=== PATIENT | male | born 1940 | race Caucasian/White ===

== ENCOUNTER 2023-06-10 12:15 | Inpatient (IN) | payer OTHER ==
--- OUTSIDE RECORDS SUMMARY | 2023-06-10 12:20 | XMS REPORT | Continuity of Care Document ---
Author Name Unknown Address [address] [facility] [address] [place] [address] [facility] [address] [facility] [address] [place] [address] Care Team Providers Care Airborne And Air Delivery Specialist Name Role Phone MARVIN SNELL Primary Care Physician Unavailab Marvin Arguello Attending Clinician Unavailable RED DAUGHERTY Attending Clinician Unavailable TUNDE LOPEZ Attending Clinician Unavailable GLENYS QUARLES Attending Clinician UnavailGlenys [place] Attending Clinician [phone] Doctor Unassigned, [place] Attending Clinician U Red Suárez MD Attending Clinician [phone], [facility] Lab Attending Clinician Unavailable , [facility] Surg Spec Procedure Attending Clinician Unavailable Nurse, [facility] Surgery Gu Attending Clinician TERRI Hernandez Attending Clinician Unavailable Gramm Terri GIVENS Attending Clinician [phone] Only, [facility] Test Attending Clinician Unavailable Hosea Alcaraz MD Attending Clinician [phone] [place]_A_AH Attending Clinician Unavailable Marcin Escobedo MD Attending Clinician [phone] Room, [facility] Uro Procedure Attending Clinician UnaMARCIN Mc Attending Clinician Unavailable Jaya MCCARTY, Lisa Attending Clinician Unavailable Tunde Lopez MD Attending Clinician [phone] RED DAUGHERTY Admitting Clinician Unavailable TUNDE LOPEZ Admitting Clinician Unavailable Red Daugherty MD Admitting Clinician [phone] [place]_A_AH Admitting Clinician Unavailable Grayson MARSHALL, Tunde Admitting Clinician Payers Payer Name Policy Type Policy Number Effective Date Expirati on Date Source ROSALIND TROTTER [id number] 2019 00:00:00 [employer] (MEDICARE REPLACEMENT/ADVANT AGE - HMO) [id number] 2019 00:00:00 Problems Condition Name Condition Details Condition Category Status Onset Date Resolution Date Last Treatment Date Treating Clinician Comments Source 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 [facility] Allergies, Adverse Reactions, Alerts Allergy Name Allergy Type Status Severity Reaction(s) Onset Date Inactive Date Treating Clinician Comments Source PENICILL IN DRUG INGREDI Active Unknown-Cmnt 2019-02 0-05 00:00: 00 [facility] Penicill in Propensi ty to adverse reaction s Active Unknown - See comments 2019-02 0-05 00:00: 00 [facility] pcn Adverse Reaction Active Info Not Available [facility] Social History Social Habit Start Date Stop Date Quantity Comments Source Gender identity [facility] History SDOH Alcohol Std Drinks [facility] History SDOH Alcohol Binge [facility] History SDOH Alcohol Comment [facility] History of Social function 2023-03-20 00:00:00 2023-03-20 00:00:00 [facility] Alcohol intake 2023-03-20 00:00:00 2023-03-20 00:00:00 Lifetime non-drinker (finding) [facility] Exposure to SARS-CoV-2 (event) 2022-03-28 00:00:00 2022-04-07 13:24:00 Not sure [facility] Tobacco use and exposure 2021-09-18 00:00:00 2021-09-18 00:00:00 Smokeless tobacco non-user [facility] History SDOH Alcohol Frequency 2019-11-21 00:00:00 2019-11-21 00:00:00 1 [facility] Sex Assigned At 1940 00:00:00 1940 00:00:00 [facility] Smoking Status Start Date Stop Date Source Never smoked tobacco [facility] Medications Ordered Medication Name Filled Medication Name Start Date Stop Date Current Medication? Ordering Clinician Indication Dosage Frequency Signature (SIG) Comments Components Source tamsulosin 0.4 mg 24 hr capsule 03-20 13:56: 33 Yes .4mg 1 capsule. [facility] gentamicin injection 80 mg 2021-02 20:30: 00 11-25 19:43 :00 No [id number] 80mg [facility] Nitrofurant oin&Nit. Macrocryst (MACROBID) 100 mg capsule 2021-02 0 00:00: 00 11-26 04:59 :00 No [id number] 100mg Take 1 capsule by mouth in the morning and 1 capsule in the evening. Do all this for 7 days. [facility] sulfamethox azole-trime thoprim (BACTRIM DS) 800-160 mg per tablet 9-06 00:00: 00 10-28 04:59 :00 No [id number] 1{tbl} Take 1 tablet by mouth in the morning and 1 tablet in the evening. Do all this for 5 days. [facility] gabapentin 300 mg capsule 2019-02 00:00: 00 Yes [id number] 300mg Take 1 capsule by mouth every 8 (eight) hours as needed for Pain (scale 4-6). [facility] ibuprofen 200 mg tablet 2019-02 216 00:00: 00 Yes [id number] 400mg Take 2 tablets by mouth every 6 (six) hours as needed for Pain (scale 1-3). [facility] carvediloL 12.5 mg tablet 2019-02 016 00:00: 00 Yes [id number] 12.5mg Take 1 tablet by mouth 2 (two) times daily with meals. [facility] Tamsulosin HCl Tamsulosin HCl 10-13 00:00: 00 04-10 00:00 :00 No Rohini Davidson 1 capsule [facility] XELPROS 0.005 % dpem 09-29 00:00: 00 Yes INSTILL 1 DROP DAILY IN EACH EYE AT BEDTIME [facility] levothyroxi ne 88 mcg tablet 09-27 00:00: 00 Yes [facility] Vital Signs Vital Name Observation Time Observation Value Comments S ource Systolic blood pressure 2023-03-20 19:57:00 146 mm[Hg] [facility] Diastolic blood pressure 2023-03-20 19:57:00 64 mm[Hg] [facility] Heart rate 2023-03-20 19:52:00 84 /min [facility] Body temperature 2023-03-20 19:52:00 36.22 Dottie [facility] Respiratory rate 2023-03-20 19:52:00 18 /min [facility] Body height 2023-03-20 19:52:00 170.2 cm [facility] Body weight 2023-03-20 19:52:00 53.706 kg [facility] BMI 2023-03-20 19:52:00 18.54 kg/m2 [facility] Oxygen saturation in Arterial blood by Pulse oximetry 2023-03-20 19:52:00 97 /min [facility] Systolic blood pressure 2022-09-03 19:31:00 153 mm[Hg] [facility] Diastolic blood pressure 2022-09-03 19:31:00 84 mm[Hg] [facility] Heart rate 2022-09-03 19:29:00 88 /min [facility] Body temperature 2022-09-03 19:29:00 36.94 Dottie [facility] Respiratory rate 2022-09-03 19:29:00 18 /min [facility] Body weight 2022-09-03 19:29:00 53.071 kg [facility] BMI 2022-09-03 19:29:00 18.32 kg/m2 [facility] Oxygen saturation in Arterial blood by Pulse oximetry 2022-09-03 19:29:00 95 /min [facility] Systolic blood pressure 2022-08-06 19:33:00 141 mm[Hg] [facility] Diastolic blood pressure 2022-08-06 19:33:00 62 mm[Hg] [facility] Heart rate 2022-08-06 19:33:00 74 /min [facility] Respiratory rate 2022-08-06 19:33:00 18 /min [facility] Body height 2022-08-06 19:33:00 170.2 cm [facility] Body weight 2022-08-06 19:33:00 53.524 kg [facility] BMI 2022-08-06 19:33:00 18.48 kg/m2 [facility] Oxygen saturation in Arterial blood by Pulse oximetry 2022-08-06 19:33:00 97 /min [facility] Systolic blood pressure 2022-04-07 19:59:00 139 mm[Hg] [facility] Diastolic blood pressure 2022-04-07 19:59:00 59 mm[Hg] [facility] Heart rate 2022-04-07 19:58:00 90 /min [facility] Body temperature 2022-04-07 19:58:00 36.44 Dottie [facility] Respiratory rate 2022-04-07 19:58:00 18 /min [facility] Body height 2022-04-07 19:58:00 170.2 cm [facility] Body weight 2022-04-07 19:58:00 57.516 kg [facility] BMI 2022-04-07 19:58:00 19.86 kg/m2 [facility] Oxygen saturation in Arterial blood by Pulse oximetry 2022-04-07 19:58:00 99 /min [facility] Systolic blood pressure 2022-01-06 20:43:00 165 mm[Hg] [facility] Diastolic blood pressure 2022-01-06 20:43:00 76 mm[Hg] [facility] Heart rate 2022-01-06 20:43:00 83 /min [facility] Body temperature 2022-01-06 20:42:00 36.5 Dottie [facility] Respiratory rate 2022-01-06 20:42:00 16 /min [facility] Body height 2022-01-06 20:42:00 170.2 cm [facility] Body weight 2022-01-06 20:42:00 57.607 kg [facility] BMI 2022-01-06 20:42:00 19.89 kg/m2 [facility] Oxygen saturation in Arterial blood by Pulse oximetry 2022-01-06 20:42:00 100 /min [facility] Systolic blood pressure 2021-11-25 19:27:00 181 mm[Hg] [facility] Diastolic blood pressure 2021-11-25 19:27:00 76 mm[Hg] [facility] Heart rate 2021-11-25 19:26:00 82 /min [facility] Body temperature 2021-11-25 19:26:00 36.44 Dottie [facility] Respiratory rate 2021-11-25 19:26:00 18 /min [facility] Body height 2021-11-25 19:26:00 170.2 cm [facility] Body weight 2021-11-25 19:26:00 55.792 kg [facility] BMI 2021-11-25 19:26:00 19.26 kg/m2 [facility] Oxygen saturation in Arterial blood by Pulse oximetry 2021-11-25 19:26:00 99 /min [facility] Body height 2021-10-30 18:27:00 170.2 cm [facility] Body weight 2021-10-30 18:27:00 53.252 kg [facility] BMI 2021-10-30 18:27:00 18.39 kg/m2 [facility] Body weight 2021-10-18 19:32:00 54.704 kg [facility] BMI 2021-10-18 19:32:00 18.89 kg/m2 [facility] Body temperature 2021-09-18 19:04:00 36.56 Dottie [facility] Respiratory rate 2021-09-18 19:04:00 18 /min [facility] Body height 2021-09-18 19:04:00 170.2 cm [facility] Body weight 2021-09-18 19:04:00 57.425 kg [facility] BMI 2021-09-18 19:04:00 19.83 kg/m2 [facility] Oxygen saturation in Arterial blood by Pulse oximetry 2021-09-18 19:04:00 97 /min [facility] Systolic blood pressure 2021-09-18 19:04:00 129 mm[Hg] [facility] Diastolic blood pressure 2021-09-18 19:04:00 76 mm[Hg] [facility] Heart rate 2021-09-18 19:04:00 90 /min [facility] Procedures Procedure Date / Time Performed Performing Clinician Source REFERRAL- REQUEST/RESPONSE 2023-03-20 06:01:00 D octor Unassigned, [place] [facility] EXTERNAL PROVIDER RECORDS 2023-02-06 06:01:00 Do ctor Unassigned, [place] [facility] AUTHORIZATION FOR RELEASE OF PHI 2023-01-20 06:01:00 Doctor Unassigned, [place] [facility] DME/SUPPLY JUSTIFICATION 2022-12-26 06:01:00 Doc tor Unassigned, [place] [facility] DME/SUPPLY JUSTIFICATION 2022-11-04 05:01:00 Doc tor Unassigned, [place] [facility] EXTERNAL PROVIDER RECORDS 2022-09-09 05:01:00 Do ctor Unassigned, [place] [facility] US RETROPERITONEAL COMPLETE 2022-08-08 17:39:41 Red Daugherty [facility] PATIENT FINANCIAL POLICY 2022-08-08 16:19:58 Doctor Unassigned, [place] [facility] CONSENT/REFUSAL FOR DIAGNOSIS AND TREATMENT 2022-08-08 16:19:28 Doctor Unassigned, [place] [facility] ASSIGNMENT OF BENEFITS 2022-08-08 16:19:08 Docto r Unassigned, [place] [facility] AUTHORIZATION FOR RELEASE OF PHI 2022-08-05 05:01:00 Doctor Unassigned, [place] [facility] SCANNED LAB RESULTS 2022-08-01 05:01:00 Doctor Finn nassigned, [place] [facility] POCT URINALYSIS AUTO 2022-01-06 20:48:00 Court Quarles [facility] POCT URINALYSIS AUTO 2021-11-25 19:24:00 Stalin Daugherty [facility] DISCLOSURE AND CONSENT, MEDICAL AND SURGICAL PROCEDURES 2021-11-25 05:01:00 Doctor Unassigned, [place] [facility] POCT URINALYSIS AUTO 2021-09-18 19:18:00 Court Quarles [facility] Encounters Start Date/Time End Date/Time Encounter Type Admission Type Attending [facility] Care Facility Care Department Encounter ID Source 2021-03-13 11:29:[address] [facility] [id number] [facility] 2020-12-15 07:25:47 Outpatient RED DAUGHERTY [facility] [id number] [facility] 2020-12-14 22:47:04 Inpatient TUNDE JEFFERSON [facility] [id number] [facility] 2020-12-14 22:46:02 Emergency [facility] [id number] [facility] 2023-09-25 14:15:00 2023-09-25 14:15:00 Outpatient R GLENYS QUARLES [facility] [id number] [facility] 2023-03-20 13:45:00 2023-03-20 14:16:26 Outpatient R GLENYS QUARLES [facility] [id number] [facility] 2023-03-20 13:45:00 2023-03-20 14:16:26 Office Visit Robina [facility] BUILDING 1.2.840.114 350.1.13.10 4.2.7.2.686 [id number] [facility] 2023-03-20 00:00:00 2023-03-20 00:00:00 Orders Only Doctor Unassigned, [place] [facility] 1.2.840.114 350.1.13.10 4.2.7.2.686 [id number] [id number] [facility] 2023-03-11 09:15:00 2023-03-11 09:15:00 [facility] [id number] 2023-03-09 13:45:00 2023-03-09 13:45:00 [facility] [id number] [facility] 2023-02-06 00:00:00 2023-02-06 00:00:00 Orders Only Doctor Unassigned, [place] [facility] 1.2.840.114 350.1.13.10 4.2.7.2.686 [id number] [facility] 2023-01-22 00:00:00 2023-01-22 00:00:00 [facility] 1.2.840.114 350.1.13.10 4.2.7.2.686 [id number] [facility] 2023-01-21 00:00:00 2023-01-21 00:00:00 Telephone Robina [facility] 1.2.840.114 350.1.13.10 4.2.7.2.686 [id number] [facility] 2023-01-20 00:00:00 2023-01-20 00:00:00 Orders Only Doctor Unassigned, [place] [facility] 1.2.840.114 350.1.13.10 4.2.7.2.686 [id number] [facility] 2023-01-15 00:00:00 2023-01-15 00:00:00 Telephone [facility] 1.2.840.114 350.1.13.10 4.2.7.2.686 [id number] [facility] 2022-12-29 00:00:00 2022-12-29 00:00:00 Telephone [facility] 1.2.840.114 350.1.13.10 4.2.7.2.686 [id number] [facility] 2022-12-26 00:00:00 2022-12-26 00:00:00 Orders Only Doctor Unassigned, [place] [facility] 1.2.840.114 350.1.13.10 4.2.7.2.686 [id number] [facility] 2022-11-05 00:00:00 2022-11-05 00:00:00 Telephone [facility] 1.2.840.114 350.1.13.10 4.2.7.2.686 [id number] [facility] 2022-11-04 00:00:00 2022-11-04 00:00:00 Orders Only Doctor Unassigned, [place] [facility] 1.2840.114 350.1.13.10 4.2.7.2.686 [id number] [facility] 2022-09-09 00:00:00 2022-09-09 00:00:00 Orders Only Doctor Unassigned, [place] [facility] 1.2840.114 350.1.13.10 4.2.7.2.686 [id number] [facility] 2022-09-03 14:15:00 2022-09-03 15:29:47 Outpatient R ROBINA [facility] [id number] [facility] 2022-09-03 14:15:00 2022-09-03 15:29:47 Office Visit Quarles, [facility] 1..840.114 350.1.13.10 4.2.7.2.686 [id number] [facility] 2022-08-08 11:20:33 2022-08-08 23:59:00 [facility] [id number] 2022-08-08 11:20:33 2022-08-08 23:59:00 Hospital Encounter Dat [facility] 1.2840.114 350.1.13.10 4.2.7.2.686 [id number] [facility] 2022-08-07 00:00:00 2022-08-07 00:00:00 Telephone Quarles, [facility] 1.2.840.114 350.1.13.10 4.2.7.2.686 [id number] [facility] 2022-08-06 14:45:00 2022-08-06 15:43:13 [facility] [id number] [facility] 2022-08-06 14:45:00 2022-08-06 15:43:13 Office Visit Glenys Quarles [facility] 1.2.840.114 350.1.13.10 4.2.7.2.686 [id number] [facility] 2022-08-06 14:00:00 2022-08-06 14:15:00 [facility] 2, Adc Lab Dat [facility] 1.2.840.114 350.1.13.10 4.2.7.2.686 [id number] [facility] 2022-08-05 00:00:00 2022-08-05 00:00:00 Orders Only Doctor Unassigned, [place] [facility] 1.2.840.114 350.1.13.10 4.2.7.2.686 [id number] [facility] 2022-08-01 00:00:00 2022-08-01 00:00:00 Orders Only Doctor Unassigned, [place] [facility] 1.2.840.114 350.1.13.10 4.2.7.2.686 [id number] [facility] 2022-08-01 00:00:00 2022-08-01 00:00:00 Telephone Dat [facility] 1.2.840.114 350.1.13.10 4.2.7.2.686 [id number] [facility] 2022-04-07 13:45:00 2022-04-07 14:57:34 [facility] [id number] [facility] 2022-04-07 13:45:00 2022-04-07 14:57:34 [facility] 1.2.840.114 350.1.13.10 4.2.7.2.686 [id number] [facility] 2022-01-06 14:15:00 2022-01-06 15:49:34 [facility] [id number] [facility] 2022-01-06 14:15:00 2022-01-06 15:49:34 Office Visit Glenys Quarles [facility] 1.2840.114 350.1.13.10 4.2.7.2.686 [id number] [facility] 2021-11-25 14:00:00 2021-11-25 15:08:36 [facility] [id number] 2021-11-25 14:00:00 2021-11-25 15:08:36 Office Visit Red Daugherty Rm, Adc Surg Spec Procedure [facility] 1..840.114 350.1.13.10 4.2.7.2.686 [id number] [facility] 2021-11-25 00:00:00 2021-11-25 00:00:00 Orders Only Doctor Unassigned, [place] [facility] 1.840.114 350.1.13.10 4.2.7.2.686 [id number] [id number] [facility] 2021-11-21 14:00:00 2021-11-21 15:35:44 Outpatient R RED DAUGHERTY [facility] [id number] [facility] 2021-11-21 14:00:00 2021-11-21 15:35:44 Nurse Visit Nurse, Adc Surgery Gu Red Daugherty [facility] 1..840.114 350.1.13.10 4.2.7.2.686 [id number] [facility] 2021-11-20 00:00:00 2021-11-20 00:00:00 Telephone Dat [facility] BUILDING 1.2.840.114 350.1.13.10 4.2.7.2.686 [id number] [facility] 2021-11-18 00:00:00 2021-11-18 00:00:00 Telephone [facility] 1.2.840.114 350.1.13.10 4.2.7.2.686 [id number] [facility] 2021-11-18 00:00:00 2021-11-18 00:00:00 Case Management Glenys Quarles [facility] 1.2.840.114 350.1.13.10 4.2.7.2.686 [id number] [facility] 2021-11-13 13:00:00 2021-11-13 13:30:00 Nurse Visit Nurse, Adc Surgery Dat [facility] 1.2.840.114 350.1.13.10 4.2.7.2.686 [id number] [facility] 2021-11-13 13:00:00 2021-11-13 13:00:00 Outpatient [facility] [id number] [facility] 2021-11-08 00:00:00 2021-11-08 00:00:00 [facility] 1.2.840.114 350.1.13.10 4.2.7.2.686 [id number] [facility] 2021-10-30 13:15:00 2021-10-30 13:50:02 Nurse Visit Nurse, Adc Surgery Dat [facility] BUILDING 1.2.840.114 350.1.13.10 4.2.7.2.686 [id number] [facility] 2021-10-30 13:15:00 2021-10-30 13:15:00 Outpatient R DAT [facility] [id number] [facility] 2021-10-22 00:00:00 2021-10-22 00:00:00 [facility] 1.2.840.114 350.1.13.10 4.2.7.2.686 [id number] [facility] 2021-10-18 14:15:00 2021-10-18 14:24:57 Outpatient R DAT [facility] [id number] [facility] 2021-10-18 14:15:00 2021-10-18 14:24:57 Nurse Visit Nurse, [facility] Surgery Dat [facility] 1.2.840.114 350.1.13.10 4.2.7.2.686 [id number] [facility] 2021-09-18 13:30:00 2021-09-18 14:32:42 Outpatient R GLENYS QUARLES [facility] [id number] [facility] 2021-09-18 13:30:00 2021-09-18 14:32:42 [facility] 1.2.840.114 350.1.13.10 4.2.7.2.686 [id number] [facility] 2021-09-11 14:00:00 2021-09-11 14:00:00 Outpatient R ROBINAARIAGLENYS [facility] [id number] [facility] 2021-05-27 15:30:00 2021-05-27 16:16:00 Outpatient R DAT RED [facility] [id number] [facility] 2021-05-27 15:30:00 2021-05-27 16:16:00 Office Visit Red Daugherty Rm, Adc Surg Spec Procedure [facility] 1.2.840.114 350.1.13.10 4.2.7.2.686 [id number] [facility] 2021-05-17 14:00:00 2021-05-17 14:23:19 Outpatient R RED DAUGHERTY [facility] [id number] [facility] 2021-05-17 14:00:00 2021-05-17 14:23:19 Nurse Visit Nurse, [facility] Surgery Gu Red Daugherty [facility] 1.2.840.114 350.1.13.10 4.2.7.2.686 [id number] [facility] 2021-04-15 09:00:00 2021-04-15 10:22:20 Outpatient R RED DAUGHERTY [facility] [id number] [facility] 2021-04-15 09:00:00 2021-04-15 10:22:20 Office Visit Red Daugherty [facility] 1.2.840.114 350.1.13.10 4.2.7.2.686 [id number] [facility] 2021-04-15 09:00:00 2021-04-15 10:22:20 Outpatient R RED DAUGHERTY [facility] [id number] [facility] 2021-04-15 09:00:00 2021-04-15 10:22:20 [facility] [id number] [facility] 2021-04-15 09:00:00 2021-04-15 09:30:00 Office Visit Red Daugherty Rm, Adc Surg Spec Procedure [facility] 1.840.114 350.1.13.10 4.2.7.2.686 [id number] [facility] 2021-04-15 09:00:00 2021-04-15 09:00:00 Outpatient R [facility] [id number] [facility] 2021-04-15 09:00:00 2021-04-15 09:00:00 [id number] 2021-04-15 09:00:00 2021-04-15 09:00:00 [facility] [id number] [facility] 2021-04-15 09:00:00 2021-04-15 09:00:00 [facility] [id number] [facility] 2021-04-15 09:00:00 2021-04-15 09:00:00 Outpatient R [facility] [id number] [facility] 2021-04-15 00:00:00 2021-04-15 00:00:00 Orders Only Doctor Unassigned, [place] [facility] 1.84.114 350.1.13.10 4.2.7.2.686 [id number] [facility] 2021-04-03 09:30:00 2021-04-03 10:05:48 Outpatient R TERRI SHETH [facility] [id number] [facility] 2021-04-03 09:30:00 2021-04-03 09:45:00 Nurse Visit Nurse, Adc Surgery Terri Alfredo [facility] 1.840.114 350.1.13.10 4.2.7.2.686 [id number] [facility] 2021-04-03 09:30:00 2021-04-03 09:30:00 Outpatient R TERRI SHETH [facility] [id number] [facility] 2021-03-28 10:00:00 2021-03-28 10:00:00 Outpatient R RED DAUGHERTY [facility] [id number] [facility] 2021-03-28 10:00:00 2021-03-28 10:00:00 Outpatient R RED DAUGHERTY [facility] [id number] [facility] 2021-03-27 00:00:00 2021-03-27 00:00:00 Telephone Red Daugherty [facility] 1.2.840.114 350.1.13.10 4.2.7.2.686 [id number] [facility] 2021-03-20 14:15:00 2021-03-20 14:16:10 Outpatient R JACKIE SHETHELA [facility] [id number] [facility] 2021-03-20 14:15:00 2021-03-20 14:16:10 Nurse Visit Nurse, [facility] Surgery Terri Alfredo [facility] 1..840.114 350.1.13.10 4.2.7.2.686 [id number] [facility] 2021-03-20 14:15:00 2021-03-20 14:16:10 Outpatient R DOMENIC TERRI [facility] [id number] [facility] 2021-02-21 15:45:00 2021-02-21 17:15:54 Outpatient R RED DAUGHERTY [facility] [id number] [facility] 2021-02-21 15:45:00 2021-02-21 17:15:54 Office Visit Red Daugherty Rm, Adc Surg Spec [facility] 1.2.840.114 350.1.13.10 4.2.7.2.686 [id number] [facility] 2021-02-21 15:45:00 2021-02-21 17:15:54 [facility] [id number] [facility] 2021-02-21 15:45:00 2021-02-21 17:15:54 Outpatient R DAT [facility] [id number] [facility] 2021-02-21 15:45:00 2021-02-21 17:15:54 Outpatient R DAT [facility] [id number] [facility] 2021-02-11 13:30:00 2021-02-11 14:35:32 Outpatient R DAT [facility] [id number] [facility] 2021-02-11 13:30:00 2021-02-11 14:35:32 Outpatient R DAT [facility] [id number] [facility] 2021-02-11 13:30:00 2021-02-11 14:35:32 Outpatient R DAT [facility] [id number] [facility] 2021-02-11 13:30:00 2021-02-11 13:45:00 Nurse Visit Nurse, [facility] 1.840.114 350.1.13.10 4.2.7.2.686 [id number] [facility] 2021-02-11 13:30:00 2021-02-11 13:30:00 Outpatient R DAT [facility] [id number] [facility] 2021-02-11 00:00:00 2021-02-11 00:00:00 Orders Only Doctor Unassigned, [place] [facility] 1..840.114 350.1.13.10 4.2.7.2.686 [id number] [facility] 2021-01-31 00:00:00 2021-01-31 00:00:00 Telephone Red Daugherty [facility] 1.2.840.114 350.1.13.10 4.2.7.2.686 [id number] [facility] 2021-01-28 14:06:17 2021-01-28 15:43:02 Office Visit Terri Sheth [facility] 1.2.840.114 350.1.13.10 4.2.7.2.686 [id number] [facility] 2021-01-28 14:00:00 2021-01-28 15:43:02 Outpatient R TERRI SHETH [facility] [id number] [facility] 2021-01-28 14:00:00 2021-01-28 15:43:02 Outpatient R TERRI SHETH [facility] [id number] [facility] 2021-01-28 14:00:00 2021-01-28 15:43:02 Outpatient R TERRI SHETH [facility] [id number] [facility] 2021-01-28 14:00:00 2021-01-28 15:43:02 Outpatient R TERRI SHETH [facility] [id number] [facility] 2020-08-30 00:00:00 2020-08-30 00:00:00 Orders Only Doctor Unassigned, [place] [facility] 1.2.840.114 350.1.13.10 4.2.7.2.686 [id number] [facility] 2020-07-30 15:30:00 2020-07-30 16:12:10 Outpatient R TERRI SHETH [facility] [id number] [facility] 2020-07-30 15:30:00 2020-07-30 16:12:10 Outpatient R TERRI SHETH [facility] [id number] [facility] 2020-07-30 15:29:48 2020-07-30 16:12:10 Office [facility] 1.2.840.114 350.1.13.10 4.2.7.2.686 [id number] [facility] 2020-07-30 15:30:00 2020-07-30 15:30:00 Outpatient R TERRI SHETH [facility] [id number] [facility] 2020-06-20 13:30:00 2020-06-20 14:53:03 Outpatient R TERRI SHETH [facility] [id number] [facility] 2020-06-20 13:30:00 2020-06-20 14:53:03 Outpatient R DOMENICTERRI [facility] [id number] [facility] 2020-06-20 13:27:48 2020-06-20 14:53:03 Office Visit Terri Sheth [facility] 1.2.840.114 350.1.13.10 4.2.7.2.686 [id number] [facility] 2020-06-20 13:30:00 2020-06-20 13:30:00 Outpatient R TERRI SHETH [facility] [id number] [facility] 2020-06-20 00:00:00 2020-06-20 00:00:00 Orders Only Doctor Unassigned, [place] [facility] 1.2.840.114 350.1.13.10 4.2.7.2.686 [id number] [facility] 2020-05-07 14:15:00 2020-05-07 15:21:54 [facility] [id number] 2020-05-07 14:15:00 2020-05-07 15:21:54 [facility] [id number] [facility] 2020-05-07 14:11:00 2020-05-07 15:21:54 [facility] 1.2.840.114 350.1.13.10 4.2.7.2.686 [id number] [facility] 2020-05-07 14:15:00 2020-05-07 14:15:00 [facility] [id number] 2020-04-24 14:00:00 2020-04-24 14:07:17 Outpatient R DAT [facility] [id number] [facility] 2020-04-24 14:00:00 2020-04-24 14:07:17 Outpatient R DAT [facility] [id number] [facility] 2020-04-24 14:00:00 2020-04-24 14:07:17 [facility] [id number] [facility] 2020-04-24 14:00:00 2020-04-24 14:00:00 Outpatient R [facility] [id number] [facility] 2020-04-23 00:00:00 2020-04-23 00:00:00 Telephone Dat [facility] 1.2.840.114 350.1.13.10 4.2.7.2.686 [id number] [facility] 2020-04-06 14:00:00 2020-04-06 14:00:00 Outpatient R [facility] [id number] [facility] 2020-04-06 14:00:00 2020-04-06 10:04:45 [facility] [id number] [facility] 2020-04-06 14:00:00 2020-04-06 10:04:45 Outpatient R DAT [facility] [id number] [facility] 2020-04-06 09:54:12 2020-04-06 10:04:45 Nurse Visit Nurse, [facility] 1.2.840.114 350.1.13.10 4.2.7.2.686 [id number] [facility] 2020-03-15 11:00:00 2020-03-15 12:14:34 Outpatient R DAT [facility] [id number] [facility] 2020-03-15 11:00:00 2020-03-15 12:14:34 Outpatient R DAT [facility] [id number] [facility] 2020-03-15 10:54:44 2020-03-15 12:14:34 Nurse Visit Nurse, [facility] 1.2.840.114 350.1.13.10 4.2.7.2.686 [id number] [facility] 2020-03-15 11:00:00 2020-03-15 11:00:00 Outpatient R [facility] [id number] [facility] 2020-03-15 00:00:00 2020-03-15 00:00:00 Orders Only Doctor Unassigned, [place] [facility] 1.2.840.114 350.1.13.10 4.2.7.2.686 [id number] [facility] 2020-03-12 14:00:00 2020-03-12 14:34:26 Outpatient R DAT [facility] [id number] [facility] 2020-03-12 14:00:00 2020-03-12 14:34:26 Outpatient R DAT [facility] [id number] [facility] 2020-03-12 13:35:40 2020-03-12 14:34:26 Nurse Visit Nurse, [facility] Surgery Dat [facility] Professio [facility] 1.2.840.114 350.1.13.10 4.2.7.2.686 [id number] [facility] 2020-03-12 14:00:00 2020-03-12 14:00:00 Outpatient R DAT [facility] [id number] [facility] 2020-03-09 13:03:03 2020-03-09 13:28:10 Nurse Visit Nurse, [facility] 1.2.840.114 350.1.13.10 4.2.7.2.686 [id number] [facility] 2020-03-09 13:00:00 2020-03-09 13:28:10 [facility] [id number] 2020-03-09 13:00:00 2020-03-09 13:28:10 Outpatient R DAT [facility] [id number] [facility] 2020-03-09 13:00:00 2020-03-09 13:00:00 Outpatient R [facility] [id number] [facility] 2020-02-14 00:00:00 2020-02-14 00:00:00 Telephone Dat [facility] Building 1.2.840.114 350.1.13.10 4.2.7.2.686 [id number] [facility] 2020-02-07 00:00:00 2020-02-07 00:00:00 [facility] 1.2.840.114 350.1.13.10 4.2.7.2.686 [id number] [facility] 2020-02-06 09:09:56 2020-02-06 11:03:21 Office Visit Dat [facility] Building 1.284.114 350.1.13.10 4.2.7.2.686 [id number] [facility] 2020-02-06 09:15:00 2020-02-06 09:15:00 [facility] [id number] 2020-01-31 10:48:00 2020-02-01 13:51:00 Hospital Encounter [facility] 1.2.114 350.1.13.10 4.2.7.2.686 [id number] [facility] 2020-01-30 14:56:15 2020-01-30 15:11:15 Laboratory Only Only, [facility] 1.284.114 350.1.13.10 4.2.7.2.686 [id number] [facility] 2020-01-30 14:45:00 2020-01-30 14:45:00 Outpatient R [facility] [id number] [facility] 2020-01-30 00:00:00 2020-01-30 00:00:00 Orders Only Doctor Unassigned, [place] [facility] 1.2.114 350.1.13.10 4.2.7.2.686 [id number] [facility] 2020-01-18 00:00:00 2020-01-18 00:00:00 [facility] 1.284.114 350.1.13.10 4.2.7.2.686 [id number] [facility] 2020-01-09 11:19:20 2020-01-09 13:02:24 Telemedici ne Visit [facility] 1.2840.114 350.1.13.10 4.2.7.2.686 [id number] [facility] 2020-01-09 11:30:00 2020-01-09 11:30:00 Outpatient R RED DAUGHERTY [facility] [id number] [facility] 2019-12-31 02:52:00 2019-12-31 02:52:00 Outpatient [place]-Mbayo _A_AH VFP VFP [id number] [facility] 2019-12-27 00:00:00 2019-12-27 00:00:00 Orders Only Doctor Unassigned, [place] [facility] 1.20.114 350.1.13.10 4.2.7.2.686 [id number] [facility] 2019-12-19 13:24:02 2019-12-19 16:03:35 Office Visit Red Daugherty , [facility] 1.2840.114 350.1.13.10 4.2.7.2.686 [id number] [facility] 2019-12-19 13:30:00 2019-12-19 13:30:00 Outpatient R RED DAUGHERTY [facility] [id number] [facility] 2019-12-15 13:19:31 2019-12-15 15:37:37 Office Visit Marcin Escobedo, Ronald Uro Procedure [facility] 1.2.114 350.1.13.10 4.2.7.2.686 [id number] [facility] 2019-12-15 14:00:00 2019-12-15 14:00:00 Outpatient R MARCIN ESCOBEDO [facility] [id number] [facility] 2019-12-12 00:00:00 2019-12-12 00:00:00 Telephone Marcin Escobedo [facility] 1.2.840.114 350.1.13.10 4.2.7.2.686 [id number] [facility] 2019-12-08 14:51:56 2019-12-09 09:27:14 Office Visit Marcin Escobedo, Ronald Uro Procedure [facility] 1.2.840.114 350.1.13.10 4.2.7.2.686 [id number] [facility] 2019-12-08 14:00:00 2019-12-08 14:00:00 Outpatient R MARCIN ESCOBEDO [facility] [id number] [facility] 2019-12-05 00:00:00 2019-12-05 00:00:00 Transition of Care [place] 1.2.840.114 350.1.13.10 4.2.7.2.686 [id number] [facility] 2019-11-29 17:47:00 2019-12-02 16:54:00 Hospital Encounter Tunde Lopez [facility] 1.2.840.114 350.1.13.10 4.2.7.2.686 [id number] [facility] 2019-11-29 00:00:00 2019-11-29 00:00:00 Telephone [facility]th [facility] 1.2.840.114 350.1.13.10 4.2.7.2.686 [id number] [facility] 2019-11-28 13:57:45 2019-11-28 23:59:00 Hospital Encounter Terri Sheth [facility] 1.2.840.114 350.1.13.10 4.2.7.2.686 [id number] [facility] 2019-11-28 00:00:00 2019-11-28 00:00:00 Outpatient R TERRI SHETH [facility] [id number] [facility] 2019-11-21 10:10:30 2019-11-21 12:03:21 Office Visit Dat [facility] Building 1.2.840.114 350.1.13.10 4.2.7.2.686 [id number] [facility] 2019-11-21 11:25:58 2019-11-21 11:40:58 [facility] 2, Adc Lab Lex[facility] Building 1.2.840.114 350.1.13.10 4.2.7.2.686 [id number] [facility] 2019-11-21 10:00:00 2019-11-21 10:00:00 Outpatient R DAT [facility] [id number] [facility] 2019-11-21 00:00:00 2019-11-21 00:00:00 Orders Only Doctor Unassigned, [place] [facility] 1.2.840.114 350.1.13.10 4.2.7.2.686 [id number] [facility] 2019-10-14 11:41:00 2019-10-14 11:41:00 [facility] [id number] [facility] 2019-09-13 11:00:00 2019-09-13 11:00:00 [facility] [id number] [facility] 2019-09-02 09:43:00 2019-09-02 09:43:00 [facility] [id number] [facility] 2019-09-02 09:00:00 2019-09-02 09:00:00 [facility] [id number] [facility] 2019-08-31 08:30:00 2019-08-31 08:30:00 [facility] [id number] [facility] 2019-08-25 14:00:00 2019-08-25 14:00:00 [facility] [id number] [facility] 2019-08-18 15:00:00 2019-08-18 15:00:00 [facility] [id number] [facility] 2019-04-06 07:26:00 2019-04-06 07:26:00 Outpatient [place]-Mbayo _A_AH VFP VFP [id number] [facility] Results Test Description Test Time Test Comments Results Result Co mments Source [facility] URINALYSIS, [id number] 20:49:00 * Test Item Value Reference Range Interpretation Comme nts POCT U SP GRAV (test code = 3255) 1.020 mg/dl 1.005-1.025 POCT PH U (test code = 3254) 6.5 mg/dl 5-8 POCT U LEUK EST (test code = 3263) small Negative - Negative POCT U NIT (test code = 3262) negative Negative - Negati ve POCT U PROT (test code = 3259) Negative - Negative POCT U GLU (test code = 3256) negative Negative - Negati ve POCT U KETONE (test code = 3258) negative Negative - Negative POCT U UROBILI (test code = 3260) 0.2 mg/dl 0.2-1 POCT U BILI (test code = 3261) negative Negative - Negative POCT U BLD (test code = 3257) trace Negative - Negati ve POCT U COLOR (test code = 3266) yellow POCT U APPEAR (test code = 3267) clear Lab Interpretation (test cod e = [id number]) Normal [facility] URINALYSIS, [id number] 19:25:00 * Test Item Value Reference Range Interpretation Comme nts POCT U SP GRAV (test code = 3255) 1.010 mg/dl 1.005-1.025 POCT PH U (test code = 3254) 6.5 mg/dl 5-8 POCT U LEUK EST (test code = 3263) Small Negative - Negative POCT U NIT (test code = 3262) Negative Negative - Negati ve POCT U PROT (test code = 3259) Negative Negative - Negative POCT U GLU (test code = 3256) Negative Negative - Negati ve POCT U KETONE (test code = 3258) Negative Negative - Negative POCT U UROBILI (test code = 3260) 0.2 mg/dl 0.2-1 POCT U BILI (test code = 3261) Negative Negative - Negative POCT U BLD (test code = 3257) Negative Negative - Negati ve POCT U COLOR (test code = 3266) Yellow POCT U APPEAR (test code = 3267) Clear [facility] URINALYSIS, [id number] 19:25:00 * Test Item Value Reference Range Interpretation Comme nts POCT U SP GRAV (test code = 3255) 1.010 mg/dl 1.005-1.025 POCT PH U (test code = 3254) 6.5 mg/dl 5-8 POCT U LEUK EST (test code = 3263) Small Negative - Negative POCT U NIT (test code = 3262) Negative Negative - Negati ve POCT U PROT (test code = 3259) Negative Negative - Negative POCT U GLU (test code = 3256) Negative Negative - Negati ve POCT U KETONE (test code = 3258) Negative Negative - Negative POCT U UROBILI (test code = 3260) 0.2 mg/dl 0.2-1 POCT U BILI (test code = 3261) Negative Negative - Negative POCT U BLD (test code = 3257) Negative Negative - Negati ve POCT U COLOR (test code = 3266) Yellow POCT U APPEAR (test code = 3267) Clear [facility] URINALYSIS, [id number] 19:19:00 * Test Item Value Reference Range Interpretation Comme nts POCT U SP GRAV (test code = 3255) 1.025 mg/dl 1.005-1.025 POCT PH U (test code = 3254) 6.0 mg/dl 5-8 POCT U LEUK EST (test code = 3263) Large Negative - Negative POCT U NIT (test code = 3262) Negative Negative - Negati ve POCT U PROT (test code = 3259) Negative - Negative POCT U GLU (test code = 3256) Negative Negative - Negati ve POCT U KETONE (test code = 3258) Negative Negative - Negative POCT U UROBILI (test code = 3260) 0.2 mg/dl 0.2-1 POCT U BILI (test code = 3261) Negative Negative - Negative POCT U BLD (test code = 3257) Large Negative - Negati ve POCT U COLOR (test code = 3266) Yellow POCT U APPEAR (test code = 3267) Clear [facility]
[2023-06-10 12:55] LABS: Absolute Lymphocytes (CBC) 0.3 K/uL (0.7-4.9); Absolute Monocytes 0.6 K/uL (0.1-1.3); Absolute Neutrophil 8.7 K/uL (1.8-8.0); Basophils % 0.2 % (0-1.3); Hematocrit 34.7 % (39.6-49.0); Hemoglobin 11.4 g/dL (13.6-17.9); MCH 32.3 pg (27.0-35.0); MCHC 32.9 g/dL (32.0-36.0); MCV 98.1 fL (80-100); MPV 9.9 fL (7.6-11.3); Monocytes % 6.1 % (3.3-12.3); Neutrophils % 90.7 % (41.7-73.7); Platelets 216 thou/uL (152-406); RBC Red Blood Cell Count 3.54 M/uL (4.33-5.43); Red Cell Distribution Width 14.1 % (12.1-15.2)
[2023-06-10 13:02] LABS: PT Prothrombin Time 12.1 SECONDS (9.5-12.5); PTT, Activated Partial Thromb 24.3 SECONDS (24.3-36.9); Protime INR 1.1
[2023-06-10 13:19] LABS: Albumin 2.9 g/dL (3.4-5.0); Albumin/Globulin Ratio 0.7 (1.1-1.8); Anion Gap 22.1 mEq/L (5.0-15.0); Bilirubin Total 0.6 mg/dL (0.2-1.0); Globulin 3.9 g/dL (2.3-3.5); Potassium 5.1 mEq/L (3.5-5.1); Protein, Total 6.8 g/dL (6.4-8.2)
[2023-06-10 13:22] LABS: Troponin High Sensitivity 75.9 pg/mL (<58.9)
--- NOTE | 2023-06-10 13:30 | RAD REPORT ---
EXAM DESCRIPTION: CT - [id number] - 06/10/2023 12:48 pm CLINICAL HISTORY: TRAUMA COMPARISON: No comparisons TECHNIQUE: Axial thin cut noncontrast CT images of the head were obtained. Axial thin cut noncontrast CT images of the cervical spine were obtained. Multiplanar reformatted images were generated and reviewed. All CT scans are performed using dose optimization technique as appropriate and may include automated exposure control or mA/KV adjustment according to patient size. FINDINGS: CT HEAD WITHOUT CONTRAST: No acute hemorrhage, hydrocephalus or extra-axial collection is identified. Areas of asymmetric volum e loss along the temporal poles more so on the right with expected dilation of the right temporal hor n. This could relate to prior ischemia or traumatic brain injury, and or a neurodegenerative disorder . No areas of brain edema or midline shift. The paranasal sinuses and mastoids are clear.The calvarium is intact. CT CERVICAL SPINE WITHOUT CONTRAST: No fracture or subluxation. Nkab-rr-nacnvqgg degenerative changes contributing to up to moderate degr ees of neural foraminal narrowing on the right at C4-5 and bilaterally at C5-6. No prevertebral soft tissues swelling is identified. IMPRESSION: No acute traumatic intracranial or cervical spine findings. Chronic findings as above.
--- NOTE | 2023-06-10 13:34 | RAD REPORT ---
EXAM DESCRIPTION: RADChest Single View06/10/2023 1:01 pm CLINICAL HISTORY: weakness COMPARISON: Head C Spine Mpr Wo Con dated 06/10/2023 TECHNIQUE: Portable AP view of the chest. FINDINGS: The lungs are clear with mild diffuse hyperinflation. No pneumothorax or effusion. The ca rdiomediastinal contours are unremarkable. IMPRESSION: No acute cardiopulmonary process.
--- NOTE | 2023-06-10 13:35 | RAD REPORT ---
EXAM DESCRIPTION: RAD - Pelvis - 06/10/2023 1:01 pm CLINICAL HISTORY: fall COMPARISON: No comparisons TECHNIQUE: Single AP view of the pelvis. FINDINGS: The visualized pelvic ring is intact. No suspicious osseous lesions. Mild bilateral hip reilly int degenerative changes of the hip joints. Other pelvic joints are unremarkable. Visualized aspects of the abdomen and soft tissues are unremarkable. IMPRESSION: No acute osseous abnormality of the bony pelvis. Mild bilateral hip joint degenerative c hanges.
[2023-06-10 13:58] LABS: Blood Morphology Comment NOT SEEN (NOT SEEN); Platelet Estimate ADEQ; White Blood Cell Scan OK (OK)
[2023-06-10] MEDS ORDERED: NA CHLORIDE 0.9% 1,000 ML ONE (14:16)
--- NOTE | 2023-06-10 14:33 | EDPHYS ---
Physician Documentation [facility] Name: Enzo Person Age: 82 yrs Sex: Male : 1940 Arrival Date: 06/10/2023 Time: 12:15 Bed 6 Private MD: ED Physician Ryan Montesinos HPI: 06/09 15:46 This 82 yrs old Male presents to ER via EMS with complaints of Fall. rt 15:46 Patient presents to the ED with reported fall. Patient reportedly has not been heard rt from for several days. Police made entry for a well check, states that they found the patient on the ground. History is limited due to patient with confusion/dementia. Unclear how long he has been on the ground for. No further history could be obtained, symptoms are moderate severity, no other aggravating alleviating factors.. Historical: - Allergies: 12: No Known Allergies; rs5 - PMHx: 12:25 Unable to Obtain; rs5 - Immunization history:: Adult Immunizations unknown. - Infectious Disease History:: Denies. - Social history:: Smoking status: Patient denies any tobacco usage or history of. - Family history:: not pertinent. ROS: 15:46 Unable to obtain ROS due to altered mental status, rt Exam: 15:46 Chest/axilla: Normal chest wall appearance and motion. Nontender with no deformity. rt No lesions are appreciated. Cardiovascular: Regular rate and rhythm with a normal S1 and S2. No gallops, murmurs, or rubs. Normal PMI, no JVD. No pulse deficits. Respiratory: Lungs have equal breath sounds bilaterally, clear to auscultation and percussion. No rales, rhonchi or wheezes noted. No increased work of breathing, no retractions or nasal flaring. Abdomen/GI: Soft, non-tender, with normal bowel sounds. No distension or tympany. No guarding or rebound. No evidence of tenderness throughout. Skin: Warm, dry with normal turgor. Normal color with no rashes, no lesions, and no evidence of cellulitis. MS/ Extremity: Pulses equal, no cyanosis. Neurovascular intact. Full, normal range of motion. 15:46 Constitutional: The patient appears Confused, no acute distress 15:46 ENT: Dry mucous membranes. 15:46 ECG was reviewed by the Attending Physician. Vital Signs: 12:20 BP 137 / 70; Pulse 61; Resp 18; Temp 97.7(O); Pulse Ox 98% on R/A; rs5 13:30 BP 135 / 48; Pulse 61; Resp 19 S; Pulse Ox 99% on R/A; as6 14:33 BP 129 / 53; Pulse 107; Resp 16 S; Pulse Ox 97% on R/A; as6 15:32 BP 122 / 54; Pulse 73; Resp 18 S; Pulse Ox 100% on R/A; as6 16:10 BP 125 / 60; Pulse 76; Resp 18; Pulse Ox 99% on R/A; rs5 MDM: 12:27 Patient medically screened. rt 15:46 Differential Diagnosis Rhabdo, electrolyte disturbance, acute kidney failure. Data rt reviewed: vital signs, nurses notes, lab test result(s), EKG, radiologic studies. Consideration of Admission/Observation Patient was admitted/placed on observation. Management of patient was discussed with the following: Hospitalist: Agrees to admit. I considered the following discharge prescriptions or medication management in the emergency department Medications were administered in the Emergency Department. See MAR. Independent interpretation of the following test(s) in the Emergency Department CT Scan: My interpretation is No intracranial hemorrhage seen on my interpretation of CT scan images. Care significantly affected by the following chronic conditions: Hypertension. Counseling: I had a detailed discussion with the patient and/or guardian regarding the historical points, exam findings, and any diagnostic results supporting the discharge/admit diagnosis, lab results, the need for further work-up and treatment in the hospital. Response to treatment: There is no appreciated change of the patient's symptoms at this time. 06/09 12:33 Order name: Blood Culture Adult (2) rt 06/09 12:33 Order name: CBC with Diff; Complete Time: 14:05 rt 06/09 12:33 Order name: CMP; Complete Time: 13:43 rt 06/09 12:33 Order name: Lactate w/ 2H reflex if indic.; Complete Time: 13:43 rt 06/09 12:33 Order name: Protime (+inr); Complete Time: 13:43 rt 06/09 12:33 Order name: Ptt, Activated; Complete Time: 13:43 rt 06/09 12:33 Order name: Urinalysis w/ reflexes rt 06/09 12:33 Order name: Troponin High Sensitivity; Complete Time: 13:43 rt 06/09 12:33 Order name: CPK; Complete Time: 13:43 rt 06/09 13:00 Order name: CBC Smear Scan; Complete Time: 14:05 EDMS 06/09 15:16 Order name: Thyroid Stimulating Hormone; Complete Time: 17:08 EDMS 06/09 15:16 Order name: Urinalysis w/ reflexes EDMS 06/09 15:16 Order name: CBC with Automated Diff EDMS 06/09 15:16 Order name: CBC with Automated Diff EDMS 06/09 15:16 Order name: CBC with Automated Diff EDMS 06/09 15:16 Order name: CBC with Automated Diff EDMS 06/09 15:16 Order name: CBC with Automated Diff EDMS 06/09 15:16 Order name: Comprehensive Metabolic Panel EDMS 06/09 15:16 Order name: Comprehensive Metabolic Panel EDMS 06/09 15:16 Order name: Comprehensive Metabolic Panel EDMS 06/09 15:16 Order name: Comprehensive Metabolic Panel EDMS 06/09 15:16 Order name: Comprehensive Metabolic Panel EDMS 06/09 15:16 Order name: Creatine Phosphokinase EDMS 06/09 15:16 Order name: Creatine Phosphokinase EDMS 06/09 15:16 Order name: Creatine Phosphokinase EDMS 06/09 15:16 Order name: Creatine Phosphokinase EDMS 06/09 15:16 Order name: Lipid Profile EDMS 06/09 15:16 Order name: Lipid Profile EDMS 06/09 15:16 Order name: Magnesium EDMS 06/09 15:16 Order name: Magnesium EDMS 06/09 15:16 Order name: Magnesium EDMS 06/09 15:16 Order name: Magnesium EDMS 06/09 15:16 Order name: Magnesium EDMS 06/09 15:16 Order name: Phosphorus EDMS 06/09 15:16 Order name: Phosphorus EDMS 06/09 15:16 Order name: Phosphorus EDMS 06/09 15:16 Order name: Phosphorus EDMS 06/09 15:16 Order name: Phosphorus EDMS 06/09 15:22 Order name: PSA Screen; Complete Time: 17:08 EDMS 06/09 12:33 Order name: Chest Single View XRAY; Complete Time: 13:43 rt 06/09 12:33 Order name: Pelvis XRAY; Complete Time: 13:43 rt 06/09 12:33 Order name: CT Head C Spine; Complete Time: 13:43 rt 06/09 15:24 Order name: Renal Ultrasound-Complete EDMS 06/09 12:33 Order name: EKG; Complete Time: 12:34 rt 06/09 12:33 Order name: Accucheck; Complete Time: 14:08 rt 06/09 12:33 Order name: Cardiac monitoring; Complete Time: 14:33 rt 06/09 12:33 Order name: EKG - Nurse/Tech; Complete Time: 14:12 rt 06/09 12:33 Order name: IV Saline Lock - Large Bore; Complete Time: 13:35 rt 06/09 12:33 Order name: Labs collected and sent; Complete Time: 13:35 rt 06/09 12:33 Order name: O2 Per Protocol; Complete Time: 13:35 rt 06/09 12:33 Order name: O2 Sat Monitoring; Complete Time: 13:35 rt 06/09 12:33 Order name: Vital Signs; Complete Time: 13:35 rt EC:46 Rate is 75 beats/min. Rhythm is regular, Normal Sinus Rhythm with No ectopy, Peak T rt waves are present. QRS Bigelow is Normal. WA interval is normal. QRS interval is normal. QT interval is normal. No Q waves. T waves are Normal. No ST changes noted. Interpreted by me. Administered Medications: 14:19 Drug: NS 0.9% IV 1000 ml IV at 1 bolus Per protocol; 1000 mL bolus Route: IV; Rate: 1 rs5 bolus; Site: right forearm; 16:18 Follow up: Response: No adverse reaction; IV Status: Completed infusion; IV Intake: as6 1000ml Disposition Summary: 06/10/23 14:32 Hospitalization Ordered Notes: Hospitalization Status: Inpatient Admission rt Provider: Yenni Kim rt [facility] rt Condition: Serious rt Problem: new rt Symptoms: are unchanged rt Bed/Room Type: Standard rt Room Assignment: 421(06/10/23 15:32) bd Diagnosis - Acute kidney injury rt Forms: - Medication Reconciliation Form rt - SBAR form rt - Leadership Thank You Letter rt Critical care time excluding procedures: 15:46 Critical care time: Bedside Care: 30 minutes, Consultation: 5 minutes. Total time: 35 rt minutes Signatures: Dispatcher [employer] NORMAN Allan Adelaide bd Sparkle Celestin, BARMAID-C BARMAID-Csnw Ryan Montesinos MD MD rt Karan Merlos, RN RN rs5 Sushant Munoz RN as6 Corrections: (The following items were deleted from the chart) 12:34 12:34 BLOOD CULTURE*+BA.LAB.BRZ ordered. EDMS EDMS 12:34 12:34 CBC+H.LAB.BRZ ordered. EDMS EDMS 12:34 12:34 COMPREHENSIVE METABOLIC PANEL+C.LAB.BRZ ordered. EDMS EDMS 12:34 12:34 LACTATE+C.LAB.BRZ ordered. EDMS EDMS 12:34 12:34 PROTIME (+INR)+COAG.LAB.BRZ ordered. EDMS EDMS 12:34 12:34 PTT, ACTIVATED+COAG.LAB.BRZ ordered. EDMS EDMS 12:34 12:34 Urinalysis+U.LAB.BRZ ordered. EDMS EDMS 12:34 12:34 Troponin High Sensitivity+C.LAB.BRZ ordered. EDMS EDMS 12:34 12:34 CREATINE PHOSPHOKINASE+C.LAB.BRZ ordered. EDMS EDMS 15:32 14:32 rt bd 18:00 12:25 PMHx: None; rs5 rs5
--- NOTE | 2023-06-10 14:33 | ER ---
Nurse's Notes [facility] Name: Enzo Person Age: 82 yrs Sex: Male : 1940 Arrival Date: 06/10/2023 Time: 12:15 Bed 6 Private MD: Diagnosis: Acute kidney injury Presentation: 06/09 12:20 Chief complaint: EMS states: "PD called for wellness check in by neighbors who haven't rs5 seen him since Thursday. Is normally active, lives alone, and performs ADL independently. Pt found on the ground saturated in urine oriented to person only. Pt is now oriented x4". Coronavirus screen: At this time, the client does not indicate any symptoms associated with coronavirus-19. Ebola Screen: No symptoms or risks identified at this time. Initial Sepsis Screen: Does the patient meet any 2 criteria? No. Patient's initial sepsis screen is negative. Does the patient have a suspected source of infection? No. Patient's initial sepsis screen is negative. Risk Assessment: Do you want to hurt yourself or someone else? Patient reports no desire to harm self or others. Onset of symptoms was June 10, 2023. Care prior to arrival: IV initiated. 20 GA, in the right antecubital area. 12:20 Method Of Arrival: EMS: [facility] rs5 12:20 Acuity: HUMERA 3 rs5 Triage Assessment: 12:24 General: Appears in no apparent distress. uncomfortable, Behavior is calm, cooperative. rs5 Pain: Denies pain. Historical: - Allergies: 12:24 No Known Allergies; rs5 - PMHx: 12:25 Unable to Obtain; rs5 - Immunization history:: Adult Immunizations unknown. - Infectious Disease History:: Denies. - Social history:: Smoking status: Patient denies any tobacco usage or history of. - Family history:: not pertinent. Screenin:20 [facility] ED Fall Risk Assessment (Adult) History of falling in the last 3 months, rs5 including since admission Yes- single mechanical fall (1 pt) Confusion or Disorientation No (0 pts) Intoxicated or Sedated No (0 pts) Impaired Gait Yes (1 pt) Mobility Assist Device Used No (0 pt) Altered Elimination No (0 pt) Score/Fall Risk Level 0 - 2 = Low Risk Oriented to surroundings, Maintained a safe environment, Hourly rounding (assess needs \\T\\ fall precautionary measures) done. Abuse screen: Denies threats or abuse. Nutritional screening: No deficits noted. Tuberculosis screening: No symptoms or risk factors identified. Assessment: 12:20 General: Appears in no apparent distress. uncomfortable, Behavior is calm, cooperative. rs5 Pain: Denies pain. Neuro: Level of Consciousness is awake, alert, obeys commands, Oriented to person, place, time, situation. Cardiovascular: Patient's skin is warm and dry. Rhythm is regular. Respiratory: Airway is patent Respiratory effort is even, unlabored, Respiratory pattern is regular, symmetrical. GI: Abdomen is flat, non-distended, Abd is soft and non tender. : No signs and/or symptoms were reported regarding the genitourinary system. EENT: No signs and/or symptoms were reported regarding the EENT system. Derm: Skin is pink, warm \\T\\ dry. Wound noted left hip Wound is quarter sized wound noted to left hip, redness noted, no drainage or active bleeding present. 12:20 Musculoskeletal: Range of motion: intact in all extremities. rs5 16:19 General: attempted to call to notify that pt is on the way to room, no answer . as6 Vital Signs: 12:20 BP 137 / 70; Pulse 61; Resp 18; Temp 97.7(O); Pulse Ox 98% on R/A; rs5 13:30 BP 135 / 48; Pulse 61; Resp 19 S; Pulse Ox 99% on R/A; as6 14:33 BP 129 / 53; Pulse 107; Resp 16 S; Pulse Ox 97% on R/A; as6 15:32 BP 122 / 54; Pulse 73; Resp 18 S; Pulse Ox 100% on R/A; as6 16:10 BP 125 / 60; Pulse 76; Resp 18; Pulse Ox 99% on R/A; rs5 ED Course: 12:18 Patient arrived in ED. as6 12:20 Karan Merlos, LUL is Primary Nurse. rs5 12:20 Patient has correct armband on for positive identification. Placed in gown. Bed in low rs5 position. Call light in reach. Side rails up X2. 12:22 Ryan Montesinos MD is Attending Physician. rt 12:24 Triage completed. rs5 12:46 Initial lab(s) drawn, by me, sent to lab. Maintain EMS IV. Dressing intact. Good blood bc6 return noted. Site clean \\T\\ dry. IV Flushed right forearm with 5 ml normal saline. 12:47 CT Head C Spine In Process Unspecified. EDMS 12:48 CPK Sent. bc6 12:48 Troponin High Sensitivity Sent. bc6 13:03 Chest Single View XRAY In Process Unspecified. EDMS 13:03 Pelvis XRAY In Process Unspecified. EDMS 13:35 First set of blood cultures drawn by me. bc6 13:37 Inserted saline lock: 22 gauge in left antecubital area, using aseptic technique. Blood bc6 collected. 14:31 Yenni Kim MD is Hospitalizing Provider. rt 16:17 No provider procedures requiring assistance completed. Patient admitted, IV remains in as6 place. 16:17 Arm band placed on. as6 16:18 Provided Education on: need for admit. as6 Administered Medications: 14:19 Drug: NS 0.9% IV 1000 ml IV at 1 bolus Per protocol; 1000 mL bolus Route: IV; Rate: 1 rs5 bolus; Site: right forearm; 16:18 Follow up: Response: No adverse reaction; IV Status: Completed infusion; IV Intake: as6 1000ml Medication: 12:48 VIS not applicable for this client. rs5 Intake: 16:18 IV: 1000ml; Total: 1000ml. as6 Outcome: 14:32 Decision to Hospitalize by Provider. rt 16:17 Admitted to Tele accompanied by tech, family with patient, via stretcher, room 421, as6 with chart, 16:17 Condition: stable 16:17 Instructed on the need for admit, 16:18 Patient left the ED. as6 Signatures: Dispatcher [employer] Sushant Levi RN RN as6 Ryan Montesinos MD MD rt Karan Merlos RN RN rs5 Anahy Nam bc6 Corrections: (The following items were deleted from the chart) 18:00 12:25 PMHx: None; rs5 rs5
--- NOTE | 2023-06-10 15:52 | P.HP ---
Certification for Inpatient Patient admitted to: Inpatient With expected LOS: >2 Midnights Patient will require the following post-hospital care: Home Health Services Practitioner: I am a practitioner with admitting privileges, knowledge of patient current condition, hospital course, and medical plan of care. Services: Services provided to patient in accordance with Admission requirements found in Title 42 Section 412.3 of the Code of Federal Regulations <Sparkle Celestin - Last Filed: 06/10/23 17:28> Patient History Date of Service: 06/10/23 Reason for admission: ARF/ATN, Rhabdo History of Present Illness: Mr. Izaguirre is an 82-year-old male with a past medical history of hypothyroidism and an enlarged prostate status post TURP. He lives alone and is said to be stubborn per his family. He tells me he did not fall but chose to lie on the floor on Thursday evening and did not feel like getting up. However, he is noted to have a discoloration to his left forehead, a stage II pressure sore to his left iliac crest, and an abrasion to his left lateral knee. Apparently his neighbor noted he was not outdoors and did a welfare check. He was brought to the ED very dehydrated, debilitated, but not confused. On assessment in the emergency department, not surprisingly, he was found to be in acute renal failure with rhabdo. CBC with a WBC of 9.61 with neutrophils of 90.7%, H/H of 11.4/34.7, platelets 216. Chemistry significant for a sodium of 146, potassium 5.1, chloride 113, bicarb 16, glucose 116, BUN 177, and creatinine 6.86 with a GFR of 7. Imaging with chest x-ray shows no acute cardiopulmonary process, CT head and C-spine show no acute traumatic intracranial or cervical spine findings, and x-ray of the pelvis shows no acute osseous abnormality of the bony pelvis with mild bilateral hip joint degenerative changes. On review of his records, a renal ultrasound was found from 08/13/2020 with the impression reading "right greater than left renal pelvic dilatation far less prominent than the hydronephrosis seen July 2019. Enlarged lobulated prostate gland projecting into the bladder base. This does not appear substantially different from July 2019. This could be benign prostatic hypertrophy or malignancy of the prostate gland. This does appear to be prostate in origin rather than a bladder base mass. Correlation can be made with PSA values or any prior cystoscopy or consult". Mr. Izaguirre says that he had a TURP to relieve the symptoms. A PSA was sent on admission = 1.38. Renal ultrasound was ordered, and a Shell will be placed. I also sent a TSH and note that Mr. Izaguirre is supratherapeutic at 0.112, will hold Levothyroxine. 1 L NS bolus was completed in the emergency department. We will admit Mr. Izaguirre for further investigation and treatment. Home medications list reviewed: Yes (levothyroxine 88mcg and ASA 325po BID (because it makes him feel better)) - Past Medical/Surgical History Has patient received pneumonia vaccine in the past: No Diabetic: No -: hypothyroidism -: BPH with TURP -: TURP Psychosocial/ Personal History: Lives alone. He states he likes to lie on the floor. Daughter and ex- at bedside. - Family History Family History: Reviewed- Non-Contributory - Social History Smoking Status: Never smoker Alcohol use: No CD- Drugs: No Caffeine use: Yes Place of Residence: Home <Sparkle Celestin - Last Filed: 06/10/23 17:28> Date of Service: 06/10/23 <Yenni Kim - Last Filed: 06/10/23 17:44> Review of Systems 10-point ROS is otherwise unremarkable General: As per HPI Musculoskeletal: As per HPI Integumentary: As per HPI Neurological: As per HPI <Sparkle Celestin - Last Filed: 06/10/23 17:28> Physical Examination - Physical Exam General: Alert, In no apparent distress, Oriented x3, Cachectic, Other (pallor) HEENT: Other (mucous membranes thoroughly dry) Neck: JVD not distended Respiratory: Normal air movement Cardiovascular: Normal pulses, Regular rate/rhythm Capillary refill: <2 Seconds Gastrointestinal: Soft and benign Musculoskeletal: No clubbing, No swelling Integumentary: Pressure ulcer (left forehead with discoloration, left iliac crest with stage two blistered and broken skin, left lateral knee with a small abrasion, right lateral elbow with oval bruise) Neurological: Normal speech, Normal tone Lymphatics: No axilla or inguinal lymphadenopathy External genitalia: Deferred Rectal: Deferred - Studies Laboratory Data (last 24 hrs) 06/10/23 06/10/23 06/10/23 12:45 12:45 12:45 WBC 9.60 Hgb 11.4 L Hct 34.7 L Plt Count 216 PT 12.1 INR 1.10 APTT 24.3 Sodium 146 H Potassium 5.1 BUN 177 H Creatinine 6.86 H Glucose 116 H Total Bilirubin 0.6 AST 28 ALT 28 Alkaline Phosphatase 49 <Sparkle Celetsin - Last Filed: 06/10/23 17:28> - Studies Laboratory Data (last 24 hrs) 06/10/23 06/10/23 06/10/23 12:45 12:45 12:45 WBC 9.60 Hgb 11.4 L Hct 34.7 L Plt Count 216 PT 12.1 INR 1.10 APTT 24.3 Sodium 146 H Potassium 5.1 BUN 177 H Creatinine 6.86 H Glucose 116 H Total Bilirubin 0.6 AST 28 ALT 28 Alkaline Phosphatase 49 <JudyAbdoulroshan Laughlin - Last Filed: 06/10/23 17:44> Assessment and Plan - Plan ARF/ATN Hydration, given 1L NS in ED, will give D51/2NS at 100ml/hr strict I&O Shell daily weight Monitor renal function consult nephrology Electrolyte derangement Monitor and replete Supratherapeutic thyroid medication Hold Levothyroxine Pressure sores Wound care Mupirocin air mattress skin protection measures offloading Consult licensed social worker/PT for evaluation DVT/GI prophylaxis Heparin/protonix - Advance Directives Does patient have a Living Will: No Does patient have a Durable POA for Healthcare: No <Sparkle Celestin - Last Filed: 06/10/23 17:28> - Plan Pt seen and examined. I agree with the note by the RESCUE WORKER. Pt is an 82 yo female with past medical history of ESRD and Htn who presents with s/p fall at home. Pt denies fall but he found himself on the floor but could not get up. His neihbors noticed that his light was on and they called the Police to check onhim. The police found him on the floor. No one knows how long he was on the floor. On admission, lab studies show Wbc 9.6, Hgb 11.4, K 5.1, Cr 6.86, glucose 116, lactate 1.4, CK 928, troponin 75.9 At bedside, pt is in NAD. A/P: Fall: Likely mechanical. Will continue fall precaution. Check vitamin D level. Hyperkalemia: k is 5.1. Due to renal failure. Will monitor. Hypernatremia: Na is 146. Will continue 11/2NS. likely due to volume depletion. Rhabdomyolysis: CK is 928. Will continue IVF and trend CK (928) DWIGHT: Cr is 6.86. Will continue IVF, avoid nephrotoxins and monitor renal function. Htn: Continue home meds. Code: full <Yenni Kim - Last Filed: 06/10/23 17:44>
[2023-06-10] MEDS: CALCIUM CARBONATE CHEW 500MG TAB PO ONE (15:54)
[2023-06-10] MEDS: D5 0.45 NS 1,000 ML IV SCH (18:05)
[2023-06-10] MEDS: HEPARIN 5000 UNIT/ML 1 ML VIAL SQ SCH (18:05)
[2023-06-10] MEDS: WATER FOR INJ,STERILE 10 ML IM PRN (18:59)
[2023-06-10] MEDS: ZIPRASIDONE MESYLA 20 MG/VIAL IM STA (19:00)
[2023-06-11 04:22] LABS: Absolute Lymphocytes (CBC) 0.4 K/uL (0.7-4.9); Absolute Monocytes 0.7 K/uL (0.1-1.3); Absolute Neutrophil 8.5 K/uL (1.8-8.0); Basophils % 0.4 % (0-1.3); Eosinophils % 0.1 % (0-4.4); Hematocrit 31.7 % (39.6-49.0); Hemoglobin 10.4 g/dL (13.6-17.9); Lymphocytes % 3.7 % (15.3-44.8); MCH 31.7 pg (27.0-35.0); MCHC 32.8 g/dL (32.0-36.0); MCV 96.7 fL (80-100); MPV 9.9 fL (7.6-11.3); Monocytes % 7.7 % (3.3-12.3); Nucleated Red Blood Cells % 0.1 % (0-0); Platelets 206 thou/uL (152-406); RBC Red Blood Cell Count 3.28 M/uL (4.33-5.43)
[2023-06-11 04:44] LABS: Neutrophils % 88.1 % (41.7-73.7)
[2023-06-11 05:09] LABS: Albumin 2.6 g/dL (3.4-5.0); Albumin/Globulin Ratio 0.7 (1.1-1.8); Anion Gap 15.2 mEq/L (5.0-15.0); Bilirubin Total 0.5 mg/dL (0.2-1.0); Globulin 3.6 g/dL (2.3-3.5); Magnesium 3.4 mg/dL (1.6-2.4); Phosphorus 4.9 mg/dL (2.5-4.9); Potassium 4.2 mEq/L (3.5-5.1); Protein, Total 6.2 g/dL (6.4-8.2)
[2023-06-11] MEDS: PIPER TAZO 3.375 GM in NA CHLORIDE 0.9% 100 ML IV SCH (06:25)
[2023-06-11] MEDS: NACHLORIDE 0.45% 1,000 ML IV SCH (08:00)
--- NOTE | 2023-06-11 08:09 | RAD REPORT ---
EXAM DESCRIPTION: US - Renal Ultrasound-Complete - 06/11/2023 5:27 am CLINICAL HISTORY: ARF/ATN COMPARISON: Renal Ultrasound-Complete dated 08/13/2020 FINDINGS: Kidney parenchyma bilaterally appears mildly echogenic. The right kidney measures 11.4 x 6.5 x 7.2 cm. Severe right-sided hydronephrosis The left kidney measures 12.0 x 6.6 x 5.8 cm. Moderate to severe left-sided hydronephrosis. Moderate degree is seen within the urinary bladder. Prostate gland appears enlarged. IMPRESSION: Moderately severe bilateral hydronephrosis, greater on the right. Bladder distention containing debris. Prostate enlargement also noted. Chronic bladder outlet obstruc tion is a possibility.
[2023-06-11] MEDS ORDERED: PIPER TAZO 3.375 GM in NA CHLORIDE 0.9% 100 ML IV SCH (09:00)
[2023-06-11] MEDS: CEFTRIAXONE 2,000 MG in NA CHLORIDE 0.9% 100 ML IV SCH (10:36)
--- NOTE | 2023-06-11 12:25 | P.PN ---
Subjective Date of Service: 06/11/23 Chief Complaint: ARF/ATN, Rhabdo Pt is resting comfortably in bed. He is getting iv abx and wound care. Will trend CK and renal function. No other complaints. Review of Systems General: Unremarkable Eyes: Unremarkable ENT: Unremarkable Respiratory: Unremarkable Cardiovascular: Unremarkable Gastrointestinal: Unremarkable Genitourinary: Unremarkable Musculoskeletal: Unremarkable Integumentary: Unremarkable Neurological: Unremarkable Lymphatics: Unremarkable Physical Examination - Vital Signs Temperature: 98.7 F Blood Pressure: 158/74 Pulse: 89 Respirations: 17 Pulse Ox (%): 96 - Physical Exam General: Alert, In no apparent distress, Oriented x3 HEENT: Atraumatic, Normocephalic, PERRLA Neck: Supple, 2+ carotid pulse no bruit Respiratory: Clear to auscultation bilaterally, Normal air movement Cardiovascular: No edema, Normal pulses, Regular rate/rhythm, Normal S1 S2 Capillary refill: <2 Seconds Gastrointestinal: Normal bowel sounds, Soft and benign, Non-distended Musculoskeletal: No clubbing, No swelling Integumentary: No rashes, No breakdown Neurological: Normal speech, Normal strength at 5/5 x4 extr, Normal tone Lymphatics: No axilla or inguinal lymphadenopathy - Studies Laboratory Data (last 24 hrs) 06/10/23 06/10/23 06/10/23 12:45 12:45 12:45 WBC 9.60 Hgb 11.4 L Hct 34.7 L Plt Count 216 PT 12.1 INR 1.10 APTT 24.3 Sodium 146 H Potassium 5.1 BUN 177 H Creatinine 6.86 H Glucose 116 H Total Bilirubin 0.6 AST 28 ALT 28 Alkaline Phosphatase 49 Assessment And Plan - Plan Fall: Likely mechanical. Will continue fall precaution. Check vitamin D level. Hyperkalemia: k is 5.1. Due to renal failure. Will monitor. Hypernatremia: Na is 147<- 146. Will continue 1/2NS. likely due to volume depletion. Rhabdomyolysis: CK is 886<- 928. Will continue IVF and trend CK (886 <- 928) DWIGHT: Cr is 6.28<- 6.86. Will continue IVF, avoid nephrotoxins and monitor renal function. Bacteremia: Blood cx is growing gram negative rods. Will continue rocephin 2gm iv daily. F/u blood cx. Sacral wound: Will continue abx and wound care. Htn: Continue home meds. Code: full
--- NOTE | 2023-06-11 17:07 | RAD REPORT ---
EXAM DESCRIPTION: CT - Abdomen Pelvis Wo Contrast - 06/11/2023 4:30 pm CLINICAL HISTORY: Hydronephrosis COMPARISON: No comparisons TECHNIQUE: Thin cut axial CT imaging of the abdomen and pelvis was performed without IV contrast. Mu ltiplanar reformats were generated and reviewed. All CT scans are performed using dose optimization technique as appropriate and may include automated exposure control or mA/KV adjustment according to patient size. FINDINGS: Small bilateral layering pleural effusions and underlying subsegmental atelectasis. The liver shows a centrally located 1.9 cm fluid density lesion suggestive of a cyst. Adrenal glands, spleen, and pancreas show no suspicious findings. Gallbladder and biliary tree are also without susp icious finding. Bilateral severe hydroureteronephrosis with renal cortical thinning. Ovoid left superior pole exophyt ic cortical 2.1 cm cyst with wall calcifications. No radiopaque calculi. . No dilated bowel loops or bowel wall thickening. No free air, free fluid or inflammatory stranding. N o hernia, mass or bulky lymphadenopathy. Marked prostatomegaly. Urinary bladder is suboptimally diste nded with Shell catheter in place. No suspicious bony findings. IMPRESSION: Severe bilateral hydroureteronephrosis with no evidence of obstructing calculi. Findings may relate to strictures at the level of the vesicoureteral junction or longstanding retrograde refl ux. Marked prostatomegaly. Incidental findings as above.
[2023-06-11 18:04] LABS: Specific Gravity 1.005 (1.005-1.030); Sqamous Epithelial None Seen /HPF (None Seen); Urine Bacteria 20-50 /HPF (<20); Urine Bilirubin NEGATIVE (Negative); Urine Blood 3+ (OVER) (Negative); Urine Clarity Extremely Turbid (Clear); Urine Color Dark-Brown (Yellow); Urine Crystals Unidentified Moderate /HPF (None Seen); Urine Culture Reflex Order REFLEXED; Urine Glucose NEGATIVE (Negative); Urine Ketones NEGATIVE (Negative); Urine Microscopic Reflex YN ORDER UMIC; Urine Nitrite NEGATIVE (Negative); Urine Protein 2+ (Negative); Urine RBC 21-50 /HPF (None Seen); Urine Urobilinogen Normal (Normal); Urine WBC >50 /HPF (<5); Urine WBC Clump Many /HPF (None Seen)
[2023-06-11] MEDS: D5W 1,000 ML with NA BICARB 8.4% 100 MEQ IV SCH (18:12)
[2023-06-11 18:13] LABS: UR PROTEIN 591.9 mg/dL (<11.9); Urine Protein/Creatinine Ratio 11.84 ratio (<0.15)
--- NOTE | 2023-06-11 19:49 | CON ---
Date of Consultation: 06/11/2023 Reason For Consultation: Elevated BUN and creatinine, acidosis. History Of Present Illness: This is a pleasant 82-year-old female with significant past medical history of hypertension, hypothyroidism, the patient lives alone. The patient had a fall and found to the floor for the last 3 days, confused, found to have elevation in BUN and creatinine with acidosis. For that reason, we have been consulted. Creatinine was 6.8 with GFR of 7. The patient is still making urine. The patient also found to have a marginal elevation on CK. Past Medical History: Includes: 1. Hypothyroidism. 2. Benign prostate hypertrophy. Past Surgical History: Include TURP. Family History: Positive for hypertension. Social History: Denied smoking. Denied drinking. Denied drugs abuse. Review of Systems: Head and Neck: Has no headache. GI: No nausea. No vomiting. : No polyuria. No dysuria. No hematuria. Sharepoint Web Developer: Not applicable. Respiratory: No shortness of breath. Cardiovascular: No chest pain. Endocrine: No polydipsia. Skin: No rash. Neuro: Has fall. Musculoskeletal: Generalized fatigue, body ache. Physical Examination: Vital Signs: When I saw the patient, blood pressure 158/74, pulse of 89, afebrile. Chest: Clear to auscultation. Heart: S1, S2 regular. Abdomen: Soft, nontender. Extremity: No edema. Neurologic: Alert, oriented. No tremor. No nausea. Lab Data: Back in 2019, creatinine 1.1 upon admission sodium 146, potassium 5.1, bicarb 16, BUN 177, creatinine 6.8, calcium of 8. Today lab data; sodium 147, potassium 4.2, bicarb 17, BUN 171, creatinine 6.2, calcium of 7.8. CK of 886. TSH is 0.1. Renal ultrasound .05/28 hydronephrosis, greater on the right with possible obstruction. Assessment And Plan: Acute kidney injury multifactorial secondary to rhabdo, complicated with acidosis and hyperkalemia, nonoliguric and no uremic symptoms. 1. I am going to go ahead and insert Shell. 2. We will start the patient on bicarb drip and hydration and we will follow up if kidney function did not improve. The patient may need to have renal replacement therapy, but I doubt. 3. Acidosis, non-anion gap metabolic acidosis secondary to obstructive uropathy and renal failure. I am going to start the patient on bicarb drip. 4. Hypernatremia secondary to dehydration. We will start hydration. 5. Hyperkalemia, resolved. 6. Obstructive uropathy. We will start Shell. We will start hydration. Patient will get CT abdomen and pelvis noncontrast. The patient may need urology evaluation. We will start the patient on Flomax. Thank you Dr. Kim for allowing us to participate in the care of your patient. Time spent examining the patient [id number], reviewing data, lab and radiology, placing order, discussing the case with the patient, discussing the case with the valve steamer including hospitalist and nursing staff with the dialysis nurse more than 75 minutes EMORY Voice ID: [id number] Report ID: [id number] MTDD
[2023-06-11] MEDS: TAMSULOSIN 0.4 MG SR CAP PO SCH (20:35)
[2023-06-11] MEDS: JUVEN PACKET PO SCH (20:37)
[2023-06-11] MEDS: ENSURE ENLIVE 237 ML CAN PO SCH (20:37)
[2023-06-12 07:13] LABS: Absolute Lymphocytes (CBC) 0.6 K/uL (0.7-4.9); Absolute Monocytes 0.8 K/uL (0.1-1.3); Absolute Neutrophil 6.6 K/uL (1.8-8.0); Basophils % 0.2 % (0-1.3); Eosinophils % 0.2 % (0-4.4); Hematocrit 28.7 % (39.6-49.0); Hemoglobin 9.6 g/dL (13.6-17.9); Lymphocytes % 7.2 % (15.3-44.8); MCHC 33.3 g/dL (32.0-36.0); MCV 96.1 fL (80-100); Monocytes % 9.5 % (3.3-12.3); Neutrophils % 82.9 % (41.7-73.7); Percent Reticulocyte Count 0.37 % (0.4-2.05); Platelets 194 thou/uL (152-406); RBC Red Blood Cell Count 2.98 M/uL (4.33-5.43); Red Cell Distribution Width 13.6 % (12.1-15.2)
[2023-06-12 08:00] LABS: Albumin 2.3 g/dL (3.4-5.0); Albumin/Globulin Ratio 0.7 (1.1-1.8); Anion Gap 11.3 mEq/L (5.0-15.0); Bilirubin Total 0.4 mg/dL (0.2-1.0); Ferritin 270.9 ng/mL (26-388); Globulin 3.3 g/dL (2.3-3.5); Magnesium 2.8 mg/dL (1.6-2.4); Potassium 3.3 mEq/L (3.5-5.1); Protein, Total 5.6 g/dL (6.4-8.2); Thyroid Stimulating Hormone 0.357 uIU/mL (0.358-3.740)
[2023-06-12 11:59] LABS: Rheumatoid Factor NEG (NEG)
[2023-06-12] MEDS: MEDIHONEY 44 ML TOPICAL TUBE TOP SCH (12:14)
--- NOTE | 2023-06-12 12:31 | P.PN ---
Subjective Date of Service: 06/12/23 Chief Complaint: ARF/ATN, Rhabdo Pt is resting comfortably in bed. He is getting iv abx, ivf, and wound care. CK is trending down 292 <- 886 <- 982. No other complaints. Review of Systems General: Unremarkable Eyes: Unremarkable ENT: Unremarkable Respiratory: Unremarkable Cardiovascular: Unremarkable Gastrointestinal: Unremarkable Genitourinary: Unremarkable Musculoskeletal: Unremarkable Integumentary: Lesions Neurological: Unremarkable Lymphatics: Unremarkable Physical Examination - Vital Signs Temperature: 98.9 F Blood Pressure: 136/63 Pulse: 74 Respirations: 17 Pulse Ox (%): 98 - Physical Exam General: Alert, In no apparent distress, Oriented x3 HEENT: Atraumatic, Normocephalic, PERRLA Neck: Supple, 2+ carotid pulse no bruit Respiratory: Clear to auscultation bilaterally, Normal air movement Cardiovascular: No edema, Normal pulses, Regular rate/rhythm, Normal S1 S2 Capillary refill: <2 Seconds Gastrointestinal: Normal bowel sounds, Soft and benign, Non-distended Musculoskeletal: No clubbing, No swelling Integumentary: No rashes, No breakdown Neurological: Normal gait, Normal speech Lymphatics: No axilla or inguinal lymphadenopathy Assessment And Plan - Plan Fall: Likely mechanical. Will continue fall precaution. Check vitamin D level. Hyperkalemia: resolved. k is 3.3<- 5.1. Due to renal failure. Will monitor. Hypokalemia: K is 3.3. Will replete and monitor. Hypernatremia: Na is 144<- 147<- 146. Will continue 1/2NS. likely due to volume depletion. Rhabdomyolysis: CK is 292<- 886<- 928. Will continue IVF and trend CK (292<- 886 <- 928) DWIGHT: Cr is 5.36-6.28<- 6.86. Will continue IVF, avoid nephrotoxins and monitor renal function. Bacteremia: Blood cx is growing gram negative rods. Will continue rocephin 2gm iv daily. F/u blood cx. Sacral wound: Will continue abx and wound care. Htn: Continue home meds. Code: full Dispo: APS is involved. Pt will dc to SNF.
[2023-06-12] MEDS: D5W 1,000 ML with NA BICARB 8.4% 50 MEQ IV SCH (15:50)
[2023-06-12] MEDS: POTASSIUM CL SA 10 MEQ TAB PO ONE (16:11)
[2023-06-12] MEDS: ACETAMINOPHEN 325 MG TABLET PO PRN (17:39)
--- NOTE | 2023-06-13 03:09 | PN ---
Date of Progress Note: 06/12/2023 Subjective: No overnight events. BUN and creatinine are slowly improving, though his BUN is still e levated. Sodium is trending up. I will reduce his IV fluid rate and bicarbonate . Objective: Vital Signs: Temperature 98.9, pulse rate 74, blood pressure 156/63. General: Awake and alert, not in distress. Neck: Supple. No elevated JVD. Heart: Regular rate and rhythm. Normal S1, S2. Chest: Clear to auscultation bilaterally. No rales or wheezes. Abdomen: Soft, nontender. : Has a Shell catheter. Extremities: No edema. Laboratory Data: White count 7.9, hemoglobin 9.6. Sodium 144, potassium 3.3, bicarb 24, BUN 148, cr eatinine 5.3. Assessment And Plan: 1.Acute kidney injury due to prolonged obstructive uropathy. BUN and creatinine are slowly improvin g. No acute indication for renal replacement therapy at this time. We will reduce the rate of the I V fluid, renal dose medication. 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 The patient recently had a TURP surgery. Continue Shell , we will add Flomax. 3.Hypokalemia. Replace as needed. 4.Metabolic acidosis due to acute kidney injury. We will reduce the rate of the . 5.Hypernatremia due to poor oral intake and saline. We will adjust the fluid as above. Diet, incre ase fluid intake as tolerated. 6.Bacteremia. Continue antibiotic. 7.Sacral decubitus wound. Continue antibiotics and wound care. Thank you for allowing me to participate in patient care. Total time spent 55 minutes including documentation, reviewing labs, and discussing with the patient and medical staff. LISA/KD Voice ID: [id number] Report ID: [id number]
[2023-06-13] MEDS: LEVOTHYROXINE SOD 0.088 MG TAB PO SCH (05:37)
[2023-06-13 06:16] LABS: Absolute Eosinophils 0.2 K/uL (0-0.5); Absolute Lymphocytes (CBC) 0.8 K/uL (0.7-4.9); Absolute Monocytes 0.8 K/uL (0.1-1.3); Absolute Neutrophil 6.1 K/uL (1.8-8.0); Basophils % 0.2 % (0-1.3); Eosinophils % 2.6 % (0-4.4); Hematocrit 27.7 % (39.6-49.0); Hemoglobin 9.2 g/dL (13.6-17.9); Lymphocytes % 10.1 % (15.3-44.8); MCH 31.9 pg (27.0-35.0); MCHC 33.1 g/dL (32.0-36.0); MCV 96.2 fL (80-100); MPV 10.3 fL (7.6-11.3); Monocytes % 10.7 % (3.3-12.3); Neutrophils % 76.4 % (41.7-73.7); Platelets 196 thou/uL (152-406); RBC Red Blood Cell Count 2.88 M/uL (4.33-5.43); Red Cell Distribution Width 13.9 % (12.1-15.2)
[2023-06-13 06:38] LABS: Albumin 2.1 g/dL (3.4-5.0); Albumin/Globulin Ratio 0.6 (1.1-1.8); Anion Gap 7.6 mEq/L (5.0-15.0); Bilirubin Total 0.4 mg/dL (0.2-1.0); Globulin 3.3 g/dL (2.3-3.5); Magnesium 2.4 mg/dL (1.6-2.4); Potassium 3.6 mEq/L (3.5-5.1); Protein, Total 5.4 g/dL (6.4-8.2)
[2023-06-13] MEDS: POTASSIUM CL SA 10 MEQ TAB PO ONE (07:48)
[2023-06-13] MEDS: POTASS/SODIUM PHOSPHATE 1 PKT POWD.PACK PO SCH (07:49)
--- NOTE | 2023-06-13 09:32 | P.PN ---
Subjective Date of Service: 06/13/23 Chief Complaint: ARF/ATN, Rhabdo Subjective: No C/O voiced (not eating well. Will take Louie and is asking for additional Ensure. K/Phos replacement protocol this am) <Sparkle Celestin - Last Filed: 06/13/23 09:24> Date of Service: 06/13/23 <JudySheylaangelic C - Last Filed: 06/13/23 13:20> Review of Systems 10-point ROS is otherwise unremarkable General: Weakness, As per HPI Genitourinary: As per HPI Integumentary: As per HPI Neurological: As per HPI <Sparkle Celestin - Last Filed: 06/13/23 09:24> Physical Examination - Vital Signs Temperature: 98.5 F Blood Pressure: 116/56 Pulse: 81 Respirations: 18 Pulse Ox (%): 96 - Physical Exam General: Alert, In no apparent distress, Oriented x3 HEENT: Normocephalic Neck: Supple Respiratory: Normal air movement Cardiovascular: Regular rate/rhythm Capillary refill: <2 Seconds Gastrointestinal: Soft and benign Musculoskeletal: No clubbing, No swelling Integumentary: Other (generalized pallor. left iliac crest wound with wound care, left lateral knee with healing abrasion) Neurological: Normal speech, Normal affect, Abnormal tone Lymphatics: No axilla or inguinal lymphadenopathy Urinary: Shell catheter (clear yellow, 900 ml output overnight) External genitalia: Deferred Rectal: Deferred - Studies Microbiology Data (last 24 hrs): 06/10/23 13:50 Blood - Blood Aerobic Blood Culture - Final Klebsiella Ozaenae 06/10/23 13:50 Blood - Blood Blood Culture Gram Stain - Final 06/10/23 13:50 Blood - Blood Anaerobic Blood Culture - Final Klebsiella Ozaenae 06/10/23 13:50 Blood - Blood Gram Stain - Final 06/10/23 13:35 Blood - Blood Aerobic Blood Culture - Final Klebsiella Ozaenae 06/10/23 13:35 Blood - Blood Blood Culture Gram Stain - Final 06/10/23 13:35 Blood - Blood Anaerobic Blood Culture - Final Klebsiella Ozaenae 06/10/23 13:35 Blood - Blood Gram Stain - Final <Sparkle Celestin - Last Filed: 06/13/23 09:24> - Studies Microbiology Data (last 24 hrs): 06/10/23 13:50 Blood - Blood Aerobic Blood Culture - Final Klebsiella Ozaenae 06/10/23 13:50 Blood - Blood Blood Culture Gram Stain - Final 06/10/23 13:50 Blood - Blood Anaerobic Blood Culture - Final Klebsiella Ozaenae 06/10/23 13:50 Blood - Blood Gram Stain - Final 06/10/23 13:35 Blood - Blood Aerobic Blood Culture - Final Klebsiella Ozaenae 06/10/23 13:35 Blood - Blood Blood Culture Gram Stain - Final 06/10/23 13:35 Blood - Blood Anaerobic Blood Culture - Final Klebsiella Ozaenae 06/10/23 13:35 Blood - Blood Gram Stain - Final <Yenni Kim - Last Filed: 06/13/23 13:20> Assessment And Plan - Plan ARF/ATN with post obstructive BPH, rhabdo, and UTI Hydration, given 1L NS in ED, will give D51/2NS at 100ml/hr, hypernatremia persisted. D5W with 150 NaHCO3 begun per Nephrology hospital day 2 strict I&O Shell daily weight Monitor renal function nephrology following Shell with clear yellow urine x 900ml overnight Sepsis: 06/10 Rocephin 2gm IVPB daily s/p +blood cultures 06/11 urine with 4+ gram negative rods 06/12 Blood cultures + Klebsiella Ozaenae, susceptible to Rocephin. Urine still preliminary Electrolyte derangement Monitor and replete calorie deficit - Louie and Ensure 06/12 asking for additional Ensure and taking Louie but not wanting regular diet yet Supratherapeutic thyroid medication Hold Levothyroxine 06/12 - repeat TSH in am tomorrow Pressure sores Wound care Mupirocin air mattress skin protection measures offloading Consult licensed social worker/PT for evaluation 06/12 - awaiting placement DVT/GI prophylaxis Heparin/protonix <Sparkle Celestin - Last Filed: 06/13/23 09:24> - Plan Pt seen and examined. I agree withe the note by the DIRECTOR EXECUTIVE COMMUNICATIONS. Blood and Urine cultures are growing Klebsiella Ozaenae. Will continue rocephin 2gm iv daily. Pt is waiting for placement. <Yenni Kim - Last Filed: 06/13/23 13:20>
[2023-06-13] MEDS: KCL 20 MEQ/100 mL IVPB 20 MEQ/100 ML BAG IV SCH (12:40)
[2023-06-13] MEDS: EPOETIN ALFA-EPBX 4,000 UNIT/ML VIAL SQ SCH (13:00)
--- NOTE | 2023-06-13 14:12 | PN ---
Date of Progress Note: 06/13/2023 Subjective: The patient was admitted to the hospital with acute kidney injury secondary to obstructive uropathy, dehydration, and rhabdomyolysis. The patient was started on aggressive hydration. Shell was inserted. Kidney function is slowly improving. The patient did not require any renal replacement therapy as patient did not show any uremic symptoms and as I mentioned, kidney function started improving. Physical Examination: Vital Signs: Blood pressure 116/56, pulse of 81, afebrile. The patient had good urine output of 3400, positive of 1600. Chest: Clear to auscultation. Heart: S1, S2. Regular. Abdomen: Soft, nontender. Extremities: No edema. Neurologic: Alert. No focality, no tremor. Laboratory Data: WBC 7.9, hemoglobin 9.2. Sodium 140; potassium 3.6; bicarb 29; BUN 127, trending down from 177; creatinine 4.6, trending down from 6.8. GFR 12, trending up from 7. Calcium 7.4. Phosphorus 2 and magnesium of 2.4. Iron saturation of 34. Albumin 2.1. Corrected calcium is 9. Serum protein electrophoresis is still pending. PTH 193. TSH 0.3. PC ratio is 11. Serology is still pending. Assessment And Plan: 1. Acute kidney injury secondary to obstructive uropathy, rhabdomyolysis, and dehydration. Nonoliguric. No hyperkalemia or acidosis. Again, I do not see the need to initiate any renal replacement therapy. I am going to continue hydration given the presence of nephrotic range of proteinuria. I am going to go ahead and follow up full serology including serum protein electrophoresis. 2. Nephrotic range of proteinuria. Serology is pending. Serum protein electrophoresis is pending. We will follow up. 3. Obstructive uropathy, status post transurethral resection of the prostate. Continue Flomax. Continue Shell. Consider evaluation. 4. Hypokalemia, hypophosphatemia with current kidney function. I am going to be reluctant to replace his phosphorus. I am going to replace the potassium cautiously. 5. Anemia of chronic kidney disease with the presence of acute kidney injury and the nephrotic range of proteinuria. We will follow up serum protein electrophoresis. I am going to give the patient a single dose of Retacrit and we will follow up the patient. 6. Hyperkalemia, resolved. 7. Hypernatremia secondary to depletional, resolved. Time spent examining the patient [id number], reviewing data, lab and radiology, placing order, discussing the case with the patient, discussing the case with the cylinder steamer including hospitalist and nursing staff with the dialysis nurse more than 35 minutes EMORY Voice ID: [id number] Report ID: [id number]
[2023-06-13] MEDS: Mupirocin NASAL 2 APPL/1 GM TUBE NAS SCH (21:00)
--- NOTE | 2023-06-13 21:25 | RAD REPORT ---
EXAM DESCRIPTION: RAD - Chest Single View - 06/13/2023 9:17 pm CLINICAL HISTORY: picc placement Chest pain. COMPARISON: <Comparisons> FINDINGS: Portable technique limits examination quality. The lungs are grossly clear. The heart is normal in size. Right-sided PICC line has tip in the SVC.
[2023-06-14 06:50] LABS: Albumin 2.1 g/dL (3.4-5.0); Albumin/Globulin Ratio 0.6 (1.1-1.8); Bilirubin Total 0.3 mg/dL (0.2-1.0); Globulin 3.5 g/dL (2.3-3.5); Protein, Total 5.6 g/dL (6.4-8.2)
[2023-06-14 06:56] LABS: Absolute Eosinophils 0.1 K/uL (0-0.5); Absolute Lymphocytes (CBC) 0.9 K/uL (0.7-4.9); Absolute Monocytes 0.9 K/uL (0.1-1.3); Absolute Neutrophil 6.1 K/uL (1.8-8.0); Basophils % 0.2 % (0-1.3); Eosinophils % 1.1 % (0-4.4); Hematocrit 27.9 % (39.6-49.0); Hemoglobin 9.4 g/dL (13.6-17.9); Lymphocytes % 11.1 % (15.3-44.8); MCH 32.5 pg (27.0-35.0); MCHC 33.9 g/dL (32.0-36.0); MPV 10.1 fL (7.6-11.3); Monocytes % 11.4 % (3.3-12.3); Neutrophils % 76.2 % (41.7-73.7); Nucleated Red Blood Cells % 0.1 % (0-0); Platelets 247 thou/uL (152-406); Red Cell Distribution Width 13.8 % (12.1-15.2)
--- NOTE | 2023-06-14 10:43 | P.PN ---
Subjective Date of Service: 06/14/23 Chief Complaint: ARF/ATN, Rhabdo Subjective: No new changes, Improving <Sparkle Celestin - Last Filed: 06/14/23 12:18> Date of Service: 06/25/23 <Yenni Kim Qian - Last Filed: 06/25/23 16:23> Review of Systems 10-point ROS is otherwise unremarkable General: As per HPI Genitourinary: As per HPI Neurological: As per HPI <Sparkle Celestin - Last Filed: 06/14/23 12:18> Physical Examination - Vital Signs Temperature: 98.5 F Blood Pressure: 120/52 Pulse: 90 Respirations: 16 Pulse Ox (%): 95 - Physical Exam General: In no apparent distress, Oriented x3 HEENT: Atraumatic, Normocephalic Neck: JVD not distended Respiratory: Normal air movement Cardiovascular: No edema, Other (CXR for PICC placement shows no overload, PICC in proper location) Capillary refill: <2 Seconds Integumentary: Other (iliac crest and left lateral knee with scabbing/healing ) Neurological: Normal speech, Normal tone, Abnormal strength Lymphatics: No axilla or inguinal lymphadenopathy External genitalia: Deferred Rectal: Deferred - Studies Microbiology Data (last 24 hrs): 06/10/23 13:50 Blood - Blood Aerobic Blood Culture - Final Klebsiella Ozaenae 06/10/23 13:50 Blood - Blood Blood Culture Gram Stain - Final 06/10/23 13:50 Blood - Blood Anaerobic Blood Culture - Final Klebsiella Ozaenae 06/10/23 13:50 Blood - Blood Gram Stain - Final 06/10/23 13:35 Blood - Blood Aerobic Blood Culture - Final Klebsiella Ozaenae 06/10/23 13:35 Blood - Blood Blood Culture Gram Stain - Final 06/10/23 13:35 Blood - Blood Anaerobic Blood Culture - Final Klebsiella Ozaenae 06/10/23 13:35 Blood - Blood Gram Stain - Final <Sparkle Celestin - Last Filed: 06/14/23 12:18> Assessment And Plan - Plan ARF/ATN with post obstructive BPH, rhabdo, and UTI Hydration, D5W with 150 NaHCO3 begun per Nephrology hospital day 2 (06/10), continues 06/13 strict I&O Shell daily weight Monitor renal function nephrology following 06/12 Shell with clear yellow urine x 900ml overnight 06/13 clear yellow x 300 in bag Sepsis: 06/09 Zosyn in ED 06/10 Rocephin 2gm IVPB daily s/p +blood cultures (start date 06/10) 06/11 urine with 4+ gram negative rods 06/12 Blood cultures + Klebsiella Ozaenae, susceptible to Rocephin 06/13 Urine culture + Klebsiella Ozanenae, susceptible to Rocephin (dose #4) PICC placed overnight for at least 10 more days of Rocephin 2 gms daily) Electrolyte derangement Monitor and replete calorie deficit - Louie and Ensure 06/12 asking for additional Ensure and taking Louie but not wanting regular diet yet 06/13 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 I agree with the note by the FABRIC SOURCER. Continue abx for the bacteremia. Hold the synthroid. Check TSH. <Yenni Kim - Last Filed: 06/25/23 16:23>
[2023-06-14 11:27] LABS: Thyroid Stimulating Hormone 1.02 uIU/mL (0.358-3.740)
[2023-06-14] MEDS ORDERED: SODIUM CHLORIDE 0.9% 10ML INJ IV PRN (12:03)
--- NOTE | 2023-06-14 12:28 | P.PN ---
Subjective Date of Service: 06/14/23 Chief Complaint: ARF/ATN, Rhabdo Called to Pt's room urgently. Pt was up for BM, he told his Nurse he would like to walk a little. After a short distance of ambulation, he became diaphoretic, pale, with a blank stare, and gagging. His Nurse got him immediately and safely back in bed. The room smelled of melena. Mr. Izaguirre is anemic, iron deficient, and has not been up out of bed since admission. He remained pale, conscious, and minimally diaphoretic for a few minutes. His blood sugar was normal, he answered questions appropriately, GCS 15. I feel he had a significant vagal episode. We discussed the danger of getting out of bed alone. He voices understanding. IV iron x 1 bag ordered for iron of 55. Hemoglobin stable at 9.4. VS now 120/52, 90, 16, 98.5, SpO2 95% <Sparkle Celestin - Last Filed: 06/14/23 12:19> Date of Service: 06/14/23 <Yenni Kim - Last Filed: 06/14/23 12:41> Review of Systems General: Weakness Gastrointestinal: Nausea Neurological: Other (near syncope), As per HPI <Sparkle Celestin - Last Filed: 06/14/23 12:19> Physical Examination - Vital Signs Temperature: 98.5 F Blood Pressure: 120/52 Pulse: 90 Respirations: 16 Pulse Ox (%): 95 - Physical Exam General: Alert, Other (mildly diaphoretic) HEENT: Atraumatic, Normocephalic Neck: Supple Respiratory: Normal air movement Cardiovascular: Normal pulses, Regular rate/rhythm Capillary refill: <2 Seconds Gastrointestinal: Soft and benign Musculoskeletal: No clubbing Integumentary: Other (pallor) Neurological: Normal speech, Normal tone, Normal affect Lymphatics: No axilla or inguinal lymphadenopathy External genitalia: Deferred Rectal: Deferred - Studies Microbiology Data (last 24 hrs): 06/10/23 13:50 Blood - Blood Aerobic Blood Culture - Final Klebsiella Ozaenae 06/10/23 13:50 Blood - Blood Blood Culture Gram Stain - Final 06/10/23 13:50 Blood - Blood Anaerobic Blood Culture - Final Klebsiella Ozaenae 06/10/23 13:50 Blood - Blood Gram Stain - Final 06/10/23 13:35 Blood - Blood Aerobic Blood Culture - Final Klebsiella Ozaenae 06/10/23 13:35 Blood - Blood Blood Culture Gram Stain - Final 06/10/23 13:35 Blood - Blood Anaerobic Blood Culture - Final Klebsiella Ozaenae 06/10/23 13:35 Blood - Blood Gram Stain - Final <Sparkle Celestin - Last Filed: 06/14/23 12:19> - Studies Microbiology Data (last 24 hrs): 06/10/23 13:50 Blood - Blood Aerobic Blood Culture - Final Klebsiella Ozaenae 06/10/23 13:50 Blood - Blood Blood Culture Gram Stain - Final 06/10/23 13:50 Blood - Blood Anaerobic Blood Culture - Final Klebsiella Ozaenae 06/10/23 13:50 Blood - Blood Gram Stain - Final 06/10/23 13:35 Blood - Blood Aerobic Blood Culture - Final Klebsiella Ozaenae 06/10/23 13:35 Blood - Blood Blood Culture Gram Stain - Final 06/10/23 13:35 Blood - Blood Anaerobic Blood Culture - Final Klebsiella Ozaenae 06/10/23 13:35 Blood - Blood Gram Stain - Final <Yenni Kim C - Last Filed: 06/14/23 12:41> Assessment And Plan - Plan ARF/ATN with post obstructive BPH, rhabdo, and UTI Hydration, D5W with 150 NaHCO3 begun per Nephrology hospital day 2 (06/10), continues 06/13 strict I&O Shell daily weight Monitor renal function nephrology following 06/12 Shell with clear yellow urine x 900ml overnight 06/13 clear yellow x 300 in bag Sepsis: 06/09 Zosyn in ED 06/10 Rocephin 2gm IVPB daily s/p +blood cultures (start date 06/10) 06/11 urine with 4+ gram negative rods 06/12 Blood cultures + Klebsiella Ozaenae, susceptible to Rocephin 06/13 Urine culture + Klebsiella Ozanenae, susceptible to Rocephin (dose #4) PICC placed overnight for at least 10 more days of Rocephin 2 gms daily) Electrolyte derangement Monitor and replete calorie deficit - Louie and Ensure 06/12 asking for additional Ensure and taking Louie but not wanting regular diet yet 06/13 PICC placed overnight for residential abx/possibly for nutrition Supratherapeutic thyroid medication Hold Levothyroxine 06/12 - repeat TSH in am tomorrow 06/13 - TSH 1.02 Pressure sores Wound care Mupirocin air mattress skin protection measures offloading Consult social service worker/PT for evaluation 06/12 - awaiting placement DVT/GI prophylaxis Heparin/protonix Pt with vasovagal response post BM. Back to bed, his hemoglobin is stable at 9.4. The stool was said to be soft brown but smelled melanotic. Pt's renal function is recovering but unable to verify blood in stool. Will start on Protonix 40mg IV today and will give 1 bag IV iron. As current level is 55L. <Sparkle Celestin - Last Filed: 06/14/23 12:19> - Plan Pt seen and examined. I agree with the note by the TRAFFIC PERSONNEL SUPERVISOR. Pt became diaphoretic after walking a short distance. Likely due to vasovagal response. Will monitor closely. Continue iron infusion due to iron deficiency. Continue rocephin for the bacteremia and UTI <Yenni Kim - Last Filed: 06/14/23 12:41>
[2023-06-14] MEDS: SOD FERRIC GLUC COMPLX/SUCROSE 250 MG in NA CHLORIDE 0.9% 250 ML IV SCH ×2 (12:48→13:00)
--- NOTE | 2023-06-14 13:33 | PN ---
Date of Progress Note: 06/14/2023 Subjective: The patient was admitted to the hospital with acute kidney injury secondary to obstructive uropathy. Patient's Shell was inserted and started on hydration. Kidney function started improving. The patient did not require any renal replacement therapy. Physical Examination: Vital Signs: Blood pressure 120/52, pulse of 90, afebrile. The patient had good urine output of 1900. Chest: Clear to auscultation. Heart: S1, S2. Regular. Abdomen: Soft, nontender. Extremities: Plus edema. Neuro: Alert. No focality. Laboratory Data: Hemoglobin 9.4. Sodium 139, potassium 4, bicarb 30, BUN down to 113; creatinine 4.1, continues to trend down; calcium 7.4. Phosphorus 3, magnesium of 2. Albumin 2.1. Current Medications: The patient is on include: Ceftriaxone, Flomax. Received Epogen. Ensure, mupirocin, levothyroxine, and IV fluid. Assessment And Plan: 1. Acute kidney injury multifactorial secondary to obstructive uropathy/prerenal, recovered. Continue hydration. 2. Anemia of chronic kidney disease, started on EDDIE. 3. Obstructive uropathy. Continue Flomax and continue Shell. We will need a Urology evaluation. 4. Hypernatremia secondary to depletion, recovered. 5. Hyperkalemia, resolved. Time spent examining the patient [id number], reviewing data, lab and radiology, placing order, discussing the case with the patient, discussing the case with the inspector outside steam distribution including hospitalist and nursing staff with the dialysis nurse more than 35 minutes EMORY Voice ID: [id number] Report ID: [id number]
[2023-06-14] MEDS: MEGESTROL 40 MG TAB PO ONE (17:15)
[2023-06-14 17:22] VITALS: BMI 15.2
[2023-06-14] MEDS: PANTOPRAZOLE 40 MG INJ IVP SCH (20:15)
[2023-06-14] MEDS ORDERED: SOD FERRIC GLUC COMPLX/SUCROSE 250 MG in NA CHLORIDE 0.9% 250 ML IV SCH (21:00)
[2023-06-15 06:30] LABS: Absolute Eosinophils 0.3 K/uL (0-0.5); Absolute Lymphocytes (CBC) 1.1 K/uL (0.7-4.9); Absolute Monocytes 1.1 K/uL (0.1-1.3); Absolute Neutrophil 6.5 K/uL (1.8-8.0); Basophils % 0.4 % (0-1.3); Eosinophils % 3.7 % (0-4.4); Hematocrit 26.7 % (39.6-49.0); Hemoglobin 8.8 g/dL (13.6-17.9); Lymphocytes % 11.7 % (15.3-44.8); MCH 31.8 pg (27.0-35.0); MCHC 32.9 g/dL (32.0-36.0); MCV 96.7 fL (80-100); MPV 9.9 fL (7.6-11.3); Monocytes % 11.9 % (3.3-12.3); Neutrophils % 72.3 % (41.7-73.7); Platelets 254 thou/uL (152-406); RBC Red Blood Cell Count 2.76 M/uL (4.33-5.43); Red Cell Distribution Width 13.5 % (12.1-15.2)
[2023-06-15 06:52] LABS: Albumin/Globulin Ratio 0.6 (1.1-1.8); Anion Gap 5.5 mEq/L (5.0-15.0); Bilirubin Total 0.3 mg/dL (0.2-1.0); Globulin 3.3 g/dL (2.3-3.5); Phosphorus 2.8 mg/dL (2.5-4.9); Potassium 3.5 mEq/L (3.5-5.1); Protein, Total 5.3 g/dL (6.4-8.2)
[2023-06-15] MEDS: POTASSIUM CL SA 10 MEQ TAB PO ONE (08:37)
--- NOTE | 2023-06-15 08:42 | P.PN ---
Subjective Date of Service: 06/15/23 Chief Complaint: ARF/ATN, Rhabdo Admitted for sepsis, acute renal failure, rhabdo, treated with IV fluid was noted to have blood positive blood cultures, PICC line placed, plan for IV antibiotics bacteremia PICC placed overnight for at least 10 more days of Rocephin 2 gms daily) 06/14 needs urology eval per nephrology for obstructive uropathy, Shell in place - Physical Exam General: Alert, Other (mildly diaphoretic) HEENT: Atraumatic, Normocephalic Neck: Supple Respiratory: Normal air movement Cardiovascular: Normal pulses, Regular rate/rhythm Capillary refill: <2 Seconds Gastrointestinal: Soft and benign Musculoskeletal: No clubbing Integumentary: Other (pallor) Neurological: Normal speech, Normal tone, Normal affect Review of Systems Per HPI Physical Examination - Vital Signs Temperature: 98.0 F Blood Pressure: 109/44 Pulse: 84 Respirations: 16 Pulse Ox (%): 96 Assessment And Plan - Plan Assessment plan Sepsis secondary to bacteremia without shock 06/09 Zosyn in ED Acute cystitis 06/10 Rocephin 2gm IVPB daily s/p +blood cultures (start date 06/10) 06/11 urine with 4+ gram negative rods 06/12 Blood cultures + Klebsiella Ozaenae, susceptible to Rocephin 06/13 Urine culture + Klebsiella Ozanenae, susceptible to Rocephin (dose #4) PICC placed overnight for at least 10 more days of Rocephin 2 gms daily) Acute renal failure, likely secondary to prerenal sepsis ARF/ATN with post obstructive BPH Hydration, D5W with 150 NaHCO3 begun per Nephrology hospital day 2 (06/10), continues 06/13 strict I&O Shell daily weight Monitor renal function nephrology following 06/12 Shell with clear yellow urine x 900ml overnight 06/13 clear yellow x 300 in bag 06/14 urology eval per neph Dr Mcgraw notified Electrolyte derangement Protein calorie malnutrition Monitor and replete calorie deficit - Louie and Ensure 06/12 asking for additional Ensure and taking Louie but not wanting regular diet yet 06/13 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
[2023-06-15 10:21] LABS: Blood Morphology Comment NOT SEEN (NOT SEEN); Platelet Estimate ADEQ; White Blood Cell Scan OK (OK)
--- NOTE | 2023-06-15 13:14 | EKG ---
Test Date: 2023-06-10 Test Time: 13:08:44 Shredder Tender Peat: JOHN MEASUREMENT RESULTS: Intervals: Rate: 75 MO: 92 QRSD: 74 QT: 398 QTc: 444 [place]: P: 66 MO: 92 QRS: 75 T: 73 INTERPRETIVE STATEMENTS: Sinus rhythm with short MO with occasional premature ventricular complexes Nonspecific ST abnormality Abnormal ECG No previous ECG available for comparison Electronically Signed On 06-15-23 13:00:53 CDT by Joe Ruiz
--- NOTE | 2023-06-15 13:14 | EKG ---
Test Date: 2023-06-10 Test Time: 13:15:54 Electric Motor Assembler And Tester: JOHN MEASUREMENT RESULTS: Intervals: Rate: 75 MA: 106 QRSD: 82 QT: 386 QTc: 431 [place]: P: 88 MA: 106 QRS: 79 T: 75 INTERPRETIVE STATEMENTS: Sinus rhythm with short MA Junctional ST depression, probably normal Borderline ECG Compared to ECG 06/10/2023 13:08:44 Ventricular premature complex(es) no longer present ST (T wave) deviation still present Electronically Signed On 06-15-23 13:00:49 CDT by Joe Ruiz
[2023-06-15] MEDS: NACHLORIDE 0.45% 1,000 ML IV SCH (13:18)
[2023-06-15 13:46] VITALS: O2SAT 96
--- NOTE | 2023-06-15 21:56 | P.CNS ---
Date of Consult: 06/15/23 Chief Complaint: ARF/ATN, Rhabdo History of Present Illness: 82-year-old gentleman with hypothyroidism and history of TURP apparently over 10 years ago, patient does not recall by whom or when, presents having been found down after 3 days, patient does not recall falling or how long he was down, with acute kidney injury associated with rhabdomyolysis with a CK of 928. He does not recall having difficulty urinating, though he does recall having required a catheter in the past. Patient otherwise generally a poor historian. 06/10/2023 creatinine 6.80, BUN 177, bicarb 16, sodium 146, CK9 128 06/13/2023 CK 190 06/15/2023 creatinine 3.69 (eGFR 16), BUN 94, bicarb 31 06/11/2023 urine culture revealed Klebsiella pneumoniae resistant to ampicillin only Blood cultures x 2 also Klebsiella species resistant to ampicillin only 06/11/2023 CT abdomen and pelvis without contrast impression: Severe bilateral hydroureteronephrosis with no evidence of obstructing calculi. Findings may relate to strictures at the level of the VU J or longstanding retrograde reflux. Marked prostatomegaly. Incidental findings as above. Findings: Bilateral layering pleural effusions with subsegmental atelectasis. Liver shows a centrally located 1.9 cm fluid density lesion suggestive of a cyst. Adrenal glands, spleen and pancreas without suspicious findings. Ovoid left superior pole exophytic cortical 2.1 cm cyst with wall calcifications. No radiopaque calculi. -I reviewed the CT scan in detail and noted the massive bilateral hydroureteronephrosis with thickened and hyperdense bladder associated with massive prostatomegaly with Shell catheter appropriately positioned within the bladder. Left upper pole posterior medial renal cyst with layering calcification along the parenchymal wall with density 5 to 10 HU, consistent with at least a Bosniak class II or higher cystic renal lesion. Examination: Patient alert and awake in no acute distress No dyspnea or sign of respiratory distress No cervical/supraclavicular adenopathy or thyromegaly Abdomen soft, nontender, nondistended, no masses, no suprapubic tenderness Genitalia: Uncircumcised without lesion. Orthotopic meatus patent with urethral Shell catheter in place draining clear yellow urine. Assessment and recommendation: 82-year-old gentleman poor historian with hypothyroidism and remote history of TURP found down with rhabdomyolysis and DWIGHT associated with massive prostatomegaly and bilateral massive hydroureteronephrosis. -Catheter has been in place now for at least 4 to 5 days. Recommend renal ultrasound to assess resolution of the hydronephrosis. I counseled the patient that if persistent hydronephrosis seen, surgical intervention may be required. -Otherwise, recommend leave the Shell catheter in place for at least 14 days, and we may consider a voiding trial as an outpatient -Flomax if he can tolerate it -PSA once the acute illness as described above is resolved -Outpatient cystoscopy and potential for surgical intervention relative to his prostatomegaly and voiding dysfunction likely -N.p.o. after 8 AM tomorrow in the event surgical intervention to be considered. If no hydronephrosis seen on ultrasound, patient may eat. Allergies Penicillins Allergy (Verified 06/10/23 18:02) Itching Home medications list reviewed: Yes Home Medications: Levothyroxine [Synthroid*] 0.88 mg PO DAILY 06/14/23 - Past Medical/Surgical History Diabetic: No -: hypothyroidism -: BPH with TURP -: TURP Psychosocial/ Personal History: Lives alone. He states he likes to lie on the floor. Daughter and ex- at bedside. - Social History Alcohol use: No CD- Drugs: No Caffeine use: Yes Place of Residence: Home Physical Examination Temp Pulse Resp BP Pulse Ox 98.0 F 84 16 109/44 L 96 06/15/23 18:49 06/15/23 18:49 06/15/23 18:49 06/15/23 18:49 06/15/23 18:49 - Problems (1) DWIGHT (acute kidney injury) Current Visit: Yes Status: Acute (2) Rhabdomyolysis Current Visit: Yes Status: Acute (3) BPH with urinary obstruction Current Visit: Yes Status: Acute (4) Urinary retention Current Visit: Yes Status: Acute (5) Bilateral hydronephrosis Current Visit: Yes Status: Acute (6) Complicated UTI (urinary tract infection) Current Visit: Yes Status: Acute (7) Sepsis due to urinary tract infection Current Visit: Yes Status: Acute Critical Care: No Time Spent Managing Pts care (In Minutes): 45
--- NOTE | 2023-06-16 04:12 | PN ---
Date of Progress Note: 06/15/2023 Subjective: Patient was admitted to the hospital for acute kidney injury secondary to obstructive uropathy. Shell catheter was started. The patient was found to have hypernatremia secondary to dehydration. Renal function is gradually improving. Patient did not require renal replacement therapy. Review of Systems: No pain. No dyspnea, no chest pain , no cough Physical Examination: Lungs: Diminished breath sounds at the bases. Heart: S1, S2. Abdomen: Soft. Extremities: No edema. Abdomen: Soft, benign, nontender. Laboratory Data: BUN 113, creatinine 4.1 phosphorus 3, magnesium 2, albumin 2.1, sodium 139. Impression And Plan: 1. Acute kidney injury, multifactorial secondary to obstructive uropathy, prerenal azotemia. Renal function has improved somewhat. Continue IV fluids. 2. Anemia of chronic kidney disease. The patient was started on EDDIE. 3. Obstructive uropathy. Continue Flomax and continue Shell catheter. Evaluate potassium level. 4. Hypernatremia secondary to volume depletion. Adjust IV fluids for adequate correction of hypernatremia. 5. Hyperkalemia, resolved. Monitor renal panel. EB/MODL Voice ID: [id number] Report ID: [id number] [facility]
[2023-06-16 07:24] LABS: Absolute Eosinophils 0.4 K/uL (0-0.5); Absolute Lymphocytes (CBC) 1.4 K/uL (0.7-4.9); Absolute Monocytes 1.2 K/uL (0.1-1.3); Absolute Neutrophil 8.6 K/uL (1.8-8.0); Basophils % 0.4 % (0-1.3); Eosinophils % 3.1 % (0-4.4); Hemoglobin 9.1 g/dL (13.6-17.9); Lymphocytes % 12.1 % (15.3-44.8); MCH 31.5 pg (27.0-35.0); MCHC 32.6 g/dL (32.0-36.0); MCV 96.8 fL (80-100); MPV 10.3 fL (7.6-11.3); Monocytes % 10.1 % (3.3-12.3); Neutrophils % 74.3 % (41.7-73.7); Platelets 277 thou/uL (152-406); RBC Red Blood Cell Count 2.89 M/uL (4.33-5.43); Red Cell Distribution Width 13.6 % (12.1-15.2)
[2023-06-16 07:25] LABS: Albumin 2.1 g/dL (3.4-5.0); Albumin/Globulin Ratio 0.6 (1.1-1.8); Bilirubin Total 0.3 mg/dL (0.2-1.0); Globulin 3.6 g/dL (2.3-3.5); Magnesium 1.8 mg/dL (1.6-2.4); Phosphorus 3.1 mg/dL (2.5-4.9); Protein, Total 5.7 g/dL (6.4-8.2)
[2023-06-16] MEDS: NA CHLORIDE 0.9% 500 ML IV ONE (09:31)
--- NOTE | 2023-06-16 10:18 | P.DS ---
Admission Date: 06/10/23 Discharge Date: 06/16/23 Disposition: TRANSFER TO SNF - REHAB Discharge Condition: GOOD Reason for Admission: ARF/ATN, Rhabdo Brief History of Present Illness: Mr. Izaguirre is an 82-year-old male with a past medical history of hypothyroidism and an enlarged prostate status post TURP. He lives alone and is said to be stubborn per his family. He tells me he did not fall but chose to lie on the floor on Thursday evening and did not feel like getting up. However, he is noted to have a discoloration to his left forehead, a stage II pressure sore to his left iliac crest, and an abrasion to his left lateral knee. Apparently his neighbor noted he was not outdoors and did a welfare check. He was brought to the ED very dehydrated, debilitated, but not confused. On assessment in the emergency department, not surprisingly, he was found to be in acute renal failure with rhabdo. CBC with a WBC of 9.61 with neutrophils of 90.7%, H/H of 11.4/34.7, platelets 216. Chemistry significant for a sodium of 146, potassium 5.1, chloride 113, bicarb 16, glucose 116, BUN 177, and creatinine 6.86 with a GFR of 7. Imaging with chest x-ray shows no acute cardiopulmonary process, CT head and C-spine show no acute traumatic intracranial or cervical spine findings, and x-ray of the pelvis shows no acute osseous abnormality of the bony pelvis with mild bilateral hip joint degenerative changes. On review of his records, a renal ultrasound was found from 08/13/2020 with the impression reading "right greater than left renal pelvic dilatation far less prominent than the hydronephrosis seen July 2019. Enlarged lobulated prostate gland projecting into the bladder base. This does not appear substantially different from July 2019. This could be benign prostatic hypertrophy or malignancy of the prostate gland. This does appear to be prostate in origin rather than a bladder base mass. Correlation can be made with PSA values or any prior cystoscopy or consult". Mr. Izaguirre says that he had a TURP to relieve the symptoms. A PSA was sent on admission = 1.38. Renal ultrasound was ordered, and a Shell will be placed. I also sent a TSH and note that Mr. Izaguirre is supratherapeutic at 0.112, will hold Levothyroxine. 1 L NS bolus was completed in the emergency department. We will admit Mr. Izaguirre for further investigation and treatment. - Physical Exam General: Alert, In no apparent distress, Oriented x3, Cachectic, Other (pallor) HEENT: Other (mucous membranes thoroughly dry) Neck: JVD not distended Respiratory: Normal air movement Cardiovascular: Normal pulses, Regular rate/rhythm Capillary refill: <2 Seconds Gastrointestinal: Soft and benign Musculoskeletal: No clubbing, No swelling Integumentary: Pressure ulcer (left forehead with discoloration, left iliac crest with stage two blistered and broken skin, left lateral knee with a small abrasion, right lateral elbow with oval bruise) Neurological: Normal speech, Normal tone Lymphatics: No axilla or inguinal lymphadenopathy Hospital Course: 82-year-old male with a past medical history of hypothyroidism and an enlarged prostate status post TURP. Was presented to the ER after a fall on ground. Was found by neighbor. Was noted to have elevated CK, rhabdomyolysis, treated with acute renal failure, with IV fluids, electrolyte derangement. Replete as needed. Supratherapeutic thyroid. Was noted to have a pressure ulcer, was evaluated by wound care. Placed on air mattress. For offloading. Laboratory evaluation was noted to have bacteremia, sepsis without shock. Acute cystitis. Was treated with IV antibiotics. Plan for PICC line placement, transferred to alf facility for IV antibiotics, continued physical therapy. With fall precautions. Transition to alf facility, follow-up with Dr. Mcgraw Assessment plan Rhabdo, treated with IV fluid improved Acute renal failure treated with IV fluids, improved Bacteremia and treated with IV antibiotics susceptible to Rocephin treated while inpatient DC with cefdinir p.o. Acute cystitis treated with Rocephin treated and patient treated with cefdinir p.o. Electrolyte derangement treated with electrolyte replacement Protein calorie malnutrition treated with supplementation Supratherapeutic thyroid held Synthroid while inpatient Sacral ulcer pressure offloading, wound care eval Fall, fall precautions, alf facility for continued PT BPH with urinary obstruction treated with recent TURP follow-up with Dr. Mcgraw outpatient Blood cultures, urine cultures 06/11 urine with 4+ gram negative rods 06/12 Blood cultures + Klebsiella Ozaenae, susceptible to Rocephin 06/13 Urine culture + Klebsiella Ozanenae, susceptible to Rocephin DC on cefdinir Continue home medicines as previously prescribed GOAL: Clear understanding of disease process INSTRUCTIONS: Physician Discharge Instructions: -DC IV and DC home -Follow-up with PCP in 1 to 2 weeks -Please call Dr. Giles at [phone] if any questions regarding hospital stay -Please call nursing station at [phone] if any nursing or medication questions -Return to the emergency room if symptoms worsen Diet: ADA, low sodium Activity: Fall precautions Vital Signs/Physical Exam: Temp Pulse Resp BP Pulse Ox 97.2 F 81 16 128/54 L 96 06/16/23 08:00 06/16/23 08:00 06/16/23 08:00 06/16/23 08:00 06/16/23 08:00 Laboratory Data at Discharge: WBC 11.50 thou/uL (4.3-10.9) H 06/16/23 06:48 Hgb 9.1 g/dL (13.6-17.9) L 06/16/23 06:48 Hct 28.0 % (39.6-49.0) L 06/16/23 06:48 Plt Count 277 thou/uL (152-406) 06/16/23 06:48 PT 12.1 SECONDS (9.5-12.5) 06/10/23 12:45 INR 1.10 06/10/23 12:45 APTT 24.3 SECONDS (24.3-36.9) 06/10/23 12:45 Sodium 136 mEq/L (136-145) 06/16/23 06:48 Potassium 4.0 mEq/L (3.5-5.1) D 06/16/23 06:48 BUN 78 mg/dL (7-18) H 06/16/23 06:48 Creatinine 3.36 mg/dL (0.70-1.30) H 06/16/23 06:48 Glucose 90 mg/dL (74-106) 06/16/23 06:48 Phosphorus 3.1 mg/dL (2.5-4.9) 06/16/23 06:48 Magnesium 1.8 mg/dL (1.6-2.4) 06/16/23 06:48 Total Bilirubin 0.3 mg/dL (0.2-1.0) 06/16/23 06:48 AST 27 U/L (15-37) 06/16/23 06:48 ALT 30 U/L (16-61) 06/16/23 06:48 Alkaline Phosphatase 44 U/L (45-117) L 06/16/23 06:48 Triglycerides 166 mg/dL (<150) H 06/11/23 04:03 Cholesterol 169 mg/dL (<200) 06/11/23 04:03 HDL Cholesterol 30 mg/dL (40-60) L 06/11/23 04:03 Cholesterol/HDL Ratio 5.63 06/11/23 04:03 Home Medications: Levothyroxine [Synthroid*] 0.88 mg PO DAILY 06/14/23 Cefdinir [Cefdinir*] 300 mg PO BID #14 cap 06/16/23 Ensure Enlive 237 ml PO BID #60 can 06/16/23 Louie [Louie*] 1 pkt PO BID #60 packet 06/16/23 Medihoney [Medihoney Woundcare Gel*] 1 appl TOP DAILY #1 tube 06/16/23 Mupirocin Calcium [Bactroban Nasal*] 1 appl SANDY BID #1 tube 06/16/23 Tamsulosin [Flomax*] 0.4 mg PO BEDTIME #30 cap 06/16/23 New Medications: Mupirocin Calcium [Bactroban Nasal*] 1 appl SANDY BID #1 tube Cefdinir [Cefdinir*] 300 mg PO BID #14 cap Ensure Enlive 237 ml PO BID #60 can Tamsulosin [Flomax*] 0.4 mg PO BEDTIME #30 cap Louie [Louie*] 1 pkt PO BID #60 packet Medihoney [Medihoney Woundcare Gel*] 1 appl TOP DAILY #1 tube Physician Discharge Instructions: -DC IV and DC to SNF -Follow-up with PCP in 2-4 weeks -Follow-up with Cardiology in 1 to 2 weeks -Please call Dr. Giles at [phone] if any questions regarding hospital stay -Please call nursing station at [phone] if any nursing or medication questions -Return to the emergency room if symptoms worsen snf facility: [address] [address] P:[phone]/F:[phone] Finish antibiotics over the course of 1 more week Diet: Renal Activity: Fall precautions Followup: Tone Snell MD [Primary Care Provider] - Melvin Mcgraw [ACTIVE - CAN ADMIT] - Time spent managing pt's care (in minutes): 55
[2023-06-16 11:25] LABS: C-ANCA Anti-Proteinase 3 <1.0 AI (<1.0); P-ANCA Anti-Myeloperoxidase Ab <1.0 AI (<1.0)
[2023-06-16 12:34] VITALS: BP 115/47; TEMP 99.7
[2023-06-16 13:10] LABS: Abnormal Protein Band 1 REPORT; Albumin, (SPE) 2.6 g/dL (3.8-4.8); Alpha-1-Globulins 0.4 g/dL (0.2-0.3); Alpha-2-Globulins 0.8 g/dL (0.5-0.9); Beta 1 Globulin 0.3 g/dL (0.4-0.6); Gamma Globulins 0.9 g/dL (0.8-1.7); INTERPRETATION REPORT; Total Protein 5.2 g/dL (6.1-8.1)
--- NOTE | 2023-06-16 18:09 | PN ---
Date of Progress Note: 06/16/2023 Subjective: The patient was admitted to the hospital with the acute kidney injury secondary to obstructive uropathy and prerenal. Patient was started on Shell, started on hydration. Kidney function improving in a daily basis. The patient is Shell dependent. Did not require any renal replacement therapy. Objective: Vital Signs: Blood pressure 115/47, pulse of 89, afebrile. Chest: Clear to auscultation. Heart: S1, S2. Regular. Abdomen: Soft nontender. Extremity: No edema. Neurologic: Alert. No focality. No tremor. Laboratory Data: Hemoglobin 9.1, sodium 136, potassium 4, bicarb 24, BUN 78, trending down from 177, creatinine 3.3, calcium 7.7, phosphorus 3.1, magnesium 1.8. Current Medications: The patient on, it includes: 1. Ceftriaxone. 2. Flomax. 3. Mupirocin. 4. Pantoprazole. 5. Levothyroxine. 6. Normal saline. Assessment And Plan: 1. Acute kidney injury, multifactorial, secondary to obstructive uropathy, prerenal, on the recovery phase, good p.o. intake. I am going to go ahead and discontinue IV fluid and we will continue to monitor. Continue Flomax and Shell. The patient is going to need urology evaluation. 2. Hypertension, controlled, optimal. Continue current treatment. 3. Hyperkalemia, resolved. 4. Acidosis, resolved. 5. Hyponatremia secondary to depletional, resolved. Time spent examining the patient [id number], reviewing data, lab and radiology, placing order, discussing the case with the patient, discussing the case with the call center team leader including hospitalist and nursing staff with the dialysis nurse more than 35 minutes EMORY Voice ID: [id number] Report ID: [id number] MAX
[2023-06-18 13:37] LABS: Anti-Nuclear Antibody Screen Positive (Negative)
[2023-06-18 14:04] LABS: Anti-Nuclear Antibody Pattern REPORT; Anti-Nuclear Antibody Titer 1:40 (Negative)
== END 2023-06-16 15:15 | DRG 871 ==
LOC: ER 12:15 → ERHOLD 15:02 → 4TH 15:34
PROVIDERS: ADMIT Hospitalist; ATTEND Hospitalist
PROC: 0T9B70Z Drainage of Bladder with Drainage Device, Via Natural or Artificial Opening (ICD-10-PCS; principal; 2023-06-10)
PROC: 02HV33Z Insertion of Infusion Device into Superior Vena Cava, Percutaneous Approach (ICD-10-PCS; 2023-06-13)
DX: A41.9 Sepsis, unspecified organism (principal); E43 Unspecified severe protein-calorie malnutrition; N17.0 Acute kidney failure with tubular necrosis; Z68.1 Body mass index [BMI] 19.9 or less, adult; M62.82 Rhabdomyolysis; R64 Cachexia; E87.0 Hyperosmolality and hypernatremia; E87.20 Acidosis, unspecified; N13.8 Other obstructive and reflux uropathy; Z16.11 Resistance to penicillins; N13.6 Pyonephrosis; E87.1 Hypo-osmolality and hyponatremia; N40.1 Benign prostatic hyperplasia with lower urinary tract symptoms; N13.9 Obstructive and reflux uropathy, unspecified; R33.8 Other retention of urine; I10 Essential (primary) hypertension; E86.0 Dehydration; E87.6 Hypokalemia; E87.5 Hyperkalemia; D50.9 Iron deficiency anemia, unspecified; E03.9 Hypothyroidism, unspecified; L89.159 Pressure ulcer of sacral region, unspecified stage; S80.212A Abrasion, left knee, initial encounter; F03.90 Unspecified dementia, unspecified severity, without behavioral disturbance, psychotic disturbance, mood disturbance, and anxiety; B96.1 Klebsiella pneumoniae [K. pneumoniae] as the cause of diseases classified elsewhere; Z88.0 Allergy status to penicillin; Z60.2 Problems related to living alone; Z79.890 Hormone replacement therapy; Z79.899 Other long term (current) drug therapy
CPT/HCPCS: 36415; 70450; 71045; 72125; 72170; 74176; 76770; 80053; 80061; 80069; 80179; 81001; 82550; 82570; 82607; 82728; 82947; 83520; 83540; 83605; 83735; 83970; 84100; 84132; 84156; 84165; 84443; 84466; 84484; 85025; 85044; 85610; 85730; 86021; 86038; 86430; 86803; 87040; 87077; 87086; 87088; 87186; 87205; 93005; 96360; 96361; 97110; 97116; 97161; 97530; 99285; C9113; G0103; J0696; J1644; J2543; J2916; J3480; J3486; J7030; J7040; J7050; J7799; Q5106

== ENCOUNTER 2023-07-01 07:25 | Inpatient (IN) | payer OTHER ==
--- OUTSIDE RECORDS SUMMARY | 2023-07-01 07:29 | XMS REPORT | Continuity of Care Document ---
Author Name Unknown Address [address] [facility]. 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 Attending Clinician U bhavikailRed Kaufman MD Attending Clinician [phone], [facility] Lab Attending Clinician Unavailable , [facility] Surg Spec Procedure Attending Clinician Unavailable Nurse, [facility] Surgery Gu Attending Clinician UnaTERRI Andrdae Attending Clinician Unavailable Terri Jolly Attending Clinician [phone] Only, [facility] Test Attending Clinician Unavailable Hosea Alcaraz MD Attending Clinician [phone] [place]-Constance_Tom_SARAHY Attending Clinician Unavailable Marcin Escobedo MD Attending Clinician [phone] Room, [facility] Uro Procedure Attending Clinician UnaMARCIN Mc Attending Clinician Unavailable Jaya MCCARTY, Lisa Attending Clinician Unavailable Tunde Lopez MD Attending Clinician [phone] RED DAUGHERTY Admitting Clinician Unavailable TUNDE LOPEZ Admitting Clinician Unavailable Red Daugherty MD Admitting Clinician [phone] [place]-Mbayo_A_AH Admitting Clinician Unavailable Tunde Lopez MD Admitting Clinician [phone] Payers Payer Name Policy Type Policy Number Effective Date Expirati on Date Source ROSALIND TROTTER [id number] 2019 00:00:00 [employer] (MEDICARE REPLACEMENT/ADVANT AGE - HMO) [id number] 2019 00:00:00 Problems Condition Name Condition Details Condition Category Status Onset Date Resolution Date Last Treatment Date Treating Clinician Comments Source 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 Problem [facility] Allergies, Adverse Reactions, Alerts Allergy Name Allergy Type Status Severity Reaction(s) Onset Date Inactive Date Treating Clinician Comments Source PENICILL IN DRUG INGREDI Active Unknown-Cmnt 2019-02 0-05 00:00: 00 [facility] Penicill in Propensi ty to adverse reaction s Active Unknown - See comments 2019-02 005 00:00: 00 [facility] Social History Social Habit Start Date Stop Date Quantity Comments Source History of Tobacco Use [facility] Sex Assigned At [facility] Gender identity [facility] Sexual orientation [facility] History SDOH Alcohol Std Drinks [facility] History SDOH Alcohol Binge [facility] History SDOH Alcohol Comment [facility] History of Social function 2023-03-20 00:00:00 2023-03-20 00:00:00 [facility] Alcohol intake 2023-03-20 00:00:00 2023-03-20 00:00:00 Lifetime non-drinker (finding) [facility] Exposure to SARS-CoV-2 (event) 2022-03-28 00:00:00 2022-04-07 13:24:00 Not sure [facility] Tobacco use and exposure 2021-09-18 00:00:00 2021-09-18 00:00:00 Smokeless tobacco non-user [facility] History SDOH Alcohol Frequency 2019-11-21 00:00:00 2019-11-21 00:00:00 1 [facility] Smoking Status Start Date Stop Date Source Never Smoker [facility] Medications Ordered Medication Name Filled Medication Name Start Date Stop Date Current Medication? Ordering Clinician Indication Dosage Frequency Signature (SIG) Comments Components Source tamsulosin 0.4 mg 24 hr capsule 03-20 13:56: 33 Yes .4mg 1 capsule. [facility] gentamicin injection 80 mg 2021-02 20:30: 00 11-25 19:43 :00 No [id number] 80mg [facility] Nitrofurant oin&Nit. Macrocryst (MACROBID) 100 mg capsule 2021-02 00:00: 00 11-26 04:59 :00 No [id number] 100mg Take 1 capsule by mouth in the morning and 1 capsule in the evening. Do all this for 7 days. [facility] sulfamethox azole-trime thoprim (BACTRIM DS) 800-160 mg per tablet 10-22 00:00: 00 10-28 04:59 :00 No [id number] 1{tbl} Take 1 tablet by mouth in the morning and 1 tablet in the evening. Do all this for 5 days. [facility] gabapentin 300 mg capsule 2019-02 00:00: 00 Yes [id number] 300mg Take 1 capsule by mouth every 8 (eight) hours as needed for Pain (scale 4-6). [facility] ibuprofen 200 mg tablet 2019-02 2-16 00:00: 00 Yes [id number] 400mg Take 2 tablets by mouth every 6 (six) hours as needed for Pain (scale 1-3). [facility] carvediloL 12.5 mg tablet 2019-02 016 00:00: 00 Yes [id number] 12.5mg Take 1 tablet by mouth 2 (two) times daily with meals. [facility] Tamsulosin HCl Tamsulosin HCl 10-13 00:00: 00 04-10 00:00 :00 No Rohini Davidson 1 capsule [facility] XELPROS 0.005 % dpem 09-29 00:00: 00 Yes INSTILL 1 DROP DAILY IN EACH EYE AT BEDTIME [facility] Tamsulosin HCl 0.4 MG Tamsulosin HCl 0.4 MG No 1{capsu le} QD Tamsulosin HCl 0.4 MG Levothyroxi ne Sodium 88 MCG Levothyroxi ne Sodium 88 MCG No QD Levothyrox ine Sodium 88 MCG Vital Signs Vital Name Observation Time Observation Value Comments S ource Systolic blood pressure 2023-03-20 19:57:00 146 mm[Hg] [facility] Diastolic blood pressure 2023-03-20 19:57:00 64 mm[Hg] [facility] Heart rate 2023-03-20 19:52:00 84 /min [facility] Body temperature 2023-03-20 19:52:00 36.22 [facility] Respiratory rate 2023-03-20 19:52:00 18 /min [facility] Body height 2023-03-20 19:52:00 170.2 cm [facility] Body weight 2023-03-20 19:52:00 53.706 kg [facility] BMI 2023-03-20 19:52:00 18.54 kg/m2 [facility] Oxygen saturation in Arterial blood by Pulse oximetry 2023-03-20 19:52:00 97 /min [facility] Systolic blood pressure 2022-09-03 19:31:00 153 mm[Hg] [facility] Diastolic blood pressure 2022-09-03 19:31:00 84 mm[Hg] [facility] Heart rate 2022-09-03 19:29:00 88 /min [facility] Body temperature 2022-09-03 19:29:00 36.94 [facility] Respiratory rate 2022-09-03 19:29:00 18 /min [facility] Body weight 2022-09-03 19:29:00 53.071 kg [facility] BMI 2022-09-03 19:29:00 18.32 kg/m2 [facility] Oxygen saturation in Arterial blood by Pulse oximetry 2022-09-03 19:29:00 95 /min [facility] Systolic blood pressure 2022-08-06 19:33:00 141 mm[Hg] [facility] Diastolic blood pressure 2022-08-06 19:33:00 62 mm[Hg] [facility] Heart rate 2022-08-06 19:33:00 74 /min Unive [facility] Respiratory rate 2022-08-06 19:33:00 18 /min [facility] Body height 2022-08-06 19:33:00 170.2 cm [facility] Body weight 2022-08-06 19:33:00 53.524 kg [facility] BMI 2022-08-06 19:33:00 18.48 kg/m2 [facility] Oxygen saturation in Arterial blood by Pulse oximetry 2022-08-06 19:33:00 97 /min [facility] Systolic blood pressure 2022-04-07 19:59:00 139 mm[Hg] [facility] Diastolic blood pressure 2022-04-07 19:59:00 59 mm[Hg] [facility] Heart rate 2022-04-07 19:58:00 90 /min Unive [facility] Body temperature 2022-04-07 19:58:00 36.44 [facility] Respiratory rate 2022-04-07 19:58:00 18 /min [facility] Body height 2022-04-07 19:58:00 170.2 cm [facility] Body weight 2022-04-07 19:58:00 57.516 kg [facility] BMI 2022-04-07 19:58:00 19.86 kg/m2 [facility] Oxygen saturation in Arterial blood by Pulse oximetry 2022-04-07 19:58:00 99 /min [facility] Systolic blood pressure 2022-01-06 20:43:00 165 mm[Hg] [facility] Diastolic blood pressure 2022-01-06 20:43:00 76 mm[Hg] [facility] Heart rate 2022-01-06 20:43:00 83 /min Unive [facility] Body temperature 2022-01-06 20:42:00 36.5 [facility] Respiratory rate 2022-01-06 20:42:00 16 /min [facility] Body height 2022-01-06 20:42:00 170.2 cm [facility] Body weight 2022-01-06 20:42:00 57.607 kg [facility] BMI 2022-01-06 20:42:00 19.89 kg/m2 [facility] Oxygen saturation in Arterial blood by Pulse oximetry 2022-01-06 20:42:00 100 /min [facility] Systolic blood pressure 2021-11-25 19:27:00 181 mm[Hg] [facility] Diastolic blood pressure 2021-11-25 19:27:00 76 mm[Hg] [facility] Heart rate 2021-11-25 19:26:00 82 /min Unive [facility] Body temperature 2021-11-25 19:26:00 36.44 [facility] Respiratory rate 2021-11-25 19:26:00 18 /min [facility] Body height 2021-11-25 19:26:00 170.2 cm [facility] Body weight 2021-11-25 19:26:00 55.792 kg [facility] BMI 2021-11-25 19:26:00 19.26 kg/m2 [facility] Oxygen saturation in Arterial blood by Pulse oximetry 2021-11-25 19:26:00 99 /min [facility] Body height 2021-10-30 18:27:00 170.2 cm [facility] Body weight 2021-10-30 18:27:00 53.252 kg [facility] BMI 2021-10-30 18:27:00 18.39 kg/m2 [facility] Body weight 2021-10-18 19:32:00 54.704 kg [facility] BMI 2021-10-18 19:32:00 18.89 kg/m2 [facility] Body temperature 2021-09-18 19:04:00 36.56 [facility] Respiratory rate 2021-09-18 19:04:00 18 /min [facility] Body height 2021-09-18 19:04:00 170.2 cm [facility] Body weight 2021-09-18 19:04:00 57.425 kg [facility] BMI 2021-09-18 19:04:00 19.83 kg/m2 [facility] Oxygen saturation in Arterial blood by Pulse oximetry 2021-09-18 19:04:00 97 /min [facility] Systolic blood pressure 2021-09-18 19:04:00 129 mm[Hg] [facility] Diastolic blood pressure 2021-09-18 19:04:00 76 mm[Hg] [facility] Heart rate 2021-09-18 19:04:00 90 /min [facility] Procedures Procedure Date / Time Performed Performing Clinician Source REFERRAL- REQUEST/RESPONSE 2023-03-20 06:01:00 D octor Unassigned, [place] [facility] EXTERNAL PROVIDER RECORDS 2023-02-06 06:01:00 Do ctor Unassigned, [place] [facility] AUTHORIZATION FOR RELEASE OF PHI 2023-01-20 06:01:00 Doctor Unassigned, [place] [facility] DME/SUPPLY JUSTIFICATION 2022-12-26 06:01:00 Doc tor Unassigned, [place] [facility] DME/SUPPLY JUSTIFICATION 2022-11-04 05:01:00 Doc tor Unassigned, [place] [facility] EXTERNAL PROVIDER RECORDS 2022-09-09 05:01:00 Do ctor Unassigned, [place] [facility] US RETROPERITONEAL COMPLETE 2022-08-08 17:39:41 Red Daugherty [facility] PATIENT FINANCIAL POLICY 2022-08-08 16:19:58 Doctor Unassigned, [place] [facility] CONSENT/REFUSAL FOR DIAGNOSIS AND TREATMENT 2022-08-08 16:19:28 Doctor Unassigned, [place] [facility] ASSIGNMENT OF BENEFITS 2022-08-08 16:19:08 Parminder r Unassigned, [place] [facility] AUTHORIZATION FOR RELEASE OF PHI 2022-08-05 05:01:00 Doctor Unassigned, [place] [facility] SCANNED LAB RESULTS 2022-08-01 05:01:00 Doctor Finn randolph, [place] [facility] POCT URINALYSIS AUTO 2022-01-06 20:48:00 Court Qu[facility] [facility] POCT URINALYSIS AUTO 2021-11-25 19:24:00 Stalin Daugherty [facility] DISCLOSURE AND CONSENT, MEDICAL AND SURGICAL PROCEDURES 2021-11-25 05:01:00 Doctor Unassigned, [place] [facility] POCT URINALYSIS AUTO 2021-09-18 19:18:00 Court [facility] Encounters Start Date/Time End Date/Time Encounter Type Admission Type Attending [facility] Care Department Encounter ID Source 2023-06-18 09:44:00 [id number] 2021-03-13 11:29:37 [facility] [id number] [facility] 2020-12-15 07:25:47 Outpatient RED DAUGHERTY [facility] [id number] [facility] 2020-12-14 22:47:04 Inpatient TUNDE JEFFERSON [facility] [id number] [facility] 2020-12-14 22:46:02 Emergency [facility] [id number] [facility] 2023-09-25 14:15:00 2023-09-25 14:15:00 Outpatient ARIA SOTOTNEY [facility] [id number] [facility] 2023-06-18 00:00:00 2023-06-18 00:00:00 (TEL) STLMLC STLMLC [id number] [facility] 2023-03-20 13:45:00 2023-03-20 14:16:26 Outpatient GLENYS SOTO [facility] [id number] [facility] 2023-03-20 13:45:00 2023-03-20 14:16:26 Office Visit Glenys Quarles [facility] 1..840.114 350.1.13.10 4.2.7.2.686 [id number] [facility] 2023-03-20 00:00:00 2023-03-20 00:00:00 Orders Only Doctor Unassigned, [place] [address].840.114 350.1.13.10 4.2.7.2.686 [id number] [id number] [facility] 2023-03-11 09:15:00 2023-03-11 09:15:00 [facility] [id number] 2023-03-09 13:45:00 2023-03-09 13:45:00 [facility] [id number] [facility] 2023-02-06 00:00:00 2023-02-06 00:00:00 Orders Only Doctor Unassigned, [place] [address]840.114 350.1.13.10 4.2.7.2.686 [id number] [facility] 2023-01-22 00:00:00 2023-01-22 00:00:00 Telephone Aria Quarlestney [facility] 1.2.840.114 350.1.13.10 4.2.7.2.686 [id number] [facility] 2023-01-21 00:00:00 2023-01-21 00:00:00 Telephone Robina [facility] 1.2.840.114 350.1.13.10 4.2.7.2.686 [id number] [facility] 2023-01-20 00:00:00 2023-01-20 00:00:00 Orders Only Doctor Unassigned, [place] [facility] 1.2.840.114 350.1.13.10 4.2.7.2.686 [id number] [facility] 2023-01-15 00:00:00 2023-01-15 00:00:00 Telephone Aria Quarlestney [facility] 1.2.840.114 350.1.13.10 4.2.7.2.686 [id number] [facility] 2022-12-29 00:00:00 2022-12-29 00:00:00 Telephone Marco Daughertyth [facility] 1.2.840.114 350.1.13.10 4.2.7.2.686 [id number] [facility] 2022-12-26 00:00:00 2022-12-26 00:00:00 Orders Only Doctor Unassigned, [place] [facility] 1.2.840.114 350.1.13.10 4.2.7.2.686 [id number] [facility] 2022-11-05 00:00:00 2022-11-05 00:00:00 Telephone Lucasnabil [facility] 1.2840.114 350.1.13.10 4.2.7.2.686 [id number] [facility] 2022-11-04 00:00:00 2022-11-04 00:00:00 Orders Only Doctor Unassigned, [place] [facility] 1.2840.114 350.1.13.10 4.2.7.2.686 [id number] [facility] 2022-09-09 00:00:00 2022-09-09 00:00:00 Orders Only Doctor Unassigned, [place] [facility] 1.20.114 350.1.13.10 4.2.7.2.686 [id number] [facility] 2022-09-03 14:15:00 2022-09-03 15:29:47 Outpatient R ROBINA [facility] [id number] [facility] 2022-09-03 14:15:00 2022-09-03 15:29:47 Office Visit [facility] 1.2840.114 350.1.13.10 4.2.7.2.686 [id number] [facility] 2022-08-08 11:20:33 2022-08-08 23:59:00 Outpatient R DAT [facility] [id number] [facility] 2022-08-08 11:20:33 2022-08-08 23:59:00 [facility] 1.2840.114 350.1.13.10 4.2.7.2.686 [id number] [facility] 2022-08-07 00:00:00 2022-08-07 00:00:00 [facility] 1.2.840.114 350.1.13.10 4.2.7.2.686 [id number] [facility] 2022-08-06 14:45:00 2022-08-06 15:43:13 Outpatient R ROBINA [facility] [id number] [facility] 2022-08-06 14:45:00 2022-08-06 15:43:13 [facility] 1.2.840.114 350.1.13.10 4.2.7.2.686 [id number] [facility] 2022-08-06 14:00:00 2022-08-06 14:15:00 Operations Officer Visit 2, Adc Lab Dat [facility] 1.2.840.114 350.1.13.10 4.2.7.2.686 [id number] [facility] 2022-08-05 00:00:00 2022-08-05 00:00:00 Orders Only Doctor Unassigned, [place] [facility] 1.2840.114 350.1.13.10 4.2.7.2.686 [id number] [facility] 2022-08-01 00:00:00 2022-08-01 00:00:00 Orders Only Doctor Unassigned, [place] [facility] 1.2840.114 350.1.13.10 4.2.7.2.686 [id number] [facility] 2022-08-01 00:00:00 2022-08-01 00:00:00 Telephone Lucasnabil [facility] 1.2.840.114 350.1.13.10 4.2.7.2.686 [id number] [facility] 2022-04-07 13:45:00 2022-04-07 14:57:34 [facility] [id number] 2022-04-07 13:45:00 2022-04-07 14:57:34 [facility] 1.0.114 350.1.13.10 4.2.7.2.686 [id number] [facility] 2022-01-06 14:15:00 2022-01-06 15:49:34 [facility] [id number] [facility] 2022-01-06 14:15:00 2022-01-06 15:49:34 [facility] 1..114 350.1.13.10 4.2.7.2.686 [id number] [facility] 2021-11-25 14:00:00 2021-11-25 15:08:36 Outpatient R RED DAUGHERTY [facility] [id number] [facility] 2021-11-25 14:00:00 2021-11-25 15:08:36 Office Visit Red Daugherty Rm, Adc Surg Spec Procedure [facility] 1.840.114 350.1.13.10 4.2.7.2.686 [id number] [facility] 2021-11-25 00:00:00 2021-11-25 00:00:00 Orders Only Doctor Unassigned, [place] [facility] 1.0.114 350.1.13.10 4.2.7.2.686 [id number] [facility] 2021-11-21 14:00:00 2021-11-21 15:35:44 Outpatient R DAT [facility] [id number] [facility] 2021-11-21 14:00:00 2021-11-21 15:35:44 Nurse Visit Nurse, [facility] Surgery [facility] 1.2.840.114 350.1.13.10 4.2.7.2.686 [id number] [facility] 2021-11-20 00:00:00 2021-11-20 00:00:00 Telephone Dat [facility] 1.2.840.114 350.1.13.10 4.2.7.2.686 [id number] [facility] 2021-11-18 00:00:00 2021-11-18 00:00:00 Telephone Dat [facility] 1.2.840.114 350.1.13.10 4.2.7.2.686 [id number] [facility] 2021-11-18 00:00:00 2021-11-18 00:00:00 Case Management Glenys Quarles [facility] 1.2.840.114 350.1.13.10 4.2.7.2.686 [id number] [facility] 2021-11-13 13:00:00 2021-11-13 13:30:00 Nurse Visit Nurse, [facility] Surgery [facility] 1.2.840.114 350.1.13.10 4.2.7.2.686 [id number] [facility] 2021-11-13 13:00:00 2021-11-13 13:00:00 [facility] [id number] [facility] 2021-11-08 00:00:00 2021-11-08 00:00:00 Telephone Dat [facility] 1.2.840.114 350.1.13.10 4.2.7.2.686 [id number] [facility] 2021-10-30 13:15:00 2021-10-30 13:50:02 Nurse Visit Nurse, [facility] 1.2.840.114 350.1.13.10 4.2.7.2.686 [id number] [facility] 2021-10-30 13:15:00 2021-10-30 13:15:00 Outpatient R DAT [facility] [id number] [facility] 2021-10-22 00:00:00 2021-10-22 00:00:00 [facility] 1.2.840.114 350.1.13.10 4.2.7.2.686 [id number] [facility] 2021-10-18 14:15:00 2021-10-18 14:24:57 Outpatient R DAT [facility] [id number] [facility] 2021-10-18 14:15:00 2021-10-18 14:24:57 Nurse Visit Nurse, [facility] 1.2.840.114 350.1.13.10 4.2.7.2.686 [id number] [facility] 2021-09-18 13:30:00 2021-09-18 14:32:42 [facility] [id number] [facility] 2021-09-18 13:30:00 2021-09-18 14:32:42 Office Visit Glenys Quarles [facility] 1..840.114 350.1.13.10 4.2.7.2.686 [id number] [facility] 2021-09-11 14:00:00 2021-09-11 14:00:00 [facility] [id number] [facility] 2021-05-27 15:30:00 2021-05-27 16:16:00 [facility] [id number] [facility] 2021-05-27 15:30:00 2021-05-27 16:16:00 Office Visit eRd Daugherty, Adc Surg Spec Procedure [facility] 1..840.114 350.1.13.10 4.2.7.2.686 [id number] [facility] 2021-05-17 14:00:00 2021-05-17 14:23:19 Outpatient [facility] [id number] [facility] 2021-05-17 14:00:00 2021-05-17 14:23:19 Nurse Visit Nurse, [facility] Surgery Gu Dat [facility] 1..840.114 350.1.13.10 4.2.7.2.686 [id number] [facility] 2021-04-15 09:00:00 2021-04-15 10:22:20 Outpatient R RED DAUGHERTY [facility] [id number] [facility] 2021-04-15 09:00:00 2021-04-15 10:22:20 Office Visit [facility] 1..840.114 350.1.13.10 4.2.7.2.686 [id number] [facility] 2021-04-15 09:00:00 2021-04-15 10:22:20 Outpatient R RED DAUGHERTY [facility] [id number] [facility] 2021-04-15 09:00:00 2021-04-15 10:22:20 Outpatient R RED DAUGHERTY [facility] [id number] [facility] 2021-04-15 09:00:00 2021-04-15 09:30:00 Office Visit Red Daugherty Rm, Adc Surg Spec Procedure [facility] N[facility] 1..840.114 350.1.13.10 4.2.7.2.686 [id number] [facility] 2021-04-15 09:00:00 2021-04-15 09:00:00 Outpatient R [facility] [id number] [facility] 2021-04-15 09:00:00 2021-04-15 09:00:00 [facility] [id number] [facility] 2021-04-15 09:00:00 2021-04-15 09:00:00 [facility] [id number] [facility] 2021-04-15 09:00:00 2021-04-15 09:00:00 [facility] [id number] [facility] 2021-04-15 09:00:00 2021-04-15 09:00:00 Outpatient R [facility] [id number] [facility] 2021-04-15 00:00:00 2021-04-15 00:00:00 Orders Only Doctor Unassigned, [place] [facility] 1..840.114 350.1.13.10 4.2.7.2.686 [id number] [facility] 2021-04-03 09:30:00 2021-04-03 10:05:48 Outpatient R TERRI SHETH [facility] [id number] [facility] 2021-04-03 09:30:00 2021-04-03 09:45:00 Nurse Visit Nurse, [facility] 1.2.840.114 350.1.13.10 4.2.7.2.686 [id number] [facility] 2021-04-03 09:30:00 2021-04-03 09:30:00 Outpatient R TERRI SHETH [facility] [id number] [facility] 2021-03-28 10:00:00 2021-03-28 10:00:00 [facility] [id number] [facility] 2021-03-28 10:00:00 2021-03-28 10:00:00 [facility] [id number] [facility] 2021-03-27 00:00:00 2021-03-27 00:00:00 Telephone Dat [facility] BUILDING 1.2.840.114 350.1.13.10 4.2.7.2.686 [id number] [facility] 2021-03-20 14:15:00 2021-03-20 14:16:10 Outpatient R TERRI SHETH [facility] [id number] [facility] 2021-03-20 14:15:00 2021-03-20 14:16:10 Nurse Visit Nurse, [facility] 1.2.840.114 350.1.13.10 4.2.7.2.686 [id number] [facility] 2021-03-20 14:15:00 2021-03-20 14:16:10 Outpatient R DOMENIC TERRI [facility] [id number] [facility] 2021-02-21 15:45:00 2021-02-21 17:15:54 Outpatient R RED DAUGHERTY [facility] [id number] [facility] 2021-02-21 15:45:00 2021-02-21 17:15:54 Office Visit Red Daugherty , Adc Surg Spec [facility] 1.2.840.114 350.1.13.10 4.2.7.2.686 [id number] [facility] 2021-02-21 15:45:00 2021-02-21 17:15:54 Outpatient [facility] [id number] [facility] 2021-02-21 15:45:00 2021-02-21 17:15:54 Outpatient [facility] [id number] [facility] 2021-02-21 15:45:00 2021-02-21 17:15:54 Outpatient [facility] [id number] [facility] 2021-02-11 13:30:00 2021-02-11 14:35:32 Outpatient R RED DAUGHERTY [facility] [id number] [facility] 2021-02-11 13:30:00 2021-02-11 14:35:32 Outpatient [facility] [id number] [facility] 2021-02-11 13:30:00 2021-02-11 14:35:32 Outpatient R DAT [facility] [id number] [facility] 2021-02-11 13:30:00 2021-02-11 13:45:00 Nurse Visit Nurse, [facility] Surgery Gu Dat [facility] PROFESSIO NAL BUILDING 1.2.840.114 350.1.13.10 4.2.7.2.686 [id number] [facility] 2021-02-11 13:30:00 2021-02-11 13:30:00 Outpatient R LUCASRED PAUL [facility] [id number] [facility] 2021-02-11 00:00:00 2021-02-11 00:00:00 Orders Only Doctor Unassigned, [place] [facility] 1.2.840.114 350.1.13.10 4.2.7.2.686 [id number] [facility] 2021-01-31 00:00:00 2021-01-31 00:00:00 Telephone LexisRed mcdaniel [facility] 1.2.840.114 350.1.13.10 4.2.7.2.686 [id number] [facility] 2021-01-28 14:06:17 2021-01-28 15:43:02 Office Visit Terri Sheth [facility] 1.2.840.114 350.1.13.10 4.2.7.2.686 [id number] [facility] 2021-01-28 14:00:00 2021-01-28 15:43:02 Outpatient R TERRI SHETH [facility] [id number] [facility] 2021-01-28 14:00:00 2021-01-28 15:43:02 Outpatient R TERRI SHETH [facility] [id number] [facility] 2021-01-28 14:00:00 2021-01-28 15:43:02 Outpatient R TERRI SHETH [facility] [id number] [facility] 2021-01-28 14:00:00 2021-01-28 15:43:02 Outpatient R TERRI SHETH [facility] [id number] [facility] 2020-08-30 00:00:00 2020-08-30 00:00:00 Orders Only Doctor Unassigned, [place] [facility] 1.2.840.114 350.1.13.10 4.2.7.2.686 [id number] [facility] 2020-07-30 15:30:00 2020-07-30 16:12:10 Outpatient R TERRI SHETH [facility] [id number] [facility] 2020-07-30 15:30:00 2020-07-30 16:12:10 Outpatient R TERRI SHETH [facility] [id number] [facility] 2020-07-30 15:29:48 2020-07-30 16:12:10 Office Visit Terri Sheth [facility] 1.2.840.114 350.1.13.10 4.2.7.2.686 [id number] [facility] 2020-07-30 15:30:00 2020-07-30 15:30:00 Outpatient R TERRI SHETH [facility] [id number] [facility] 2020-06-20 13:30:00 2020-06-20 14:53:03 Outpatient R TERRI SHETH [facility] [id number] [facility] 2020-06-20 13:30:00 2020-06-20 14:53:03 Outpatient R TERRI SHETH [facility] [id number] [facility] 2020-06-20 13:27:48 2020-06-20 14:53:03 Office Visit Terri Sheth [facility] Building 1.2.840.114 350.1.13.10 4.2.7.2.686 [id number] [facility] 2020-06-20 13:30:00 2020-06-20 13:30:00 Outpatient R DOMENIC TERRI [facility] [id number] [facility] 2020-06-20 00:00:00 2020-06-20 00:00:00 Orders Only Doctor Unassigned, [place] [facility] 1..840.114 350.1.13.10 4.2.7.2.686 [id number] [facility] 2020-05-07 14:15:00 2020-05-07 15:21:54 [facility] [id number] [facility] 2020-05-07 14:15:00 2020-05-07 15:21:54 Outpatient R DAT [facility] [id number] [facility] 2020-05-07 14:11:00 2020-05-07 15:21:54 Office Visit Dat [facility] Building 1..840.114 350.1.13.10 4.2.7.2.686 [id number] [facility] 2020-05-07 14:15:00 2020-05-07 14:15:00 Outpatient R DAT [facility] [id number] [facility] 2020-04-24 14:00:00 2020-04-24 14:07:17 Outpatient R DAT [facility] [id number] [facility] 2020-04-24 14:00:00 2020-04-24 14:07:17 Outpatient R DAT [facility] [id number] [facility] 2020-04-24 14:00:00 2020-04-24 14:07:17 Outpatient R DAT [facility] [id number] [facility] 2020-04-24 14:00:00 2020-04-24 14:00:00 Outpatient R [facility] [id number] [facility] 2020-04-23 00:00:00 2020-04-23 00:00:00 Telephone Dat [facility] Building 1..840.114 350.1.13.10 4.2.7.2.686 [id number] [facility] 2020-04-06 14:00:00 2020-04-06 14:00:00 Outpatient R [facility] [id number] [facility] 2020-04-06 14:00:00 2020-04-06 10:04:45 Outpatient [facility] [id number] [facility] 2020-04-06 14:00:00 2020-04-06 10:04:45 Outpatient R DAT [facility] [id number] [facility] 2020-04-06 09:54:12 2020-04-06 10:04:45 Nurse Visit Nurse, [facility] 1..840.114 350.1.13.10 4.2.7.2.686 [id number] [facility] 2020-03-15 11:00:00 2020-03-15 12:14:34 Outpatient R DAT [facility] [id number] [facility] 2020-03-15 11:00:00 2020-03-15 12:14:34 Outpatient R DAT [facility] [id number] [facility] 2020-03-15 10:54:44 2020-03-15 12:14:34 Nurse Visit Nurse, [facility] 1.2.840.114 350.1.13.10 4.2.7.2.686 [id number] [facility] 2020-03-15 11:00:00 2020-03-15 11:00:00 Outpatient R [facility] [id number] [facility] 2020-03-15 00:00:00 2020-03-15 00:00:00 Orders Only Doctor Unassigned, [place] [facility] 1..840.114 350.1.13.10 4.2.7.2.686 [id number] [facility] 2020-03-12 14:00:00 2020-03-12 14:34:26 [facility] [id number] [facility] 2020-03-12 14:00:00 2020-03-12 14:34:26 Outpatient R DAT [facility] [id number] [facility] 2020-03-12 13:35:40 2020-03-12 14:34:26 Nurse Visit Nurse, [facility] 1.2.840.114 350.1.13.10 4.2.7.2.686 [id number] [facility] 2020-03-12 14:00:00 2020-03-12 14:00:00 Outpatient [facility] [id number] [facility] 2020-03-09 13:03:03 2020-03-09 13:28:10 Nurse Visit Nurse, [facility] 1.2.840.114 350.1.13.10 4.2.7.2.686 [id number] [facility] 2020-03-09 13:00:00 2020-03-09 13:28:10 Outpatient [facility] [id number] [facility] 2020-03-09 13:00:00 2020-03-09 13:28:10 Outpatient R DAT [facility] [id number] [facility] 2020-03-09 13:00:00 2020-03-09 13:00:00 Outpatient R [facility] [id number] [facility] 2020-02-14 00:00:00 2020-02-14 00:00:00 [facility] 1.2.840.114 350.1.13.10 4.2.7.2.686 [id number] [facility] 2020-02-07 00:00:00 2020-02-07 00:00:00 Telephone Dat [facility] Building 1.2.840.114 350.1.13.10 4.2.7.2.686 [id number] [facility] 2020-02-06 09:09:56 2020-02-06 11:03:21 Office Visit Dat [facility] 1.2.840.114 350.1.13.10 4.2.7.2.686 [id number] [facility] 2020-02-06 09:15:00 2020-02-06 09:15:00 Outpatient R DAT [facility] [id number] [facility] 2020-01-31 10:48:00 2020-02-01 13:51:00 Hospital Encounter Dat [facility] 1.2.840.114 350.1.13.10 4.2.7.2.686 [id number] [facility] 2020-01-30 14:56:15 2020-01-30 15:11:15 Laboratory Only Only, Adc Test [facility] 1.2.840.114 350.1.13.10 4.2.7.2.686 [id number] [facility] 2020-01-30 14:45:00 2020-01-30 14:45:00 Outpatient R [facility] [id number] [facility] 2020-01-30 00:00:00 2020-01-30 00:00:00 Orders Only Doctor Unassigned, [place] [facility] 1.2.840.114 350.1.13.10 4.2.7.2.686 [id number] [facility] 2020-01-18 00:00:00 2020-01-18 00:00:00 Telephone Red Daugherty [facility] nal Building 1.2.840.114 350.1.13.10 4.2.7.2.686 [id number] [facility] 2020-01-09 11:19:20 2020-01-09 13:02:24 Telemedici ne Visit Dat [facility] 1.2.840.114 350.1.13.10 4.2.7.2.686 [id number] [facility] 2020-01-09 11:30:00 2020-01-09 11:30:00 Outpatient R RED DAUGHERTY [facility] [id number] [facility] 2019-12-31 02:52:00 2019-12-31 02:52:00 Outpatient [place]-Mbayo _A_AH VFP VFP [id number] [facility] 2019-12-27 00:00:00 2019-12-27 00:00:00 Orders Only Doctor Unassigned, [place] [facility] 1.2.840.114 350.1.13.10 4.2.7.2.686 [id number] [facility] 2019-12-19 13:24:02 2019-12-19 16:03:35 Office Visit Red Daugherty Rm, Adc Surg Spec Procedure [facility] Building 1.2.840.114 350.1.13.10 4.2.7.2.686 [id number] [facility] 2019-12-19 13:30:00 2019-12-19 13:30:00 Outpatient R RED DAUGHERTY [facility] [id number] [facility] 2019-12-15 13:19:31 2019-12-15 15:37:37 Office Visit Marcin Escobedo, Ronald Uro Procedure [facility] 1.2.840.114 350.1.13.10 4.2.7.2.686 [id number] [facility] 2019-12-15 14:00:00 2019-12-15 14:00:00 Outpatient Patricia ESCOBEDO [facility] [id number] [facility] 2019-12-12 00:00:00 2019-12-12 00:00:00 Telephone [facility] 1.2.840.114 350.1.13.10 4.2.7.2.686 [id number] [facility] 2019-12-08 14:51:56 2019-12-09 09:27:14 Office Visit Marcin Escobedo, Ronald Uro Procedure [facility] 1.2.840.114 350.1.13.10 4.2.7.2.686 [id number] [facility] 2019-12-08 14:00:00 2019-12-08 14:00:00 Outpatient MARCIN YU [facility] [id number] [facility] 2019-12-05 00:00:00 2019-12-05 00:00:00 Transition of Care [place] 1.2.840.114 350.1.13.10 4.2.7.2.686 [id number] [facility] 2019-11-29 17:47:00 2019-12-02 16:54:00 Hospital Encounter Tunde Lopez [facility] 1.2.840.114 350.1.13.10 4.2.7.2.686 [id number] [facility] 2019-11-29 00:00:00 2019-11-29 00:00:00 Telephone Terri Sheth [facility] Building 1.2.840.114 350.1.13.10 4.2.7.2.686 [id number] [facility] 2019-11-28 13:57:45 2019-11-28 23:59:00 Hospital Encounter Terri Sheth [facility] 1.2.840.114 350.1.13.10 4.2.7.2.686 [id number] [facility] 2019-11-28 00:00:00 2019-11-28 00:00:00 Outpatient R TERRI SHETH [facility] [id number] [facility] 2019-11-21 10:10:30 2019-11-21 12:03:21 Office Visit Dat [facility] 1.2.840.114 350.1.13.10 4.2.7.2.686 [id number] [facility] 2019-11-21 11:25:58 2019-11-21 11:40:58 Operations Officer Visit 2, Adc Lab Dat [facility] 1.2.840.114 350.1.13.10 4.2.7.2.686 [id number] [facility] 2019-11-21 10:00:00 2019-11-21 10:00:00 [facility] [id number] [facility] 2019-11-21 00:00:00 2019-11-21 00:00:00 Orders Only Doctor Unassigned, [place] [facility] 1.2.840.114 350.1.13.10 4.2.7.2.686 [id number] [facility] 2019-10-14 11:41:00 2019-10-14 11:41:00 [facility] [id number] [facility] 2019-09-13 11:00:00 2019-09-13 11:00:00 [facility] [id number] [facility] 2019-09-02 09:43:00 2019-09-02 09:43:00 [facility] [id number] [facility] 2019-09-02 09:00:00 2019-09-02 09:00:00 [facility] [id number] [facility] 2019-08-31 08:30:00 2019-08-31 08:30:00 [facility] [id number] [facility] 2019-08-25 14:00:00 2019-08-25 14:00:00 [facility] [id number] [facility] 2019-08-18 15:00:00 2019-08-18 15:00:00 [facility] [id number] [facility] 2019-04-06 07:26:00 2019-04-06 07:26:00 Outpatient [place]-Mbayo _A_AH VFP VFP [id number] [facility] Practic e Results Test Description Test Time Test Comments Results Result Co [facility]ments [facility], [id number] 20:49:00 * Test Item Value Reference Range [...] clear Lab Interpretation (test cod e = 26570-2) Normal [facility] URINALYSIS, [id number] 19:25:00 * Test Item Value Reference Range [...] U APPEAR (test code = 3267) [facility] [id number] 19:25:00 * Test Item Value Reference Range [...] U APPEAR (test code = 3267) [facility], [id number] 19:19:00 * Test Item Value Reference Range [...] U APPEAR (test code = 3267) [facility]
[2023-07-01 08:35] LABS: Absolute Eosinophils 0.1 K/uL (0-0.5); Absolute Lymphocytes (CBC) 0.6 K/uL (0.7-4.9); Absolute Monocytes 0.6 K/uL (0.1-1.3); Basophils % 0.6 % (0-1.3); Eosinophils % 1.5 % (0-4.4); Hematocrit 26.5 % (39.6-49.0); Hemoglobin 8.6 g/dL (13.6-17.9); Lymphocytes % 9.6 % (15.3-44.8); MCH 31.7 pg (27.0-35.0); MCHC 32.4 g/dL (32.0-36.0); MPV 9.7 fL (7.6-11.3); Monocytes % 9.6 % (3.3-12.3); Neutrophils % 78.7 % (41.7-73.7); Nucleated Red Blood Cells % 0.1 % (0-0); Platelets 281 thou/uL (152-406); RBC Red Blood Cell Count 2.71 M/uL (4.33-5.43); Red Cell Distribution Width 14.1 % (12.1-15.2)
[2023-07-01 08:50] LABS: PT Prothrombin Time 12.3 SECONDS (9.5-12.5); Protime INR 1.12
[2023-07-01 08:54] LABS: Specific Gravity 1.009 (1.005-1.030); Sqamous Epithelial <5 /HPF (None Seen); Urine Bacteria None Seen /HPF (<20); Urine Bilirubin NEGATIVE (Negative); Urine Blood Negative (Negative); Urine Clarity Turbid (Clear); Urine Color Colorless (Yellow); Urine Culture Reflex Order NOT NEEDED; Urine Glucose NEGATIVE (Negative); Urine Ketones NEGATIVE (Negative); Urine Micro Reflex YN NO BILL MICROSCOPIC; Urine Mucus Slight /HPF (None Seen); Urine Nitrite NEGATIVE (Negative); Urine Protein 1+ (Negative); Urine RBC <5 /HPF (None Seen); Urine Urobilinogen Normal (Normal); Urine WBC <5 /HPF (<5); Urine pH 5.5 (5.0-7.0)
--- NOTE | 2023-07-01 09:06 | RAD REPORT ---
EXAM DESCRIPTION: RAD - Chest Single View - 07/01/2023 8:56 am CLINICAL HISTORY: MALAISE Chest pain. COMPARISON: Chest Single View dated 06/13/2023; Chest Single View dated 06/10/2023 FINDINGS: Portable technique limits examination quality. The lungs are grossly clear. The heart is normal in size. No displaced fractures.Aortic atheroscleros is. IMPRESSION: No acute intrathoracic process suspected.
[2023-07-01 09:10] LABS: Albumin 2.4 g/dL (3.4-5.0); Albumin/Globulin Ratio 0.5 (1.1-1.8); Anion Gap 11.7 mEq/L (5.0-15.0); Bilirubin Direct 0.2 mg/dL (0-0.2); Bilirubin Indirect, Calculated 0.2 mg/dL (0.2-0.8); Bilirubin Total 0.4 mg/dL (0.2-1.0); Globulin 4.5 g/dL (2.3-3.5); Magnesium 2.4 mg/dL (1.6-2.4); Potassium 3.7 mEq/L (3.5-5.1); Protein, Total 6.9 g/dL (6.4-8.2); Troponin High Sensitivity 16.7 pg/mL (<58.9)
--- NOTE | 2023-07-01 09:16 | EDPHYS ---
Physician Documentation [facility] Name: Enzo Person Age: 83 yrs Sex: Male : 1940 Arrival Date: 07/01/2023 Time: 07:25 Bed 5 Private MD: ED Physician Carlos Galvez HPI: 06/30 08:27 This 83 yrs old Male presents to ER via EMS with complaints of Abnormal Lab Results. [facility] 08:27 83-year-old male with chronic back pain and anemia as well as dementia presents to the [facility] ED with chief complaint "abnormal lab results". Patient has an elevated creatinine of 7. His last admission was for acute on chronic renal insufficiency. Patient has no symptoms whatsoever. He denies headache, neck pain, shortness of breath, chest pain, abdominal pain, vomiting, diarrhea, syncope, near syncope, change in urine patterns, or any other signs or symptoms on ROS at this time.. Historical: - Allergies: 07:27 PENICILLINS; ap3 - PMHx: 07:27 Chronic back pain; Anemia; ap3 - Immunization history:: Client reports receiving the 2nd dose of the Covid vaccine. - Infectious Disease History:: Denies. - Social history:: Smoking status: Patient denies any tobacco usage or history of. ROS: 08:27 Constitutional: Negative for fever, chills, and weight loss, Eyes: Negative for injury, sp3 pain, redness, and discharge, ENT: Negative for injury, pain, and discharge, Neck: Negative for injury, pain, and swelling, Cardiovascular: Negative for chest pain, palpitations, and edema, Respiratory: Negative for shortness of breath, cough, wheezing, and pleuritic chest pain, Abdomen/GI: Negative for abdominal pain, nausea, vomiting, diarrhea, and constipation, Back: Negative for injury and pain, MS/Extremity: Negative for injury and deformity, Skin: Negative for injury, rash, and discoloration, Neuro: Negative for headache, weakness, numbness, tingling, and seizure, Psych: Negative for depression, anxiety, suicide ideation, homicidal ideation, and hallucinations, Allergy/Immunology: Negative for hives, rash, and allergies, Endocrine: Negative for neck swelling, polydipsia, polyuria, polyphagia, and marked weight changes, 08:27 All other systems are negative, Exam: 08:28 Constitutional: This is a well developed, well nourished patient who is awake, alert, sp3 and in no acute distress. Head/Face: Normocephalic, atraumatic. Eyes: Pupils equal round and reactive to light, extra-ocular motions intact. Lids and lashes normal. Conjunctiva and sclera are non-icteric and not injected. Cornea within normal limits. Periorbital areas with no swelling, redness, or edema. ENT: Nares patent. No nasal discharge, no septal abnormalities noted. External auditory canals are clear. Oropharynx with no redness, swelling, or masses, exudates, or evidence of obstruction, uvula midline. Mucous membranes moist. Neck: Trachea midline, no thyromegaly or masses palpated, and no cervical lymphadenopathy. Supple, full range of motion without nuchal rigidity, or vertebral point tenderness. No Meningismus. Chest/axilla: Normal chest wall appearance and motion. Nontender with no deformity. No lesions are appreciated. Cardiovascular: Regular rate and rhythm with a normal S1 and S2. No gallops, murmurs, or rubs. Normal PMI, no JVD. No pulse deficits. Respiratory: Lungs have equal breath sounds bilaterally, clear to auscultation and percussion. No rales, rhonchi or wheezes noted. No increased work of breathing, no retractions or nasal flaring. Abdomen/GI: Soft, non-tender, with normal bowel sounds. No distension or tympany. No guarding or rebound. No evidence of tenderness throughout. Back: No spinal tenderness. No costovertebral tenderness. Full range of motion. Skin: Warm, dry with normal turgor. Normal color with no rashes, no lesions, and no evidence of cellulitis. MS/ Extremity: Pulses equal, no cyanosis. Neurovascular intact. Full, normal range of motion. Psych: Awake, alert, with orientation to person, place and time. Behavior, mood, and affect are within normal limits. Vital Signs: 07:26 BP 143 / 77; Pulse 105; Resp 17; Temp 99.1(O); Pulse Ox 98% on R/A; Weight 56.7 kg; ap3 Height 5 ft. 7 in. ; 11:05 BP 137 / 75; Pulse 77; Resp 18; Pulse Ox 99% on R/A; rs5 12:45 BP 140 / 71; Pulse 81; Resp 18; Pulse Ox 99% ; rs5 07:26 Body Mass Index 19.58 (56.70 kg, 170.18 cm) ap3 MDM: 07:29 Patient medically screened. sp3 08:28 Data reviewed: vital signs, nurses notes, EMS record, old medical records, lab test sp3 result(s). ED course: 83-year-old male with abnormal creatinine. We will obtain old results and baseline creatinine values and disposition from there. Clinically I am not highly suspicious for outflow obstruction, UTI, pyelonephritis, kidney stone or other concerning pathology. Etiology is likely prerenal or renal. Clinically also not highly suspicious for heart failure, ACS, significant electrolyte abnormality or any other process.. 09:14 ED course: Creatinine confirmed at 7.7. Baseline creatinine on prior visit was 3. Will sp3 admit for acute on chronic renal insufficiency to hospitalist service.. 06/30 07:38 Order name: Basic Metabolic Panel; Complete Time: 09:11 3 06/30 07:38 Order name: CBC with Diff; Complete Time: 09:09 sp3 06/30 07:38 Order name: LFT's; Complete Time: 09:11 sp3 06/30 07:38 Order name: Magnesium; Complete Time: 09:11 3 06/30 07:38 Order name: NT PRO-BNP; Complete Time: 09:11 sp06/30 07:38 Order name: PT-INR; Complete Time: 09:09 sp06/30 07:38 Order name: Troponin HS; Complete Time: 09:11 3 06/30 07:38 Order name: Lactate w/ 2H reflex if indic.; Complete Time: 09:09 sp3 06/30 07:38 Order name: Lipase; Complete Time: 09:11 sp3 06/30 07:38 Order name: UAM; Complete Time: 09:09 sp3 06/30 07:38 Order name: CXR XRAY; Complete Time: 09:09 sp06/30 07:38 Order name: EKG; Complete Time: 07:39 sp3 06/30 07:38 Order name: Cardiac monitoring; Complete Time: 08:50 sp3 06/30 07:38 Order name: EKG - Nurse/Tech; Complete Time: 08:50 sp3 06/30 07:38 Order name: IV Saline Lock; Complete Time: 09:55 sp3 06/30 07:38 Order name: Labs collected and sent; Complete Time: 09:55 sp3 06/30 07:38 Order name: O2 Per Protocol; Complete Time: 08:50 sp3 06/30 07:38 Order name: O2 Sat Monitoring; Complete Time: 08:50 sp3 Administered Medications: No medications were administered Disposition Summary: 07/01/23 09:15 Hospitalization Ordered Notes: Hospitalization Status: Inpatient Admission sp3 Provider: Giacomo Blackburn sp3 Location: Telemetry/MedSurg (Inpatient) sp3 Condition: Stable sp3 Problem: an acute exacerbation sp3 Symptoms: have worsened sp3 Bed/Room Type: Standard sp3 Room Assignment: 201(07/01/23 11:30) bd Diagnosis - acute on chronic renal failure sp3 Forms: - Medication Reconciliation Form sp3 - SBAR form sp3 - Leadership Thank You Letter sp3 Signatures: Dispatcher [employer] EDAdelaide Schmidt Amanda, RN RN ap3 Carlos Galvez MD MD sp3 Corrections: (The following items were deleted from the chart) 07:39 07:39 BASIC METABOLIC PANEL+C.LAB.BRZ ordered. EDMS EDMS 07:39 07:39 CBC+H.LAB.BRZ ordered. EDMS EDMS 07:39 07:39 HEPATIC FUNCTION+C.LAB.BRZ ordered. EDMS EDMS 07:39 07:39 MAGNESIUM+C.LAB.BRZ ordered. EDMS EDMS 07:39 07:39 PROBNP+C.LAB.BRZ ordered. EDMS EDMS 07:39 07:39 PROTIME (+INR)+COAG.LAB.BRZ ordered. EDMS EDMS 07:39 07:39 Troponin High Sensitivity+C.LAB.BRZ ordered. EDMS EDMS 07:39 07:39 LACTATE+C.LAB.BRZ ordered. EDMS EDMS 07:39 07:39 LIPASE+C.LAB.BRZ ordered. EDMS EDMS 11:30 09:15 sp3 bd
--- NOTE | 2023-07-01 09:16 | ER ---
Nurse's Notes [facility] Name: Enzo Person Age: 83 yrs Sex: Male : 1940 Arrival Date: 07/01/2023 Time: 07:25 Bed 5 Private MD: Diagnosis: acute on chronic renal failure Presentation: 06/30 07:26 Chief complaint: EMS states: patient was sent by [facility] for elevated ap3 BUN and creatine levels. patient has no other complaints at this time. Coronavirus screen: At this time, the client does not indicate any symptoms associated with coronavirus-19. Ebola Screen: No symptoms or risks identified at this time. Initial Sepsis Screen: Does the patient meet any 2 criteria? No. Patient's initial sepsis screen is negative. Does the patient have a suspected source of infection? No. Patient's initial sepsis screen is negative. Risk Assessment: Do you want to hurt yourself or someone else? Patient reports no desire to harm self or others. Onset of symptoms is unknown. 07:26 Method Of Arrival: EMS: [facility] ap3 07:26 Acuity: HUMERA 3 ap3 Triage Assessment: 07:28 General: Appears in no apparent distress. comfortable, Behavior is calm, cooperative. ap3 Pain: Complains of pain in back Pain began years ago. Is chronic. Neuro: Level of Consciousness is awake, alert, obeys commands, Oriented to person, place, time, situation. Cardiovascular: Patient's skin is warm and dry. Respiratory: Airway is patent Respiratory effort is even, unlabored, Respiratory pattern is regular, symmetrical. Historical: - Allergies: 07:27 PENICILLINS; ap3 - PMHx: 07:27 Chronic back pain; Anemia; ap3 - Immunization history:: Client reports receiving the 2nd dose of the Covid vaccine. - Infectious Disease History:: Denies. - Social history:: Smoking status: Patient denies any tobacco usage or history of. Screenin:29 Abuse screen: Denies threats or abuse. Nutritional screening: No deficits noted. ap3 Tuberculosis screening: No symptoms or risk factors identified. 07:30 [facility] ED Fall Risk Assessment (Adult) History of falling in the last 3 months, rs5 including since admission No falls in past 3 months (0 pts) Confusion or Disorientation No (0 pts) Intoxicated or Sedated No (0 pts) Impaired Gait Yes (1 pt) Mobility Assist Device Used Yes (1 pt) Altered Elimination No (0 pt) Score/Fall Risk Level 0 - 2 = Low Risk Oriented to surroundings, Maintained a safe environment. Assessment: 07:30 General: Appears in no apparent distress. comfortable, Behavior is calm, cooperative. rs5 Pain: Denies pain. Neuro: Level of Consciousness is awake, alert, obeys commands, Oriented to person, place, time, situation. Cardiovascular: Patient's skin is warm and dry. Rhythm is regular. Respiratory: Airway is patent Respiratory effort is even, unlabored, Respiratory pattern is regular, symmetrical. GI: Abdomen is round non-distended, Abd is soft and non tender X 4 quads. : No signs and/or symptoms were reported regarding the genitourinary system. EENT: No signs and/or symptoms were reported regarding the EENT system. Derm: Skin is intact, Skin is pink, warm \T\ dry. Musculoskeletal: Range of motion: intact in all extremities. 08:35 Reassessment: No changes from previously documented assessment. rs5 09:56 Reassessment: Patient and/or family updated on plan of care and expected duration. Pain rs5 level reassessed. Patient is alert, oriented x 3, equal unlabored respirations, skin warm/dry/pink. 11:01 Reassessment: No changes from previously documented assessment. rs5 12:10 Reassessment: Patient and/or family updated on plan of care and expected duration. Pain rs5 level reassessed. Patient is alert, oriented x 3, equal unlabored respirations, skin warm/dry/pink. Patient states feeling better. 13:05 Reassessment: No changes from previously documented assessment. rs5 Vital Signs: 07:26 BP 143 / 77; Pulse 105; Resp 17; Temp 99.1(O); Pulse Ox 98% on R/A; Weight 56.7 kg; ap3 Height 5 ft. 7 in. ; 11:05 BP 137 / 75; Pulse 77; Resp 18; Pulse Ox 99% on R/A; rs5 12:45 BP 140 / 71; Pulse 81; Resp 18; Pulse Ox 99% ; rs5 07:26 Body Mass Index 19.58 (56.70 kg, 170.18 cm) ap3 ED Course: 07:26 Patient arrived in ED. ap3 07:27 Triage completed. ap3 07:29 Carlos Galvez MD is Attending Physician. sp3 07:29 Arm band placed on right wrist. ap3 07:29 Patient has correct armband on for positive identification. Bed in low position. Call ap3 light in reach. Side rails up X2. 07:33 Inserted saline lock: 22 gauge in right antecubital area, using aseptic technique. rs5 Blood collected. 08:25 Nurys Cherry, RN is Primary Nurse. ap3 08:49 EKG done, by ED staff, reviewed by Carlos Galvez MD. ap3 08:56 CXR XRAY In Process Unspecified. EDMS 09:01 No provider procedures requiring assistance completed. rs5 09:15 Giacomo Blackburn is Hospitalizing Provider. sp3 13:06 IV discontinued, intact, bleeding controlled, No redness/swelling at site. Pressure rs5 dressing applied. Administered Medications: No medications were administered Medication: 13:06 VIS not applicable for this client. rs5 Outcome: 09:15 Decision to Hospitalize by Provider. sp3 13:06 Admitted to Med/surg accompanied by sheila, with chart, rs5 13:06 Condition: stable 13:06 Discharge instructions given to patient, family, Instructed on discharge instructions, follow up and referral plans. Demonstrated understanding of instructions, 13:07 Patient left the ED. rs5 Signatures: Dispatcher [employer] EDOH Nurys Cherry, RN RN ap3 Carlos Galvez MD MD sp3 Karan Merlos RN RN rs5
--- NOTE | 2023-07-01 10:38 | P.HP ---
Certification for Inpatient Patient admitted to: Inpatient With expected LOS: >2 Midnights Patient will require the following post-hospital care: None Practitioner: I am a practitioner with admitting privileges, knowledge of patient current condition, hospital course, and medical plan of care. Services: Services provided to patient in accordance with Admission requirements found in Title 42 Section 412.3 of the Code of Federal Regulations Patient History Date of Service: 07/01/23 Reason for admission: Acute on chronic renal failure History of Present Illness: Enzo Izaguirre is an 83 year old male with Pmhx hypothyroidism, BPH, chronic pain, status post rhabdomyolysis who presents to the ED with chief complaint of abnormal lab values, BUN/creatinine 93/7.70, GFR 6. He was previously admitted for rhabdomyolysis, UTI, acute kidney failure (06/09-06/15) and discharged to [place] with an improved creatinine of 3.36. He reports, he [facility] with a walker and works with weights. He complains of his back hurting until he walks the halls which gets him out of the bed. On examination, he is very alert and oriented, a good historian, Neuro intact, clear lung sounds, and states he does not feel bad and would not have come to the ED but "they brought him". Intial vitals BP 143 / 77; Pulse 105; Resp 17; Temp 99.1(O); Pulse Ox 98% on R/A Laboratory Evaluation H&H stable, white blood cells 6.3, BUN/creatinine 93/7.70, GFR 36, sodium 141, potassium 3.7 Chest x-ray reports "The lungs are grossly clear. The heart is normal in size. No displaced fractures.Aortic atherosclerosis. IMPRESSION: No acute intrathoracic process suspected" Enzo will be admitted to hospitalist service for further evaluation and treatment acute on chronic renal failure, Dr. Robles consulted. Allergies Penicillins Allergy (Verified 06/10/23 18:02) Itching Home Medications: Levothyroxine [Synthroid*] 0.88 mg PO DAILY 06/14/23 Ensure Enlive 237 ml PO BID #60 can 06/16/23 Louie [Louie*] 1 pkt PO BID #60 packet 06/16/23 Medihoney [Medihoney Woundcare Gel*] 1 appl TOP DAILY #1 tube 06/16/23 Tamsulosin [Flomax*] 0.4 mg PO BEDTIME #30 cap 06/16/23 - Past Medical/Surgical History Diabetic: No -: hypothyroidism -: BPH with TURP -: TURP Psychosocial/ Personal History: Lives alone. He states he likes to lie on the floor. Daughter and ex- at bedside. - Family History Family History: Reviewed- Non-Contributory - Social History Smoking Status: Never smoker Alcohol use: No CD- Drugs: No Caffeine use: Yes Review of Systems Musculoskeletal: Back Pain Physical Examination - Physical Exam General: Alert, In no apparent distress, Oriented x3 HEENT: Atraumatic, Normocephalic, PERRLA Neck: Supple, 2+ carotid pulse no bruit, JVD not distended Respiratory: Clear to auscultation bilaterally, Normal air movement Cardiovascular: Normal pulses, Regular rate/rhythm, Normal S1 S2 Capillary refill: <2 Seconds Gastrointestinal: Normal bowel sounds, Soft and benign, Non-distended Musculoskeletal: No clubbing Integumentary: No breakdown Neurological: Normal speech, Normal strength at 5/5 x4 extr - Studies Laboratory Data (last 24 hrs) 07/01/23 07/01/23 07/01/23 08:10 08:10 08:10 WBC 6.30 Hgb 8.6 L Hct 26.5 L Plt Count 281 PT 12.3 INR 1.12 Sodium 141 Potassium 3.7 BUN 93 H Creatinine 7.70 H Glucose 99 Magnesium 2.4 Total Bilirubin 0.4 AST 17 ALT 28 Alkaline Phosphatase 56 Lipase 61 Assessment and Plan - Plan Assessment and Plan Acute on Chronic renal failure History of rhabdomyolysis -BUN/creatinine 93/7.70, GFR 6 -BNP 5556 -Nephrology consulted -Gentle IVF -accurate I and O -Encourage PO hydration History of Chronic back pain History of Hypothyroidism History of BPH -continue home medications History of anemia -H/H 8.6/26.5 stable -Monitor in AM labs DVT ppx heparin/SCD Full code LOS 2 days Discharge Plan: Custodial Plan to discharge in: 48 Hours - Advance Directives Does patient have a Living Will: No Does patient have a Durable POA for Healthcare: No
[2023-07-01] MEDS: NACHLORIDE 0.45% 1,000 ML IV SCH (15:48)
[2023-07-01 16:54] VITALS: BMI 19.5
[2023-07-01] MEDS: HEPARIN 5000 UNIT/ML 1 ML VIAL SQ SCH (17:23)
[2023-07-01] MEDS: JUVEN PACKET PO SCH (21:00)
[2023-07-01] MEDS: ACETAMINOPHEN 325 MG TABLET PO PRN (21:48)
[2023-07-01] MEDS: ENSURE ENLIVE 237 ML CAN PO SCH (21:48)
[2023-07-01] MEDS: TAMSULOSIN 0.4 MG SR CAP PO SCH (21:48)
[2023-07-02 07:18] LABS: Absolute Eosinophils 0.2 K/uL (0-0.5); Absolute Lymphocytes (CBC) 0.9 K/uL (0.7-4.9); Absolute Monocytes 0.7 K/uL (0.1-1.3); Absolute Neutrophil 4.2 K/uL (1.8-8.0); Basophils % 0.6 % (0-1.3); Eosinophils % 2.9 % (0-4.4); Hematocrit 22.8 % (39.6-49.0); Hemoglobin 7.6 g/dL (13.6-17.9); Lymphocytes % 14.8 % (15.3-44.8); MCH 32.6 pg (27.0-35.0); MCHC 33.4 g/dL (32.0-36.0); MCV 97.5 fL (80-100); MPV 9.5 fL (7.6-11.3); Monocytes % 11.2 % (3.3-12.3); Neutrophils % 70.5 % (41.7-73.7); Nucleated Red Blood Cells % 0.1 % (0-0); Platelets 257 thou/uL (152-406); RBC Red Blood Cell Count 2.34 M/uL (4.33-5.43); Red Cell Distribution Width 14.2 % (12.1-15.2)
[2023-07-02 07:44] LABS: Anion Gap 12.9 mEq/L (5.0-15.0); Magnesium 2.2 mg/dL (1.6-2.4); Phosphorus 5.1 mg/dL (2.5-4.9); Potassium 3.9 mEq/L (3.5-5.1)
--- NOTE | 2023-07-02 09:33 | P.PN ---
Date of Service: 07/02/23 Subjective Awake and c/o back pain uncomfortable ROS 10 point ROS as noted above, otherwise negative Physical Exam General: AAOx3, NAD, uncomfortable HEENT: Atraumatic, Normocephalic, PERRLA Neck: Supple, 2+ carotid pulse no bruit, JVD not distended Respiratory: Clear to auscultation bilaterally, Normal air movement Cardiovascular: Normal pulses, Regular rate/rhythm, Normal S1 S2, no murmur noted Capillary refill: <2 Seconds Gastrointestinal: Normal bowel sounds, Soft and benign, Non-distended : navas Musculoskeletal: No clubbing Integumentary: Right buttock and left lateral knee wound Neurological: Normal speech, Normal strength at 5/5 x4 extr Vitals Reviewed Problem list Acute on Chronic renal failure History of rhabdomyolysis Right buttock and left lateral knee wound History of Chronic back pain History of Hypothyroidism History of BPH Assessment and Plan Acute on Chronic renal failure Severe bilateral hydronephrosis and hydroureter 2/2 BPH History of rhabdomyolysis -BUN/creatinine 93/4.60, GFR 7- minimal improvement -BNP 5556 -Nephrology consulted -Gentle IVF -accurate I and O: 1100 UOP -Encourage PO hydration -Doctor Lucien consulted -Navas placed with 1100 UOP Right buttock and left lateral knee wound -wound care consult -Pressure offloading History of Chronic back pain Lucency at L4-L5 suspect infection/spondyodiscitis -CT abd/pelvis finding History of Hypothyroidism History of BPH -continue home medications History of anemia -H/H 7.6/22.8 -Monitor in AM labs DVT ppx heparin/SCD Full code LOS 2 days Discharge Plan: Residential Plan to discharge in: 48 Hours
[2023-07-02] MEDS: NA CHLORIDE 0.9% 1,000 ML IV ONE (11:03)
[2023-07-02] MEDS: LEVOTHYROXINE SOD 0.088 MG TAB PO SCH (11:04)
--- NOTE | 2023-07-02 11:06 | RAD REPORT ---
EXAM DESCRIPTION: US - Renal Ultrasound-Complete - 07/02/2023 10:49 am CLINICAL HISTORY: Acute renal insufficiency COMPARISON: May 2023 FINDINGS: The right kidney measures 13 centimeters with mild cortical thinning. Marked hydronephrosi s without significant change. The left kidney measures 13 centimeters with a normal echotexture. Marked hydronephrosis without sign ificant change. The bladder is distended. The prostate gland is enlarged IMPRESSION: Marked bilateral hydronephrosis without significant change. This could be the result of a chronic bladder outlet obstruction.
[2023-07-02] MEDS: MEDIHONEY 44 ML TOPICAL TUBE TOP SCH (11:25)
[2023-07-02] MEDS: EPOETIN ALFA-EPBX 10,000 UNIT/ML VIAL SQ SCH (11:49)
[2023-07-02] MEDS: NACHLORIDE 0.45% 1,000 ML IV SCH (12:40)
[2023-07-02] MEDS ORDERED: COLLAGENASE 30 GM OINTMENT TOP SCH (14:00)
--- NOTE | 2023-07-02 15:38 | RAD REPORT ---
EXAM DESCRIPTION: CT - Abdomen Pelvis Wo Contrast - 07/02/2023 3:27 pm CLINICAL HISTORY: Abdominal pain. Bilateral hydronephrosis, enlarged prostate. COMPARISON: Abdomen Pelvis Wo Contrast dated 06/11/2023; Renal Ultrasound-Complete dated 07/02/2023; Renal Ultrasound-Complete dated 06/10/2023 TECHNIQUE: CT imaging of the abdomen and pelvis was performed without contrast. Solid organ, bowel a nd vascular assessment is limited due to lack of IV and oral contrast. All CT scans are performed using dose optimization technique as appropriate and may include automated exposure control or mA/KV adjustment according to patient size. FINDINGS: Trace bilateral pleural effusion.Linear atelectasis in the right lung base. Small hiatal h ernia. The liver, spleen, pancreas, adrenal glands are within normal limits for a limited non-contrast exami nation.Severe bilateral hydronephrosis and hydroureter is present. Prostate gland is significantly en larged. Shell catheter is present near bladder. No bowel obstruction, free air, free fluid or abscess. Significant stool is retained in the colon. Th e appendix is normal. Cholelithiasis. Lucency has developed in the inferior endplate of L4 and the superior endplate of L5 since the prior study. IMPRESSION: Severe bilateral hydronephrosis and hydroureter is present presumably resulting from chr onic bladder outlet obstruction. Prostate gland is very enlarged. A Shell catheter decompresses urina ry bladder. Lucency has developed centered at the L4-5 level since 06/11/2023. This is concerning for infection/s pondylodiscitis. Recommend MRI lumbar spine with contrast for further evaluation. Cholelithiasis. A limited non-contrast examination was performed as detailed.
--- NOTE | 2023-07-02 16:32 | P.PN ---
Date of Service: 07/02/23 I was asked to see this patient in regards to a wound that may need surgical debridement. She is not on the floor right now. We will debrided at the bedside tomorrow if the patient is agreeable.
--- NOTE | 2023-07-02 17:17 | CON ---
Date of Consultation: 07/02/2023 Reason For Consultation: Elevated BUN and creatinine, fluid management. History Of Present Illness: This is a pleasant 83-year-old gentleman with significant past medical h istory of hypothyroidism, benign prostate hypertrophy, status post TURP. The patient was in his [facility] state of health, recently admitted to the hospital with acute kidney injury. At that time, found to have obstructive uropathy. Shell was inserted and kidney function has improved. Upon admission, it was 6.8. Upon discharge, he was down to 3.3. The patient was discharged to the care home. F oley was discontinued. The patient is complaining of difficulty ambulating. Lab as outpatient was d one, found elevation in BUN and creatinine. For that reason, the patient was sent back. The patient is complaining of weakness and low back pain. The patient was started on IV hydration. No signific ant improvement in the kidney function. Past Medical History: Includes: 1.Hypothyroidism. 2.Benign prostate hypertrophy. Past Surgical History: Includes TURP. Family History: Include hypertension. Social History: Denied smoking. Denied drinking. Denied drugs abuse. Review of Systems: Head and Neck: No red eye, no ear pain. GI: Decreased intake, losing weight. : No polyuria, no dysuria, no hematuria. The patient used to have Shell on previous admission. PARTS PULLER: Not applicable. Respiratory: No shortness of breath. Cardiovascular: No chest pain. Endocrine: No polydipsia. Skin: No rash. No itching. Neuro: Has weakness, difficulty ambulating. Musculoskeletal: Low back pain. Physical Examination: Vital Signs: When I saw the patient, blood pressure 124/56, pulse of 82, afebrile. The patient had void of 300. Chest: Clear to auscultation. Heart: S1, S2. Systolic murmur. Abdomen: Soft, nontender. Dullness in the suprapubic area. No guarding or rebound. Extremities: No edema. Neuro: Alert. No focality. Laboratory Data: Sodium 138, potassium 3.9, bicarb 20, BUN 93, creatinine 7.6, calcium 7.5. Phospho yefri 5.1, magnesium 2.2. Albumin 2.4. Current Medications: The patient is on include: 1.Flomax. 2.Tylenol. 3.Levothyroxine. 4.IV fluid at 75 per hour. Assessment And Plan: 1.Acute kidney injury, possible secondary to obstructive uropathy to rule out rhabdomyolysis or ____ . I am going to go ahead and send for renal ultrasound and we will monitor the patient's respo nse. Increase IV fluid. We will send for CK and uric acid and PC ratio. We will send for PTH to ev aluate more on the chronicity. 2.Hypertension, controlled, optimal. Please avoid any JARED inhibitor or ARB. 3.Anemia of chronic kidney disease. The patient had a workup before and his iron saturation was 34. I am going to resume EDDIE. 4.Serum protein electrophoresis at that time was done and it was negative for any M spike. I do not see the need to send for repeated serology for the time being as it is done last admission and all n egative. I agree with Flomax. 5.Hypertension, controlled, optimal. Continue current treatment. Please avoid any JARED inhibitor or ARB. 6.Hypernatremia secondary to dehydration. Start IV fluids. 7.Hypokalemia. I am going to avoid any supplement for the time being. 8.Secondary hyperparathyroidism. No need for calcitriol. EMORY Voice ID: [id number] Report ID: [id number]
[2023-07-03] MEDS: LEVOTHYROXINE SOD 0.088 MG TAB PO SCH (05:59)
[2023-07-03 07:37] LABS: Absolute Eosinophils 0.2 K/uL (0-0.5); Absolute Lymphocytes (CBC) 1.1 K/uL (0.7-4.9); Absolute Monocytes 0.7 K/uL (0.1-1.3); Absolute Neutrophil 3.8 K/uL (1.8-8.0); Basophils % 0.6 % (0-1.3); Eosinophils % 3.4 % (0-4.4); Hematocrit 22.4 % (39.6-49.0); Hemoglobin 7.4 g/dL (13.6-17.9); Lymphocytes % 19.4 % (15.3-44.8); MCH 32.1 pg (27.0-35.0); MCV 97.1 fL (80-100); MPV 9.7 fL (7.6-11.3); Monocytes % 11.9 % (3.3-12.3); Neutrophils % 64.7 % (41.7-73.7); Nucleated Red Blood Cells % 0.2 % (0-0); Platelets 256 thou/uL (152-406); Red Cell Distribution Width 13.7 % (12.1-15.2)
[2023-07-03 08:00] LABS: Anion Gap 10.9 mEq/L (5.0-15.0); Phosphorus 3.8 mg/dL (2.5-4.9); Potassium 3.9 mEq/L (3.5-5.1); Thyroid Stimulating Hormone 1.91 uIU/mL (0.358-3.740); Uric Acid 6.2 mg/dL (3.5-7.2)
--- NOTE | 2023-07-03 12:08 | P.PN ---
Date of Service: 07/03/23 Subjective Awake, oriented Denies complaints No acute events overnight ROS 10 point ROS as noted above, otherwise negative Physical Exam General: AAOx3, NAD, uncomfortable HEENT: Atraumatic, Normocephalic, PERRLA Neck: Supple, 2+ carotid pulse no bruit, JVD not distended Respiratory: Clear to auscultation bilaterally, Normal air movement Cardiovascular: Normal pulses, Regular rate/rhythm, Normal S1 S2, no murmur noted Capillary refill: <2 Seconds Gastrointestinal: Normal bowel sounds, Soft and benign, Non-distended : navas in place Musculoskeletal: No clubbing Integumentary: Right buttock and left lateral knee wound Neurological: Normal speech, Normal strength at 5/5 x4 extr Vitals Reviewed Problem list 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 Severe bilateral hydronephrosis and hydroureter 2/2 BPH History of rhabdomyolysis Right buttock and left lateral knee wound History of Chronic back pain History of Hypothyroidism Assessment and Plan 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 Severe bilateral hydronephrosis and hydroureter 2/2 BPH History of rhabdomyolysis Navas in place Nephrology consulted/following Continue IVF, monitor chemistry daily CR slowly improving Right buttock and left lateral knee wound Wound care consult Pressure offloading History of Chronic back pain Lucency at L4-L5 suspect infection/spondyodiscitis Continue PRN pain meds History of Hypothyroidism History of BPH Continue home medications History of anemia Monitor H/H daily DVT ppx heparin/SCD Full code LOS 2-3 days Discharge Plan: [facility] <Dion Kwok - Last Filed: 07/03/23 12:02> Patient seen and examined. Plan of care discussed with Dion Kwok. I agree with above assessment and plan. Renal function slightly improved compared to yesterday. CT abdomen and pelvis reported severe bilateral hydronephrosis and hydroureter and significantly enlarged prostate. Bladder decompressed with Navas catheter in place. Case discussed with urology Dr. Mcgraw who recommended monitoring with IV hydration and maintaining the Navas catheter, and anticipating response to renal function after couple of days. General surgery Dr. Coulter input regarding right hip wound is appreciated. Dr. Coulter recommend chemical debridement recommended and possible surgical debridement. <jun garcía - Last Filed: 07/03/23 16:33>
--- NOTE | 2023-07-03 14:44 | EKG ---
Test Date: 2023-07-01 Test Time: 08:47:51 Educational Institution Curator: [facility] MEASUREMENT RESULTS: Intervals: Rate: 97 [place]: 166 QRSD: 80 QT: 356 QTc: 452 [place]: P: 91 [place]: 166 QRS: 56 T: 96 INTERPRETIVE STATEMENTS: Sinus rhythm with premature ventricular complexes or fusion complexes Nonspecific ST and T wave abnormality Abnormal ECG Compared to ECG 06/10/2023 13:15:54 Fusion complex(es) now present Ventricular premature complex(es) now present Short [place] interval no longer present ST (T wave) deviation still present Electronically Signed On 07-03-23 14:38:55 CDT by Joe Ruiz
--- NOTE | 2023-07-03 15:25 | P.CNS ---
Date of Consult: 07/03/23 PC: I was asked to see this 83-year-old male in regards to a lesion on his left hip. HPC: Patient is here in the hospital. Has an area on the left hip consistent with a pressure ulcer on that area. PMHx: Renal failure, rhabdomyolysis Social Hx: Allergic to penicillin Sys R: States he is in relatively good health, is able to get up and ambulate, O/E: Awake alert vitals are stable, seems oriented compared to yesterday when he was out HEENT: Negative Chest: Chest movement equal bilaterally Abd: Soft [place]: On the right side of his buttock, has an area measuring approximately 4 inches x 1-1/2 inch this looks like a pressure sore. There is some necrotic area in the central portion however it is closed, not draining, at this time. Impression: Wound on left Plan: Patient is currently getting Medihoney to the area. Will continue with this. Will allow the wound to demarcate. Will most likely be debrided in another couple days time. He may however be discharged home if his medical condition is improved, and be followed at the wound care center.
[2023-07-03] MEDS ORDERED: POTASSIUM 25 MEQ EFFERV TAB PO ONE (19:30)
[2023-07-03] MEDS: POTASSIUM 25 MEQ EFFERV TAB PO ONE (20:47)
--- NOTE | 2023-07-03 23:56 | CON ---
Date of Consultation: 07/03/2023 Reason For Consultation: Nephrology consultation was requested because of abnormal kidney function tests, BUN and creatinine were elevated. History Of Present Illness: The patient has significant past medical history of hypothyroidism, benign prostatic hypertrophy status post TURP. The patient was in his usual state of health until recently. He was admitted to the hospital with acute kidney injury. At that time, he was found to have obstructive uropathy. Shell was inserted and kidney function improved. Upon admission serum creatinine was 6.8 and went down to 3.3. The patient was discharged to the half-way. Shell was discontinued. The patient was complaining of difficulty with ambulation and voiding. Lab work was done. The patient was found to have elevated BUN and creatinine in level. The patient is complaining of back pain. He is started on IV fluids for hydration to treat acute kidney injury. Past Medical History: Hypothyroidism, benign prostatic hypertrophy. Past Surgical History: Status post TURP. Review of Systems: Denies chest pain, palpitation. Physical Examination: Lungs: Clear to auscultation bilaterally. Heart: S1, S2. Abdomen: Soft, benign, nontender. No rebound. No guarding. Extremities: No edema. Laboratory Data: BUN 93, creatinine 7.6, sodium 138, potassium 3.9, phosphorus 5.1, albumin 2.4. Impression And Plan: 1. Acute kidney injury due to obstructive uropathy. Plan is to rule out rhabdomyolysis. The patient was scheduled to have a renal ultrasound to check for any evidence of obstructive uropathy. The patient likely has acute tubular necrosis and he will continue IV fluids to prevent renal hypoperfusion. Lab work was scheduled to do a CK level to rule out rhabdomyolysis. 2. Hypertension, controlled. Avoid JARED inhibitor and avoid angiotensin receptor chuck. 3. Anemia of chronic disease. The patient to resume EDDIE. Monitor iron saturation. 4. Serum protein electrophoresis was done and it was negative for M spike and continue to monitor. 5. Bladder outlet obstruction. The patient will continue Flomax. Monitor bladder scan for an evidence of urinary retention. 6. Hypernatremia secondary to dehydration. IV fluids were started. Encourage p.o. intake. 7. Secondary hyperparathyroidism. Monitor. At this point, the patient does not need calcitriol. EB/MODL Voice ID: [id number] Report ID: [id number] MTDD
[2023-07-04 03:00] LABS: UR PROTEIN 93.9 mg/dL (<11.9); Urine Protein/Creatinine Ratio 3.91 ratio (<0.15)
[2023-07-04 06:12] LABS: Absolute Eosinophils 0.3 K/uL (0-0.5); Absolute Lymphocytes (CBC) 1.3 K/uL (0.7-4.9); Absolute Monocytes 0.8 K/uL (0.1-1.3); Absolute Neutrophil 4.8 K/uL (1.8-8.0); Basophils % 0.5 % (0-1.3); Eosinophils % 3.7 % (0-4.4); Hematocrit 22.5 % (39.6-49.0); Hemoglobin 7.3 g/dL (13.6-17.9); Lymphocytes % 18.3 % (15.3-44.8); MCH 31.6 pg (27.0-35.0); MCHC 32.4 g/dL (32.0-36.0); MCV 97.4 fL (80-100); Monocytes % 11.2 % (3.3-12.3); Neutrophils % 66.3 % (41.7-73.7); Platelets 275 thou/uL (152-406); RBC Red Blood Cell Count 2.31 M/uL (4.33-5.43); Red Cell Distribution Width 13.8 % (12.1-15.2)
[2023-07-04 06:24] LABS: Albumin 1.9 g/dL (3.4-5.0); Anion Gap 9.8 mEq/L (5.0-15.0); Magnesium 1.9 mg/dL (1.6-2.4); Phosphorus 3.2 mg/dL (2.5-4.9); Potassium 3.8 mEq/L (3.5-5.1)
--- NOTE | 2023-07-04 06:46 | RAD REPORT ---
EXAM DESCRIPTION: US - Renal Ultrasound-Complete - 07/04/2023 5:25 am CLINICAL HISTORY: hydronephrosis COMPARISON: Abdomen Pelvis Wo Contrast dated 07/02/2023; Renal Ultrasound-Complete dated 07/02/2023 FINDINGS: The right kidney measures 12.2 cm. Severe right-sided hydronephrosis persists. Renal corti krish thinning. The left kidney measures 12.1 cm. Severe left-sided hydronephrosis persists. Renal cortical thinning. The bladder is decompressed via Shell catheter. IMPRESSION: Severe bilateral hydronephrosis which is similar to 07/02/2023. The bladder is decompressed via Shell catheter.
[2023-07-04 07:33] LABS: Ferritin 340.3 ng/mL (26-388)
[2023-07-04] MEDS: POTASSIUM CL SA 10 MEQ TAB PO ONE (09:13)
--- NOTE | 2023-07-04 09:49 | P.PN ---
Date of Service: 07/04/23 Subjective Awake, oriented Denies complaints No acute events overnight ROS 10 point ROS as noted above, otherwise negative Physical Exam General: AAOx3, NAD, uncomfortable HEENT: Atraumatic, Normocephalic, PERRLA Neck: Supple, 2+ carotid pulse no bruit, JVD not distended Respiratory: Clear to auscultation bilaterally, Normal air movement Cardiovascular: Normal pulses, Regular rate/rhythm, Normal S1 S2, no murmur noted Capillary refill: <2 Seconds Gastrointestinal: Normal bowel sounds, Soft and benign, Non-distended : navas in place Musculoskeletal: No clubbing Integumentary: Right buttock and left lateral knee wound Neurological: Normal speech, Normal strength at 5/5 x4 extr Vitals Reviewed Problem list 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 Severe bilateral hydronephrosis and hydroureter 2/2 BPH History of rhabdomyolysis Anemia of chronic disease Right buttock and left lateral knee wound History of Chronic back pain History of Hypothyroidism Assessment and Plan 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 Severe bilateral hydronephrosis and hydroureter 2/2 BPH History of rhabdomyolysis Navas in place Nephrology consulted/following Continue IVF, monitor chemistry daily CR continues to improve slowly Anemia of chronic disease Hemoglobin trending down Denies melena, hematochezia or history of anemia Monitor H&H daily Iron studies ordered Right buttock and left lateral knee wound Wound care consult Pressure offloading General surgery following History of Chronic back pain Lucency at L4-L5 suspect infection/spondyodiscitis Continue PRN pain meds History of Hypothyroidism History of BPH Continue home medications DVT ppx heparin/SCD Full code LOS 2-3 days Discharge Plan: [facility] <Dion Kwok - Last Filed: 07/04/23 09:44> Patient seen and examined. Plan of care discussed with Dion Kwok. Severe bilateral hydronephrosis. Lower urinary tract obstruction with obstructive uropathy. Acute on chronic renal failure Plan: Navas catheter is in place Serum creatinine is improving slowly with IV fluid Continue to monitor renal function Urologist to evaluate if no significant improvement in renal function over the next 24 to 48 hours. Nephrology is following. General surgery input regarding right buttock wound is appreciated. Continue local wound care. <jun garcía - Last Filed: 07/04/23 18:02>
[2023-07-04] MEDS: HYDROCODONE/APAP 5/325 MG TAB PO PRN (17:51)
[2023-07-05 07:11] LABS: Absolute Eosinophils 0.3 K/uL (0-0.5); Absolute Lymphocytes (CBC) 1.1 K/uL (0.7-4.9); Absolute Monocytes 0.7 K/uL (0.1-1.3); Absolute Neutrophil 4.9 K/uL (1.8-8.0); Basophils % 0.6 % (0-1.3); Eosinophils % 3.8 % (0-4.4); Hematocrit 22.8 % (39.6-49.0); Hemoglobin 7.6 g/dL (13.6-17.9); Lymphocytes % 16.3 % (15.3-44.8); MCH 32.5 pg (27.0-35.0); MCHC 33.5 g/dL (32.0-36.0); MPV 9.2 fL (7.6-11.3); Monocytes % 9.5 % (3.3-12.3); Neutrophils % 69.8 % (41.7-73.7); Nucleated Red Blood Cells % 0.4 % (0-0); Platelets 280 thou/uL (152-406); RBC Red Blood Cell Count 2.35 M/uL (4.33-5.43); Red Cell Distribution Width 13.8 % (12.1-15.2)
[2023-07-05 07:26] LABS: Anion Gap 11.3 mEq/L (5.0-15.0); Magnesium 1.9 mg/dL (1.6-2.4); Phosphorus 3.4 mg/dL (2.5-4.9); Potassium 4.3 mEq/L (3.5-5.1)
--- NOTE | 2023-07-05 09:56 | P.PN ---
Date of Service: 07/05/23 Subjective Doing well, no complaints ROS 10 point ROS as noted above, otherwise negative Physical Exam General: AAOx3, NAD, uncomfortable HEENT: Atraumatic, Normocephalic, PERRLA Neck: Supple, 2+ carotid pulse no bruit, JVD not distended Respiratory: Clear to auscultation bilaterally, Normal air movement Cardiovascular: Normal pulses, Regular rate/rhythm, Normal S1 S2, no murmur noted Capillary refill: <2 Seconds Gastrointestinal: Normal bowel sounds, Soft and benign, Non-distended : navas in place Musculoskeletal: No clubbing Integumentary: Right buttock and left lateral knee wound Neurological: Normal speech, Normal strength at 5/5 x4 extr Vitals Reviewed Problem list 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 Severe bilateral hydronephrosis and hydroureter 2/2 BPH History of rhabdomyolysis Anemia of chronic disease Right buttock and left lateral knee wound History of Chronic back pain History of Hypothyroidism Assessment and Plan 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 Severe bilateral hydronephrosis and hydroureter 2/2 BPH History of rhabdomyolysis Navas in place Nephrology consulted/following Continue IVF, monitor chemistry daily CR continues to improve slowly down to 5.5 today Renal US still with JULIETH hydro Anemia of chronic disease Hemoglobin trending down Denies melena, hematochezia or history of anemia Monitor H&H daily, stable thus far Mild iron deficiency as well Right buttock and left lateral knee wound Wound care consult Pressure offloading General surgery following History of Chronic back pain Lucency at L4-L5 suspect infection/spondyodiscitis Continue PRN pain meds History of Hypothyroidism History of BPH Continue home medications DVT ppx heparin/SCD Full code LOS 2-3 days Discharge Plan: [facility] <Dion Kwok - Last Filed: 07/05/23 09:54> Patient seen and examined. Plan of care discussed with Dion Kwok. Patient has no new complain. Renal function continue to improve with IV hydration and relief of lower urinary tract obstruction with Navas catheter. Nephrology input appreciated Continue to monitor renal function. Case discussed with urology Dr. Mcgraw who plans to reevaluate patient if no significant improvement in his renal function occur. <jun garcía - Last Filed: 07/05/23 16:43>
[2023-07-05 20:55] LABS: Specific Gravity 1.008 (1.005-1.030); Sqamous Epithelial None Seen /HPF (None Seen); Urine Bacteria <20 /HPF (<20); Urine Bilirubin NEGATIVE (Negative); Urine Blood Trace (Negative); Urine Clarity Clear (Clear); Urine Color Colorless (Yellow); Urine Culture Reflex Order REFLEXED; Urine Glucose TRACE (Negative); Urine Ketones NEGATIVE (Negative); Urine Micro Reflex YN NO BILL MICROSCOPIC; Urine Microscopic Reflex YN ORDER UMIC; Urine Nitrite NEGATIVE (Negative); Urine Protein TRACE (Negative); Urine RBC <5 /HPF (None Seen); Urine Urobilinogen Normal (Normal)
[2023-07-05] MEDS: AZTREONAM 1 GM in NA CHLORIDE 0.9% 100 ML IV SCH (22:37)
[2023-07-06 07:03] LABS: Eosinophils % 2.6 % (0-4.4); Lymphocytes % 14.4 % (15.3-44.8); MCH 32.4 pg (27.0-35.0); MCHC 33.3 g/dL (32.0-36.0); MCV 97.2 fL (80-100); MPV 8.8 fL (7.6-11.3); Monocytes % 12.1 % (3.3-12.3); Neutrophils % 70.4 % (41.7-73.7); Platelets 319 thou/uL (152-406); RBC Red Blood Cell Count 2.47 M/uL (4.33-5.43); Red Cell Distribution Width 13.6 % (12.1-15.2)
[2023-07-06 07:04] LABS: Absolute Eosinophils 0.2 K/uL (0-0.5); Absolute Lymphocytes (CBC) 1.2 K/uL (0.7-4.9); Basophils % 0.5 % (0-1.3); Nucleated Red Blood Cells % 0.1 % (0-0)
[2023-07-06 07:16] LABS: Anion Gap 9.9 mEq/L (5.0-15.0); Magnesium 1.7 mg/dL (1.6-2.4); Phosphorus 3.5 mg/dL (2.5-4.9); Potassium 3.9 mEq/L (3.5-5.1)
--- NOTE | 2023-07-06 07:28 | RAD REPORT ---
EXAM DESCRIPTION: RAD - Chest Single View - 07/06/2023 7:23 am CLINICAL HISTORY: fever Chest pain. COMPARISON: Chest Single View dated 07/01/2023; Chest Single View dated 06/13/2023; Chest Single View dated 06/10/2023 FINDINGS: Portable technique limits examination quality. The lungs are grossly clear. The heart is mildly prominent. No displaced fractures. IMPRESSION: No acute intrathoracic process suspected.
[2023-07-06] MEDS: MAGNESIUM SULFATE 1 gm IVPB 1 GM/100 ML BAG IV ONE (08:41)
[2023-07-06] MEDS: POTASSIUM CL SA 10 MEQ TAB PO ONE (08:41)
--- NOTE | 2023-07-06 10:15 | P.PN ---
Date of Service: 07/06/23 Subjective Slowly improving had fevers recently ROS 10 point ROS as noted above, otherwise negative Physical Exam General: AAOx3, NAD, uncomfortable HEENT: Atraumatic, Normocephalic, PERRLA Neck: Supple, 2+ carotid pulse no bruit, JVD not distended Respiratory: Clear to auscultation bilaterally, Normal air movement Cardiovascular: Normal pulses, Regular rate/rhythm, Normal S1 S2, no murmur noted Capillary refill: <2 Seconds Gastrointestinal: Normal bowel sounds, Soft and benign, Non-distended : navas in place Musculoskeletal: No clubbing Integumentary: Right buttock and left lateral knee wound Neurological: Normal speech, Normal strength at 5/5 x4 extr Vitals Reviewed Problem list 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 Severe bilateral hydronephrosis and hydroureter 2/2 BPH History of rhabdomyolysis Fever Anemia of chronic disease Right buttock and left lateral knee wound History of Chronic back pain History of Hypothyroidism Assessment and Plan 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 Severe bilateral hydronephrosis and hydroureter 2/2 BPH History of rhabdomyolysis Navas in place Nephrology consulted/following Continue IVF, monitor chemistry daily CR continues to improve slowly down to 5.5 today Renal US still with JULIETH hydro Fever Fever TMAX 101.4 on 07/04 and 101 on 07/03 2 sets of blood cultures ordered 07/04 will follow UA obtained 07/04 with leuk esterase and WBC CXR negative Await cultures started on empiric Azactam lactate was 1 07/04 Anemia of chronic disease Hemoglobin stable Denies melena, hematochezia or history of anemia Monitor H&H daily Mild iron deficiency as well Right buttock and left lateral knee wound Wound care consult Pressure offloading General surgery following History of Chronic back pain Lucency at L4-L5 suspect infection/spondyodiscitis Continue PRN pain meds History of Hypothyroidism History of BPH Continue home medications DVT ppx heparin/SCD Full code LOS 2-3 days Discharge Plan: Long-Term <Dion Kwok - Last Filed: 07/06/23 10:12> Patient seen and examined. Plan of care discussed with Dion Kwok. Overall patient's serum creatinine has improved from 7.7 to 5.4 over several days of IV fluid with Navas catheter in place. He has good urine output and appears to be polyuric. Urine has been clear. Continue IV hydration, nephrology is following. Urology consulted regarding the bilateral hydronephrosis. Patient experienced intermittent fever. Prior UA did not suggest UTI. Blood cultures are pending. Patient started on Azactam. Dr. Coulter input regarding right hip/buttock wound appreciated. Continue local wound care for right hip wound. <jun garcía - Last Filed: 07/06/23 14:41>
--- NOTE | 2023-07-06 13:44 | PN ---
Date of Progress Note: 07/04/2023 Chief Complaint: Acute kidney injury, obstructive uropathy, hydronephrosis, volume depletion. Funeral Planner consultation was requested for acute on chronic kidney injury. The patient has multiple medical problems, previous history of acute kidney injury secondary to obstructive uropathy. The patient has benign prostatic hypertrophy, underwent TURP; history of bladder outlet obstruction , urinary retention, has a Shell catheter for bladder outlet obstruction. He was started on IV fluids for hypovolemia and acute kidney injury secondary to prerenal azotemia and nonoilguric acute tubular necrosis. Renal function has improved somewhat, although patient has severe hyperazotemia. He does not have uremic symptomatology. Patient is admitted to the hospital because of generalized weakness. He was found to have acute kidney injury on chronic advanced kidney disease and he had urinary retention and Shell catheter was inserted during this admission, patient has nonoliguric urine output . The patient was found to have bilateral hydronephrosis and I consulted urologist. The patient will be seen by Urologist. The patient was in his usual state of health until previous admission several weeks ago for acute kidney injury. Subsequently, Shell catheter was inserted and during previous admission serum creatinine level improved from 6.8 to 3.3. Subsequently, patient was discharged to the senior living and catheter was removed when he was transferred to senior living. Patient was complaining of difficulty with ambulating and voiding. He was found to have elevated BUN and creatinine. Shell catheter was inserted during current admission and he is on IV fluids for hydration to treat volume depletion and to control acute kidney injury. ROS : no chest pain , no cough, no flank pain , no hematuria, no fever, no chills Physical Examination: Lungs clear to auscultation bilaterally. Abdomen: Soft. Extremities: No edema. Impression And Plan: 1. Acute kidney injury due to obstructive uropathy, Shell catheter was inserted during this admission to control urinary retention and acute on chronic obstructive uropathy, CK level was done to rule out rhabdomyolysis. There is no evidence of rhabdomyolysis. The patient is on IV fluids for volume depletion and acute kidney injury. Plan is to continue IV fluids and to monitor renal panel. Avoid NSAID. 2. Hypertension, avoid ACEI , ARB due to acute kidney injury and risk of accelerated kidney failure and hyperkalemia in this particular patient . 3. Hypovolemia. IV fluids started. The patient is tolerating IV fluids. Continue IV fluids to treat volume depletion, patient was encouraged to increase p.o. fluid intake. Secondary hyperparathyroid. Monitor phosphorus, calcium level. Continue renal diet. 4. Bladder outlet obstruction. Patient was previously seen by Urologist, Urology consultation was requested, plan is to continue a Shell catheter and IV fluids . Monitor lab work. Avoid nephrotoxic medication , avoid IV contrast. 35 Anemia of chronic disease. The patient may benefit from EDDIE. Monitor iron saturation. Serum protein electrophoresis was done and was negative for M spike. Continue to monitor CBC and iron study. EB/MODL Voice ID: [id number] Report ID: [id number] MAX
--- NOTE | 2023-07-06 13:47 | CON ---
Nephrology Date of service : 07/05/2023 Family Welfare Social Work Professor consultation was requested for acute on chronic kidney injury. The patient has multiple medical problems, previous history of acute kidney injury secondary to obstructive uropathy. The patient has benign prostatic hypertrophy, underwent TURP; history of bladder outlet obstruction , urinary retention, has a Shell catheter for bladder outlet obstruction. He was started on IV fluids for hypovolemia and acute kidney injury secondary to prerenal azotemia and nonoilguric acute tubular necrosis. Renal function has improved somewhat, although patient has severe hyperazotemia. He does not have uremic symptomatology. Physical Examination: Lungs clear to auscultation bilaterally. Abdomen: Soft. Extremities: No edema. Impression And Plan: 1. Acute kidney injury due to obstructive uropathy, Shell catheter was inserted during this admission to control urinary retention and acute on chronic obstructive uropathy, CK level was done to rule out rhabdomyolysis. There is no evidence of rhabdomyolysis. The patient is on IV fluids for volume depletion and acute kidney injury. Plan is to continue IV fluids and to monitor renal panel. Avoid NSAID. 2. Hypertension, avoid ACEI , ARB due to acute kidney injury and risk of accelerated kidney failure and hyperkalemia in this particular patient . 3. Hypovolemia. IV fluids started. The patient is tolerating IV fluids. Continue IV fluids to treat volume depletion, patient was encouraged to increase p.o. fluid intake. Secondary hyperparathyroid. Monitor phosphorus, calcium level. Continue renal diet. 4. Bladder outlet obstruction. Patient was previously seen by Urologist, Urology consultation was requested, plan is to continue a Shell catheter and IV fluids . Monitor lab work. Avoid nephrotoxic medication , avoid IV contrast. EB/MODL Voice ID: [id number] Report ID: [id number] MAX
--- NOTE | 2023-07-06 13:59 | PN ---
Date of Progress Note: 07/06/2023 Chief Complaint: Acute kidney injury on advanced chronic kidney disease, obstructive uropathy, bladd er outlet obstruction. Subjective: The patient had significant medical history related to acute kidney injury due to obstru ctive uropathy. The patient has advanced chronic kidney disease. The patient previously was admitte d for acute kidney injury and serum creatinine level improved from 6.8 to 3.3. Subsequently, he was discharged to home and Shell catheter was discontinued at the long term. The patient had difficul ty with ambulation and voiding, was referred to the hospital. He was found to have elevated BUN and creatinine. Creatinine level was 7.6, BUN 93. He was started on IV fluids for hypovolemia and acute kidney injury. Review of Systems: Denies chest pain, palpitation. Physical Examination: Lungs: Clear to auscultation bilaterally. Heart: S1, S2. Abdomen: Soft benign. Extremities: No edema. Impression And Plan: 1.Acute kidney injury due to obstructive uropathy. The patient had workup done to rule out rhabdomy olysis. Ultrasound showed bilateral hydronephrosis. Urology consultation is pending. Continue Fole y catheter. 2.Hypertension. Avoid JARED inhibitor. Avoid angiotensin receptor chuck. 3.Anemia of chronic kidney disease. Continue EDDIE according to hemoglobin level. 4.Serum protein electrophoresis was done and it was negative for M spike. Continue to monitor proteinuria, electrolytes, and renal panel. Continue IV fluids. TOM/KD Voice ID: [id number] Report ID: [id number]
[2023-07-06] MEDS ORDERED: COLLAGENASE 30 GM OINTMENT TOP SCH (16:34)
[2023-07-07 04:33] LABS: Hematocrit 22.9 % (39.6-49.0); Hemoglobin 7.7 g/dL (13.6-17.9); MCH 32.7 pg (27.0-35.0); MCHC 33.6 g/dL (32.0-36.0); MCV 97.4 fL (80-100); Platelets 315 thou/uL (152-406); RBC Red Blood Cell Count 2.36 M/uL (4.33-5.43); Red Cell Distribution Width 13.7 % (12.1-15.2)
[2023-07-07 04:42] LABS: Albumin 1.9 g/dL (3.4-5.0); Anion Gap 9.3 mEq/L (5.0-15.0); Phosphorus 2.9 mg/dL (2.5-4.9); Potassium 4.3 mEq/L (3.5-5.1)
--- NOTE | 2023-07-07 09:03 | RAD REPORT ---
EXAM DESCRIPTION: US - Renal Ultrasound-Complete - 07/07/2023 8:45 am CLINICAL HISTORY: Abdominal pain/hydronephrosis COMPARISON: July 04, 2023 FINDINGS: The right kidney measures 10 cm with a normal echotexture. The degree of hydronephrosis campos s diminished. It is now moderate. 1.3 centimeter cyst. The left kidney measures 8 cm with a normal echotexture. Moderate left hydronephrosis has diminished. 1.9 centimeter cyst Marked prostatic enlargement. A Shell catheter has been placed into the bladder which is collapsed IMPRESSION: Moderate bilateral hydronephrosis which has significantly diminished in caliber since prior exam
[2023-07-07] MEDS: Ringers Lactate 0 ML IV ONE (11:53)
[2023-07-07] MEDS: Ringers Lactate 1,000 ML IV ONE (11:57)
--- NOTE | 2023-07-07 13:24 | P.PN ---
Date of Service: 07/07/23 Subjective Slowly improving had fevers recently Going for stent placement with urology today ROS 10 point ROS as noted above, otherwise negative Physical Exam General: AAOx3, NAD, uncomfortable HEENT: Atraumatic, Normocephalic, PERRLA Neck: Supple, 2+ carotid pulse no bruit, JVD not distended Respiratory: Clear to auscultation bilaterally, Normal air movement Cardiovascular: Normal pulses, Regular rate/rhythm, Normal S1 S2, no murmur noted Capillary refill: <2 Seconds Gastrointestinal: Normal bowel sounds, Soft and benign, Non-distended : navas in place Musculoskeletal: No clubbing Integumentary: Right buttock and left lateral knee wound Neurological: Normal speech, Normal strength at 5/5 x4 extr Vitals Reviewed Problem list 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 Severe bilateral hydronephrosis and hydroureter 2/2 BPH History of rhabdomyolysis Fever Anemia of chronic disease Right buttock and left lateral knee wound History of Chronic back pain History of Hypothyroidism Assessment and Plan 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 Severe bilateral hydronephrosis and hydroureter 2/2 BPH History of rhabdomyolysis Navas in place Nephrology consulted/following Urology plans for stenting for persistent DWIGHT/hydronephrosis Continue IVF, monitor chemistry daily CR continues to improve slowly down to 5.0 today Fever Fever TMAX 101.4 on 07/04 and 101 on 07/03 2 sets of blood cultures ordered 07/04 with NGTD UA obtained 07/04 with leuk esterase and WBC-urine culture with no growth CXR negative started on empiric Azactam lactate was 1 07/04 ID following Anemia of chronic disease Hemoglobin stable Denies melena, hematochezia or history of anemia Monitor H&H daily Mild iron deficiency as well Right buttock and left lateral knee wound Wound care consult Pressure offloading General surgery following History of Chronic back pain Lucency at L4-L5 suspect infection/spondyodiscitis Continue PRN pain meds History of Hypothyroidism History of BPH Continue home medications DVT ppx heparin/SCD Full code LOS 2-3 days Discharge Plan: Custodial
[2023-07-07] MEDS ORDERED: propofoL 200 MG/20 ML VIAL IV ONE (13:29)
[2023-07-07] MEDS ORDERED: FENTANYL CITR 100 MCG/2 ML ONE (13:29)
[2023-07-07] MEDS ORDERED: LIDOCAINE 1% MPF 5 ML VIAL ONE (13:29)
[2023-07-07] MEDS ORDERED: Phenylephrine HCl 10 MG/ML 1 ML VIAL ONE (14:21)
--- NOTE | 2023-07-07 15:20 | P.CNS ---
Date of Consult: 07/07/23 Reason for Consult: Persistent bilateral hydronephrosis Chief Complaint: Acute on chronic renal failure History of Present Illness: 83-year-old gentleman known to me from prior admission 06/10/2023, poor historian with hypothyroidism and remote history of TURP, who was found down with rhabdomyolysis and DWIGHT associated with massive prostatomegaly and bilateral massive hydroureteronephrosis. After a period of catheterization, the hydronephrosis did resolve, and patient was discharged home with a catheter. I spoke to his daughter today, who explained he was under the care of the urologist at [facility]. However despite this, he is in a nursing facility, and the physician at the nursing facility decided to remove the urethral Shell catheter and give him a voiding trial. It is not clear if the patient was successfully able to void, but he presented to the emergency department within a day or 2 of that event with massively distended bladder and bilateral hydroureteronephrosis observed on CT scan. A urethral Shell catheter was placed, and has been in place since his most recent admission 07/01/2023; however despite this, he has persistence of the bilateral hydroureteronephrosis. Since that time, serial ultrasounds have been obtained which revealed persistence of the hydronephrosis. I ordered an additional ultrasound today, since the most recent ultrasound was several days ago and relatively soon after the catheter had been placed, and while there was some improvement, there was persistence of the bilateral hydronephrosis. 06/11/2023 urine culture Klebsiella pneumoniae resistant to ampicillin. Patient with a penicillin allergy On review of the ultrasound imaging, I could clearly see dilatation of the ureters near the kidneys and also at the level of the bladder on ultrasound of the bladder. Additionally, during this time, the patient's kidney function was slow to improve. Patient on aztreonam, but no significant improvement in the hydronephrosis as occurred. As a result, I made the following recommendations: Assessment and recommendation: 83-year-old gentleman with history of prior TURP and potentially also prostate cancer, per his daughter, with persistent outlet obstruction/voiding dysfunction resulting in massive urinary retention and bilateral hydroureteronephrosis with acute on chronic kidney disease failing to improve despite urethral Shell catheterization. -I counseled the patient and subsequently his daughter, that I recommended an attempt at bilateral ureteral stenting. I explained that on review of the imaging, the obstruction was at the level of the bladder/detrusor, and that the thickening associated with the chronic distention and inflammation of the bladder was likely contributing to the ongoing obstruction. I further explained to the daughter and the patient separately that given the failure to improve his kidney function and the length of time of obstruction, intervention was recommended to try to reverse the kidney injury and prevent progression to chronic kidney disease and failure needing dialysis. -I counseled both the patient and the daughter that a ureteral stent would be placed bilaterally if possible, and if a stent could not be placed, a percutaneous nephrostomy tube would be recommended. -While the patient had clear capacity and the ability to understand and state back why the procedure was being done, the daughter expressed concerns about not being present to sign the consent suggesting he did not have capacity. She suggested that she was seeking power of real estate associate attorney at this time in court, but that is yet to be granted. As a result, I explained to the patient's daughter that this procedure was in the best interest of the patient, and since he had capacity to make his own decisions and sign his own consent, we would proceed. I asked if she understood the impetus and indication for the procedure, and ultimately she expressed she did. -I counseled the patient who provided consent on the risks of urethral stricture associated with cystoscopy, infection, and inability to be able to place a stent requiring percutaneous nephrostomy tube placement. Allergies Penicillins Allergy (Verified 06/10/23 18:02) Itching Home Medications: Levothyroxine [Synthroid*] 0.88 mg PO DAILY 06/14/23 Ensure Enlive 237 ml PO BID #60 can 06/16/23 Louie [Louie*] 1 pkt PO BID #60 packet 06/16/23 Medihoney [Medihoney Woundcare Gel*] 1 appl TOP DAILY #1 tube 06/16/23 Tamsulosin [Flomax*] 0.4 mg PO BEDTIME #30 cap 06/16/23 - Past Medical/Surgical History Diabetic: No -: hypothyroidism -: BPH with TURP -: TURP Psychosocial/ Personal History: Lives alone. He states he likes to lie on the floor. Daughter and ex- at bedside. - Social History Alcohol use: No CD- Drugs: No Caffeine use: Yes Place of Residence: [facility] Physical Examination Temp Pulse Resp BP Pulse Ox 97.9 F 98 H 14 138/50 L 97 07/07/23 15:03 07/07/23 15:03 07/07/23 15:10 07/07/23 15:03 07/07/23 12:00 - Problems (1) Acquired ureterovesical junction (UVJ) obstruction Current Visit: Yes Status: Acute (2) DWIGHT (acute kidney injury) Current Visit: No Status: Acute (3) Bilateral hydronephrosis Current Visit: No Status: Acute (4) Urinary retention Current Visit: No Status: Acute Critical Care: No Time Spent Managing Pts care (In Minutes): 45
--- NOTE | 2023-07-07 15:42 | P.OP ---
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 Chronic cystitis Gross hematuria Principal procedures: Cystoscopy Right retrograde pyelography Complicated right 7 Serbian by 24 cm ureteral stent placement Left retrograde pyelography Complicated left attempted 7 Serbian by 26 ureteral stent placement Successful complicated left 6 Serbian by 26 cm ureteral stent placement Fulguration of prostatic bleeding Urethral Shell catheter placement Indication for procedure: 83-year-old gentleman with history of prior TURP and potentially also prostate cancer, per his daughter, with persistent outlet obstruction/voiding dysfunction resulting in massive urinary retention and bilateral hydroureteronephrosis with acute on chronic kidney disease failing to improve despite urethral Shell catheterization secondary to ongoing UVJ obstruction. Procedure note: The patient was consented in the preoperative holding area before being transferred to the operative suite where general anesthesia was induced. He was being treated with aztreonam on the floor, and pneumoboots were provided for DVT prophylaxis. He was placed in the lithotomy position, padded and secured to the table appropriately. His genitalia was prepped with Hibiclens and he was draped in standard fashion after the urethral Shell catheter was removed. The case was begun using a 22 Serbian rigid cystoscope to traverse the urethra and into his bladder. The bladder was decompressed of fluid and urine and surveyed. There was massive trabeculation of the detrusor throughout with numerous cellules, and evidence of cystitis throughout with hemorrhagic papules numerous throughout his bladder. Small residual or regrowth of adenomatous tissue at the level of the median bar/median lobe was present and intravesically intruding. Ureteral orifices were not visible. As a result, I employed a 5 Serbian ureteral access catheter and the tip of the sensor wire in order to search in the probable region of the ureteral orifices kind of gently palpating any hole or pit seen within the mucosa looking for an opening that might represent entry into the ureteral orifice. After extensive search initially on the right and then subsequently on the left, I was able to gain access into the right ureteral orifice and perform a retrograde pyelography study. Right retrograde pyelogram: Using a 70: 30 mixture of Omnipaque and saline, contrast was injected via the lumen of the 5 Serbian ureteral access catheter and did propagate into the distal ureter where it made a point of obstruction and tortuosity before I was able to advance the 5 Serbian ureteral access catheter further into the ureter and ultimately get the contrast to navigate up a markedly tortuous ureter before entering a markedly dilated renal pelvis with caliectasis. I then attempted to pass the sensor wire up the ureter, but it met points of obstruction along the way causing it to coil and turned back down toward the orifice. With constant manipulation and advancing the 5 Serbian ureteral access catheter further into the mid and proximal ureter and subsequently advancing the sensor wire over it, after several attempts I was successful with getting the wire to coil within the renal pelvis and calyces on the right. As a result, I remove the 5 Serbian ureteral access catheter leaving the wire in place and then passed over the wire a 7 Serbian by 24 cm double-J ureteral stent. A coil was formed fluoroscopically in the patient's kidney and renal pelvis on the right, and 1 cystoscopically was formed in the bladder. I then turned my attention to the patient's left side where I again began searching using the tip of the sensor wire and the 5 Serbian ureteral access catheter to find a pit that was ultimately reflective of the presence of the ureteral orifice. Eventually, we did find a spot where the wire did propagate up and I was able to advance the 5 Serbian ureteral access catheter into the opening. Left retrograde pyelography: Using a 70: 30 mixture of Omnipaque and saline, again I injected contrast via the lumen of the 5 Serbian ureteral access catheter and observe the contrast refluxed back into the bladder after going a few centimeters into the distal ureter. I was able to advance the 5 Serbian ureteral access catheter further into the distal ureter and again injected contrast, this time getting the contrast to go beyond the point of tortuosity related obstruction and into the mid and proximal ureter. Contrast on this occasion did not enter the renal pelvis, but as I got another bolus of contrast and again checked spot fluoroscopic imagery, contrast had indeed entered the renal pelvis and calyces indicating a massively hydronephrotic system. There was extensive tortuosity of the ureter along the way causing a great degree of obstruction. As a result, I again went through a series of manipulations advancing the 5 Serbian ureteral access catheter and manipulating the sensor wire ultimately until I was able to get the wire past the point of tortuosity associated obstruction and into the upper pole calyx of the kidney. Once the wire was successfully placed as evidenced fluoroscopically, I again remove the 5 Serbian ureteral access catheter and attempted to pass over the wire a 7 Serbian by 26 cm double-J ureteral stent. In this case, significant obstruction at the ureterovesical junction/ureteral orifice on the left prevented injury of the 7 Serbian catheter over the wire. After several attempts, I eventually switched to a 6 Serbian by 26 cm double-J ureteral stent, which I was able to pass successfully over the wire and ultimately into the collecting system coiling the stent fluoroscopically in the upper pole and renal pelvis on the left. An additional coil was formed cystoscopically in the patient's bladder. With both stents now in good position, I then surveyed the bladder before completing the case. Significant gross hematuria was now occurring from the median lobar tissue that was intravesically intruding and obscuring visualization of the ureteral orif ices. This was likely caused by trauma across that tissue with the cystoscope. As a result, because of the significant hematuria and clots that were forming, given the risk of subsequent anemia or clot retention, we switched to sterile water and a Bugbee electrode, and I fulgurated the extent of the median lobar tissue that was bleeding until it was completely hemostatic. Once this was done, I then replaced a 18 urethral Shell catheter into his bladder with ease and with 10 to 15 cc of sterile water in the balloon. The catheter was connected to a floor bag, and the patient was taken out of the lithotomy position. It was then awakened from general anesthesia before being transferred to a stretcher and then transferred to the recovery room in good condition. Complications: None Discharge disposition: Given the persistence of the chronic inflammation of the bladder despite treatment with aztreonam, I question the success of that particular antimicrobial and managing a chronic cystitis. Since the patient had prior Klebsiella pneumonia a that was resistant only to ampicillin and the current cultures are unrevealing, patient would likely do better, if the edge finisher agree, with a fluoroquinolone for potentially third-generation cephalosporin instead of the aztreonam. The urethral Shell catheter will need to be left in place while at least 14 to 21 days of antimicrobial therapy is allowed to resolve the cystitis and the UVJ obstruction. After this point, consideration may be given to outpatient ureteral stent removal. Further evaluation of his voiding dysfunction and u rinary retention may be performed as an outpatient.
--- NOTE | 2023-07-07 16:33 | PN ---
Date of Progress Note: 07/07/2023 Subjective: No change in clinical status. Creatinine is slowly trending down. The plan for cystosc opy. Objective: Vital Signs: Temperature 98.4, pulse rate 84, blood pressure 126/56. General: Awake and alert. Looks chronically ill. Neck: Supple. No elevated JVD. Heart: Regular rate and rhythm. Normal S1, S2. Chest: Clear to auscultation bilaterally. No rales or wheezes. Abdomen: Soft, nontender. Has a Shell catheter. Extremities: No edema. Laboratory Data: White count 8.1, hemoglobin 7.7, and platelets 315. Sodium 137, potassium 4.3, BUN 65, creatinine 5. Assessment And Plan: 1.Acute kidney injury, likely due to obstructive uropathy. Creatinine 7.7 on admission, improved to 5.5. A repeat renal ultrasound and Shell catheter also show hydronephrosis, but that is improved. A Urology consult is appreciated. Continue IV fluids at this time. 2.Obstructive uropathy, unclear etiology. Urology is following. Plan for cystoscopy. 3.Anemia of chronic disease. Monitor hemoglobin and hematocrit. Transfuse if hemoglobin less than 7. Iron saturation of 30 and . Continue p.o. iron. 4.Severe protein-calorie malnutrition. Diet as tolerated. 5.Hypothyroidism. Continue Synthroid. LISA/KD Voice ID: [id number] Report ID: [id number]
--- NOTE | 2023-07-07 16:46 | RAD REPORT ---
EXAM DESCRIPTION: RAD - Urethrocystogrphy Retrograde - 07/07/2023 3:05 pm CLINICAL HISTORY: BILAT COMPARISON: None available. FINDINGS: Twenty-six Images were sent to PACS, documenting fluoroscopy use during bilateral cystoure throgram and ureteral stent placement procedure. No radiologist was available for the procedure, nor will any image interpretation he provided. Please refer to the procedural report for additional detai ls. Fluoroscopy time: 1:12 Minutes. IMPRESSION: Documentation of fluoroscopy utilization as above.
[2023-07-07] MEDS: CEFTRIAXONE 1,000 MG in NA CHLORIDE 0.9% 50 ML IVPB SCH (16:59)
[2023-07-07] MEDS: FERROUS SULFATE 325 MG TAB PO SCH (17:00)
[2023-07-08 06:48] LABS: Hematocrit 24.4 % (39.6-49.0); Hemoglobin 7.9 g/dL (13.6-17.9); MCH 31.6 pg (27.0-35.0); MCHC 32.4 g/dL (32.0-36.0); MCV 97.5 fL (80-100); Platelets 347 thou/uL (152-406); Red Cell Distribution Width 14.1 % (12.1-15.2)
[2023-07-08 07:01] LABS: Phosphorus 2.8 mg/dL (2.5-4.9)
--- NOTE | 2023-07-08 09:52 | P.CNS ---
Date of Consult: 07/08/23 Reason for Consult: hip wound Chief Complaint: Acute on chronic renal failure History of Present Illness: 83 year old male with Pmhx hypothyroidism, BPH, chronic pain, status post rhabdomyolysis who presents to the ED with chief complaint of abnormal lab valu es, BUN/creatinine 93/7.70, GFR 6. He was previously admitted for rhabdomyolysis, UTI, acute kidney failure (06/09-06/15) and discharged to [facility] with an improved creatinine of 3.36. He reports, he walks in the hallway with a walker and works with weights. He complains of his back hurting until he walks the halls which gets him out of the bed. Admitted for CKD management. Allergies Penicillins Allergy (Verified 06/10/23 18:02) Itching Home medications list reviewed: Yes Home Medications: Levothyroxine [Synthroid*] 0.88 mg PO DAILY 06/14/23 Ensure Enlive 237 ml PO BID #60 can 06/16/23 Louie [Louie*] 1 pkt PO BID #60 packet 06/16/23 Medihoney [Medihoney Woundcare Gel*] 1 appl TOP DAILY #1 tube 06/16/23 Tamsulosin [Flomax*] 0.4 mg PO BEDTIME #30 cap 06/16/23 - Past Medical/Surgical History Diabetic: No -: hypothyroidism -: BPH with TURP -: TURP Psychosocial/ Personal History: Lives alone. He states he likes to lie on the floor. Daughter and ex- at bedside. - Social History Alcohol use: No CD- Drugs: No Caffeine use: Yes Place of Residence: [facility] Review of Systems 10-point ROS is otherwise unremarkable Physical Examination Temp Pulse Resp BP Pulse Ox 98.9 F 89 14 115/53 L 94 07/08/23 07:55 07/08/23 07:55 07/08/23 07:55 07/08/23 07:55 07/08/23 07:55 General: In no apparent distress Respiratory: Clear to auscultation bilaterally, Normal air movement Cardiovascular: No edema, Regular rate/rhythm Gastrointestinal: Normal bowel sounds, No tenderness Integumentary: Pressure ulcer (left hip ) Neurological: Other (tremors) laboratory, microbiology and imaging data reviewed Conclusions/Impression: problem list Left hip wound 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 Mcgraw - Ucx: NGTD Recommendations - Chronic cystitis: continue abx therapy x 14 days. Consider switch to cefpodoxime BID to complete a total of 14 days - Follow up with urology as outpatient in 1-2 weeks. - monitor CBC, BMP and fever trends - navas catheter care - continue local wound care - renally dose medications. case discussed with Joel Tee
--- NOTE | 2023-07-08 12:49 | P.PN ---
Date of Service: 07/08/23 Subjective Slowly improving had fevers recently Going for stent placement with urology today ROS 10 point ROS as noted above, otherwise negative Physical Exam General: AAOx3, NAD, uncomfortable HEENT: Atraumatic, Normocephalic, PERRLA Neck: Supple, 2+ carotid pulse no bruit, JVD not distended Respiratory: Clear to auscultation bilaterally, Normal air movement Cardiovascular: Normal pulses, Regular rate/rhythm, Normal S1 S2, no murmur noted Capillary refill: <2 Seconds Gastrointestinal: Normal bowel sounds, Soft and benign, Non-distended : navas in place Musculoskeletal: No clubbing Integumentary: Right buttock and left lateral knee wound Neurological: Normal speech, Normal strength at 5/5 x4 extr Vitals Reviewed Problem list 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 Severe bilateral hydronephrosis and hydroureter 2/2 BPH History of rhabdomyolysis Fever Anemia of chronic disease Right buttock and left lateral knee wound History of Chronic back pain History of Hypothyroidism Assessment and Plan 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 Severe bilateral hydronephrosis and hydroureter S/P JULIETH ureteral stent placement 07/06 History of rhabdomyolysis Navas in place, ureteral stents in place Nephrology consulted/following Continue IVF, monitor chemistry daily CR continues to improve slowly down Continue with navas catheter for 14 to 21 days while treating chronic cystitis and obstruction Outpatient follow up with urology after that to consider stent removal Fever, chronic cystitis Fever TMAX 101.4 on 07/04 and 101 on 07/03 2 sets of blood cultures ordered 07/04 with NGTD UA obtained 07/04 with leuk esterase and WBC-urine culture with no growth CXR negative Switched to rocephin 07/06 Will need 14-21 days of abx per urology for chronic cystitis lactate was 1 07/04 ID following Anemia of chronic disease Hemoglobin stable Denies melena, hematochezia or history of anemia Monitor H&H daily Mild iron deficiency as well Right buttock and left lateral knee wound Wound care consult Pressure offloading General surgery following History of Chronic back pain Lucency at L4-L5 suspect infection/spondyodiscitis Continue PRN pain meds History of Hypothyroidism History of BPH Continue home medications DVT ppx heparin/SCD Full code LOS 2-3 days Discharge Plan: Assisted
--- NOTE | 2023-07-08 13:21 | PN ---
Date of Progress Note: 07/08/2023 Subjective: The patient was admitted to the hospital with acute kidney injury secondary to obstructi ve uropathy. The patient had Shell. Patient had stent placement yesterday. Tolerated very well. Objective: Vital Signs: When I saw the patient, blood pressure 113/52, pulse of 85, afebrile. The patient had good urine output of 4500, negative of 500. Chest: Clear to auscultation. Heart: S1, S2. Regular. Abdomen: Soft, nontender. Extremity: No edema. Neuro: Alert. No focality. Laboratory Data: Hemoglobin 7.9, sodium 136, potassium 4, bicarb 20, BUN 68, creatinine down to 4.7, calcium 7.9, phosphorus 2.8, albumin 2, corrected calcium is 9.5. Current Medications: The patient on, include: 1.Ceftriaxone. 2.Flomax. 3.Tylenol. 4.Levothyroxine. 5.IV fluid. Assessment And Plan: 1.Acute kidney injury secondary to obstructive uropathy, superimposed with urinary tract infection, toxic ATN. Patient continue on the recovery. We will follow up with Urology. Continue current duran tment. The patient currently polyuric after relieving of the obstruction. I am going to continue IV fluid for the time being and we will follow up. 2.Hyponatremia, depletional. Continue hydration. 3.Hypokalemia, status post supplement, resolved. 4.Obstructive uropathy, status post stenting. Follow up with Urology. 5.Urinary tract infection. Continue current antibiotic. Follow up with ID and Primary. EMORY Voice ID: [id number] Report ID: [id number]
[2023-07-08 16:21] VITALS: O2SAT 98
[2023-07-09 05:01] LABS: Hematocrit 24.8 % (39.6-49.0); Hemoglobin 8.3 g/dL (13.6-17.9); MCH 32.7 pg (27.0-35.0); MCHC 33.5 g/dL (32.0-36.0); MCV 97.6 fL (80-100); MPV 8.7 fL (7.6-11.3); Platelets 350 thou/uL (152-406); RBC Red Blood Cell Count 2.54 M/uL (4.33-5.43); Red Cell Distribution Width 14.2 % (12.1-15.2)
[2023-07-09 05:19] LABS: Albumin 2.1 g/dL (3.4-5.0); Anion Gap 9.9 mEq/L (5.0-15.0); Phosphorus 3.6 mg/dL (2.5-4.9); Potassium 3.9 mEq/L (3.5-5.1)
[2023-07-09] MEDS: POTASSIUM CL SA 10 MEQ TAB PO ONE (09:30)
--- NOTE | 2023-07-09 10:38 | PN ---
Date of Progress Note: 07/09/2023 Subjective: The patient was admitted to the hospital with acute kidney injury secondary to obstructi ve uropathy. The patient is status post stent placement yesterday. Physical Examination: Vital Signs: When I saw the patient, blood pressure 109/54, pulse of 85, afebrile. Chest: Clear to auscultation. Heart: S1, S2 regular. Abdomen: Soft, nontender. Extremities: No edema. Neuro: Alert. No focality. Laboratory Data: Hemoglobin 8.3. Sodium 139; potassium 3.9; bicarb 20; BUN 58; creatinine 4.4, tren ding down; calcium 8. Phosphorus 3.6. Albumin 2.1. Current Medications: The patient is on include: 1.Ceftriaxone. 2.Flomax. 3.Ferrous sulfate. 4.Levothyroxine. 5.IV fluid. Assessment And Plan: 1.Acute kidney injury secondary to obstructive uropathy, status post stent placement. We will bridget nue to monitor recovery for the patient. 2.Hypertension, controlled, optimal. 3.Hypokalemia, stable. 4.Anemia of chronic kidney disease with component of iron deficiency anemia, status post IV iron. I am going to dose the patient with Epogen and we will follow up. 5.Obstructive uropathy, status post stenting. We will follow up with Urology. EMORY Voice ID: [id number] Report ID: [id number]
[2023-07-09] MEDS: EPOETIN ALFA-EPBX 10,000 UNIT/ML VIAL SQ SCH (10:42)
[2023-07-09] MEDS: POLYETHYL GLY 3350 17 GM/DOSE PO ONE (12:33)
--- NOTE | 2023-07-09 13:35 | P.PN ---
Date of Service: 07/09/23 INFECTIOUS DISEASE PROGRESS NOTE Subjective: In no apparent distress. He denies any new or worsening complaints at this time. No acute events overnight. Plan of care discussed with patient at bedside. Physical Examination Temp Pulse Resp BP Pulse Ox 97.3 F 88 15 132/59 L 99 07/09/23 11:00 07/09/23 11:00 07/09/23 11:00 07/09/23 11:00 07/09/23 11:00 General: In no apparent distress. Alert, oriented x3. Respiratory: Clear to auscultation bilaterally, Normal air movement. Unlabored respirations on room air. Cardiovascular: No edema, Regular rate/rhythm. Gastrointestinal: Normal bowel sounds, No tenderness. Non-distended. Integumentary: Left hip wound dressing c/d/i. 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 Mcgraw - Ucx: NGTD - currently on rocephin. Urology recommending 2-3 weeks of oral antibiotic therapy. Recommendations - Chronic cystitis: continue abx therapy x 14 days. Consider switch to cefp odoxime PO to complete a total of 14 days. - renally dose medications. - Follow up with urology and PCP as outpatient in 1-2 weeks. - monitor CBC, BMP and fever trends - navas catheter care - continue local wound care - fall precautions case discussed with De Tee.
--- NOTE | 2023-07-09 14:32 | P.PN ---
Date of Service: 07/09/23 Subjective Slowly improving no complaints no acute events overnight family at bedside ROS 10 point ROS as noted above, otherwise negative Physical Exam General: AAOx3, NAD, uncomfortable HEENT: Atraumatic, Normocephalic, PERRLA Neck: Supple, 2+ carotid pulse no bruit, JVD not distended Respiratory: Clear to auscultation bilaterally, Normal air movement Cardiovascular: Normal pulses, Regular rate/rhythm, Normal S1 S2, no murmur noted Capillary refill: <2 Seconds Gastrointestinal: Normal bowel sounds, Soft and benign, Non-distended : navas in place Musculoskeletal: No clubbing Integumentary:Left buttock and right lateral knee wound Neurological: Normal speech, Normal strength at 5/5 x4 extr Vitals Reviewed Problem list 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 Severe bilateral hydronephrosis and hydroureter 2/2 BPH History of rhabdomyolysis Fever Anemia of chronic disease Right buttock and left lateral knee wound History of Chronic back pain History of Hypothyroidism Assessment and Plan 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 Severe bilateral hydronephrosis and hydroureter S/P JULIETH ureteral stent placement 07/06 History of rhabdomyolysis Navas in place, ureteral stents in place Nephrology consulted/following Discussed with nephrology, will DC fluids today and monitor renal function in AM Possible DC in AM to [place] if renal function stable in AM Weekly chemistry at [place] to monitor renal function CR continues to improve slowly down Continue with navas catheter until otherwise instructed by urology Outpatient follow up with urology after that to consider stent removal non- urgent ID recommends 14 days of antibiotics ending 07/20 (14 days) can switch to cefpodoxime 200mg daily at [facility] Fever, chronic cystitis Fever TMAX 101.4 on 07/04 and 101 on 07/03 2 sets of blood cultures ordered 07/04 with NGTD UA obtained 07/04 with leuk esterase and WBC-urine culture with no growth CXR negative Switched to rocephin 07/06 Will need 14-21 days of abx per urology for chronic cystitis lactate was 1 07/04 ID following ID recommends 14 days of antibiotics ending 07/20 (14 days) can switch to cefpodoxime 200mg daily at [place] Anemia of chronic disease Hemoglobin stable Denies melena, hematochezia or history of anemia Monitor H&H daily Mild iron deficiency as well-S/P IV iron Left hip wound - continue with medihoney and foam dressing MWF - pressure offloading measures History of Chronic back pain Lucency at L4-L5 suspect infection/spondyodiscitis Continue PRN pain meds History of Hypothyroidism History of BPH Continue home medications DVT ppx heparin/SCD Full code LOS 1-2 days Discharge Plan: Shelter
[2023-07-09] MEDS: DOCUSATE NA 100 MG CAP PO SCH (21:09)
[2023-07-09] MEDS: HEPARIN 5000 UNIT/ML 1 ML VIAL SQ SCH (21:10)
[2023-07-10 03:39] LABS: Hematocrit 24.6 % (39.6-49.0); Hemoglobin 7.9 g/dL (13.6-17.9); MCH 31.7 pg (27.0-35.0); MCHC 32.3 g/dL (32.0-36.0); MCV 98.3 fL (80-100); MPV 8.8 fL (7.6-11.3); Platelets 340 thou/uL (152-406); Red Cell Distribution Width 14.2 % (12.1-15.2)
[2023-07-10 04:06] LABS: Anion Gap 8.9 mEq/L (5.0-15.0); Phosphorus 2.7 mg/dL (2.5-4.9); Potassium 3.9 mEq/L (3.5-5.1)
--- NOTE | 2023-07-10 09:10 | P.PN ---
Date of Service: 07/10/23 INFECTIOUS DISEASE PROGRESS NOTE Subjective: Denies any new/worsening complaints at this time. Fever 100.6 F recorded overnight. Physical Examination Temp Pulse Resp BP Pulse Ox 97.7 F 87 16 130/58 L 98 07/10/23 08:00 07/10/23 08:00 07/10/23 08:00 07/10/23 08:00 07/10/23 08:00 General: In no apparent distress. Alert, oriented x3. Respiratory: Clear to auscultation bilaterally, Normal air movement. Unlabored respirations on room air. Cardiovascular: No edema, Regular rate/rhythm. Gastrointestinal: Normal bowel sounds, No tenderness. Non-distended. Integumentary: Left hip wound dressing c/d/i. 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 Mcgraw - Ucx: NGTD - currently on rocephin. Urology recommending 2-3 weeks of oral antibiotic therapy. Recommendations - Chronic cystitis: continue abx therapy x 14 days. Consider switch to cefpodoxime PO to complete a total of 14 days. - renally dose medications. - Follow up with urology and PCP as outpatient in 1-2 weeks. - monitor CBC, BMP and fever trends - navas catheter care - continue local wound care - fall precautions - physical therapy case discussed with Joel Tee
--- NOTE | 2023-07-10 09:47 | RAD REPORT ---
EXAM DESCRIPTION: US - Extrem Venous W Compress Lalo - 07/10/2023 5:35 am CLINICAL HISTORY: Pain. Rule out DVT COMPARISON: None. TECHNIQUE: Real-time sonographic evaluation of the bilateral lower extremity deep venous systems was performed. FINDINGS: Normal compressibility, flow augmentation, phasic flow and spontaneous flow is identified in both the left and right lower extremity deep venous systems. No intraluminal filling defects seen. IMPRESSION: No DVT in either lower extremity.
--- NOTE | 2023-07-10 14:36 | P.PN ---
Subjective Date of Service: 07/10/23 Chief Complaint: Acute on chronic renal failure Subjective: Improving Subjective: No change in clinical status. S/p Stent placement Creatinine is slowly trending down. pending placement physical exam General: Awake and alert. Looks chronically ill. Neck: Supple. No elevated JVD. Heart: Regular rate and rhythm. Normal S1, S2. Chest: Clear to auscultation bilaterally. No rales or wheezes. Abdomen: Soft, nontender. Has a Navas catheter. Extremities: No edema. Assessment And Plan: Pt with Maryam due to obstructive uropathy cr 7.7 on admission, improved after navas placement, pt is S/p stent placement # Acute kidney injury due to obstructive uropathy. Creatinine 7.7 on admission, improved to After navas catheter insertion also s renal dose med avoid NSAID and contrast #obstructive uropathy S/p Stent placement cont Navas Cont 2-3 wek of Abx #. Anemia of chronic disease. Monitor hemoglobin and hematocrit. Transfuse if hemoglobin less than 7. Continue p.o. iron. #. Severe protein-calorie malnutrition. Diet as tolerated. #. Hypothyroidism. Continue Synthroid. Physical Examination - Vital Signs Temperature: 97.9 F Blood Pressure: 116/55 Pulse: 84 Respirations: 16 Pulse Ox (%): 98
--- NOTE | 2023-07-10 16:11 | P.PN ---
Date of Service: 07/10/23 Subjective Awake and conversing well no new complaints ROS 10 point ROS as noted above, otherwise negative Physical Exam General: AAOx3, NAD HEENT: Atraumatic, Normocephalic, PERRLA Neck: Supple, 2+ carotid pulse no bruit, JVD not distended Respiratory: Clear to auscultation bilaterally, Normal air movement, on RA Cardiovascular: RRR, Normal S1 S2, no murmur noted Capillary refill: <2 Seconds Gastrointestinal: Normal active bowel sounds, Soft and benign on palpation, Non- distended : navas in place Musculoskeletal: No clubbing Integumentary: Left buttock and right lateral knee wound Neurological: Normal speech, Normal strength at 5/5 x4 extr Vitals Reviewed Problem list 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 Severe bilateral hydronephrosis and hydroureter 2/2 BPH History of rhabdomyolysis Fever Chronic cystitis Anemia of chronic disease Right buttock and left lateral knee wound History of Chronic back pain History of Hypothyroidism Assessment and Plan 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 Severe bilateral hydronephrosis and hydroureter S/P JULIETH ureteral stent placement 07/06 History of rhabdomyolysis -Navas in place, ureteral stents in place -Nephrology consulted/following -Likely DC in AM to [place] if renal function stable and afebrile overnight -Weekly chemistry at [place] to monitor renal function -CR continues to improve slowly down -Continue with navas catheter until otherwise instructed by urology -Outpatient follow up with urology after that to consider stent removal non-urgent -ID recommends 14 days of antibiotics ending 07/20 (14 days) can switch to cefpodoxime 200mg daily at [place] Fever, chronic cystitis -Fever TMAX 101.4 on 07/04 and 101 on 07/03 -2 sets of blood cultures ordered 07/04 with NGTD -UA obtained 07/04 with leuk esterase and WBC-urine culture with no growth -CXR negative -Switched to rocephin 07/06 -Will need 14-21 days of abx per urology for chronic cystitis -lactate was 1 07/04 -ID recommends 14 days of antibiotics ending 07/20 (14 days) can switch to cefpodoxime 200mg daily at [place] Anemia of chronic disease -Hemoglobin stable -Denies melena, hematochezia or history of anemia -Monitor H&H daily -Mild iron deficiency as well-S/P IV iron Left hip wound - continue with medihoney and foam dressing MWF - pressure offloading measures History of Chronic back pain Lucency at L4-L5 suspect infection/spondyodiscitis -Continue PRN pain meds History of Hypothyroidism History of BPH -Continue home medications DVT ppx heparin/SCD Full code LOS Likely discharge in the AM Discharge Plan: Long-Term, likely discharge in the AM
[2023-07-11 03:50] LABS: Hematocrit 25.4 % (39.6-49.0); Hemoglobin 8.2 g/dL (13.6-17.9); MCH 31.8 pg (27.0-35.0); MCHC 32.5 g/dL (32.0-36.0); MCV 97.8 fL (80-100); MPV 8.7 fL (7.6-11.3); Platelets 364 thou/uL (152-406); Red Cell Distribution Width 14.5 % (12.1-15.2)
[2023-07-11 04:37] LABS: Albumin 2.1 g/dL (3.4-5.0); Anion Gap 12.1 mEq/L (5.0-15.0); Phosphorus 2.6 mg/dL (2.5-4.9); Potassium 4.1 mEq/L (3.5-5.1)
--- NOTE | 2023-07-11 09:43 | P.DS ---
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 He was previously admitted for rhabdomyolysis, UTI, acute kidney failure (06/09-06/15) and discharged to [facility] with an improved creatinine of 3.36. He reports, he walks in the hallway with a walker and works with weights. He complains of his back hurting until he walks the halls which gets him out of the bed. On examination, he is very alert and oriented, a good historian, Neuro intact, clear lung sounds, and states he does not feel bad and would not have come to the ED but "they brought him". Intial vitals BP 143 / 77; Pulse 105; Resp 17; Temp 99.1(O); Pulse Ox 98% on R/A Laboratory Evaluation H&H stable, white blood cells 6.3, BUN/creatinine 93/7.70, GFR 36, sodium 141, potassium 3.7 Chest x-ray reports "The lungs are grossly clear. The heart is normal in size. No displaced fractures.Aortic atherosclerosis. IMPRESSION: No acute intrathoracic process suspected" Enzo will be admitted to hospitalist service for further evaluation and treatment acute on chronic renal failure, Dr. Robles consulted. Hospital Course: Enzo Izaguirre is a pleasant 83-year-old male with a past medical history significant for hypothyroidism, BPH, chronic pain, status post rhabdomyolysis who was admitted to the [facility] on 07/01/2023 for abnormal lab values, elevated creatinine. Enzo Izaguirre was admitted to the hospital for acute kidney injury, he was found to have bilateral severe hydronephrosis. Initially a Navas catheter was inserted and he was treated with IV fluids with slow improvement in his renal function. Subsequent renal ultrasounds continue to demonstrate hydronephrosis and for that reason urology was consulted. On 07/06 patient underwent bilateral ureteral stent placements. His renal function continued to improve, urology recommends Navas catheter, ureteral stents remain in place at this time until follow-up with urology outpatient. Of note patient did have fever up to 101.4 on 07/04, blood and urine cultures were obtained at that time and have shown no growth. Urology/infectious disease recommend 14 days of antibiotics for chronic cystitis with cefpodoxime 200 mg by mouth daily. Additionally we recommend obtaining repeat chemistry weekly to monitor renal function. Enzo will need to follow-up outpatient with both urology and nephrology, Navas catheter should remain in place until otherwise instructed by urology. On 07/11/23, Enzo was seen on morning rounds and deemed medically stable for discharge. Enzo was discharged with instructions to schedule follow-up appointments with PCP, Dr. Mcgraw, and Dr. Robles. Enzo was provided prescriptions for Vantin. The patient and family members were given the opportunity to ask questions and reported no further questions. Furthermore, all questions were answered to the best of my ability. A copy of this discharge summary will be sent to the above providers to facilitate continuity of care. Physical Exam General: Alert and oriented x3, NAD, comfortable HEENT: Atraumatic, Normocephalic, PERRLA Neck: Supple, 2+ carotid pulse no bruit, JVD not distended Respiratory: Clear to auscultation bilaterally, Normal air movement, on RA Cardiovascular: Regular rate and rhythm, Normal S1 S2, no murmur noted Capillary refill: <2 Seconds Gastrointestinal: Normal active bowel sounds, Soft and benign on palpation, Non- distended : navas in place Musculoskeletal: No clubbing, 2+ peripheral pulses Integumentary: Left buttock and right lateral knee wound Neurological: Normal speech, Normal strength at 5/5 x4 extr Vital Signs/Physical Exam: Temp Pulse Resp BP Pulse Ox 97.8 F 91 H 16 115/56 L 99 07/11/23 04:00 07/11/23 04:00 07/11/23 04:00 07/11/23 04:00 07/11/23 04:00 Laboratory Data at Discharge: WBC 9.30 thou/uL (4.3-10.9) 07/11/23 03:25 Hgb 8.2 g/dL (13.6-17.9) L 07/11/23 03:25 Hct 25.4 % (39.6-49.0) L 07/11/23 03:25 Plt Count 364 thou/uL (152-406) 07/11/23 03:25 PT 12.3 SECONDS (9.5-12.5) 07/01/23 08:10 INR 1.12 07/01/23 08:10 Sodium 139 mEq/L (136-145) 07/11/23 03:25 Potassium 4.1 mEq/L (3.5-5.1) 07/11/23 03:25 BUN 60 mg/dL (7-18) H 07/11/23 03:25 Creatinine 4.01 mg/dL (0.70-1.30) H 07/11/23 03:25 Glucose 95 mg/dL (74-106) 07/11/23 03:25 Uric Acid 6.2 mg/dL (3.5-7.2) 07/03/23 07:05 Phosphorus 2.6 mg/dL (2.5-4.9) 07/11/23 03:25 Magnesium 2.0 mg/dL (1.6-2.4) 07/07/23 03:33 Total Bilirubin 0.4 mg/dL (0.2-1.0) 07/01/23 08:10 AST 17 U/L (15-37) 07/01/23 08:10 ALT 28 U/L (16-61) 07/01/23 08:10 Alkaline Phosphatase 56 U/L (45-117) 07/01/23 08:10 Lipase 61 U/L (13-75) 07/01/23 08:10 Home Medications: Levothyroxine [Synthroid*] 0.88 mg PO DAILY 06/14/23 Ensure Enlive 237 ml PO BID #60 can 06/16/23 Louie [Louie*] 1 pkt PO BID #60 packet 06/16/23 Medihoney [Medihoney Woundcare Gel*] 1 appl TOP DAILY #1 tube 06/16/23 Tamsulosin [Flomax*] 0.4 mg PO BEDTIME #30 cap 06/16/23 Cefpodoxime Proxetil [Vantin] 200 mg PO DAILY 14 Days #14 tab 07/09/23 New Medications: Cefpodoxime Proxetil [Vantin] 200 mg PO DAILY 14 Days #14 tab Physician Discharge Instructions: Enzo Izaguirre was admitted to the hospital for acute kidney injury, he was found to have bilateral severe hydronephrosis. Initially a Navas catheter was inserted and he was treated with IV fluids with slow improvement in his renal function. Subsequent renal ultrasounds continue to demonstrate hydronephrosis and for that reason urology was consulted. On 07/06 patient underwent bilateral ureteral stent placements. His renal function continued to improve, urology recommends Navas catheter, ureteral stents remain in place at this time until follow-up with urology outpatient. Of note patient did have fever up to 101.4 on 07/04, blood and urine cultures were obtained at that time and have shown no growth. Urology/infectious disease recommend 14 days of antibiotics for chronic cystitis with cefpodoxime 200 mg by mouth daily. Additionally we recommend obtaining repeat chemistry weekly to monitor renal function. Enzo will need to follow-up outpatient with both urology and nephrology, Navas catheter should remain in place until otherwise instructed by urology. 1. Please call and schedule a follow-up appointment with your PCP in 3-5 days - Please follow-up with your PCP for medication refills/adjustments 2. Please call and schedule a follow-up appointment with Dr. Robles in 3-5 days 3. Please call and schedule a follow-up appointment with Dr. Mcgraw in 3-5 days 4. Weekly chemistry to monitor renal function 5. Continue Renal diet 6. activity restrictions : fall precautions 7. Return to the ED if symptoms worsen Left hip wound: medihoney and foam dressing MWF, pressure offloading measures New medication Vantin 200 mg PO daily x 14 days Diet: Renal Activity: Fall precautions Followup: Bridgett Robles MD [ACTIVE - CAN ADMIT] - Tone Snell MD [Primary Care Provider] - 1-2 Weeks Melvin Mcgraw [ACTIVE - CAN ADMIT] -
[2023-07-11 10:00] VITALS: BP 110/50; TEMP 98
--- NOTE | 2023-07-11 10:48 | PN ---
Date of Progress Note: 07/11/2023 Subjective: The patient was admitted to the hospital with acute kidney injury secondary to obstructi ve uropathy. The patient had Shell placed. Patient underwent stent placement by the Urology. Nav ated the procedure very well. Kidney function continue to improve. Physical Examination: Vital Signs: When I saw the patient, blood pressure 110/50, pulse of 92, afebrile. Chest: Clear to auscultation. Heart: S1, S2. Regular. Abdomen: Soft, nontender. Extremities: No edema. Neurologic: Alert. No focality. Laboratory Data: Hemoglobin 8.2. Sodium 139, potassium 4.1, bicarb 20, BUN 60, creatinine 4, calciu m 8.1, phosphorus 2.6, albumin 2.1, corrected calcium is 9.7. Current Medications: The patient on include: 1.Ceftriaxone. 2.Flomax. 3.Tylenol. 4.Levothyroxine. Assessment And Plan: 1.Acute kidney injury secondary to obstructive uropathy, status post stent. Tolerated the procedure , doing well. Off IV fluid for the last 48 hours. The patient status post urethral stent placement with urethral Shell catheter placement. Recommended to keep the urethral Shell for 21 days. I am go ing to continue current antibiotic. Continue off IV fluid. The patient not polyuric anymore. Maint ain with oral. We will continue to monitor. 2.Hypertension, controlled optimal. Continue current treatment. 3.Urinary tract infection. Complicated urinary tract infection with urosepsis and hydronephrosis wi th acute kidney injury. Repeated UA was negative. Continue current antibiotic. Continue current tr eatment. Follow up with Urology. 4.Obstructive uropathy as above. 5.Hyponatremia, , status post supplement, resolved. MA/MODL Voice ID: [id number] Report ID: [id number]
== END 2023-07-11 12:46 | DRG 659 ==
LOC: ER 07:25 → ERHOLD 10:40 → 2ND 12:07
PROVIDERS: ADMIT Internal Medicine; ATTEND Hospitalist
PROC: 0T9B70Z Drainage of Bladder with Drainage Device, Via Natural or Artificial Opening (ICD-10-PCS; 2023-07-02)
PROC: 0V508ZZ Destruction of Prostate, Via Natural or Artificial Opening Endoscopic (ICD-10-PCS; 2023-07-07)
PROC: BT1D1ZZ Fluoroscopy of Right Kidney, Ureter and Bladder using Low Osmolar Contrast (ICD-10-PCS; 2023-07-07)
PROC: 0T788DZ Dilation of Bilateral Ureters with Intraluminal Device, Via Natural or Artificial Opening Endoscopic (ICD-10-PCS; principal; 2023-07-07 13:30)
DX: N17.0 Acute kidney failure with tubular necrosis (principal); E43 Unspecified severe protein-calorie malnutrition; E87.0 Hyperosmolality and hypernatremia; E87.1 Hypo-osmolality and hyponatremia; Z68.1 Body mass index [BMI] 19.9 or less, adult; E87.6 Hypokalemia; N13.6 Pyonephrosis; N18.32 Chronic kidney disease, stage 3b; D63.1 Anemia in chronic kidney disease; D50.9 Iron deficiency anemia, unspecified; N25.81 Secondary hyperparathyroidism of renal origin; E86.1 Hypovolemia; E03.9 Hypothyroidism, unspecified; G89.29 Other chronic pain; M54.9 Dorsalgia, unspecified; N32.0 Bladder-neck obstruction; N30.20 Other chronic cystitis without hematuria; L89.229 Pressure ulcer of left hip, unspecified stage; N40.1 Benign prostatic hyperplasia with lower urinary tract symptoms; F03.90 Unspecified dementia, unspecified severity, without behavioral disturbance, psychotic disturbance, mood disturbance, and anxiety; R33.8 Other retention of urine; R31.0 Gross hematuria; Z60.2 Problems related to living alone; Z88.0 Allergy status to penicillin; Z79.890 Hormone replacement therapy; Z79.899 Other long term (current) drug therapy
CPT/HCPCS: 36415; 51610; 71045; 74176; 74450; 76770; 80048; 80069; 80076; 81001; 81015; 82550; 82570; 82728; 82947; 83540; 83605; 83690; 83735; 83880; 84100; 84156; 84443; 84466; 84484; 84550; 85025; 85027; 85610; 87040; 87086; 87088; 93005; 93970; 97116; 97161; 97530; 99285; J0696; J1644; J2001; J2371; J2704; J3010; J3475; J3590; J7030; J7120; Q5106

== ENCOUNTER 2023-08-07 10:24 | Emergency (ER) | payer OTHER ==
--- OUTSIDE RECORDS SUMMARY | 2023-08-07 10:27 | XMS REPORT | Continuity of Care Document ---
Author Name Unknown Address [address] [facility] [place] [address] [facility] Address [address] [facility] [address] [place] [address] Care Team Providers Care Hand Salter Name Role Phone MARVIN SNELL Primary Care Physician Unavailab Marvin Arguello Attending Clinician Unavailable RED DAUGHERTY Attending Clinician Unavailable TUNDE LOPEZ Attending Clinician Unavailable GLENYS QUARLES Attending Clinician UnavailGlenys Mansfield Attending Clinician [phone] Doctor Unassigned, [facility] Attending Clinician U bhavikailRed Kaufman MD Attending Clinician [phone], [facility] Lab Attending Clinician Unavailable , [facility] Surg Spec Procedure Attending Clinician Unavailable Nurse, [facility] Surgery Gu Attending Clinician UnaTERRI Andrade Attending Clinician Unavailable Terri Jolly Attending Clinician [phone] Only, [facility] Test Attending Clinician Unavailable Hosea Alcaraz MD Attending Clinician [phone] [place]-Constance_Tom_FRANCISCO Attending Clinician Unavailable Marcin Escobedo MD Attending Clinician [phone] Room, [facility] Uro Procedure Attending Clinician UnaMARCIN Mc Attending Clinician Unavailable Jaya MCCARTY, Lisa Attending Clinician Unavailable Tunde Lopez MD Attending Clinician [phone] RED DAUGHERTY Admitting Clinician Unavailable TUNDE LOPEZ Admitting Clinician Unavailable Red Daugherty MD Admitting Clinician [phone] [place]-Mbayo_A_AH Admitting Clinician Unavailable Tunde Lopez MD Admitting Clinician [phone] Payers Payer Name Policy Type Policy Number Effective Date Expirati on Date Source ROSALIND TROTTER [id number] 2019 00:00:00 [employer] (MEDICARE REPLACEMENT/ADVANT AGE - HMO) [id number] 2019 00:00:00 Problems Condition Name Condition Details Condition Category Status Onset Date Resolution Date Last Treatment Date Treating Clinician Comments Source Urinary retention Urinary retention Disease Active 2019-02 00:00: 00 Overview: Formattin g of this note might be different from the original. 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 Problem [facility] Allergies, Adverse Reactions, Alerts Allergy Name Allergy Type Status Severity Reaction(s) Onset Date Inactive Date Treating Clinician Comments Source PENICILL IN DRUG INGREDI Active Unknown-Cmnt 2019-02 0 00:00: 00 [facility] Penicill in Propensi ty to adverse reaction s Active Unknown - See comments 2019-02 0 00:00: 00 [facility] Social History Social Habit Start Date Stop Date Quantity Comments Source History of Tobacco Use [facility] Sex Assigned At [facility] Gender identity [facility] Sexual orientation [facility] History SDOH Alcohol Std Drinks [facility] History SDOH Alcohol Binge [facility] History SDOH Alcohol Comment [facility] History of Social function 2023-03-20 00:00:00 2023-03-20 00:00:00 [facility] Alcohol intake 2023-03-20 00:00:00 2023-03-20 00:00:00 Lifetime non-drinker (finding) [facility] Exposure to SARS-CoV-2 (event) 2022-03-28 00:00:00 2022-04-07 13:24:00 Not sure [facility] Tobacco use and exposure 2021-09-18 00:00:00 2021-09-18 00:00:00 Smokeless tobacco non-user [facility] History SDOH Alcohol Frequency 2019-11-21 00:00:00 2019-11-21 00:00:00 1 [facility] Smoking Status Start Date Stop Date Source Never Smoker [facility] Medications Ordered Medication Name Filled Medication Name Start Date Stop Date Current Medication? Ordering Clinician Indication Dosage Frequency Signature (SIG) Comments Components Source tamsulosin 0.4 mg 24 hr capsule 03-20 13:56: 33 Yes .4mg 1 capsule. [facility] gentamicin injection 80 mg 2021-02 20:30: 00 11-25 19:43 :00 No [id number] 80mg [facility] Nitrofurant oin&Nit. Macrocryst (MACROBID) 100 mg capsule 2021-02 0 00:00: 00 11-26 04:59 :00 No [id number] 100mg Take 1 capsule by mouth in the morning and 1 capsule in the evening. Do all this for 7 days. [facility] sulfamethox azole-trime thoprim (BACTRIM DS) 800-160 mg per tablet 9-06 00:00: 00 10-28 04:59 :00 No [id number] 1{tbl} Take 1 tablet by mouth in the morning and 1 tablet in the evening. Do all this for 5 days. [facility] gabapentin 300 mg capsule 2019-02 00:00: 00 Yes [id number] 300mg Take 1 capsule by mouth every 8 (eight) hours as needed for Pain (scale 4-6). [facility] ibuprofen 200 mg tablet 2019-02 00:00: 00 Yes [id number] 400mg Take 2 tablets by mouth every 6 (six) hours as needed for Pain (scale 1-3). [facility] carvediloL 12.5 mg tablet 2019-02 0 00:00: 00 Yes [id number] 12.5mg Take 1 tablet by mouth 2 (two) times daily with meals. [facility] XELPROS 0.005 % dpem 09-29 00:00: 00 Yes INSTILL 1 DROP DAILY IN EACH EYE AT BEDTIME [facility] Tamsulosin HCl 0.4 MG Tamsulosin HCl 0.4 MG No 1{capsu le} QD Tamsulosin HCl 0.4 MG Levothyroxi ne Sodium 88 MCG Levothyroxi ne Sodium 88 MCG No QD Levothyrox ine Sodium 88 MCG Vital Signs Vital Name Observation Time Observation Value Comments S ource Systolic blood pressure 2023-03-20 19:57:00 146 mm[Hg] [facility] Diastolic blood pressure 2023-03-20 19:57:00 64 mm[Hg] [facility] Heart rate 2023-03-20 19:52:00 84 /min [facility] Body temperature 2023-03-20 19:52:00 36.22 Dottie [facility] Respiratory rate 2023-03-20 19:52:00 18 /min [facility] Body height 2023-03-20 19:52:00 170.2 cm [facility] Body weight 2023-03-20 19:52:00 53.706 kg [facility] BMI 2023-03-20 19:52:00 18.54 kg/m2 [facility] Oxygen saturation in Arterial blood by Pulse oximetry 2023-03-20 19:52:00 97 /min [facility] Systolic blood pressure 2022-09-03 19:31:00 153 mm[Hg] [facility] Diastolic blood pressure 2022-09-03 19:31:00 84 mm[Hg] [facility] Heart rate 2022-09-03 19:29:00 88 /min [facility] 2022-09-03 19:29:00 36.94 Dottie [facility] Respiratory rate 2022-09-03 19:29:00 18 /min [facility] Body weight 2022-09-03 19:29:00 53.071 kg [facility] BMI 2022-09-03 19:29:00 18.32 kg/m2 [facility] Oxygen saturation in Arterial blood by Pulse oximetry 2022-09-03 19:29:00 95 /min [facility] Systolic blood pressure 2022-08-06 19:33:00 141 mm[Hg] [facility] Diastolic blood pressure 2022-08-06 19:33:00 62 mm[Hg] [facility] Heart rate 2022-08-06 19:33:00 74 /min [facility] Respiratory rate 2022-08-06 19:33:00 18 /min [facility] Body height 2022-08-06 19:33:00 170.2 cm [facility] Body weight 2022-08-06 19:33:00 53.524 kg [facility] BMI 2022-08-06 19:33:00 18.48 kg/m2 [facility] Oxygen saturation in Arterial blood by Pulse oximetry 2022-08-06 19:33:00 97 /min [facility] Systolic blood pressure 2022-04-07 19:59:00 139 mm[Hg] [facility] Diastolic blood pressure 2022-04-07 19:59:00 59 mm[Hg] [facility] Heart rate 2022-04-07 19:58:00 90 /min Unive [facility] Body temperature 2022-04-07 19:58:00 36.44 Dottie [facility] Respiratory rate 2022-04-07 19:58:00 18 /min [facility] Body height 2022-04-07 19:58:00 170.2 cm [facility] Body weight 2022-04-07 19:58:00 57.516 kg [facility] BMI 2022-04-07 19:58:00 19.86 kg/m2 [facility] Oxygen saturation in Arterial blood by Pulse oximetry 2022-04-07 19:58:00 99 /min [facility] Systolic blood pressure 2022-01-06 20:43:00 165 mm[Hg] [facility] Diastolic blood pressure 2022-01-06 20:43:00 76 mm[Hg] [facility] Heart rate 2022-01-06 20:43:00 83 /min Unive [facility] Body temperature 2022-01-06 20:42:00 36.5 Dottie [facility] Respiratory rate 2022-01-06 20:42:00 16 /min [facility] Body height 2022-01-06 20:42:00 170.2 cm [facility] Body weight 2022-01-06 20:42:00 57.607 kg [facility] BMI 2022-01-06 20:42:00 19.89 kg/m2 [facility] Oxygen saturation in Arterial blood by Pulse oximetry 2022-01-06 20:42:00 100 /min [facility] Systolic blood pressure 2021-11-25 19:27:00 181 mm[Hg] [facility] Diastolic blood pressure 2021-11-25 19:27:00 76 mm[Hg] [facility] Heart rate 2021-11-25 19:26:00 82 /min Unive [facility] Body temperature 2021-11-25 19:26:00 36.44 Dottie [facility] Respiratory rate 2021-11-25 19:26:00 18 /min [facility] Body height 2021-11-25 19:26:00 170.2 cm [facility] Body weight 2021-11-25 19:26:00 55.792 kg [facility] BMI 2021-11-25 19:26:00 19.26 kg/m2 [facility] Oxygen saturation in Arterial blood by Pulse oximetry 2021-11-25 19:26:00 99 /min [facility] Body height 2021-10-30 18:27:00 170.2 cm [facility] Body weight 2021-10-30 18:27:00 53.252 kg [facility] BMI 2021-10-30 18:27:00 18.39 kg/m2 [facility] Body weight 2021-10-18 19:32:00 54.704 kg [facility] BMI 2021-10-18 19:32:00 18.89 kg/m2 [facility] Body temperature 2021-09-18 19:04:00 36.56 Dottie [facility] Respiratory rate 2021-09-18 19:04:00 18 /min [facility] Body height 2021-09-18 19:04:00 170.2 cm [facility] Body weight 2021-09-18 19:04:00 57.425 kg [facility] BMI 2021-09-18 19:04:00 19.83 kg/m2 [facility] Oxygen saturation in Arterial blood by Pulse oximetry 2021-09-18 19:04:00 97 /min [facility] Systolic blood pressure 2021-09-18 19:04:00 129 mm[Hg] [facility] Diastolic blood pressure 2021-09-18 19:04:00 76 mm[Hg] [facility] Heart rate 2021-09-18 19:04:00 90 /min [facility] Procedures Procedure Date / Time Performed Performing Clinician Source REFERRAL- REQUEST/RESPONSE 2023-03-20 06:01:00 D octor Unassigned, [facility] EXTERNAL PROVIDER RECORDS 2023-02-06 06:01:00 Do ctor Unassigned, [facility] AUTHORIZATION FOR RELEASE OF PHI 2023-01-20 06:01:00 Doctor Unassigned, [facility] DME/SUPPLY JUSTIFICATION 2022-12-26 06:01:00 Doc tor Unassigned, [facility] DME/SUPPLY JUSTIFICATION 2022-11-04 05:01:00 Doc tor Unassigned, [facility] EXTERNAL PROVIDER RECORDS 2022-09-09 05:01:00 Do ctor Unassigned, [facility] US RETROPERITONEAL COMPLETE 2022-08-08 17:39:41 Red Daugherty [facility] PATIENT FINANCIAL POLICY 2022-08-08 16:19:58 Doctor Unassigned, [facility] CONSENT/REFUSAL FOR DIAGNOSIS AND TREATMENT 2022-08-08 16:19:28 Doctor Unassigned, [facility] ASSIGNMENT OF BENEFITS 2022-08-08 16:19:08 Docto r Unassigned, [facility] AUTHORIZATION FOR RELEASE OF PHI 2022-08-05 05:01:00 Doctor Unassigned, [facility] SCANNED LAB RESULTS 2022-08-01 05:01:00 Doctor Finn randolph, [facility] POCT URINALYSIS AUTO 2022-01-06 20:48:00 Court Quarles [facility] POCT URINALYSIS AUTO 2021-11-25 19:24:00 Stalin Daugherty [facility] DISCLOSURE AND CONSENT, MEDICAL AND SURGICAL PROCEDURES 2021-11-25 05:01:00 Doctor Unassigned, [facility] POCT URINALYSIS AUTO 2021-09-18 19:18:00 Court Quarles [facility] Encounters Start Date/Time End Date/Time Encounter Type Admission Type Attending [facility] Care Facility Care Department Encounter ID Source 2023-07-01 14:30[facility] [id number] 2023-06-18 09:44:00 Outpatient Marvin Snell [facility] [id number] [facility] 2021-03-13 11:29:37 [facility] [id number] [facility] 2020-12-15 07:25:47 Outpatient RED DAUGHERTY [facility] [id number] [facility] 2020-12-14 22:47:04 Inpatient TUNDE JEFFERSON [facility] [id number] [facility] 2020-12-14 22:46:02 Emergency [facility] [id number] [facility] 2023-09-25 14:15:00 2023-09-25 14:15:00 Outpatient GLENYS SOTO [facility] [id number] [facility] 2023-07-14 00:00:00 2023-07-14 00:00:00 (TEL) [facility] [id number] [facility] 2023-06-18 00:00:00 2023-06-18 00:00:00 [id number] 2023-03-20 13:45:00 2023-03-20 14:16:26 Outpatient ARIA SOTOTNEY [facility] [id number] [facility] 2023-03-20 13:45:00 2023-03-20 14:16:26 Office Visit Glenys Quarles [facility] 1..840.114 350.1.13.10 4.2.7.2.686 [id number] [facility] 2023-03-20 00:00:00 2023-03-20 00:00:00 Orders Only Doctor Unassigned, [facility] ..840.114 350.1.13.10 4.2.7.2.686 [id number] [facility] 2023-03-11 09:15:00 2023-03-11 09:15:00 Outpatient GLENYS SOTO [facility] [id number] [facility] 2023-03-09 13:45:00 2023-03-09 13:45:00 [facility] [id number] [facility] 2023-02-06 00:00:00 2023-02-06 00:00:00 Orders Only Doctor Unassigned, [facility] 1.2.840.114 350.1.13.10 4.2.7.2.686 [id number] [facility] 2023-01-22 00:00:00 2023-01-22 00:00:00 Telephone Aria [facility] 1.2.840.114 350.1.13.10 4.2.7.2.686 [id number] [facility] 2023-01-21 00:00:00 2023-01-21 00:00:00 [facility] 1.2.840.114 350.1.13.10 4.2.7.2.686 [id number] [facility] 2023-01-20 00:00:00 2023-01-20 00:00:00 Orders Only Doctor Unassigned, [facility] 1.2.840.114 350.1.13.10 4.2.7.2.686 [id number] [facility] 2023-01-15 00:00:00 2023-01-15 00:00:00 Telephone Glenys Quarles [facility] 1.2.840.114 350.1.13.10 4.2.7.2.686 [id number] [facility] 2022-12-29 00:00:00 2022-12-29 00:00:00 Telephone Red Daugherty [facility] 1.2.840.114 350.1.13.10 4.2.7.2.686 [id number] [facility] 2022-12-26 00:00:00 2022-12-26 00:00:00 Orders Only Doctor Unassigned, [facility] 1.2.840.114 350.1.13.10 4.2.7.2.686 [id number] [facility] 2022-11-05 00:00:00 2022-11-05 00:00:00 Telephone Dat [facility] 1.2.840.114 350.1.13.10 4.2.7.2.686 [id number] [facility] 2022-11-04 00:00:00 2022-11-04 00:00:00 Orders Only Doctor Unassigned, [facility] 1.2.840.114 350.1.13.10 4.2.7.2.686 [id number] [facility] 2022-09-09 00:00:00 2022-09-09 00:00:00 Orders Only Doctor Unassigned, [facility] 1.2.840.114 350.1.13.10 4.2.7.2.686 [id number] [facility] 2022-09-03 14:15:00 2022-09-03 15:29:47 Outpatient R ROBINA [facility] [id number] [facility] 2022-09-03 14:15:00 2022-09-03 15:29:47 Office Visit Robina [facility] 1.2.840.114 350.1.13.10 4.2.7.2.686 [id number] [facility] 2022-08-08 11:20:33 2022-08-08 23:59:00 Outpatient R DAT [facility] [id number] [facility] 2022-08-08 11:20:33 2022-08-08 23:59:00 [facility] 1.2.840.114 350.1.13.10 4.2.7.2.686 [id number] [facility] 2022-08-07 00:00:00 2022-08-07 00:00:00 [facility] 1.2.840.114 350.1.13.10 4.2.7.2.686 [id number] [facility] 2022-08-06 14:45:00 2022-08-06 15:43:13 Outpatient R ROBINA [facility] [id number] [facility] 2022-08-06 14:45:00 2022-08-06 15:43:13 [facility] 1.2.840.114 350.1.13.10 4.2.7.2.686 [id number] [facility] 2022-08-06 14:00:00 2022-08-06 14:15:00 Manager Technology Visit 2, Adc Lab Red Daugherty [facility] 1.2.840.114 350.1.13.10 4.2.7.2.686 [id number] [facility] 2022-08-05 00:00:00 2022-08-05 00:00:00 Orders Only Doctor Unassigned, [facility] 1.2840.114 350.1.13.10 4.2.7.2.686 [id number] [facility] 2022-08-01 00:00:00 2022-08-01 00:00:00 Orders Only Doctor Unassigned, [facility] 1.2840.114 350.1.13.10 4.2.7.2.686 [id number] [facility] 2022-08-01 00:00:00 2022-08-01 00:00:00 Telephone Red Daugherty [facility] 1..840.114 350.1.13.10 4.2.7.2.686 [id number] [facility] 2022-04-07 13:45:00 2022-04-07 14:57:34 Out[facility] [id number] [facility] 2022-04-07 13:45:00 2022-04-07 14:57:34 [facility] 1..840.114 350.1.13.10 4.2.7.2.686 [id number] [facility] 2022-01-06 14:15:00 2022-01-06 15:49:34 Outpatient R ARIA QUARLESTNEY [facility] [id number] [facility] 2022-01-06 14:15:00 2022-01-06 15:49:34 [facility] 1..840.114 350.1.13.10 4.2.7.2.686 [id number] [facility] 2021-11-25 14:00:00 2021-11-25 15:08:36 Outpatient R RED DAUGHERTY [facility] [id number] [facility] 2021-11-25 14:00:00 2021-11-25 15:08:36 Office Visit Red Daugherty , Adc Surg Spec Procedure [facility] 1..840.114 350.1.13.10 4.2.7.2.686 [id number] [facility] 2021-11-25 00:00:00 2021-11-25 00:00:00 Orders Only Doctor Unassigned, [facility] 1.2.840.114 350.1.13.10 4.2.7.2.686 [id number] [facility] 2021-11-21 14:00:00 2021-11-21 15:35:44 Outpatient R DAT [facility] [id number] [facility] 2021-11-21 14:00:00 2021-11-21 15:35:44 Nurse Visit Nurse, [facility] Surgery [facility] 1.2.840.114 350.1.13.10 4.2.7.2.686 [id number] [facility] 2021-11-20 00:00:00 2021-11-20 00:00:00 Telephone Dat [facility] 1.2.840.114 350.1.13.10 4.2.7.2.686 [id number] [facility] 2021-11-18 00:00:00 2021-11-18 00:00:00 Telephone Dat [facility] 1.2.840.114 350.1.13.10 4.2.7.2.686 [id number] [facility] 2021-11-18 00:00:00 2021-11-18 00:00:00 Case Management Glenys Quarles [facility] 1.2.840.114 350.1.13.10 4.2.7.2.686 [id number] [facility] 2021-11-13 13:00:00 2021-11-13 13:30:00 Nurse Visit Nurse, [facility] Surgery [facility] 1.2.840.114 350.1.13.10 4.2.7.2.686 [id number] [facility] 2021-11-13 13:00:00 2021-11-13 13:00:00 Outpatient R DAT [facility] [id number] [facility] 2021-11-08 00:00:00 2021-11-08 00:00:00 Telephone Dat [facility] 1.2.840.114 350.1.13.10 4.2.7.2.686 [id number] [facility] 2021-10-30 13:15:00 2021-10-30 13:50:02 Nurse Visit Nurse, [facility] 1.2.840.114 350.1.13.10 4.2.7.2.686 [id number] [facility] 2021-10-30 13:15:00 2021-10-30 13:15:00 Outpatient R DAT [facility] [id number] [facility] 2021-10-22 00:00:00 2021-10-22 00:00:00 Telephone QuarlesGlenys [facility] 1.2.840.114 350.1.13.10 4.2.7.2.686 [id number] [facility] 2021-10-18 14:15:00 2021-10-18 14:24:57 [facility] [id number] 2021-10-18 14:15:00 2021-10-18 14:24:57 Nurse Visit Nurse, [facility] 1.2.840.114 350.1.13.10 4.2.7.2.686 [id number] [facility] 2021-09-18 13:30:00 2021-09-18 14:32:42 Outpatient [facility] [id number] [facility] 2021-09-18 13:30:00 2021-09-18 14:32:42 [facility] 1.2.840.114 350.1.13.10 4.2.7.2.686 [id number] [facility] 2021-09-11 14:00:00 2021-09-11 14:00:00 [facility] [id number] [facility] 2021-05-27 15:30:00 2021-05-27 16:16:00 Outpatient R DAT [facility] [id number] [facility] 2021-05-27 15:30:00 2021-05-27 16:16:00 Office Visit Red Daugherty, Adc Surg Spec Procedure [facility] 1.2.840.114 350.1.13.10 4.2.7.2.686 [id number] [facility] 2021-05-17 14:00:00 2021-05-17 14:23:19 [facility] [id number] [facility] 2021-05-17 14:00:00 2021-05-17 14:23:19 Nurse Visit Nurse, [facility] Surgery Dat [facility] 1.2.840.114 350.1.13.10 4.2.7.2.686 [id number] [facility] 2021-04-15 09:00:00 2021-04-15 10:22:20 Outpatient R RED DAUGHERTY [facility] [id number] [facility] 2021-04-15 09:00:00 2021-04-15 10:22:20 [facility] 1..840.114 350.1.13.10 4.2.7.2.686 [id number] [facility] 2021-04-15 09:00:00 2021-04-15 10:22:20 Outpatient R RED DAUGHERTY [facility] [id number] [facility] 2021-04-15 09:00:00 2021-04-15 10:22:20 [facility] [id number] [facility] 2021-04-15 09:00:00 2021-04-15 09:30:00 Office Visit Red Daugherty, Adc Surg Spec Procedure [facility] 1..840.114 350.1.13.10 4.2.7.2.686 [id number] [facility] 2021-04-15 09:00:00 2021-04-15 09:00:00 Outpatient R [facility] [id number] [facility] 2021-04-15 09:00:00 2021-04-15 09:00:00 [facility] [id number] [facility] 2021-04-15 09:00:00 2021-04-15 09:00:00 [facility] [id number] [facility] 2021-04-15 09:00:00 2021-04-15 09:00:00 [facility] [id number] [facility] 2021-04-15 09:00:00 2021-04-15 09:00:00 Outpatient R [facility] [id number] [facility] 2021-04-15 00:00:00 2021-04-15 00:00:00 Orders Only Doctor Unassigned, [facility] 1..840.114 350.1.13.10 4.2.7.2.686 [id number] [facility] 2021-04-03 09:30:00 2021-04-03 10:05:48 Outpatient R TERRI SHETH [facility] [id number] [facility] 2021-04-03 09:30:00 2021-04-03 09:45:00 Nurse Visit Nurse, [facility] Surgery Terri Alfredo [facility] 1..840.114 350.1.13.10 4.2.7.2.686 [id number] [facility] 2021-04-03 09:30:00 2021-04-03 09:30:00 Outpatient R TERRI SHETH [facility] [id number] [facility] 2021-03-28 10:00:00 2021-03-28 10:00:00 [facility] [id number] [facility] 2021-03-28 10:00:00 2021-03-28 10:00:00 Outpatient R DAT [facility] [id number] [facility] 2021-03-27 00:00:00 2021-03-27 00:00:00 Telephone Dat [facility] 1.2.840.114 350.1.13.10 4.2.7.2.686 [id number] 204 [id number] [facility] 2021-03-20 14:15:00 2021-03-20 14:16:10 Outpatient R TERRI SHETH [facility] [id number] [facility] 2021-03-20 14:15:00 2021-03-20 14:16:10 Nurse Visit Nurse, [facility] Surgery Adore Alfredoela Tom [facility] 1.2.840.114 350.1.13.10 4.2.7.2.686 [id number] 204 [id number] [facility] 2021-03-20 14:15:00 2021-03-20 14:16:10 Outpatient R TERRI SHETH [facility] [id number] [facility] 2021-02-21 15:45:00 2021-02-21 17:15:54 Outpatient R RED DAUGHERTY [facility] [id number] [facility] 2021-02-21 15:45:00 2021-02-21 17:15:54 Office Visit Red Daugherty, Adc Surg Spec [facility] 1.2.840.114 350.1.13.10 4.2.7.2.686 [id number] [facility] 2021-02-21 15:45:00 2021-02-21 17:15:54 Outpatient R RED DAUGHERTY [facility] [id number] [facility] 2021-02-21 15:45:00 2021-02-21 17:15:54 Outpatient R RED DAUGHERTY [facility] [id number] [facility] 2021-02-21 15:45:00 2021-02-21 17:15:54 Outpatient R RED DAUGHERTY [facility] [id number] [facility] 2021-02-11 13:30:00 2021-02-11 14:35:32 [facility] [id number] [facility] 2021-02-11 13:30:00 2021-02-11 14:35:32 Outpatient R RED DAUGHERTY [facility] [id number] [facility] 2021-02-11 13:30:00 2021-02-11 14:35:32 [facility] [id number] [facility] 2021-02-11 13:30:00 2021-02-11 13:45:00 Nurse Visit Nurse, Adc Surgery [facility] 1.2.840.114 350.1.13.10 4.2.7.2.686 [id number] [facility] 2021-02-11 13:30:00 2021-02-11 13:30:00 Outpatient R LEXISRED Keller [facility] [id number] [facility] 2021-02-11 00:00:00 2021-02-11 00:00:00 Orders Only Doctor Unassigned, [facility] 1.2.840.114 350.1.13.10 4.2.7.2.686 [id number] [facility] 2021-01-31 00:00:00 2021-01-31 00:00:00 Telephone DatRde [facility] BUILD[facility] 1.2.840.114 350.1.13.10 4.2.7.2.686 [id number] [facility] 2021-01-28 14:06:17 2021-01-28 15:43:02 Office Visit Terri Sheth [facility] 1.2.840.114 350.1.13.10 4.2.7.2.686 [id number] [facility] 2021-01-28 14:00:00 2021-01-28 15:43:02 Outpatient R TERRI SHETH [facility] [id number] [facility] 2021-01-28 14:00:00 2021-01-28 15:43:02 Outpatient R TERRI SHETH [facility] [id number] [facility] 2021-01-28 14:00:00 2021-01-28 15:43:02 Outpatient R TERRI SHETH [facility] [id number] [facility] 2021-01-28 14:00:00 2021-01-28 15:43:02 Outpatient R TERRI SHETH [facility] [id number] [facility] 2020-08-30 00:00:00 2020-08-30 00:00:00 Orders Only Doctor Unassigned, [facility] 1.2.840.114 350.1.13.10 4.2.7.2.686 [id number] [facility] 2020-07-30 15:30:00 2020-07-30 16:12:10 Outpatient R TERRI SHETH [facility] [id number] [facility] 2020-07-30 15:30:00 2020-07-30 16:12:10 Outpatient R DOMENICTERRI [facility] [id number] [facility] 2020-07-30 15:29:48 2020-07-30 16:12:10 Office Visit Domenic Terri Santos [facility] 1.2.840.114 350.1.13.10 4.2.7.2.686 [id number] [facility] 2020-07-30 15:30:00 2020-07-30 15:30:00 Outpatient R DOMENICTERRI [facility] [id number] [facility] 2020-06-20 13:30:00 2020-06-20 14:53:03 Outpatient R DOMENIC TERRI [facility] [id number] [facility] 2020-06-20 13:30:00 2020-06-20 14:53:03 Outpatient R DOMENIC TERRI [facility] [id number] [facility] 2020-06-20 13:27:48 2020-06-20 14:53:03 Office Visit Domenic Terri Santos [facility] 1.2.840.114 350.1.13.10 4.2.7.2.686 [id number] [facility] 2020-06-20 13:30:00 2020-06-20 13:30:00 Outpatient R DOMENIC TERRI [facility] [id number] [facility] 2020-06-20 00:00:00 2020-06-20 00:00:00 Orders Only Doctor Unassigned, [facility] 1.2.840.114 350.1.13.10 4.2.7.2.686 [id number] [facility] 2020-05-07 14:15:00 2020-05-07 15:21:54 [facility] [id number] [facility] 2020-05-07 14:15:00 2020-05-07 15:21:54 Outpatient R DAT [facility] [id number] [facility] 2020-05-07 14:11:00 2020-05-07 15:21:54 Office Visit Dat [facility] Building 1.2.840.114 350.1.13.10 4.2.7.2.686 [id number] [facility] 2020-05-07 14:15:00 2020-05-07 14:15:00 [facility] [id number] [facility] 2020-04-24 14:00:00 2020-04-24 14:07:17 Outpatient R DAT [facility] [id number] [facility] 2020-04-24 14:00:00 2020-04-24 14:07:17 Outpatient R DAT [facility] [id number] [facility] 2020-04-24 14:00:00 2020-04-24 14:07:17 Outpatient R DAT [facility] [id number] [facility] 2020-04-24 14:00:00 2020-04-24 14:00:00 Outpatient R [facility] [id number] [facility] 2020-04-23 00:00:00 2020-04-23 00:00:00 Telephone Dat [facility] Building 1.2.840.114 350.1.13.10 4.2.7.2.686 [id number] [facility] 2020-04-06 14:00:00 2020-04-06 14:00:00 Outpatient R [facility] [id number] [facility] 2020-04-06 14:00:00 2020-04-06 10:04:45 Outpatient R DAT [facility] [id number] [facility] 2020-04-06 14:00:00 2020-04-06 10:04:45 Outpatient R DAT [facility] [id number] [facility] 2020-04-06 09:54:12 2020-04-06 10:04:45 Nurse Visit Nurse, [facility] 1.2.840.114 350.1.13.10 4.2.7.2.686 [id number] [facility] 2020-03-15 11:00:00 2020-03-15 12:14:34 Outpatient R DTA [facility] [id number] [facility] 2020-03-15 11:00:00 2020-03-15 12:14:34 Outpatient R DAT [facility] [id number] [facility] 2020-03-15 10:54:44 2020-03-15 12:14:34 Nurse Visit Nurse, [facility] 1.2.840.114 350.1.13.10 4.2.7.2.686 [id number] [facility] 2020-03-15 11:00:00 2020-03-15 11:00:00 Outpatient R [facility] [id number] [facility] 2020-03-15 00:00:00 2020-03-15 00:00:00 Orders Only Doctor Unassigned, [facility] 1.2.840.114 350.1.13.10 4.2.7.2.686 [id number] [facility] 2020-03-12 14:00:00 2020-03-12 14:34:26 [facility] [id number] [facility] 2020-03-12 14:00:00 2020-03-12 14:34:26 Outpatient R DAT [facility] [id number] [facility] 2020-03-12 13:35:40 2020-03-12 14:34:26 Nurse Visit Nurse, [facility] 1.2.840.114 350.1.13.10 4.2.7.2.686 [id number] [facility] 2020-03-12 14:00:00 2020-03-12 14:00:00 [facility] [id number] [facility] 2020-03-09 13:03:03 2020-03-09 13:28:10 Nurse Visit Nurse, [facility] 1.2.840.114 350.1.13.10 4.2.7.2.686 [id number] [facility] 2020-03-09 13:00:00 2020-03-09 13:28:10 [facility] [id number] [facility] 2020-03-09 13:00:00 2020-03-09 13:28:10 [facility] [id number] [facility] 2020-03-09 13:00:00 2020-03-09 13:00:00 Outpatient R [facility] [id number] [facility] 2020-02-14 00:00:00 2020-02-14 00:00:00 Telephone Dat [facility] Building 1.2.840.114 350.1.13.10 4.2.7.2.686 [id number] [facility] 2020-02-07 00:00:00 2020-02-07 00:00:00 Telephone Dat [facility] Building 1.2.840.114 350.1.13.10 4.2.7.2.686 [id number] [facility] 2020-02-06 09:09:56 2020-02-06 11:03:21 Office Visit Dat [facility] 1.2.840.114 350.1.13.10 4.2.7.2.686 [id number] [facility] 2020-02-06 09:15:00 2020-02-06 09:15:00 Outpatient R DAT [facility] [id number] [facility] 2020-01-31 10:48:00 2020-02-01 13:51:00 Hospital Encounter Dat [facility] 1.2.840.114 350.1.13.10 4.2.7.2.686 [id number] [facility] 2020-01-30 14:56:15 2020-01-30 15:11:15 Laboratory Only Only, [facility] 1.2.840.114 350.1.13.10 4.2.7.2.686 [id number] [facility] 2020-01-30 14:45:00 2020-01-30 14:45:00 Outpatient R [facility] [id number] [facility] 2020-01-30 00:00:00 2020-01-30 00:00:00 Orders Only Doctor Unassigned, [facility] 1.2840.114 350.1.13.10 4.2.7.2.686 [id number] [facility] 2020-01-18 00:00:00 2020-01-18 00:00:00 [facility]phone [facility] 1.20.114 350.1.13.10 4.2.7.2.686 [id number] [facility] 2020-01-09 11:19:20 2020-01-09 13:02:24 Telemedici ne Visit Dat [facility] Building 1.2.114 350.1.13.10 4.2.7.2.686 [id number] [facility] 2020-01-09 11:30:00 2020-01-09 11:30:00 Outpatient R RED DAUGHERTY [facility] [id number] [facility] 2019-12-31 02:52:00 2019-12-31 02:52:00 Outpatient Georgia-Constance _A_AH VF VFP [id number] [facility] 2019-12-27 00:00:00 2019-12-27 00:00:00 Orders Only Doctor Unassigned, [facility] 1.2.114 350.1.13.10 4.2.7.2.686 [id number] [facility] 2019-12-19 13:24:02 2019-12-19 16:03:35 Office Visit Red Daugherty Rm, Adc Surg Spec Procedure [facility] Building 1.2.114 350.1.13.10 4.2.7.2.686 [id number] [facility] 2019-12-19 13:30:00 2019-12-19 13:30:00 Outpatient R RED DAUGHERTY [facility] [id number] [facility] 2019-12-15 13:19:31 2019-12-15 15:37:37 Office Visit Marcin Escobedo, Ronald Uro Procedure [facility] 1.2.840.114 350.1.13.10 4.2.7.2.686 [id number] [facility] 2019-12-15 14:00:00 2019-12-15 14:00:00 Outpatient [facility] [id number] [facility] 2019-12-12 00:00:00 2019-12-12 00:00:00 Telephone Gregg [facility] 1.2.840.114 350.1.13.10 4.2.7.2.686 [id number] [facility] 2019-12-08 14:51:56 2019-12-09 09:27:14 Office Visit Marcin Escobedo, Ronald Uro Procedure [facility] 1.2.840.114 350.1.13.10 4.2.7.2.686 [id number] [facility] 2019-12-08 14:00:00 2019-12-08 14:00:00 Outpatient MARCIN YU [facility] [id number] [facility] 2019-12-05 00:00:00 2019-12-05 00:00:00 Transition of Care [place] 1.2.840.114 350.1.13.10 4.2.7.2.686 [id number] [facility] 2019-11-29 17:47:00 2019-12-02 16:54:00 Hospital Encounter ManuelfranciscoTunde [facility] 1.2.840.114 350.1.13.10 4.2.7.2.686 [id number] [facility] 2019-11-29 00:00:00 2019-11-29 00:00:00 Telephone Terri Sheth [facility] 1.2.840.114 350.1.13.10 4.2.7.2.686 [id number] [facility] 2019-11-28 13:57:45 2019-11-28 23:59:00 Hospital Encounter Terri Sheth [facility] 1.2.840.114 350.1.13.10 4.2.7.2.686 [id number] [facility] 2019-11-28 00:00:00 2019-11-28 00:00:00 Outpatient R TERRI SHETH [facility] [id number] [facility] 2019-11-21 10:10:30 2019-11-21 12:03:21 [facility] 1.2.840.114 350.1.13.10 4.2.7.2.686 [id number] [facility] 2019-11-21 11:25:58 2019-11-21 11:40:58 Manager Technology Visit 2, Adc Lab Dat [facility] 1.2.840.114 350.1.13.10 4.2.7.2.686 [id number] [facility] 2019-11-21 10:00:00 2019-11-21 10:00:00 Outpatient R DAT [facility] [id number] [facility] 2019-11-21 00:00:00 2019-11-21 00:00:00 Orders Only Doctor Unassigned, [facility] 1.2.840.114 350.1.13.10 4.2.7.2.686 [id number] [facility] 2019-10-14 11:41:00 2019-10-14 11:41:00 [facility] [id number] [facility] 2019-09-13 11:00:00 2019-09-13 11:00:00 [facility] [id number] [facility] 2019-09-02 09:43:00 2019-09-02 09:43:00 [facility] [id number] [facility] 2019-09-02 09:00:00 2019-09-02 09:00:00 [facility] [id number] [facility] 2019-08-31 08:30:00 2019-08-31 08:30:00 [facility] [id number] [facility] 2019-08-25 14:00:00 2019-08-25 14:00:00 [facility] [id number] [facility] 2019-08-18 15:00:00 2019-08-18 15:00:00 [facility] [id number] [facility] 2019-04-06 07:26:00 2019-04-06 07:26:00 Outpatient [place]-Mbayo _A_AH VFP VFP [id number] [facility] Practic e Results Test Description Test Time Test Comments Results Result Co mments Source [facility] [id number] 20:49:00 * Test Item Value Reference Range [...] clear Lab Interpretation (test cod e = [id number]) Normal General acute hospital URINALYSIS, [id number] 19:25:00 * Test Item Value Reference Range [...] U APPEAR (test code = 3267) [facility] [id number] 19:25:00 * Test Item Value Reference Range [...] U APPEAR (test code = 3267) Clear [facility], [id number] 19:19:00 * Test Item Value Reference Range [...] U APPEAR (test code = 3267) Clear [facility]
--- NOTE | 2023-08-07 12:04 | RAD REPORT ---
EXAM DESCRIPTION: CT - CTHCSPWOC - 08/07/2023 10:49 am CLINICAL HISTORY: TRAUMA COMPARISON: Head C Spine Mpr Wo Con dated 06/10/2023 TECHNIQUE: Axial thin cut noncontrast CT images of the head were obtained. Axial thin cut noncontrast CT images of the cervical spine were obtained. Multiplanar reformatted images were generated and reviewed. All CT scans are performed using dose optimization technique as appropriate and may include automated exposure control or mA/KV adjustment according to patient size. FINDINGS: CT HEAD WITHOUT CONTRAST: Stable prominent extra-axial fluid along the mesial temporal sulci more so on the right, may represen t sequelae of atrophy or small arachnoid cysts. No acute hemorrhage, hydrocephalus or other extra-axi al collection is identified.No areas of brain edema or midline shift. The paranasal sinuses and mastoids are clear.The calvarium is intact. Right occipital scalp swelling and small hematoma. CT CERVICAL SPINE WITHOUT CONTRAST: No fracture or subluxation.No prevertebral soft tissues swelling is identified. Carious changes and periapical lucencies with adjacent sclerosis again seen along the posterior-most left maxillary molar . IMPRESSION: Right occipital scalp swelling and small hematoma. No other acute traumatic intracranial or cervical spine findings.
--- NOTE | 2023-08-07 12:11 | ER ---
Nurse's Notes [facility] Name: Enzo Person Age: 83 yrs Sex: Male : 1940 Arrival Date: 08/07/2023 Time: 10:24 Bed 3 Private MD: Diagnosis: Contusion of scalp, initial encounter;Abrasion of scalp Presentation: 08/06 10:56 Chief complaint: EMS states: patient fell at [place], it was a witnessed fall from a ap3 sitting position to a scale. patient hit his head with reported not LOC from nursing staff at living facility. Care prior to arrival: IV initiated. 20 GA, in the left forearm. Mechanism of Injury: Fall from standing position. Trauma event details: Injury occurred in the [facility], Injury occurred: in a recreational area. Injury occurred: August 07, 2023. 10:56 Acuity: HUMERA 3 ap3 10:56 Method Of Arrival: EMS: [facility] ap3 11:01 Coronavirus screen: At this time, the client does not indicate any symptoms associated ap3 with coronavirus-19. Ebola Screen: No symptoms or risks identified at this time. Initial Sepsis Screen: Does the patient meet any 2 criteria? No. Patient's initial sepsis screen is negative. Does the patient have a suspected source of infection? No. Patient's initial sepsis screen is negative. Risk Assessment: Do you want to hurt yourself or someone else? Patient reports no desire to harm self or others. Onset of symptoms was August 07, 2023. Historical: - Allergies: 10:53 PENICILLINS; ap3 - PMHx: 10:53 Anemia; chronic back pain; Dementia; Hypothyroidism; dysphasia; ap3 - Immunization history: Last tetanus immunization: unknown. - Infectious Disease History:: uknown. - Social history:: Smoking status: unknown. Screenin:01 [facility] ED Fall Risk Assessment (Adult) History of falling in the last 3 months, ap3 including since admission Yes- single mechanical fall (1 pt) Confusion or Disorientation No (0 pts) Intoxicated or Sedated No (0 pts) Impaired Gait Yes (1 pt) Mobility Assist Device Used Yes (1 pt) Altered Elimination No (0 pt) Score/Fall Risk Level 3 or more points = High Risk Oriented to surroundings, Maintained a safe environment, Educated pt \T\ family on fall prevention, incl call for assistance when getting out of bed, Assessed \T\ reinforced patient's understanding of fall precautions, Provided non-skid footwear, Hourly rounding (assess needs \T\ fall precautionary measures) done, Used ambulatory aids as needed (educated on \T\ assisted with), Used gait belt as appropriate Implemented a Fall Risk Plan of Care, Apply high fall risk patient identification: yellow non skid footwear/ fall signage, Placed fall mat w/ non beveled edge next to bed, Activated bed/chair alarm, Remained w/in arm's length of patient and in sight while toileting, Offered frequent toileting (1:1 observation), Remained with patient while ambulating, Utilized family, sitter, or virtual medical esthetician as indicated. Abuse screen: Denies threats or abuse. Nutritional screening: No deficits noted. Tuberculosis screening:. Primary Survey: 11:00 NO uncontrolled hemorrhage observed. A: The client is awake and alert. The airway is ap3 patent. Breathing/Chest: Spontaneous respiratory effort, equal unlabored respirations, breath sounds clear bilaterally, regular pattern, symmetrical chest rise and fall. Circulation: No external hemorrhage present. Regular and strong central pulse, skin warm/dry/normal color. Disability Client is alert. Exposure/Environment: A warming method has been applied: A warm blanket has been provided to the patient. Assessment: 10:58 General: Appears in no apparent distress. Behavior is calm, cooperative, appropriate ap3 for age. Pain: Complains of pain in scalp. Neuro: Level of Consciousness is awake, alert, obeys commands, Oriented to person, place, time, Speech is normal. Cardiovascular: Patient's skin is warm and dry. Respiratory: Airway is patent Respiratory effort is even, unlabored, Respiratory pattern is regular, symmetrical. Injury Description: wound on back of head from fall. 12:00 Reassessment: Patient is alert, oriented x 3, equal unlabored respirations, skin aa5 warm/dry/pink. 12:26 Reassessment: Report given to Katarzyna at [facility], Katarzyna states their aa5 transportation staff will come and pick pt up. . 12:35 Reassessment: Wound to back of head cleaned with saline, wound is abrasion and dark aa5 purple bruising, no active bleeding noted .. 12:35 Reassessment: Patient is alert, oriented x 3, equal unlabored respirations, skin aa5 warm/dry/pink. 13:30 Reassessment: Pt's daughter at bedside . aa5 14:00 Reassessment: Patient is alert, oriented x 3, equal unlabored respirations, skin aa5 warm/dry/pink. Vital Signs: 11:08 BP 105 / 64; Pulse 98; Resp 17; Pulse Ox 100% on R/A; Weight 49.9 kg; ap3 11:47 BP 108 / 61; Pulse 94; Pulse Ox 100% on R/A; ap3 12:00 BP 120 / 53; Pulse 95; Resp 16 S; Pulse Ox 98% on R/A; aa5 13:00 BP 108 / 63; Pulse 97; Resp 18 S; Temp 97.5(TE); Pulse Ox 98% on R/A; aa5 Wilson Coma Score: 11:00 Eye Response: spontaneous(4). Motor Response: obeys commands(6). Verbal Response: ap3 oriented(5). Total: 15. 11:47 Eye Response: spontaneous(4). Motor Response: obeys commands(6). Verbal Response: ap3 oriented(5). Total: 15. 12:00 Eye Response: spontaneous(4). Motor Response: obeys commands(6). Verbal Response: aa5 oriented(5). Total: 15. 13:00 Eye Response: spontaneous(4). Motor Response: obeys commands(6). Verbal Response: aa5 oriented(5). Total: 15. Trauma Score (Adult): 11:00 Eye Response: spontaneous(1); Verbal Response: oriented(1); Motor Response: obeys ap3 commands(2); Systolic BP: > 89 mm Hg(4); Respiratory Rate: 10 to 29 per min(4); Wilson Score: 15; Trauma Score: 12 11:47 Eye Response: spontaneous(1); Verbal Response: oriented(1); Motor Response: obeys ap3 commands(2); Systolic BP: > 89 mm Hg(4); Respiratory Rate: 10 to 29 per min(4); Wilson Score: 15; Trauma Score: 12 ED Course: 10:35 Patient arrived in ED. ec2 10:36 Marlon Schneider MD is Attending Physician. ec2 10:48 CT Head C Spine In Process Unspecified. EDMS 10:57 Triage completed. ap3 11:01 O2 via room air. ap3 11:02 Patient has correct armband on for positive identification. Bed in low position. Call ap3 light in reach. Side rails up X2. Adult w/ patient. Provided Education on: fall risk education. 11:03 Thermoregulation: warm blanket given to patient. ap3 11:03 Arm band placed on right wrist. ap3 11:08 Nurys Cherry, RN is Primary Nurse. ap3 14:00 No provider procedures requiring assistance completed. IV discontinued, intact, aa5 bleeding controlled, No redness/swelling at site. Pressure dressing applied. Administered Medications: No medications were administered Medication: 14:00 VIS not applicable for this client. aa5 Outcome: 12:10 Discharge ordered by . ec2 14:00 Discharged to senior care. Report called to Katarzyna pastor 14:00 Condition: stable 14:00 Patient's length of stay was not longer than 2 hours. 14:00 Discharge instructions given to senior care, Instructed on discharge instructions, aa5 follow up and referral plans. Demonstrated understanding of instructions, follow-up care, 14:07 Patient left the ED. aa5 Signatures: Dispatcher [employer] Lori Rothman RN RN aa5 Nurys Cherry, LUL RN ap3 Marlon Schneider MD MD ec2
--- NOTE | 2023-08-07 12:11 | EDPHYS ---
Physician Documentation [facility] Name: Enzo Person Age: 83 yrs Sex: Male : 1940 Arrival Date: 08/07/2023 Time: 10:24 Bed 3 Private MD: ED Physician Marlon Schneider HPI: 08/06 10:39 This 83 yrs old Male presents to ER via Unassigned with complaints of fall. ec2 10:39 Patient arrives today for evaluation after a ground-level fall. Report From EMS, ec2 history of dementia, patient reportedly was being transferred with assistance and subsequently fell. No loss of consciousness, no blood thinner use.. Historical: - Allergies: 10:53 PENICILLINS; ap3 - PMHx: 10:53 Anemia; chronic back pain; Dementia; Hypothyroidism; dysphasia; ap3 - Immunization history: Last tetanus immunization: unknown. - Infectious Disease History:: uknown. - Social history:: Smoking status: unknown. ROS: 10:39 Constitutional: as per hpi ec2 Exam: 10:39 Constitutional: GEN: No acute distress HEENT: -Head: no deformities -Eyes: EOMI CV: ec2 regular rate LUNGS: no respiratory distress ABD: non-tender SKIN: Contusion noted to the right occiput MSK: No C/T/L spine deformities RUE w/o bony deformity LUE w/o bony deformity RLE w/o bony deformity LLE w/o bony deformity NEURO: moves all extremities equally, GCS 15 (E4, V5, M6) Vital Signs: 11:08 BP 105 / 64; Pulse 98; Resp 17; Pulse Ox 100% on R/A; Weight 49.9 kg; ap3 11:47 BP 108 / 61; Pulse 94; Pulse Ox 100% on R/A; ap3 12:00 BP 120 / 53; Pulse 95; Resp 16 S; Pulse Ox 98% on R/A; aa5 13:00 BP 108 / 63; Pulse 97; Resp 18 S; Temp 97.5(TE); Pulse Ox 98% on R/A; aa5 [place] Coma Score: 11:00 Eye Response: spontaneous(4). Motor Response: obeys commands(6). Verbal Response: ap3 oriented(5). Total: 15. 11:47 Eye Response: spontaneous(4). Motor Response: obeys commands(6). Verbal Response: ap3 oriented(5). Total: 15. 12:00 Eye Response: spontaneous(4). Motor Response: obeys commands(6). Verbal Response: aa5 oriented(5). Total: 15. 13:00 Eye Response: spontaneous(4). Motor Response: obeys commands(6). Verbal Response: aa5 oriented(5). Total: 15. Trauma Score (Adult): 11:00 Eye Response: spontaneous(1); Verbal Response: oriented(1); Motor Response: obeys ap3 commands(2); Systolic BP: > 89 mm Hg(4); Respiratory Rate: 10 to 29 per min(4); Carlos Score: 15; Trauma Score: 12 11:47 Eye Response: spontaneous(1); Verbal Response: oriented(1); Motor Response: obeys ap3 commands(2); Systolic BP: > 89 mm Hg(4); Respiratory Rate: 10 to 29 per min(4); Carlos Score: 15; Trauma Score: 12 MDM: 10:36 Patient medically screened. ec2 10:39 Data reviewed: vital signs. ED course: Patient arrives today for evaluation of a fall. ec2 Examination remarkable for well-appearing nontoxic but he was otherwise in no acute distress with a reassuring examination with a contusion with small abrasion noted over the right occiput. Will obtain CT scan of the head and C-spine given the patient's age and dementia. Differential diagnosis includes contusion, intracranial brain bleed, C-spine fracture.. 12:10 ED course: On my interpretation of the CT scan of the head, no acute intracranial ec2 abnormality identified. Will discharge home. Return precautions given.. 12:10 ED course: MDM: Differential diagnosis as documented above in ED course; Independent ec2 interpretation of tests: imaging as above; History gathered from independent historian: Yes; EMS; . 08/06 10:39 Order name: CT Head C Spine; Complete Time: 12:10 ec2 Administered Medications: No medications were administered Disposition Summary: 08/07/23 12:10 Discharge Ordered Notes: Location: Home ec2 Condition: Stable ec2 Diagnosis - Contusion of scalp, initial encounter ec2 - Abrasion of scalp ec2 Followup: ec2 - With: Private Physician - When: - Reason: Re-evaluation by your physician Discharge Instructions: - Discharge Summary Sheet ec2 - Hematoma, Obax-[id number] ec2 Forms: - Medication Reconciliation Form ec2 - Antibiotic Education ec2 - Prescription Opioid Use ec2 - Patient Portal Instructions ec2 - Leadership Thank You Letter ec2 Signatures: Dispatcher [employer] Nurys Appiah RN RN ap3 Marlon Schneider MD MD ec2 Corrections: (The following items were deleted from the chart) 10:39 10:39 Head C Spine MPR Wo Con+CT.RAD.BRZ ordered. EDMS EDMS
[2023-08-07 15:07] VITALS: BP 108/61; O2SAT 100
== END 2023-08-07 14:07 | disposition home or self-care (01) ==
LOC: ER 10:24
DX: S00.01XA Abrasion of scalp, initial encounter (principal); F03.90 Unspecified dementia, unspecified severity, without behavioral disturbance, psychotic disturbance, mood disturbance, and anxiety
CPT/HCPCS: 70450; 72125; 99285

== ENCOUNTER 2023-08-08 22:39 | Emergency (ER) | payer OTHER ==
--- OUTSIDE RECORDS SUMMARY | 2023-08-08 22:42 | XMS REPORT | Continuity of Care Document ---
Author Name Unknown Address [address] [facility] [place] [address] [facility] Address [address] [facility] [address] [place] [address] Care Team Providers Care Center Hole Reamer Name Role Phone MARVIN SNELL Primary Care Physician Unavailab Marvin Arguello Attending Clinician Unavailable RED DAUGHERTY Attending Clinician Unavailable TUNDE LOPEZ Attending Clinician Unavailable GLENYS QUARLES Attending Clinician UnavailGlenys Mansfield Attending Clinician [phone] Doctor Unassigned, [place] Attending Clinician U bhavikailRed Kaufman MD Attending Clinician [phone], [facility] Lab Attending Clinician Unavailable , [facility] Surg Spec Procedure Attending Clinician Unavailable Nurse, [facility] Surgery Gu Attending Clinician UnaTERRI Andrade Attending Clinician Unavailable Terri Jolly Attending Clinician [phone] Only, [facility] Test Attending Clinician Unavailable Hosea Alcaraz MD Attending Clinician [phone] [place]-Constance_Tom_FRANCISCO Attending Clinician Unavailable Marcin Escobedo MD Attending Clinician [phone] Room, [facility] Uro Procedure Attending Clinician UnaMARCIN Mc Attending Clinician Unavailable Jaya MCCARTY, Lisa Attending Clinician Unavailable Tunde Lopez MD Attending Clinician [phone] RED DAUGHERTY Admitting Clinician Unavailable TUNDE LOPEZ Admitting Clinician Unavailable Red Daugherty MD Admitting Clinician [place]-Mbayo_A_AH Admitting Clinician Unavailable Tunde Lopez MD Admitting Clinician [phone] Payers Payer Name Policy Type Policy Number Effective Date Expirati on Date Source ROSALIND TROTTER [id number] 2019 00:00:00 [employer] (MEDICARE REPLACEMENT/ADVANT AGE - HMO) [id number] 2019 00:00:00 Problems Condition Name Condition Details Condition Category Status Onset Date Resolution Date Last Treatment Date Treating Clinician Comments Source Urinary retention Urinary retention Disease Active 2019-02 00:00: 00 Overview: Formattin g of this note might be different from the original. 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 Problem [facility] Allergies, Adverse Reactions, Alerts Allergy Name Allergy Type Status Severity Reaction(s) Onset Date Inactive Date Treating Clinician Comments Source PENICILL IN DRUG INGREDI Active Unknown-Cmnt 2019-02 0 00:00: 00 [facility] Penicill in Propensi ty to adverse reaction s Active Unknown - See comments 2019-02 0 00:00: 00 [facility] Social History Social Habit Start Date Stop Date Quantity Comments Source History of Tobacco Use [facility] Sex Assigned At [facility] Gender identity [facility] Sexual orientation [facility] History SDOH Alcohol Std Drinks [facility] History SDOH Alcohol Binge [facility] History SDOH Alcohol Comment [facility] History of Social function 2023-03-20 00:00:00 2023-03-20 00:00:00 [facility] Alcohol intake 2023-03-20 00:00:00 2023-03-20 00:00:00 Lifetime non-drinker (finding) [facility] Exposure to SARS-CoV-2 (event) 2022-03-28 00:00:00 2022-04-07 13:24:00 Not sure [facility] Tobacco use and exposure 2021-09-18 00:00:00 2021-09-18 00:00:00 Smokeless tobacco non-user [facility] History SDOH Alcohol Frequency 2019-11-21 00:00:00 2019-11-21 00:00:00 1 [facility] Smoking Status Start Date Stop Date Source Never Smoker [facility] Medications Ordered Medication Name Filled Medication Name Start Date Stop Date Current Medication? Ordering Clinician Indication Dosage Frequency Signature (SIG) Comments Components Source tamsulosin 0.4 mg 24 hr capsule 03-20 13:56: 33 Yes .4mg 1 capsule. [facility] gentamicin injection 80 mg 2021-02 20:30: 00 11-25 19:43 :00 No [id number] 80mg [facility] Nitrofurant oin&Nit. Macrocryst (MACROBID) 100 mg capsule 2021-02 0 00:00: 00 11-26 04:59 :00 No [id number] 100mg Take 1 capsule by mouth in the morning and 1 capsule in the evening. Do all this for 7 days. [facility] sulfamethox azole-trime thoprim (BACTRIM DS) 800-160 mg per tablet 9-06 00:00: 00 10-28 04:59 :00 No [id number] 1{tbl} Take 1 tablet by mouth in the morning and 1 tablet in the evening. Do all this for 5 days. [facility] gabapentin 300 mg capsule 2019-02 00:00: 00 Yes [id number] 300mg Take 1 capsule by mouth every 8 (eight) hours as needed for Pain (scale 4-6). [facility] ibuprofen 200 mg tablet 2019-02 00:00: 00 Yes [id number] 400mg Take 2 tablets by mouth every 6 (six) hours as needed for Pain (scale 1-3). [facility] carvediloL 12.5 mg tablet 2019-02 0 00:00: 00 Yes [id number] 12.5mg Take 1 tablet by mouth 2 (two) times daily with meals. [facility] XELPROS 0.005 % dpem 09-29 00:00: 00 Yes INSTILL 1 DROP DAILY IN EACH EYE AT BEDTIME [facility] Tamsulosin HCl 0.4 MG Tamsulosin HCl 0.4 MG No 1{capsu le} QD Tamsulosin HCl 0.4 MG Levothyroxi ne Sodium 88 MCG Levothyroxi ne Sodium 88 MCG No QD Levothyrox ine Sodium 88 MCG Vital Signs Vital Name Observation Time Observation Value Comments S ource Systolic blood pressure 2023-03-20 19:57:00 146 mm[Hg] [facility] Diastolic blood pressure 2023-03-20 19:57:00 64 mm[Hg] [facility] Heart rate 2023-03-20 19:52:00 84 /min [facility] Body temperature 2023-03-20 19:52:00 36.22 Dottie [facility] Respiratory rate 2023-03-20 19:52:00 18 /min [facility] Body height 2023-03-20 19:52:00 170.2 cm [facility] Body weight 2023-03-20 19:52:00 53.706 kg [facility] BMI 2023-03-20 19:52:00 18.54 kg/m2 [facility] Oxygen saturation in Arterial blood by Pulse oximetry 2023-03-20 19:52:00 97 /min [facility] Systolic blood pressure 2022-09-03 19:31:00 153 mm[Hg] [facility] Diastolic blood pressure 2022-09-03 19:31:00 84 mm[Hg] [facility] Heart rate 2022-09-03 19:29:00 88 /min [facility] 2022-09-03 19:29:00 36.94 Dottie [facility] Respiratory rate 2022-09-03 19:29:00 18 /min [facility] Body weight 2022-09-03 19:29:00 53.071 kg [facility] BMI 2022-09-03 19:29:00 18.32 kg/m2 [facility] Oxygen saturation in Arterial blood by Pulse oximetry 2022-09-03 19:29:00 95 /min [facility] Systolic blood pressure 2022-08-06 19:33:00 141 mm[Hg] [facility] Diastolic blood pressure 2022-08-06 19:33:00 62 mm[Hg] [facility] Heart rate 2022-08-06 19:33:00 74 /min [facility] Respiratory rate 2022-08-06 19:33:00 18 /min [facility] Body height 2022-08-06 19:33:00 170.2 cm [facility] Body weight 2022-08-06 19:33:00 53.524 kg [facility] BMI 2022-08-06 19:33:00 18.48 kg/m2 [facility] Oxygen saturation in Arterial blood by Pulse oximetry 2022-08-06 19:33:00 97 /min [facility] Systolic blood pressure 2022-04-07 19:59:00 139 mm[Hg] [facility] Diastolic blood pressure 2022-04-07 19:59:00 59 mm[Hg] [facility] Heart rate 2022-04-07 19:58:00 90 /min [facility] Body temperature 2022-04-07 19:58:00 36.44 Dottie [facility] Respiratory rate 2022-04-07 19:58:00 18 /min [facility] Body height 2022-04-07 19:58:00 170.2 cm [facility] weight 2022-04-07 19:58:00 57.516 kg [facility] BMI 2022-04-07 19:58:00 19.86 kg/m2 [facility] Oxygen saturation in Arterial blood by Pulse oximetry 2022-04-07 19:58:00 99 /min [facility] Systolic blood pressure 2022-01-06 20:43:00 165 mm[Hg] [facility] Diastolic blood pressure 2022-01-06 20:43:00 76 mm[Hg] [facility] Heart rate 2022-01-06 20:43:00 83 /min [facility] Body temperature 2022-01-06 20:42:00 36.5 Dottie [facility] Respiratory rate 2022-01-06 20:42:00 16 /min [facility] Body height 2022-01-06 20:42:00 170.2 cm [facility] Body weight 2022-01-06 20:42:00 57.607 kg [facility] BMI 2022-01-06 20:42:00 19.89 kg/m2 [facility] Oxygen saturation in Arterial blood by Pulse oximetry 2022-01-06 20:42:00 100 /min [facility] Systolic blood pressure 2021-11-25 19:27:00 181 mm[Hg] [facility] Diastolic blood pressure 2021-11-25 19:27:00 76 mm[Hg] [facility] Heart rate 2021-11-25 19:26:00 82 /min [facility] Body temperature 2021-11-25 19:26:00 36.44 Odttie [facility] Respiratory rate 2021-11-25 19:26:00 18 /min [facility] Body height 2021-11-25 19:26:00 170.2 cm [facility] Body weight 2021-11-25 19:26:00 55.792 kg [facility] BMI 2021-11-25 19:26:00 19.26 kg/m2 [facility] Oxygen saturation in Arterial blood by Pulse oximetry 2021-11-25 19:26:00 99 /min [facility] Body height 2021-10-30 18:27:00 170.2 cm [facility] Body weight 2021-10-30 18:27:00 53.252 kg [facility] BMI 2021-10-30 18:27:00 18.39 kg/m2 [facility] Body weight 2021-10-18 19:32:00 54.704 kg [facility] BMI 2021-10-18 19:32:00 18.89 kg/m2 [facility] Body temperature 2021-09-18 19:04:00 36.56 Dottie [facility] Respiratory rate 2021-09-18 19:04:00 18 /min [facility] Body height 2021-09-18 19:04:00 170.2 cm [facility] Body weight 2021-09-18 19:04:00 57.425 kg [facility] BMI 2021-09-18 19:04:00 19.83 kg/m2 [facility] Oxygen saturation in Arterial blood by Pulse oximetry 2021-09-18 19:04:00 97 /min [facility] Systolic blood pressure 2021-09-18 19:04:00 129 mm[Hg] [facility] Diastolic blood pressure 2021-09-18 19:04:00 76 mm[Hg] [facility] Heart rate 2021-09-18 19:04:00 90 /min [facility] Procedures Procedure Date / Time Performed Performing Clinician Source REFERRAL- REQUEST/RESPONSE 2023-03-20 06:01:00 D octor Unassigned, [place] [facility] EXTERNAL PROVIDER RECORDS 2023-02-06 06:01:00 Do ctor Unassigned, [place] [facility] AUTHORIZATION FOR RELEASE OF PHI 2023-01-20 06:01:00 Doctor Unassigned, [place] [facility] DME/SUPPLY JUSTIFICATION 2022-12-26 06:01:00 Doc tor Unassigned, [place] [facility] DME/SUPPLY JUSTIFICATION 2022-11-04 05:01:00 Doc tor Unassigned, [place] [facility] EXTERNAL PROVIDER RECORDS 2022-09-09 05:01:00 Do ctor Unassigned, [place] [facility] US RETROPERITONEAL COMPLETE 2022-08-08 17:39:41 Red Daugherty [facility] PATIENT FINANCIAL POLICY 2022-08-08 16:19:58 Doctor Unassigned, [place] [facility] CONSENT/REFUSAL FOR DIAGNOSIS AND TREATMENT 2022-08-08 16:19:28 Doctor Unassigned, [place] [facility] ASSIGNMENT OF BENEFITS 2022-08-08 16:19:08 Docto r Unassigned, [place] [facility] AUTHORIZATION FOR RELEASE OF PHI 2022-08-05 05:01:00 Doctor Unassigned, [place] [facility] SCANNED LAB RESULTS 2022-08-01 05:01:00 Doctor Finn randolph, [place] [facility] POCT URINALYSIS AUTO 2022-01-06 20:48:00 Court Quarles [facility] POCT URINALYSIS AUTO 2021-11-25 19:24:00 Stalin Daugherty [facility] DISCLOSURE AND CONSENT, MEDICAL AND SURGICAL PROCEDURES 2021-11-25 05:01:00 Doctor Unassigned, [place] [facility] POCT URINALYSIS AUTO 2021-09-18 19:18:00 Court Quarles [facility] Encounters Start Date/Time End Date/Time Encounter Type Admission Type Attending [facility] Care Department Encounter ID Source 2023-07-01 14:30:01 [facility] [id number] [facility] 2023-06-18 09:44:00 Outpatient Marvin Snell [facility] [id number] [facility] 2021-03-13 11:29:37 [facility] [id number] [facility] 2020-12-15 07:25:47 Outpatient RED DAUGHERTY [facility] [id number] [facility] 2020-12-14 22:47:04 Inpatient TUNDE JEFFERSON [facility] [id number] [facility] 2020-12-14 22:46:02 Emergency [facility] [id number] [facility] 2023-09-25 14:15:00 2023-09-25 14:15:00 Outpatient GLENYS SOTO [facility] [id number] [facility] 2023-07-14 00:00:00 2023-07-14 00:00:00 (TEL) [facility] [id number] [facility] 2023-06-18 00:00:00 2023-06-18 00:00:00 [facility] [id number] [facility] 2023-03-20 13:45:00 2023-03-20 14:16:26 Outpatient ARIA SOTOTNEY [facility] [id number] [facility] 2023-03-20 13:45:00 2023-03-20 14:16:26 Office Visit Glenys Quarles [facility] 1..840.114 350.1.13.10 4.2.7.2.686 [id number] [facility] 2023-03-20 00:00:00 2023-03-20 00:00:00 Orders Only Doctor Unassigned, [place] [facility] ..840.114 350.1.13.10 4.2.7.2.686 [id number] [facility] 2023-03-11 09:15:00 2023-03-11 09:15:00 Outpatient GLENYS SOTO [facility] [id number] [facility] 2023-03-09 13:45:00 2023-03-09 13:45:00 [facility] [id number] 2023-02-06 00:00:00 2023-02-06 00:00:00 Orders Only Doctor Unassigned, [place] [facility] 1.2.840.114 350.1.13.10 4.2.7.2.686 [id number] [facility] 2023-01-22 00:00:00 2023-01-22 00:00:00 Telephone Aria Quarlestney [facility]ILD[facility] 1.2.840.114 350.1.13.10 4.2.7.2.686 [id number] [facility] 2023-01-21 00:00:00 2023-01-21 00:00:00 [facility] 1.2.840.114 350.1.13.10 4.2.7.2.686 [id number] [facility] 2023-01-20 00:00:00 2023-01-20 00:00:00 Orders Only Doctor Unassigned, [place] [facility] 1.2.840.114 350.1.13.10 4.2.7.2.686 [id number] [facility] 2023-01-15 00:00:00 2023-01-15 00:00:00 Telephone Glenys Quarles [facility] 1.2.840.114 350.1.13.10 4.2.7.2.686 [id number] [facility] 2022-12-29 00:00:00 2022-12-29 00:00:00 Telephone Red Daugherty [facility] 1.2.840.114 350.1.13.10 4.2.7.2.686 [id number] [facility] 2022-12-26 00:00:00 2022-12-26 00:00:00 Orders Only Doctor Unassigned, [place] [facility] 1.2.840.114 350.1.13.10 4.2.7.2.686 [id number] [facility] 2022-11-05 00:00:00 2022-11-05 00:00:00 Telephone Dat [facility] 1.2.840.114 350.1.13.10 4.2.7.2.686 [id number] [facility] 2022-11-04 00:00:00 2022-11-04 00:00:00 Orders Only Doctor Unassigned, [place] [facility] 1.2.840.114 350.1.13.10 4.2.7.2.686 [id number] [facility] 2022-09-09 00:00:00 2022-09-09 00:00:00 Orders Only Doctor Unassigned, [place] [facility] 1.2.840.114 350.1.13.10 4.2.7.2.686 [id number] [facility] 2022-09-03 14:15:00 2022-09-03 15:29:47 Outpatient R ROBINA [facility] [id number] [facility] 2022-09-03 14:15:00 2022-09-03 15:29:47 Office Visit Robina [facility] 1.2.840.114 350.1.13.10 4.2.7.2.686 [id number] [facility] 2022-08-08 11:20:33 2022-08-08 23:59:00 Outpatient R DAT [facility] [id number] [facility] 2022-08-08 11:20:33 2022-08-08 23:59:00 [facility] 1.2.840.114 350.1.13.10 4.2.7.2.686 [id number] [facility] 2022-08-07 00:00:00 2022-08-07 00:00:00 [facility] 1.2.840.114 350.1.13.10 4.2.7.2.686 [id number] [facility] 2022-08-06 14:45:00 2022-08-06 15:43:13 Outpatient R ROBINA [facility] [id number] [facility] 2022-08-06 14:45:00 2022-08-06 15:43:13 [facility] 1.2.840.114 350.1.13.10 4.2.7.2.686 [id number] [facility] 2022-08-06 14:00:00 2022-08-06 14:15:00 Sm[employer] And Flame Specialist Visit 2, Adc Lab Red Daugherty [facility] 1.2.840.114 350.1.13.10 4.2.7.2.686 [id number] [facility] 2022-08-05 00:00:00 2022-08-05 00:00:00 Orders Only Doctor Unassigned, [place] [facility] 1.2840.114 350.1.13.10 4.2.7.2.686 [id number] [facility] 2022-08-01 00:00:00 2022-08-01 00:00:00 Orders Only Doctor Unassigned, [place] [facility] 1.2840.114 350.1.13.10 4.2.7.2.686 [id number] [facility] 2022-08-01 00:00:00 2022-08-01 00:00:00 Telephone Red Daugherty [facility] 1..840.114 350.1.13.10 4.2.7.2.686 [id number] [facility] 2022-04-07 13:45:00 2022-04-07 14:57:34 [facility] [id number] [facility] 2022-04-07 13:45:00 2022-04-07 14:57:34 [facility] 1..840.114 350.1.13.10 4.2.7.2.686 [id number] [facility] 2022-01-06 14:15:00 2022-01-06 15:49:34 Outpatient R ARIA QUARLESTNEY [facility] [id number] [facility] 2022-01-06 14:15:00 2022-01-06 15:49:34 [facility] 1..840.114 350.1.13.10 4.2.7.2.686 [id number] [facility] 2021-11-25 14:00:00 2021-11-25 15:08:36 Outpatient R RED DAUGHERTY [facility] [id number] [facility] 2021-11-25 14:00:00 2021-11-25 15:08:36 Office Visit Red Daugherty , Adc Surg Spec Procedure [facility] 1..840.114 350.1.13.10 4.2.7.2.686 [id number] [facility] 2021-11-25 00:00:00 2021-11-25 00:00:00 Orders Only Doctor Unassigned, [place] [facility] 1.2.840.114 350.1.13.10 4.2.7.2.686 [id number] [facility] 2021-11-21 14:00:00 2021-11-21 15:35:44 Outpatient R DAT [facility] [id number] [facility] 2021-11-21 14:00:00 2021-11-21 15:35:44 Nurse Visit Nurse, [facility]ILDING 1.2.840.114 350.1.13.10 4.2.7.2.686 [id number] [facility] 2021-11-20 00:00:00 2021-11-20 00:00:00 Telephone Dat [facility] 1.2.840.114 350.1.13.10 4.2.7.2.686 [id number] [facility] 2021-11-18 00:00:00 2021-11-18 00:00:00 Telephone Dat [facility] 1.2.840.114 350.1.13.10 4.2.7.2.686 [id number] [facility] 2021-11-18 00:00:00 2021-11-18 00:00:00 Case Management Glenys Quarles [facility] 1.2.840.114 350.1.13.10 4.2.7.2.686 [id number] [facility] 2021-11-13 13:00:00 2021-11-13 13:30:00 Nurse Visit Nurse, [facility] 1.2.840.114 350.1.13.10 4.2.7.2.686 [id number] [facility] 2021-11-13 13:00:00 2021-11-13 13:00:00 Outpatient R DAT [facility] [id number] [facility] 2021-11-08 00:00:00 2021-11-08 00:00:00 Telephone Dat [facility] 1.2.840.114 350.1.13.10 4.2.7.2.686 [id number] [facility] 2021-10-30 13:15:00 2021-10-30 13:50:02 Nurse Visit [facility], [facility] 1.2.840.114 350.1.13.10 4.2.7.2.686 [id number] [facility] 2021-10-30 13:15:00 2021-10-30 13:15:00 Outpatient R DAT [facility] [id number] [facility] 2021-10-22 00:00:00 2021-10-22 00:00:00 Telephone QuarlesGlenys [facility]ILD[facility] 1.2.840.114 350.1.13.10 4.2.7.2.686 [id number] [facility] 2021-10-18 14:15:00 2021-10-18 14:24:57 [id number] [facility] 2021-10-18 14:15:00 2021-10-18 14:24:57 Nurse Visit [facility], [facility] 1.2.840.114 350.1.13.10 4.2.7.2.686 [id number] [facility] 2021-09-18 13:30:00 2021-09-18 14:32:42 [facility] [id number] [facility] 2021-09-18 13:30:00 2021-09-18 14:32:42 [facility] 1.2.840.114 350.1.13.10 4.2.7.2.686 [id number] [facility] 2021-09-11 14:00:00 2021-09-11 14:00:00 Out[facility] [id number] [facility] 2021-05-27 15:30:00 2021-05-27 16:16:00 Outpatient R DAT [facility] [id number] [facility] 2021-05-27 15:30:00 2021-05-27 16:16:00 Office Visit Red Daugherty, Adc Surg Spec Procedure [facility] 1.2.840.114 350.1.13.10 4.2.7.2.686 [id number] [facility] 2021-05-17 14:00:00 2021-05-17 14:23:19 [facility] [id number] [facility] 2021-05-17 14:00:00 2021-05-17 14:23:19 Nurse Visit Nurse, [facility] Surgery Dat [facility] 1.2.840.114 350.1.13.10 4.2.7.2.686 [id number] [facility] 2021-04-15 09:00:00 2021-04-15 10:22:20 Outpatient R RED DAUGHERTY [facility] [id number] [facility] 2021-04-15 09:00:00 2021-04-15 10:22:20 [facility] 1..840.114 350.1.13.10 4.2.7.2.686 [id number] [facility] 2021-04-15 09:00:00 2021-04-15 10:22:20 Outpatient R RED DAUGHERTY [facility] [id number] [facility] 2021-04-15 09:00:00 2021-04-15 10:22:20 [facility] [id number] [facility] 2021-04-15 09:00:00 2021-04-15 09:30:00 Office Visit Red Daugherty, Adc [facility]urg Spec [facility] 1..840.114 350.1.13.10 4.2.7.2.686 [id number] [facility] 2021-04-15 09:00:00 2021-04-15 09:00:00 Outpatient R [facility] [id number] [facility] 2021-04-15 09:00:00 2021-04-15 09:00:00 [id number] 2021-04-15 09:00:00 2021-04-15 09:00:00 [facility] [id number] [facility] 2021-04-15 09:00:00 2021-04-15 09:00:00 [facility] [id number] [facility] 2021-04-15 09:00:00 2021-04-15 09:00:00 Outpatient R [facility] [id number] [facility] 2021-04-15 00:00:00 2021-04-15 00:00:00 Orders Only Doctor Unassigned, Whitmore [facility] 1..840.114 350.1.13.10 4.2.7.2.686 [id number] [facility] 2021-04-03 09:30:00 2021-04-03 10:05:48 Outpatient R TERRI SHETH [facility] [id number] [facility] 2021-04-03 09:30:00 2021-04-03 09:45:00 Nurse Visit Nurse, [facility] Terri Alfredo [facility] 1..840.114 350.1.13.10 4.2.7.2.686 [id number] [facility] 2021-04-03 09:30:00 2021-04-03 09:30:00 Outpatient R TERRI SHETH [facility] [id number] [facility] 2021-03-28 10:00:00 2021-03-28 10:00:00 [facility] [id number] [facility] 2021-03-28 10:00:00 2021-03-28 10:00:00 Outpatient R DTA [facility] [id number] [facility] 2021-03-27 00:00:00 2021-03-27 00:00:00 Telephone Dat [facility] 1.2.840.114 350.1.13.10 4.2.7.2.686 [id number] [facility] 2021-03-20 14:15:00 2021-03-20 14:16:10 Outpatient R TERRI SHETH [facility] [id number] [facility] 2021-03-20 14:15:00 2021-03-20 14:16:10 Nurse Visit Nurse, [facility] Adore Alfredoela Tom [facility] 1.2.840.114 350.1.13.10 4.2.7.2.686 [id number] [facility] 2021-03-20 14:15:00 2021-03-20 14:16:10 Outpatient R TERRI SEHTH [facility] [id number] [facility] 2021-02-21 15:45:00 2021-02-21 17:15:54 Outpatient R RED DAUGHERTY [facility] [id number] [facility] 2021-02-21 15:45:00 2021-02-21 17:15:54 Office Visit Red Daugherty, Adc Surg Spec [facility] 1.2.840.114 350.1.13.10 4.2.7.2.686 [id number] [facility] 2021-02-21 15:45:00 2021-02-21 17:15:54 Outpatient R RED DAUGHERTY [facility] [id number] [facility] 2021-02-21 15:45:00 2021-02-21 17:15:54 Outpatient R RED DAUGHERTY [facility] [id number] [facility] 2021-02-21 15:45:00 2021-02-21 17:15:54 Outpatient R RED DAUGHERTY [facility] [id number] [facility] 2021-02-11 13:30:00 2021-02-11 14:35:32 [facility] [id number] [facility] 2021-02-11 13:30:00 2021-02-11 14:35:32 Outpatient R RED DAUGHERTY [facility] [id number] [facility] 2021-02-11 13:30:00 2021-02-11 14:35:32 [facility] [id number] [facility] 2021-02-11 13:30:00 2021-02-11 13:45:00 Nurse Visit Nurse, [facility] 1.2.840.114 350.1.13.10 4.2.7.2.686 [id number] [facility] 2021-02-11 13:30:00 2021-02-11 13:30:00 Outpatient R LEXISRED Keller [facility] [id number] [facility] 2021-02-11 00:00:00 2021-02-11 00:00:00 Orders Only Doctor Unassigned, Whitmore [facility] 1.2.840.114 350.1.13.10 4.2.7.2.686 [id number] [facility] 2021-01-31 00:00:00 2021-01-31 00:00:[address] [facility] 1.2.840.114 350.1.13.10 4.2.7.2.686 [id number] [facility] 2021-01-28 14:06:17 2021-01-28 15:43:02 Office Visit Terri Sheth [facility] 1.2.840.114 350.1.13.10 4.2.7.2.686 [id number] [facility] 2021-01-28 14:00:00 2021-01-28 15:43:02 Outpatient R TERRI SHETH [facility] [id number] [facility] 2021-01-28 14:00:00 2021-01-28 15:43:02 Outpatient R TERRI SHETH [facility] [id number] [facility] 2021-01-28 14:00:00 2021-01-28 15:43:02 Outpatient R TERRI SHETH [facility] [id number] [facility] 2021-01-28 14:00:00 2021-01-28 15:43:02 Outpatient R TERRI SHETH [facility] [id number] [facility] 2020-08-30 00:00:00 2020-08-30 00:00:00 Orders Only Doctor Unassigned, Whitmore [facility] 1.2.840.114 350.1.13.10 4.2.7.2.686 [id number] [facility] 2020-07-30 15:30:00 2020-07-30 16:12:10 Outpatient R TERRI SHETH [facility] [id number] [facility] 2020-07-30 15:30:00 2020-07-30 16:12:10 Outpatient R DOMENICTERRI [facility] [id number] [facility] 2020-07-30 15:29:48 2020-07-30 16:12:10 Office Visit Domenic Terri Santos [facility] 1.2.840.114 350.1.13.10 4.2.7.2.686 [id number] [facility] 2020-07-30 15:30:00 2020-07-30 15:30:00 Outpatient R DOMENICTERRI [facility] [id number] [facility] 2020-06-20 13:30:00 2020-06-20 14:53:03 Outpatient R DOMENIC TERRI [facility] [id number] [facility] 2020-06-20 13:30:00 2020-06-20 14:53:03 Outpatient R DOMENIC TERRI [facility] [id number] [facility] 2020-06-20 13:27:48 2020-06-20 14:53:03 Office Visit Domenic Terri Santos [facility] 1.2.840.114 350.1.13.10 4.2.7.2.686 [id number] [facility] 2020-06-20 13:30:00 2020-06-20 13:30:00 Outpatient R DOMENIC TERRI [facility] [id number] [facility] 2020-06-20 00:00:00 2020-06-20 00:00:00 Orders Only Doctor Unassigned, Whitmore [facility] 1.2.840.114 350.1.13.10 4.2.7.2.686 [id number] [facility] 2020-05-07 14:15:00 2020-05-07 15:21:54 [facility] [id number] [facility] 2020-05-07 14:15:00 2020-05-07 15:21:54 Outpatient R DAT [facility] [id number] [facility] 2020-05-07 14:11:00 2020-05-07 15:21:54 Office Visit Dat [facility] 1.2.840.114 350.1.13.10 4.2.7.2.686 [id number] [facility] 2020-05-07 14:15:00 2020-05-07 14:15:00 [facility] [id number] [facility] 2020-04-24 14:00:00 2020-04-24 14:07:17 Outpatient R DAT [facility] [id number] [facility] 2020-04-24 14:00:00 2020-04-24 14:07:17 Outpatient R DAT [facility] [id number] [facility] 2020-04-24 14:00:00 2020-04-24 14:07:17 Outpatient R DAT [facility] [id number] [facility] 2020-04-24 14:00:00 2020-04-24 14:00:00 Outpatient R [facility] [id number] [facility] 2020-04-23 00:00:00 2020-04-23 00:00:00 Telephone Dat [facility] 1.2.840.114 350.1.13.10 4.2.7.2.686 [id number] [facility] 2020-04-06 14:00:00 2020-04-06 14:00:00 Outpatient R [facility] [id number] [facility] 2020-04-06 14:00:00 2020-04-06 10:04:45 Outpatient R DAT [facility] [id number] [facility] 2020-04-06 14:00:00 2020-04-06 10:04:45 Outpatient R DAT [facility] [id number] [facility] 2020-04-06 09:54:12 2020-04-06 10:04:45 Nurse Visit [facility], [facility] 1.2.840.114 350.1.13.10 4.2.7.2.686 [id number] [facility] 2020-03-15 11:00:00 2020-03-15 12:14:34 Outpatient R DAT [facility] [id number] [facility] 2020-03-15 11:00:00 2020-03-15 12:14:34 Outpatient R DAT [facility] [id number] [facility] 2020-03-15 10:54:44 2020-03-15 12:14:34 Nurse Visit Nurse, [facility] 1.2.840.114 350.1.13.10 4.2.7.2.686 [id number] [facility] 2020-03-15 11:00:00 2020-03-15 11:00:00 Outpatient R [facility] [id number] [facility] 2020-03-15 00:00:00 2020-03-15 00:00:00 Orders Only Doctor Unassigned, Whitmore [facility] 1.2.840.114 350.1.13.10 4.2.7.2.686 [id number] [facility] 2020-03-12 14:00:00 2020-03-12 14:34:26 [facility] [id number] [facility] 2020-03-12 14:00:00 2020-03-12 14:34:26 Outpatient R DAT [facility] [id number] [facility] 2020-03-12 13:35:40 2020-03-12 14:34:26 Nurse Visit Nurse, [facility] 1.2.840.114 350.1.13.10 4.2.7.2.686 [id number] [facility] 2020-03-12 14:00:00 2020-03-12 14:00:00 [facility] [id number] [facility] 2020-03-09 13:03:03 2020-03-09 13:28:10 [facility] 1.2.840.114 350.1.13.10 4.2.7.2.686 [id number] [facility] 2020-03-09 13:00:00 2020-03-09 13:28:10 [facility] [id number] [facility] 2020-03-09 13:00:00 2020-03-09 13:28:10 [facility] [id number] [facility] 2020-03-09 13:00:00 2020-03-09 13:00:00 Outpatient R [facility] [id number] [facility] 2020-02-14 00:00:00 2020-02-14 00:00:00 Telephone Dat [facility] 1.2.840.114 350.1.13.10 4.2.7.2.686 [id number] [facility] 2020-02-07 00:00:00 2020-02-07 00:00:00 Telephone Dat [facility] 1.2.840.114 350.1.13.10 4.2.7.2.686 [id number] [facility] 2020-02-06 09:09:56 2020-02-06 11:03:21 Office Visit Dat [facility] 1.2.840.114 350.1.13.10 4.2.7.2.686 [id number] [facility] 2020-02-06 09:15:00 2020-02-06 09:15:00 Outpatient R DAT [facility] [id number] [facility] 2020-01-31 10:48:00 2020-02-01 13:51:00 Hospital Encounter Dat [facility] 1.2.840.114 350.1.13.10 4.2.7.2.686 [id number] [facility] 2020-01-30 14:56:15 2020-01-30 15:11:15 Laboratory Only Only, [facility] 1.2.840.114 350.1.13.10 4.2.7.2.686 [id number] [facility] 2020-01-30 14:45:00 2020-01-30 14:45:00 Outpatient R [facility] [id number] [facility] 2020-01-30 00:00:00 2020-01-30 00:00:00 Orders Only Doctor Unassigned, Whitmore [facility] 1.2840.114 350.1.13.10 4.2.7.2.686 [id number] [facility] 2020-01-18 00:00:00 2020-01-18 00:00:00 [facility] 1.20.114 350.1.13.10 4.2.7.2.686 [id number] [facility] 2020-01-09 11:19:20 2020-01-09 13:02:24 Telemedici ne Visit Dat [facility] 1.2.114 350.1.13.10 4.2.7.2.686 [id number] [facility] 2020-01-09 11:30:00 2020-01-09 11:30:00 Outpatient R RED DAUGHERTY [facility] [id number] [facility] 2019-12-31 02:52:00 2019-12-31 02:52:00 Outpatient [place] _A_AH VF VFP [id number] [place] 2019-12-27 00:00:00 2019-12-27 00:00:00 Orders Only Doctor Unassigned, Whitmore [facility] 1.2.114 350.1.13.10 4.2.7.2.686 [id number] [facility] 2019-12-19 13:24:02 2019-12-19 16:03:35 Office Visit Red Daugherty Rm, Adc Surg Spec Procedure [facility] 1.2.114 350.1.13.10 4.2.7.2.686 [id number] [facility] 2019-12-19 13:30:00 2019-12-19 13:30:00 Outpatient R RED DAUGHERTY [facility] [id number] [facility] 2019-12-15 13:19:31 2019-12-15 15:37:37 Office Visit Marcin Escobedo, Ronald Uro Procedure [facility] 1.2.840.114 350.1.13.10 4.2.7.2.686 [id number] [facility] 2019-12-15 14:00:00 2019-12-15 14:00:00 [facility] [id number] [facility] 2019-12-12 00:00:00 2019-12-12 00:00:00 Telephone Gregg [facility] 1.2.840.114 350.1.13.10 4.2.7.2.686 [id number] [facility] 2019-12-08 14:51:56 2019-12-09 09:27:14 Office Visit Marcin Escobedo, Ronald Uro Procedure [facility] 1.2.840.114 350.1.13.10 4.2.7.2.686 [id number] [facility] 2019-12-08 14:00:00 2019-12-08 14:00:00 Outpatient MARCIN YU [facility] [id number] [facility] 2019-12-05 00:00:00 2019-12-05 00:00:00 Transition of Care [place] 1.2.840.114 350.1.13.10 4.2.7.2.686 [id number] [facility] 2019-11-29 17:47:00 2019-12-02 16:54:00 Hospital Encounter ManuelfranciscoTunde [facility] 1.2.840.114 350.1.13.10 4.2.7.2.686 [id number] [facility] 2019-11-29 00:00:00 2019-11-29 00:00:00 Telephone Terri Sheth [facility] 1.2.840.114 350.1.13.10 4.2.7.2.686 [id number] [facility] 2019-11-28 13:57:45 2019-11-28 23:59:00 Hospital Encounter Terri Sheth [facility] 1.2.840.114 350.1.13.10 4.2.7.2.686 [id number] [facility] 2019-11-28 00:00:00 2019-11-28 00:00:00 Outpatient R TERRI SHETH [facility] [id number] [facility] 2019-11-21 10:10:30 2019-11-21 12:03:21 [facility] 1.2.840.114 350.1.13.10 4.2.7.2.686 [id number] [facility] 2019-11-21 11:25:58 2019-11-21 11:40:58 [employer] Fl[employer] Specialist Visit 2, Adc Lab Dat [facility] 1.2.840.114 350.1.13.10 4.2.7.2.686 [id number] [facility] 2019-11-21 10:00:00 2019-11-21 10:00:00 Outpatient R DAT [facility] [id number] [facility] 2019-11-21 00:00:00 2019-11-21 00:00:00 Orders Only Doctor Unassigned, Whitmore [facility] 1.2.840.114 350.1.13.10 4.2.7.2.686 [id number] [facility] 2019-10-14 11:41:00 2019-10-14 11:41:00 [facility] [id number] [facility] 2019-09-13 11:00:00 2019-09-13 11:00:00 [facility] [id number] [facility] 2019-09-02 09:43:00 2019-09-02 09:43:00 [facility] [id number] [facility] 2019-09-02 09:00:00 2019-09-02 09:00:00 [facility] [id number] [facility] 2019-08-31 08:30:00 2019-08-31 08:30:00 [facility] [id number] [facility] 2019-08-25 14:00:00 2019-08-25 14:00:00 [facility] [id number] [facility] 2019-08-18 15:00:00 2019-08-18 15:00:00 [facility] [id number] [facility] 2019-04-06 07:26:00 2019-04-06 07:26:00 Outpatient [place]-Mbayo _A_AH VFP VFP [id number] [facility] Practic e Results Test Description Test Time Test Comments Results Result Co mments Source [facility], [id number] 20:49:00 * Test Item Value Reference Range [...] clear Lab Interpretation (test cod e = [id number]) Normal [facility] URINALYSIS, [id number] 19:25:00 * Test Item Value Reference Range [...] U APPEAR (test code = 3267) [facility] [id number] 19:25:00 * Test Item Value Reference Range [...] U APPEAR (test code = 3267) Clear [facility] UR[facility], [id number] 19:19:00 * Test Item Value Reference Range [...] U APPEAR (test code = 3267) Clear [facility]
[2023-08-08] MEDS ORDERED: TDAP (DIPHTH,PERTUSS(ACELL),TET VAC) 0.5 ML VIAL IMVAC ONE (23:23)
[2023-08-08 23:34] LABS: Absolute Eosinophils 0.6 K/uL (0-0.5); Absolute Lymphocytes (CBC) 0.7 K/uL (0.7-4.9); Absolute Monocytes 0.5 K/uL (0.1-1.3); Absolute Neutrophil 5.4 K/uL (1.8-8.0); Basophils % 0.5 % (0-1.3); Eosinophils % 8.2 % (0-4.4); Hematocrit 31.2 % (39.6-49.0); Hemoglobin 10.5 g/dL (13.6-17.9); MCH 32.3 pg (27.0-35.0); MCHC 33.6 g/dL (32.0-36.0); MCV 96.2 fL (80-100); Monocytes % 7.1 % (3.3-12.3); Neutrophils % 74.2 % (41.7-73.7); Platelets 254 thou/uL (152-406); RBC Red Blood Cell Count 3.24 M/uL (4.33-5.43); Red Cell Distribution Width 14.8 % (12.1-15.2)
[2023-08-08 23:38] LABS: Anion Gap 14.2 mEq/L (5.0-15.0); Potassium 3.2 mEq/L (3.5-5.1); Troponin High Sensitivity 8.4 pg/mL (<58.9)
--- NOTE | 2023-08-09 01:02 | EDPHYS ---
Physician Documentation [facility] Name: Enzo Person Age: 83 yrs Sex: Male : 1940 Arrival Date: 08/08/2023 Time: 22:39 Bed 4 Private MD: ED Physician Marlon Schneider HPI: 08/07 22:50 This 83 yrs old Male presents to ER via Unassigned with complaints of fall, ec2 head injury. 22:50 Patient arrives today for evaluation after a ground-level fall. Reportedly was found on ec2 the ground. Patient reports that he has head pain, no loss of consciousness, no blood thinners. Patient with history of reported dementia. History gathered from EMS.. Historical: - Allergies: 22:55 PENICILLINS; al5 - PMHx: 22:55 Anemia; chronic back pain; Dementia; dysphasia; Hypothyroidism; al5 - Immunization history:: Adult Immunizations up to date, . - Infectious Disease History:: Denies. - Social history:: Smoking status: unknown. ROS: 22:50 Constitutional: as per hpi ec2 Exam: 22:50 Constitutional: GEN: No acute distress HEENT: -Head: no deformities -Eyes: EOMI CV: ec2 regular rate LUNGS: no respiratory distress ABD: non-tender SKIN: Occipital laceration noted. MSK: No C/T/L spine deformities RUE w/o bony deformity LUE w/o bony deformity RLE w/o bony deformity LLE w/o bony deformity NEURO: moves all extremities equally Vital Signs: 22:52 BP 114 / 92; Pulse 96; Resp 16; Temp 98; Pulse Ox 98% on R/A; Weight 54.43 kg; Height 5 al5 ft. 7 in. ; Pain 2/10; 22:58 BP 114 / 92; Pulse 96; Resp 18; Temp 98; Pulse Ox 98% on R/A; Pain 2/10; al5 08/08 00:00 BP 121 / 60; Pulse 98; Resp 16 S; Pulse Ox 100% on R/A; ha1 01:00 BP 121 / 57; Pulse 93; Resp 17 S; Pulse Ox 100% on R/A; ha1 02:07 BP 110 / 58; Pulse 90; Resp 17 S; Pulse Ox 100% on R/A; ha1 08/07 22:52 Body Mass Index 18.79 (54.43 kg, 170.18 cm) al5 08/07 22:52 Pain Scale: Adult al5 22:58 Pain Scale: Adult al5 Laceration: 08/07 23:31 Wound Repair of 3cm ( 1.2in ) subcutaneous laceration to scalp. Distal ec2 neuro/vascular/tendon intact. Skin closed with 4 1-0 Tabor using staple gun. Patient tolerated well. MDM: 22:49 Patient medically screened. ec2 22:50 Data reviewed: vital signs. ED course: Patient arrives today for evaluation after ec2 ground-level fall. Examination remarkable for well-appearing nontoxic individual was cooperative and in no acute distress. Will obtain lab work to evaluate for electrolyte disturbances, obtain EKG to evaluate for arrhythmia, will obtain CT scan of the head to evaluate for any intracranial process such as a brain bleed. Will also update tetanus status and clean the wound to evaluate for repair. . 08/08 00:25 ED course: Metabolic profile shows slight hypokalemia with potassium of 3.2, renal ec2 dysfunction with a creatinine of 4.75 and a GFR of 12, CBC shows slight anemia. Troponin is within normal ranges. When compared to external records, renal function, this is actually better . 00:25 ED course: Chest x-ray dependently reviewed and interpreted by me, shows no acute ec2 intrathoracic process.. 01:01 ED course: CT of the head and C-spine showed no acute traumatic pathology. Will ec2 discharge home. Patient with chronic kidney disease, laceration. 08/07 22:50 Order name: Basic Metabolic Panel; Complete Time: 00:24 ec2 08/07 22:50 Order name: CBC with Diff; Complete Time: 00:24 ec2 08/07 22:50 Order name: Troponin HS; Complete Time: 00:24 ec2 08/07 22:50 Order name: XRAY Chest (1 view) ec2 08/07 22:50 Order name: CT Head C Spine ec2 08/07 22:50 Order name: EKG; Complete Time: 22:50 ec2 08/07 22:50 Order name: Cardiac monitoring; Complete Time: 23:20 ec2 08/07 22:50 Order name: EKG - Nurse/Tech; Complete Time: 23:20 ec2 08/07 22:50 Order name: IV Saline Lock; Complete Time: 23:20 ec2 08/07 22:50 Order name: Labs collected and sent; Complete Time: 23:20 ec2 08/07 22:50 Order name: O2 Per Protocol; Complete Time: 23:20 ec2 08/07 22:50 Order name: O2 Sat Monitoring; Complete Time: 23:20 ec2 08/07 22:50 Order name: Wound Care; Complete Time: 23:21 ec2 Administered Medications: 08/07 23:31 Drug: Boostrix Tdap IM 0.5 ml IM once; as a single dose Route: IM; Site: left deltoid; al5 08/08 00:00 Follow up: Response: (VIS) Vaccine information sheet provided today. Questions and/or ha1 concerns addressed. VIS edition date: Sep 21, 2020.; No adverse reaction Disposition Summary: 08/09/23 01:01 Discharge Ordered Notes: You should have the fransisca removed in 7 to 10 days. Location: Home ec2 Condition: Stable ec2 Diagnosis - Scalp Laceration/ Open wound of scalp ec2 Followup: ec2 - With: Private Physician - When: - Reason: Re-evaluation by your physician Discharge Instructions: - Discharge Summary Sheet ec2 - Sutures, Tabor, or Adhesive Wound Closure, [id number] ec2 Forms: - Medication Reconciliation Form ec2 - Antibiotic Education ec2 - Prescription Opioid Use ec2 - Patient Portal Instructions ec2 - Leadership Thank You Letter ec2 Signatures: Dispatcher [employer] Marlon Crisostomo MD MD ec2 Nurys West RN RN al5 Becki Sandoval RN ha1
--- NOTE | 2023-08-09 01:02 | ER ---
Nurse's Notes [facility] Name: Enzo Person Age: 83 yrs Sex: Male : 1940 Arrival Date: 08/08/2023 Time: 22:39 Bed 4 Private MD: Diagnosis: Scalp Laceration/ Open wound of scalp Presentation: 08/07 22:52 Chief complaint: EMS states: pt had an unwitnessed fall at [facility], [facility] unknown LOC. denies blood thinners. Pt states he was looking for his house shoes in his closet and does not remember falling. Nurses at the [facility] state he was found supine with lac to the back of the head. Coronavirus screen: Client denies travel out of the [place] in the last 14 days. At this time, the client does not indicate any symptoms associated with coronavirus-19. Ebola Screen: No symptoms or risks identified at this time. Initial Sepsis Screen: Does the patient meet any 2 criteria? HR > 90 bpm. No. Patient's initial sepsis screen is negative. Does the patient have a suspected source of infection? No. Patient's initial sepsis screen is negative. Risk Assessment: Do you want to hurt yourself or someone else? Patient reports no desire to harm self or others. Onset of symptoms was August 08, 2023. Care prior to arrival: None. Transition of care: patient was received from another setting of care (long-term care facility), [facility]. 22:52 Method Of Arrival: EMS: [facility] al5 22:52 Acuity: HUMERA 3 al5 Triage Assessment: 22:55 General: Appears in no apparent distress. Behavior is calm, cooperative. Pain: al5 Complains of pain in scalp Pain currently is 2 out of 10 on a pain scale. Neuro: Level of Consciousness is awake, alert, obeys commands, Oriented to person, place, time, situation, Speech is normal, Facial symmetry appears normal. Cardiovascular: No deficits noted. Patient's skin is warm and dry. Rhythm is sinus rhythm. Respiratory: No deficits noted. Airway is patent Trachea midline Respiratory effort is even, unlabored, Respiratory pattern is regular. Derm: Skin patient has lac to back of head without perfuse bleeding. pt denies any visual changes or head ache, just head pain around the lac area from where he fell. Skin is pink, warm \\T\\ dry. normal. Historical: - Allergies: 22:55 PENICILLINS; al5 - PMHx: 22:55 Anemia; chronic back pain; Dementia; dysphasia; Hypothyroidism; al5 - Immunization history:: Adult Immunizations up to date, . - Infectious Disease History:: Denies. - Social history:: Smoking status: unknown. Screenin:58 [facility] ED Fall Risk Assessment (Adult) History of falling in the last 3 months, al5 including since admission Yes- single mechanical fall (1 pt) Confusion or Disorientation No (0 pts) Intoxicated or Sedated No (0 pts) Impaired Gait Yes (1 pt) Mobility Assist Device Used Yes (1 pt) Altered Elimination No (0 pt) Score/Fall Risk Level 3 or more points = High Risk Oriented to surroundings, Maintained a safe environment, Educated pt \\T\\ family on fall prevention, incl call for assistance when getting out of bed, Hourly rounding (assess needs \\T\\ fall precautionary measures) done, Apply high fall risk patient identification: yellow non skid footwear/ fall signage. Abuse screen: Denies threats or abuse. Denies injuries from another. Nutritional screening: No deficits noted. Tuberculosis screening: No symptoms or risk factors identified. Assessment: 22:58 General: see triage note. al5 08/08 00:15 Reassessment: Patient and/or family updated on plan of care and expected duration. Pain ha1 level reassessed. Patient is alert, oriented x 3, equal unlabored respirations, skin warm/dry/pink. 01:40 Reassessment: discharge pending on transportation attempted to give report to nursing [facility] home. 01:52 Reassessment: nurse to nurse report given to LVN. Deepika [facility] 01:54 Reassessment: family member at bedside stated " I can take him back to the nursing [facility].". 02:07 Reassessment: Patient and/or family updated on plan of care and expected duration. Pain ha1 level reassessed. Patient is alert, oriented x 3, equal unlabored respirations, skin warm/dry/pink. Vital Signs: 08/07 22:52 BP 114 / 92; Pulse 96; Resp 16; Temp 98; Pulse Ox 98% on R/A; Weight 54.43 kg; Height 5 al5 ft. 7 in. ; Pain 2/10; 22:58 BP 114 / 92; Pulse 96; Resp 18; Temp 98; Pulse Ox 98% on R/A; Pain 2/10; al5 08/08 00:00 BP 121 / 60; Pulse 98; Resp 16 S; Pulse Ox 100% on R/A; ha1 01:00 BP 121 / 57; Pulse 93; Resp 17 S; Pulse Ox 100% on R/A; ha1 02:07 BP 110 / 58; Pulse 90; Resp 17 S; Pulse Ox 100% on R/A; ha1 08/07 22:52 Body Mass Index 18.79 (54.43 kg, 170.18 cm) al5 08/07 22:52 Pain Scale: Adult al5 22:58 Pain Scale: Adult al5 ED Course: 08/07 22:46 Patient arrived in ED. ec2 22:49 Marlon Schneider MD is Attending Physician. ec2 22:52 Nurys West RN is Primary Nurse. al5 22:55 Triage completed. al5 23:00 Arm band placed on right wrist. ha1 23:05 XRAY Chest (1 view) In Process Unspecified. EDMS 23:20 Basic Metabolic Panel Sent. al5 23:20 CBC with Diff Sent. al5 23:20 Troponin HS Sent. al5 23:31 Patient has correct armband on for positive identification. Fall risk band placed. Bed al5 in low position. Call light in reach. Side rails up X2. 23:33 Inserted saline lock: 22 gauge in left antecubital area, using aseptic technique. al5 Irrigation of laceration on scalp irrigated with normal saline Patient tolerated well. Wound care: to laceration located on scalp was cleaned with irrigated with dressed with Patient tolerated well. 23:34 Assist provider with laceration repair on back of head that was 2.5 cm. or less using al5 fransisca. Set up tray. Performed by Marlon Schneider MD Patient tolerated well. 08/08 00:01 CT Head C Spine In Process Unspecified. EDMS 02:09 IV discontinued, intact, bleeding controlled, No redness/swelling at site. Pressure ha1 dressing applied. 02:09 Provided Education on: wound care and suture removal . ha1 Administered Medications: 08/07 23:31 Drug: Boostrix Tdap IM 0.5 ml IM once; as a single dose Route: IM; Site: left deltoid; al5 08/08 00:00 Follow up: Response: (VIS) Vaccine information sheet provided today. Questions and/or ha1 concerns addressed. VIS edition date: Sep 21, 2020.; No adverse reaction Medication: 08/07 23:31 Vaccine Information Statement (VIS) provided today. Questions and/or concerns al5 addressed. VIS edition date: September 21, 2020. Outcome: 08/08 01:01 Discharge ordered by . ec2 02:09 Discharged to home via wheelchair, with family, ha1 02:09 Condition: stable 02:09 Discharge instructions given to patient, family, Instructed on discharge instructions, follow up and referral plans. Demonstrated understanding of instructions, follow-up care, 02:10 Patient left the ED. ha1 Signatures: Dispatcher [employer] Becki Victoria RN RN ha1 Marlon Schneider MD MD ec2 Nurys West RN RN al5
[2023-08-09 02:30] VITALS: TEMP 98
[2023-08-09 02:54] VITALS: BP 110/58; O2SAT 100
--- NOTE | 2023-08-10 13:07 | EKG ---
Test Date: 2023-08-08 Test Time: 23:08:35 Fishing Guide: ANTONIA MEASUREMENT RESULTS: Intervals: Rate: 99 MN: 142 QRSD: 90 QT: 358 QTc: 459 [place]: P: 87 MN: 142 QRS: 72 T: 81 INTERPRETIVE STATEMENTS: Normal sinus rhythm Normal ECG Compared to ECG 07/01/2023 08:47:51 Fusion complex(es) no longer present Ventricular premature complex(es) no longer present ST (T wave) deviation no longer present Electronically Signed On 08-10-23 13:03:38 CDT by Joe Ruiz
--- NOTE | 2023-08-10 21:14 | RAD REPORT ---
EXAM DESCRIPTION: RAD - Chest Single View - 08/08/2023 11:03 pm CLINICAL HISTORY: 83 years Male, TRAUMA TECHNIQUE: 1 view (Single frontal view of the chest) COMPARISON: None. FINDINGS: LINES AND TUBES: None. CARDIOVASCULAR STRUCTURES: Normal heart size. No pulmonary venous congestion. LUNGS: Hyperinflated lungs. No confluent areas of acute consolidation. PLEURA: No layering pleural effusions. No pneumothorax. BONES: No acute osseous abnormality of the thorax. IMPRESSION: 1. No acute cardiopulmonary disease. 2. Hyperinflated lungs. Electronically signed by: Hosea Strong MD 08/08/2023 11:56 PM CDT RP N Due to temporary technical issues with the PACS/Fluency reporting system, reports are being signed by the in house radiologists without review as a courtesy to insure prompt reporting. The interpreting radiologist is fully responsible for the content of the report.
--- NOTE | 2023-08-10 22:27 | RAD REPORT ---
EXAM DESCRIPTION: CT - Head C Spine Mpr Wo Con - 08/09/2023 7:16 am CLINICAL HISTORY: 83 years, Male, TRAUMA COMPARISON: 08/07/2023 TECHNIQUE: CT imaging of the head and cervical spine were performed without IV contrast. Subsequent 2-D multiplanar reformats were generated in the sagittal and coronal plane and reviewed. This exam was performed according to our departmental dose-optimization program which includes use of Automated Exposure Control, adjustment of the mA and/or kV according to patient size and/or use of i terative reconstruction technique. Contrast: No intravenous contrast. FINDINGS: Head: Brain: There is mild diffuse parenchymal volume loss. Scattered foci of subcortical and periventricul ar hypodense signal are noted consistent with chronic small vessel ischemic change. Parenchymal atten uation and morphology are otherwise normal. No acute hemorrhage. Dunn-white matter differentiation is maintained. No mass effect or midline shift. Ventricles/CSF spaces: Normal size and morphology. Orbits: Normal. Paranasal sinuses: Imaged paranasal sinuses are clear. Mastoids/middle ears: Clear. Bones: Calvarium, skull base, and imaged facial bones are normal. Scalp/facial soft tissues: There has been interval placement of superficial skin fransisca within the o ccipital area at the site of previous described injury Cervical spine: Alignment is anatomic. No acute fracture or subluxation. Vertebral body heights are preserved. There is degenerative disc disease with anterior and posterior osteophyte complex at C5/C6. No significant spinal canal narrowing Intraspinal contents appear grossl y normal. No epidural hematoma. Cervical soft tissues are unremarkable. Imaged lung apices demonstrate bilateral apical pleural thickening and calcifications suggesting old granulomatous disease. IMPRESSION: No acute intracranial findings. Mild diffuse parenchymal volume loss with chronic small vessel ischemic change. No acute fracture or subluxation of the cervical spine. 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 Electronically signed by: Gurvinder Stafford MD 08/09/2023 12:57 AM CDT RP Due to temporary technical issues with the PACS/Fluency reporting system, reports are being signed by the in house radiologists without review as a courtesy to insure prompt reporting. The interpreting radiologist is fully responsible for the content of the report.
== END 2023-08-09 02:10 | disposition home or self-care (01) ==
LOC: ER 22:39
PROC: 0HQ0XZZ Repair Scalp Skin, External Approach (ICD-10-PCS; principal; 2023-08-09)
DX: S01.01XA Laceration without foreign body of scalp, initial encounter (principal); W18.30XA Fall on same level, unspecified, initial encounter
CPT/HCPCS: 12001; 36415; 70450; 71045; 72125; 80048; 84484; 85025; 93005; 96372; 99285

== ENCOUNTER 2023-08-09 14:42 | Emergency (ER) | payer OTHER ==
--- OUTSIDE RECORDS SUMMARY | 2023-08-09 14:45 | XMS REPORT | Continuity of Care Document ---
Author Name Unknown Address [address] [facility]. [address] [place] [address] [facility] Address [address] [facility] [address] [place] [address] Care Team Providers Care Industrial Waste Treatment Technician Name Role Phone MARVIN SNELL Primary Care Physician Unavailab Marvin Agruello Attending Clinician Unavailable RED DAUGHERTY Attending Clinician Unavailable TUNDE LOPEZ Attending Clinician Unavailable GLENYS QUARLES Attending Clinician UnavailGlenys Mansfield Attending Clinician [phone] Doctor Unassigned, [place] Attending Clinician U bhavikailRed Kaufman MD Attending Clinician [phone], [facility] Lab Attending Clinician Unavailable , [facility] Surg Spec Procedure Attending Clinician Unavailable Nurse, [facility] Surgery Gu Attending Clinician UnaTERRI Andrade Attending Clinician Unavailable Terri Jolly Attending Clinician [phone] Only, [facility] Test Attending Clinician Unavailable Hosea Alcaraz MD Attending Clinician [phone] [place]-Constance_Tom_FRANCISCO Attending Clinician Unavailable Marcin Escobedo MD Attending Clinician [phone] Room, [facility] Uro Procedure Attending Clinician UnaMARCIN Mc Attending Clinician Unavailable Jaya MCCARTY, Lisa Attending Clinician Unavailable Tunde Lopez MD Attending Clinician [phone] RED DAUGHERTY Admitting Clinician Unavailable TUNDE LOPEZ Admitting Clinician Unavailable Red Daugherty MD Admitting Clinician [phone] [place]-Mbayo_A_AH Admitting Clinician Unavailable Tunde Lopez MD Admitting Clinician [phone] Payers Payer Name Policy Type Policy Number Effective Date Expirati on Date Source ROSALIND TROTTER [id number] 2019 00:00:00 [employer] (MEDICARE REPLACEMENT/ADVANT AGE - HMO) [id number] 2019 00:00:00 Problems Condition Name Condition Details Condition Category Status Onset Date Resolution Date Last Treatment Date Treating Clinician Comments Source Urinary retention Urinary retention Disease Active 2019-02 00:00: 00 Overview: Formattin g of this note might be different from the original. 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 Problem [facility] Allergies, Adverse Reactions, Alerts Allergy Name Allergy Type Status Severity Reaction(s) Onset Date Inactive Date Treating Clinician Comments Source PENICILL IN DRUG INGREDI Active Unknown-Cmnt 2019-02 0 00:00: 00 [facility] Penicill in Propensi ty to adverse reaction s Active Unknown - See comments 2019-02 0 00:00: 00 [facility] Social History Social Habit Start Date Stop Date Quantity Comments Source History of Tobacco Use [facility] Sex Assigned At [facility] Gender identity [facility] History SDOH Alcohol Std Drinks [facility] History SDOH Alcohol Binge [facility] History SDOH Alcohol Comment [facility] History of Social function 2023-03-20 00:00:00 2023-03-20 00:00:00 [facility] Alcohol intake 2023-03-20 00:00:00 2023-03-20 00:00:00 Lifetime non-drinker (finding) [facility] Exposure to SARS-CoV-2 (event) 2022-03-28 00:00:00 2022-04-07 13:24:00 Not sure [facility] Tobacco use and exposure 2021-09-18 00:00:00 2021-09-18 00:00:00 Smokeless tobacco non-user [facility] History SDOH Alcohol Frequency 2019-11-21 00:00:00 2019-11-21 00:00:00 1 [facility] Smoking Status Start Date Stop Date Source Never Smoker [facility] Medications Ordered Medication Name Filled Medication Name Start Date Stop Date Current Medication? Ordering Clinician Indication Dosage Frequency Signature (SIG) Comments Components Source tamsulosin 0.4 mg 24 hr capsule 03-20 13:56: 33 Yes .4mg 1 capsule. [facility] gentamicin injection 80 mg 2021-02 20:30: 00 11-25 19:43 :00 No [id number] 80mg [facility] Nitrofurant oin&Nit. Macrocryst (MACROBID) 100 mg capsule 2021-02 0 00:00: 00 11-26 04:59 :00 No [id number] 100mg Take 1 capsule by mouth in the morning and 1 capsule in the evening. Do all this for 7 days. [facility] sulfamethox azole-trime thoprim (BACTRIM DS) 800-160 mg per tablet 9-06 00:00: 00 10-28 04:59 :00 No [id number] 1{tbl} Take 1 tablet by mouth in the morning and 1 tablet in the evening. Do all this for 5 days. [facility] gabapentin 300 mg capsule 2019-02 00:00: 00 Yes [id number] 300mg Take 1 capsule by mouth every 8 (eight) hours as needed for Pain (scale 4-6). [facility] ibuprofen 200 mg tablet 2019-02 00:00: 00 Yes [id number] 400mg Take 2 tablets by mouth every 6 (six) hours as needed for Pain (scale 1-3). [facility] carvediloL 12.5 mg tablet 2019-02 0 00:00: 00 Yes [id number] 12.5mg Take 1 tablet by mouth 2 (two) times daily with meals. [facility] XELPROS 0.005 % dpem 09-29 00:00: 00 Yes INSTILL 1 DROP DAILY IN EACH EYE AT BEDTIME [facility] Tamsulosin HCl 0.4 MG Tamsulosin HCl 0.4 MG No 1{capsu le} QD Tamsulosin HCl 0.4 MG Levothyroxi ne Sodium 88 MCG Levothyroxi ne Sodium 88 MCG No QD Levothyrox ine Sodium 88 MCG Vital Signs Vital Name Observation Time Observation Value Comments S ource Systolic blood pressure 2023-03-20 19:57:00 146 mm[Hg] [facility] Diastolic blood pressure 2023-03-20 19:57:00 64 mm[Hg] [facility] Heart rate 2023-03-20 19:52:00 84 /min [facility] Body temperature 2023-03-20 19:52:00 36.22 Dottie [facility] Respiratory rate 2023-03-20 19:52:00 18 /min [facility] Body height 2023-03-20 19:52:00 170.2 cm [facility] Body weight 2023-03-20 19:52:00 53.706 kg [facility] BMI 2023-03-20 19:52:00 18.54 kg/m2 [facility] Oxygen saturation in Arterial blood by Pulse oximetry 2023-03-20 19:52:00 97 /min [facility] Systolic blood pressure 2022-09-03 19:31:00 153 mm[Hg] [facility] Diastolic blood pressure 2022-09-03 19:31:00 84 mm[Hg] [facility] Heart rate 2022-09-03 19:29:00 88 /min [facility] 2022-09-03 19:29:00 36.94 Dottie [facility] Respiratory rate 2022-09-03 19:29:00 18 /min [facility] Body weight 2022-09-03 19:29:00 53.071 kg [facility] BMI 2022-09-03 19:29:00 18.32 kg/m2 [facility] Oxygen saturation in Arterial blood by Pulse oximetry 2022-09-03 19:29:00 95 /min [facility] Systolic blood pressure 2022-08-06 19:33:00 141 mm[Hg] [facility] Diastolic blood pressure 2022-08-06 19:33:00 62 mm[Hg] [facility] Heart rate 2022-08-06 19:33:00 74 /min [facility] 2022-08-06 19:33:00 18 /min [facility] Body height 2022-08-06 19:33:00 170.2 cm [facility] Body weight 2022-08-06 19:33:00 53.524 kg [facility] BMI 2022-08-06 19:33:00 18.48 kg/m2 [facility] Oxygen saturation in Arterial blood by Pulse oximetry 2022-08-06 19:33:00 97 /min [facility] Systolic blood pressure 2022-04-07 19:59:00 139 mm[Hg] [facility] Diastolic blood pressure 2022-04-07 19:59:00 59 mm[Hg] [facility] Heart rate 2022-04-07 19:58:00 90 /min Unive [facility] Body temperature 2022-04-07 19:58:00 36.44 Dottie [facility] Respiratory rate 2022-04-07 19:58:00 18 /min [facility] Body height 2022-04-07 19:58:00 170.2 cm [facility] weight 2022-04-07 19:58:00 57.516 kg [facility] BMI 2022-04-07 19:58:00 19.86 kg/m2 [facility] Oxygen saturation in Arterial blood by Pulse oximetry 2022-04-07 19:58:00 99 /min [facility] Systolic blood pressure 2022-01-06 20:43:00 165 mm[Hg] [facility] Diastolic blood pressure 2022-01-06 20:43:00 76 mm[Hg] [facility] Heart rate 2022-01-06 20:43:00 83 /min Unive [facility] Body temperature 2022-01-06 20:42:00 36.5 Dottie [facility] Respiratory rate 2022-01-06 20:42:00 16 /min [facility] Body height 2022-01-06 20:42:00 170.2 cm [facility] Body weight 2022-01-06 20:42:00 57.607 kg [facility] BMI 2022-01-06 20:42:00 19.89 kg/m2 [facility] Oxygen saturation in Arterial blood by Pulse oximetry 2022-01-06 20:42:00 100 /min [facility] Systolic blood pressure 2021-11-25 19:27:00 181 mm[Hg] [facility] Diastolic blood pressure 2021-11-25 19:27:00 76 mm[Hg] [facility] Heart rate 2021-11-25 19:26:00 82 /min Unive [facility] Body temperature 2021-11-25 19:26:00 36.44 Dottie [facility] Respiratory rate 2021-11-25 19:26:00 18 /min [facility] Body height 2021-11-25 19:26:00 170.2 cm [facility] Body weight 2021-11-25 19:26:00 55.792 kg [facility] BMI 2021-11-25 19:26:00 19.26 kg/m2 [facility] Oxygen saturation in Arterial blood by Pulse oximetry 2021-11-25 19:26:00 99 /min [facility] Body height 2021-10-30 18:27:00 170.2 cm [facility] Body weight 2021-10-30 18:27:00 53.252 kg [facility] BMI 2021-10-30 18:27:00 18.39 kg/m2 [facility] Body weight 2021-10-18 19:32:00 54.704 kg [facility] BMI 2021-10-18 19:32:00 18.89 kg/m2 [facility] Body temperature 2021-09-18 19:04:00 36.56 Dottie [facility] Respiratory rate 2021-09-18 19:04:00 18 /min [facility] Body height 2021-09-18 19:04:00 170.2 cm [facility] Body weight 2021-09-18 19:04:00 57.425 kg [facility] BMI 2021-09-18 19:04:00 19.83 kg/m2 [facility] Oxygen saturation in Arterial blood by Pulse oximetry 2021-09-18 19:04:00 97 /min [facility] Systolic blood pressure 2021-09-18 19:04:00 129 mm[Hg] [facility] Diastolic blood pressure 2021-09-18 19:04:00 76 mm[Hg] [facility] Heart rate 2021-09-18 19:04:00 90 /min [facility] Procedures Procedure Date / Time Performed Performing Clinician Source REFERRAL- REQUEST/RESPONSE 2023-03-20 06:01:00 D octor Unassigned, [place] [facility] EXTERNAL PROVIDER RECORDS 2023-02-06 06:01:00 Do ctor Unassigned, [place] [facility] AUTHORIZATION FOR RELEASE OF PHI 2023-01-20 06:01:00 Doctor Unassigned, [place] [facility] DME/SUPPLY JUSTIFICATION 2022-12-26 06:01:00 Doc tor Unassigned, [place] [facility] DME/SUPPLY JUSTIFICATION 2022-11-04 05:01:00 Doc tor Unassigned, [place] [facility] EXTERNAL PROVIDER RECORDS 2022-09-09 05:01:00 Do ctor Unassigned, [place] [facility] US RETROPERITONEAL COMPLETE 2022-08-08 17:39:41 Red Daugherty [facility] PATIENT FINANCIAL POLICY 2022-08-08 16:19:58 Doctor Unassigned, [place] [facility] CONSENT/REFUSAL FOR DIAGNOSIS AND TREATMENT 2022-08-08 16:19:28 Doctor Unassigned, [place] [facility] ASSIGNMENT OF BENEFITS 2022-08-08 16:19:08 Docto r Unassigned, [place] [facility] AUTHORIZATION FOR RELEASE OF PHI 2022-08-05 05:01:00 Doctor Unassigned, [place] [facility] SCANNED LAB RESULTS 2022-08-01 05:01:00 Doctor Finn randolph, [place] [facility] POCT URINALYSIS AUTO 2022-01-06 20:48:00 Court Quarles [facility] POCT URINALYSIS AUTO 2021-11-25 19:24:00 Stalin Daugherty [facility] DISCLOSURE AND CONSENT, MEDICAL AND SURGICAL PROCEDURES 2021-11-25 05:01:00 Doctor Unassigned, [place] [facility] POCT URINALYSIS AUTO 2021-09-18 19:18:00 Court Qu[facility] Encounters Start Date/Time End Date/Time Encounter Type Admission Type Attending [facility] Care Facility Care Department Encounter ID Source 2023-07-01 14:30[facility]01 [id number] 2023-06-18 09:44:[address] [facility] [id number] [facility] 2021-03-13 11:29:37 [facility] [id number] [facility] 2020-12-15 07:25:47 Outpatient RED DAUGHERTY [facility] [id number] [facility] 2020-12-14 22:47:04 Inpatient TUNDE JEFFERSON [facility] [id number] [facility] 2020-12-14 22:46:02 Emergency [facility] [id number] [facility] 2023-09-25 14:15:00 2023-09-25 14:15:00 Outpatient GLENYS SOTO [facility] [id number] [facility] 2023-07-14 00:00:00 2023-07-14 00:00:00 (TEL) [facility] [id number] [facility] 2023-06-18 00:00:00 2023-06-18 [facility]00[id number] 2023-03-20 13:45:00 2023-03-20 14:16:26 Outpatient ARIA SOTOTNEY [facility] [id number] [facility] 2023-03-20 13:45:00 2023-03-20 14:16:26 Office Visit Glenys Quarles [facility] 1..840.114 350.1.13.10 4.2.7.2.686 [id number] [facility] 2023-03-20 00:00:00 2023-03-20 00:00:00 Orders Only Doctor Unassigned, [place] [facility] ..840.114 350.1.13.10 4.2.7.2.686 [id number] [facility] 2023-03-11 09:15:00 2023-03-11 09:15:00 Outpatient GLENYS SOTO [facility] [id number] [facility] 2023-03-09 13:45:00 2023-03-09 13:45:00 [facility] [id number] [facility] 2023-02-06 00:00:00 2023-02-06 00:00:00 Orders Only Doctor Unassigned, [place] [facility] 1.2.840.114 350.1.13.10 4.2.7.2.686 [id number] [facility] 2023-01-22 00:00:00 2023-01-22 00:00:00 Telephone Aria Quarlestney [facility] 1.2.840.114 350.1.13.10 4.2.7.2.686 [id number] [facility] 2023-01-21 00:00:00 2023-01-21 00:00:00 [facility] 1.2.840.114 350.1.13.10 4.2.7.2.686 [id number] [facility] 2023-01-20 00:00:00 2023-01-20 00:00:00 Orders Only Doctor Unassigned, [place] [facility] 1.2.840.114 350.1.13.10 4.2.7.2.686 [id number] [facility] 2023-01-15 00:00:00 2023-01-15 00:00:00 Telephone Glenys Quarles [facility] 1.2.840.114 350.1.13.10 4.2.7.2.686 [id number] [facility] 2022-12-29 00:00:00 2022-12-29 00:00:00 Telephone Red Daugherty [facility] 1.2.840.114 350.1.13.10 4.2.7.2.686 [id number] [facility] 2022-12-26 00:00:00 2022-12-26 00:00:00 Orders Only Doctor Unassigned, [place] [facility] 1.2.840.114 350.1.13.10 4.2.7.2.686 [id number] [facility] 2022-11-05 00:00:00 2022-11-05 00:00:00 Telephone Dat [facility] 1.2.840.114 350.1.13.10 4.2.7.2.686 [id number] [facility] 2022-11-04 00:00:00 2022-11-04 00:00:00 Orders Only Doctor Unassigned, [place] [facility] 1.2.840.114 350.1.13.10 4.2.7.2.686 [id number] [facility] 2022-09-09 00:00:00 2022-09-09 00:00:00 Orders Only Doctor Unassigned, [place] [facility] 1.2.840.114 350.1.13.10 4.2.7.2.686 [id number] [facility] 2022-09-03 14:15:00 2022-09-03 15:29:47 Outpatient R [facility] [id number] [facility] 2022-09-03 14:15:00 2022-09-03 15:29:47 Office Visit [facility] 1.2.840.114 350.1.13.10 4.2.7.2.686 [id number] [facility] 2022-08-08 11:20:33 2022-08-08 23:59:00 Outpatient R DAT [facility] [id number] [facility] 2022-08-08 11:20:33 2022-08-08 23:59:00 [facility] 1.2.840.114 350.1.13.10 4.2.7.2.686 [id number] [facility] 2022-08-07 00:00:00 2022-08-07 00:00:00 [facility] 1.2.840.114 350.1.13.10 4.2.7.2.686 [id number] [facility] 2022-08-06 14:45:00 2022-08-06 15:43:13 Outpatient R ROBINA [facility] [id number] [facility] 2022-08-06 14:45:00 2022-08-06 15:43:13 [facility] 1.2.840.114 350.1.13.10 4.2.7.2.686 [id number] [facility] 2022-08-06 14:00:00 2022-08-06 14:15:00 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, 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 Red Daugherty [facility] 1.2.840.114 350.1.13.10 4.2.7.2.686 [id number] [facility] 2022-08-05 00:00:00 2022-08-05 00:00:00 Orders Only Doctor Unassigned, [place] [facility] 1.2840.114 350.1.13.10 4.2.7.2.686 [id number] [facility] 2022-08-01 00:00:00 2022-08-01 00:00:00 Orders Only Doctor Unassigned, [place] [facility] 1.2840.114 350.1.13.10 4.2.7.2.686 [id number] [facility] 2022-08-01 00:00:00 2022-08-01 00:00:00 Telephone Red Daugherty [facility] 1..840.114 350.1.13.10 4.2.7.2.686 [id number] [facility] 2022-04-07 13:45:00 2022-04-07 14:57:34 [facility] [id number] [facility] 2022-04-07 13:45:00 2022-04-07 14:57:34 [facility] 1..840.114 350.1.13.10 4.2.7.2.686 [id number] [facility] 2022-01-06 14:15:00 2022-01-06 15:49:34 Outpatient R ARIA QUARLESTNEY [facility] [id number] [facility] 2022-01-06 14:15:00 2022-01-06 15:49:34 [facility] 1..840.114 350.1.13.10 4.2.7.2.686 [id number] [facility] 2021-11-25 14:00:00 2021-11-25 15:08:36 Outpatient R RED DAUGHERTY [facility] [id number] [facility] 2021-11-25 14:00:00 2021-11-25 15:08:36 Office Visit Red Daugherty , Adc Surg Spec Procedure [facility] 1..840.114 350.1.13.10 4.2.7.2.686 [id number] [facility] 2021-11-25 00:00:00 2021-11-25 00:00:00 Orders Only Doctor Unassigned, [place] [facility] 1.2.840.114 350.1.13.10 4.2.7.2.686 [id number] [facility] 2021-11-21 14:00:00 2021-11-21 15:35:44 Outpatient R DAT [facility] [id number] [facility] 2021-11-21 14:00:00 2021-11-21 15:35:44 Nurse Visit Nurse, [facility] Surgery [facility] 1.2.840.114 350.1.13.10 4.2.7.2.686 [id number] [facility] 2021-11-20 00:00:00 2021-11-20 00:00:00 Telephone Dat [facility] 1.2.840.114 350.1.13.10 4.2.7.2.686 [id number] [facility] 2021-11-18 00:00:00 2021-11-18 00:00:00 Telephone [facility] 1.2.840.114 350.1.13.10 4.2.7.2.686 [id number] [facility] 2021-11-18 00:00:00 2021-11-18 00:00:00 Case Management Glenys Quarles [facility] 1.2.840.114 350.1.13.10 4.2.7.2.686 [id number] [facility] 2021-11-13 13:00:00 2021-11-13 13:30:00 Nurse Visit Nurse, [facility] Surgery [facility] 1.2.840.114 350.1.13.10 4.2.7.2.686 [id number] [facility] 2021-11-13 13:00:00 2021-11-13 13:00:00 Outpatient R DAT [facility] [id number] [facility] 2021-11-08 00:00:00 2021-11-08 00:00:00 Telephone Dat [facility] 1.2.840.114 350.1.13.10 4.2.7.2.686 [id number] [facility] 2021-10-30 13:15:00 2021-10-30 13:50:02 Nurse Visit [facility], [facility] 1.2.840.114 350.1.13.10 4.2.7.2.686 [id number] [facility] 2021-10-30 13:15:00 2021-10-30 13:15:00 Outpatient R DAT [facility] [id number] [facility] 2021-10-22 00:00:00 2021-10-22 00:00:00 Telephone QuarlesGlenys [facility] 1.2.840.114 350.1.13.10 4.2.7.2.686 [id number] [facility] 2021-10-18 14:15:00 2021-10-18 14:24:57 [id number] 2021-10-18 14:15:00 2021-10-18 14:24:57 Nurse Visit Nurse, [facility] 1.2.840.114 350.1.13.10 4.2.7.2.686 [id number] [facility] 2021-09-18 13:30:00 2021-09-18 14:32:42 Outpatient R ARIA [facility] [facility] [id number] [facility] 2021-09-18 13:30:00 2021-09-18 14:32:42 [facility] 1.2.840.114 350.1.13.10 4.2.7.2.686 [id number] [facility] 2021-09-11 14:00:00 2021-09-11 14:00:00 Outpatient R [facility] [id number] [facility] 2021-05-27 15:30:00 2021-05-27 16:16:00 Outpatient R DAT [facility] [id number] [facility] 2021-05-27 15:30:00 2021-05-27 16:16:00 Office Visit Red Daugherty, Adc Surg Spec Procedure [facility] 1.2.840.114 350.1.13.10 4.2.7.2.686 [id number] [facility] 2021-05-17 14:00:00 2021-05-17 14:23:19 [id number] 2021-05-17 14:00:00 2021-05-17 14:23:19 Nurse Visit Nurse, [facility] Surgery Dat [facility] 1.2.840.114 350.1.13.10 4.2.7.2.686 [id number] [facility] 2021-04-15 09:00:00 2021-04-15 10:22:20 Outpatient R RED DAUGHERTY [facility] [id number] [facility] 2021-04-15 09:00:00 2021-04-15 10:22:20 [facility] 1..840.114 350.1.13.10 4.2.7.2.686 [id number] [facility] 2021-04-15 09:00:00 2021-04-15 10:22:20 Outpatient R RED DAUGHERTY [facility] [id number] [facility] 2021-04-15 09:00:00 2021-04-15 10:22:20 [facility] [id number] [facility] 2021-04-15 09:00:00 2021-04-15 09:30:00 Office Visit Red Daugherty, Adc Surg Spec [facility] 1..840.114 350.1.13.10 4.2.7.2.686 [id number] [facility] 2021-04-15 09:00:00 2021-04-15 09:00:00 Outpatient R [facility] [id number] [facility] 2021-04-15 09:00:00 2021-04-15 09:00:00 [facility] [id number] [facility] 2021-04-15 09:00:00 2021-04-15 09:00:00 [facility] [id number] [facility] 2021-04-15 09:00:00 2021-04-15 09:00:00 [facility] [id number] [facility] 2021-04-15 09:00:00 2021-04-15 09:00:00 Outpatient R [facility] [id number] [facility] 2021-04-15 00:00:00 2021-04-15 00:00:00 Orders Only Doctor Unassigned, [place] [facility] 1..840.114 350.1.13.10 4.2.7.2.686 [id number] [facility] 2021-04-03 09:30:00 2021-04-03 10:05:48 Outpatient R TERRI SHETH [facility] [id number] [facility] 2021-04-03 09:30:00 2021-04-03 09:45:00 Nurse Visit Nurse, [facility] Surgery Terri Alfredo [facility] 1..840.114 350.1.13.10 4.2.7.2.686 [id number] [facility] 2021-04-03 09:30:00 2021-04-03 09:30:00 Outpatient R TERRI SHETH [facility] [id number] [facility] 2021-03-28 10:00:00 2021-03-28 10:00:00 [facility] [id number] [facility] 2021-03-28 10:00:00 2021-03-28 10:00:00 Outpatient R DAT [facility] [id number] [facility] 2021-03-27 00:00:00 2021-03-27 00:00:00 Telephone Dat [facility] 1.2.840.114 350.1.13.10 4.2.7.2.686 [id number] [facility] 2021-03-20 14:15:00 2021-03-20 14:16:10 Outpatient R TERRI SHETH [facility] [id number] [facility] 2021-03-20 14:15:00 2021-03-20 14:16:10 Nurse Visit Nurse, [facility] Surgery Adore Alfredoela Tom [facility] 1.2.840.114 350.1.13.10 4.2.7.2.686 [id number] [facility] 2021-03-20 14:15:00 2021-03-20 14:16:10 Outpatient R TERRI SHETH [facility] [id number] [facility] 2021-02-21 15:45:00 2021-02-21 17:15:54 Outpatient R RED DAUGHERTY [facility] [id number] [facility] 2021-02-21 15:45:00 2021-02-21 17:15:54 Office Visit Red Daugherty, Adc Surg Spec [facility] 1.2.840.114 350.1.13.10 4.2.7.2.686 [id number] [facility] 2021-02-21 15:45:00 2021-02-21 17:15:54 Outpatient R RED DAUGHERTY [facility] [id number] [facility] 2021-02-21 15:45:00 2021-02-21 17:15:54 Outpatient R RED DAUGHERTY [facility] [id number] [facility] 2021-02-21 15:45:00 2021-02-21 17:15:54 Outpatient R RED DAUGHERTY [facility] [id number] [facility] 2021-02-11 13:30:00 2021-02-11 14:35:32 [facility] [id number] [facility] 2021-02-11 13:30:00 2021-02-11 14:35:32 Outpatient R RED DAUGHERTY [facility] [id number] [facility] 2021-02-11 13:30:00 2021-02-11 14:35:32 [facility] [id number] [facility] 2021-02-11 13:30:00 2021-02-11 13:45:00 Nurse Visit Nurse, Adc Surgery Gu [facility] 1.2.840.114 350.1.13.10 4.2.7.2.686 [id number] [facility] 2021-02-11 13:30:00 2021-02-11 13:30:00 Outpatient R LEXISRED Keller [facility] [id number] [facility] 2021-02-11 00:00:00 2021-02-11 00:00:00 Orders Only Doctor Unassigned, [place] [facility] 1.2.840.114 350.1.13.10 4.2.7.2.686 [id number] [facility] 2021-01-31 00:00:00 2021-01-31 00:00:00 Telephone DatRed [facility] NAL BUILDING 1.2.840.114 350.1.13.10 4.2.7.2.686 [id number] [facility] 2021-01-28 14:06:17 2021-01-28 15:43:02 Office Visit Terri Sheth [facility] NAL BUILD[facility] 1.2.840.114 350.1.13.10 4.2.7.2.686 [id number] [facility] 2021-01-28 14:00:00 2021-01-28 15:43:02 Outpatient R TERRI SHETH [facility] [id number] [facility] 2021-01-28 14:00:00 2021-01-28 15:43:02 Outpatient R TERRI SHETH [facility] [id number] [facility] 2021-01-28 14:00:00 2021-01-28 15:43:02 Outpatient R TERRI SHETH [facility] [id number] [facility] 2021-01-28 14:00:00 2021-01-28 15:43:02 Outpatient R TERRI SHETH [facility] [id number] [facility] 2020-08-30 00:00:00 2020-08-30 00:00:00 Orders Only Doctor Unassigned, [place] [facility] 1.2.840.114 350.1.13.10 4.2.7.2.686 [id number] [facility] 2020-07-30 15:30:00 2020-07-30 16:12:10 Outpatient R TERRI SHETH [facility] [id number] [facility] 2020-07-30 15:30:00 2020-07-30 16:12:10 Outpatient R DOMENICTERRI [facility] [id number] [facility] 2020-07-30 15:29:48 2020-07-30 16:12:10 Office Visit Domenic Terri Santos [facility] 1.2.840.114 350.1.13.10 4.2.7.2.686 [id number] [facility] 2020-07-30 15:30:00 2020-07-30 15:30:00 Outpatient R DOMENICTERRI [facility] [id number] [facility] 2020-06-20 13:30:00 2020-06-20 14:53:03 Outpatient R DOMENIC TERRI [facility] [id number] [facility] 2020-06-20 13:30:00 2020-06-20 14:53:03 Outpatient R DOMENIC TERRI [facility] [id number] [facility] 2020-06-20 13:27:48 2020-06-20 14:53:03 Office Visit Domenic Terri Santos [facility] 1.2.840.114 350.1.13.10 4.2.7.2.686 [id number] [facility] 2020-06-20 13:30:00 2020-06-20 13:30:00 Outpatient R DOMENIC TERRI [facility] [id number] [facility] 2020-06-20 00:00:00 2020-06-20 00:00:00 Orders Only Doctor Unassigned, [place] [facility] 1.2.840.114 350.1.13.10 4.2.7.2.686 [id number] [facility] 2020-05-07 14:15:00 2020-05-07 15:21:54 [facility] [id number] [facility] 2020-05-07 14:15:00 2020-05-07 15:21:54 Outpatient R DAT [facility] [id number] [facility] 2020-05-07 14:11:00 2020-05-07 15:21:54 Office Visit Dat [facility] Building 1.2.840.114 350.1.13.10 4.2.7.2.686 [id number] [facility] 2020-05-07 14:15:00 2020-05-07 14:15:00 [facility] [id number] [facility] 2020-04-24 14:00:00 2020-04-24 14:07:17 Outpatient R DAT [facility] [id number] [facility] 2020-04-24 14:00:00 2020-04-24 14:07:17 Outpatient R DAT [facility] [id number] [facility] 2020-04-24 14:00:00 2020-04-24 14:07:17 Outpatient R DAT [facility] [id number] [facility] 2020-04-24 14:00:00 2020-04-24 14:00:00 Outpatient R [facility] [id number] [facility] 2020-04-23 00:00:00 2020-04-23 00:00:00 Telephone Dat [facility] Building 1.2.840.114 350.1.13.10 4.2.7.2.686 [id number] [facility] 2020-04-06 14:00:00 2020-04-06 14:00:00 Outpatient R [facility] [id number] [facility] 2020-04-06 14:00:00 2020-04-06 10:04:45 Outpatient R DAT [facility] [id number] [facility] 2020-04-06 14:00:00 2020-04-06 10:04:45 Outpatient R DAT [facility] [id number] [facility] 2020-04-06 09:54:12 2020-04-06 10:04:45 Nurse Visit Nurse, [facility] 1.2.840.114 350.1.13.10 4.2.7.2.686 [id number] [facility] 2020-03-15 11:00:00 2020-03-15 12:14:34 Outpatient R DAT [facility] [id number] [facility] 2020-03-15 11:00:00 2020-03-15 12:14:34 Outpatient R DAT [facility] [id number] [facility] 2020-03-15 10:54:44 2020-03-15 12:14:34 Nurse Visit Nurse, [facility] 1.2.840.114 350.1.13.10 4.2.7.2.686 [id number] [facility] 2020-03-15 11:00:00 2020-03-15 11:00:00 Outpatient R [facility] [id number] [facility] 2020-03-15 00:00:00 2020-03-15 00:00:00 Orders Only Doctor Unassigned, [place] [facility] 1.2.840.114 350.1.13.10 4.2.7.2.686 [id number] [facility] 2020-03-12 14:00:00 2020-03-12 14:34:26 [facility] [id number] [facility] 2020-03-12 14:00:00 2020-03-12 14:34:26 Outpatient R DAT [facility] [id number] [facility] 2020-03-12 13:35:40 2020-03-12 14:34:26 Nurse Visit Nurse, [facility] 1.2.840.114 350.1.13.10 4.2.7.2.686 [id number] [facility] 2020-03-12 14:00:00 2020-03-12 14:00:00 [facility] [id number] [facility] 2020-03-09 13:03:03 2020-03-09 13:28:10 Nurse Visit [facility], [facility] 1.2.840.114 350.1.13.10 4.2.7.2.686 [id number] [facility] 2020-03-09 13:00:00 2020-03-09 13:28:10 [facility] [id number] [facility] 2020-03-09 13:00:00 2020-03-09 13:28:10 [facility] [id number] [facility] 2020-03-09 13:00:00 2020-03-09 13:00:00 Outpatient R [facility] [id number] [facility] 2020-02-14 00:00:00 2020-02-14 00:00:00 Telephone Dat [facility] Building 1.2.840.114 350.1.13.10 4.2.7.2.686 [id number] [facility] 2020-02-07 00:00:00 2020-02-07 00:00:00 Telephone Dat [facility] Building 1.2.840.114 350.1.13.10 4.2.7.2.686 [id number] [facility] 2020-02-06 09:09:56 2020-02-06 11:03:21 Office Visit Dat [facility] 1.2.840.114 350.1.13.10 4.2.7.2.686 [id number] [facility] 2020-02-06 09:15:00 2020-02-06 09:15:00 Outpatient R DAT [facility] [id number] [facility] 2020-01-31 10:48:00 2020-02-01 13:51:00 Hospital Encounter Dat [facility] 1.2.840.114 350.1.13.10 4.2.7.2.686 [id number] [facility] 2020-01-30 14:56:15 2020-01-30 15:11:15 Laboratory Only Only, [facility] 1.2.840.114 350.1.13.10 4.2.7.2.686 [id number] [facility] 2020-01-30 14:45:00 2020-01-30 14:45:00 Outpatient R [facility] [id number] [facility] 2020-01-30 00:00:00 2020-01-30 00:00:00 Orders Only Doctor Unassigned, [place] [facility] 1.2840.114 350.1.13.10 4.2.7.2.686 [id number] [facility] 2020-01-18 00:00:00 2020-01-18 00:00:00 [facility] 1.20.114 350.1.13.10 4.2.7.2.686 [id number] [facility] 2020-01-09 11:19:20 2020-01-09 13:02:24 Telemedici ne Visit Dat [facility] Building 1.2.114 350.1.13.10 4.2.7.2.686 [id number] [facility] 2020-01-09 11:30:00 2020-01-09 11:30:00 Outpatient R RED DAUGHERTY [facility] [id number] [facility] 2019-12-31 02:52:00 2019-12-31 02:52:00 Outpatient Georgia-Constance _A_AH VF VFP [id number] [facility] 2019-12-27 00:00:00 2019-12-27 00:00:00 Orders Only Doctor Unassigned, [place] [facility] 1.2.114 350.1.13.10 4.2.7.2.686 [id number] [facility] 2019-12-19 13:24:02 2019-12-19 16:03:35 Office Visit Red Daugherty Rm, Adc Surg Spec Procedure [facility] Building 1.2.114 350.1.13.10 4.2.7.2.686 [id number] [facility] 2019-12-19 13:30:00 2019-12-19 13:30:00 Outpatient R RED DAUGHERTY [facility] [id number] [facility] 2019-12-15 13:19:31 2019-12-15 15:37:37 Office Visit Marcin Escobedo, Ronald Uro Procedure [facility] 1.2.840.114 350.1.13.10 4.2.7.2.686 [id number] [facility] 2019-12-15 14:00:00 2019-12-15 14:00:00 Out[facility] [id number] [facility] 2019-12-12 00:00:00 2019-12-12 00:00:00 Telephone Gregg [facility] 1.2.840.114 350.1.13.10 4.2.7.2.686 [id number] [facility] 2019-12-08 14:51:56 2019-12-09 09:27:14 Office Visit Marcin Escobedo, Ronald Uro Procedure [facility] 1.2.840.114 350.1.13.10 4.2.7.2.686 [id number] [facility] 2019-12-08 14:00:00 2019-12-08 14:00:00 Outpatient MARCIN YU [facility] [id number] [facility] 2019-12-05 00:00:00 2019-12-05 00:00:00 Transition of Care [place] 1.2.840.114 350.1.13.10 4.2.7.2.686 [id number] [facility] 2019-11-29 17:47:00 2019-12-02 16:54:00 Hospital Encounter ManuelfranciscoTunde [facility] 1.2.840.114 350.1.13.10 4.2.7.2.686 [id number] [facility] 2019-11-29 00:00:00 2019-11-29 00:00:00 Telephone Terri Sheth [facility] 1.2.840.114 350.1.13.10 4.2.7.2.686 [id number] [facility] 2019-11-28 13:57:45 2019-11-28 23:59:00 Hospital Encounter Terri Sheth [facility] 1.2.840.114 350.1.13.10 4.2.7.2.686 [id number] [facility] 2019-11-28 00:00:00 2019-11-28 00:00:00 Outpatient R TERRI SHETH [facility] [id number] [facility] 2019-11-21 10:10:30 2019-11-21 12:03:21 [facility] 1.2.840.114 350.1.13.10 4.2.7.2.686 [id number] [facility] 2019-11-21 11:25:58 2019-11-21 11:40:58 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, Adc Lab Dat [facility] 1.2.840.114 350.1.13.10 4.2.7.2.686 [id number] [facility] 2019-11-21 10:00:00 2019-11-21 10:00:00 Outpatient R DAT [facility] [id number] [facility] 2019-11-21 00:00:00 2019-11-21 00:00:00 Orders Only Doctor Unassigned, [place] [facility] 1.2.840.114 350.1.13.10 4.2.7.2.686 [id number] [facility] 2019-10-14 11:41:00 2019-10-14 11:41:00 [facility] [id number] [facility] 2019-09-13 11:00:00 2019-09-13 11:00:00 [facility] [id number] [facility] 2019-09-02 09:43:00 2019-09-02 09:43:00 [facility] [id number] [facility] 2019-09-02 09:00:00 2019-09-02 09:00:00 [facility] [id number] [facility] 2019-08-31 08:30:00 2019-08-31 08:30:00 [facility] [id number] [facility] 2019-08-25 14:00:00 2019-08-25 14:00:00 [facility] [id number] [facility] 2019-08-18 15:00:00 2019-08-18 15:00:00 [facility] [id number] [facility] 2019-04-06 07:26:00 2019-04-06 07:26:00 Outpatient [place]-Mbayo _A_AH VFP VFP [id number] [facility] Practic e Results Test Description Test Time Test Comments Results Result Co mments [facility] [id number] 20:49:00 * Test Item Value Reference Range [...] clear Lab Interpretation (test cod e = [id number]) Normal [facility] URINALYSIS, [id number] 19:25:00 * Test Item Value Reference Range [...] U APPEAR (test code = 3267) [facility] [id number] 19:25:00 * Test Item Value Reference Range [...] U APPEAR (test code = 3267) [facility] [id number] 19:19:00 * Test Item Value Reference Range [...] U APPEAR (test code = 3267) [facility]
[2023-08-09 15:46] LABS: Specific Gravity 1.006 (1.005-1.030); Sqamous Epithelial None Seen /HPF (None Seen); Urine Bacteria None Seen /HPF (<20); Urine Bilirubin NEGATIVE (Negative); Urine Blood 3+ (OVER) (Negative); Urine Clarity Extremely Turbid (Clear); Urine Color Light-Brown (Yellow); Urine Crystals Unidentified Few /HPF (None Seen); Urine Culture Reflex Order NOT NEEDED; Urine Glucose NEGATIVE (Negative); Urine Ketones NEGATIVE (Negative); Urine Micro Reflex YN NO BILL MICROSCOPIC; Urine Nitrite NEGATIVE (Negative); Urine Protein 1+ (Negative); Urine RBC >50 /HPF (None Seen); Urine Urobilinogen Normal (Normal); Urine WBC None Seen /HPF (<5)
[2023-08-09 16:16] LABS: ALT/SGPT 15 U/L (16-61); Albumin/Globulin Ratio 0.7 (1.1-1.8); Alkaline Phosphatase 83 U/L (45-117); Anion Gap 14.2 mEq/L (5.0-15.0); BUN Blood Urea Nitrogen 154 mg/dL (7-18); Bicarbonate 23 mEq/L (21-32); Bilirubin Total 0.3 mg/dL (0.2-1.0); Globulin 4.6 g/dL (2.3-3.5); Glomerular Filtration Rate 11 ml/min (=/>90); Glucose Level 180 mg/dL (74-106); Potassium 3.2 mEq/L (3.5-5.1); Protein, Total 7.6 g/dL (6.4-8.2); Sodium Level 134 mEq/L (136-145)
[2023-08-09 16:18] LABS: AST/SGOT < 10 U/L (15-37)
--- NOTE | 2023-08-09 16:25 | ER ---
Nurse's Notes [facility] Name: Enzo Person Age: 83 yrs Sex: Male : 1940 Arrival Date: 08/09/2023 Time: 14:42 Bed 17 Private MD: Diagnosis: Gross hematuria Presentation: 08/08 14:43 Chief complaint: EMS states: "toned out for blood in catheter. Pt was seen here this mb9 morning for fall injury and blood in catheter. No improvements since being discharged.". Coronavirus screen: Vaccine status: Patient reports receiving the 2nd dose of the covid vaccine. Ebola Screen: No symptoms or risks identified at this time. Initial Sepsis Screen: Does the patient meet any 2 criteria? No. Patient's initial sepsis screen is negative. Does the patient have a suspected source of infection? No. Patient's initial sepsis screen is negative. Risk Assessment: Do you want to hurt yourself or someone else? Patient reports no desire to harm self or others. Onset of symptoms was August 09, 2023. 14:43 Method Of Arrival: EMS: [facility] 9 14:43 Acuity: HUMERA 3 mb9 Triage Assessment: 14:49 General: Appears in no apparent distress. Behavior is calm, cooperative. Pain: Denies mb9 pain. EENT: No signs and/or symptoms were reported regarding the EENT system. Neuro: Level of Consciousness is awake, obeys commands, Oriented to person. Cardiovascular: Patient's skin is warm and dry. Respiratory: Airway is patent Respiratory effort is even, unlabored, Respiratory pattern is regular, symmetrical. GI: No signs and/or symptoms were reported involving the gastrointestinal system. : Navas in place Urine is blood tinged. Derm: Skin is pink, warm \\T\\ dry. Musculoskeletal: Range of motion: intact in all extremities. Historical: - Allergies: 14:44 PENICILLINS; mb9 - Home Meds: 14:44 levothyroxine 88 mcg oral capsule [Active]; tamsulosin 0.4 mg oral capsule [Active]; mb9 - PMHx: 14:44 Anemia; chronic back pain; Dementia; dysphasia; Hypothyroidism; BPH; chronic kidney mb9 disease; cognitive communication deficit; Anemia; - PSHx: 14:44 None; mb9 - Immunization history:: Adult Immunizations up to date. - Infectious Disease History:: Denies. - Social history:: Smoking status: Patient denies any tobacco usage or history of. - Family history:: not pertinent. Screenin:50 [facility] ED Fall Risk Assessment (Adult) History of falling in the last 3 months, mb9 including since admission Yes- single mechanical fall (1 pt) Confusion or Disorientation Yes (5 pts) Intoxicated or Sedated No (0 pts) Impaired Gait Yes (1 pt) Mobility Assist Device Used Yes (1 pt) Altered Elimination Yes (1 pt) Score/Fall Risk Level 3 or more points = High Risk Oriented to surroundings, Maintained a safe environment, Educated pt \\T\\ family on fall prevention, incl call for assistance when getting out of bed, Assessed \\T\\ reinforced patient's understanding of fall precautions, Provided non-skid footwear, Hourly rounding (assess needs \\T\\ fall precautionary measures) done. Abuse screen: Denies threats or abuse. Nutritional screening: No deficits noted. Tuberculosis screening: No symptoms or risk factors identified. Assessment: 14:50 Reassessment: see triage assessment. mb9 16:27 Reassessment: discharge pending ride home. mb9 16:48 Reassessment: navas not draining due to increased clots. ERP notified. VO to place [address] navas and irrigate. 17:00 Reassessment: Unable to place [address] navas. ERP notified. mb9 17:15 Reassessment: Charge nurse at bedside. mb9 19:00 Reassessment: Patient appears in no apparent distress at this time. No changes from mb9 previously documented assessment. Patient and/or family updated on plan of care and expected duration. Pain level reassessed. 19:00 Reassessment: pts daughter, Stephenie, at bedside speaking to Dr. Montesinos. mb9 21:07 Reassessment: report given to transferring nurse Nurys RN. mb9 21:07 Reassessment: Patient appears in no apparent distress at this time. No changes from mb9 previously documented assessment. Patient and/or family updated on plan of care and expected duration. Pain level reassessed. Vital Signs: 14:43 BP 97 / 61; Pulse 84; Resp 16; Temp 98.2; Pulse Ox 100% on R/A; Weight 47.63 kg; Height mb9 5 ft. 8 in. ; Pain 0/10; 18:38 BP 112 / 62; Pulse 74; Resp 18; Pulse Ox 100% ; mb9 20:12 BP 110 / 76; Pulse 85; Resp 15; Pulse Ox 100% on R/A; mb9 14:43 Body Mass Index 15.97 (47.63 kg, 172.72 cm) mb9 14:43 Pain Scale: Adult mb9 ED Course: 13:25 Coud inserted, using sterile technique, 16 Fr. Returned bloody urine. To gravity mb9 drainage. Urine specimen collected. Patient tolerated well. 13:45 Repositioned patient. Cleaned of incontinence. mb9 14:43 Patient arrived in ED. mb9 14:44 Ryan Montesinos MD is Attending Physician. rt 14:44 Triage completed. mb9 14:48 Arm band placed on. mb9 14:49 Gaviota Turner, LUL is Primary Nurse. mb9 14:50 Placed in gown. Bed in low position. Call light in reach. Side rails up X 1. Provided mb9 Education on: press call light if needing anything. Client placed on continuous cardiac and pulse oximetry monitoring. NIBP monitoring applied. Door closed. Noise minimized. Warm blanket given. Pillow given. 15:12 CMP Sent. mb9 15:12 Initial lab(s) drawn, by ar, sent to lab. Inserted saline lock: 22 gauge in right mb9 antecubital area, using aseptic technique. Blood collected. 15:12 Navas cath removed intact, balloon deflated. mb9 15:45 No provider procedures requiring assistance completed. mb9 16:24 Melvin Mcgraw MD is Referral Physician. rt 17:00 Repositioned patient. Cleaned of incontinence. mb9 19:06 Inserted saline lock: 22 gauge in right antecubital area, using aseptic technique. em1 Blood collected. 19:07 CBC with Diff Sent. em1 19:32 initiated contact with Marci \\Chaka\\ [facility]. kmf 20:10 Repositioned patient. Cleaned of incontinence. mb9 20:11 Coud inserted, using sterile technique, 22 Fr. Returned bloody urine. To gravity cm10 drainage. Patient tolerated well. 20:18 Thermoregulation: warm blanket given to patient. mb9 20:19 Patient transferred, IV remains in place. mb9 20:27 Attending Physician role handed off by Ryan Montesinos MD ec2 20:27 Marlon Schneider MD is Attending Physician. ec2 08/09 05:59 1932: initiated with kennedi coreas \\T\\ [facility] : pt was accepted \\T\\ 2025 by Chu Stephens. km f Pt will go to ER number for nurse to nurse report [phone]. [facility] to transfer pt. Administered Medications: No medications were administered Medication: 08/08 14:50 VIS not applicable for this client. mb9 Outcome: 16:24 Discharge ordered by . rt 20:17 ER care complete, transfer ordered by MD. rt 21:06 Transferred by ground EMS to [facility], [facility] [place], Transfer form completed. mb9 X-rays sent w/ patient. 21:06 Condition: stable 21:06 Instructed on the need for transfer, 22:02 Patient left the ED. vc1 Signatures: Esa Gutierrez em1 Jeanna Saenz RN RN vc1 Gaviota Turner, RN RN mb9 Ryan Montesinos MD MD rt Karol Gutierrez RN RN cm10 Marlon Schneider MD MD ec2 Maritza Raymond [facility]
--- NOTE | 2023-08-09 16:25 | EDPHYS ---
Physician Documentation [facility] Name: Enzo Person Age: 83 yrs Sex: Male : 1940 Arrival Date: 08/09/2023 Time: 14:42 Bed 17 Private MD: ED Physician Marlon Schneider HPI: 08/08 20:15 This 83 yrs old Male presents to ER via EMS with complaints of blood in catheter. rt 20:15 Patient presents to the ED with gross hematuria. Patient seen in the ED yesterday for a rt fall, to mild hematuria, patient had significant clot burden from the catheter today. Patient denies any complaints at this time, symptoms are moderate severity, no other aggravating or alleviating factors.. Historical: - Allergies: 14:44 PENICILLINS; mb9 - Home Meds: 14:44 levothyroxine 88 mcg oral capsule [Active]; tamsulosin 0.4 mg oral capsule [Active]; mb9 - PMHx: 14:44 Anemia; chronic back pain; Dementia; dysphasia; Hypothyroidism; BPH; chronic kidney mb9 disease; cognitive communication deficit; Anemia; - PSHx: 14:44 None; mb9 - Immunization history:: Adult Immunizations up to date. - Infectious Disease History:: Denies. - Social history:: Smoking status: Patient denies any tobacco usage or history of. - Family history:: not pertinent. ROS: 20:15 : Positive for hematuria, rt 20:15 Unable to obtain ROS due to baseline dementia, 20:28 Constitutional: as per hpi ec2 Exam: 20:15 Constitutional: This is a well developed, well nourished patient who is awake, alert, rt and in no acute distress. Head/Face: Normocephalic, atraumatic. Chest/axilla: Normal chest wall appearance and motion. Nontender with no deformity. No lesions are appreciated. Cardiovascular: Regular rate and rhythm with a normal S1 and S2. No gallops, murmurs, or rubs. Normal PMI, no JVD. No pulse deficits. Respiratory: Lungs have equal breath sounds bilaterally, clear to auscultation and percussion. No rales, rhonchi or wheezes noted. No increased work of breathing, no retractions or nasal flaring. Abdomen/GI: Soft, non-tender, with normal bowel sounds. No distension or tympany. No guarding or rebound. No evidence of tenderness throughout. Skin: Warm, dry with normal turgor. Normal color with no rashes, no lesions, and no evidence of cellulitis. 20:15 : Shell catheter in place with gross hematuria, Vital Signs: 14:43 BP 97 / 61; Pulse 84; Resp 16; Temp 98.2; Pulse Ox 100% on R/A; Weight 47.63 kg; Height mb9 5 ft. 8 in. ; Pain 0/10; 18:38 BP 112 / 62; Pulse 74; Resp 18; Pulse Ox 100% ; mb9 20:12 BP 110 / 76; Pulse 85; Resp 15; Pulse Ox 100% on R/A; mb9 14:43 Body Mass Index 15.97 (47.63 kg, 172.72 cm) mb9 14:43 Pain Scale: Adult mb9 MDM: 14:46 Patient medically screened. rt 20:15 Differential Diagnosis Prostatic trauma, gross materia. Data reviewed: vital signs, rt nurses notes, lab test result(s). Consideration of Admission/Observation Escalation of care including admission/observation considered. Patient requires transfer for urology evaluation. Management of patient was discussed with the following: Heating And Cooling Systems Engineer: Discussed with urologist at [facility], will evaluate patient in the ER.. I considered the following discharge prescriptions or medication management in the emergency department Medications were administered in the Emergency Department. See MAR. Care significantly affected by the following chronic conditions: bph. Counseling: I had a detailed discussion with the patient and/or guardian regarding the historical points, exam findings, and any diagnostic results supporting the discharge/admit diagnosis, lab results, the need to transfer to another facility. Response to treatment: There is no appreciated change of the patient's symptoms at this time. 20:27 ED course: Patient signed out to me by previous physician, in brief patient arrives ec2 today for evaluation of blood in the catheter. Plan is to go discussed with ER physician for ER to ER transfer. I discussed the case with the ER physician, Dr. Robison who agrees to assess the patient for transfer. Will continue to place coud catheter here in the emergency department. Family updated regarding plan of care.. 08/08 14:50 Order name: CMP; Complete Time: 16:19 rt 08/08 14:50 Order name: UAM; Complete Time: 16:07 rt 08/08 18:39 Order name: CBC with Diff; Complete Time: 19:21 hb 08/08 14:50 Order name: Shell-Coude; Complete Time: 15:33 rt 08/08 14:51 Order name: Bladder Irrigation; Complete Time: 15:33 rt 08/08 15:18 Order name: Labs - recollect needed: green top needed; Complete Time: 15:37 sp 08/08 20:15 Order name: Shell-Coude; Complete Time: 20:18 rt Administered Medications: No medications were administered Disposition Summary: 08/09/23 20:17 Transfer Ordered Notes: Transfer Location: [facility] rt Reason: Higher level of care rt Condition: Stable(08/09/23 20:17) rt Problem: new(08/09/23 20:17) rt Symptoms: are unchanged(08/09/23 20:17) rt Accepting Physician: (08/09/23 22:02) vc1 Diagnosis - Gross hematuria(08/09/23 20:17) rt Forms: - Medication Reconciliation Form rt - SBAR form rt Signatures: Dispatcher [employer] EDMS Margarita Payan Vanessa RN RN vc1 Gaviota Turner RN RN mb9 Ryan Montesinos MD MD rt Marlon Schneider MD MD ec2 Corrections: (The following items were deleted from the chart) 14:51 14:51 COMPREHENSIVE METABOLIC PANEL+C.LAB.BRZ ordered. EDMS EDMS 14:51 14:51 Urinalysis W/Microscopic+U.LAB.BRZ ordered. EDMS EDMS 17:09 16:24 Home rt rt 17:09 16:24 new rt rt 17:09 16:24 have improved rt rt 17:09 16:24 Stable rt rt 17:09 16:24 Gross hematuria rt rt 22:02 20:17 rt vc1
[2023-08-09] MEDS ORDERED: LIDOCAINE HCL JELLY 2% 6 ML SYRINGE TOP ONE (17:24)
[2023-08-09 19:13] LABS: Absolute Eosinophils 0.1 K/uL (0-0.5); Absolute Lymphocytes (CBC) 0.7 K/uL (0.7-4.9); Absolute Monocytes 0.6 K/uL (0.1-1.3); Absolute Neutrophil 6.5 K/uL (1.8-8.0); Basophils % 0.4 % (0-1.3); Hematocrit 31.6 % (39.6-49.0); Hemoglobin 10.6 g/dL (13.6-17.9); Lymphocytes % 9.2 % (15.3-44.8); MCH 32.5 pg (27.0-35.0); MCHC 33.6 g/dL (32.0-36.0); MCV 96.6 fL (80-100); MPV 10.1 fL (7.6-11.3); Neutrophils % 81.4 % (41.7-73.7); Nucleated Red Blood Cells % 0.1 % (0-0); Platelets 255 thou/uL (152-406); RBC Red Blood Cell Count 3.28 M/uL (4.33-5.43); Red Cell Distribution Width 15.3 % (12.1-15.2)
[2023-08-10 10:03] VITALS: BP 110/76; TEMP 98.2; O2SAT 100
== END 2023-08-09 22:02 | disposition short-term general hospital (02) ==
LOC: ER 14:42
PROC: 0T2BX0Z Change Drainage Device in Bladder, External Approach (ICD-10-PCS; principal; 2023-08-09)
DX: R31.0 Gross hematuria (principal)
CPT/HCPCS: 36415; 80053; 81001; 85025; 99285

== ENCOUNTER 2023-10-21 22:59 | Emergency (ER) | payer OTHER ==
[2023-10-21 23:42] LABS: Absolute Eosinophils 0.1 K/uL (0-0.5); Absolute Lymphocytes (CBC) 1.2 K/uL (0.7-4.9); Absolute Monocytes 0.9 K/uL (0.1-1.3); Absolute Neutrophil 5.5 K/uL (1.8-8.0); Basophils % 0.5 % (0-1.3); Eosinophils % 0.8 % (0-4.4); Hematocrit 31.9 % (39.6-49.0); Hemoglobin 10.5 g/dL (13.6-17.9); Lymphocytes % 15.2 % (15.3-44.8); MCH 32.2 pg (27.0-35.0); MCV 97.6 fL (80-100); MPV 10.3 fL (7.6-11.3); Monocytes % 11.2 % (3.3-12.3); Neutrophils % 72.3 % (41.7-73.7); Platelets 290 thou/uL (152-406); RBC Red Blood Cell Count 3.27 M/uL (4.33-5.43); Red Cell Distribution Width 17.3 % (12.1-15.2)
[2023-10-21 23:43] LABS: PT Prothrombin Time 10.3 SECONDS (9.4-12.5); Protime INR 0.92
[2023-10-21] MEDS ORDERED: METOPROLOL XL 50 MG TAB PO ONE (23:46)
[2023-10-21] MEDS ORDERED: NA CHLORIDE 0.9% 1,000 ML ONE ×2 (23:47→23:48)
[2023-10-21] MEDS ORDERED: MAGNESIUM SULFATE 1 gm IVPB 1 GM/100 ML BAG IV ONE (23:47)
[2023-10-21] MEDS ORDERED: METOPROLOL TARTRATE 5 MG/5 ML INJ IV ONE (23:47)
[2023-10-22 00:03] LABS: ALT/SGPT 33 U/L (16-61); AST/SGOT 23 U/L (15-37); Albumin 2.6 g/dL (3.4-5.0); Albumin/Globulin Ratio 0.6 (1.1-1.8); Alkaline Phosphatase 88 U/L (45-117); Anion Gap 10.3 mEq/L (5.0-15.0); BUN Blood Urea Nitrogen 80 mg/dL (7-18); Bicarbonate 25 mEq/L (21-32); Bilirubin Total 0.2 mg/dL (0.2-1.0); Globulin 4.3 g/dL (2.3-3.5); Glomerular Filtration Rate 16 ml/min (=/>90); Glucose Level 129 mg/dL (74-106); Magnesium 2.5 mg/dL (1.6-2.4); NT PRO-BNP 5142 pg/mL (<450); Potassium 4.3 mEq/L (3.5-5.1); Protein, Total 6.9 g/dL (6.4-8.2); Sodium Level 138 mEq/L (136-145); Troponin High Sensitivity 16.7 pg/mL (<58.9)
[2023-10-22 00:07] LABS: Bilirubin Direct < 0.2 mg/dL (0-0.2)
[2023-10-22 00:43] LABS: Specific Gravity 1.013 (1.005-1.030); Sqamous Epithelial None Seen /HPF (None Seen); Urine Bacteria <20 /HPF (<20); Urine Bilirubin NEGATIVE (Negative); Urine Blood 3+ (OVER) (Negative); Urine Clarity Extremely Turbid (Clear); Urine Color Light-Orange (Yellow); Urine Culture Reflex Order REFLEXED; Urine Glucose NEGATIVE (Negative); Urine Ketones NEGATIVE (Negative); Urine Microscopic Reflex YN ORDER UMIC; Urine Nitrite NEGATIVE (Negative); Urine Protein 2+ (Negative); Urine RBC >50 /HPF (None Seen); Urine Urobilinogen Normal (Normal); Urine WBC >50 /HPF (<5); Urine WBC Clump Many /HPF (None Seen); Urine pH 6.5 (5.0-7.0)
--- NOTE | 2023-10-22 00:46 | EDPHYS ---
Physician Documentation [facility] Name: Enzo Person Age: 83 yrs Sex: Male : 1940 Arrival Date: 10/21/2023 Time: 22:59 Bed 19 Private MD: ED Physician Matthew Alvarez HPI: 10/20 23:35 This 83 yrs old Male presents to ER via EMS with complaints of navas problem norberto and fast hr. 23:35 The patient presents with a history of heart racing. Context: The symptoms occur with norberto light activity. Onset: The symptoms/episode began/occurred just prior to arrival. Duration: The patient or guardian reports a single episode, that is still ongoing. Modifying factors: The symptoms are aggravated by nothing. The symptoms are alleviated by nothing. The patient presents with a Navas catheter problem, is not draining, removed and cant replace. Modifying factors: The symptoms are alleviated by nothing, the symptoms are aggravated by nothing. Associated signs and symptoms: Pertinent positives: dysuria. Associated signs and symptoms: The patient has no apparent associated signs or symptoms. Severity of symptoms: At their worst the symptoms were mild in the emergency department the symptoms are unchanged. Historical: - Immunization history:: Adult Immunizations Adult Immunizations up to date. - Infectious Disease History:: Denies. Denies. - Social history:: Smoking status: Patient denies any tobacco usage or history of. - Family history:: not pertinent. - Coronavirus screen:: The patient has NOT traveled to [place] in the past 14 days. - Ebola Screening: : No symptoms or risks identified at this time. ROS: 23:35 Constitutional: Negative for fever, chills, and weight loss, Eyes: Negative for injury, norberto pain, redness, and discharge, ENT: Negative for injury, pain, and discharge, Neck: Negative for injury, pain, and swelling, Respiratory: Negative for shortness of breath, cough, wheezing, and pleuritic chest pain, Abdomen/GI: Negative for abdominal pain, nausea, vomiting, diarrhea, and constipation, Back: Negative for injury and pain, MS/Extremity: Negative for injury and deformity, Skin: Negative for injury, rash, and discoloration, Neuro: Negative for headache, weakness, numbness, tingling, and seizure, Psych: Negative for depression, anxiety, suicide ideation, homicidal ideation, and hallucinations, Allergy/Immunology: Negative for hives, rash, and allergies, Endocrine: Negative for neck swelling, polydipsia, polyuria, polyphagia, and marked weight changes, Hematologic/Lymphatic: Negative for swollen nodes, abnormal bleeding, and unusual bruising, 23:35 Cardiovascular: Positive for palpitations, 23:35 : Positive for hematuria, cant get new navas in, Exam: 23:40 Constitutional: This is a well developed, well nourished patient who is awake, alert, norberto and in no acute distress. Head/Face: Normocephalic, atraumatic. Eyes: Pupils equal round and reactive to light, extra-ocular motions intact. Lids and lashes normal. Conjunctiva and sclera are non-icteric and not injected. Cornea within normal limits. Periorbital areas with no swelling, redness, or edema. ENT: Nares patent. No nasal discharge, no septal abnormalities noted. Tympanic membranes are normal and external auditory canals are clear. Oropharynx with no redness, swelling, or masses, exudates, or evidence of obstruction, uvula midline. Mucous membranes moist. Neck: Trachea midline, no thyromegaly or masses palpated, and no cervical lymphadenopathy. Supple, full range of motion without nuchal rigidity, or vertebral point tenderness. No Meningismus. Chest/axilla: Normal chest wall appearance and motion. Nontender with no deformity. No lesions are appreciated. Respiratory: Lungs have equal breath sounds bilaterally, clear to auscultation and percussion. No rales, rhonchi or wheezes noted. No increased work of breathing, no retractions or nasal flaring. Abdomen/GI: Soft, non-tender, with normal bowel sounds. No distension or tympany. No guarding or rebound. No evidence of tenderness throughout. Back: No spinal tenderness. No costovertebral tenderness. Full range of motion. Skin: Warm, dry with normal turgor. Normal color with no rashes, no lesions, and no evidence of cellulitis. MS/ Extremity: Pulses equal, no cyanosis. Neurovascular intact. Full, normal range of motion. Neuro: Awake and alert, GCS 15, oriented to person, place, time, and situation. Cranial nerves II-XII grossly intact. Motor strength 5/5 in all extremities. Sensory grossly intact. Cerebellar exam normal. Normal gait. Psych: Awake, alert, with orientation to person, place and time. Behavior, mood, and affect are within normal limits. 23:40 Cardiovascular: Rate: actual rate is 141 bpm, Rhythm: regular, Pulses: Pulses are 4+ in bilateral radial, brachial, femoral, popliteal, posterior tibial and and dorsalis pedis arteries.. Heart sounds: normal, Edema: is not appreciated, JVD: is not appreciated, 23:40 ECG was reviewed by the Attending Physician. 10/21 00:43 ECG was reviewed by the Attending Physician. norberto Vital Signs: 10/20 11:15 BP 118 / 77; Pulse 136; Resp 19; Temp 98.8(O); Pulse Ox 98% on R/A; Pain 0/10; mt4 23:37 BP 118 / 77; Pulse 136; Temp 98.8; Pulse Ox 98% on R/A; mt4 23:59 BP 125 / 67; Pulse 142; Resp 16; Pulse Ox 100% on R/A; mt4 10/21 00:17 BP 117 / 66; Pulse 82; mt4 01:00 BP 103 / 58; Pulse 82; Resp 19; Temp 98.4(O); Pulse Ox 95% on R/A; Pain 0/10; mt4 10/20 11:15 Pain Scale: Adult mt4 01:00 Pain Scale: Adult mt4 Carlos Coma Score: 01:47 Eye Response: spontaneous(4). Motor Response: obeys commands(6). Verbal Response: mt4 oriented(5). Total: 15. MDM: 10/20 23:13 Patient medically screened. nobrerto 23:38 Differential diagnosis: arrythmia, nonspecific abdominal pain, UTI, urinary retention, norbetro Navas catheter problem, prostatitis, urethritis. Data reviewed: vital signs, nurses notes, EMS record, lab test result(s), EKG, radiologic studies, plain films. Consideration of Admission/Observation Escalation of care including admission/observation considered. I considered the following discharge prescriptions or medication management in the emergency department Medications were administered in the Emergency Department. See MAR. Independent interpretation of the following test(s) in the Emergency Department EKG: See my EKG interpretation above. Test considered but Not performed: Ultrasound no 2 d echo. Historians other than the Patient: EMS: ems well informed. Care significantly affected by the following chronic conditions: Hypertension. Counseling: I had a detailed discussion with the patient and/or guardian regarding the historical points, exam findings, and any diagnostic results supporting the discharge/admit diagnosis, lab results, radiology results. 10/20 23:28 Order name: Basic Metabolic Panel; Complete Time: 00:23 [facility] 10/20 23:28 Order name: CBC with Diff; Complete Time: 00:23 [facility] 10/20 23:28 Order name: LFT's; Complete Time: 00:23 [facility] 10/20 23:28 Order name: Magnesium; Complete Time: 00:23 [facility] 10/20 23:28 Order name: NT PRO-BNP; Complete Time: 00:23 [facility] 10/20 23:28 Order name: PT-INR; Complete Time: 00:23 [facility] 10/20 23:28 Order name: Troponin HS; Complete Time: 00:23 [facility] 10/20 23:28 Order name: Urinalysis w/ reflexes [facility] 10/20 23:28 Order name: TSH; Complete Time: 00:23 [facility] 10/21 00:47 Order name: Urine Culture [facility] 10/20 23:28 Order name: XRAY Chest (1 view) [facility] 10/20 23:28 Order name: EKG; Complete Time: 23:29 [facility] 10/21 00:13 Order name: EKG; Complete Time: 00:14 [facility] 10/20 23:28 Order name: Cardiac monitoring; Complete Time: 23:41 [facility] 10/20 23:28 Order name: EKG - Nurse/Tech; Complete Time: 23:41 [facility] 10/20 23:28 Order name: IV Saline Lock; Complete Time: 23:41 [facility] 10/20 23:28 Order name: Labs collected and sent; Complete Time: 01:52 [facility] 10/20 23:28 Order name: O2 Per Protocol; Complete Time: 01:52 [facility] 10/20 23:28 Order name: O2 Sat Monitoring; Complete Time: 01:52 [facility] 10/20 23:28 Order name: Navas: exchange; Complete Time: 00:17 [facility] 10/21 00:13 Order name: EKG - Nurse/Tech; Complete Time: 00:40 [facility] EC:40 Rate is 141 beats/min. Rhythm is regular. QRS [place] is Normal. AR interval is normal. norberto QRS interval is normal. QT interval is normal. No Q waves. T waves are Normal. No ST changes noted. Clinical impression: Atrial Flutter and Sinus tachycardia. Interpreted by me. Reviewed by me. 10/21 00:43 Rate is 82 beats/min. Rhythm is regular. QRS [place] is Normal. AR interval is normal. QRS norberto interval is normal. QT interval is normal. No Q waves. T waves are Normal. No ST changes noted. Clinical impression: Normal ECG and No evidence of ischemia. Interpreted by me. Reviewed by me. Administered Medications: 10/20 23:59 Drug: NS 0.9% IV 500 ml IV at bolus once Route: IV; Rate: bolus; Site: right il4 antecubital; 23:59 Drug: Magnesium Sulfate IVPB 1 grams IVPB once over 1 hrs Route: IVPB; Infused Over: 1 mt4 hrs; Site: right antecubital; 10/21 01:29 Follow up: Response: No adverse reaction; IV Status: Completed infusion [facility] 10/20 23:59 Drug: Metoprolol IVP 5 mg IVP once; Hold for SBP <100 or HR <60. Route: IVP; Site: [facility] right antecubital; 10/21 01:29 Follow up: Response: No adverse reaction mt4 00:17 Drug: Metoprolol PO 50 mg PO once Route: PO; mt4 01:29 Follow up: Response: No adverse reaction mt4 00:40 Drug: NS 0.9% IV 1000 ml IV at 125 ml/hr continuous Route: IV; Rate: 125 ml/hr; Site: [facility] right forearm; 01:30 Follow up: Response: No adverse reaction mt4 01:30 Follow up: Response: No adverse reaction; IV Status: Completed infusion; IV Intake: mt4 1000ml 01:49 Follow up: IV Status: IV converted to saline lock mt4 01:50 Follow up: Response: No adverse reaction mt4 01:28 Drug: Aspirin PO Chewable Tablet 81 mg PO once Route: PO; mt4 01:49 Follow up: Response: No adverse reaction il4 Disposition Summary: 10/22/23 00:45 Discharge Ordered Notes: Location: Home norberto Problem: new norberto Symptoms: have improved norberto Condition: Stable norberto Diagnosis - Other mechanical complication of urinary (indwelling) catheter - replaced norberto - Typical atrial flutter - 2:1, resolved norberto - Unspecified kidney failure - chronic norberto Followup: norberto - With: Private Physician - When: 2 - 3 days - Reason: Recheck today's complaints, Continuance of care, Re-evaluation by your physician Followup: norberto - With: Joe Ruiz MD - When: 2 - 3 days - Reason: Recheck today's complaints, Re-evaluation by your physician Discharge Instructions: - Discharge Summary Sheet norberto - Indwelling Urinary Catheter Care, Adult norberto - Atrial Flutter norberto - Aspirin and Your Heart norberto - Chronic Kidney Disease, Adult, [id number] norberto - Indwelling Urinary Catheter Care, Adult, [id number] norberto Forms: - Medication Reconciliation Form norberto - Antibiotic Education norberto - Prescription Opioid Use norberto - Patient Portal Instructions [facility] - Leadership Thank You Letter [facility] Prescriptions: - Flomax 0.4 mg Oral capsule - take 1 capsule ORAL route once; 20 capsule; Refills: 0, Product Selection [facility] Permitted - Cipro 250 mg Oral tablet - take 1 tablet ORAL route every 12 hours; 14 tablet; Refills: 0, Product norberto Selection Permitted - Toprol XL 25 mg Oral Tablet - take 1 tablet ORAL route once daily; 20 tablet; Refills: 0, Product Selection norberto Permitted Signatures: Dispatcher [employer] EDMatthew Aragon MD MD cha Tath, Molinec, RN RN mt4 Corrections: (The following items were deleted from the chart) 10/20 23:29 23:29 BASIC METABOLIC PANEL+C.LAB.BRZ ordered. EDMS EDMS 23:29 23:29 CBC+H.LAB.BRZ ordered. EDMS EDMS 23:29 23:29 HEPATIC FUNCTION+C.LAB.BRZ ordered. EDMS EDMS 23:29 23:29 MAGNESIUM+C.LAB.BRZ ordered. EDMS EDMS 23:29 23:29 PROBNP+C.LAB.BRZ ordered. EDMS EDMS 23:29 23:29 PROTIME (+INR)+COAG.LAB.BRZ ordered. EDMS EDMS 23:29 23:29 Troponin High Sensitivity+C.LAB.BRZ ordered. EDMS EDMS 23:29 23:29 Urinalysis+U.LAB.BRZ ordered. EDMS EDMS 23:29 23:29 THYROID STIMULAT HORMONE+C.LAB.BRZ ordered. EDMS EDMS 23:34 23:33 PMHx: chronic back pain; mt4 mt4 23:34 23:33 PMHx: Anemia; mt4 mt4 23:34 23:33 PMHx: Dementia; mt4 mt4 23:34 23:33 PMHx: Hypothyroidism; mt4 mt4 23:34 23:33 PMHx: dysphasia; mt4 mt4 23:34 23:33 PMHx: BPH; mt4 mt4 23:34 23:33 PMHx: chronic kidney disease; mt4 mt4 23:34 23:33 PMHx: cognitive communication deficit; mt4 mt4 23:34 23:33 PMHx: Anemia; mt4 mt4
--- NOTE | 2023-10-22 00:46 | ER ---
Nurse's Notes [facility] Name: Enzo Person Age: 83 yrs Sex: Male : 1940 Arrival Date: 10/21/2023 Time: 22:59 Bed 19 Private MD: Diagnosis: Other mechanical complication of urinary (indwelling) catheter-replaced;Typical atrial flutter-2:1, resolved;Unspecified kidney failure-chronic Presentation: 10/20 11:15 Chief complaint: Patient states: patient arrived via EMS on a stretcher from [address] EMS states they were unable to put a catheter back in. Patient states "they told me they were gonna change the bag, I didn't realize they were going to replace the catheter. Patient denies any N/V/D, alert and orientated x4, but poor historian. Coronavirus screen: At this time, the client does not indicate any symptoms associated with coronavirus-19. Ebola Screen: No symptoms or risks identified at this time. Initial Sepsis Screen: Does the patient meet any 2 criteria? HR > 90 bpm. Does the patient have a suspected source of infection? No. Patient's initial sepsis screen is negative. Risk Assessment: Do you want to hurt yourself or someone else? Patient reports no desire to harm self or others. Onset of symptoms is unknown. 11:15 Method Of Arrival: EMS [facility] 11:15 Acuity: HUMERA 3 ma4 Triage Assessment: 23:33 General: Appears in no apparent distress. comfortable, slender, Behavior is calm, mt4 cooperative, appropriate for age. Pain: Denies pain. Neuro: Level of Consciousness is awake, alert, obeys commands, Oriented to person, place, time, situation, Appropriate for age Sales Project Administrator are equal bilaterally Weakness Speech is normal, Facial symmetry appears normal. Cardiovascular: Capillary refill < 3 seconds Rhythm is sinus tachycardia. Respiratory: Airway is patent. GI: Abdomen is flat, non-distended, Abd is non tender. : Penile discharge is blood smear on diaper. Musculoskeletal: Capillary refill < 3 seconds, Range of motion: limited in all extremities. Historical: - Immunization history:: Adult Immunizations Adult Immunizations up to date. - Infectious Disease History:: Denies. Denies. - Social history:: Smoking status: Patient denies any tobacco usage or history of. - Family history:: not pertinent. - Coronavirus screen:: The patient has NOT traveled to [place] in the past 14 days. - Ebola Screening: : No symptoms or risks identified at this time. Screenin:39 [facility] ED Fall Risk Assessment (Adult) History of falling in the last 3 months, mt4 including since admission Yes- single mechanical fall (1 pt) Confusion or Disorientation No (0 pts) Intoxicated or Sedated No (0 pts) Impaired Gait Yes (1 pt) Mobility Assist Device Used Yes (1 pt) Altered Elimination Yes (1 pt) Score/Fall Risk Level 3 or more points = High Risk. Abuse screen: Denies injuries from another. Nutritional screening: No deficits noted. Tuberculosis screening: No symptoms or risk factors identified. Exposure risk/Travel Screening: None identified. Assessment: 23:38 General: Appears in no apparent distress. comfortable, Behavior is calm, cooperative, mt4 appropriate for age. Pain: Denies pain. Neuro: Level of Consciousness is awake, alert, obeys commands, Oriented to person, place, time, situation, Appropriate for age. 10/21 01:32 General: Appears in no apparent distress. comfortable, slender, Behavior is calm, mt4 cooperative, appropriate for age. Pain: Denies pain. Neuro: Level of Consciousness is awake, alert, obeys commands, Oriented to person, place, time, situation, Appropriate for age Speech is normal. Cardiovascular: Capillary refill < 3 seconds Rhythm is regular. Respiratory: Airway is patent. GI: Abdomen is flat, non-distended. 01:47 General: Appears in no apparent distress. comfortable, Behavior is calm, cooperative, mt4 appropriate for age. 01:51 Reassessment: PATIENT DISCHARGE WITH TO CARE HOME. mt4 Vital Signs: 10/20 11:15 BP 118 / 77; Pulse 136; Resp 19; Temp 98.8(O); Pulse Ox 98% on R/A; Pain 0/10; mt4 23:37 BP 118 / 77; Pulse 136; Temp 98.8; Pulse Ox 98% on R/A; mt4 23:59 BP 125 / 67; Pulse 142; Resp 16; Pulse Ox 100% on R/A; mt4 10/21 00:17 BP 117 / 66; Pulse 82; mt4 01:00 BP 103 / 58; Pulse 82; Resp 19; Temp 98.4(O); Pulse Ox 95% on R/A; Pain 0/10; mt4 10/20 11:15 Pain Scale: Adult mt4 01:00 Pain Scale: Adult mt4 Gilmer Coma Score: 01:47 Eye Response: spontaneous(4). Motor Response: obeys commands(6). Verbal Response: mt4 oriented(5). Total: 15. ED Course: 10/20 23:10 Patient arrived in ED. jb4 23:13 Matthew Alvarez MD is Attending Physician. [facility] 23:23 Gloria Griffin, LUL is Primary Nurse. mt4 23:23 Initial lab(s) drawn, by wy, sent to lab. Inserted saline lock: 20 gauge in right jb4 antecubital area, using aseptic technique. Blood collected. 23:33 Triage completed. mt4 23:33 Arm band placed on right wrist. EKG completed in triage. Results shown to MD. EKG mt4 completed in triage. Results shown to MD. 23:38 No provider procedures requiring assistance completed. mt4 23:38 Patient has correct armband on for positive identification. Fall risk band placed. Bed mt4 in low position. Call light in reach. Side rails up X 1. Provided Education on: safety, medications, labs, IV . Noise minimized. Lights dimmed. Warm blanket given. Pillow given. Verbal reassurance given. Head of bed elevated. 23:39 Patient maintains SpO2 saturation greater than 95% on room air. mt4 10/21 00:00 XRAY Chest (1 view) In Process Unspecified. EDMS 00:20 Shell cath inserted, using sterile technique, 16 Fr., by wy, balloon inflated, to mt4 gravity drainage, clamped. urine specimen collected. 00:45 Joe Ruiz MD is Referral Physician. [facility] 01:32 Fall risk band placed. Call light in reach. Side rails up X 1. Noise minimized. Lights mt4 dimmed. Warm blanket given. Pillow given. Verbal reassurance given. Head of bed elevated. 01:47 IV discontinued, intact, bleeding controlled, No redness/swelling at site. Patient mt4 maintains SpO2 saturation greater than 95% on room air. Administered Medications: 10/20 23:59 Drug: NS 0.9% IV 500 ml IV at bolus once Route: IV; Rate: bolus; Site: right ma4 antecubital; 23:59 Drug: Magnesium Sulfate IVPB 1 grams IVPB once over 1 hrs Route: IVPB; Infused Over: 1 mt4 hrs; Site: right antecubital; 10/21 01:29 Follow up: Response: No adverse reaction; IV Status: Completed infusion mt4 10/20 23:59 Drug: Metoprolol IVP 5 mg IVP once; Hold for SBP <100 or HR <60. Route: IVP; Site: [facility] right antecubital; 10/21 01:29 Follow up: Response: No adverse reaction mt4 00:17 Drug: Metoprolol PO 50 mg PO once Route: PO; mt4 01:29 Follow up: Response: No adverse reaction mt4 00:40 Drug: NS 0.9% IV 1000 ml IV at 125 ml/hr continuous Route: IV; Rate: 125 ml/hr; Site: [facility] right forearm; 01:30 Follow up: Response: No adverse reaction mt4 01:30 Follow up: Response: No adverse reaction; IV Status: Completed infusion; IV Intake: mt4 1000ml 01:49 Follow up: IV Status: IV converted to saline lock mt4 01:50 Follow up: Response: No adverse reaction mt4 01:28 Drug: Aspirin PO Chewable Tablet 81 mg PO once Route: PO; mt4 01:49 Follow up: Response: No adverse reaction mt4 Medication: 10/20 23:40 VIS not applicable for this client. mt4 Intake: 10/21 01:30 IV: 1000ml; Total: 1000ml. mt4 Outcome: 00:45 Discharge ordered by MD. thornton 01:47 Discharged to halfway. Report called to CHARGE NURSE CALLED REPORT mt4 01:47 Condition: stable 01:47 Discharge instructions given to patient, Instructed on discharge instructions, follow up and referral plans. safety practices, Demonstrated understanding of instructions, follow-up care, medications, Prescriptions given X 3, 01:51 Patient left the ED. mt4 Signatures: Dispatcher [employer] EDMS Matthew Alvarez MD MD cha Bryson, James, RN RN jb4 Gloria Griffin RN RN mt4 Corrections: (The following items were deleted from the chart) 10/20 23:34 23:33 PMHx: chronic back pain; mt4 mt4 23:34 23:33 PMHx: Anemia; mt4 mt4 23:34 23:33 PMHx: Dementia; mt4 mt4 23:34 23:33 PMHx: Hypothyroidism; mt4 mt4 23:34 23:33 PMHx: dysphasia; mt4 mt4 23:34 23:33 PMHx: BPH; mt4 mt4 23:34 23:33 PMHx: chronic kidney disease; mt4 mt4 23:34 23:33 PMHx: cognitive communication deficit; mt4 mt4 23:34 23:33 PMHx: Anemia; mt4 mt4
[2023-10-22] MEDS ORDERED: ASPIRIN 81 MG CHEWABLE TABLET ONE (01:27)
[2023-10-22 02:23] VITALS: BP 103/58; TEMP 98.4; O2SAT 95
--- NOTE | 2023-10-22 11:25 | RAD REPORT ---
EXAM DESCRIPTION: RAD - Chest Single View - 10/21/2023 11:58 pm CLINICAL HISTORY: The patient is 83 years old and is Male; COUGH TECHNIQUE: Frontal view of the chest. COMPARISON: No relevant prior studies available. FINDINGS: LUNGS: Unremarkable. No consolidation. PLEURAL SPACE: Unremarkable. No pneumothorax. HEART: Unremarkable. No cardiomegaly. MEDIASTINUM: Unremarkable. Normal mediastinal contour. BONES/JOINTS: Unremarkable. No acute fracture. VASCULATURE: Atherosclerosis of the aorta is present. UPPER ABDOMEN: Unremarkable as visualized. IMPRESSION: No acute cardiopulmonary process. Electronically signed by: Tamar Hernandez MD 10/22/2023 12:42 AM CDT RP Due to temporary technical issues with the PACS/Fluency reporting system, reports are being signed by the in house radiologist without review as a courtesy to ensure prompt reporting. The interpreting r adiologist is fully responsible for the content of the report.
--- NOTE | 2023-10-23 14:09 | EKG ---
Test Date: 2023-10-21 Test Time: 23:18:24 General Teller: MOHAN MEASUREMENT RESULTS: Intervals: Rate: 141 [place]: QRSD: 92 QT: 302 QTc: 462 [place]: P: VT: QRS: 81 T: 80 INTERPRETIVE STATEMENTS: Supra-ventricular tachycardia Otherwise normal ECG Electronically Signed On 10-23-23 14:07:35 CDT by Joe Ruiz
--- NOTE | 2023-10-23 14:09 | EKG ---
Test Date: 2023-10-22 Test Time: 00:36:40 Public Relations Associate: MOHAN MEASUREMENT RESULTS: Intervals: Rate: 82 [place]: 142 QRSD: 84 QT: 376 QTc: 439 [place]: P: 83 [place]: 142 QRS: 81 T: 81 INTERPRETIVE STATEMENTS: Normal sinus rhythm Normal ECG Compared to ECG 10/21/2023 23:18:24 No significant changes Electronically Signed On 10-23-23 14:07:06 CDT by Joe Ruiz
== END 2023-10-22 01:51 | disposition home or self-care (01) ==
LOC: ER 22:59
DX: T83.098A Other mechanical complication of other urinary catheter, initial encounter (principal); I48.3 Typical atrial flutter; K72.10 Chronic hepatic failure without coma
CPT/HCPCS: 96365; 93005 ×2; 87088; 85025; 81001; 87086; 80048; 36415; 83735; 85610; 80076; 84443; 87077 ×3; 87186 ×3; 84484; 83880; 71045; 51702; 96375; 99285; J3475; J7030 ×2

== ENCOUNTER 2023-12-06 16:54 | Inpatient (IN) | payer OTHER ==
[2023-12-06] MEDS ORDERED: Meropenem 1000 MG/VIAL IV ONE (17:23)
[2023-12-06] MEDS ORDERED: ACETAMINOPHEN 500 MG TAB ONE (17:23)
[2023-12-06] MEDS ORDERED: NA CHLORIDE 0.9% 100 ML ONE (17:24)
[2023-12-06] MEDS ORDERED: NA CHLORIDE 0.9% 2,000 ML ONE (17:24)
[2023-12-06] MEDS ORDERED: NA CHLORIDE 0.9% 500 ML ONE (17:24)
[2023-12-06 17:39] LABS: Absolute Basophils 0.1 K/uL (0-0.5); Absolute Lymphocytes (CBC) 0.8 K/uL (0.7-4.9); Absolute Monocytes 1.4 K/uL (0.1-1.3); Absolute Neutrophil 8.3 K/uL (1.8-8.0); Basophils % 0.5 % (0-1.3); Eosinophils % 0.4 % (0-4.4); Hematocrit 32.8 % (39.6-49.0); Hemoglobin 11.1 g/dL (13.6-17.9); Lymphocytes % 7.2 % (15.3-44.8); MCHC 33.9 g/dL (32.0-36.0); MCV 100.4 fL (80-100); MPV 10.5 fL (7.6-11.3); Monocytes % 13.1 % (3.3-12.3); Neutrophils % 78.8 % (41.7-73.7); Platelets 189 thou/uL (152-406); RBC Red Blood Cell Count 3.27 M/uL (4.33-5.43); Red Cell Distribution Width 13.6 % (12.1-15.2)
[2023-12-06 17:41] LABS: PT Prothrombin Time 11.8 SECONDS (9.4-12.5); Protime INR 1.06
--- NOTE | 2023-12-06 17:52 | RAD REPORT ---
EXAMINATION: CT HEAD WITHOUT CONTRAST CT CERVICAL SPINE WITHOUT CONTRAST CLINICAL INDICATION: Male, 83 years old. Fever;Pain TECHNIQUE: Axial CT images from the skull base to the vertex without intravenous contrast. Axial CT i mages through the cervical spine were obtained without intravenous contrast. Sagittal and coronal reformatted images were created from the data set. Coronal and sagittal reformatted images were creat ed from the data set. One or more of the following dose reduction techniques were used: Automated exposure control, adjustment of the mA and/or kV according to patient size, and/or iterative reconstr uction. Unless otherwise specified, incidental findings do not require dedicated imaging follow-up. [id number]. COMPARISON: 08/09/2023 FINDINGS: Head: INTRACRANIAL: No acute intracranial hemorrhage. No hydrocephalus. No mass effect or midline shift. No significant white matter disease. VASCULATURE: No visualized abnormalities in the arteries or dural venous sinuses. SCALP/SKULL: No significant soft tissue or osseous abnormalities. SINUSES: The visualized paranasal sinuses and mastoid air cells are predominantly clear. Cervical spine: ALIGNMENT: The cervical spine has normal alignment without scoliosis or spondylolisthesis. BONE: Vertebral body heights are maintained. No aggressive osseous lesions. DEGENERATIVE CHANGES: Mild multilevel cervical spondylosis with varying degrees of neural foraminal n arrowing. SOFT TISSUE: No significant abnormalities in the soft tissue of the neck. The visualized lung apices are clear. IMPRESSION: No acute intracranial abnormality. No acute fracture or traumatic malalignment of the cervical spine.
[2023-12-06 17:57] LABS: ALT/SGPT 58 U/L (16-61); AST/SGOT 33 U/L (15-37); Albumin/Globulin Ratio 0.7 (1.1-1.8); Alkaline Phosphatase 89 U/L (45-117); Anion Gap 9.7 mEq/L (5.0-15.0); BUN Blood Urea Nitrogen 74 mg/dL (7-18); Bicarbonate 25 mEq/L (21-32); Bilirubin Total 0.4 mg/dL (0.2-1.0); Globulin 4.3 g/dL (2.3-3.5); Glomerular Filtration Rate 15 ml/min (=/>90); Glucose Level 129 mg/dL (74-106); Lipase 55 U/L (13-75); Magnesium 2.4 mg/dL (1.6-2.4); NT PRO-BNP 921 pg/mL (<450); Potassium 4.7 mEq/L (3.5-5.1); Protein, Total 7.3 g/dL (6.4-8.2); Sodium Level 139 mEq/L (136-145); Troponin High Sensitivity 16.7 pg/mL (<58.9)
[2023-12-06 18:00] LABS: Bilirubin Direct < 0.2 mg/dL (0-0.2); Bilirubin Indirect, Calculated 0.2 mg/dL (0.2-0.8); SARS-CoV-2 Antigen CONTROL BLUE LINE VIS/BG OK; SARS-CoV-2 Antigen Rapid Res Negative (Negative)
[2023-12-06 18:06] LABS: Specific Gravity 1.012 (1.005-1.030); Sqamous Epithelial None Seen /HPF (None Seen); Urine Bacteria <20 /HPF (<20); Urine Bilirubin NEGATIVE (Negative); Urine Blood 3+ (Negative); Urine Clarity Extremely Turbid (Clear); Urine Color Light-Orange (Yellow); Urine Crystals Unidentified Few /HPF (None Seen); Urine Culture Reflex Order REFLEXED; Urine Glucose NEGATIVE (Negative); Urine Ketones NEGATIVE (Negative); Urine Microscopic Reflex YN ORDER UMIC; Urine Nitrite 1+ (Negative); Urine Protein 2+ (Negative); Urine RBC >50 /HPF (None Seen); Urine Urobilinogen Normal (Normal); Urine WBC >50 /HPF (<5); Urine WBC Clump Many /HPF (None Seen); Urine Yeast (Budding) Many /HPF (None Seen)
--- NOTE | 2023-12-06 18:12 | RAD REPORT ---
EXAM: CT CHEST, ABDOMEN AND PELVIS WITHOUT CONTRAST CLINICAL INDICATION: Male, 83 years old Cough;Dyspnea;Fever;Pain TECHNIQUE: CT chest, abdomen and pelvis was performed, without IV contrast, as per department protoco l. Axial, sagittal and coronal reconstructions were obtained. One or more of the following dose reduction techniques were used: Automated exposure control, adjustment of the mA and/or kV according to the patient size, and/or iterative reconstruction. Unless otherwise specified, incidental findings do not require dedicated imaging follow-up. [id number]. COMPARISON: 07/02/2023, 08/07/2023, 06/11/2023 FINDINGS: The lack of intravenous contrast limits the sensitivity of this exam for evaluation of solid visceral organs, vascular structures, and retroperitoneum. Chest: LOWER NECK/CHEST WALL: Visualized thyroid gland and soft tissues are normal. LUNGS AND AIRWAYS: Scattered areas of nodularity micronodularity bilaterally. This is best seen in th e right upper lobe. This could reflect a chronic or indolent infectious process. Scarring in the right lower lobe. PLEURA: No pleural effusion. No pneumothorax. Hemidiaphragms are normally positioned. MEDIASTINUM AND LYMPH NODES: No mediastinal mass or fluid collection. Normal size mediastinal, hilar, and axillary lymph nodes. THORACIC AORTA: Normal caliber and configuration. PULMONARY ARTERIES: Normal caliber. HEART: Mild coronary calcifications. Abdomen/Pelvis LIVER: Low-density lesion right hepatic lobe has benign imaging features. GALLBLADDER/BILE DUCTS: Cholelithiasis. No evidence of acute cholecystitis. PANCREAS: No mass, ductal dilation, or michi-pancreatic fluid. SPLEEN: Normal size. No focal lesion. ADRENALS: Normal; no mass. KIDNEYS AND URETERS: Renal scarring. Bilateral ureteral stents. Left upper pole renal cyst. Trace gas in the right collecting system may be from prior instrumentation. GASTROINTESTINAL TRACT: Stomach is non-dilated. Small bowel has normal course and caliber. No colonic wall thickening or pericolonic inflammatory changes. Moderate stool present. PERITONEUM: No free fluid. LYMPH NODES: No lymphadenopathy. ABDOMINAL AORTA AND OTHER VESSELS: Normal caliber aorta and IVC. URINARY BLADDER: Bladder is decompressed by Shell catheter. Ureteral stents terminate in the bladder. REPRODUCTIVE ORGANS: Severe prostatomegaly. The prostate measures 6.5 cm in transverse dimension. MUSCULOSKELETAL: No acute or suspicious osseous abnormality. Moderate degenerative changes are presen t at L4-5. There are some endplate irregularity which has been present but has progressed since both 06/11/2023 and 07/02/2023. ADDITIONAL FINDINGS: None IMPRESSION: 1. No definite acute process involving the lungs. Micronodularity in the right upper lobe could refle ct mild infection or inflammation but may be a more chronic/indolent infectious process. 2. Bilateral ureteral stents in place. No hydronephrosis. Small volume of right collecting system gas could be as a result of instrumentation. Correlate with urinalysis. 3. Moderate endplate irregularity and sclerosis at L4-5 which was originally seen on the 07/02/2023 CT and could reflect sequela of treated or chronic discitis/osteomyelitis. No paraspinal collection identified.
[2023-12-06] MEDS ORDERED: METOPROLOL TAR 25 MG TAB ONE (18:25)
--- NOTE | 2023-12-06 18:25 | EDPHYS ---
Physician Documentation [facility] Name: Enzo Person Age: 83 yrs Sex: Male : 1940 Arrival Date: 12/06/2023 Time: 16:54 Bed 3 Private MD: ED Physician Matthew Alvarez HPI: 12/05 18:15 This 83 yrs old Male presents to ER via EMS with complaints of Fall Injury. norberto 18:15 Details of fall: The patient fell from an upright position, while walking. Onset: The norberto symptoms/episode began/occurred just prior to arrival. Associated injuries: The patient sustained no obvious injury. Severity of symptoms: At their worst the symptoms were mild, in the emergency department the symptoms are unchanged. Historical: - Allergies: 17:37 PENICILLINS; db - Immunization history:: Adult Immunizations unknown. - Infectious Disease History:: Denies. - Social history:: Smoking status: Patient denies any tobacco usage or history of. ROS: 18:15 Constitutional: Negative for fever, chills, and weight loss, Eyes: Negative for injury, norberto pain, redness, and discharge, ENT: Negative for injury, pain, and discharge, Neck: Negative for injury, pain, and swelling, Respiratory: Negative for shortness of breath, cough, wheezing, and pleuritic chest pain, Abdomen/GI: Negative for abdominal pain, nausea, vomiting, diarrhea, and constipation, Back: Negative for injury and pain, : Negative for injury, bleeding, discharge, and swelling, MS/Extremity: Negative for injury and deformity, Skin: Negative for injury, rash, and discoloration, Psych: Negative for depression, anxiety, suicide ideation, homicidal ideation, and hallucinations, Allergy/Immunology: Negative for hives, rash, and allergies, Endocrine: Negative for neck swelling, polydipsia, polyuria, polyphagia, and marked weight changes, Hematologic/Lymphatic: Negative for swollen nodes, abnormal bleeding, and unusual bruising, 18:15 Cardiovascular: Positive for palpitations, 18:15 Neuro: Positive for dizziness, weakness, Exam: 18:15 Head/Face: Normocephalic, atraumatic. Eyes: Pupils equal round and reactive to light, norberto extra-ocular motions intact. Lids and lashes normal. Conjunctiva and sclera are non-icteric and not injected. Cornea within normal limits. Periorbital areas with no swelling, redness, or edema. ENT: Nares patent. No nasal discharge, no septal abnormalities noted. Tympanic membranes are normal and external auditory canals are clear. Oropharynx with no redness, swelling, or masses, exudates, or evidence of obstruction, uvula midline. Mucous membranes moist. Neck: Trachea midline, no thyromegaly or masses palpated, and no cervical lymphadenopathy. Supple, full range of motion without nuchal rigidity, or vertebral point tenderness. No Meningismus. Chest/axilla: Normal chest wall appearance and motion. Nontender with no deformity. No lesions are appreciated. Respiratory: Lungs have equal breath sounds bilaterally, clear to auscultation and percussion. No rales, rhonchi or wheezes noted. No increased work of breathing, no retractions or nasal flaring. Abdomen/GI: Soft, non-tender, with normal bowel sounds. No distension or tympany. No guarding or rebound. No evidence of tenderness throughout. Back: No spinal tenderness. No costovertebral tenderness. Full range of motion. Male : Normal genitalia with no discharge or lesions. Skin: Warm, dry with normal turgor. Normal color with no rashes, no lesions, and no evidence of cellulitis. MS/ Extremity: Pulses equal, no cyanosis. Neurovascular intact. Full, normal range of motion. Neuro: Awake and alert, GCS 15, oriented to person, place, time, and situation. Cranial nerves II-XII grossly intact. Motor strength 5/5 in all extremities. Sensory grossly intact. Cerebellar exam normal. Normal gait. Psych: Awake, alert, with orientation to person, place and time. Behavior, mood, and affect are within normal limits. 18:15 Constitutional: The patient appears febrile, 18:15 Cardiovascular: Rate: tachycardic, actual rate is 147 bpm, Rhythm: regular, Pulses: Pulses are 4+ in bilateral radial, brachial, femoral, popliteal, posterior tibial and and dorsalis pedis arteries.. Heart sounds: normal, Edema: is not appreciated, JVD: is not appreciated, 18:15 ECG was reviewed by the Attending Physician. 18:15 Musculoskeletal/extremity: ROM: intact in all extremities, full active range of motion, full passive range of motion, Circulation is intact in all extremities. Pulses: Sensation intact. Compartment Syndrome exam of affected extremity: is normal. Weight bearing: able to fully bear weight, without difficulty, DVT Exam: No signs of deep vein thrombosis. no pain, no swelling, no tenderness, negative Homans' sign noted on exam, no appreciated bluish discoloration, no erythema, no increased warmth, 18:15 Neuro: Orientation: is normal, appropriate for stated age, no acute changes, Mentation: is normal, appropriate for stated age, no acute changes, Memory: no acute changes, per EMS, Cranial nerves: grossly normal, is grossly normal based on the patient's age, no acute changes, Cerebellar function: is grossly normal, Motor: is grossly normal based on the patient's age, no acute changes, moves all fours, strength is normal, strength is 5/5 in all extremities, Sensation: no obvious gross deficits, appropriate no acute changes, Gait: not tested. seizure activity, is not displayed by the patient, 18:48 ECG was reviewed by the Attending Physician. norberto Vital Signs: 16:58 BP 116 / 58; Pulse 153; Resp 18; Temp 101(O); Pulse Ox 97% on R/A; rs5 17:00 BP 117 / 76; Pulse 158; Resp 18; Pulse Ox 98% on R/A; db 17:48 BP 125 / 73; Pulse 147; Resp 15; Pulse Ox 98% on R/A; db 18:00 BP 130 / 69; Pulse 141; Resp 20; Pulse Ox 98% on R/A; db 18:35 BP 125 / 57; Pulse 88; Resp 14; Pulse Ox 99% ; db 18:39 BP 119 / 62; Pulse 90; Resp 14; Pulse Ox 97% on R/A; db 19:44 BP 107 / 89; Pulse 77; Resp 15; Temp 98.6; Pulse Ox 99% on R/A; al5 Carlos Coma Score: 18:15 Eye Response: spontaneous(4). Motor Response: obeys commands(6). Verbal Response: norberto oriented(5). Total: 15. MDM: 17:07 Medical Screening Exam initiated norberto 18:27 Differential diagnosis: arrythmia, dehydration, stress disorder, viral Infection, norberto bacterial infection, URI, bronchitis, pneumonia UTI, gastroenteritis. Differential Diagnosis altered mental status, sepsis, flu. Differential diagnosis: abrasion, closed head injury, contusion, fracture, laceration, multiple trauma, sprain, strain. Data reviewed: vital signs, nurses notes, EMS record, lab test result(s), EKG, radiologic studies, CT scan, plain films. Consideration of Admission/Observation Escalation of care including admission/observation considered. I considered the following discharge prescriptions or medication management in the emergency department Medications were administered in the Emergency Department. See MAR. Independent interpretation of the following test(s) in the Emergency Department EKG: See my EKG interpretation above. Test considered but Not performed: Ultrasound NO 2 D ECHO. Historians other than the Patient: EMS: EMS WELL INFORMED. Care significantly affected by the following chronic conditions: Hypertension. 12/05 17:08 Order name: Basic Metabolic Panel; Complete Time: 18:06 norberto 12/05 17:08 Order name: CBC with Diff; Complete Time: 18:06 norberto 12/05 17:08 Order name: LFT's; Complete Time: 18:06 norberto 12/05 17:08 Order name: Magnesium; Complete Time: 18:06 12/05 17:08 Order name: NT PRO-BNP; Complete Time: 18:06 norberto 12/05 17:08 Order name: PT-INR; Complete Time: 18:06 norberto 12/05 17:08 Order name: Troponin HS; Complete Time: 18:06 norberto 12/05 17:08 Order name: Lipase; Complete Time: 18:06 norberto 12/05 17:09 Order name: Urinalysis w/ reflexes; Complete Time: 18:13 norberto 12/05 17:09 Order name: Strep norberto 12/05 17:09 Order name: Flu; Complete Time: 18:06 norberto 12/05 17:09 Order name: SARS RAPID; Complete Time: 18:07 norberto 12/05 17:15 Order name: Blood Culture Adult (2) norberto 12/05 17:15 Order name: Lactate w/ 2H reflex if indic.; Complete Time: 18:07 norberto 12/05 18:04 Order name: Throat Culture EDAL 12/05 18:09 Order name: Urine Culture EDAL 12/05 18:52 Order name: Lactate w/ 2H reflex if indic. EDMS 12/05 18:52 Order name: Urinalysis w/ reflexes EDMS 12/05 18:52 Order name: CBC with Automated Diff EDMS 12/05 18:52 Order name: CBC with Automated Diff EDMS 12/05 18:52 Order name: Comprehensive Metabolic Panel [facility] 12/05 18:52 Order name: Comprehensive Metabolic Panel [facility] 12/05 17:08 Order name: XRAY Chest (1 view) [facility] 12/05 17:08 Order name: CT Head C Spine; Complete Time: 18:[address] [facility] 12/05 17:08 Order name: CT Chest Abdomen Pelvis W/O Contrast; Complete Time: 18:[address] [facility] 12/05 17:08 Order name: EKG; Complete Time: 17:[address] [facility] 12/05 17:08 Order name: Cardiac monitoring; Complete Time: 17:[address] [facility] 12/05 17:08 Order name: EKG - Nurse/Tech; Complete Time: 17:[address] [facility] 12/05 17:08 Order name: IV Saline Lock; Complete Time: 17:[address] [facility] 12/05 17:08 Order name: Labs collected and sent; Complete Time: 17:[address] [facility] 12/05 17:08 Order name: O2 Per Protocol; Complete Time: 17:[address] [facility] 12/05 17:08 Order name: O2 Sat Monitoring; Complete Time: 17:[address] [facility] 12/05 18:40 Order name: EKG - Nurse/Tech; Complete Time: 18:[address] [facility] EC:15 Rate is 158 beats/min. Rhythm is regular. QRS [place] is Normal. OR interval is normal. norberto QRS interval is normal. QT interval is normal. No Q waves. T waves are Normal. No ST changes noted. Clinical impression: Atrial Fibrillation and No evidence of ischemia. Interpreted by me. Reviewed by me. 18:48 Rate is 92 beats/min. Rhythm is regular. QRS [place] is Normal. OR interval is normal. QRS norberto interval is normal. QT interval is normal. No Q waves. T waves are Normal. No ST changes noted. Clinical impression: Normal ECG and No evidence of ischemia. Interpreted by me. Reviewed by me. Administered Medications: 17:20 Drug: Acetaminophen PO 1000 mg PO once Route: PO; db 19:33 Follow up: Response: No adverse reaction; Temperature is decreased al5 17:25 Drug: NS 0.9% IV 500 ml IV at bolus continuous Route: IV; Rate: bolus; Site: left db forearm; 19:32 Follow up: Response: No adverse reaction; IV Status: Completed infusion; IV Intake: al5 500ml 17:30 Drug: NS 0.9% IV 1000 ml IV at 1000 ml once; to be given as a bolus over 60 minutes db Route: IV; Rate: 1000 ml; Site: left forearm; 19:33 Follow up: Response: No adverse reaction; IV Status: Completed infusion; IV Intake: al5 1000ml 17:37 Drug: Meropenem IV 1 grams IV at per protocol once; (mix in NS 100 mL) Route: IV; Rate: db per protocol; Site: left forearm; 19:32 Follow up: Response: No adverse reaction; IV Status: Completed infusion; IV Intake: al5 100ml 18:28 Drug: Metoprolol IVP 2.5 mg IVP once; Hold for SBP <100 or HR <60. Route: IVP; Site: left wrist; 18:56 Follow up: Response: No adverse reaction; Cardiac rhythm changed db 18:28 Drug: Metoprolol PO 25 mg PO once Route: PO; db 18:55 Follow up: Response: No adverse reaction; Cardiac rhythm changed db 18:29 Drug: Magnesium Sulfate IVPB 1 grams IVPB once over 1 hrs Route: IVPB; Infused Over: 1 db hrs; Site: left wrist; 19:41 Follow up: Response: No adverse reaction; IV Status: Completed infusion; IV Intake: al5 100ml 18:55 CANCELLED (Physician Discretion): metoprolol2.5 mg IVP once; Hold for SBP <100 or HR db <60. 18:55 CANCELLED (Physician Discretion): metoprolol2.5 mg IVP once; Hold for SBP <100 or HR db <60. 19:40 Drug: Famotidine IVP 20 mg IVP once; dilute with 10 mL 0.9% NaCl; give over 2 minutes al5 Route: IVP; Site: left forearm; 20:19 Follow up: Response: No adverse reaction al5 19:41 Drug: NS 0.9% IV 1000 ml IV at 125 ml/hr continuous Route: IV; Rate: 125 ml/hr; Site: al5 left forearm; 19:41 Follow up: Response: No adverse reaction; IV Status: Infusion continued upon admission al5 19:41 Drug: LevOfloxacin PO 500 mg PO once Route: PO; al5 20:20 Follow up: Response: No adverse reaction al5 Disposition Summary: 12/06/23 18:24 Hospitalization Ordered Notes: Hospitalization Status: Inpatient Admission norberto Provider: Charlie West cha Location: Telemetry/MedSurg (Inpatient) norberto Condition: Fair norberto Problem: new norberto Symptoms: have improved norberto Bed/Room Type: Standard [facility] Room Assignment: 232(12/06/23 18:57) sp Diagnosis - Fever, unspecified norberto - Severe sepsis without septic shock norberto - Other mechanical complication of urinary (indwelling) catheter norberto - Persistent atrial fibrillation - with RVR norberto - Fall on same level, unspecified norberto - UTI/ Urinary tract infection, site not specified - BILATERAL DOUBLE J STENTS , IN norberto PLACE , SMALL AIR RIGHT COLLECTING SYSTEM(12/06/23 18:25) - Anemia in chronic kidney disease norberto - Chronic kidney disease, stage 5 norberto Forms: - Medication Reconciliation Form norberto - SBAR form norberto - Leadership Thank You Letter norberto Signatures: Dispatcher [employer] EDMS Matthew Alvarez MD MD cha Pinkerton, Shawna sp Benton, Danielle, RN RN db Nurys West RN RN al5 Corrections: (The following items were deleted from the chart) 17:09 17:09 Chest Single View+[id number].[email or web address].[email or web address] ordered. EDAL EDAL 18:25 18:24 UTI/ Urinary tract infection, site not specified norberto norberto 18:55 18:13 Metoprolol IVP 2.5 mg IVP once; Hold for SBP <100 or HR <60. ordered. [facility] db 18:55 18:30 Metoprolol IVP 2.5 mg IVP once; Hold for SBP <100 or HR <60. ordered. [facility] db 18:57 18:24 norberto sp
--- NOTE | 2023-12-06 18:25 | ER ---
Nurse's Notes [facility] Name: Enzo Person Age: 83 yrs Sex: Male : 1940 Arrival Date: 12/06/2023 Time: 16:54 Bed 3 Private MD: Diagnosis: Fever, unspecified;Severe sepsis without septic shock;UTI/ Urinary tract infection, site not specified-BILATERAL DOUBLE J STENTS , IN PLACE , SMALL AIR RIGHT COLLECTING SYSTEM;Other mechanical complication of urinary (indwelling) catheter;Persistent atrial fibrillation-with RVR;Fall on same level, unspecified;Anemia in chronic kidney disease;Chronic kidney disease, stage 5 Presentation: 12/05 16:58 Chief complaint: EMS states: [facility] toned EMS for high heart rate in rs5 150's, and temp of 101, pt fell this morning from bed to ground, fall was unwitnessed, pt denies LOC, denies pain or SOB. Coronavirus screen: At this time, the client does not indicate any symptoms associated with coronavirus-19. Ebola Screen: No symptoms or risks identified at this time. Initial Sepsis Screen: Does the patient meet any 2 criteria? Temp <36.0*C (96.8*F)) or > 38.3*C (100.9*F). HR > 90 bpm. Yes Does the patient have a suspected source of infection? No. Patient's initial sepsis screen is negative. Risk Assessment: Do you want to hurt yourself or someone else? Patient reports no desire to harm self or others. Onset of symptoms was December 06, 2023. 16:58 Method Of Arrival: EMS: [facility] 16:58 Acuity: HUMERA 3 rs5 Historical: - Allergies: 17:37 PENICILLINS; db - Immunization history:: Adult Immunizations unknown. - Infectious Disease History:: Denies. - Social history:: Smoking status: Patient denies any tobacco usage or history of. Screenin:05 [facility] ED Fall Risk Assessment (Adult) History of falling in the last 3 months, db including since admission Yes- physiologic fall (2 pts) Confusion or Disorientation Yes (5 pts) Intoxicated or Sedated No (0 pts) Impaired Gait No (0 pts) Mobility Assist Device Used No (0 pt) Altered Elimination Yes (1 pt) Score/Fall Risk Level 3 or more points = High Risk Oriented to surroundings, Maintained a safe environment, Hourly rounding (assess needs \T\ fall precautionary measures) done. Abuse screen: Denies threats or abuse. Denies injuries from another. Nutritional screening: No deficits noted. Tuberculosis screening: No symptoms or risk factors identified. Assessment: 17:37 Reassessment: Patient appears in no apparent distress at this time. Patient and/or db family updated on plan of care and expected duration. Pain level reassessed. General: Appears in no apparent distress. comfortable, Behavior is calm, cooperative. Pain: Denies pain. Neuro: Level of Consciousness is awake, alert, obeys commands, Oriented to person, place, time, situation. 18:34 Reassessment: Patient appears in no apparent distress at this time. Patient and/or db family updated on plan of care and expected duration. Pain level reassessed. 19:42 General: Appears in no apparent distress. comfortable, Behavior is calm, cooperative. al5 Pain: Denies pain. Neuro: Level of Consciousness is awake, alert, obeys commands, Oriented to Appropriate for age. Cardiovascular: Capillary refill < 3 seconds Patient's skin is warm and dry. Respiratory: Airway is patent Respiratory effort is even, unlabored, Respiratory pattern is regular, symmetrical. GI: No signs and/or symptoms were reported involving the gastrointestinal system. Abdomen is flat, non-distended. : Shell in place to gravity drainage clamped. EENT: No signs and/or symptoms were reported regarding the EENT system. Derm: Skin is intact, Skin is pink, warm \T\ dry. normal. Derm: wound to L outer thigh, in process of healing, has scabbed over. Musculoskeletal: No signs and/or symptoms reported regarding the musculoskeletal system. Vital Signs: 16:58 BP 116 / 58; Pulse 153; Resp 18; Temp 101(O); Pulse Ox 97% on R/A; rs5 17:00 BP 117 / 76; Pulse 158; Resp 18; Pulse Ox 98% on R/A; db 17:48 BP 125 / 73; Pulse 147; Resp 15; Pulse Ox 98% on R/A; db 18:00 BP 130 / 69; Pulse 141; Resp 20; Pulse Ox 98% on R/A; db 18:35 BP 125 / 57; Pulse 88; Resp 14; Pulse Ox 99% ; db 18:39 BP 119 / 62; Pulse 90; Resp 14; Pulse Ox 97% on R/A; db 19:44 BP 107 / 89; Pulse 77; Resp 15; Temp 98.6; Pulse Ox 99% on R/A; al5 Hill Coma Score: 18:15 Eye Response: spontaneous(4). Motor Response: obeys commands(6). Verbal Response: norberto oriented(5). Total: 15. ED Course: 16:58 Patient arrived in ED. rs5 17:00 Triage completed. rs5 17:01 Karan Merlos, RN is Primary Nurse. rs5 17:06 Mathtew Alvarez MD is Attending Physician. norberto 17:20 Initial lab(s) drawn, by ED staff, sent to lab. Inserted saline lock: 20 gauge in left db forearm, using aseptic technique. Blood collected. Flushed with 10 mL NS. 17:[address] via stretcher. db 17:42 CT Head C Spine In Process Unspecified. EDMS 17:42 CT Chest Abdomen Pelvis W/O Contrast In Process Unspecified. EDMS 18:05 Patient has correct armband on for positive identification. Placed in gown. Bed in low db position. Call light in reach. Side rails up X2. Client placed on continuous cardiac and pulse oximetry monitoring. NIBP monitoring applied. debit agent on. Pulse ox on. NIBP on. Warm blanket given. Pillow given. 18:21 Charlie West MD is Hospitalizing Provider. norberto 18:24 XRAY Chest (1 view) In Process Unspecified. EDMS 18:43 EKG done, reviewed by Matthew Alvarez MD REPEAT EKG DONE. db 19:43 No provider procedures requiring assistance completed. Patient admitted, IV remains in al5 place. 19:43 Provided Education on: need for admission. Warm blanket given. patient placed in gown, al5 linens and brief cleaned. 19:44 Arm band placed on right wrist. Patient placed in the treatment room, on a stretcher. al5 20:07 Lactate w/ 2H reflex if indic. Sent. al5 20:20 Primary Nurse role handed off by Karan Merlos, LUL al5 20:20 Nurys West, LUL is Primary Nurse. al5 Administered Medications: 17:20 Drug: Acetaminophen PO 1000 mg PO once Route: PO; db 19:33 Follow up: Response: No adverse reaction; Temperature is decreased al5 17:25 Drug: NS 0.9% IV 500 ml IV at bolus continuous Route: IV; Rate: bolus; Site: left db forearm; 19:32 Follow up: Response: No adverse reaction; IV Status: Completed infusion; IV Intake: al5 500ml 17:30 Drug: NS 0.9% IV 1000 ml IV at 1000 ml once; to be given as a bolus over 60 minutes db Route: IV; Rate: 1000 ml; Site: left forearm; 19:33 Follow up: Response: No adverse reaction; IV Status: Completed infusion; IV Intake: al5 1000ml 17:37 Drug: Meropenem IV 1 grams IV at per protocol once; (mix in NS 100 mL) Route: IV; Rate: db per protocol; Site: left forearm; 19:32 Follow up: Response: No adverse reaction; IV Status: Completed infusion; IV Intake: al5 100ml 18:28 Drug: Metoprolol IVP 2.5 mg IVP once; Hold for SBP <100 or HR <60. Route: IVP; Site: left wrist; 18:56 Follow up: Response: No adverse reaction; Cardiac rhythm changed db 18:28 Drug: Metoprolol PO 25 mg PO once Route: PO; db 18:55 Follow up: Response: No adverse reaction; Cardiac rhythm changed db 18:29 Drug: Magnesium Sulfate IVPB 1 grams IVPB once over 1 hrs Route: IVPB; Infused Over: 1 db hrs; Site: left wrist; 19:41 Follow up: Response: No adverse reaction; IV Status: Completed infusion; IV Intake: al5 100ml 18:55 CANCELLED (Physician Discretion): metoprolol2.5 mg IVP once; Hold for SBP <100 or HR db <60. 18:55 CANCELLED (Physician Discretion): metoprolol2.5 mg IVP once; Hold for SBP <100 or HR db <60. 19:40 Drug: Famotidine IVP 20 mg IVP once; dilute with 10 mL 0.9% NaCl; give over 2 minutes al5 Route: IVP; Site: left forearm; 20:19 Follow up: Response: No adverse reaction al5 19:41 Drug: NS 0.9% IV 1000 ml IV at 125 ml/hr continuous Route: IV; Rate: 125 ml/hr; Site: al5 left forearm; 19:41 Follow up: Response: No adverse reaction; IV Status: Infusion continued upon admission al5 19:41 Drug: LevOfloxacin PO 500 mg PO once Route: PO; al5 20:20 Follow up: Response: No adverse reaction al5 Medication: 19:44 VIS not applicable for this client. al5 Intake: 19:32 IV: 100ml; Total: 100ml. al5 19:32 IV: 500ml; Total: 600ml. al5 19:33 IV: 1000ml; Total: 1600ml. al5 19:41 IV: 100ml; Total: 1700ml. al5 Outcome: 18:24 Decision to Hospitalize by Provider. norberto 20:20 Admitted to Med/surg accompanied by tech, via stretcher, room 232, with chart, al5 20:20 Condition: stable 20:20 Instructed on the need for admit, 20:20 Patient left the ED. al5 Signatures: Dispatcher [employer] EDMS Matthew Alvarez MD MD cha Benton, Danielle, RN RN db Karan Merlos RN RN rs5 Nurys West RN RN al5 Corrections: (The following items were deleted from the chart) 17:01 16:58 Chief complaint: EMS states: [facility] toned EMS for high heart rate rs5 in 150's, red tinged urine, and temp of 101 rs5 17:02 16:58 Chief complaint: EMS states: [facility] EMS for high heart rate rs5 in 150's, and temp of 101 rs5 17:34 16:58 Chief complaint: EMS states: [facility] ton[facility] EMS for high heart rate rs5 in 150's, and temp of 101, pt denies chest pain or SOB rs5 18:35 17:37 Reassessment: Patient appears in no apparent distress at this time. Patient db and/or family updated on plan of care and expected duration. Pain level reassessed. Patient is alert, oriented x 3, equal unlabored respirations, skin warm/dry/pink. db 18:41 18:30 BP 125 / 57; Pulse 88bpm; Resp 14bpm; Pulse Ox 99%; db db
[2023-12-06] MEDS ORDERED: MAGNESIUM SULFATE 1 gm IVPB 1 GM/100 ML BAG IV ONE (18:26)
[2023-12-06] MEDS ORDERED: METOPROLOL TARTRATE 5 MG/5 ML INJ IV ONE (18:26)
--- NOTE | 2023-12-06 18:33 | RAD REPORT ---
EXAMINATION: ONE VIEW CHEST XR CLINICAL INDICATION: Male, 83 years old.Cough;Fever TECHNIQUE: 1 View, AP supine, X-ray of the chest was performed. [id number]. COMPARISON: 10/21/2023 FINDINGS: Lungs and pleura: Clear lungs. No effusion. Heart and mediastinum: Normal heart size. Unremarkable mediastinal contours. Osseous structures: No acute abnormality. Tubes/lines: None Other: None. IMPRESSION: No acute intrathoracic abnormality.
--- NOTE | 2023-12-06 18:46 | P.HP ---
Certification for Inpatient Patient admitted to: Inpatient With expected LOS: >2 Midnights Practitioner: I am a practitioner with admitting privileges, knowledge of patient current condition, hospital course, and medical plan of care. Services: Services provided to patient in accordance with Admission requirements found in Title 42 Section 412.3 of the Code of Federal Regulations Patient History Date of Service: 12/07/23 Reason for admission: Fever, palpitation History of Present Illness: 83 yrs old Male Hypothyroidism, BPH status post TURP, moderate pr otein calorie malnutrition, presents with complaints of Fall Injury. The patient fell from an upright position, while walking., occurred just prior to arrival. The patient sustained no obvious injury. Patient denies any loss of consciousness. Denies any palpitation . No fever or chills No sick contacts . No chest pain or shortness of breath. Patient was found to have UTI and is admitted for further management Allergies Penicillins Allergy (Verified 06/10/23 18:02) Itching Home medications list reviewed: Yes Home Medications: Levothyroxine [Synthroid*] 0.88 mg PO DAILY 06/14/23 Ensure Enlive 237 ml PO BID #60 can 06/16/23 Louie [Louie*] 1 pkt PO BID #60 packet 06/16/23 Medihoney [Medihoney Woundcare Gel*] 1 appl TOP DAILY #1 tube 06/16/23 Tamsulosin [Flomax*] 0.4 mg PO BEDTIME #30 cap 06/16/23 Cefpodoxime Proxetil [Vantin] 200 mg PO DAILY 14 Days #14 tab 07/09/23 - Past Medical/Surgical History Diabetic: No Past Medical History: Reviewed- Non-Contributory -: hypothyroidism -: BPH with TURP Past Surgical History: Reviewed- Non-Contributory -: TURP Psychosocial/ Personal History: Lives alone. He states he likes to lie on the floor. Daughter and ex- at bedside. - Social History Smoking Status: Never smoker Alcohol use: No CD- Drugs: No Caffeine use: Yes Review of Systems 10-point ROS is otherwise unremarkable Physical Examination - Vital Signs Temperature: 100.2 F Blood Pressure: 116/58 Pulse: 123 Respirations: 18 Pulse Ox (%): 94 - Physical Exam General: Alert, In no apparent distress, Oriented x3 HEENT: Atraumatic, Normocephalic Neck: Supple, JVD not distended Respiratory: Clear to auscultation bilaterally, Normal air movement Cardiovascular: Regular rate/rhythm, Normal S1 S2 Capillary refill: <2 Seconds Gastrointestinal: Soft and benign, W/out hepatosplenomegaly Musculoskeletal: No clubbing, No swelling Integumentary: No rashes, No tenderness/swelling Neurological: Normal speech, Normal strength at 5/5 x4 extr, Sensation intact, Cranial nerves 3-12 intact, Normal reflexes 2+ Lymphatics: No axilla or inguinal lymphadenopathy - Studies Laboratory Data (last 24 hrs) 12/06/23 12/06/23 12/06/23 17:24 17:24 17:24 WBC 10.50 Hgb 11.1 L Hct 32.8 L Plt Count 189 PT 11.8 INR 1.06 Sodium 139 Potassium 4.7 BUN 74 H Creatinine 3.83 H Glucose 129 H Magnesium 2.4 Total Bilirubin 0.4 AST 33 ALT 58 Alkaline Phosphatase 89 Lipase 55 Microbiology Data (last 24 hrs): 12/06/23 17:24 Throat Group A Streptococcus Rapid Screen - Final 12/06/23 17:24 Nasopharnyx Influenza Type A Antigen Screen - Final 12/06/23 17:24 Nasopharnyx Influenza Type B Antigen Screen - Final Assessment and Plan - Plan Syncope Denies any loss of consciousness CT with chest findings noted No acute events UTI Sepsis due to UTI Started on antibiotics Cultures Change antibiotics as per sensitivity DWIGHT Probably prerenal IV hydration Monitor under telemetry History of obstructive uropathy status post stent placement Electrolytes monitor and replace accordingly Hypertension Antihypertensives titrated Continue home medications and titrate as needed Hypothyroidism Continue home medications and titrate as needed Anemia of chronic disease Monitor H&H closely No overt bleeding at this time GI/DVT prophylaxis Advanced directive full code Discharge Plan: Home Plan to discharge in: 48 Hours - Advance Directives Does patient have a Living Will: No Does patient have a Durable POA for Healthcare: No - Code Status/Comfort Care Code Status: Full Code Time Spent Managing Pts Care (In Minutes): 48
[2023-12-06] MEDS ORDERED: ACETAMINOPHEN 325 MG TABLET PO PRN (18:47)
[2023-12-06] MEDS ORDERED: ONDANSETRON 4 MG/2 ML VIAL IV PRN (18:47)
[2023-12-06] MEDS ORDERED: levoFLOXacin 250 MG TAB ONE (19:36)
[2023-12-06] MEDS ORDERED: FAMOTIDINE 20 MG/2 ML VIAL IV ONE (19:36)
[2023-12-06] MEDS: NA CHLORIDE 0.9% 1,000 ML IV SCH (21:08)
[2023-12-07 07:19] LABS: Absolute Eosinophils 0.1 K/uL (0-0.5); Absolute Lymphocytes (CBC) 0.8 K/uL (0.7-4.9); Absolute Monocytes 1.2 K/uL (0.1-1.3); Basophils % 0.5 % (0-1.3); Eosinophils % 1.6 % (0-4.4); Hematocrit 29.3 % (39.6-49.0); Hemoglobin 9.8 g/dL (13.6-17.9); Lymphocytes % 9.7 % (15.3-44.8); MCH 33.8 pg (27.0-35.0); MCHC 33.4 g/dL (32.0-36.0); MCV 101.2 fL (80-100); MPV 10.6 fL (7.6-11.3); Monocytes % 14.5 % (3.3-12.3); Neutrophils % 73.7 % (41.7-73.7); Platelets 164 thou/uL (152-406); RBC Red Blood Cell Count 2.89 M/uL (4.33-5.43); Red Cell Distribution Width 13.7 % (12.1-15.2)
[2023-12-07 07:24] LABS: Albumin 2.4 g/dL (3.4-5.0); Albumin/Globulin Ratio 0.7 (1.1-1.8); Anion Gap 9.5 mEq/L (5.0-15.0); Bilirubin Total 0.4 mg/dL (0.2-1.0); Globulin 3.6 g/dL (2.3-3.5); Potassium 4.5 mEq/L (3.5-5.1)
[2023-12-07] MEDS: ENOXAPARIN 30 MG/0.3 ML SQ SCH (09:39)
[2023-12-07] MEDS: CEFTRIAXONE 1,000 MG in NA CHLORIDE 0.9% 50 ML IVPB SCH (09:39)
--- NOTE | 2023-12-07 17:21 | P.PN ---
Subjective Date of Service: 12/07/23 Chief Complaint: Fever, palpitation Patient denies any complaint today. He has been afebrile. Patient is tolerating diet. Physical Examination - Vital Signs Temperature: 98.0 F Blood Pressure: 114/58 Pulse: 77 Respirations: 16 Pulse Ox (%): 98 - Studies Laboratory Data (last 24 hrs) 12/06/23 1012/06/23 17:24 17:24 17:24 WBC 10.50 Hgb 11.1 L Hct 32.8 L Plt Count 189 PT 11.8 INR 1.06 Sodium 139 Potassium 4.7 BUN 74 H Creatinine 3.83 H Glucose 129 H Magnesium 2.4 Total Bilirubin 0.4 AST 33 ALT 58 Alkaline Phosphatase 89 Lipase 55 Microbiology Data (last 24 hrs): 12/06/23 17:24 Throat Group A Streptococcus Rapid Screen - Final 12/06/23 17:24 Nasopharnyx Influenza Type A Antigen Screen - Final 12/06/23 17:24 Nasopharnyx Influenza Type B Antigen Screen - Final Assessment And Plan - Plan Physical examination General: Alert and oriented x3, NAD, HEENT: Conjunctiva not pale, anicteric sclera Neck: Supple, no elevated JVD Heart: Heart sounds 1 and 2 normal, regular rhythm, normal rate, no pedal edema Lungs: Clear to auscultation bilaterally, adequate breath sounds bilaterally, no rhonchi or crackles. Abdomen: Soft, nondistended, nontender, normal bowel sounds. Extremities: No tenderness, no deformity Skin: Normal skin turgor, no rash, no nodules or ulcers. Neuro: No focal motor deficit. Normal speech. Psychiatry: Normal mood, no agitation. Assessment and Plan: Syncope Denies any loss of consciousness CT with chest findings noted No acute events. Check orthostatic vitals. Complicated UTI Sepsis due to UTI Acute metabolic encephalopathy Continue IV Rocephin. Follow urine culture. Acute on chronic kidney disease stage III Continue IV hydration Monitor under telemetry History of obstructive uropathy status post stent placement Electrolytes monitor and replace accordingly Hypertension Patient is currently normotensive. Hold home antihypertensives for now Hypothyroidism Continue home dose Synthroid Anemia of chronic disease Drop in hemoglobin is likely dilutional. Monitor H&H closely DVT prophylaxis: Heparin SQ Advanced directive full code
[2023-12-07] MEDS: TAMSULOSIN 0.4 MG SR CAP PO SCH (20:21)
[2023-12-07 20:33] VITALS: BMI 19.3
[2023-12-08] MEDS: LEVOTHYROXINE SOD 0.088 MG TAB PO SCH (05:30)
[2023-12-08] MEDS: FINASTERIDE 5 MG TAB PO SCH (10:08)
--- NOTE | 2023-12-08 12:22 | P.PN ---
Date of Service: 12/08/23 Subjective: feeling better denies n/v/d voiding without issue still feels very weak afebrile ROS: 10 point ROS as noted above, otherwise negative Physical Exam: GEN: AOx3 HEENT: Normal conjunctiva, sclera anicteric, CV: Regular rate and rhythm, no edema Pulm: Nonlabored respirations on room air, clear bilaterally ABD: soft, nontender, nondistended Neuro: Normal speech, normal affect Problem List: Syncope Sepsis secondary to complicated UTI Acute metabolic encephalopathy Hx BPH s/p TURP DWIGHT on CKD3 Hypertension Hypothyroidism Anemia of chronic disease moderate protein calorie malnutrition Syncope Sepsis secondary to complicated UTI Acute metabolic encephalopathy Hx BPH s/p TURP presents to ED after sustaining unwitnessed fall from upright position while walking at halfway. Heart rate reportedly in 150s at the time. +fever of 101 at halfway. Denies any loss of consciousness CT head/spine (12/05): no acute intracranial abnormalities. CT chest (12/05): no definite acute process in lungs. Micronodularity in RUL could reflect mild infection/inflammation but maybe more chronic process. Bilateral ureteral stents in place. No hydro. Severe prostatomegaly. Moderate stool Check orthostatic vitals. 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 Daily labs moderate protein calorie malnutrition encourage supplemental nutrition VTE: Lovenox Code: Full Dispo: back to [place], ~2 days Pending cultures. afebrile > 24 hours Time Spent Managing Pts Care (In Minutes): 41
--- NOTE | 2023-12-08 12:55 | EKG ---
Test Date: 2023-12-06 Test Time: 18:46:32 Clinical Educator: DENI MEASUREMENT RESULTS: Intervals: Rate: 92 TN: 138 QRSD: 88 QT: 338 QTc: 417 [place]: P: 79 TN: 138 QRS: 59 T: 70 INTERPRETIVE STATEMENTS: Normal sinus rhythm Normal ECG Compared to ECG 12/06/2023 17:04:54 Atrial fibrillation no longer present Electronically Signed On 12-08-23 12:51:01 CDT by Cory Kruse
--- NOTE | 2023-12-08 12:56 | EKG ---
Test Date: 2023-12-06 Test Time: 17:04:54 [place] Sewer: JOHN MEASUREMENT RESULTS: Intervals: Rate: 158 ME: QRSD: 80 QT: 266 QTc: 431 [place]: P: ME: QRS: 68 T: 80 INTERPRETIVE STATEMENTS: Atrial fibrillation Abnormal ECG Compared to ECG 10/22/2023 00:36:40 Sinus rhythm no longer present Electronically Signed On 12-08-23 12:51:08 CDT by Cory Kruse
[2023-12-09 05:02] LABS: Absolute Eosinophils 0.3 K/uL (0-0.5); Absolute Lymphocytes (CBC) 0.7 K/uL (0.7-4.9); Absolute Monocytes 0.7 K/uL (0.1-1.3); Absolute Neutrophil 3.4 K/uL (1.8-8.0); Basophils % 0.8 % (0-1.3); Eosinophils % 6.7 % (0-4.4); Hemoglobin 9.1 g/dL (13.6-17.9); Lymphocytes % 14.3 % (15.3-44.8); MCHC 33.7 g/dL (32.0-36.0); MCV 100.8 fL (80-100); MPV 9.8 fL (7.6-11.3); Monocytes % 14.1 % (3.3-12.3); Neutrophils % 64.1 % (41.7-73.7); Nucleated Red Blood Cells % 0.1 % (0-0); Platelets 180 thou/uL (152-406); RBC Red Blood Cell Count 2.68 M/uL (4.33-5.43); Red Cell Distribution Width 13.3 % (12.1-15.2)
[2023-12-09 05:16] LABS: Anion Gap 8.7 mEq/L (5.0-15.0); Magnesium 2.2 mg/dL (1.6-2.4); Potassium 4.7 mEq/L (3.5-5.1)
--- NOTE | 2023-12-09 12:12 | P.PN ---
Date of Service: 12/09/23 Subjective: no acute events overnight denies any worsenign symptoms feeling better each day afebrile ROS: 10 point ROS as noted above, otherwise negative Physical Exam: GEN: AOx3 HEENT: Normal conjunctiva, sclera anicteric, CV: Regular rate and rhythm, no edema Pulm: Nonlabored respirations on room air, clear bilaterally ABD: soft, nontender, nondistended Neuro: Normal speech, normal affect navas placed 11/16 Problem List: Syncope Sepsis secondary to complicated UTI with bacteremia Acute metabolic encephalopathy Hx BPH s/p TURP DWIGHT on CKD3 Hypertension Hypothyroidism Anemia of chronic disease moderate protein calorie malnutrition Syncope Sepsis secondary to complicated UTI with bacteremia Acute metabolic encephalopathy Hx BPH s/p TURP presents to ED after sustaining unwitnessed fall from upright position while walking at [facility]. Heart rate reportedly in 150s at the time. +fever of 101 at [facility]. Denies any loss of consciousness Presented with navas in place; last replaced 11/16 CT head/spine (12/05): no acute intracranial abnormalities. CT chest (12/05): no definite acute process in lungs. Micronodularity in RUL could reflect mild infection/inflammation but maybe more chronic process. Bilateral ureteral stents in place. No hydro. Severe prostatomegaly. Moderate stool Check orthostatic vitals. continue empiric rocephin for now (12/06-) urine cx (12/05): Staph Aureus resistant to Cipro/Levaquin/Penicillin Blood cx (12/05): +GPC in 1/ bottles Follow urine culture and blood cultures ID consulted repeat blood culture today will need 2 weeks IV rocephin continue home flomax, finasteride pain control DWIGHT on CKD3 creatinine 3.83 on admission has hx of obstructive uropathy s/p stent placement IVF dc'd 12/08 continue to monitor renal function Monitor and replete electrolytes as needed improving Hypertension Hold home antihypertensives for now Hypothyroidism Continue home Synthroid Anemia of chronic disease suspect drop in hemoglobin is likely dilutional. Daily labs moderate protein calorie malnutrition encourage supplemental nutrition VTE: Lovenox Code: Full Dispo: back to [place], ~1-2 days Pending cultures/ID recs. afebrile > 24 hours midline ordered 12/08, and IV antibiotics order sent to [facility]ETTA daughter updated over phone Time Spent Managing Pts Care (In Minutes): 51
--- NOTE | 2023-12-09 21:54 | CON ---
History Of Present Illness: This is an 83-year-old male with significant past medical history of hyp othyroidism; benign prostatic hypertrophy, status post TURP; and moderate protein-calorie malnourishm ent, coming in with complaint of fall. The patient's urine culture grew Staph aureus more than 100,0 00 colonies. His blood cultures are also growing gram-positive cocci in clusters. He is currently b eing treated with Rocephin. See MAR for other medications. Past Medical History: As per HPI. Medications: Rocephin. See MAR for other medications. Allergies: PENICILLIN. Social History: Nonsmoker. Nondrinker. Family History: Noncontributory. Review of Systems: Ten-point review was performed. Physical Examination: General: This is an 83-year-old male, lying in bed, not in any acute cardiopulmonary distress. Vital Signs: Temperature 98.2, pulse 78, respirations 16, blood pressure 134/72. HEENT: Unremarkable. Neck: Supple. Lungs: Basal crackles. Heart: S1, S2. Regular. Abdomen: Soft, nontender. Bowel sounds present. Extremities: No edema. Laboratory Data: WBC 5.2, hemoglobin 9.1, platelets are 180. Chemistry shows BUN of 56, creatinine of 3. Urine culture is growing MSSA. Blood cultures are also growing gram-positive cocci in cluster . Assessment/plan: 1.Bacteremia and urinary tract infection secondary to gram-positive cocci in cluster and Staphylococ cus aureus. We will recommend to continue Rocephin as the patient already has renal insufficiency an d responding well to the antibiotic. 2.Anemia of chronic disease. Continue antibiotic. Monitor signs and symptoms with WBC and fever trend. We will follow the patien t as needed. Thank you, Dr. Garcia, for consult. NF/MODL Voice ID: [id number] Report ID: [id number]
[2023-12-10 05:03] LABS: Absolute Eosinophils 0.4 K/uL (0-0.5); Absolute Lymphocytes (CBC) 0.8 K/uL (0.7-4.9); Absolute Monocytes 0.6 K/uL (0.1-1.3); Absolute Neutrophil 2.9 K/uL (1.8-8.0); Eosinophils % 7.9 % (0-4.4); Hematocrit 27.9 % (39.6-49.0); Hemoglobin 9.2 g/dL (13.6-17.9); Lymphocytes % 17.9 % (15.3-44.8); MCH 33.3 pg (27.0-35.0); MCHC 33.1 g/dL (32.0-36.0); MCV 100.9 fL (80-100); Neutrophils % 61.2 % (41.7-73.7); Platelets 185 thou/uL (152-406); RBC Red Blood Cell Count 2.77 M/uL (4.33-5.43); Red Cell Distribution Width 13.1 % (12.1-15.2)
[2023-12-10 05:23] LABS: Anion Gap 7.9 mEq/L (5.0-15.0); Magnesium 2.1 mg/dL (1.6-2.4); Potassium 4.9 mEq/L (3.5-5.1)
--- NOTE | 2023-12-10 11:28 | P.PN ---
Date of Service: 12/10/23 Subjective: no acute events overnight doing well tolerating diet urine remains clear ROS: 10 point ROS as noted above, otherwise negative Physical Exam: GEN: AOx3 HEENT: Normal conjunctiva, sclera anicteric, CV: Regular rate and rhythm, no edema Pulm: Nonlabored respirations on room air, clear bilaterally ABD: soft, nontender, nondistended Neuro: Normal speech, normal affect navas placed 11/16 Problem List: Syncope Sepsis secondary to complicated UTI with bacteremia Acute metabolic encephalopathy Hx BPH s/p TURP DWIGHT on CKD3 Hypertension Hypothyroidism Anemia of chronic disease moderate protein calorie malnutrition Syncope Sepsis secondary to complicated UTI with bacteremia Acute metabolic encephalopathy Hx BPH s/p TURP presents to ED after sustaining unwitnessed fall from upright position while walking at detention. Heart rate reportedly in 150s at the time. +fever of 101 at detention. Denies any loss of consciousness Presented with navas in place; last replaced 11/16 CT head/spine (12/05): no acute intracranial abnormalities. CT chest (12/05): no definite acute process in lungs. Micronodularity in RUL could reflect mild infection/inflammation but maybe more chronic process. Bilateral ureteral stents in place. No hydro. Severe prostatomegaly. Moderate stool Check orthostatic vitals. continue empiric rocephin for now (12/06-) urine cx (12/05): Staph Aureus resistant to Cipro/Levaquin/Penicillin Blood cx (12/05): +GPC in 1/4 bottles repeat blood cx (12/08): pending ID consulted - recommending 2 weeks IV antibiotics midline placed 12/08 for prolonged IV antibiotics continue home flomax, finasteride pain control DWIGHT on CKD3 creatinine 3.83 on admission has hx of obstructive uropathy s/p stent placement IVF dc'd 12/08 continue to monitor renal function Monitor and replete electrolytes as needed improving Hypertension Hold home antihypertensives for now Hypothyroidism Continue home Synthroid Anemia of chronic disease suspect drop in hemoglobin is likely dilutional. Daily labs - hgb stable. moderate protein calorie malnutrition encourage supplemental nutrition VTE: Lovenox Code: Full Dispo: back to [place], ~1-2 days midline placed 12/08 Pending blood cultures, outpatient IV abx setup daughter updated over phone yesterday Time Spent Managing Pts Care (In Minutes): 41
[2023-12-10 21:03] VITALS: TEMP 97.6
[2023-12-11 03:32] VITALS: O2SAT 95
[2023-12-11 04:26] VITALS: BP 123/54
[2023-12-11 07:01] LABS: Anion Gap 8.9 mEq/L (5.0-15.0); Magnesium 2.1 mg/dL (1.6-2.4); Potassium 4.9 mEq/L (3.5-5.1)
--- NOTE | 2023-12-11 07:25 | P.DS ---
Admission Date: 12/06/23 Discharge Date: 12/11/23 Disposition: TRANSFER TO PRISON Discharge Condition: GOOD Reason for Admission: Fever, palpitation Consultations: Infectious Disease - Dr. De La Vega Brief History of Present Illness: 83 yo M, PMH: Hypothyroidism, BPH status post TURP, moderate protein calorie malnutrition, Patient presents with complaints of Fall Injury. The patient fell from an upri ght position, while walking., occurred just prior to arrival. The patient sustained no obvious injury. Patient denies any loss of consciousness. Denies any palpitation . No fever or chills. No sick contacts. No chest pain or shortness of breath. Patient was found to have UTI and is admitted for further management. Hospital Course: Problem List: Syncope Sepsis secondary to complicated UTI with Staph Aureus bacteremia Acute metabolic encephalopathy, improved Hx BPH s/p TURP DWIGHT on CKD3 Hypertension Hypothyroidism Anemia of chronic disease moderate protein calorie malnutrition Physician discharge instructions: Patient presented to ED after having unwitnessed fall at intermediate associated with 101 fever secondary to UTI complicated by Staph Aureus bacteremia resistant to Penicillin/levofloxacin/ciprofloxacin. CT head, CT chest were both negative for any acute findings. CT chest did note severe prostatomegaly, bilateral ureteral stents. Renal function was similar / better compared to previous ER/hospitalizations. Cr: 3.8, and on discharge: 3.0 Urine culture grew Staph Aureus (MSSA). Blood cultures also came back positive for Staph Aureus (MSSA) in 2/4 bottles. Repeat blood cultures have been without growth since 12/08. He received IV Rocephin while hospitalized and had improvement of his symptoms. Dr. De La Vega (Infectious disease) recommended patient complete 2 weeks total of IV rocephin and to continue to follow up on repeat blood culture on 12/08. If were to grow staph again, to extend antibiotics. Patient had midline placed for antibiotics on 12/08. Patient is to complete 9 more days of IV rocephin for total of 2 weeks antibiotic treatment (End date: 12/20/23) Patient was feeling better, afebrile > 72 hours without leukocytosis, and was deemed stable for discharge. Bilateral ureteral stents and navas since 06/2023 do increase risk of infection. Due to hospitalizations and scheduling, has not been able to follow up with Urology, however, daughter states they do have an appointment for next week. Medications: Rocephin 1gm daily for 9 more day (end Date: 12/20/23) resume previous medications Follow up: PCP 3-5 days Urology as scheduled in the next week Please call to schedule / confirm appointments Physical Exam: GEN: awake, NAD, AOx3 HEENT: Normal conjunctiva, sclera anicteric CV: Regular rate and rhythm, no edema Pulm: Nonlabored respirations on room air, clear bilaterally ABD: soft, nontender, nondistended Neuro: Normal speech, normal affect Vital Signs/Physical Exam: Temp Pulse Resp BP Pulse Ox 97.6 F 82 16 123/54 L 98 12/11/23 04:00 12/11/23 04:00 12/11/23 04:00 12/11/23 04:00 12/11/23 04:00 Laboratory Data at Discharge: WBC 4.70 thou/uL (4.3-10.9) 12/10/23 04:45 Hgb 9.2 g/dL (13.6-17.9) L 12/10/23 04:45 Hct 27.9 % (39.6-49.0) L 12/10/23 04:45 Plt Count 185 thou/uL (152-406) 12/10/23 04:45 PT 11.8 SECONDS (9.4-12.5) 12/06/23 17:24 INR 1.06 12/06/23 17:24 Sodium 142 mEq/L (136-145) 12/11/23 06:25 Potassium 4.9 mEq/L (3.5-5.1) 12/11/23 06:25 BUN 48 mg/dL (7-18) H 12/11/23 06:25 Creatinine 3.04 mg/dL (0.70-1.30) H 12/11/23 06:25 Glucose 77 mg/dL (74-106) 12/11/23 06:25 Magnesium 2.1 mg/dL (1.6-2.4) 12/11/23 06:25 Total Bilirubin 0.4 mg/dL (0.2-1.0) 12/07/23 06:46 AST 21 U/L (15-37) 12/07/23 06:46 ALT 40 U/L (16-61) 12/07/23 06:46 Alkaline Phosphatase 66 U/L (45-117) D 12/07/23 06:46 Lipase 55 U/L (13-75) 12/06/23 17:24 Home Medications: Levothyroxine [Synthroid*] 0.88 mg PO DAILY 06/14/23 Ensure Enlive 237 ml PO BID #60 can 06/16/23 Louie [Louie*] 1 pkt PO BID #60 packet 06/16/23 Medihoney [Medihoney Woundcare Gel*] 1 appl TOP DAILY #1 tube 06/16/23 Tamsulosin [Flomax*] 0.4 mg PO BEDTIME #30 cap 06/16/23 Cefpodoxime Proxetil [Vantin] 200 mg PO DAILY 14 Days #14 tab 07/09/23 Cranberry Fruit Concentrate [Urinary Health] DAILY 12/07/23 Ferrous Sulfate TID 12/07/23 Finasteride DAILY 12/07/23 Levothyroxine Sodium DAILY 12/07/23 Mirtazapine BEDTIME 12/07/23 Ceftriaxone [Rocephin] 1,000 mg IV DAILY 9 Days #9 vial 12/11/23 New Medications: Ceftriaxone [Rocephin] 1,000 mg IV DAILY 9 Days #9 vial Physician Discharge Instructions: Physician discharge instructions: Patient presented to ED after having unwitnessed fall at intermediate associated with 101 fever secondary to UTI complicated by Staph Aureus bacteremia resistant to Penicillin/levofloxacin/ciprofloxacin. CT head, CT chest were both negative for any acute findings. CT chest did note severe prostatomegaly, bilateral ureteral stents. Renal function was similar / better compared to previous ER/hospitalizations. Cr: 3.8, and on discharge: 3.0 Urine culture grew Staph Aureus (MSSA). Blood cultures also came back positive for Staph Aureus (MSSA) in 2/4 bottles. Repeat blood cultures have been without growth since 12/08. He received IV Rocephin while hospitalized and had improvement of his symptoms. Dr. De La Vega (Infectious disease) recommended patient complete 2 weeks total of IV rocephin and to continue to follow up on repeat blood culture on 12/08. If were to grow staph again, to extend antibiotics. Patient had midline placed for antibiotics on 12/08. Patient is to complete 9 more days of IV rocephin for total of 2 weeks antibiotic treatment (End date: 12/20/23) Patient was feeling better, afebrile > 72 hours without leukocytosis, and was deemed stable for discharge. Bilateral ureteral stents and navas since 06/2023 do increase risk of infection. Due to hospitalizations and scheduling, has not been able to follow up with [facility], however, daughter states they do have an appointment for next week. Medications: Rocephin 1gm daily for 9 more day (end Date: 12/20/23) resume previous medications Follow up: PCP 3-5 days Urology as scheduled in the next week Please call to schedule / confirm appointments Followup: Khari Caraballo MD [Primary Care Provider] - Time spent managing pt's care (in minutes): 45
== END 2023-12-11 10:05 | DRG 698 ==
LOC: ER 16:54 → ERHOLD 18:47 → 2ND 19:36
PROVIDERS: ADMIT Family Medicine; ATTEND Hospitalist
PROC: 02HV33Z Insertion of Infusion Device into Superior Vena Cava, Percutaneous Approach (ICD-10-PCS; principal; 2023-12-09)
DX: T83.018A Breakdown (mechanical) of other urinary catheter, initial encounter (principal); A41.01 Sepsis due to Methicillin susceptible Staphylococcus aureus; R65.20 Severe sepsis without septic shock; G93.41 Metabolic encephalopathy; I48.19 Other persistent atrial fibrillation; N39.0 Urinary tract infection, site not specified; Z68.1 Body mass index [BMI] 19.9 or less, adult; E44.0 Moderate protein-calorie malnutrition; N17.9 Acute kidney failure, unspecified; Z16.29 Resistance to other single specified antibiotic; I12.9 Hypertensive chronic kidney disease with stage 1 through stage 4 chronic kidney disease, or unspecified chronic kidney disease; N18.30 Chronic kidney disease, stage 3 unspecified; D63.1 Anemia in chronic kidney disease; E03.9 Hypothyroidism, unspecified; N40.0 Benign prostatic hyperplasia without lower urinary tract symptoms; Z88.0 Allergy status to penicillin; Z60.2 Problems related to living alone; Z11.52 Encounter for screening for COVID-19; Z79.01 Long term (current) use of anticoagulants; Z79.890 Hormone replacement therapy; Z79.899 Other long term (current) drug therapy; W18.30XA Fall on same level, unspecified, initial encounter; Y93.01 Activity, walking, marching and hiking; Y92.9 Unspecified place or not applicable; Y99.9 Unspecified external cause status; Y84.8 Other medical procedures as the cause of abnormal reaction of the patient, or of later complication, without mention of misadventure at the time of the procedure
CPT/HCPCS: 36415; 70450; 71045; 71250; 72125; 74176; 80048; 80053; 80076; 81001; 83605; 83690; 83735; 83880; 84484; 85025; 85610; 87040; 87070; 87077; 87081; 87086; 87088; 87186; 87205; 87804; 87811; 93005; 94760; 99285; J0696; J1650; J2185; J3475; J7030; J7040

== ENCOUNTER 2024-01-12 07:23 | Emergency (ER) | payer OTHER ==
--- NOTE | 2024-01-12 09:21 | ER ---
Nurse's Notes [facility] Name: Enzo Person Age: 83 yrs Sex: Male : 1940 Arrival Date: 01/12/2024 Time: 07:23 Bed 15 Private MD: Diagnosis: Displacement of urinary (indwelling) catheter Presentation: 01/11 07:26 Chief complaint: EMS states: From [facility], staff was unable to get ph Shell catheter in this morning. Coronavirus screen: Vaccine status: Patient reports receiving the 2nd dose of the covid vaccine. Ebola Screen: No symptoms or risks identified at this time. Initial Sepsis Screen: Does the patient meet any 2 criteria? No. Patient's initial sepsis screen is negative. Does the patient have a suspected source of infection? No. Patient's initial sepsis screen is negative. Risk Assessment: Do you want to hurt yourself or someone else? Patient reports no desire to harm self or others. Onset of symptoms was January 12, 2024. : Method Of Arrival: EMS: [facility] 07: Acuity: HUMER[facility] 4 ph Triage Assessment: General: Appears in no apparent distress. comfortable, Behavior is calm, cooperative. ph Pain: Denies pain. Neuro: Level of Consciousness is awake, alert, obeys commands, Oriented to person, place, time, situation. Cardiovascular: Capillary refill < 3 seconds in bilateral fingers Patient's skin is warm and dry. Respiratory: Airway is patent Respiratory effort is even, unlabored. Derm: Skin is pink, warm \T\ dry. Historical: - Allergies: 07:28 PENICILLINS; ph - PMHx: 07:28 CKD; UTI; Anemia; Hypothyroidism; ph - Immunization history:: Adult Immunizations unknown. - Infectious Disease History:: Denies. - Social history:: Smoking status: unknown. - Family history:: not pertinent. - Hospitalizations: : No recent hospitalization is reported. Screenin: [facility] ED Fall Risk Assessment (Adult) History of falling in the last 3 months, ph including since admission No falls in past 3 months (0 pts) Confusion or Disorientation No (0 pts) Intoxicated or Sedated No (0 pts) Impaired Gait No (0 pts) Mobility Assist Device Used Yes (1 pt) Altered Elimination Yes (1 pt) Score/Fall Risk Level 0 - 2 = Low Risk Oriented to surroundings, Maintained a safe environment, Hourly rounding (assess needs \T\ fall precautionary measures) done. Abuse screen: Denies threats or abuse. Denies injuries from another. Nutritional screening: No deficits noted. Tuberculosis screening: No symptoms or risk factors identified. Assessment: 08:00 General: SEE TRIAGE ASSESSMENT. ph 08:13 Reassessment: Patient appears in no apparent distress at this time. Patient and/or ph family updated on plan of care and expected duration. Pain level reassessed. Patient is alert, oriented x 3, equal unlabored respirations, skin warm/dry/pink. 08:30 Reassessment: Bright red bloody urine noted when Shell inserted, bladder irrigated w/ ph 250 mL saline, some small clots noted but became clear quickly. 09:23 Reassessment: Pt placed up for d/c, called report to LUL Draper, states that she will ph arrange for transport. 10:08 Reassessment: Patient appears in no apparent distress at this time. Patient and/or ph family updated on plan of care and expected duration. Pain level reassessed. Patient is alert, oriented x 3, equal unlabored respirations, skin warm/dry/pink. Vital Signs: 07:26 BP 138 / 61; Pulse 83; Resp 18; Temp 97.8; Pulse Ox 100% on R/A; Weight 52.16 kg; ph Height 5 ft. 7 in. ; Pain 0/10; 09:21 BP 128 / 68; Pulse 81; Resp 18; Temp 97.5; Pulse Ox 98% on R/A; ph 07:26 Body Mass Index 18.01 (52.16 kg, 170.18 cm) ph 07:26 Pain Scale: Adult ph ED Course: 07:25 Patient arrived in ED. ph 07:25 Henri Garcia MD is Attending Physician. rn 07:28 Triage completed. ph 07:31 Arm band placed on Patient placed in an exam room, in a wheelchair. ph 07:32 Patient has correct armband on for positive identification. Bed in low position. Call ph light in reach. Side rails up X2. Pulse ox on. NIBP on. Door closed. Noise minimized. Warm blanket given. 07:42 Venus Walton RN is Primary Nurse. ph 08:14 Shell cath inserted, using sterile technique, 16 Fr., by nm, balloon inflated, to ph gravity drainage, returned bloody urine. Patient tolerated well. 09:21 Bladder irrigated via Shell with 250 ml normal saline returned blood tinged w/ small ph clots Patient tolerated well. 09:22 No provider procedures requiring assistance completed. Patient did not have IV access ph during this emergency room visit. Administered Medications: No medications were administered Medication: 07:32 VIS not applicable for this client. ph Outcome: : Discharge ordered by . rn 10:08 Discharged to long-term. Report called to LUL Draper ph 10:08 Condition: good 10:08 Discharge instructions given to patient, long-term, Instructed on discharge instructions, follow up and referral plans. Demonstrated understanding of instructions, follow-up care, 10:08 Patient left the ED. ph Signatures: Henri Garcia MD MD rn WaltonVenus RN RN
--- NOTE | 2024-01-12 09:21 | EDPHYS ---
Physician Documentation [facility] Name: Enzo Person Age: 83 yrs Sex: Male : 1940 Arrival Date: 01/12/2024 Time: 07:23 Bed 15 Private MD: ED Physician Henri Garcia HPI: 01/11 09:18 This 83 yrs old Male presents to ER via EMS with complaints of Problem With Urinary rn Catheter. 09:18 The patient presents with. The patient has experienced similar episodes in the past. rn The patient has not recently seen a physician. Patient presents after home nurse pulled out his Navas catheter to replace and could not replace the catheter successfully. Patient has no other concerns or complaints at this time. No fever. No abdominal pain.. Historical: - Allergies: : PENICILLINS; ph - PMHx: :28 CKD; UTI; Anemia; Hypothyroidism; ph - Immunization history:: Adult Immunizations unknown. - Infectious Disease History:: Denies. - Social history:: Smoking status: unknown. - Family history:: not pertinent. - Hospitalizations: : No recent hospitalization is reported. ROS: 09:18 Constitutional: Negative for fever, chills, and weight loss, Abdomen/GI: Negative for rn abdominal pain, nausea, vomiting, diarrhea, and constipation, : Negative for injury, bleeding, discharge, and swelling, Exam: 09:18 Constitutional: This is a well developed, well nourished patient who is awake, alert, rn and in no acute distress. Abdomen/GI: Soft, non-tender Vital Signs: 07:26 BP 138 / 61; Pulse 83; Resp 18; Temp 97.8; Pulse Ox 100% on R/A; Weight 52.16 kg; ph Height 5 ft. 7 in. ; Pain 0/10; 09:21 BP 128 / 68; Pulse 81; Resp 18; Temp 97.5; Pulse Ox 98% on R/A; ph 07:26 Body Mass Index 18.01 (52.16 kg, 170.18 cm) ph 07:26 Pain Scale: Adult ph MDM: 07:25 Medical Screening Exam initiated rn 09:18 Differential diagnosis: need for navas replacement. Data reviewed: vital signs, nurses rn notes. Counseling: I had a detailed discussion with the patient and/or guardian regarding the historical points, exam findings, and any diagnostic results supporting the discharge/admit diagnosis, the need for outpatient follow up, to return to the emergency department if symptoms worsen or persist or if there are any questions or concerns that arise at home. Special discussion: I discussed with the patient/guardian in detail that at this point there is no indication for admission to the hospital. It is understood, however, that if the symptoms persist or worsen the patient needs to return immediately for re-evaluation. 09:21 ED course: Navas catheter replaced, initially bled a little bit but irrigated and now rn clear.. 01/11 07:26 Order name: Navas; Complete Time: 08:13 rn Administered Medications: No medications were administered Disposition Summary: 01/12/24 09:21 Discharge Ordered Notes: Location: Home rn Problem: new rn Symptoms: have improved rn Condition: Stable rn Diagnosis - Displacement of urinary (indwelling) catheter rn Followup: rn - With: Private Physician - When: As needed - Reason: Recheck today's complaints, Re-evaluation by your physician Discharge Instructions: - Discharge Summary Sheet rn - Indwelling Urinary Catheter Care, Adult rn Forms: - Medication Reconciliation Form rn - Antibiotic turner off - Prescription Opioid Use rn - Patient Portal Instructions rn - Leadership Thank You Letter rn Signatures: Henri Garcia MD MD rn Hall, Patricia, RN RN ph
[2024-01-12 13:39] VITALS: BP 128/68; TEMP 97.5; O2SAT 98
== END 2024-01-12 10:08 | disposition home or self-care (01) ==
LOC: ER 07:23
DX: T83.028A Displacement of other urinary catheter, initial encounter (principal)
CPT/HCPCS: 51700; 51702; 99284

== ENCOUNTER 2024-01-29 06:39 | Inpatient (IN) | payer OTHER ==
[2024-01-29] MEDS ORDERED: dilTIAZem HCL 25 MG/5 ML VIAL IV ONE (06:56)
[2024-01-29] MEDS ORDERED: NA CHLORIDE 0.9% 250 ML ONE (07:45)
[2024-01-29] MEDS ORDERED: VANCOMYCIN 1 GM/VIAL ONE (07:45)
[2024-01-29] MEDS ORDERED: ALBUMIN HUMAN 25% 100 ML IV ONE (07:45)
[2024-01-29] MEDS ORDERED: CEFTRIAXONE 1000 MG/VIAL ONE (07:45)
--- NOTE | 2024-01-29 07:48 | RAD REPORT ---
EXAMINATION: CT HEAD WITHOUT CONTRAST CT CERVICAL SPINE WITHOUT CONTRAST CLINICAL INDICATION: Head and neck injury status post fall. Head and neck pain TECHNIQUE: Axial CT images from the skull base to the vertex without intravenous contrast. Axial CT i mages through the cervical spine were obtained without intravenous contrast. Sagittal and coronal reformatted images were created from the data set. Coronal and sagittal reformatted images were creat ed from the data set. One or more of the following dose reduction techniques were used: Automated exposure control, adjustment of the mA and/or kV according to patient size, and/or iterative reconstr uction. Unless otherwise specified, incidental findings do not require dedicated imaging follow-up. [id number]. Comparison: December 2023 FINDINGS: An intracranial bleed is not seen. Ventricles are normal in caliber. No significant hypodensity within the brain. Cerebral atrophy. No extra-axial fluid collection. No fluid within the sinuses/mastoids No fracture or dislocation is seen involving the cervical spine. IMPRESSION: No acute intracranial abnormality noted A cervical fracture is not seen. 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
--- NOTE | 2024-01-29 07:56 | RAD REPORT ---
EXAM: CT CHEST, ABDOMEN AND PELVIS WITHOUT CONTRAST CLINICAL INDICATION: Chest and abdominal pain status post fall TECHNIQUE: CT chest, abdomen and pelvis was performed, without IV contrast, as per department protoco l. Axial, sagittal and coronal reconstructions were obtained. One or more of the following dose reduction techniques were used: Automated exposure control, adjustment of the mA and/or kV according to the patient size, and/or iterative reconstruction. Unless otherwise specified, incidental findings do not require dedicated imaging follow-up. The lack of IV and oral contrast limits evaluation of the mediastinum, mai, vessels, organs and john l. COMPARISON: December 2023 FINDINGS: A pulmonary contusion is not seen. Worsening in mild to moderate right middle and right lower lobe re ticular nodular opacities. No mediastinal hematoma. Minimal bilateral pleural effusions. No pericardial effusion. Liver, spleen, pancreas, adrenals kidneys and bladder do not demonstrate a traumatic injury. Severe bilateral hydronephrosis and hydroureter which has worsened since the prior exam. Bilateral ur eteral stents in place. A Shell catheter has the balloon within the prosthetic urethra. The bladder is distended. Marked pros tatic enlargement. There is no evidence of diverticulitis Degenerative changes L4 and L5. IMPRESSION: No acute traumatic injury visualized. Mild to moderate reticular nodular opacities right lung may represent an atypical infection. Severe bilateral hydronephrosis and hydroureter which has worsened. Bilateral ureteral stents in plac e A Shell catheter has the balloon within the prosthetic urethra. The bladder is distended. Marked pros tatic enlargement.
--- NOTE | 2024-01-29 08:00 | RAD REPORT ---
Procedure: Chest Single View HISTORY: Chest pain COMPARISON: November 2023 FINDINGS: Mild to moderate reticular nodular opacities right middle and right lower lobes Left lung appears clear of acute infiltrate. No significant pleural effusion noted. The heart is mildly enlarged. IMPRESSION: Mild to moderate reticular nodular opacities right lung probably atypical infection
[2024-01-29 08:03] LABS: Sqamous Epithelial None Seen /HPF (None Seen); Urine Bacteria 20-50 /HPF (<20); Urine Bilirubin NEGATIVE (Negative); Urine Blood 3+ (OVER) (Negative); Urine Clarity Extremely Turbid (Clear); Urine Color Dark-Brown (Yellow); Urine Culture Reflex Order REFLEXED; Urine Glucose NEGATIVE (Negative); Urine Ketones NEGATIVE (Negative); Urine Micro Reflex YN NO BILL MICROSCOPIC; Urine Nitrite NEGATIVE (Negative); Urine Protein 3+ (Negative); Urine RBC >50 /HPF (None Seen); Urine Urobilinogen Normal (Normal); Urine WBC >50 /HPF (<5); Urine WBC Clump Rare /HPF (None Seen); Urine pH 6.5 (5.0-7.0)
[2024-01-29 08:16] LABS: Absolute Lymphocytes (CBC) 0.2 K/uL (0.7-4.9); Absolute Monocytes 0.7 K/uL (0.1-1.3); Absolute Neutrophil 16.8 K/uL (1.8-8.0); Basophils % 0.2 % (0-1.3); Hematocrit 34.1 % (39.6-49.0); Hemoglobin 11.4 g/dL (13.6-17.9); Lymphocytes % 1.2 % (15.3-44.8); MCH 33.1 pg (27.0-35.0); MCHC 33.5 g/dL (32.0-36.0); MCV 98.8 fL (80-100); MPV 11.2 fL (7.6-11.3); Monocytes % 3.7 % (3.3-12.3); Neutrophils % 94.9 % (41.7-73.7); Platelets 227 thou/uL (152-406); RBC Red Blood Cell Count 3.45 M/uL (4.33-5.43); Red Cell Distribution Width 14.2 % (12.1-15.2)
[2024-01-29 08:17] LABS: PT Prothrombin Time 12.5 SECONDS (9.4-12.5); Protime INR 1.12
[2024-01-29 08:38] LABS: Albumin 2.7 g/dL (3.4-5.0); Albumin/Globulin Ratio 0.6 (1.1-1.8); Anion Gap 17.7 mEq/L (5.0-15.0); Bilirubin Direct 0.2 mg/dL (0-0.2); Bilirubin Indirect, Calculated 0.4 mg/dL (0.2-0.8); Bilirubin Total 0.6 mg/dL (0.2-1.0); Globulin 4.5 g/dL (2.3-3.5); Magnesium 2.7 mg/dL (1.6-2.4); Potassium 5.7 mEq/L (3.5-5.1); Protein, Total 7.2 g/dL (6.4-8.2)
[2024-01-29 08:42] LABS: Thyroid Stimulating Hormone 2.58 uIU/mL (0.358-3.740)
[2024-01-29 08:44] LABS: Troponin High Sensitivity 117.5 pg/mL (<58.9)
[2024-01-29] MEDS ORDERED: NA CHLORIDE 0.9% 1,000 ML ONE (08:50)
--- NOTE | 2024-01-29 08:50 | ER ---
Nurse's Notes [facility] Name: Enzo Person Age: 83 yrs Sex: Male : 1940 Arrival Date: 01/29/2024 Time: 06:39 Bed 14 Private MD: Diagnosis: Fall, pneumonia, sepsis Presentation: 01/28 07:05 Chief complaint: EMS states: PER EMS PT WAS AT PRISON AND STOOD UP TO GO TO br2 BATHROOM AND FELL BACKWARDS HITTING HEAD ON THE FLOOR, UNKNOWN LOC, PT DENIES PAIN ON ARRIVAL TO ER. Coronavirus screen: Client denies travel out of the [place] in the last 14 days. Ebola Screen: Patient denies travel to an Ebola-affected area in the 21 days before illness onset. Initial Sepsis Screen: Does the patient meet any 2 criteria? HR > 90 bpm. Does the patient have a suspected source of infection? No. Patient's initial sepsis screen is negative. Risk Assessment: Do you want to hurt yourself or someone else? Patient reports no desire to harm self or others. Onset of symptoms was January 29, 2024. 07:05 Method Of Arrival: EMS: [facility] br2 07:05 Acuity: HUMERA 3 br2 Historical: - Allergies: 07:08 PENICILLINS; br2 - PMHx: 07:24 Anemia; CKD; Hypothyroidism; UTI; benign prostatic hyperplasia (UTI); kc6 - Immunization history:: Adult Immunizations not up to date. - Infectious Disease History:: Denies. - Social history:: Smoking status: Patient denies any tobacco usage or history of. - Family history:: not pertinent. Screenin:00 [facility] ED Fall Risk Assessment (Adult) History of falling in the last 3 months, kc6 including since admission Yes- single mechanical fall (1 pt) Confusion or Disorientation No (0 pts) Intoxicated or Sedated No (0 pts) Impaired Gait Yes (1 pt) Mobility Assist Device Used Yes (1 pt) Altered Elimination Yes (1 pt) Score/Fall Risk Level 3 or more points = High Risk Oriented to surroundings, Maintained a safe environment, Educated pt \T\ family on fall prevention, incl call for assistance when getting out of bed. Abuse screen: Denies threats or abuse. Denies injuries from another. Nutritional screening: No deficits noted. Tuberculosis screening: No symptoms or risk factors identified. Assessment: 07:10 General: Appears in no apparent distress. comfortable, well groomed, well developed, kc6 Behavior is calm, cooperative, appropriate for age. Pain: Denies pain. Neuro: Level of Consciousness is awake, alert, obeys commands, Oriented to person, place, time, situation, Appropriate for age. Cardiovascular: Denies chest pain, shortness of breath, Capillary refill < 3 seconds Rhythm is sinus tachycardia. Respiratory: Airway is patent Trachea midline Respiratory effort is even, unlabored, Respiratory pattern is regular, symmetrical. GI: No signs and/or symptoms were reported involving the gastrointestinal system. : No signs and/or symptoms were reported regarding the genitourinary system. Navas in place to gravity drainage clamped Urine is cloudy. EENT: No signs and/or symptoms were reported regarding the EENT system. Derm: No signs and/or symptoms reported regarding the dermatologic system. Skin is intact, is fragile, is thin, with poor turgor Skin is pink, warm \T\ dry. Musculoskeletal: No signs and/or symptoms reported regarding the musculoskeletal system. Circulation, motion, and sensation intact. Capillary refill < 3 seconds, Range of motion: intact in all extremities. 08:49 Reassessment: Patient appears in no apparent distress at this time. No changes from kc6 previously documented assessment. Patient and/or family updated on plan of care and expected duration. Pain level reassessed. Patient is alert, oriented x 3, equal unlabored respirations, skin warm/dry/pink. 09:43 Reassessment: Patient appears in no apparent distress at this time. No changes from kc6 previously documented assessment. Patient and/or family updated on plan of care and expected duration. Pain level reassessed. Patient is alert, oriented x 3, equal unlabored respirations, skin warm/dry/pink. 10:08 Reassessment: Patient appears in no apparent distress at this time. tm6 11:51 Reassessment: report faxed to 2nd, called x2, no answer. tm6 13:11 Reassessment: report to ICU attempted. ICU stated they were not able to take report at tm6 this time due to a transfer and receiving another patient. 14:30 Reassessment: report given to Pau MCCARTY in ICU. tm6 Vital Signs: 07:05 BP 109 / 66; Pulse 155; Resp 14; Temp 97.2(TE); Pulse Ox 96% on R/A; Weight 53.98 kg; br2 Height 5 ft. 7 in. ; Pain 0/10; 07:24 BP 114 / 51; Pulse 105; Resp 17 S; Pulse Ox 100% on R/A; Pain 0/10; kc6 08:16 BP 96 / 49; Pulse 108; Resp 18 S; Pulse Ox 98% on R/A; kc6 08:49 BP 112 / 80; Pulse 94; Resp 17 S; Pulse Ox 100% on R/A; kc6 09:44 BP 108 / 51; Pulse 90; Resp 18 S; Pulse Ox 98% on R/A; kc6 10:08 BP 101 / 50; Pulse 84; Pulse Ox 97% on R/A; MAP 63 mmHg; tm6 07:05 Body Mass Index 18.64 (53.98 kg, 170.18 cm) br2 07:05 Pain Scale: Adult br2 07:24 Pain Scale: Adult kc6 Hudson Coma Score: 07:12 Eye Response: spontaneous(4). Motor Response: obeys commands(6). Verbal Response: sp4 oriented(5). Total: 15. ED Course: 06:40 Patient arrived in ED. jj6 06:48 Matt Nguyen MD is Attending Physician. sp4 06:59 Report received from LUL Johnson. kc6 07:00 Arm band placed on. kc6 07:00 Patient has correct armband on for positive identification. Bed in low position. Call kc6 light in reach. Side rails up X2. automotive services manager on. Pulse ox on. NIBP on. Door closed. Noise minimized. Lights dimmed. Warm blanket given. Pillow given. 07:00 Maintain EMS IV. Dressing intact. Good blood return noted. Site clean \T\ dry. Gauge \T\ jenny 6 site: 20G LAC. Flushed with 10 mL NS. Patient maintains SpO2 saturation greater than 95% on room air. 07:03 Ashtyn De La Torre RN is Primary Nurse. kc6 07:08 Triage completed. br2 07:16 Attending Physician role handed off by Matt Nguyen MD sp3 07:16 Carlos Galvez MD is Attending Physician. sp3 07:[address] via stretcher. kc6 07:29 CT Head C Spine In Process Unspecified. EDMS 07:29 CT Chest Abdomen Pelvis W/O Contrast In Process Unspecified. EDMS 07:43 XRAY Chest (1 view) In Process Unspecified. EDMS 08:04 T4 Free Sent. nh2 08:04 TSH Sent. nh2 08:04 CRP Sent. nh2 08:04 Lactate w/ 2H reflex if indic. Sent. nh2 08:04 Blood Culture Adult (2) Sent. nh2 08:04 Urinalysis W/Microscopic Sent. nh2 08:05 Basic Metabolic Panel Sent. nh2 08:05 CBC with Diff Sent. nh2 08:05 LFT's Sent. nh2 08:05 Magnesium Sent. nh2 08:05 NT PRO-BNP Sent. nh2 08:05 PT-INR Sent. nh2 08:05 Troponin HS Sent. nh2 08:31 Removal of navas catheter. kc6 08:32 Repositioned patient. Cleaned of incontinence. Linen changed. kc6 08:48 Coud inserted, using sterile technique, 14 Fr. Returned cloudy urine. To gravity kc6 drainage. Clamped. 08:50 Niru Giles MD is Hospitalizing Provider. sp3 10:05 Report given to Nicole Turk RN. kc6 14:55 Provided Education on: need for admit. 6 14:55 No provider procedures requiring assistance completed. Patient admitted, IV remains in tm6 place. Administered Medications: 06:55 Drug: Diltiazem IVP 10 mg IVP once; Over 2 minutes Route: IVP; Site: left antecubital; br2 07:00 Follow up: Response: No adverse reaction; Cardiac rhythm changed kc 08:15 Drug: NS 0.9% IV 1000 ml IV at 125 ml/hr once; to be given as a bolus over 60 minutes kc Route: IV; Rate: 125 ml/hr; Site: right forearm; 08:15 Drug: Rocephin - Rocephin (cefTRIAXone) IVPB 1 grams IVPB once over 30 mins; (mix in 50 kc6 mL NS) Route: IVPB; Infused Over: 30 mins; Site: right forearm; 08:52 Follow up: Response: No adverse reaction; IV Status: Completed infusion; IV Intake: [id number] 08:16 Drug: vancoMYCIN IVPB 1 grams IVPB once over 2 hrs Route: IVPB; Infused Over: 2 hrs; kc6 Site: right forearm; : Follow up: Response: No adverse reaction; IV Status: Completed infusion; IV Intake: kc6 250ml 09:02 Not Given (Physician Discretion): diltiazem 5 mg/hr IV at calculated rate See kc6 Administration Instructions; (standard dilution 125 mg diltiazem mixed in 125 mL NS; final concentration 1mg/mL). Recommended max rate 15 mg/hr; Titrate 5 mg/hr as often as every 15 minutes to achieve goal (see titration policy); Goal parameter HR less than 100 bpm 09:02 Drug: Albumin IVPB 25 grams 100 ml IVPB once; (Note: Albumin 25% concentration) Volume: kc6 100 ml; Route: IVPB; Site: left antecubital; : Follow up: Response: No adverse reaction; IV Status: Completed infusion; IV Intake: kc6 100ml 09:02 Drug: NS 0.9% IV 1000 ml IV at 1000 ml once; to be given as a bolus over 60 minutes kc6 Route: IV; Rate: 1000 ml; Site: left antecubital; 10:00 Follow up: Response: No adverse reaction; IV Status: Completed infusion; IV Intake: tm6 1000ml Medication: 14:56 VIS not applicable for this client. tm6 Intake: 08:52 IV: 10ml; Total: 10ml. kc6 09:23 IV: 250ml; Total: 260ml. kc6 09:23 IV: 100ml; Total: 360ml. kc6 10:00 IV: 1000ml; Total: 1360ml. tm6 Outcome: 08:50 Decision to Hospitalize by Provider. sp3 14:55 Admitted to ICU tm6 14:55 Condition: stable 14:55 Instructed on the need for admit, 14:56 Patient left the ED. tm6 Signatures: Dispatcher [employer] EDMS Carlos Galvez MD MD sp3 Sharon Matthewj6 Ashtyn De La Torre RN RN kc6 Matt Nguyen MD MD sp4 Nicole Turk RN RN tm6 Elizabeth Catalan RN RN br2 Monty Brannon, Axel nh2
--- NOTE | 2024-01-29 08:50 | EDPHYS ---
Physician Documentation [facility] Name: Enzo Person Age: 83 yrs Sex: Male : 1940 Arrival Date: 01/29/2024 Time: 06:39 Bed 14 Private MD: ED Physician Carlos Galvez HPI: 01/28 06:53 This 83 yrs old Male presents to ER via Unassigned with complaints of Fall sp4 Injury. 07:12 Patient is a very pleasant 83-year-old male who presents from longterm after acute sp4 fall. On presentation patient has a rapid irregular tachycardia consistent with atrial fibrillation with RVR. Patient has moderate dementia he is unsure what happened to him. Patient has indwelling Shell catheter. At this time patient has no active complaint. History limited secondary to dementia.. Historical: - Allergies: 07:08 PENICILLINS; br2 - PMHx: 07:24 Anemia; CKD; Hypothyroidism; UTI; benign prostatic hyperplasia (UTI); kc6 - Immunization history:: Adult Immunizations not up to date. - Infectious Disease History:: Denies. - Social history:: Smoking status: Patient denies any tobacco usage or history of. - Family history:: not pertinent. ROS: 07:12 Constitutional: Negative for fever, chills, and weight loss, positive fall in the sp4 longterm 07:12 All other systems are negative, Exam: 07:12 Constitutional: Frail elderly male, rapid tachycardia, indwelling Shell catheter, sp4 generalized physical debility Head/Face: Normocephalic, atraumatic. Eyes: Pupils equal round and reactive to light, extra-ocular motions intact. Lids and lashes normal. Conjunctiva and sclera are not injected. Cornea within normal limits. Periorbital areas with no swelling, redness, or edema. ENT: Nares patent. No nasal discharge, no septal abnormalities noted. Tympanic membranes are normal and external auditory canals are clear. Oropharynx with no redness, swelling, or masses, exudates, or evidence of obstruction, uvula midline. Mucous membranes moist. Neck: Trachea midline, no thyromegaly or masses palpated, and no cervical lymphadenopathy. Supple, full range of motion without nuchal rigidity, or vertebral point tenderness. Chest/axilla: Normal chest wall appearance and motion. Nontender with no deformity. No lesions are appreciated. Cardiovascular: Regular rate and rhythm with a normal S1 and S2. No gallops, murmurs, or rubs. Normal PMI, no JVD. No pulse deficits. Respiratory: Lungs have equal breath sounds bilaterally, clear to auscultation and percussion. No rales, rhonchi or wheezes noted. No increased work of breathing, no retractions or nasal flaring. Abdomen/GI: Soft, with normal bowel sounds. No distension or tympany. No guarding or rebound. No evidence of tenderness throughout. Back: No spinal tenderness. No costovertebral tenderness. Male : Normal genitalia with no discharge or lesions. Indwelling Shell catheter Skin: Warm, dry with normal turgor. Normal color with no rashes, no lesions, and no evidence of cellulitis. MS/ Extremity: Pulses equal, no cyanosis. Neurovascular intact. Full, normal range of motion. Neuro: Awake and alert, GCS 15, oriented to person, Cranial nerves II-XII grossly intact. Motor strength 5/5 in all extremities. Sensory grossly intact. Moderate dementia, physical deconditioning 07:12 ECG was reviewed by the Attending Physician. EKG at 0 645 EKG reveals A-fib with RVR at the rate of 156. Vital Signs: 07:05 BP 109 / 66; Pulse 155; Resp 14; Temp 97.2(TE); Pulse Ox 96% on R/A; Weight 53.98 kg; br2 Height 5 ft. 7 in. ; Pain 0/10; 07:24 BP 114 / 51; Pulse 105; Resp 17 S; Pulse Ox 100% on R/A; Pain 0/10; kc6 08:16 BP 96 / 49; Pulse 108; Resp 18 S; Pulse Ox 98% on R/A; kc6 08:49 BP 112 / 80; Pulse 94; Resp 17 S; Pulse Ox 100% on R/A; kc6 09:44 BP 108 / 51; Pulse 90; Resp 18 S; Pulse Ox 98% on R/A; kc6 10:08 BP 101 / 50; Pulse 84; Pulse Ox 97% on R/A; MAP 63 mmHg; tm6 07:05 Body Mass Index 18.64 (53.98 kg, 170.18 cm) br2 07:05 Pain Scale: Adult br2 07:24 Pain Scale: Adult kc6 Carlos Coma Score: 07:12 Eye Response: spontaneous(4). Motor Response: obeys commands(6). Verbal Response: sp4 oriented(5). Total: 15. MDM: 06:53 Medical Screening Exam initiated sp4 07:18 Differential diagnosis: closed head injury, contusion, fracture, laceration, multiple sp4 trauma, sprain, strain. Data reviewed: vital signs, nurses notes, EMS record, old medical records, lab test result(s), EKG, radiologic studies, CT scan, plain films. Consideration of Admission/Observation Escalation of care including admission/observation considered. Transition of care: After a detail discussion of the patient's case, care is transferred to Carlos Galvez MD. 07:21 ED course: Patient signed out to me by nighttime physician. 83-year-old male presents sp3 from longterm initially in A-fib RVR after mechanical fall where patient was found on the floor. Probable UTI per discussion at signout. Pending workup includes traumagram CT, labs, UA and Shell exchange. Disposition probable admission pending workup.. 08:33 ED course: Traumagram negative except for Shell catheter balloon being in the prostate. sp3 This has been swapped out and the original was placed at the longterm or at least brought from the longterm. Patient in no acute distress and states he is "fine and wants to go home". Remainder blood work pending.. 08:49 ED course: Labs demonstrate leukocytosis at 27,000, lactic acidosis, and mild bump in sp3 troponin. Given heart rate and blood pressure, we will continue IV fluids. Antibiotics were ordered earlier. Patient will be admitted for further care and consultation.. 08:50 ED course: Reevaluation after IV fluids ordered by night physician demonstrates sp3 continued tachycardia. We will continue IV fluids with another bolus. Patient will be admitted at this time.. 12 06:51 Order name: Basic Metabolic Panel; Complete Time: : sp4 01/28 06:51 Order name: CBC with Diff; Complete Time: : sp4 01/28 06:51 Order name: LFT's; Complete Time: 11: sp4 01/28 06:51 Order name: Magnesium; Complete Time: 11: sp4 01/28 06:51 Order name: NT PRO-BNP; Complete Time: 11: 4 01/28 06:51 Order name: PT-INR; Complete Time: 08:39 4 01/28 06:51 Order name: Troponin HS; Complete Time: 11:07 4 01/28 06:52 Order name: Urinalysis W/Microscopic; Complete Time: 08:39 4 01/28 06:52 Order name: Blood Culture Adult (2) 4 01/28 06:52 Order name: Lactate w/ 2H reflex if indic.; Complete Time: 08:39 4 01/28 06:53 Order name: CRP; Complete Time: 11:07 4 01/28 06:53 Order name: TSH; Complete Time: 11:07 [facility] 01/28 06:53 Order name: T4 Free; Complete Time: 11:07 [facility] 01/28 08:08 Order name: Urine Culture EDMA 01/28 08:19 Order name: Manual Differential; Complete Time: 11:07 [facility] 01/28 08:38 Order name: Ghost Lactate-NO COLLECT Timer; Complete Time: 11:07 EDMA 01/28 10:41 Order name: Troponin High Sensitivity EDMS 01/28 10:41 Order name: Troponin High Sensitivity EDMS 01/28 10:41 Order name: Troponin High Sensitivity EDMS 01/28 10:47 Order name: Urinalysis w/ reflexes EDMS 01/28 10:47 Order name: Basic Metabolic Panel EDMS 01/28 10:47 Order name: Basic Metabolic Panel EDMS 01/28 10:47 Order name: Basic Metabolic Panel EDMS 01/28 10:47 Order name: Basic Metabolic Panel EDMS 01/28 10:47 Order name: CBC with Automated Diff EDMS 01/28 10:47 Order name: CBC with Automated Diff EDMS 01/28 10:47 Order name: CBC with Automated Diff EDMS 01/28 10:47 Order name: CBC with Automated Diff EDMS 01/28 10:47 Order name: Magnesium EDMS 01/28 10:47 Order name: Magnesium EDMS 01/28 10:47 Order name: Magnesium EDMS 01/28 10:47 Order name: Magnesium EDMS 01/28 10:54 Order name: Basic Metabolic Panel; Complete Time: 12:04 EDMS 01/28 10:55 Order name: Creatine Phosphokinase EDMS 01/28 10:56 Order name: Lactate w/ 2H reflex if indic.; Complete Time: 12:04 EDMA 01/28 11:32 Order name: Lactate w/ 2H reflex if indic. cm12 01/28 12:08 Order name: ABG Arterial Blood Gas [facility] 01/28 06:51 Order name: XRAY Chest (1 view); Complete Time: 08:02 4 01/28 06:52 Order name: CT Head C Spine; Complete Time: 08:02 4 01/28 06:52 Order name: CT Chest Abdomen Pelvis W/O Contrast; Complete Time: 08:02 4 01/28 11:57 Order name: CT; Complete Time: 12:04 EDMA 01/28 10:47 Order name: CONS Physician Consult EDMA 01/28 06:51 Order name: Cardiac monitoring; Complete Time: 07:03 4 01/28 06:51 Order name: EKG - Nurse/Tech; Complete Time: 07:18 4 01/28 06:51 Order name: IV Saline Lock; Complete Time: 07:18 4 01/28 06:51 Order name: Labs collected and sent; Complete Time: 08:06 4 01/28 06:51 Order name: O2 Per Protocol; Complete Time: 07:03 4 01/28 06:51 Order name: O2 Sat Monitoring; Complete Time: 07:03 4 01/28 06:52 Order name: Shell; Complete Time: 08:42 sp4 EC:45 Rate is 156 beats/min. Rhythm is regular, A fib with Rapid ventricular response. QRS sp4 Kelliher is Normal. QRS interval is normal. QT interval is normal. No ST changes noted. Clinical impression: Atrial Fibrillation. Interpreted by me. Reviewed by me. Administered Medications: 06:55 Drug: Diltiazem IVP 10 mg IVP once; Over 2 minutes Route: IVP; Site: left antecubital; br2 07:00 Follow up: Response: No adverse reaction; Cardiac rhythm changed kc6 08:15 Drug: NS 0.9% IV 1000 ml IV at 125 ml/hr once; to be given as a bolus over 60 minutes kc6 Route: IV; Rate: 125 ml/hr; Site: right forearm; 08:15 Drug: Rocephin - Rocephin (cefTRIAXone) IVPB 1 grams IVPB once over 30 mins; (mix in 50 kc6 mL NS) Route: IVPB; Infused Over: 30 mins; Site: right forearm; 08:52 Follow up: Response: No adverse reaction; IV Status: Completed infusion; IV Intake: [id number] 08:16 Drug: vancoMYCIN IVPB 1 grams IVPB once over 2 hrs Route: IVPB; Infused Over: 2 hrs; kc6 Site: right forearm; 09:23 Follow up: Response: No adverse reaction; IV Status: Completed infusion; IV Intake: kc6 250ml 09:02 Not Given (Physician Discretion): diltiazem 5 mg/hr IV at calculated rate See kc6 Administration Instructions; (standard dilution 125 mg diltiazem mixed in 125 mL NS; final concentration 1mg/mL). Recommended max rate 15 mg/hr; Titrate 5 mg/hr as often as every 15 minutes to achieve goal (see titration policy); Goal parameter HR less than 100 bpm 09:02 Drug: Albumin IVPB 25 grams 100 ml IVPB once; (Note: Albumin 25% concentration) Volume: kc6 100 ml; Route: IVPB; Site: left antecubital; 09:23 Follow up: Response: No adverse reaction; IV Status: Completed infusion; IV Intake: kc6 100ml 09:02 Drug: NS 0.9% IV 1000 ml IV at 1000 ml once; to be given as a bolus over 60 minutes kc6 Route: IV; Rate: 1000 ml; Site: left antecubital; 10:00 Follow up: Response: No adverse reaction; IV Status: Completed infusion; IV Intake: tm6 1000ml Disposition Summary: 01/29/24 08:50 Hospitalization Ordered Notes: Hospitalization Status: Inpatient Admission sp3 Provider: Niru Giles sp3 Condition: Stable sp3 Problem: an acute exacerbation sp3 Symptoms: have worsened sp3 Bed/Room Type: Standard sp3 Location: Intensive Care Unit(01/29/24 12:16) eb Room Assignment: 1-(01/29/24 12:42) eb Diagnosis - Fall, pneumonia, sepsis sp3 Forms: - Medication Reconciliation Form sp3 - SBAR form sp3 - Leadership Thank You Letter sp3 Signatures: Dispatcher [employer] Paola Roth Setul, MD MD sp3 Ashtyn De La Torre RN RN kc6 Matt Nguyen MD MD sp4 Elizabeth Catalan RN RN br2 Nicole Turk RN tm6 Corrections: (The following items were deleted from the chart) 06:51 06:51 BASIC METABOLIC PANEL+C.LAB.BRZ ordered. EDMS EDMS 06:51 06:51 CBC+H.LAB.BRZ ordered. EDMS EDMS 06:51 06:51 HEPATIC FUNCTION+C.LAB.BRZ ordered. EDMS EDMS 06:51 06:51 MAGNESIUM+C.LAB.BRZ ordered. EDMS EDMS 06:51 06:51 PROBNP+C.LAB.BRZ ordered. EDMS EDMS 06:51 06:51 PROTIME (+INR)+COAG.LAB.BRZ ordered. EDMS EDMS 06:51 06:51 Troponin High Sensitivity+C.LAB.BRZ ordered. EDMS EDMS 06:52 06:51 Chest Single View+RAD.RAD.BRZ ordered. EDMS EDMS 06:53 06:53 C-REACTIVE PROTEIN+C.LAB.BRZ ordered. EDMS EDMS 06:53 06:53 THYROID STIMULAT HORMONE+C.LAB.BRZ ordered. EDMS EDMS 06:53 06:53 T4 FREE+C.LAB.BRZ ordered. EDMS EDMS 10:58 08:50 sp3 eb 12:16 08:50 Telemetry/MedSurg (Inpatient) sp3 eb 12:16 10:58 211 eb eb 12:42 12:16 eb eb
[2024-01-29 08:57] LABS: Differential Total Cells Count 100; Lymphocytes 1 % (15-42); Monocytes 3 % (0-10); Platelet Estimate ADEQ; Platelets Clumped NOTED; Platelets, Giant NOTED; Segmented Neutrophils 96 % (40-80)
[2024-01-29 08:58] LABS: Blood Morphology Comment NOT SEEN (NOT SEEN)
--- NOTE | 2024-01-29 10:37 | P.HP ---
Patient History Date of Service: 01/29/24 Allergies Penicillins Allergy (Verified 06/10/23 18:02) Itching Home Medications: Levothyroxine [Synthroid*] 0.88 mg PO DAILY 06/14/23 Ensure Enlive 237 ml PO BID #60 can 06/16/23 Louie [Louie*] 1 pkt PO BID #60 packet 06/16/23 Medihoney [Medihoney Woundcare Gel*] 1 appl TOP DAILY #1 tube 06/16/23 Tamsulosin [Flomax*] 0.4 mg PO BEDTIME #30 cap 06/16/23 Cefpodoxime Proxetil [Vantin] 200 mg PO DAILY 14 Days #14 tab 07/09/23 Cranberry Fruit Concentrate [Urinary Health] DAILY 12/07/23 Ferrous Sulfate TID 12/07/23 Finasteride DAILY 12/07/23 Levothyroxine Sodium DAILY 12/07/23 Mirtazapine BEDTIME 12/07/23 Ceftriaxone [Rocephin] 1,000 mg IV DAILY 9 Days #9 vial 12/11/23 - Past Medical/Surgical History Diabetic: No -: hypothyroidism -: BPH with TURP -: TURP Psychosocial/ Personal History: Lives alone. He states he likes to lie on the floor. Daughter and ex- at bedside. - Social History Alcohol use: No CD- Drugs: No Caffeine use: Yes Physical Examination - Studies Laboratory Data (last 24 hrs) 01/29/24 01/29/24 01/29/24 08:00 08:00 08:00 WBC 17.70 H Hgb 11.4 L Hct 34.1 L Plt Count 227 PT 12.5 INR 1.12 Sodium 132 L Potassium 5.7 H BUN 162 H Creatinine 9.67 H Glucose 140 H Magnesium 2.7 H Total Bilirubin 0.6 AST 15 ALT 20 Alkaline Phosphatase 69 Assessment and Plan - Advance Directives Does patient have a Living Will: No Does patient have a Durable POA for Healthcare: No
[2024-01-29] MEDS ORDERED: ONDANSETRON 4 MG/2 ML VIAL IV PRN (10:43)
[2024-01-29] MEDS ORDERED: ALBUTEROL 2.5 MG/3 ML NEB SOL NEB PRN (10:57)
[2024-01-29] MEDS: NA CHLORIDE 0.9% 1,000 ML IV SCH (11:00)
[2024-01-29] MEDS: SOD POLYSTYREN SUL 15 GM/60 ML UCUP PO ONE (11:00)
--- NOTE | 2024-01-29 11:57 | RAD REPORT ---
EXAM: CT brain without contrast HISTORY: Alteration of consciousness. Confusion COMPARISON: January 29, 2024 TECHNIQUE: Multiple contiguous axial images were obtained and a CT of the brain without contrast.. Sagittal and coronal reconstruction performed. Automated exposure control, adjustment of the mA and/or kV according to patient size, and/or iterative reconstruction. Unless otherwise specified, incidental f indings do not require dedicated imaging follow-up FINDINGS: An intracranial bleed is not seen Ventricles are normal caliber No extra-axial fluid collection noted No significant hypodensity within the brain. Cerebral atrophy is present No fluid within the visualized sinuses or mastoids noted. IMPRESSION: No acute intracranial abnormality noted. If the patient continues to have symptoms to suggest an acute intracranial abnormality then MRI of th e brain would be recommended.
[2024-01-29 11:59] LABS: Anion Gap 15.3 mEq/L (5.0-15.0); Potassium 5.3 mEq/L (3.5-5.1)
[2024-01-29 12:08] LABS: Arterial Blood Carboxyhemoglob 1.1 % (0-1.5); Blood Gas Oxyhemoglobin 92.7 % (94-97); Blood Gas THB 8.9 g/dl (12-18); Blood O2 Saturation 95.3 % (92-98.5)
--- NOTE | 2024-01-29 12:41 | P.HP ---
Certification for Inpatient Patient admitted to: Inpatient With expected LOS: >2 Midnights Patient will require the following post-hospital care: None Practitioner: I am a practitioner with admitting privileges, knowledge of patient current condition, hospital course, and medical plan of care. Services: Services provided to patient in accordance with Admission requirements found in Title 42 Section 412.3 of the Code of Federal Regulations Patient History Date of Service: 01/29/24 Reason for admission: DWIGHT; AMS History of Present Illness: Patient is an 83-year-old gentleman with a history of prostate issues. He has had benign prostatic hypertrophy and has been following up with a urologist. He developed a urinary tract infection and laying on the floor for about 2 to 3 days and not getting up. He became really septic from a urinary tract infection. Patient developed kidney failure from this prior infections. Since June, patient has been follow-up for chronic kidney disease. Patient moved to [place] and has been staying there since that time. Patient has been fighting renal failure problems since that time and patient is also been having recurrent urinary tract infections. Since patient has been sick he has been wearing the adult diaper and has had frequent urinary tract infections. Patient has had Shell catheters been placed in has removed them and developed hematuria, and he had to get transferred to [facility] in [place] because of the persistent hematuria. Patient saw urologist at the facility and after getting IM med ications patient started doing better. Last week, family also noticed some hematuria. Dr. Mcgraw, is his urologist in the local area. Dr. Brock is his restaurant lead. His GFR has been low, but not at a stage for needing HD. They have not talked about starting HD, and that is something the family is not sure about. Patient with uremic encephalopathy and most likely bacteremia with sepsis with toxic encephalopathy. CT traumagram was performed that was negative. Repeat CT of the head was unremarkable as well. Continue with hydration and nephrology consultation. Monitor I's and O's strictly. Shell catheter has been placed and urine output increasing. Will monitor patient in the emergency room very closely. Allergies Penicillins Allergy (Verified 06/10/23 18:02) Itching Home Medications: Acetaminophen [8 Hour Acetaminophen] 650 mg PO Q6H PRN 01/29/24 Cranberry Fruit [Cranberry] 450 mg PO DAILY 01/29/24 Ferrous Sulfate [Feosol] 325 mg PO TID 01/29/24 Finasteride [Proscar*] 5 mg PO DAILY 01/29/24 Levofloxacin [Levaquin] 250 mg PO DAILY 01/29/24 Levothyroxine [Synthroid*] 88 mcg PO DAILY 01/29/24 Mirtazapine [Remeron*] 15 mg PO DAILY 01/29/24 Tamsulosin HCl [Flomax] 0.4 mg PO BEDTIME 01/29/24 - Past Medical/Surgical History Diabetic: No -: hypothyroidism -: BPH with TURP -: Chronic kidney disease stage III -: TURP Psychosocial/ Personal History: Lives alone. He states he likes to lie on the floor. Daughter and ex- at bedside. - Family History Father Family History: Reviewed- Non-Contributory - Social History Smoking Status: Former smoker Alcohol use: No CD- Drugs: No Caffeine use: Yes Review of Systems is unable to be obtained Physical Examination - Vital Signs Temperature: 98 F Blood Pressure: 110/70 Pulse: 80 Respirations: 18 Pulse Ox (%): 95 - Physical Exam General: Confused, Other (Lethargic) HEENT: Atraumatic, Normocephalic, PERRLA Neck: Supple, 2+ carotid pulse no bruit, JVD not distended Respiratory: Diminished Cardiovascular: Normal S1 S2, Other (Tachyarrhythmia) Gastrointestinal: Normal bowel sounds, Soft and benign, Non-distended, No rebound, No guarding Musculoskeletal: No clubbing, No swelling Integumentary: No rashes Neurological: Sensation intact, Cranial nerves 3-12 intact, Abnormal gait, Abnormal strength Lymphatics: No axilla or inguinal lymphadenopathy Urinary: Shell catheter - Studies Laboratory Data (last 24 hrs) 01/29/24 01/29/24 01/29/24 08:00 08:00 08:00 WBC 17.70 H Hgb 11.4 L Hct 34.1 L Plt Count 227 PT 12.5 INR 1.12 Sodium 132 L Potassium 5.7 H BUN 162 H Creatinine 9.67 H Glucose 140 H Magnesium 2.7 H Total Bilirubin 0.6 AST 15 ALT 20 Alkaline Phosphatase 69 Assessment & Plan - Problems (Diagnosis) (1) DWIGHT (acute kidney injury) Current Visit: No Status: Acute (2) BPH with urinary obstruction Current Visit: No Status: Acute (3) Complicated UTI (urinary tract infection) Current Visit: No Status: Acute (4) Sepsis due to urinary tract infection Current Visit: No Status: Acute (5) Urinary retention Current Visit: No Status: Acute (6) Obstructive uropathy Current Visit: Yes Status: Acute (7) Hyperkalemia Current Visit: Yes Status: Acute (8) Leukocytosis Current Visit: Yes Status: Acute - Plan Assessment/Plan: 1. Altered mental status most likely related to uremic encephalopathy with toxic encephalopathy; continue with IV fluids and IV antibiotic therapy. Continue monitoring labs closely. Continue with aggressive IV hydration. 2. Acute kidney injury on chronic kidney disease stage III; continue monitoring renal function closely. Continue with checking BUN and creatinine at this time. Gentle IV hydration at this time. Check a renal ultrasound. Patient with CT scan showing bilateral hydronephrosis which is most likely related to obstructive uropathy secondary to BPH. 3. UTI; continue with IV antibiotic therapy 4. Elevated troponin; monitor troponins and cardiology consultation 5. GI and DVT prophylaxis Discharge Plan: Long Term Plan to discharge in: Greater than 2 days - Advance Directives Does patient have a Living Will: No Does patient have a Durable POA for Healthcare: No - Code Status/Comfort Care Code Status Assessed: Yes Code Status: Full Code Critical Care: Yes Time Spent Managing PTS Care (In Minutes): 45
[2024-01-29] MEDS: NACHLORIDE 0.45% 1,000 ML with NA BICARB 8.4% 50 MEQ IV SCH (13:00)
[2024-01-29] MEDS ORDERED: SODIUM BICARB 50 MEQ/50ML VIAL ONE (13:19)
[2024-01-29] MEDS ORDERED: SOD POLYSTYREN SUL 15 GM/60 ML UCUP ONE (13:19)
[2024-01-29] MEDS ORDERED: NACHLORIDE 0.45% 0 ML IV ONE (13:19)
--- NOTE | 2024-01-29 14:48 | EKG ---
Test Date: 2024-01-29 Test Time: 07:09:48 Aerospace Project Engineer: BUBBA MEASUREMENT RESULTS: Intervals: Rate: 115 WI: 116 QRSD: 82 QT: 306 QTc: 423 [place]: P: 72 WI: 116 QRS: 72 T: 46 INTERPRETIVE STATEMENTS: Sinus tachycardia with premature supraventricular complexes Otherwise normal ECG Compared to ECG 12/06/2023 18:46:32 Atrial premature complex(es) now present Sinus rhythm no longer present Electronically Signed On 01-29-24 14:48:19 ASSEMBLER EQUIPMENT by Cory Kruse
--- NOTE | 2024-01-29 14:48 | EKG ---
Test Date: 2024-01-29 Test Time: 06:45:49 Critical Power Technician: SIENA MEASUREMENT RESULTS: Intervals: Rate: 156 [place]: QRSD: 84 QT: 252 QTc: 406 [place]: P: [place]: QRS: 68 T: 83 INTERPRETIVE STATEMENTS: Supraventricular tachycardia Otherwise normal ECG Compared to ECG 12/06/2023 18:46:32 Sinus rhythm no longer present Electronically Signed On 01-29-24 14:48:22 FISH HATCHERY ASSISTANT by Cory Kruse
--- NOTE | 2024-01-29 15:38 | P.CNS ---
Date of Consult: 01/29/24 Chief Complaint: DWIGHT; AMS History of Present Illness: Patient with PMH of prostate problems, chronic kidney disease not on dialysis yet, presented with fall, mechanical ,denies chest pain, no palpitations, no syncope, no breathing problems. Allergies Penicillins Allergy (Verified 06/10/23 18:02) Itching Home medications list reviewed: Yes Home Medications: Acetaminophen [8 Hour Acetaminophen] 650 mg PO Q6H PRN 01/29/24 Cranberry Fruit [Cranberry] 450 mg PO DAILY 01/29/24 Ferrous Sulfate [Feosol] 325 mg PO TID 01/29/24 Finasteride [Proscar*] 5 mg PO DAILY 01/29/24 Levofloxacin [Levaquin] 250 mg PO DAILY 01/29/24 Levothyroxine [Synthroid*] 88 mcg PO DAILY 01/29/24 Mirtazapine [Remeron*] 15 mg PO DAILY 01/29/24 Tamsulosin HCl [Flomax] 0.4 mg PO BEDTIME 01/29/24 - Past Medical/Surgical History Diabetic: No -: hypothyroidism -: BPH with TURP -: TURP Psychosocial/ Personal History: Lives alone. He states he likes to lie on the floor. Daughter and ex- at bedside. - Social History Smoking Status: Unknown if ever smoked Alcohol use: No CD- Drugs: No Caffeine use: No Review of Systems 10-point ROS is otherwise unremarkable Physical Examination Temp Pulse Resp BP Pulse Ox 97.2 F 84 18 101/50 L 97 01/29/24 14:59 01/29/24 15:07 01/29/24 15:06 01/29/24 15:07 01/29/24 14:45 General: Alert, In no apparent distress HEENT: Atraumatic, PERRLA, Mucous membr. moist/pink, EOMI, Sclerae nonicteric Neck: Supple, 2+ carotid pulse no bruit, No LAD, Without JVD or thyroid abnormality Respiratory: Clear to auscultation bilaterally, Normal air movement Cardiovascular: Regular rate/rhythm, Normal S1 S2 Gastrointestinal: Normal bowel sounds, No tenderness Musculoskeletal: No tenderness Integumentary: No rashes Neurological: Normal gait, Normal speech, Normal tone, Normal affect Lymphatics: No axilla or inguinal lymphadenopathy Laboratory Data (last 24 hrs) 01/29/24 01/29/2424 08:00 08:00 08:00 WBC 17.70 H Hgb 11.4 L Hct 34.1 L Plt Count 227 PT 12.5 INR 1.12 Sodium 132 L Potassium 5.7 H BUN 162 H Creatinine 9.67 H Glucose 140 H Magnesium 2.7 H Total Bilirubin 0.6 AST 15 ALT 20 Alkaline Phosphatase 69 - Problems (1) Elevated troponin Current Visit: Yes Status: Acute Plan: mild elevated troponin, no EKG changes, no chest pain, most likely type 2 WI from CKD and possible rhabdo continue to trend troponin x3 sets then stop get echo No further cardiac work up at this time.
[2024-01-29 20:41] LABS: Absolute Eosinophils 0.1 K/uL (0-0.5); Absolute Lymphocytes (CBC) 0.6 K/uL (0.7-4.9); Absolute Monocytes 0.5 K/uL (0.1-1.3); Absolute Neutrophil 12.5 K/uL (1.8-8.0); Basophils % 0.2 % (0-1.3); Eosinophils % 0.4 % (0-4.4); Hematocrit 27.8 % (39.6-49.0); Hemoglobin 9.2 g/dL (13.6-17.9); Lymphocytes % 4.4 % (15.3-44.8); MCH 32.8 pg (27.0-35.0); MCHC 33.2 g/dL (32.0-36.0); MCV 98.9 fL (80-100); MPV 10.9 fL (7.6-11.3); Monocytes % 3.4 % (3.3-12.3); Neutrophils % 91.6 % (41.7-73.7); Platelets 159 thou/uL (152-406); RBC Red Blood Cell Count 2.81 M/uL (4.33-5.43); Red Cell Distribution Width 13.7 % (12.1-15.2)
[2024-01-29 21:02] LABS: Anion Gap 12.9 mEq/L (5.0-15.0); Potassium 4.9 mEq/L (3.5-5.1)
[2024-01-29] MEDS: HYDROCORTISONE SUC 100 MG INJ IV ONE (21:04)
[2024-01-29] MEDS: WATER FOR INJ,STERILE 10 ML ONE (21:04)
[2024-01-29 21:05] LABS: Troponin High Sensitivity 106.3 pg/mL (<58.9)
--- NOTE | 2024-01-30 02:22 | CON ---
Date of Consultation: 01/29/2024 Chief Complaint: Acute on chronic kidney injury, altered mental status, uremia. Subjective: The patient is an 83-year-old man with history of prostate enlargement. He has benign prostatic hypertrophy and he has been following up with urologist. He developed urinary tract infection and apparently he was lying on the floor for about 2 to 3 days and not getting up. He came to the hospital and was found to have urinary tract infection, and he was admitted to ICU for sepsis. The patient was found to have severe hyperazotemia, uremia and Nephrology consultation was requested. Urine output is not improving with IV fluids and family agreed to start hemodialysis and the patient is awaiting temporary catheter placement. The patient will have hemodialysis as soon as he has dialysis access. He has frequent urinary tract infection. He has history of acute kidney injury and previously he was admitted to the hospital for acute kidney injury. He has history of hydronephrosis. The patient was found to have severe hyperazotemia. BUN was up to 150 and 170. The patient was treated for hyperkalemia. Potassium was normal and is improving with treatment. The patient is to start dialysis for severe hyperazotemia. The patient has borderline oliguric urine output, which is not responding to IV fluids. Review of Systems: The patient cannot provide review of systems. He is lethargic. He is arousable although he is confused. Past Medical History: Hypothyroidism, chronic kidney disease stage 3, acute kidney injury, BPH with TURP, failure to thrive, history of falls. Family History: Hypertension. Social History: Former smoker. Denies alcohol. Denies drugs. Physical Examination: Vital Signs: Blood pressure 110/70, heart rate 80, temperature 98, respiratory rate 18, SpO2 95%. General: The patient is confused, arousable, lethargic. Eyes: Anicteric sclerae. EOMI. Ears, Nose, Mouth, and Throat: Oral mucosa moist. No pallor. Neck: Supple. No bruits. Lungs: Diminished breath sounds at bases. Heart: S1, S2. Abdomen: Soft, benign. Extremities: No edema. Laboratory Data: WBC 17.7, hemoglobin 11.4, platelet count 227,000. Sodium 142, potassium 5.7, BUN 162, creatinine 9.67, glucose 140. Magnesium 2.7. Total bilirubin 0.6. Impression And Plan: 1. Acute kidney injury. Plan is to start hemodialysis via temporary Gianluca catheter to continue dialysis to treat uremia. Provide management for severe hyperazotemia. 2. Hyperkalemia. Potassium was 5.7, normalized with treatment. The patient received medical treatment to control hyperkalemia. Hyperkalemia treated. Continue to monitor potassium level. Adjust dialysis treatment according to lab results. 3. Sepsis due to urinary tract infection. Continue antibiotics. 4. Urinary retention. The patient will be seen by urologist. 5. Obstructive uropathy. CT scan showed bilateral hydronephrosis, related to obstructive uropathy secondary to BPH. Further recommendation from urologist. TOM/KD Voice ID: [id number] Report ID: [id number] MTDD
[2024-01-30 03:55] LABS: Hepatitis B Core Ab, Total Nonreactive (Nonreactive)
[2024-01-30 03:58] LABS: Hepatitis B Surface Ab - Quant < 3.10 mIU/mL (<8.0)
[2024-01-30 05:44] LABS: Absolute Lymphocytes (CBC) 0.3 K/uL (0.7-4.9); Absolute Monocytes 0.2 K/uL (0.1-1.3); Absolute Neutrophil 10.7 K/uL (1.8-8.0); Eosinophils % 0.1 % (0-4.4); Hematocrit 27.5 % (39.6-49.0); Hemoglobin 8.9 g/dL (13.6-17.9); Lymphocytes % 2.7 % (15.3-44.8); MCH 32.4 pg (27.0-35.0); MCHC 32.3 g/dL (32.0-36.0); MCV 100.3 fL (80-100); MPV 11.2 fL (7.6-11.3); Monocytes % 1.5 % (3.3-12.3); Neutrophils % 95.7 % (41.7-73.7); Platelets 153 thou/uL (152-406); RBC Red Blood Cell Count 2.74 M/uL (4.33-5.43); Red Cell Distribution Width 13.8 % (12.1-15.2)
[2024-01-30 06:20] LABS: Anion Gap 17.6 mEq/L (5.0-15.0); Magnesium 2.4 mg/dL (1.6-2.4); Potassium 4.6 mEq/L (3.5-5.1)
[2024-01-30] MEDS: NA CHLORIDE 0.9% 0 ML ONE (07:04)
[2024-01-30] MEDS: NA CHLORIDE 0.9% 1,000 ML IV SCH (07:53)
[2024-01-30] MEDS: SODIUM BICARB 50 MEQ/50ML VIAL ONE (08:35)
--- NOTE | 2024-01-30 09:35 | P.CNS ---
Date of Consult: 01/30/24 Reason for Consult: Pneumonia Chief Complaint: DWIGHT; AMS History of Present Illness: Patient is 83 years of age lives in [place] alf has a history of dementia admitted with a fall denies any shortness of breath cough chest pain hemoptysis a very poor historian has chronic renal failure right lower lobe infiltrate elevated white count denies any history of cardiopulmonary problems Allergies Penicillins Allergy (Verified 06/10/23 18:02) Itching Home Medications: Acetaminophen [8 Hour Acetaminophen] 650 mg PO Q6H PRN 01/29/24 Cranberry Fruit [Cranberry] 450 mg PO DAILY 01/29/24 Ferrous Sulfate [Feosol] 325 mg PO TID 01/29/24 Finasteride [Proscar*] 5 mg PO DAILY 01/29/24 Levofloxacin [Levaquin] 250 mg PO DAILY 01/29/24 Levothyroxine [Synthroid*] 88 mcg PO DAILY 01/29/24 Mirtazapine [Remeron*] 15 mg PO DAILY 01/29/24 Tamsulosin HCl [Flomax] 0.4 mg PO BEDTIME 01/29/24 - Past Medical/Surgical History Diabetic: No -: hypothyroidism -: BPH with TURP -: Chronic kidney disease stage III -: TURP Psychosocial/ Personal History: Lives alone. He states he likes to lie on the floor. Daughter and ex- at bedside. - Family History Father Family History: Reviewed- Non-Contributory - Social History Smoking Status: Unknown if ever smoked Alcohol use: No CD- Drugs: No Caffeine use: Yes Review of Systems 10-point ROS is otherwise unremarkable Physical Examination Temp Pulse Resp BP Pulse Ox 97.3 F 70 73 H 121/52 L 98 01/30/24 08:00 01/30/24 08:00 01/30/24 08:00 01/30/24 08:00 01/30/24 08:00 General: Alert, Oriented x1 Respiratory: Clear to auscultation bilaterally Cardiovascular: No edema, Regular rate/rhythm, Normal S1 S2 Gastrointestinal: Normal bowel sounds, Soft and benign - Problems (1) Pneumonia Current Visit: Yes Status: Acute Plan: Patient is 83 years of age admitted with end-stage renal failure right lower lobe pneumonia apparently patient has a fall denies any pulmonary complaints no shortness of breath white count elevated x-ray CT scan shows predominantly right lower lobe infiltrate patient has a metabolic acidosis mild anemia of chronic disease recommend start on Rocephin awaiting dialysis signs oxygenation satisfactory Qualifiers: Aspiration pneumonia type: unspecified Laterality: right
[2024-01-30] MEDS: CEFTRIAXONE 1,000 MG in NA CHLORIDE 0.9% 50 ML IVPB SCH (09:47)
--- NOTE | 2024-01-30 13:00 | P.PN ---
Subjective Date of Service: 01/30/24 Chief Complaint: DWIGHT; AMS Subjective: Other (patient is bedridden.) Physical Examination - Vital Signs Temperature: 97.3 F Blood Pressure: 95/53 Pulse: 70 Respirations: 14 Pulse Ox (%): 97 - Physical Exam General: Other (chronically ill-appearing) HEENT: Atraumatic, Normocephalic Neck: Supple, JVD not distended Respiratory: Other (symmetric chest expansion) Cardiovascular: No rubs, No murmurs Gastrointestinal: Soft and benign, No guarding Musculoskeletal: No clubbing Integumentary: No warmth Neurological: Other (+AMS) Urinary: Other (no bladder distention) External genitalia: Deferred Rectal: Deferred Assessment And Plan - Plan # DWIGHT from obstructive uropathy + hypotension, on CKD Initiate HD today for uremia HD again tomorrow HD access: zarina catheter # Hypotension likely from severe sepsis +/- cardiogenic shock from uremic pericarditis BNP super high, trop elevatd but flat CT chest showed no e/o pulmo Htn Check TTE to assess LVEF & for uremic pericardial effussion/tamponade HD stat Check DHEAS & AM serum cortisol + ACTH Vasopressor/s prn to keep MAP > 65-70 # Hyperkalemia HD as above # Acidosis Dc IV bicarb HD as above # Sepsis 2/2 UTI Abx F/u cultures # Obstructive uropathy, BPH CT scan showed bilateral hydronephrosis, related to obstructive uropathy secondary to BPH Cont navas
[2024-01-30] MEDS: LIDOCAINE 1% 20 ML MDV ONE (14:05)
--- NOTE | 2024-01-30 15:30 | RAD REPORT ---
EXAMINATION: ONE VIEW CHEST XR CLINICAL INDICATION: Dialysis cath placement TECHNIQUE: Frontal chest projection is submitted. Examination is limited by patient positioning and t echnique. COMPARISON: 01/29/2024 FINDINGS: Left-sided venous catheters tip in SVC. No pneumothorax. Linear opacities in the right lung base, lik mack infectious.. The heart is upper limit of normal in size. No displaced fractures identified.
--- NOTE | 2024-01-30 15:40 | P.OP ---
Preoperative diagnosis: Renal insufficiency Postoperative diagnosis: The same Primary procedure: Insertion of left subclavian dialysis catheter Anesthesia: Local Estimated blood loss: Send 10 cc Operative Technique: After observing universal precautions and a surgical timeout, the area of the left chest was prepped with a DuraPrep solution, infiltrated with 1% lidocaine, and draped in the usual aseptic manner. The patient was now placed in reverse Trendelenburg. The finder needle was used to cannulate the left subclavian vein. We guided on the first pass. Good blood flow having been established, the guidewire was now passed down through the finder needle. Using a modified Seldinger technique, the dialysis catheter was inserted. It was flushed with normal saline after establishing that we had good blood flow. It was then anchored in place with nylon sutures. A sterile dressing was applied. A chest x-ray will be ordered on completion of the procedure. Transferred to: ICU Condition: Good
--- NOTE | 2024-01-30 15:43 | P.CNS ---
Date of Consult: 01/30/24 PC: I was asked to see this patient in regards to placement of a temporary dialysis catheter. HPC: Patient has a history of renal insufficiency, now requires dialysis on an emergent basis. PSHx: History of prostate issues, no evidence of any pacemakers, or fractures of his clavicle. Social Hx: There is to penicillin Sys R: Patient in good spirits today, lives in a local [place], used to work for [employer] O/E: Awake alert comfortable at the moment HEENT: Negative Chest: Chest movement equal bilaterally Abd: NAD [place]: Negative Impression: Requires temporary dialysis catheter placement Plan: I have discussed with the patient the risk of the procedure, we will place a left subclavian catheter.
[2024-01-30] MEDS: MANNITOL 25% 12.5 GM/50 ML VIAL IV PRN (16:00)
[2024-01-30] MEDS: Mupirocin NASAL 2 APPL/1 GM TUBE NAS SCH (20:49)
[2024-01-30 21:32] LABS: Albumin 2.4 g/dL (3.4-5.0); Albumin/Globulin Ratio 0.6 (1.1-1.8); Anion Gap 12.5 mEq/L (5.0-15.0); Bilirubin Total 0.4 mg/dL (0.2-1.0); Globulin 3.7 g/dL (2.3-3.5); Potassium 3.5 mEq/L (3.5-5.1); Protein, Total 6.1 g/dL (6.4-8.2)
[2024-01-31 05:57] LABS: Absolute Eosinophils 0.3 K/uL (0-0.5); Absolute Lymphocytes (CBC) 0.7 K/uL (0.7-4.9); Absolute Monocytes 0.7 K/uL (0.1-1.3); Absolute Neutrophil 6.6 K/uL (1.8-8.0); Basophils % 0.1 % (0-1.3); Eosinophils % 4.2 % (0-4.4); Hematocrit 29.7 % (39.6-49.0); Hemoglobin 10.2 g/dL (13.6-17.9); Lymphocytes % 8.2 % (15.3-44.8); MCH 33.5 pg (27.0-35.0); MCHC 34.2 g/dL (32.0-36.0); MPV 10.4 fL (7.6-11.3); Monocytes % 8.9 % (3.3-12.3); Neutrophils % 78.6 % (41.7-73.7); Platelets 213 thou/uL (152-406); RBC Red Blood Cell Count 3.03 M/uL (4.33-5.43); Red Cell Distribution Width 13.4 % (12.1-15.2)
[2024-01-31 06:04] LABS: Anion Gap 12.5 mEq/L (5.0-15.0); Magnesium 2.2 mg/dL (1.6-2.4); Phosphorus 3.7 mg/dL (2.5-4.9); Potassium 3.5 mEq/L (3.5-5.1)
[2024-01-31] MEDS: POTASSIUM 25 MEQ EFFERV TAB PO ONE (06:17)
[2024-01-31] MEDS ORDERED: SODIUM CHLORIDE 0.9% 10ML INJ IV PRN (15:04)
--- NOTE | 2024-01-31 16:39 | P.PN ---
Subjective Date of Service: 02/01/24 Chief Complaint: DWIGHT; AMS Subjective: Other (He received HD today.) Physical Examination - Vital Signs Temperature: 98.3 F Blood Pressure: 128/56 Pulse: 77 Respirations: 16 Pulse Ox (%): 100 - Physical Exam General: Other (chronically ill-appearing) HEENT: Atraumatic, Normocephalic Neck: Supple, JVD not distended Respiratory: Other (Symmetric chest expansion) Cardiovascular: No rubs, No murmurs Gastrointestinal: Soft and benign, No guarding Musculoskeletal: No clubbing Integumentary: No warmth Neurological: Normal tone Urinary: Other (no bladder distention) External genitalia: Deferred Rectal: Deferred - Studies Microbiology Data (last 24 hrs): 01/29/24 08:00 Blood - Blood Blood Culture Gram Stain - Final 01/29/24 08:00 Blood - Blood Gram Stain - Final 01/29/24 07:50 Blood - Blood Blood Culture Gram Stain - Final 01/29/24 07:50 Blood - Blood Gram Stain - Final Assessment And Plan - Plan # DWIGHT from obstructive uropathy + hypotension, on CKD Initiate HD on 01/30/2024 for uremia HD again received today Next HD tomorrow after TDC placement, then 3x/wk thereafter HD access: zarina catheter Case mngt consulted for outpt HD placement for DWIGHT # Non-tunneled hemodialysis catheter malfunction LIJV Zarina catheter malfxn Surgery consulted for TDC placement on 01/31 # Hypotension likely from severe sepsis +/- uremic pericarditis Improved BNP super high, trop elevatd but flat CT chest showed no e/o pulmo Htn F/u TTE to assess LVEF & for uremic pericardial effussion/tamponade HD stat Check DHEAS & AM serum cortisol + ACTH Vasopressor/s prn to keep MAP > 65-70 # Hyperkalemia HD as above # Acidosis Dc'ed IV bicarb HD as above # Sepsis 2/2 UTI Abx F/u cultures # Obstructive uropathy, BPH CT scan showed bilateral hydronephrosis, related to obstructive uropathy secondary to BPH Cont navas
[2024-01-31] MEDS: PANTOPRAZOLE 40 MG INJ IVP ONE (16:57)
--- NOTE | 2024-01-31 17:19 | P.PN ---
Date of Service: 01/30/24 Subjective Patient clinically doing well. Patient more awake and alert. Renal function stable and improving. However, nephrology wants to proceed with hemodialysis. Surgery consultation was placed. Continue with physical therapy and monitoring renal function closely. Patient will need to place Shell catheter and will need outpatient urology workup. Physical Examination - Vital Signs Reviewed - Physical Exam General: Confused, Other (Lethargic) Respiratory: Diminished Cardiovascular: Normal S1 S2, Other (Tachyarrhythmia) Gastrointestinal: Normal bowel sounds, Soft and benign, Non-distended, No rebound, No guarding Musculoskeletal: No clubbing, No swelling Integumentary: No rashes Neurological: Sensation intact, Cranial nerves 3-12 intact, Abnormal gait, Abnormal strength Urinary: Shell catheter Assessment & Plan - Problems (Diagnosis) (1) DWIGHT (acute kidney injury) Current Visit: No Status: Acute (2) BPH with urinary obstruction Current Visit: No Status: Acute (3) Complicated UTI (urinary tract infection) Current Visit: No Status: Acute (4) Sepsis due to urinary tract infection Current Visit: No Status: Acute (5) Urinary retention Current Visit: No Status: Acute (6) Obstructive uropathy Current Visit: Yes Status: Acute (7) Hyperkalemia Current Visit: Yes Status: Acute (8) Leukocytosis Current Visit: Yes Status: Acute - Plan Assessment/Plan: 1. Altered mental status most likely related to uremic encephalopathy with toxic encephalopathy; continue with IV fluids and IV antibiotic therapy. Continue monitoring labs closely. Continue with aggressive IV hydration. Patient clinically improving. However, nephrology wants to proceed with hemodialysis. Hemodialysis access has been placed. Possible dialysis later today. 2. Acute kidney injury on chronic kidney disease stage III; continue monitoring renal function closely. Continue with checking BUN and creatinine at this time. Gentle IV hydration at this time. Check a renal ultrasound. Patient with CT scan showing bilateral hydronephrosis which is most likely related to obstructive uropathy secondary to BPH. Patient need continued Shell catheter placement at discharge. Will start Flomax as well. Continue monitoring hemodynamics closely. Patient most likely will not need long-term dialysis as he is making plenty of urine. Will monitor his urine output and his labs closely. 3. UTI; continue with IV antibiotic therapy 4. Elevated troponin; monitor troponins and cardiology consultation 5. GI and DVT prophylaxis Discharge Plan: Senior Living Plan to discharge in: Greater than 2 days - Advance Directives Does patient have a Living Will: No Does patient have a Durable POA for Healthcare: No - Code Status/Comfort Care Code Status Assessed: Yes Code Status: Full Code Critical Care: Yes Time Spent Managing PTS Care (In Minutes): 45
--- NOTE | 2024-01-31 17:34 | P.PN ---
Date of Service: 01/31/24 Subjective Patient continues to do well. Patient denies any new complaints. Patient much more awake and alert. Urine output is adequate. Patient had 1000 cc removed. Patient with DWIGHT with severe dehydration on arrival. Patient had similar episodes on 2 different occasions and both time his renal function has recovered and he has been able to avoid hemodialysis. Because his urea level was so high we were able to get dialysis initiated. Uremia has improved significantly. Further management per nephrology. Physical Examination - Vital Signs Reviewed - Physical Exam General: AAO x 2; patient much more awake and alert Respiratory: Clear bilaterally Cardiovascular: Regular rate and rhythm with no murmurs Gastrointestinal: Normal bowel sounds, Soft and benign, Non-distended, No rebound, No guarding Musculoskeletal: No clubbing, No swelling Integumentary: No rashes Neurological: No focal deficits Urinary: Shell catheter Assessment & Plan - Problems (Diagnosis) (1) DWIGHT (acute kidney injury) secondary to dehydration and obstructive uropathy Current Visit: No Status: Acute (2) BPH with Obstructive uropathy Current Visit: No Status: Acute (3) Complicated UTI (urinary tract infection) Current Visit: No Status: Acute (4) Sepsis due to urinary tract infection Current Visit: No Status: Acute (5) Hyperkalemia Current Visit: Yes Status: Acute (6) Leukocytosis Current Visit: Yes Status: Acute - Plan Assessment/Plan: 1. Altered mental status most likely related to uremic encephalopathy with toxic encephalopathy; mentation is much improved. Patient much more awake and alert at this time. Patient tolerating diet. Uremia has pretty much improved where his mentation is much better. Patient with adequate urine output even though he had 1000 cc of fluid removed. Kidney seems to be recovering well. Patient supposed to get hemodialysis per nephrology recommendation once again. 2. Acute kidney injury on chronic kidney disease stage III; continue monitoring renal function closely. Continue with checking BUN and creatinine at this time. Since patient is still getting fluid taken out during hemodialysis even though clinically he was very dehydrated on arrival I think is beneficial for him to continue getting some IV hydration. At this time IV fluids have been discontinued per nephrology recommendations. Will monitor volume status closely. 3. UTI; continue with IV antibiotic therapy 4. Elevated troponin; monitor troponins and cardiology consultation 5. GI and DVT prophylaxis Discharge Plan: Alf Plan to discharge in: Greater than 2 days - Advance Directives Does patient have a Living Will: No Does patient have a Durable POA for Healthcare: No - Code Status/Comfort Care Code Status Assessed: Yes Code Status: Full Code Critical Care: Yes Time Spent Managing PTS Care (In Minutes): 45
[2024-01-31] MEDS: PANTOPRAZOLE 40 MG INJ IVP SCH (20:08)
[2024-01-31] MEDS: TAMSULOSIN 0.4 MG SR CAP PO SCH (20:09)
[2024-02-01 04:52] LABS: Hepatitis B surface AG Interp. Nonreactive (Nonreactive)
[2024-02-01 04:53] LABS: HBsAG Nonreactive Report Report
[2024-02-01 06:09] LABS: Absolute Eosinophils 0.3 K/uL (0-0.5); Absolute Lymphocytes (CBC) 0.7 K/uL (0.7-4.9); Absolute Monocytes 0.9 K/uL (0.1-1.3); Basophils % 0.2 % (0-1.3); Hematocrit 32.8 % (39.6-49.0); Hemoglobin 11.1 g/dL (13.6-17.9); Lymphocytes % 9.7 % (15.3-44.8); MCH 33.7 pg (27.0-35.0); MCV 98.9 fL (80-100); MPV 10.2 fL (7.6-11.3); Monocytes % 13.5 % (3.3-12.3); Neutrophils % 72.6 % (41.7-73.7); Platelets 222 thou/uL (152-406); RBC Red Blood Cell Count 3.31 M/uL (4.33-5.43); Red Cell Distribution Width 13.4 % (12.1-15.2)
[2024-02-01 06:26] LABS: Anion Gap 12.5 mEq/L (5.0-15.0); Magnesium 1.9 mg/dL (1.6-2.4); Potassium 3.5 mEq/L (3.5-5.1)
[2024-02-01] MEDS: KCL 20 MEQ/100 mL IVPB 20 MEQ/100 ML BAG IV SCH (06:43)
[2024-02-01] MEDS: POTASSIUM CL SA 10 MEQ TAB PO ONE (07:54)
[2024-02-01] MEDS: CEFAZOLIN 1 GM in NA CHLORIDE 0.9% 50 ML IVPB ONE (09:44)
[2024-02-01] MEDS: CEFAZOLIN 1 GM in NA CHLORIDE 0.9% 50 ML IVPB SCH (12:32)
--- NOTE | 2024-02-01 12:49 | P.PN ---
Subjective Date of Service: 02/01/24 Chief Complaint: DWIGHT; AMS Subjective: Improving He has no complaint, he states that he is doing fine but patient have advanced dementia, the nurse at bedside reported patient agitated at night, tolerating oral diet well without any nausea and vomiting, no skin infection or boil Review of Systems is unable to be obtained Physical Examination - Vital Signs Temperature: 98.5 F Blood Pressure: 123/64 Pulse: 93 Respirations: 16 Pulse Ox (%): 100 - Physical Exam Other Physical/Emotional Findings: - Physical Exam. General: Not acutely ill looking, in no apparent distress,. HEENT: Normocephalic, atraumatic, nonicteric sclera, nonanemic conjunctive. Neck: Supple, without JVD or goiter or thyroid mass. Respiratory: Normal breathing effort, clear to auscultation bilaterally, no crackles no wheezing or rhonchi. Cardiovascular: Regular rate and rhythm, S1, S2 normal, no murmur no gallop, Gianluca catheter in the left upper chest, no sign infection. Gastrointestinal: Normal bowel sounds, nondistended, nontender, No ascites, , No masses, no hepatosplenomegaly. Extremities l: No clubbing, No peripheral edema, full range of motion, no deformity, no muscle atrophy. Integumentary: No cellulitis or abscess, however multiple senile keratoses on the back. Lymphatics: No axilla or cervical lymphadenopathy. Neurology; alert awake oriented x1, no focal neurologic deficit, normal affection . mood and behavior. - Studies Microbiology Data (last 24 hrs): 01/29/24 08:00 Blood - Blood Aerobic Blood Culture - Final Staph Aureus 01/29/24 08:00 Blood - Blood Blood Culture Gram Stain - Final 01/29/24 08:00 Blood - Blood Anaerobic Blood Culture - Final Staph Aureus 01/29/24 08:00 Blood - Blood Gram Stain - Final 01/29/24 07:50 Blood - Blood Aerobic Blood Culture - Final Staph Aureus 01/29/24 07:50 Blood - Blood Blood Culture Gram Stain - Final 01/29/24 07:50 Blood - Blood Anaerobic Blood Culture - Final Staph Aureus 01/29/24 07:50 Blood - Blood Gram Stain - Final Assessment And Plan - Plan This is 83 years old half-way resident with past medical history notable for obstructive uropathy secondary to BPH, CKD who presented to emergency room for evaluation of altered mental status #1 MSSA bacteremia with sepsis Blood culture 4 out of 4 positive for methicillin sensitive Staphylococcus aureus, I will change antibiotics to cefazolin with renal adjustment, case discussed with Pharm.D. primary focus of infection unlikely complicated UTI, patient afebrile, leukocytosis trending down, I will order repeat blood culture today. Transthoracic echocardiogram done on Thursday per nurse, report is not available #2 complicated UTI with obstructive uropathy secondary to BPH Will keep the Shell catheter in, urine output 1.2 L over the 24-hour, urine culture coagulation positive Staphylococcus, identification and sensitivity still pending #3 DWIGHT on CKD on current hemodialysis His renal function gradually improving, BUN/creatinine initially 115/8 down to 44/3.7, urine output 1.2 L, unable to place tunneled dialysis catheter due to #1, no need for hemodialysis at the moment, nearing euvolemia, no serious electrolyte imbalance, patient may not need outpatient hemodialysis #4 metabolic encephalopathy secondary to #1 and #3 in advanced dementia Resolved, patient seems to be at his baseline DVT prophy enoxaparin subcu Disposition, possible downgrade to general medical floor tomorrow
[2024-02-01] MEDS ORDERED: CEFAZOLIN 1 GM in NA CHLORIDE 0.9% 50 ML IVPB SCH (18:00)
[2024-02-01] MEDS: NEPRO SHAKE 237 ML CAN PO SCH (20:49)
[2024-02-01] MEDS: CEFAZOLIN SODIUM 2 GM in NA CHLORIDE 0.9% 100 ML IVPB SCH (20:49)
--- NOTE | 2024-02-01 23:09 | PN ---
Date of Progress Note: 02/01/2024 Chief Complaint: Acute kidney injury, altered mental status. Subjective: The patient had dialysis done yesterday. He was initiated on dialysis when he came to e mergency room and was found to have uremia, hyperazotemia, altered mental status, and encephalopathy due to sepsis and uremia. Today, blood cultures show Staph aureus. The patient had temporary dialys is catheter placed on Thursday and dialysis was initiated today. Catheter is not working and cathete r will be removed, and catheter tip will be sent for culture. The patient is on antibiotics. He is doing better. He remains in ICU. He is hemodynamically stable, and his altered mental status has im proved with dialysis and antibiotic therapy. Review of Systems: Denies chest pain, palpitation. Physical Examination: Lungs: Clear to auscultation bilaterally. Heart: S1, S2. Abdomen: Soft. Extremities: No edema. Impression And Plan: 1.Acute kidney injury from multiple causes, including obstructive uropathy, hypotension. The patien t has underlying advanced chronic kidney disease, dialysis initiated on January [address] an is to monitor renal panel. Azotemia has improved with dialysis. The patient was found to have St aphylococcus aureus bacteremia, and temporary dialysis catheter will be removed today and culture hue l be sent from the catheter tip. The plan is to schedule for tunneled dialysis catheter when blood c ultures are negative. Case Management consulted for dialysis placement for acute kidney injury in ou tpatient setting. 2.Hypotension, likely from sepsis. The patient will have further workup for sepsis and bacteremia. Continue antibiotics. The patient is on vancomycin. Monitor vancomycin trough level. 3.Hyperkalemia due to acute kidney injury. The patient was treated with dialysis and received medic al treatment for hyperkalemia in the emergency room. Potassium level improved. 4.Acidosis, bicarbonate IV is stopped. Acidosis is controlled with dialysis. 5.Sepsis secondary to urinary tract infection versus other sources. The patient has Staphylococcus aureus bacteremia. The patient needs to be ruled out for endocarditis. Recommend Cardiology consult ation. 6.Obstructive uropathy. CT scan showed bilateral hydronephrosis related to obstructive uropathy sec ondary to BPH. Continue Shell. Recommend to consult Urology. TOM/LEIDYL Voice ID: [id number] Report ID: [id number]
[2024-02-02 04:55] LABS: Absolute Eosinophils 0.7 K/uL (0-0.5); Absolute Neutrophil 5.1 K/uL (1.8-8.0); Basophils % 0.5 % (0-1.3); Eosinophils % 9.3 % (0-4.4); Hemoglobin 9.7 g/dL (13.6-17.9); Lymphocytes % 12.5 % (15.3-44.8); MCH 32.4 pg (27.0-35.0); MCHC 32.4 g/dL (32.0-36.0); MCV 100.1 fL (80-100); Neutrophils % 64.7 % (41.7-73.7); Platelets 214 thou/uL (152-406); Red Cell Distribution Width 13.5 % (12.1-15.2)
[2024-02-02 05:20] LABS: Anion Gap 9.8 mEq/L (5.0-15.0); Potassium 3.8 mEq/L (3.5-5.1)
[2024-02-02] MEDS: NACHLORIDE 0.45% 1,000 ML IV SCH (11:19)
--- NOTE | 2024-02-02 12:36 | P.PN ---
Subjective Date of Service: 02/02/24 Chief Complaint: DWIGHT; AMS No event overnight, resting in bed without any complaint, the nurse at the bedside report no issue, remained afebrile, tolerating oral diet well, his temporal dialysis catheter removed yesterday and the tip of the catheter was sent for culture. Review of Systems is unable to be obtained Physical Examination - Vital Signs Temperature: 97.7 F Blood Pressure: 122/51 Pulse: 74 Respirations: 13 Pulse Ox (%): 98 - Physical Exam Other Physical/Emotional Findings: - Physical Exam. General: Not acutely ill looking, in no apparent distress,. HEENT: Normocephalic, atraumatic, nonicteric sclera, nonanemic conjunctive. Neck: Supple, without JVD or goiter or thyroid mass. Respiratory: Normal breathing effort, clear to auscultation bilaterally, no crackles no wheezing or rhonchi. Cardiovascular: Regular rate and rhythm, S1 , S2 normal, no murmur no gallop,. Gastrointestinal: Normal bowel sounds, nondistended, nontender, No ascites, , No masses, no hepatosplenomegaly. Extremities l: No clubbing, No peripheral edema, full range of motion, no deformity, no muscle atrophy. Integumentary: No cellulitis or abscess, however multiple senile keratoses on the back. Lymphatics: No axilla or cervical lymphadenopathy. Neurology; alert awake oriented x1, no focal neurologic deficit, normal affection . mood and behavior. - Studies Microbiology Data (last 24 hrs): 01/29/24 07:49 Clean Catch Urine [place] Count - Final >100,000 CFU/ML. 01/29/24 07:49 Clean Catch Urine - Final Staph Aureus 01/29/24 08:00 Blood - Blood Aerobic Blood Culture - Final Staph Aureus 01/29/24 08:00 Blood - Blood Blood Culture Gram Stain - Final 01/29/24 08:00 Blood - Blood Anaerobic Blood Culture - Final Staph Aureus 01/29/24 08:00 Blood - Blood Gram Stain - Final 01/29/24 07:50 Blood - Blood Aerobic Blood Culture - Final Staph Aureus 01/29/24 07:50 Blood - Blood Blood Culture Gram Stain - Final 01/29/24 07:50 Blood - Blood Anaerobic Blood Culture - Final Staph Aureus 01/29/24 07:50 Blood - Blood Gram Stain - Final Assessment And Plan - Plan This is 83 years old senior living resident with past medical history notable for obstructive uropathy secondary to BPH, CKD secondary to obstructive uropathy who presented to emergency room for evaluation of altered mental status #1 recurrent MSSA bacteremia with sepsis related to #3 Blood culture 4 out of 4 positive for methicillin sensitive Staphylococcus aureus, stable on cefazolin with renal adjustment, patient remained afebrile, leukocytosis resolved, primary infection focus is obstructive uropathy, Transthoracic echocardiogram done on Thursday per nurse, report is not available Old chart reviewed patient admitted in November 2023 with the same problem, treated with ceftriaxone for 2 weeks #2 catheter associated UTI with MSSA Urine culture identification and sensitivity reviewed, continue cefazolin Indwelling Shell catheter exchange after admission, keep Shell catheter in for #3 #3 severe bilateral hydronephrosis secondary to likely occluded double-J ureteral stents CT of abdomen and pelvis on admission personally reviewed progressive severe bilateral hydronephrosis with double-J ureteral stents patient need percutaneous nephrostolithotomy bilaterally to control primary focus of infection, I talked to IR doctors at this hospital this morning they are unable to perform the procedure. No urology net developer consultant is available at the facility as well. Old chart reviewed patient admitted in November 2023 with the same problem, treated with ceftriaxone for 2 weeks #4 DWIGHT on CKD on current hemodialysis His renal function gradually improving, BUN/creatinine initially 115/8 down to 51/4.2, urine output 1.2 L, serum potassium 3.8, bicarb 27 #5 metabolic encephalopathy secondary to #1 and #3 in advanced dementia Resolved, patient seems to be at his baseline #6 pneumonia in the right lower lobe associated #1 No sign of pneumonia symptoms, chest x-ray reviewed, focal infiltration in the right lower lobe, no cavitation, stable #7 anemia of chronic disease Hemoglobin 9.7, stable without any transfusion, no clinical bleeding DVT prophylaxis enoxaparin subcu Disposition, transferred to general medical floor ordered, awaiting room
--- NOTE | 2024-02-02 13:56 | ECHO ---
HEIGHT: 5 ft 7 in WEIGHT: 115 lb 5 oz DATE OF STUDY: 01/29/[address]: RJ 2-DIMENSIONAL: YES M.MODE: YES DOPPLER: YES COLOR FLOW: YES TDS: NO PORTABLE: YES DEFINITY: NO BUBBLE STUDY: NO DIAGNOSIS: NSTEMI, HYPOTENSION CARDIAC HISTORY: CATHERIZATION: SURGERY: PROSTHETIC VALVE: PACEMAKER: MEASUREMENTS (cm) DIASTOLIC (NORMALS) SYSTOLIC (NORMALS) IVSd 0.9 (0.6-1.2) LA Diam 2.3 (1.9-4.0) LVEF 60-65% LVIDd 4.2 (3.5-5.7) LVIDs 3.0 (2.0-3.5) %FS 28% LVPWd 1.0 (0.6-1.2) Ao Diam 2.9 (2.0-3.7) 2 DIMENSIONAL ASSESSMENT: RIGHT ATRIUM: NORMAL LEFT ATRIUM: NORMAL RIGHT VENTRICLE: NORMAL LEFT VENTRICLE: NORMAL TRICUSPID VALVE: TRACE TRICUSPID REGURGITATION MITRAL VALVE: TRACE MITRAL REGURGITATION PULMONIC VALVE: NORMAL AORTIC VALVE: MILD AORTIC REGURGITATION PERICARDIAL EFFUSION: NONE AORTIC ROOT: NORMAL LEFT VENTRICULAR WALL MOTION: NORMAL. DOPPLER/COLOR FLOW: NORMAL. COMMENTS: 1. NORMAL LEFT VENTRICULAR SYSTOLIC FUNCTION. LEFT VENTRICULAR EJECTION FRACTION 60-65%. NORMAL WALL MOTION. 2. NORMAL DIASTOLIC FUNCTION. 3. MILD AORTIC REGURGITATION. 4. MILDLY ELEVATED FILLING PRESSURE. RIGHT ATRIAL PRESSURE 5-10 mmHg. TECHNOLOGIST: GIOVANY TEIXEIRA
--- NOTE | 2024-02-02 14:18 | ECHO ---
HEIGHT: 5 ft 7 in WEIGHT: 115 lb 5 oz DATE OF STUDY: 01/29/[address]: 2-DIMENSIONAL: YES M.MODE: YES DOPPLER: YES COLOR FLOW: YES TDS: NO PORTABLE: YES DEFINITY: NO BUBBLE STUDY: NO DIAGNOSIS: NSTEMI, HYPOTENSION CARDIAC HISTORY: CATHERIZATION: SURGERY: PROSTHETIC VALVE: PACEMAKER: MEASUREMENTS (cm) DIASTOLIC (NORMALS) SYSTOLIC (NORMALS) IVSd 0.9 (0.6-1.2) LA Diam 2.3 (1.9-4.0) LVEF 60-65% LVIDd 4.2 (3.5-5.7) LVIDs 3.0 (2.0-3.5) %FS 28% LVPWd 1.0 (0.6-1.2) Ao Diam 2.9 (2.0-3.7) 2 DIMENSIONAL ASSESSMENT: RIGHT ATRIUM: NORMAL LEFT ATRIUM: NORMAL RIGHT VENTRICLE: NORMAL LEFT VENTRICLE: NORMAL TRICUSPID VALVE: TRACE TRICUSPID REGURGITATION MITRAL VALVE: TRACE MITRAL REGURGITATION PULMONIC VALVE: NORMAL AORTIC VALVE: MILD AORTIC REGURGITATION PERICARDIAL EFFUSION: NONE AORTIC ROOT: NORMAL LEFT VENTRICULAR WALL MOTION: NORMAL. DOPPLER/COLOR FLOW: NORMAL. COMMENTS: 1. NORMAL LEFT VENTRICULAR SYSTOLIC FUNCTION. LEFT VENTRICULAR EJECTION FRACTION 60-65%. NORMAL WALL MOTION. 2. NORMAL DIASTOLIC FUNCTION. 3. MILD AORTIC REGURGITATION. 4. MILDLY ELEVATED FILLING PRESSURE. RIGHT ATRIAL PRESSURE 5-10 mmHg. TECHNOLOGIST: GIOVANY TEIXEIRA
--- NOTE | 2024-02-02 17:34 | RAD REPORT ---
EXAMINATION: US RENAL CLINICAL INDICATION: Acute renal insufficiency. Chronic renal insufficiency. TECHNIQUE: Real-time ult rasonography of the kidneys performed. COMPARISON: June 2023. FINDINGS: Right kidney measures 10 cm with a normal echotexture. Moderate right hydronephrosis unchanged. 1.3 c m cyst. Left kidney measures 8 cm with a mildly increased echotexture. Moderate left hydronephrosis No hydron ephrosis. 1.3 cm cyst A Shell catheter is present within the bladder. The bladder is collapsed and poorly evaluated. There is marked prostatic enlargement. IMPRESSION: Moderate bilateral hydronephrosis without significant change
--- NOTE | 2024-02-02 19:54 | P.CNS ---
Date of Consult: 02/02/24 Reason for Consult: Urosepsis Chief Complaint: DWIGHT; AMS History of Present Illness: 83-year-old gentleman with history of prior TURP and potentially also prostate cancer, per his daughter, with persistent outlet obstruction/voiding dysfunction resulting in massive urinary retention and bilateral hydroureteronephrosis with acute on chronic kidney disease failing to improve despite urethral Shell catheterization secondary to ongoing UVJ obstruction. 07/07/23 s/p Cystoscopy, Right retrograde pyelography, Complicated right 7 Vincentian by 24 cm ureteral stent placement, Left retrograde pyelography, Complicated left attempted 7 Vincentian by 26 ureteral stent placement and successful complicated left 6 Vincentian by 26 cm ureteral stent placement, Fulguration of prostatic bleeding and Urethral Shell catheter placement Findings: Chronic urinary retention, BPH with obstruction status post TURP at outside facility, Bilateral hydroureteronephrosis secondary to UVJ obstruction, Chronic cystitis, and gross hematuria Today, I saw patient at bedside. He did not remember having met me on at least 2 prior occasions. He was seen as an outpatient in my office in November, after several months of delay apparently going to difficulties with insurance authorization. Urodynamics evaluation was recommended and apparently completed, and the patient has been scheduled to see me in follow-up. In the interim however, he recalls having suffered a fall while at home. He does not recall feeling badly or having any fever or chills. He acknowledges not having much of an appetite, but he does eat. He does not recall how or why he fell. Admission 01/29/2024 labs: Creatinine 9.23, WBC 17.7, hemoglobin 11.4, platelets 227, INR 1.12, pH 7.33, pCO2 33.9, pO2 84.0, HCO3 17.5, 95.3% on room air 02/02/2024 creatinine 4.22, WBC 7.8, hemoglobin 9.7, platelets 214 01/29/2024 urine and blood cultures positive for Staphylococcus aureus sensitive to Bactrim, tetracycline, cephalexin, oxacillin and vancomycin but resistant to the irina quinolones and penicillin -He is currently on cefazolin. Examination: Patient thin but well-appearing and in no acute distress Alert and awake No dyspnea or sign of respiratory distress Pulse 2+ radial and regular Abdomen soft, nontender, nondistended 14 Vincentian urethral Shell catheter in place draining very cloudy appearing urine. Orthotopic meatus. 01/29/2024 EKG: Sinus tachycardia with premature supraventricular complexes. Otherwise normal. 01/29/2024 echocardiography: LVEF 60 to 65% Normal left ventricular systolic function with normal wall motion. Normal diastolic function Mild aortic regurgitation Mildly elevated filling pressure. Right atrial pressure 5 to 10 mmHg 01/29/2024 CT chest abdomen and pelvis without contrast impression: No acute traumatic injury visualized. Mild to moderate reticular nodular opacities right lung may represent an atypical infection. Severe bilateral hydronephrosis and hydroureter which is worsening. Bilateral ureteral stents in place. Shell catheter with balloon in the prostatic urethra. Bladder is distended. Marked prostatic enlargement. 02/02/2024 follow-up renal ultrasound impression: Moderate bilateral hydronephrosis without significant change Findings: Shell catheter present within the bladder. Bladder is collapsed and poorly evaluated. Assessment and recommendation: Urosepsis with bilateral retained ureteral stents placed for UVJ obstruction 07/07/2023 secondary to chronic urinary retention -Sensitive Staphylococcus aureus on cefazolin -Recommend operative evaluation for bilateral ureteral stents extraction/exchange and urethral Shell catheter replacement in the a.m. Will have the laser available in case the stents are significantly encrusted and difficult to exchange. Risks of the procedure include worsening of current infection/sepsis, urethral stricture, ureteral injury/avulsion, unable to exchange the stents cystoscopically and need for percutaneous nephrostomy tube placement. -N.p.o. after midnight Chronic urinary retention in the setting of BPH with obstruction and history of TURP at outside facility -Urodynamics evaluation completed as an outpatient, and the intent was to complete definitive surgical management of any obstruction, if appropriate, at the time of reevaluation of his chronic UVJ obstruction. Given his current urosepsis, this management will need to be delayed. Also need opportunity to review the urodynamics. Acute on chronic kidney disease, likely exacerbated by stent obstruction with bilateral hydronephrosis persistent -Bilateral ureteral stent exchanges tomorrow a.m. as above Allergies Penicillins Allergy (Verified 06/10/23 18:02) Itching Home medications list reviewed: Yes Home Medications: Acetaminophen [8 Hour Acetaminophen] 650 mg PO Q6H PRN 01/29/24 Cranberry Fruit [Cranberry] 450 mg PO DAILY 01/29/24 Ferrous Sulfate [Feosol] 325 mg PO TID 01/29/24 Finasteride [Proscar*] 5 mg PO DAILY 01/29/24 Levofloxacin [Levaquin] 250 mg PO DAILY 01/29/24 Levothyroxine [Synthroid*] 88 mcg PO DAILY 01/29/24 Mirtazapine [Remeron*] 15 mg PO DAILY 01/29/24 Tamsulosin HCl [Flomax] 0.4 mg PO BEDTIME 01/29/24 - Past Medical/Surgical History Diabetic: No -: hypothyroidism -: BPH with TURP -: Chronic kidney disease stage III -: TURP Psychosocial/ Personal History: Lives alone. He states he likes to lie on the floor. Daughter and ex- at bedside. - Family History Father Family History: Reviewed- Non-Contributory - Social History Smoking Status: Unknown if ever smoked Alcohol use: No CD- Drugs: No Caffeine use: Yes Physical Examination Temp Pulse Resp BP Pulse Ox 98.1 F 81 16 115/56 L 96 02/02/24 16:34 02/02/24 16:34 02/02/24 16:34 02/02/24 16:34 02/02/24 16:34 - Problems (1) Retained ureteral stent Current Visit: Yes Status: Acute (2) Obstructive uropathy Current Visit: Yes Status: Chronic (3) DWIGHT (acute kidney injury) Current Visit: No Status: Acute (4) Acquired ureterovesical junction (UVJ) obstruction Current Visit: No Status: Chronic (5) BPH with urinary obstruction Current Visit: No Status: Chronic (6) Bilateral hydronephrosis Current Visit: No Status: Chronic (7) Sepsis due to urinary tract infection Current Visit: No Status: Acute (8) Urinary retention Current Visit: No Status: Chronic Conclusions/Impression: see A&P in HPI Critical Care: No Time Spent Managing Pts care (In Minutes): 60
--- NOTE | 2024-02-02 23:23 | PN ---
Date of Progress Note: 02/02/2024 Chief Complaint: Acute kidney injury, altered mental status. Subjective: The patient is admitted to ICU. The patient was admitted for uremia, hyperazotemia, alt ered mental status, encephalopathy secondary to uremia and sepsis. Blood culture shows Staph aureus, and temporary catheter which was instructed to start dialysis for uremia was discontinued and was re moved yesterday and catheter tip was sent for culture. DICTATION ENDS HERE. TOM/KD Voice ID: [id number] Report ID: [id number]
[2024-02-03 05:20] LABS: Absolute Basophils 0.1 K/uL (0-0.5); Absolute Eosinophils 0.6 K/uL (0-0.5); Absolute Lymphocytes (CBC) 0.9 K/uL (0.7-4.9); Absolute Monocytes 0.7 K/uL (0.1-1.3); Absolute Neutrophil 6.1 K/uL (1.8-8.0); Basophils % 0.6 % (0-1.3); Hematocrit 28.2 % (39.6-49.0); Hemoglobin 9.2 g/dL (13.6-17.9); Lymphocytes % 10.7 % (15.3-44.8); MCH 32.7 pg (27.0-35.0); MCHC 32.7 g/dL (32.0-36.0); MCV 99.9 fL (80-100); MPV 9.5 fL (7.6-11.3); Monocytes % 8.7 % (3.3-12.3); Platelets 247 thou/uL (152-406); RBC Red Blood Cell Count 2.82 M/uL (4.33-5.43); Red Cell Distribution Width 13.4 % (12.1-15.2)
[2024-02-03 05:33] LABS: Anion Gap 11.4 mEq/L (5.0-15.0); Potassium 3.4 mEq/L (3.5-5.1)
[2024-02-03] MEDS ORDERED: FENTANYL CITR 100 MCG/2 ML ONE (06:56)
[2024-02-03] MEDS ORDERED: LIDOCAINE 1% MPF 5 ML VIAL ONE (06:56)
[2024-02-03] MEDS ORDERED: propofoL 200 MG/20 ML VIAL IV ONE (06:56)
[2024-02-03] MEDS: propofoL 1,000 MG/100 ML VIAL IV ONE (07:18)
[2024-02-03] MEDS ORDERED: CEFTRIAXONE 1,000 MG in NA CHLORIDE 0.9% 50 ML IVPB ONE (07:34)
[2024-02-03] MEDS ORDERED: EPHEDRINE SULF 50 MG/ML VIAL ONE (07:37)
[2024-02-03] MEDS: CEFTRIAXONE 1000 MG/VIAL IVP ONE (07:41)
[2024-02-03] MEDS: LIDOCAINE JELLY 2% 5 ML SYRINGE TOP ONE (07:43)
[2024-02-03] MEDS: CEFTRIAXONE 1,000 MG in NA CHLORIDE 0.9% 50 ML IVPB ONE (08:00)
--- NOTE | 2024-02-03 08:40 | P.OP ---
Date of Service: 02/03/24 Preoperative diagnoses: Staphylococcal urosepsis Bilateral retained ureteral stents Bilateral persistent hydronephrosis Chronic urinary retention Chronic urethral Shell catheterization with period of catheter malpositioning and nondrainage BPH with obstruction History of TURP at outside facility Postoperative diagnoses: Staphylococcal urosepsis Bilateral retained ureteral stents without definitive stent obstruction identified Bilateral persistent hydronephrosis Chronic urinary retention Chronic urethral Shell catheterization with period of catheter malpositioning and nondrainage observed on admission BPH with obstruction History of TURP at outside facility Principal procedures: Cystoscopy Right retrograde pyelography Right 6 Brazilian by 24 cm double-J ureteral stent exchange Left 6 Brazilian by 24 cm double-J ureteral stent exchange Urethral Shell catheter exchange Indication for procedure: 83-year-old gentleman with history of prior TURP and potentially also prostate cancer, per his daughter, with persistent outlet obstruction/voiding dysfunction resulting in massive urinary retention and bilateral hydroureteronephrosis with acute on chronic kidney disease failing to improve despite urethral Shell catheterization secondary to ongoing UVJ obstruction 07/07/23 s/p Cystoscopy, Right retrograde pyelography, Complicated right 7 Brazilian by 24 cm ureteral stent placement, Left retrograde pyelography, Complicated left attempted 7 Brazilian by 26 ureteral stent placement and successful complicated left 6 Brazilian by 26 cm ureteral stent placement, Fulguration of prostatic bleeding and Urethral Shell catheter placement with findings of Chronic urinary retention, BPH with obstruction status post TURP at outside facility, Bilateral hydroureteronephrosis secondary to UVJ obstruction, Chronic cystitis, and gross hematuria. Readmitted with Urosepsis with bilateral retained ureteral stents with sensitive Staphylococcus aureus identified, now on cefazolin and Acute on chronic kidney disease with bilateral hydronephrosis persistent, secondary to catheter malpositioning within the prostatic urethra and large volume retained infected urine versus stent obstruction now requiring exchange. Procedure note: The patient's daughter consented on his behalf, and he was transferred to the operative suite where general anesthesia was induced. He was given ceftriaxone 1 g IV antimicrobial prophylaxis in addition to scheduled Ancef 2 g that he was receiving IV on the floor. Pneumoboots were provided for DVT prophylaxis. He was placed in the lithotomy position, padded and secured to the table appropriately. His genitalia was prepped with Hibiclens and he was draped in standard fashion after the indwelling urethral Shell catheter had been removed. The case was begun using a 22 Brazilian rigid cystoscope to begin traversing his urethra, but the patient was still somewhat light relative to the anesthesia. As a result, lidocaine Uro-Jet was then applied for local anesthesia. He then tolerated the cystoscope insertion better, and I navigated through the urethra and into his bladder with ease. The following were the cystoscopic findings: Meatus -patent without stenosis Urethra -no stricture disease or mucosal lesions Prostatic urethra -interdigitating lateral lobar hypertrophy with intravesical projection and a small median lobe abutting and obscuring the ureteral orifices bilaterally Bladder -moderate to severely trabeculated but no papillary mucosal lesions noted I thus distended his bladder in order to visualize the coils of the stent, which were buried beneath the intraluminal aspect of the prostate. Grabbing first these tip of the right ureteral stent coil, I was able to deliver it to the meatus using an alligator grasper. With the proximal coil still within the mid ureter, I passed a sensor wire up the ureteral stent but it did coil somewhat within the ureter owing to some tortuosity. As a result, I passed the 5 Brazilian ureteral access catheter over the wire into the mid ureter and navigated the sensor wire beyond the point of tortuosity, ultimately causing the ureter to straighten out. I was then able to navigate the sensor wire further into what might have been the renal pelvis and that there was a more open space in which the wire did appear to coil. As a result, I advanced a 5 Brazilian ureteral access catheter all the way into that space and remove the wire. I then injected contrast via the 5 Brazilian ureteral access catheter. Right retrograde pyelography: Using a 70: 30 mixture of Omnipaque and saline, contrast was injected via the lumen of the 5 Brazilian ureteral access catheter and did immediately fill the calyces of the kidney as well as the renal pelvis evidencing moderate pelvocaliectasis. As a result, advanced the sensor wire back via the 5 Brazilian ureteral access catheter coiling it within the hydronephrotic kidney, and then remove the 5 Brazilian ureteral access catheter. I then left the wire in place and remove the cystoscope and turned my attention to the patient's left side. Navigating the cystoscope back via the urethra alongside the wire and into the bladder again, this time I grasped the tip of the left ureteral stent and using the alligator grasper was able to deliver it to the meatus. There, I advanced a Bentson guidewire via the stent ultimately into the left renal pelvis. The wire did coil fluoroscopically. As a result, I remove the stent leaving the wire in place, and then after irrigating his bladder several times via the cystoscope, I then passed a 6 Brazilian by 24 cm double-J ureteral stent over the left Bentson guidewire into the kidney with a coil observed fluoroscopically in the renal pelvis, and 1 cystoscopically observed in his bladder. I then backloaded the cystoscope over the indwelling sensor wire on the right side, and similarly passed a another 6 Brazilian by 24 cm double-J ureteral stent over that wire into the renal pelvis where a coil was formed fluoroscopically in the renal pelvis and 1 cystoscopically formed in his bladder. I then replaced a new 18 Brazilian coud Shell catheter into his bladder with ease, and I placed 15 cc of sterile water in the balloon. The catheter was connected to a floor bag, and the patient was taken out of the lithotomy position. The catheter was connected to a StatLock, and he was awakened from general anesthesia. He was then transferred to a stretcher before being transferred to the recovery room in good condition. Complications: None Discharge disposition: 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 Thereafter, we will plan to remove the ureteral stents and assess for recurrence or persistence of the hydronephrosis. The entirety of this evaluation and management will need to be completed within the next 6 months maximum, prior to 07/03/2024.
--- NOTE | 2024-02-03 09:03 | RAD REPORT ---
Fluoroscopic time: 1 minute and 9 seconds
[2024-02-03] MEDS: POTASSIUM CL 40 MEQ in NA CHLORIDE 0.9% 500 ML IV ONE (09:37)
--- NOTE | 2024-02-03 10:38 | P.PN ---
Subjective Date of Service: 02/03/24 Chief Complaint: DWIGHT; AMS No event overnight, he is to be scheduled for urology intervention at this morning tentatively removal or exchange of double-J ureteral stents by his urologist, Dr. Tanner. Review of Systems is unable to be obtained Physical Examination - Vital Signs Temperature: 97.5 F Blood Pressure: 104/51 Pulse: 68 Respirations: 12 Pulse Ox (%): 97 - Physical Exam Other Physical/Emotional Findings: - Patient is not in the room, downstairs in operation room - Studies Microbiology Data (last 24 hrs): 01/29/24 07:49 Clean Catch Urine [place] Count - Final >100,000 CFU/ML. 01/29/24 07:49 Clean Catch Urine - Final Staph Aureus Assessment And Plan - Plan This is 83 [facility] with past medical history notable for obstructive uropathy secondary to BPH status post transurethral prostate, status post bilateral ureteral stents, CKD secondary to obstructive uropathy who presented to emergency room for evaluation of altered mental status #1 recurrent MSSA bacteremia with sepsis related to #3 Blood culture 4 out of 4 positive for methicillin sensitive Staphylococcus aureus, stable on cefazolin with renal adjustment, patient remained afebrile, leukocytosis resolved, repeat blood culture preliminary no growth in the past 24 hours. primary infection focus is obstructive uropathy, Transthoracic echocardiogram result reviewed, demonstrated no sign of bacterial endocarditis, no left ventricle ejection fraction, Old chart reviewed patient admitted in November 2023 with the same problem, treated with ceftriaxone for 2 weeks #2 catheter associated UTI with MSSA Urine culture identification and sensitivity reviewed, continue cefazolin Indwelling Shell catheter exchange after admission, keep Shell catheter in for #3 #3 severe bilateral hydronephrosis in spite of retained double-J ureteral stents CT of abdomen and pelvis on admission personally reviewed progressive severe bilateral hydronephrosis with double-J ureteral stents Patient underwent a urology convention, operative note reviewed, no definite occlusion of old double-J ureteral stent, but performed both ureteral stent exchange and indwelling Shell catheter instrument exchange in operation room. Urology recommend a follow-up in his clinic as outpatient for removal of new stent and reevaluation in a couple months. I talked to IR doctors at this hospital this morning they are unable to perform the procedure. #4 DWIGHT on CKD on current hemodialysis His renal function gradually improving, BUN/creatinine initially 115/8 but trending down stabilized around BUN/creatinine 47/4.1, good urine output 2 L over the past 24-hour off hemodialysis serum potassium 3.4, bicarb 23 today, currently hemodialysis on hold for #1, patient not indicating any urgent need for hemodialysis. Patient may not need further hemodialysis if today's urology intervention resolved obstructive neuropathy #5 metabolic encephalopathy secondary to #1 and #3 in advanced dementia Resolved, patient seems to be at his baseline #6 pneumonia in the right lower lobe associated #1 No sign of pneumonia symptoms, chest x-ray focal infiltration in the right lower lobe, no cavitation, stable #7 anemia of chronic disease Hemoglobin 9.7, stable without any transfusion, no clinical bleeding DVT prophylaxis enoxaparin subcu Disposition, [facility],
--- NOTE | 2024-02-03 11:41 | PN ---
Date of Progress Note: 02/03/2024 Subjective: The patient was admitted to the hospital with obstructive uropathy, uremia, and sepsis. The patient was initiated on dialysis. The patient had bacteremia. Temporary hemodialysis catheter was removed. Waiting for finalized repeated culture. The patient did undergo stent replacement tod ay with Shell replacement tolerated. Physical Examination: Vital Signs: Blood pressure 104/51, pulse of 68, afebrile. Chest: Clear to auscultation. Heart: S1 and S2. Regular. Abdomen: Soft, nontender. Genitourinary: Shell. Extremities: No edema. Neurologic: Alert. No focality. Laboratory Data: WBC 8.4, hemoglobin 9.2. Sodium 138, potassium 3.4, bicarb 23, BUN 47, creatinine 4.1, calcium 7.1. Current Medications: The patient is on include cefazolin, ceftriaxone, Flomax, mupirocin, Nepro. Assessment And Plan: 1.Acute kidney injury on advanced chronic kidney disease. No uremia. No hyperkalemia. With bacter emia. I am going to continue to monitor the patient. Waiting for negative of blood culture to final ize. Then we will replace the tunneled hemodialysis catheter and resume dialysis for the patient. W e will skip dialysis today again. 2.Hypokalemia: We will hold on any supplement. 3.Hyponatremia, dilutional. We will monitor. 4.Hypertension, controlled, optimal. 5.Bacteremia. Continue current antibiotic. We will follow up with Primary. 6.Obstructive uropathy, status post stent replacement and Shell. We will follow up with Urology. EMORY Voice ID: [id number] Report ID: [id number]
[2024-02-03] MEDS: D5 0.45 NS 1,000 ML IV SCH (11:54)
[2024-02-03 12:04] VITALS: BMI 18.6
[2024-02-04 05:45] LABS: Absolute Eosinophils 0.6 K/uL (0-0.5); Absolute Monocytes 0.8 K/uL (0.1-1.3); Absolute Neutrophil 5.9 K/uL (1.8-8.0); Basophils % 0.5 % (0-1.3); Eosinophils % 7.2 % (0-4.4); Hematocrit 26.1 % (39.6-49.0); Hemoglobin 8.9 g/dL (13.6-17.9); Lymphocytes % 11.7 % (15.3-44.8); MCH 33.7 pg (27.0-35.0); MCV 99.2 fL (80-100); MPV 9.1 fL (7.6-11.3); Monocytes % 9.4 % (3.3-12.3); Neutrophils % 71.2 % (41.7-73.7); Platelets 296 thou/uL (152-406); RBC Red Blood Cell Count 2.63 M/uL (4.33-5.43); Red Cell Distribution Width 13.4 % (12.1-15.2)
[2024-02-04 06:09] LABS: Anion Gap 10.5 mEq/L (5.0-15.0); Potassium 3.5 mEq/L (3.5-5.1)
[2024-02-04] MEDS: POTASSIUM 25 MEQ EFFERV TAB PO ONE (10:12)
--- NOTE | 2024-02-04 10:40 | P.PN ---
Subjective Date of Service: 02/04/24 Chief Complaint: DWIGHT; AMS Subjective: No new changes No event overnight, he underwent exchange of bilateral double-J ureteral stent and indwelling Shell catheter exchange yesterday, remained afebrile, no complaint, good urine output through Shell catheter 2.2 L over the 24-hour clear heidy-colored urine, Review of Systems Other: Consitutional; fever(-), chills (-), rigor(-), night sweat(-), unintentional weight loss(-), malaise (-) HEENT; diplopia (-), rhinorrhea (-), epistaxis (-), otorrhea (-), otalgia (-) Respiratory; shortness of breath (-), wheezing (-), cough (-), sputum (-), pleuritic chest pain (-) Cardiovascular; chest pain (-), peripheral edema (-), paroxysmal nocturnal dyspnea (-), orthopnea (-) Gastrointestinal; nausea (-), vomiting (-), abdominal pain (-), diarrhea (-), constipation (-), melena (-), hematochezia (-) Genitourinary; urinary frequency (-), dysuria (-), urgency (-), flank pain (-), gross hematuria (-), incontinence (-) Skin; rash (-), 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 General: Not acutely ill looking, in no apparent distress,. HEENT: Normocephalic, atraumatic, nonicteric sclera, nonanemic conjunctive. Neck: Supple, without JVD or goiter or thyroid mass. Respiratory: Normal breathing effort, clear to auscultation bilaterally, no crackles no wheezing or rhonchi. Cardiovascular: Regular rate and rhythm, S1, S2 normal, no murmur no gallop. Gastrointestinal: Normal bowel sounds, nondistended, nontender, No ascites, , No masses, no hepatosplenomegaly. Extremities : No clubbing, No peripheral edema, full range of motion, no deformity, no muscle atrophy, urine bag containing clear heidy-colored urine. Integumentary: No rashes, petechia, suspected lesions. Lymphatics: No axilla or cervical lymphadenopathy. Neurology; alert awake oriented x2, no focal neurologic deficit, normal affection . mood and behavior. 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 who presented to emergency room for evaluation of altered mental status #1 recurrent MSSA bacteremia with sepsis related to #3 Remained afebrile, leukocytosis resolved, blood culture 4 out of 4 positive for methicillin sensitive Staphylococcus aureus, stable on cefazolin with renal adjustment, repeat blood culture preliminary no growth in the past 24 hours. primary infection focus is obstructive uropathy, Transthoracic echocardiogram result no sign of bacterial endocarditis, normal left ventricle ejection fraction, Old chart reviewed patient admitted in November 2023 with the same problem, treated with ceftriaxone for 2 weeks #2 catheter associated UTI with MSSA #3 bladder outlet obstruction secondary to BPH with concern for prostate cancer Urine culture identification and sensitivity reviewed, continue cefazolin Indwelling Shell catheter exchange after admission and again February 02, keep Shell catheter in for #3 #4 severe bilateral hydronephrosis in spite of retained double-J ureteral stents status post exchange both ureteral catheter on February 02 CT of abdomen and pelvis on admission personally reviewed progressive severe bilateral hydronephrosis with double-J ureteral stents operative note reviewed, no definite occlusion of old double-J ureteral stent, but performed both ureteral stent exchange and indwelling Shell catheter instrument exchange in operation room. Urology recommend a follow-up in his clinic as outpatient for urodynamic study, removal of new stent and reevaluation in 6 months. IR doctors at this hospital are unable to perform percutaneous nephrostomy. #5 DWIGHT on CKD off hemodialysis His renal function gradually improving, BUN/creatinine initially 115/8 but trending down stabilized around BUN/creatinine 47/4, good urine output 2 L all day over off hemodialysis serum potassium 3.5, bicarb 24 today, currently hemodialysis on hold for #1, patient not indicating any urgent need for hemodialysis. Patient will not need further hemodialysis if his kidney function is stable and good urine output after his urologic intervention #6 metabolic encephalopathy secondary to #1 and #3 in advanced dementia Resolved, patient seems to be at his baseline #7 pneumonia in the right lower lobe associated #1 No sign or symptom of pneumonia , chest x-ray focal infiltration in the right lower lobe, no cavitation, stable #8 anemia of chronic disease Hemoglobin around 9, stable without any transfusion, no clinical bleeding DVT prophylaxis enoxaparin subcu Disposition, plan [facility] to [facility] with IV antib iotics. Duration of IV antibiotics will be determined at the time of discharge based on clinical response to antibiotics
[2024-02-04] MEDS: POTASSIUM CL SA 10 MEQ TAB PO ONE (20:18)
[2024-02-05 05:51] LABS: Anion Gap 11.2 mEq/L (5.0-15.0); Potassium 4.2 mEq/L (3.5-5.1)
--- NOTE | 2024-02-05 10:17 | P.PN ---
Subjective Date of Service: 02/05/24 Chief Complaint: DWIGHT; AMS Subjective: No new changes No event overnight, he has no complaint, his mental status back to his baseline, communicable and inactive, urine output 1.5 L and indwelling Shell catheter. Patient is n.p.o. for another dialysis catheter placement by medical art therapist for nurse at bedside Review of Systems Other: Consitutional; fever(-), chills (-), rigor(-), night sweat(-), unintentional weight loss(-), malaise (-) HEENT; diplopia (-), rhinorrhea (-), epistaxis (-), otorrhea (-), otalgia (-) Respiratory; shortness of breath (-), wheezing (-), cough (-), sputum (-), pleuritic chest pain (-) Cardiovascular; chest pain (-), peripheral edema (-), paroxysmal nocturnal dyspnea (-), orthopnea (-) Gastrointestinal; nausea (-), vomiting (-), abdominal pain (-), diarrhea (-), constipation (-), melena (-), hematochezia (-) Genitourinary; urinary frequency (-), dysuria (-), urgency (-), flank pain (-), gross hematuria (-), incontinence (-) Skin; rash (-), 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 General: Not acutely ill looking, in no apparent distress,. HEENT: Normocephalic, atraumatic, nonicteric sclera, nonanemic conjunctive. Neck: Supple, without JVD or goiter or thyroid mass. Respiratory: Normal breathing effort, clear to auscultation bilaterally, no crackles no wheezing or rhonchi. Cardiovascular: Regular rate and rhythm, S1, S2 normal, no murmur no gallop. Gastrointestinal: Normal bowel sounds, nondistended, nontender, No ascites, , No masses, no hepatosplenomegaly. Extremities : No clubbing, No peripheral edema, full range of motion, no deformity, no muscle atrophy, urine bag containing clear heidy-colored urine. Integumentary: No rashes, petechia, suspected lesions. Lymphatics: No axilla or cervical lymphadenopathy. Neurology; alert awake oriented x2, no focal neurologic deficit, normal affection . mood and behavior. Assessment And Plan - Plan This is 83 [facility] resident with past medical history notable for obstructive uropathy secondary to BPH status post transurethral prostate, status post bilateral ureteral stents, CKD secondary to obstructive uropathy who presented to emergency room for evaluation of altered mental status #1 recurrent MSSA bacteremia with sepsis related to #3 Remained afebrile, leukocytosis resolved, blood culture 4 out of 4 positive for methicillin sensitive Staphylococcus aureus, stable on cefazolin with renal adjustment, repeat blood culture preliminary no growth in the past 24 hours. primary infection focus is obstructive uropathy, seems to be complicated MSSA bacteremia, transthoracic echocardiogram result no sign of bacterial endocarditis, Old chart reviewed patient admitted in November 2023 with the same problem, treated with ceftriaxone for 2 weeks Culture of the tip of the temporary dialysis catheter growing MRSA, I will order repeat blood culture x 2 today #2 catheter associated UTI with MSSA #3 bladder outlet obstruction secondary to BPH with concern for prostate cancer Urine culture identification and sensitivity reviewed, continue cefazolin Indwelling Shell catheter exchange after admission and again February 02, keep Shell catheter in #4 severe bilateral hydronephrosis likely due to occluded retained ureteral stents status post exchange of both ureteral stents on February 02 CT of abdomen and pelvis on admission progressive severe bilateral hydronephrosis with double-J ureteral stents operative note reviewed, no definite occlusion of old double-J ureteral stent, but performed both ureteral stent exchange and indwelling Shell catheter instrument exchange in operation room. Urology recommend a follow-up in his clinic as outpatient for urodynamic study, removal of new stent and reevaluation in 6 months. IR doctors at this hospital are unable to perform percutaneous nephrostomy. #5 DWIGHT on CKD off hemodialysis His renal function gradually improving, BUN/creatinine initially 115/8 but trending down stabilized around BUN/creatinine 47/4, good urine output 1-2 L a day off hemodialysis, no serious electrolyte imbalance, , currently hemodialysis on hold for #1, he can continue to hold dialysis for now . Patient will likely not need further hemodialysis if his kidney function is stable and good urine output after his urologic intervention #6 metabolic encephalopathy secondary to #1 and #3 in advanced dementia Resolved, patient seems to be at his baseline #7 pneumonia in the right lower lobe associated #1 No sign or symptom of pneumonia , chest x-ray stable focal infiltration in the right lower lobe, no cavitation, I will get a follow-up chest x-ray today. #8 anemia of chronic disease Hemoglobin around 9, stable without any transfusion, no clinical bleeding DVT prophylaxis enoxaparin subcu Disposition, plan [facility] to [facility] with IV antibiotics. Duration of IV antibiotics will be determined at the time of discharge based on clinical response to antibiotics and repeat culture result.
--- NOTE | 2024-02-05 10:30 | RAD REPORT ---
EXAMINATION: ONE VIEW CHEST XR CLINICAL INDICATION: Follow-up on a possible staphylococcal pneumonia TECHNIQUE: Frontal chest projection is submitted. Examination is limited by patient positioning and t echnique. COMPARISON: 01/30/2024 FINDINGS: The lungs are diffusely emphysematous but grossly clear. The heart is upper limit of normal in size. No displaced fractures identified. Aortic atherosclerosis. IMPRESSION: COPD without an acute process suspected.
--- NOTE | 2024-02-06 10:20 | P.PN ---
Subjective Date of Service: 02/06/24 Chief Complaint: DWIGHT; AMS Subjective: No new changes No event overnight, he has no complaint, he says he is doing fine. Review of Systems Other: Consitutional; fever(-), chills (-), rigor(-), night sweat(-), unintentional weight loss(-), malaise (-) HEENT; diplopia (-), rhinorrhea (-), epistaxis (-), otorrhea (-), otalgia (-) Respiratory; shortness of breath (-), wheezing (-), cough (-), sputum (-), pleuritic chest pain (-) Cardiovascular; chest pain (-), peripheral edema (-), paroxysmal nocturnal dyspnea (-), orthopnea (-) Gastrointestinal; nausea (-), vomiting (-), abdominal pain (-), diarrhea (-), constipation (-), melena (-), hematochezia (-) Genitourinary; urinary frequency (-), dysuria (-), urgency (-), flank pain (-), gross hematuria (-), incontinence (-) Skin; rash (-), 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 General: Not acutely ill looking, in no apparent distress,. HEENT: Normocephalic, atraumatic, nonicteric sclera, nonanemic conjunctive. Neck: Supple, without JVD or goiter or thyroid mass. Respiratory: Normal breathing effort, clear to auscultation bilaterally, no crackles no wheezing or rhonchi. Cardiovascular: Regular rate and rhythm, S1, S2 normal, no murmur no gallop. Gastrointestinal: Normal bowel sounds, nondistended, nontender, No ascites, , No masses, no hepatosplenomegaly. Extremities : No clubbing, No peripheral edema, full range of motion, no deformity, no muscle atrophy, urine bag containing clear heidy-colored urine. Integumentary: No rashes, petechia, suspected lesions. Lymphatics: No axilla or cervical lymphadenopathy. Neurology; alert awake oriented x2, no focal neurologic deficit, normal affection . mood and behavior. 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 who presented to emergency room for evaluation of altered mental status #1 recurrent MSSA bacteremia with sepsis related to #3 Remained afebrile, leukocytosis resolved, blood culture 4 out of 4 positive for methicillin sensitive Staphylococcus aureus, stable on cefazolin with renal adjustment, repeat blood culture preliminary no growth for 5 days, second repeat culture no growth preliminary primary infection focus is obstructive uropathy, seems to be complicated MSSA bacteremia, transthoracic echocardiogram result no sign of bacterial endocarditis, Old chart reviewed patient admitted in November 2023 with the same problem, treated with ceftriaxone for 2 weeks Culture of the tip of the temporary dialysis catheter growing MRSA, I suspected sensitivity result is not accurate #2 catheter associated UTI with MSSA #3 bladder outlet obstruction secondary to BPH with concern for prostate cancer Urine culture growing MSSA continue cefazolin Indwelling Shell catheter exchange after admission and again February 02, keep Shell catheter in #4 severe bilateral hydronephrosis likely due to occluded retained ureteral stents status post exchange of both ureteral stents on February 02 CT of abdomen and pelvis on admission progressive severe bilateral hydronephrosis with double-J ureteral stents operative note reviewed, no definite occlusion of old double-J ureteral stent, but performed both ureteral stent exchange and indwelling Shell catheter instrument exchange in operation room. Urology recommend a follow-up in his clinic as outpatient for urodynamic study, removal of new stent and reevaluation in 6 months. #5 DWIGHT on CKD off hemodialysis His renal function gradually improving, BUN/creatinine initially 115/8 but trending down stabilized around BUN/creatinine 40/4, good urine output 1-2 L a day off hemodialysis over the past 1 week, no serious electrolyte imbalance, currently hemodialysis on hold for #1, he can continue to hold dialysis for now . I do not believe patient need renal replacement therapy. if his kidney function get worse or patient has persistent bacteremia, I would recommend bilateral percutaneous nephrostomy to control the source of infection and restore renal function instead of hemodialysis. IR doctors at this hospital are unable to perform percutaneous nephrostomy. I will order a follow-up CBC BMP tomorrow #6 metabolic encephalopathy secondary to #1 and #3 in advanced dementia Resolved, patient seems to be at his baseline #7 pneumonia in the right lower lobe associated #1 Resolved on repeat chest x-ray on February 04, no sign or symptom of pneumonia, #8 anemia of chronic disease Hemoglobin around 9, stable without any transfusion, no clinical bleeding DVT prophylaxis enoxaparin subcu Disposition, plan to discharge back to [facility] next week with IV antibiotics. Duration of IV antibiotics will be determined at the time of discharge based on clinical response to antibiotics and repeat culture result.
[2024-02-07 07:31] LABS: Hematocrit 27.5 % (39.6-49.0); Hemoglobin 8.7 g/dL (13.6-17.9); MCHC 31.7 g/dL (32.0-36.0); MCV 101.1 fL (80-100); MPV 9.9 fL (7.6-11.3); Platelets 331 thou/uL (152-406); RBC Red Blood Cell Count 2.72 M/uL (4.33-5.43); Red Cell Distribution Width 13.8 % (12.1-15.2)
[2024-02-07 07:42] LABS: Anion Gap 12.2 mEq/L (5.0-15.0); Potassium 4.2 mEq/L (3.5-5.1)
--- NOTE | 2024-02-07 10:43 | P.PN ---
Subjective Date of Service: 02/07/24 Chief Complaint: DWIGHT; AMS Subjective: No new changes No event overnight, he has no complaint, he says he is doing fine. No fever noted, no chills or rigor. 1.5 L urine output in indwelling Shell catheter overnight. Review of Systems Other: Consitutional; fever(-), chills (-), rigor(-), night sweat(-), unintentional weight loss(-), malaise (-) HEENT; diplopia (-), rhinorrhea (-), epistaxis (-), otorrhea (-), otalgia (-) Respiratory; shortness of breath (-), wheezing (-), cough (-), sputum (-), pleuritic chest pain (-) Cardiovascular; chest pain (-), peripheral edema (-), paroxysmal nocturnal dyspnea (-), orthopnea (-) Gastrointestinal; nausea (-), vomiting (-), abdominal pain (-), diarrhea (-), constipation (-), melena (-), hematochezia (-) Genitourinary; urinary frequency (-), dysuria (-), urgency (-), flank pain (-), gross hematuria (-), incontinence (-) Skin; rash (-), 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 General: Not acutely ill looking, in no apparent distress,. HEENT: Normocephalic, atraumatic, nonicteric sclera, nonanemic conjunctive. Neck: Supple, without JVD or goiter or thyroid mass. Respiratory: Normal breathing effort, clear to auscultation bilaterally, no crackles no wheezing or rhonchi. Cardiovascular: Regular rate and rhythm, S1, S2 normal, no murmur no gallop. Gastrointestinal: Normal bowel sounds, nondistended, nontender, No ascites, , No masses, no hepatosplenomegaly. Extremities : No clubbing, No peripheral edema, full range of motion, no deformity, no muscle atrophy, urine bag containing clear heidy-colored urine. Integumentary: No rashes, petechia, suspected lesions. Lymphatics: No axilla or cervical lymphadenopathy. Neurology; alert awake oriented x3, no focal neurologic deficit, normal affection . mood and behavior. 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 who presented to emergency room for evaluation of altered mental status #1 recurrent MSSA bacteremia with sepsis related to #3 Remained afebrile, leukocytosis resolved, blood culture 4 out of 4 positive for methicillin sensitive Staphylococcus aureus, stable on cefazolin with renal adjustment, repeat blood culture on January 31 no growth for 5 days, second repeat culture on February 04 no growth preliminary primary infection focus is obstructive uropathy, seems to be complicated 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 transthoracic echocardiogram result no sign of bacterial endocarditis, Old chart reviewed patient admitted in November 2023 with the same problem, treated with ceftriaxone for 2 weeks Culture of the tip of the temporary dialysis catheter growing MRSA, I suspected sensitivity result is not accurate, I will continue to treat as MSSA bacteremia #2 catheter associated UTI with MSSA #3 bladder outlet obstruction secondary to BPH with concern for prostate cancer Urine culture growing MSSA continue cefazolin Indwelling Shell catheter exchange after admission and again February 02, keep Shell catheter in #4 severe bilateral hydronephrosis likely due to occluded retained ureteral stents status post exchange of both ureteral stents on February 02 CT of abdomen and pelvis on admission progressive severe bilateral hydronephrosis with double-J ureteral stents operative note, no definite occlusion of old double-J ureteral stent, but performed both ureteral stent exchange and indwelling Shell catheter instrument exchange in operation room. Urology recommend a follow-up in his clinic as outpatient for urodynamic study, removal of new stent and reevaluation in 6 months. #5 DWIGHT on CKD off hemodialysis His renal function gradually improving, BUN/creatinine initially 115/8 but trending down stabilized around BUN/creatinine 40/4, off hemodialysis over the past 1 week, no serious electrolyte imbalance, euvolemia, good urine output 1-2 L a day currently hemodialysis on hold. I do not believe patient need further renal replacement therapy. if his kidney function get worse or patient has persistent bacteremia, I would recommend bilateral percutaneous nephrostomy to control the source of infection and restore renal function instead of hemodialysis. IR doctors at this hospital are unable to perform percutaneous nephrostomy. #6 metabolic encephalopathy secondary to #1 and #3 in advanced dementia Resolved, patient is at his baseline #7 pneumonia in the right lower lobe as a metastatic infection associated with #1 Resolved on repeat chest x-ray on February 04, #8 anemia of chronic disease Hemoglobin around 9, stable without any transfusion, no clinical bleeding DVT prophylaxis enoxaparin subcu Disposition, plan to discharge back to [facility] next week with IV antibiotics. Duration of IV antibiotics will be determined at the time of discharge based on clinical response to antibiotics and repeat culture result.
[2024-02-08 08:12] LABS: Absolute Basophils 0.1 K/uL (0-0.5); Absolute Eosinophils 0.3 K/uL (0-0.5); Absolute Lymphocytes (CBC) 1.4 K/uL (0.7-4.9); Absolute Monocytes 0.6 K/uL (0.1-1.3); Absolute Neutrophil 4.5 K/uL (1.8-8.0); Basophils % 0.9 % (0-1.3); Eosinophils % 4.3 % (0-4.4); Hematocrit 28.7 % (39.6-49.0); Hemoglobin 9.4 g/dL (13.6-17.9); Lymphocytes % 20.3 % (15.3-44.8); MCH 32.9 pg (27.0-35.0); MCHC 32.9 g/dL (32.0-36.0); Monocytes % 8.8 % (3.3-12.3); Neutrophils % 65.7 % (41.7-73.7); Platelets 360 thou/uL (152-406); RBC Red Blood Cell Count 2.87 M/uL (4.33-5.43); Red Cell Distribution Width 13.6 % (12.1-15.2)
[2024-02-08 08:18] LABS: Albumin 2.4 g/dL (3.4-5.0); Anion Gap 11.1 mEq/L (5.0-15.0); Phosphorus 2.9 mg/dL (2.5-4.9); Potassium 4.1 mEq/L (3.5-5.1)
--- NOTE | 2024-02-08 10:33 | P.PN ---
Subjective Date of Service: 02/09/24 Chief Complaint: DWIGHT; AMS No overnight complaint Review of Systems 10-point ROS is otherwise unremarkable General: As per HPI Physical Examination - Vital Signs Temperature: 98.1 F Blood Pressure: 120/56 Pulse: 90 Respirations: 12 Pulse Ox (%): 97 - Physical Exam General: Alert, In no apparent distress, Oriented x3 HEENT: Atraumatic, Normocephalic Neck: Supple, 2+ carotid pulse no bruit Respiratory: Clear to auscultation bilaterally, Normal air movement Cardiovascular: No edema, Normal pulses, Regular rate/rhythm Capillary refill: <2 Seconds Gastrointestinal: Normal bowel sounds, Soft and benign Musculoskeletal: No clubbing, No swelling Integumentary: No breakdown, No significant lesion Neurological: Normal speech, Normal strength at 5/5 x4 extr, Sensation intact, Normal affect Urinary: Shell catheter Assessment And Plan - Plan Assessment And Plan: Acute renal failure improved Acute kidney injury on advanced chronic kidney disease Obstructive uropathy, status post stent replacement and Shell. Urology followoing No uremia. No hyperkalemia. bacteremia. I am going to continue to monitor the patient. last HD 01/30, cr stable while off HD renal dose meds Hypokalemia: improved Trend electrolyte replace prn Hypertension, controlled Resume appropriate home Recurrent MSSA Bacteremia improved Continue current antibiotic. repeated Bcx negative to date Disposition assisted facility Discharge Plan: [facility] - Code Status/Comfort Care Code Status: Full Code Critical Care: No Time Spent Managing PTS Care (In Minutes): 35
[2024-02-09 06:46] LABS: Absolute Basophils 0.1 K/uL (0-0.5); Absolute Eosinophils 0.4 K/uL (0-0.5); Absolute Lymphocytes (CBC) 1.2 K/uL (0.7-4.9); Absolute Monocytes 0.9 K/uL (0.1-1.3); Absolute Neutrophil 4.4 K/uL (1.8-8.0); Basophils % 1.2 % (0-1.3); Eosinophils % 5.4 % (0-4.4); Hematocrit 26.2 % (39.6-49.0); Hemoglobin 8.8 g/dL (13.6-17.9); Lymphocytes % 17.7 % (15.3-44.8); MCH 33.3 pg (27.0-35.0); MCHC 33.6 g/dL (32.0-36.0); MCV 98.9 fL (80-100); MPV 9.2 fL (7.6-11.3); Monocytes % 12.5 % (3.3-12.3); Neutrophils % 63.2 % (41.7-73.7); Nucleated Red Blood Cells % 0.1 % (0-0); Platelets 364 thou/uL (152-406); RBC Red Blood Cell Count 2.65 M/uL (4.33-5.43); Red Cell Distribution Width 13.7 % (12.1-15.2)
[2024-02-09 06:48] LABS: Albumin 2.4 g/dL (3.4-5.0); Anion Gap 7.5 mEq/L (5.0-15.0); Phosphorus 2.7 mg/dL (2.5-4.9); Potassium 4.5 mEq/L (3.5-5.1)
--- NOTE | 2024-02-09 09:55 | P.DS ---
Admission Date: 01/29/24 Discharge Date: 02/09/24 Reason for Admission: DWIGHT; AMS Brief History of Present Illness: 83-year-old gentleman with a history of prostate issues. He has had benign prostatic hypertrophy and has been following up with a urologist. He developed a urinary tract infection and laying on the floor for about 2 to 3 days and not getting up. He became really septic from a urinary tract infection. Patient developed kidney failure from this prior infections. Since June, patient has been follow-up for chronic kidney disease. Patient moved to [place] and has been staying there since that time. Patient has been fighting renal failure problems since that time and patient is also been having recurrent urinary tract infections. Since patient has been sick he has been wearing the adult diaper and has had frequent urinary tract infections. Patient has had Shell catheters been placed in has removed them and developed hematuria, and he had to get transferred to [facility] in [place] because of the persistent hematuria. Last week, family also noticed some hematuria. Dr. Mcgraw, is his urologist in the local area. Dr. Hayward is his pediatric cardiologist. on evaluation Patient with uremic encephalopathy vs bacteremia with sepsis with toxic encephalopathy. CT traumagram was performed that was negative. was admitted for further evaluation - Physical Exam General: Alert, In no apparent distress, Oriented x2 HEENT: Atraumatic, Normocephalic Neck: Supple, 2+ carotid pulse no bruit Respiratory: Clear to auscultation bilaterally, Normal air movement Cardiovascular: No edema, Normal pulses, Regular rate/rhythm Capillary refill: <2 Seconds Gastrointestinal: Normal bowel sounds, Soft and benign Musculoskeletal: No clubbing, No swelling Integumentary: No breakdown, No significant lesion Neurological: Normal speech, Normal strength at 5/5 x4 extr, Sensation intact Hospital Course: 83-year-old gentleman with a history of BPH, obstructive uropathy, bilateral hy dronephrosis, prostate issues. He has had benign prostatic hypertrophy and has been following up with a urologist. He developed a urinary tract infection and laying on the floor for about 2 to 3 days and not getting up. He became really septic from a urinary tract infection. Patient developed kidney failure from this prior infections. Since June, patient has been follow-up for chronic kidney disease. Patient moved to [place] and has been staying there since that time. Patient has been fighting renal failure problems since that time and patient is also been having recurrent urinary tract infections. During this admission, Was treated for acute renal failure from obstructive uropathy, received temporary hemodialysis. His BUN and creatinine is at his baseline, per nephrology patient can discharge to [place], follow-up with nephrology in 2 weeks. He was noted to have bacteremia, acute cystitis was treated with IV antibiotics, recent blood cultures are negative. Assessment Uremic,/metabolic encephalopathy, improved with dialysis, treatment plan Obstructive uropathy-patient was seen by Dr. 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 The entirety of this evaluation and management will need to be completed within the next 6 months maximum, prior to 07/03/2024. Continue home medicines as previously prescribed GOAL: Clear understanding of disease process CT scan showing bilateral hydronephrosis which is most likely related to obstructive uropathy secondary to BPH. INSTRUCTIONS: Physician Discharge Instructions: -Follow-up with Dr. Mcgraw office for appointment -Follow-up with nephrology in 2 weeks -Follow-up with PCP in 1 to 2 weeks -Please call Dr. Giles at [phone] if any questions regarding hospital stay -Please call nursing station at [phone] if any nursing or medication questions -Return to the emergency room if symptoms worsen Diet: ADA, low sodium Activity: Fall precautions <Sofi Ledbetter - Last Filed: 02/09/24 13:27> Admission Date: 01/29/24 Discharge Date: 02/09/24 - Problems (1) DWIGHT (acute kidney injury) Status: Acute (2) BPH with urinary obstruction Status: Chronic (3) Complicated UTI (urinary tract infection) Status: Acute (4) Sepsis due to urinary tract infection Status: Acute (5) Urinary retention Status: Chronic (6) Obstructive uropathy Status: Chronic (7) Hyperkalemia Status: Acute (8) Leukocytosis Status: Acute Hospital Course: Chart has been reviewed. Events of the last 24 hours have been noted. Case discussed with NETO. I performed a substantial part of the MDM during this patient's care today. I personally made or approved the documented management plan and acknowledge its risk of complications. I agree with the findings and documentation provided in the NETO's notes Patient has done well during hospital stay. Patient is clinically doing much better. Labs are stable. At this time, patient is stable for discharge with outpatient follow-up with PCP and specialist. Patient is told to call me if he has any questions. <Niru Giles - Last Filed: 02/16/24 03:45> Disposition: TRANSFER TO ASSISTED Discharge Condition: GOOD Vital Signs/Physical Exam: Temp Pulse Resp BP Pulse Ox 98.1 F 80 12 106/55 L 96 02/09/24 08:00 02/09/24 08:00 02/09/24 08:00 02/09/24 08:00 02/09/24 08:00 Other Physical/Emotional Findings: - Physical Exam. General: Not acutely ill looking, in no apparent distress,. HEENT: Normocephalic, atraumatic, nonicteric sclera, nonanemic conjunctive. Neck: Supple, without JVD or goiter or thyroid mass. Respiratory: Normal breathing effort, clear to auscultation bilaterally, no crackles no wheezing or rhonchi. Cardiovascular: Regular rate and rhythm, S1, S2 normal, no murmur no gallop. Gastrointestinal: Normal bowel sounds, nondistended, nontender, No ascites, , No masses, no hepatosplenomegaly. Extremities : No clubbing, No peripheral edema, full range of motion, no de formity, no muscle atrophy, urine bag containing clear heidy-colored urine. Integumentary: No rashes, petechia, suspected lesions. Lymphatics: No axilla or cervical lymphadenopathy. Neurology; alert awake oriented x3, no focal neurologic deficit, normal affection . mood and behavior. Laboratory Data at Discharge: WBC 6.90 thou/uL (4.3-10.9) 02/09/24 06:13 Hgb 8.8 g/dL (13.6-17.9) L 02/09/24 06:13 Hct 26.2 % (39.6-49.0) L 02/09/24 06:13 Plt Count 364 thou/uL (152-406) 02/09/24 06:13 PT 12.5 SECONDS (9.4-12.5) 01/29/24 08:00 INR 1.12 01/29/24 08:00 Sodium 137 mEq/L (136-145) 02/09/24 06:13 Potassium 4.5 mEq/L (3.5-5.1) 02/09/24 06:13 BUN 52 mg/dL (7-18) H 02/09/24 06:13 Creatinine 3.65 mg/dL (0.70-1.30) H 02/09/24 06:13 Glucose 89 mg/dL (74-106) 02/09/24 06:13 Phosphorus 2.7 mg/dL (2.5-4.9) 02/09/24 06:13 Magnesium 1.9 mg/dL (1.6-2.4) 02/01/24 05:05 Total Bilirubin 0.4 mg/dL (0.2-1.0) 01/30/24 21:03 AST 14 U/L (15-37) L 01/30/24 21:03 ALT 15 U/L (16-61) L 01/30/24 21:03 Alkaline Phosphatase 55 U/L (45-117) 01/30/24 21:03 <Sofi Ledbetter - Last Filed: 02/09/24 13:27> Vital Signs/Physical Exam: Temp Pulse Resp BP Pulse Ox 98.1 F 90 12 120/56 L 97 02/09/24 13:34 02/09/24 13:34 02/09/24 13:34 02/09/24 13:34 02/09/24 13:34 General: Alert, In no apparent distress, Oriented x3 Laboratory Data at Discharge: WBC 6.90 thou/uL (4.3-10.9) 02/09/24 06:13 Hgb 8.8 g/dL (13.6-17.9) L 02/09/24 06:13 Hct 26.2 % (39.6-49.0) L 02/09/24 06:13 Plt Count 364 thou/uL (152-406) 02/09/24 06:13 PT 12.5 SECONDS (9.4-12.5) 01/29/24 08:00 INR 1.12 01/29/24 08:00 Sodium 137 mEq/L (136-145) 02/09/24 06:13 Potassium 4.5 mEq/L (3.5-5.1) 02/09/24 06:13 BUN 52 mg/dL (7-18) H 02/09/24 06:13 Creatinine 3.65 mg/dL (0.70-1.30) H 02/09/24 06:13 Glucose 89 mg/dL (74-106) 02/09/24 06:13 Phosphorus 2.7 mg/dL (2.5-4.9) 02/09/24 06:13 Magnesium 1.9 mg/dL (1.6-2.4) 02/01/24 05:05 Total Bilirubin 0.4 mg/dL (0.2-1.0) 01/30/24 21:03 AST 14 U/L (15-37) L 01/30/24 21:03 ALT 15 U/L (16-61) L 01/30/24 21:03 Alkaline Phosphatase 55 U/L (45-117) 01/30/24 21:03 <Niru Giles - Last Filed: 02/16/24 03:45> Time spent managing pt's care (in minutes): 45 <Sofi Ledbetter - Last Filed: 02/09/24 13:27> <Niru Giles - Last Filed: 02/16/24 03:45> Home Medications: Acetaminophen [8 Hour Acetaminophen] 650 mg PO Q6H PRN 01/29/24 Cranberry Fruit [Cranberry] 450 mg PO DAILY 01/29/24 Ferrous Sulfate [Ferrous Sulfate*] 325 mg PO TID 01/29/24 Finasteride [Proscar*] 5 mg PO DAILY 01/29/24 Levothyroxine [Synthroid*] 88 mcg PO DAILY 01/29/24 Mirtazapine [Remeron*] 15 mg PO DAILY 01/29/24 Tamsulosin HCl [Flomax] 0.4 mg PO BEDTIME 01/29/24 Tamsulosin [Flomax*] 0.4 mg PO BEDTIME cap 02/09/24 Physician Discharge Instructions: PROBLEM: UTI, DWIGHT, Sepsis GOAL: Clear understanding of disease process INSTRUCTIONS: Diet: Renal Activity: Fall precautions 83-year-old gentleman with a history of BPH, obstructive uropathy, bilateral hydronephrosis, prostate issues. He has had benign prostatic hypertrophy and has been following up with a urologist. He developed a urinary tract infection and laying on the floor for about 2 to 3 days and not getting up. He became really septic from a urinary tract infection. Patient developed kidney failure from this prior infections. Since June, patient has been follow-up for chronic kidney disease. Patient moved to [place] and has been staying there since that time. Patient has been fighting renal failure problems is also been having recurrent urinary tract infections. While inpatient Mr. Izaguirre was treated for acute renal failure from obstructive uropathy, received temporary hemodialysis. His BUN and creatinine has improved to baseline, per nephrology outpatient. Patient can discharge to [place], follow-up with nephrology in 2 weeks. He was noted to have bacteremia, was treated with IV antibiotics, recent blood cultures are negative. Discharged home with Shell catheter, follow-up with urology, nephrology after discharge Assessment Uremic,/metabolic encephalopathy, improved with dialysis, treatment plan Obstructive uropathy-patient was seen by Dr. Mcgraw while inpatient- DWIGHT with CKD-worsening renal failure, required temporary hemodialysis-improved, hemodialysis discontinued Sepsis secondary acute cystitis, was treated with IV antibiotics-resolved Streptococcal urosepsis-resolved Persistent bilateral hydronephrosis-urology following Chronic urinary retention-was evaluated by urology Urinary retention, was treated with Shell on admission, Shell is discontinued patient is voiding per urinal. Hyperkalemia resolved with hemodialysis Leukocytosis likely secondary from acute cystitis has resolved Bacteremia- recent blood cultures are negative, no clinical finding/evidence of bacteremia Elevated troponin most likely secondary to fluid volume overload, NM type II cardiology was consulted while inpatient, no reported chest pain-required no further workup Discharged to senior care facility, with Shell catheter, follow-up with urology, nephrology after discharge MSSA bacteremia with sepsis- cefazolin with renal adjustment-while inpatient Culture of the tip of the temporary dialysis catheter growing MRSA, I suspected sensitivity result is not accurate, I will continue to treat as MSSA 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 Thereafter, we will plan to remove the ureteral stents and assess for recurrence or persistence of the hydronephrosis. The entirety of this evaluation and management will need to be completed within the next 6 months maximum, prior to 07/03/2024. Continue home medicines as previously prescribed GOAL: Clear understanding of disease process CT scan showing bilateral hydronephrosis which is most likely related to obstructive uropathy secondary to BPH. INSTRUCTIONS: Physician Discharge Instructions: -Follow-up with Dr. Mcgraw office for appointment -Follow-up with nephrology in 2 weeks -Follow-up with PCP in 1 to 2 weeks -Please call Dr. Giles at [phone] if any questions regarding hospital stay -Please call nursing station at [phone] if any nursing or medication questions -Return to the emergency room if symptoms worsen Diet: ADA, low sodium Activity: Fall precautions Followup: Angel Carr MD [ACTIVE - CAN ADMIT] - Tone Snell MD [Primary Care Provider] - Melvin Mcgraw [ACTIVE - CAN ADMIT] -
[2024-02-09 10:00] VITALS: O2SAT 97
--- NOTE | 2024-02-09 10:05 | PN ---
Date of Progress Note: 02/09/2024 Subjective: The patient was admitted to the hospital with acute kidney injury, bacteremia. The lindy ent was initiated on dialysis. The patient developed bacteremia with line infection. Dialysis line has been removed. The patient's last dialysis back on January 30. Still nonoliguric. No uremic symptoms. Physical Examination: Vital Signs: Blood pressure 105/55, pulse of 80, afebrile. Chest: Clear to auscultation. Heart: S1, S2. Regular. Abdomen: Soft, nontender. Extremities: No edema. Neuro: Alert. No focality. Laboratory Data: Hemoglobin 8.8, WBC 6.9. Sodium 137, potassium 4.5, bicarb 23, BUN 52, creatinine 3.6, GFR of 16. Calcium 8.4, phosphorus 2.7, albumin 2.4, corrected calcium is 9.6. Current Medications: The patient is on include cefazolin, Flomax, Nepro, Zofran. Assessment And Plan: 1.Acute kidney injury on advanced chronic kidney disease, nonoliguric. No hyperkalemia. I do not s ee the need to resume dialysis for the time being. We will continue to monitor. Keep holding on new line, and we will follow up. 2.Hypertension, controlled, optimal. 3.Obstructive uropathy. Will follow up with Urology. Continue Flomax. 4.Bacteremia secondary to line infection, methicillin-sensitive Staphylococcus aureus. Continue current antibiotic. Will follow up with Primary. EMORY Voice ID: [id number] Report ID: [id number]
[2024-02-09 13:23] VITALS: BP 120/56; TEMP 98.1
== END 2024-02-09 14:45 | DRG 659 ==
LOC: ER 06:39 → ERHOLD 10:37 → 2ND 11:47 → 3RD-ICU 13:12 → 2ND 02-02 14:20
PROVIDERS: ADMIT Hospitalist; ATTEND Hospitalist
PROC: 4A033R1 Measurement of Arterial Saturation, Peripheral, Percutaneous Approach (ICD-10-PCS; 2024-01-29)
PROC: 02HV33Z Insertion of Infusion Device into Superior Vena Cava, Percutaneous Approach (ICD-10-PCS; principal; 2024-01-30)
PROC: 5A1D70Z Performance of Urinary Filtration, Intermittent, Less than 6 Hours Per Day (ICD-10-PCS; 2024-01-30)
PROC: 5A1D70Z Performance of Urinary Filtration, Intermittent, Less than 6 Hours Per Day (ICD-10-PCS; 2024-01-31)
PROC: 0T788DZ Dilation of Bilateral Ureters with Intraluminal Device, Via Natural or Artificial Opening Endoscopic (ICD-10-PCS; 2024-02-03)
PROC: 0T2BX0Z Change Drainage Device in Bladder, External Approach (ICD-10-PCS; 2024-02-03)
PROC: BT1D1ZZ Fluoroscopy of Right Kidney, Ureter and Bladder using Low Osmolar Contrast (ICD-10-PCS; 2024-02-03)
PROC: 0TP98DZ Removal of Intraluminal Device from Ureter, Via Natural or Artificial Opening Endoscopic (ICD-10-PCS; 2024-02-03)
DX: T83.511A Infection and inflammatory reaction due to indwelling urethral catheter, initial encounter (principal); A41.01 Sepsis due to Methicillin susceptible Staphylococcus aureus; R65.20 Severe sepsis without septic shock; J18.9 Pneumonia, unspecified organism; G92.9 Unspecified toxic encephalopathy; R57.0 Cardiogenic shock; I21.A1 Myocardial infarction type 2; N17.9 Acute kidney failure, unspecified; E87.21 Acute metabolic acidosis; I32 Pericarditis in diseases classified elsewhere; E87.1 Hypo-osmolality and hyponatremia; Z68.1 Body mass index [BMI] 19.9 or less, adult; N13.1 Hydronephrosis with ureteral stricture, not elsewhere classified; T82.41XA Breakdown (mechanical) of vascular dialysis catheter, initial encounter; T82.7XXA Infection and inflammatory reaction due to other cardiac and vascular devices, implants and grafts, initial encounter; N39.0 Urinary tract infection, site not specified; W19.XXXA Unspecified fall, initial encounter; Z88.0 Allergy status to penicillin; E87.5 Hyperkalemia; D63.1 Anemia in chronic kidney disease; N18.30 Chronic kidney disease, stage 3 unspecified; D72.829 Elevated white blood cell count, unspecified; Z74.01 Bed confinement status; F03.90 Unspecified dementia, unspecified severity, without behavioral disturbance, psychotic disturbance, mood disturbance, and anxiety; R62.7 Adult failure to thrive; E03.9 Hypothyroidism, unspecified; I12.9 Hypertensive chronic kidney disease with stage 1 through stage 4 chronic kidney disease, or unspecified chronic kidney disease; N40.0 Benign prostatic hyperplasia without lower urinary tract symptoms; Z96.0 Presence of urogenital implants
CPT/HCPCS: 36415; 36600; 51610; 70450; 71045; 71250; 72125; 74176; 74450; 76770; 80048; 80053; 80069; 80076; 81001; 82550; 82805; 82947; 83605; 83735; 83880; 84100; 84439; 84443; 84484; 85025; 85027; 85610; 86140; 86704; 86706; 87040; 87070; 87077; 87086; 87088; 87186; 87205; 87340; 90935; 93005; 93306; 94760; 97116; 97161; 97165; 97530; 99285; J0690; J0696; J1644; J1720; J2003; J2150; J2470; J2704; J3010; J3480; J7030; J7040; J7050; J7799; P9047

== ENCOUNTER 2024-03-04 16:41 | Emergency (ER) | payer OTHER ==
--- NOTE | 2024-03-04 17:59 | RAD REPORT ---
EXAMINATION: CT HEAD WITHOUT CONTRAST CLINICAL INDICATION: Male, 83 years old.fall, head injury, laceration forehead TECHNIQUE: Axial CT images from the skull base to the vertex without intravenous contrast. Coronal an d sagittal reformatted images were created from the data set. One or more of the following dose reduction techniques were used: Automated exposure control, adjustment of the mA and/or kV according to patient size, and/or iterative reconstruction. Unless otherwise specified, incidental findings do not require dedicated imaging follow-up. [id number]. COMPARISON: 01/29/2024 FINDINGS: INTRACRANIAL: No acute intracranial hemorrhage. No hydrocephalus. No mass effect or midline shift. Mo derate chronic small vessel ischemic changes.Mild cerebral atrophy. VASCULATURE: No visualized abnormalities in the arteries or dural venous sinuses. SCALP/SKULL: No significant soft tissue or osseous abnormalities. SINUSES: The visualized paranasal sinuses and mastoid air cells are predominantly clear. IMPRESSION: No acute intracranial abnormality.
--- NOTE | 2024-03-04 17:59 | RAD REPORT ---
EXAMINATION: Elbow Right 3 View CLINICAL INDICATION: Male, 83 years old. PAIN RIGHT COMPARISON: No prior exam. FINDINGS: No acute fracture. No malalignment/dislocation. No significant focal degenerative change. Other: n/a IMPRESSION: No acute osseous abnormality.
[2024-03-04] MEDS ORDERED: LIDOCAINE 1% 20 ML MDV ONE (18:22)
--- NOTE | 2024-03-04 19:11 | EDPHYS ---
Physician Documentation [facility] Name: Enzo Person Age: 83 yrs Sex: Male : 1940 Arrival Date: 03/04/2024 Time: 16:41 Bed 20 Private MD: ED Physician Henri Garcia HPI: 03/04 17:09 This 83 yrs old Male presents to ER via Unassigned with complaints of Fall Injury. rn 17:09 Details of fall: The patient fell from an upright position. rn 17:09 Onset: The symptoms/episode began/occurred today. Associated injuries: The patient rn sustained injury to the head. Severity of symptoms: At their worst the symptoms were mild, in the emergency department the symptoms are unchanged. The patient has not experienced similar symptoms in the past. Patient reports fall, struck forehead on ground, no LOC, no known blood thinners, brought in by EMS from sn[facility]. EMS reports skin tears to the right forearm and elbow that were addressed prior to arrival. Patient with laceration to forehead. Historical: - Allergies: 17:09 PENICILLINS; os - PMHx: 17:09 Anemia; benign prostatic hyperplasia (UTI); CKD; Hypothyroidism; UTI; os - Immunization history:: Adult Immunizations up to date. - Infectious Disease History:: Denies. - Immunization history: Last tetanus immunization: - up to date. - Social history:: Smoking status: Patient reports the use of cigarette tobacco products, denies chronic smoking, but will smoke occasionally. - Family history:: not pertinent. - Hospitalizations: : No recent hospitalization is reported. ROS: 17:09 Constitutional: Negative for fever, chills, and weight loss, Neck: Negative for injury, rn pain, and swelling, Cardiovascular: Negative for chest pain, palpitations, and edema, Respiratory: Negative for shortness of breath, cough, wheezing, and pleuritic chest pain, Abdomen/GI: Negative for abdominal pain, nausea, vomiting, diarrhea, and constipation, Back: Negative for injury and pain, MS/Extremity: Negative for injury and deformity, Skin: Positive for laceration to forehead Neuro: Positive for head injury Exam: 17:09 Constitutional: This is a well developed, well nourished patient who is awake, alert, rn and in no acute distress. Cardiovascular: Regular rate and rhythm. No pulse deficits. Respiratory: No increased work of breathing, no retractions or nasal flaring. Abdomen/GI: Soft, non-tender Skin: 4 cm superficial laceration, slightly irregular to mid forehead. No active bleeding. No foreign body MS/ Extremity: Pulses equal, no cyanosis. Neurovascular intact. Full, normal range of motion. Equal circumference. Superficial skin tear to right elbow, no laceration Neuro: Awake and alert, GCS 15 Vital Signs: 17:03 BP 137 / 51; Pulse 88; Resp 17; Temp 98.3; Pulse Ox 99% on R/A; Weight 52.62 kg; os 18:00 BP 132 / 65; Pulse 88; Resp 16; Pulse Ox 98% on R/A; os 21:30 BP 128 / 71; Pulse 85; Resp 16; Temp 98; Pulse Ox 98% on NC; os Carlos Coma Score: 18:00 Eye Response: spontaneous(4). Motor Response: obeys commands(6). Verbal Response: os oriented(5). Total: 15. Trauma Score (Adult): 18:00 Eye Response: spontaneous(1); Verbal Response: oriented(1); Motor Response: obeys os commands(2); Systolic BP: > 89 mm Hg(4); Respiratory Rate: 10 to 29 per min(4); Ogden Score: 15; Trauma Score: 12 Laceration: 19:06 Wound Repair of 5cm ( 2.0in ) subcutaneous laceration to forehead. Distal rn neuro/vascular/tendon intact. Anesthesia: Wound infiltrated with 3 mls of 1% lidocaine. Wound prep: Extensive cleansing by me, Wound irrigation by me, Wound explored, Copious irrigation. Skin closed with 8 5-0 Prolene using interrupted sutures and sterile technique. Dressed with Steri-Strips. Patient tolerated well. MDM: 17:04 Medical Screening Exam initiated rn 19:06 Differential diagnosis: closed head injury, contusion, fracture, laceration. Data rn reviewed: vital signs, nurses notes, radiologic studies, CT scan, plain films, and as a result, I will discharge patient. 19:09 Counseling: I had a detailed discussion with the patient and/or guardian regarding the rn historical points, exam findings, and any diagnostic results supporting the discharge/admit diagnosis, radiology results, the need for outpatient follow up, to return to the emergency department if symptoms worsen or persist or if there are any questions or concerns that arise at home. Response to treatment: the patient's symptoms have markedly improved after treatment, and as a result, I will discharge patient. 19:10 ED course: Repeat musculoskeletal examination negative for new findings. Has full range rn of motion of bilateral hips and lower extremities.. 03/04 17:07 Order name: CT Head Brain wo Cont; Complete Time: 18:07 rn 03/04 17:14 Order name: XRAY Elbow RIGHT 3 view; Complete Time: 18:07 rn 03/04 17:07 Order name: Wound Care; Complete Time: 18:39 rn 03/04 17:07 Order name: Suture Tray at Bedside; Complete Time: 18:39 rn Administered Medications: 18:39 Drug: Lidocaine Infiltration (1 %) 1 vials 5 ml Infiltration once; to bedside Volume: 5 os ml; Route: Infiltration; Disposition Summary: 03/04/24 19:10 Discharge Ordered Notes: Location: Home rn Problem: new rn Symptoms: have improved rn Condition: Stable rn Diagnosis - Unspecified injury of head, initial encounter rn - Laceration with foreign body of other part of head, initial encounter rn - Skin avulsion right forearm rn Followup: rn - With: Emergency Department - When: 10 - 14 days - Reason: Staple/Suture removal Discharge Instructions: - Discharge Summary Sheet rn - Head Injury, Adult rn - Laceration Care, Adult rn Forms: - Medication Reconciliation Form rn - Antibiotic family law attorney - Prescription Opioid Use rn - Patient Portal Instructions rn - Leadership Thank You Letter rn Signatures: Dispatcher MedHo Henri Box MD MD rn Sotiri, Orest, RN RN os Corrections: (The following items were deleted from the chart) 17:15 17:15 Elbow Right 3 View+RAD.[email or web address] ordered. EDMS EDMS
--- NOTE | 2024-03-04 19:11 | ER ---
Nurse's Notes [facility] Name: Enzo Person Age: 83 yrs Sex: Male : 1940 Arrival Date: 03/04/2024 Time: 16:41 Bed 20 Private MD: Diagnosis: Unspecified injury of head, initial encounter;Laceration with foreign body of other part of head, initial encounter;Skin avulsion right forearm Presentation: 03/04 17:03 Chief complaint: Patient states: Patient c/o forehead laceration after a fall. EMS was os called by staff at [facility]. Patient denies LOC \T\ thinners. Coronavirus screen: Vaccine status: Patient reports receiving the 2nd dose of the covid vaccine. Client denies travel out of the [place] in the last 14 days. At this time, the client does not indicate any symptoms associated with coronavirus-19. Ebola Screen: Patient negative for fever greater than or equal to 101.5 degrees Fahrenheit, and additional compatible Ebola Virus Disease symptoms Patient denies exposure to infectious person. Patient denies travel to an Ebola-affected area in the 21 days before illness onset. Initial Sepsis Screen: Does the patient meet any 2 criteria? No. Patient's initial sepsis screen is negative. Does the patient have a suspected source of infection? No. Patient's initial sepsis screen is negative. Risk Assessment: Do you want to hurt yourself or someone else? Patient reports no desire to harm self or others. Onset of symptoms was March 04, 2024. Mechanism of Injury: Fall walking. 17:03 Method Of Arrival: EMS: [facility] os 17:03 Acuity: HUMERA 3 os 21:54 Care prior to arrival: None. Trauma event details: Injury occurred in the [facility], Injury occurred: alf. 21:56 Mechanism of Injury: Fall down steps. os Triage Assessment: 17:09 General: Appears in no apparent distress. Behavior is calm, cooperative, appropriate os for age. Pain: Denies pain. Trauma Activation: Physician: ED Physician; Name: huyo; Notified At: ; Arrived At: Physician: General Surgeon; Name: n/a; Notified At: ; Arrived At: Physician: Radiology; Name: ; Notified At: ; Arrived At: Physician: Respiratory; Name: ; Notified At: ; Arrived At: Physician: Lab; Name: ; Notified At: ; Arrived At: Historical: - Allergies: 17:09 PENICILLINS; os - PMHx: 17:09 Anemia; benign prostatic hyperplasia (UTI); CKD; Hypothyroidism; UTI; os - Immunization history:: Adult Immunizations up to date. - Infectious Disease History:: Denies. - Immunization history: Last tetanus immunization: - up to date. - Social history:: Smoking status: Patient reports the use of cigarette tobacco products, denies chronic smoking, but will smoke occasionally. - Family history:: not pertinent. - Hospitalizations: : No recent hospitalization is reported. Screenin:50 [facility] ED Fall Risk Assessment (Adult) History of falling in the last 3 months, os including since admission Yes- single mechanical fall (1 pt) Confusion or Disorientation No (0 pts) Intoxicated or Sedated No (0 pts) Impaired Gait No (0 pts) Mobility Assist Device Used Yes (1 pt) Altered Elimination Yes (1 pt) Score/Fall Risk Level 0 - 2 = Low Risk Oriented to surroundings, Maintained a safe environment, Educated pt \T\ family on fall prevention, incl call for assistance when getting out of bed, Assessed \T\ reinforced patient's understanding of fall precautions. Abuse screen: Denies threats or abuse. Nutritional screening: No deficits noted. Tuberculosis screening: No symptoms or risk factors identified. Primary Survey: 21:53 NO uncontrolled hemorrhage observed. A: The client is awake and alert. The airway is os patent. Breathing/Chest: Spontaneous respiratory effort, equal unlabored respirations, breath sounds clear bilaterally, regular pattern, symmetrical chest rise and fall. Circulation: No external hemorrhage present. Regular and strong central pulse, skin warm/dry/normal color. Disability Client is alert. Exposure/Environment: There is no evidence of uncontrolled external bleeding. Obvious injury(ies) are noted at this time: Laceration on forehead. Reassessment Alertness and Airway: Awake and alert. The airway is patent. Breathing: Spontaneous respiratory effort, equal unlabored respirations, breath sounds clear bilaterally, regular pattern with symmetrical chest rise and fall. Circulation: No external hemorrhage noted. Regular and strong central pulse, skin warm/dry/normal color. Disability:. Assessment: 17:10 Derm: Wound noted forehead Wound is Laceration. os Vital Signs: 17:03 BP 137 / 51; Pulse 88; Resp 17; Temp 98.3; Pulse Ox 99% on R/A; Weight 52.62 kg; os 18:00 BP 132 / 65; Pulse 88; Resp 16; Pulse Ox 98% on R/A; os 21:30 BP 128 / 71; Pulse 85; Resp 16; Temp 98; Pulse Ox 98% on NC; os Johnson Coma Score: 18:00 Eye Response: spontaneous(4). Motor Response: obeys commands(6). Verbal Response: os oriented(5). Total: 15. Trauma Score (Adult): 18:00 Eye Response: spontaneous(1); Verbal Response: oriented(1); Motor Response: obeys os commands(2); Systolic BP: > 89 mm Hg(4); Respiratory Rate: 10 to 29 per min(4); Johnson Score: 15; Trauma Score: 12 ED Course: 17:02 Patient arrived in ED. os 17:03 Henri Garcia MD is Attending Physician. rn 17:06 Eben Person [phone] can come pick up operator his dad when ready/ he just needs a heads up eb so he can drive down to get her. 17:09 Triage completed. os 17:43 XRAY Elbow RIGHT 3 view In Process Unspecified. EDMS 17:44 CT Head Brain wo Cont In Process Unspecified. EDMS 18:08 Joselyn Woodall, LUL is Primary Nurse. os 21:50 Patient has correct armband on for positive identification. Fall risk band placed. Bed os in low position. Call light in reach. Side rails up X2. Provided Education on: . 21:50 No provider procedures requiring assistance completed. Patient did not have IV access os during this emergency room visit. 21:57 Patient 4x4 gauze and steri strips with sutures. os 21:57 Patient maintains SpO2 saturation greater than 95% on room air. os 21:57 Thermoregulation: warm blanket given to patient. os Administered Medications: 18:39 Drug: Lidocaine Infiltration (1 %) 1 vials 5 ml Infiltration once; to bedside Volume: 5 os ml; Route: Infiltration; Medication: 21:57 VIS not applicable for this client. os Intake: 18:00 PO: 0ml; Total: 0ml. os Outcome: 19:10 Discharge ordered by . rn 21:50 Discharged to home via ambulance, os 21:50 Condition: improved 21:50 Discharge instructions given to patient, alf, 21:55 Patient's length of stay in the Emergency Department was greater than 2 hours. Pending os 3.5 hrs from transfer ambulance called by [facility].Patient's length of stay extended due to 21:59 Patient left the ED. os Signatures: Dispatcher [employer] Henri Box MD MD rn Botello, Elizabeth eb Sotiri, Orest, RN RN os
[2024-03-04 22:18] VITALS: O2SAT 98
[2024-03-04 22:19] VITALS: BP 128/71; TEMP 98
== END 2024-03-04 21:59 | disposition home or self-care (01) ==
LOC: ER 16:41
DX: S01.81XA Laceration without foreign body of other part of head, initial encounter (principal); S51.801A Unspecified open wound of right forearm, initial encounter; W18.30XA Fall on same level, unspecified, initial encounter
CPT/HCPCS: 70450; 73080; 99283; 12032; J2003

== ENCOUNTER 2024-03-05 09:23 | Emergency (ER) | payer OTHER ==
[2024-03-05 10:05] LABS: Absolute Lymphocytes (CBC) 0.5 K/uL (0.7-4.9); Absolute Monocytes 1.4 K/uL (0.1-1.3); Absolute Neutrophil 10.2 K/uL (1.8-8.0); Basophils % 0.3 % (0-1.3); Eosinophils % 0.1 % (0-4.4); Hematocrit 22.8 % (39.6-49.0); Hemoglobin 7.6 g/dL (13.6-17.9); Lymphocytes % 4.2 % (15.3-44.8); MCH 33.2 pg (27.0-35.0); MCHC 33.3 g/dL (32.0-36.0); MCV 99.7 fL (80-100); MPV 10.8 fL (7.6-11.3); Monocytes % 11.2 % (3.3-12.3); Neutrophils % 84.2 % (41.7-73.7); Nucleated Red Blood Cells % 0.1 % (0-0); PT Prothrombin Time 11.9 SECONDS (9.4-12.5); Platelets 190 thou/uL (152-406); Protime INR 1.13; RBC Red Blood Cell Count 2.29 M/uL (4.33-5.43); Red Cell Distribution Width 13.5 % (12.1-15.2)
--- NOTE | 2024-03-05 10:08 | RAD REPORT ---
EXAMINATION: CT HEAD WITHOUT CONTRAST CT CERVICAL SPINE WITHOUT CONTRAST CLINICAL INDICATION: Male, 83 years old. fall TECHNIQUE: Axial CT images from the skull base to the vertex without intravenous contrast. Axial CT i mages through the cervical spine were obtained without intravenous contrast. Sagittal and coronal reformatted images were created from the data set. Coronal and sagittal reformatted images were creat ed from the data set. One or more of the following dose reduction techniques were used: Automated exposure control, adjustment of the mA and/or kV according to patient size, and/or iterative reconstr uction. Unless otherwise specified, incidental findings do not require dedicated imaging follow-up. [id number]. COMPARISON: 01/29/2024 FINDINGS: Head: INTRACRANIAL: No acute intracranial hemorrhage. No hydrocephalus. No mass effect or midline shift. Mi ld chronic small vessel ischemic changes.Age advanced cerebral atrophy. VASCULATURE: No visualized abnormalities in the arteries or dural venous sinuses. SCALP/SKULL: No significant soft tissue or osseous abnormalities. SINUSES: New air-fluid level in the right maxillary sinus with hemosinus. Interval development of a r ight orbital floor and anterior and lateral wall fracture of the right maxillary sinus. No intraconal hemorrhage. Cervical spine: ALIGNMENT: The cervical spine has normal alignment without scoliosis or spondylolisthesis. BONE: Vertebral body heights are maintained. No aggressive osseous lesions. DEGENERATIVE CHANGES: Mild multilevel cervical spondylosis with evidence of neural foraminal narrowin g bilaterally at C5-6. No high-grade central spinal stenosis. SOFT TISSUE: No significant abnormalities in the soft tissue of the neck. The visualized lung apices are clear. IMPRESSION: 1. No acute intracranial abnormality. 2. No acute fracture or traumatic malalignment of the cervical spine. 3. New right side hemosinus with orbital floor and right maxillary sinus fracture.
[2024-03-05 10:18] LABS: ALT/SGPT 34 U/L (16-61); AST/SGOT 42 U/L (15-37); Albumin 2.7 g/dL (3.4-5.0); Albumin/Globulin Ratio 0.7 (1.1-1.8); Alkaline Phosphatase 70 U/L (45-117); BUN Blood Urea Nitrogen 118 mg/dL (7-18); Bicarbonate 19 mEq/L (21-32); Bilirubin Total 0.4 mg/dL (0.2-1.0); Globulin 3.8 g/dL (2.3-3.5); Glomerular Filtration Rate 12 ml/min (=/>90); Glucose Level 140 mg/dL (74-106); Magnesium 2.3 mg/dL (1.6-2.4); Protein, Total 6.5 g/dL (6.4-8.2); Sodium Level 139 mEq/L (136-145); Troponin High Sensitivity 5.7 pg/mL (<58.9)
[2024-03-05 10:22] LABS: Bilirubin Direct < 0.2 mg/dL (0-0.2); Bilirubin Indirect, Calculated 0.2 mg/dL (0.2-0.8)
--- NOTE | 2024-03-05 10:34 | RAD REPORT ---
EXAM: Chest Single View HISTORY: fall COMPARISON: None. FINDINGS: LUNGS/PLEURA: The lungs are clear. No pleural effusions or pneumothorax. No pulmonary edema. MEDIASTINUM: The mediastinal silhouette is within normal limits. CARDIAC: The cardiac silhouette is within normal limits. UPPER ABDOMEN: No significant abnormality. BONES: No acute abnormality. LINES/TUBES/OTHER: N/A IMPRESSION: No evidence of acute cardiopulmonary disease.
--- NOTE | 2024-03-05 10:34 | RAD REPORT ---
EXAMINATION: Femur Left CLINICAL INDICATION: Male, 83 years old. PAIN COMPARISON: No prior exam. FINDINGS: No acute fracture. No malalignment/dislocation. Mild left acetabular degenerative changes. Other: n/a IMPRESSION: No acute osseous abnormality.
--- NOTE | 2024-03-05 10:35 | RAD REPORT ---
EXAMINATION: Pelvis CLINICAL INDICATION: Male, 83 years old. fall COMPARISON: No prior exam. FINDINGS: No acute fracture. No malalignment/dislocation. Mild bilateral acetabular degenerative changes. Other: Bilateral ureteral stents. Bladder catheter. IMPRESSION: No pelvic fracture.
--- NOTE | 2024-03-05 13:33 | EDPHYS ---
Physician Documentation [facility] Name: Enzo Person Age: 83 yrs Sex: Male : 1940 Arrival Date: 03/05/2024 Time: 09:23 Bed 18 Private MD: ED Physician Matthew Alvarez HPI: 03/05 09:40 This 83 yrs old Male presents to ER via EMS with complaints of Fall. cp 09:40 The patient or guardian reports swelling, tenderness. cp 09:40 The complaints affect the occipital area of scalp. Context of injury: resulted from cp reported fall from bed. Onset: The symptoms/episode began/occurred today, yesterday. Associated signs and symptoms: Pertinent positives: generalized weakness, left upper leg, Pertinent negatives: reported LOC. Historical: - Allergies: :31 PENICILLINS; bp - PMHx: :31 Anemia; benign prostatic hyperplasia (UTI); CKD; Hypothyroidism; UTI; bp - Immunization history:: Adult Immunizations up to date. - Infectious Disease History:: Denies. - Social history:: Smoking status: Patient denies any tobacco usage or history of. ROS: 09:45 Constitutional: Negative for body aches, chills, fever, poor PO intake, cp 09:45 Eyes: Negative for injury, pain, redness, and discharge, cp 09:45 ENT: Negative for drainage from ear(s), ear pain, sore throat, difficulty swallowing, difficulty handling secretions, 09:45 Cardiovascular: Negative for chest pain, edema, palpitations, 09:45 Respiratory: Negative for cough, shortness of breath, wheezing, 09:45 Abdomen/GI: Negative for abdominal pain, vomiting, diarrhea, constipation, 09:45 MS/extremity: Negative for pain, left upper leg, 09:45 Neuro: Positive for weakness, Negative for altered mental status, loss of consciousness, seizure activity, syncope, near syncope, 09:45 All other systems are negative, Exam: 09:50 Constitutional: The patient appears in no acute distress, alert, awake, cp non-diaphoretic, non-toxic, well developed, well nourished, 09:50 Head/face: Noted is contusion, that is superficial, of the occipital area of scalp, cp swelling, that is mild, mild swelling of forehead and right facial cheek. 09:50 Eyes: Pupils: equal, round, and reactive to light and accomodation, Extraocular movements: intact throughout, Conjunctiva: normal, no exudate, no injection, Sclera: no appreciated abnormality, Lids and lashes: appear normal, bilaterally, 09:50 ENT: External ear(s): are unremarkable, Nose: is normal, Mouth: Lips: moist, Oral mucosa: moist, Posterior pharynx: Airway: no evidence of obstruction, patent, 09:50 Neck: C-spine: vertebral tenderness, is not appreciated, crepitus, is not appreciated, ROM/movement: pain, is not appreciated, limited range of motion, is not appreciated, 09:50 Chest/axilla: Inspection: normal, Palpation: is normal, no crepitus, no tenderness, 09:50 Cardiovascular: Rate: tachycardic, Rhythm: regular, Edema: is not appreciated, JVD: is not appreciated, 09:50 Respiratory: the patient does not display signs of respiratory distress, Respirations: normal, no use of accessory muscles, no retractions, labored breathing, is not present, Breath sounds: are clear throughout, no decreased breath sounds, no stridor, no wheezing, 09:50 Abdomen/GI: Inspection: abdomen appears normal, Palpation: abdomen is soft and non-tender, in all quadrants, 09:50 : Rectal exam: Stool: dark colored, 09:50 Musculoskeletal/extremity: Extremities: noted in the left upper leg: pain, tenderness, There is no evidence of decreased ROM, deformity, ROM: full active range of motion, in the left hip and left knee, 09:50 Neuro: Orientation: to person, place, situation, Mentation: able to follow commands, Motor: moves all fours, no focal deficits, Vital Signs: 09:29 BP 116 / 58; Pulse 107; Resp 16; Temp 98; Pulse Ox 99% ; bp 12:26 BP 109 / 49; Pulse 85; Resp 16; Pulse Ox 95% ; bp 13:00 BP 112 / 53; Pulse 92; Resp 16; Pulse Ox 98% ; me1 14:00 BP 110 / 47; Pulse 87; Resp 15; Pulse Ox 97% ; me1 15:00 BP 110 / 49; Pulse 92; Resp 16; Temp 98.2; Pulse Ox 96% ; me1 [place] Coma Score: 09:40 Eye Response: spontaneous(4). Motor Response: obeys commands(6). Verbal Response: oriented(5). Total: 15. MDM: 09:30 Medical Screening Exam initiated cp 10:00 Differential diagnosis: Contusion of Hematoma on Laceration of Intracranial bleed- Concussion cerebral contusion. 13:35 Data reviewed: vital signs, nurses notes, lab test result(s), EKG, radiologic studies, CT scan, plain films, and as a result, I will transfer patient. 13:35 I considered the following discharge prescriptions or medication management in the emergency department Medications were administered in the Emergency Department. See MAR. Care significantly affected by the following chronic conditions: Chronic Kidney Disease. Counseling: I had a detailed discussion with the patient and/or guardian regarding the historical points, exam findings, and any diagnostic results supporting the discharge/admit diagnosis, lab results, radiology results, the need to transfer to another facility, [facility] does not immediately have the required specialist. Response to treatment: the patient's symptoms have mildly improved after treatment. 14:20 Management of patient was discussed with the following: Hospitalist: DR Varma \T\[facility] will accept patient as transfer. 03/05 09:33 Order name: Basic Metabolic Panel; Complete Time: 10:23 03/05 10:24 Interpretation: Normal except: CL 109; CO2 19; GLUC 140; BUN 118; CRE 4.72; GFR 12; CA cp 8.3. 03/05 09:33 Order name: CBC with Diff; Complete Time: 10: 03/05 10:21 Interpretation: Normal except: WBC 12.10; RBC 2.29; HGB 7.6; HCT 22.8; JANE% 84.2; LYM% cp 4.2; NEUT A 10.2; LYMA 0.5; MNA 1.4. 03/05 09:33 Order name: LFT's; Complete Time: 10: 03/05 11:26 Interpretation: Normal except: AST 42; ALB 2.7; GLOB 3.8; A/G 0.7. 03/05 09:33 Order name: Magnesium; Complete Time: 10:23 03/05 09:33 Order name: PT-INR; Complete Time: 10:20 03/05 09:33 Order name: Troponin HS; Complete Time: 10:23 03/05 10:31 Order name: Urinalysis W/Microscopic cp 03/05 10:31 Order name: Blood Culture Adult (2) 03/05 10:31 Order name: Lactate w/ 2H reflex if indic.; Complete Time: 13:33 03/05 10:31 Order name: Ptt, Activated; Complete Time: 13:33 03/05 12:51 Order name: Type And Screen 03/05 14:25 Order name: ABO/RH no charge [facility] 03/05 14:27 Order name: Urine Culture [facility] 03/05 09:31 Order name: CT Head C Spine; Complete Time: 10:20 03/05 09:33 Order name: XRAY Chest (1 view); Complete Time: 10:46 03/05 10:46 Interpretation: Report review. 03/05 09:33 Order name: XRAY Pelvis; Complete Time: 10:46 03/05 10:47 Interpretation: Report reviewed. 03/05 09:33 Order name: XRAY Femur LEFT; Complete Time: 10:46 03/05 09:33 Order name: EKG; Complete Time: 09:34 03/05 09:33 Order name: Cardiac monitoring; Complete Time: 09:36 03/05 09:33 Order name: EKG - Nurse/Tech; Complete Time: 10:13 03/05 09:33 Order name: IV Saline Lock; Complete Time: 09:36 03/05 09:33 Order name: Labs collected and sent; Complete Time: 09:45 03/05 09:33 Order name: O2 Per Protocol; Complete Time: 09:36 03/05 09:33 Order name: O2 Sat Monitoring; Complete Time: 09:36 03/05 10:00 Order name: Wound Care; Complete Time: 12:24 03/05 10:31 Order name: Accucheck; Complete Time: 12:07 03/05 10:31 Order name: IV Saline Lock - Large Bore; Complete Time: 12:07 03/05 10:31 Order name: Vital Signs; Complete Time: 12:07 cp Administered Medications: 13:55 Drug: Pantoprazole IVP 40 mg IVP once Route: IVP; Site: right forearm; me1 14:41 Follow up: Response: No adverse reaction me1 13:55 Drug: Pantoprazole IV 8 mg/hr IV at 25 ml/hr continuous; (Standard dilution is 80 mg in me1 250 mL NS) Route: IV; Rate: 25 ml/hr; Site: right forearm; 14:48 Follow up: IV Status: Infusion continued upon transfer me1 13:55 Drug: Rocephin IV 1 grams IV at calculated rate once; Given slow IV push per pharmacy me1 instructions Route: IV; Rate: calculated rate; Site: right forearm; 14:41 Follow up: Response: No adverse reaction; IV Status: Completed infusion me1 Disposition: 03/06 12:09 Chart complete. cp Disposition Summary: 03/05/24 13:32 Transfer Ordered Notes: Reason: Higher level of care cp Condition: Stable cp Problem: new cp Symptoms: have improved cp Transfer Location: [facility](03/05/24 13:36) cp Accepting Physician: doctor(03/05/24 15:37) me1 Diagnosis - Anemia in other chronic diseases classified elsewhere cp - Chronic kidney disease, unspecified cp - Fracture of orbital floor, right side, initial encounter for closed fracture cp - Contusion of other part of head, initial encounter cp - Repeated falls cp - UTI/ Urinary tract infection, site not specified cp Forms: - Medication Reconciliation Form cp - SBAR form cp Addendum: 03/09/2024 07:22 Co-signature as Attending Physician, Matthew Alvarez MD I agree with the assessment and c campos plan of care. Signatures: Dispatcher [employer] Matthew White MD MD cha Page, Corey, PA PA cp Jose A Prescott RN RN bp Eddleman, Michelle, RN RN me1 Corrections: (The following items were deleted from the chart) 03/05 09:34 09:34 BASIC METABOLIC PANEL+C.LAB.BRZ ordered. EDMS EDMS 09:34 09:34 CBC+H.LAB.BRZ ordered. EDMS EDMS 09:34 09:34 HEPATIC FUNCTION+C.LAB.BRZ ordered. EDMS EDMS 09:34 09:34 MAGNESIUM+C.LAB.BRZ ordered. EDMS EDMS 09:34 09:34 PROTIME (+INR)+COAG.LAB.BRZ ordered. EDMS EDMS 09:34 09:34 Troponin High Sensitivity+C.LAB.BRZ ordered. EDMS EDMS 13:36 13:32 doctor cp cp 13:36 13:32 [facility] cp cp 14:00 13:36 doctor cp cp 15:37 14:00 doctor cp me1
--- NOTE | 2024-03-05 13:33 | ER ---
Nurse's Notes [facility] Clarissa Name: Enzo Person Age: 83 yrs Sex: Male : 1940 Arrival Date: 03/05/2024 Time: 09:23 Bed 18 Private MD: Diagnosis: Anemia in other chronic diseases classified elsewhere;Chronic kidney disease, unspecified;Fracture of orbital floor, right side, initial encounter for closed fracture;Contusion of other part of head, initial encounter;Repeated falls;UTI/ Urinary tract infection, site not specified Presentation: 03/05 09:29 Chief complaint: EMS states: MX FALLS IN LAST TWO DAYS. Coronavirus screen: At this bp time, the client does not indicate any symptoms associated with coronavirus-19. Ebola Screen: No symptoms or risks identified at this time. Initial Sepsis Screen: Does the patient meet any 2 criteria? No. Patient's initial sepsis screen is negative. Does the patient have a suspected source of infection? No. Patient's initial sepsis screen is negative. Risk Assessment: Do you want to hurt yourself or someone else? Patient reports no desire to harm self or others. Onset of symptoms is unknown. Care prior to arrival: IV initiated. 20 GA, in the right forearm, Glucose check: 150. 09:29 Method Of Arrival: EMS: [facility] bp 09:29 Acuity: HUMERA 3 bp Triage Assessment: :31 General: Appears in no apparent distress. Behavior is calm, cooperative, appropriate bp for age. Pain: Complains of pain in face. EENT: No deficits noted. Neuro: No deficits noted. Cardiovascular: No deficits noted. Respiratory: No deficits noted. GI: No signs and/or symptoms were reported involving the gastrointestinal system. : No signs and/or symptoms were reported regarding the genitourinary system. Derm: No deficits noted. Musculoskeletal: No deficits noted. Injury Description: Laceration sustained to scalp. Historical: - Allergies: : PENICILLINS; bp - PMHx: :31 Anemia; benign prostatic hyperplasia (UTI); CKD; Hypothyroidism; UTI; bp - Immunization history:: Adult Immunizations up to date. - Infectious Disease History:: Denies. - Social history:: Smoking status: Patient denies any tobacco usage or history of. Screenin:15 [facility] ED Fall Risk Assessment (Adult) History of falling in the last 3 months, bp including since admission Yes- fall prone (multiple falls) (3 pts) Confusion or Disorientation No (0 pts) Intoxicated or Sedated No (0 pts) Impaired Gait No (0 pts) Mobility Assist Device Used Yes (1 pt) Altered Elimination No (0 pt) Score/Fall Risk Level 3 or more points = High Risk Oriented to surroundings. Abuse screen: Denies threats or abuse. Denies injuries from another. Nutritional screening: No deficits noted. Tuberculosis screening: No symptoms or risk factors identified. Assessment: 09:30 General: Appears in no apparent distress. comfortable, Behavior is calm, cooperative, bp appropriate for age. 12:05 General: Appears in no apparent distress. comfortable, Behavior is calm, cooperative, me1 appropriate for age. Pain: Denies pain. Neuro: Level of Consciousness is awake, alert, obeys commands, Oriented to person, place, time, situation, Appropriate for age. Cardiovascular: Patient's skin is warm and dry. Respiratory: Airway is patent Respiratory effort is even, unlabored, Respiratory pattern is regular, symmetrical. GI: No signs and/or symptoms were reported involving the gastrointestinal system. : Shell in place to gravity drainage. EENT: No signs and/or symptoms were reported regarding the EENT system. Derm: steristrips to forehead and right eye, multiple skin tears to bilateral arms, abrasion to posterior scalp. Musculoskeletal: Reports multiple falls over the past few days secondary to generalized weakness. Injury Description: trip and fall, multiple in the past few days. 12:15 Reassessment: Patient appears in no apparent distress at this time. Patient is alert, bp oriented x 3, equal unlabored respirations, skin warm/dry/pink. 14:50 Reassessment: Report called to Michel Bhatt RN at [facility] [id number]. me1 Vital Signs: 09:29 BP 116 / 58; Pulse 107; Resp 16; Temp 98; Pulse Ox 99% ; bp 12:26 BP 109 / 49; Pulse 85; Resp 16; Pulse Ox 95% ; bp 13:00 BP 112 / 53; Pulse 92; Resp 16; Pulse Ox 98% ; me1 14:00 BP 110 / 47; Pulse 87; Resp 15; Pulse Ox 97% ; me1 15:00 BP 110 / 49; Pulse 92; Resp 16; Temp 98.2; Pulse Ox 96% ; me1 [place] Coma Score: 09:40 Eye Response: spontaneous(4). Motor Response: obeys commands(6). Verbal Response: cp oriented(5). Total: 15. ED Course: 09:28 Patient arrived in ED. eb 09:29 Jose A Prescott, LUL is Primary Nurse. bp 09:30 Matthew Parker PA is PHCP. cp 09:30 Matthew Alvarez MD is Attending Physician. cp 09:30 Maintain EMS IV. Dressing intact. Good blood return noted. Site clean \T\ dry. Gauge \T\ bp site: 20 RAC. Flushed with 10 mL NS. 09:31 Triage completed. bp 09:31 Arm band placed on. bp 09:54 CT Head C Spine In Process Unspecified. EDMS 10:29 XRAY Chest (1 view) In Process Unspecified. EDMS 10:30 XRAY Pelvis In Process Unspecified. EDMS 10:30 XRAY Femur LEFT In Process Unspecified. EDMS 12:00 Client placed on continuous cardiac and pulse oximetry monitoring. NIBP monitoring me1 applied. teletypesetter monitor on. Pulse ox on. NIBP on. 12:15 Patient has correct armband on for positive identification. bp 12:54 Attempted to initiated a transfer with the [facility]/ call disconnected eb after 4 minutes. 13:10 attempted to initiate a transfer with the [facility] again / call eb disconnected after 3 minutes of ringing. 13:23 initiated a transfer with Kirill from the [facility] transfer Center. eb 13:[address] Pederson the hospitalist cotton grader for [facility] with Matthew Connor for eb patient transfer consultation. 13:42 Type And Screen Sent. me1 13:42 Urinalysis W/Microscopic Sent. me1 13:42 Repeat lab(s) drawn. by al, sent to lab. Urine collected: Shell catheter specimen, me1 cloudy. 13:47 administrative approval given by Kirill York / patient has been accepted to [facility] 11D 1165/ Dr. Leon Pederson has accepted the patient in transfer/ report to be called to [phone]. 14:49 Provided Education on: POC. Verbalized understanding.. me1 14:50 No provider procedures requiring assistance completed. me1 15:35 Patient transferred, IV remains in place. me1 Administered Medications: 13:55 Drug: Pantoprazole IVP 40 mg IVP once Route: IVP; Site: right forearm; me1 14:41 Follow up: Response: No adverse reaction me1 13:55 Drug: Pantoprazole IV 8 mg/hr IV at 25 ml/hr continuous; (Standard dilution is 80 mg in me1 250 mL NS) Route: IV; Rate: 25 ml/hr; Site: right forearm; 14:48 Follow up: IV Status: Infusion continued upon transfer me1 13:55 Drug: Rocephin IV 1 grams IV at calculated rate once; Given slow IV push per pharmacy me1 instructions Route: IV; Rate: calculated rate; Site: right forearm; 14:41 Follow up: Response: No adverse reaction; IV Status: Completed infusion me1 Medication: 14:50 VIS not applicable for this client. me1 Outcome: 13:32 ER care complete, transfer ordered by MD. pugh 15:35 Transferred by ground EMS to [facility], X-rays sent w/ me1 patient. 15:35 Condition: stable 15:35 Instructed on the need for transfer, 15:37 Patient left the ED. me1 Signatures: Dispatcher [employer] EDMS Matthew Parker PA PA cp Peltier, Brian, LUL RN Paola Tee Michelle, RN RN me1 Corrections: (The following items were deleted from the chart) 13:31 13:30 attempted to initiate a transfer with the [facility] again / call eb disconnected after 3 minutes of ringing eb 15:36 15:35 Patient admitted, IV remains in place. me1 me1
[2024-03-05] MEDS ORDERED: PANTOPRAZOLE 40 MG INJ ONE (13:44)
[2024-03-05] MEDS ORDERED: CEFTRIAXONE 1000 MG/VIAL ONE (13:44)
[2024-03-05] MEDS ORDERED: NA CHLORIDE 0.9% 250 ML ONE (13:45)
[2024-03-05 14:16] LABS: Specific Gravity 1.011 (1.005-1.030); Sqamous Epithelial None Seen /HPF (None Seen); Urine Bacteria <20 /HPF (<20); Urine Bilirubin NEGATIVE (Negative); Urine Blood 3+ (OVER) (Negative); Urine Clarity Extremely Turbid (Clear); Urine Color Light-Orange (Yellow); Urine Culture Reflex Order REFLEXED; Urine Glucose NEGATIVE (Negative); Urine Ketones NEGATIVE (Negative); Urine Micro Reflex YN NO BILL MICROSCOPIC; Urine Nitrite NEGATIVE (Negative); Urine Protein 2+ (Negative); Urine RBC >50 /HPF (None Seen); Urine Urobilinogen Normal (Normal); Urine WBC >50 /HPF (<5); Urine WBC Clump Many /HPF (None Seen); Urine Yeast (Budding) Many /HPF (None Seen); Urine Yeast with Hyphae Moderate /HPF (None Seen)
[2024-03-05 15:46] VITALS: BP 110/49; TEMP 98.2; O2SAT 96
== END 2024-03-05 15:37 | disposition short-term general hospital (02) ==
LOC: ER 09:23
DX: S02.31XA Fracture of orbital floor, right side, initial encounter for closed fracture (principal); S00.93XA Contusion of unspecified part of head, initial encounter; W06.XXXA Fall from bed, initial encounter; N39.0 Urinary tract infection, site not specified; N18.9 Chronic kidney disease, unspecified; D63.8 Anemia in other chronic diseases classified elsewhere; R29.6 Repeated falls; Z88.0 Allergy status to penicillin
CPT/HCPCS: 96365; 96368; 87040 ×2; 87088; 85025; 81001; 87086; 80048; 36415; 86900; 83735; 86850; 85610; 86901; 80076; 83605; 85730; 84484; 70450; 72125; 71045; 72170; 73552; 99285; J2470; J7050; J0696

== ENCOUNTER 2024-03-26 12:10 | Emergency (ER) | payer OTHER ==
--- NOTE | 2024-03-26 13:32 | RAD REPORT ---
EXAMINATION: CT ABDOMEN AND PELVIS WITHOUT CONTRAST CLINICAL INDICATION: Male, 83 years old.L neph tube malfunction TECHNIQUE: CT abdomen and pelvis was performed, without IV contrast, as per department protocol. Axia l, sagittal and coronal reconstructions were obtained. One or more of the following dose reduction techniques were used: Automated exposure control, adjustment of the mA and/or kV according to the pat ient size, and/or iterative reconstruction. Unless otherwise specified, incidental findings do not require dedicated imaging follow-up. [id number]. IV CONTRAST: Not administered. COMPARISON: 07/02/2023 FINDINGS: The lack of intravenous contrast limits the sensitivity of this exam for evaluation of solid visceral organs, vascular structures, and retroperitoneum. LOWER CHEST: Probable scarring in the right lung.No significant pericardial effusion. Coronary artery calcifications present. UPPER GI: No significant abnormality. LIVER: Low-density lesion right hepatic lobe has benign imaging features. GALLBLADDER/BILE DUCTS: No biliary ductal dilatation.? PANCREAS: Cystic lesion at the pancreatic body measuring 14 mm is unchanged. SPLEEN: Unremarkable. ADRENALS: No adrenal masses. KIDNEYS AND URETERS: Mild right-sided hydronephrosis. Bilateral ureteral stents present. The distal e nds of the stents are within the bladder. The proximal ends are within the renal pelvises. Bilateral nephrostomy tubes are also present. The left nephrostomy tube has been retracted and is no longer within the collecting system. The right tube is probably still within the collecting system though it is retracted laterally.Renal lesions bilaterally which are similar but not well assessed. ABDOMINAL AORTA AND OTHER VESSELS: Normal caliber aorta and IVC. PERITONEUM: No abnormal free fluid. No free air. LYMPH NODES: No pathologic lymphadenopathy. ABDOMINAL WALL: Unremarkable SMALL BOWEL/COLON: Small bowel has normal course and caliber. No colonic wall thickening or pericolon ic inflammatory changes. URINARY BLADDER: Shell catheter in the bladder as well as distal ends of the ureteral stents. Bladder wall is thickened. Gas is present within the bladder. REPRODUCTIVE ORGANS: Moderate to severe prostatomegaly. MUSCULOSKELETAL: Multilevel degenerative changes in the spine. No acute fracture. ADDITIONAL FINDINGS: None. IMPRESSION: The left nephrostomy tube has been retracted peripherally and is no longer within the collecting syst em. No left-sided hydronephrosis is identified, however. Ureteral stents in place. Mild right-sided hydronephrosis but with nephrostomy tube retracted peripherally but likely still within the collectin g system.
[2024-03-26 13:45] LABS: Absolute Basophils 0.1 K/uL (0-0.5); Absolute Eosinophils 0.3 K/uL (0-0.5); Absolute Lymphocytes (CBC) 1.1 K/uL (0.7-4.9); Absolute Monocytes 0.6 K/uL (0.1-1.3); Absolute Neutrophil 2.9 K/uL (1.8-8.0); Basophils % 1.4 % (0-1.3); Eosinophils % 6.1 % (0-4.4); Hematocrit 27.6 % (39.6-49.0); Hemoglobin 9.5 g/dL (13.6-17.9); Lymphocytes % 22.7 % (15.3-44.8); MCH 32.8 pg (27.0-35.0); MCHC 34.3 g/dL (32.0-36.0); MCV 95.5 fL (80-100); MPV 9.4 fL (7.6-11.3); Monocytes % 12.2 % (3.3-12.3); Neutrophils % 57.6 % (41.7-73.7); Platelets 316 thou/uL (152-406); RBC Red Blood Cell Count 2.89 M/uL (4.33-5.43); Red Cell Distribution Width 16.3 % (12.1-15.2)
[2024-03-26 13:59] LABS: Anion Gap 7.5 mEq/L (5.0-15.0); Potassium 4.5 mEq/L (3.5-5.1)
--- NOTE | 2024-03-26 14:11 | ER ---
Nurse's Notes [facility] Juan Name: Enzo Person Age: 83 yrs Sex: Male : 1940 Arrival Date: 03/26/2024 Time: 12:10 Bed 7 Private MD: Diagnosis: Other mechanical complication of nephrostomy catheter, initial encounter Presentation: 03/26 12:14 Chief complaint: EMS states: Called to [facility] due to left nephrostomy cm10 tube not draining. pt denies any other symptoms. Coronavirus screen: Client denies travel out of the [place] in the last 14 days. Ebola Screen: Patient denies travel to an Ebola-affected area in the 21 days before illness onset. Initial Sepsis Screen: Does the patient meet any 2 criteria? No. Patient's initial sepsis screen is negative. Does the patient have a suspected source of infection? No. Patient's initial sepsis screen is negative. Risk Assessment: Do you want to hurt yourself or someone else? Patient reports no desire to harm self or others. Onset of symptoms was March 26, 2024. Transition of care: patient was received from another setting of care (long-term care facility), [facility]. 12:14 Method Of Arrival: EMS: [facility] cm10 12:14 Acuity: HUMERA 3 cm10 Triage Assessment: 12:16 General: Appears in no apparent distress. comfortable, Behavior is calm, cooperative. cm10 Pain: Denies pain. Neuro: No deficits noted. Level of Consciousness is awake, alert, obeys commands, Oriented to person, place, time, situation, Appropriate for age. Respiratory: No deficits noted. Airway is patent Respiratory effort is even, unlabored, Respiratory pattern is regular, symmetrical. : Bilateral nephrostomy tubes. Historical: - Allergies: 12:16 PENICILLINS; cm10 - PMHx: 12:16 Anemia; benign prostatic hyperplasia (UTI); CKD; Hypothyroidism; UTI; cm10 - Immunization history:: Adult Immunizations up to date. - Infectious Disease History:: Denies. - Social history:: Smoking status: Patient denies any tobacco usage or history of. Screenin:44 [facility] ED Fall Risk Assessment (Adult) History of falling in the last 3 months, cm10 including since admission Yes- fall prone (multiple falls) (3 pts) Confusion or Disorientation No (0 pts) Intoxicated or Sedated No (0 pts) Impaired Gait Yes (1 pt) Mobility Assist Device Used Yes (1 pt) Altered Elimination Yes (1 pt) Score/Fall Risk Level 3 or more points = High Risk Oriented to surroundings, Maintained a safe environment, Hourly rounding (assess needs \T\ fall precautionary measures) done. Abuse screen: Denies threats or abuse. Denies injuries from another. Nutritional screening: No deficits noted. Tuberculosis screening: No symptoms or risk factors identified. Assessment: 13:44 Reassessment: Patient appears in no apparent distress at this time. Patient and/or cm10 family updated on plan of care and expected duration. Pain level reassessed. Patient is alert, oriented x 3, equal unlabored respirations, skin warm/dry/pink. 14:16 Reassessment: Patient appears in no apparent distress at this time. Patient and/or kc6 family updated on plan of care and expected duration. Pain level reassessed. Patient is alert, oriented x 3, equal unlabored respirations, skin warm/dry/pink. 14:34 General: [facility] made aware that patient is discharged. Pt's daughter cm10 called for ride, daughter unable to pick patient up. [facility] said she would call back for ride details.. Vital Signs: 12:14 BP 126 / 52; Pulse 83; Resp 15; Temp 98.6; Pulse Ox 99% on R/A; Weight 52.16 kg; Height cm10 5 ft. 7 in. ; Pain 0/10; 13:43 BP 115 / 50; Pulse 78; Resp 15; Pulse Ox 100% ; cm10 14:16 BP 105 / 42; Pulse 70; Resp 15 S; Pulse Ox 100% on R/A; kc6 12:14 Body Mass Index 18.01 (52.16 kg, 170.18 cm) cm10 12:14 Pain Scale: Adult cm10 ED Course: 12:13 Patient arrived in ED. eb 12:13 Marlon Schneider MD is Attending Physician. ec2 12:14 Karol Gutierrez, LUL is Primary Nurse. cm10 12:15 Triage completed. cm10 12:16 Arm band placed on right wrist. Patient placed in an exam room, on a stretcher. cm10 12:35 Left nephrostomy tube. Irrigation unsuccessful. pt tolerated well. Dr. Schneider made cm10 aware. 13:24 CT Abd/Pelvis - Without Contrast In Process Unspecified. EDMS 13:43 Inserted saline lock: 22 gauge in right forearm, using aseptic technique. Blood kb4 collected. Flushed with 10 mL NS. 13:44 Initial lab(s) drawn, by me, sent to lab. kb4 13:45 Patient has correct armband on for positive identification. Bed in low position. Call cm10 light in reach. Side rails up X2. Provided Education on: ER process and procedures.. 14:28 Removal of Removed sutures from forehead Suture site is well healed Patient tolerated cm10 well. 16:25 No provider procedures requiring assistance completed. IV discontinued, intact, cm10 bleeding controlled, No redness/swelling at site. Pressure dressing applied. Administered Medications: No medications were administered Medication: 13:44 VIS not applicable for this client. cm10 Outcome: 14:10 Discharge ordered by . ashley 15:37 Patient left the ED. kc6 16:25 Discharged to [facility]. cm10 16:25 Condition: good 16:25 Discharge instructions given to patient, [facility], Instructed on discharge instructions, follow up and referral plans. Demonstrated understanding of instructions, follow-up care, Signatures: Dispatcher [employer] Paola Roth Kaitlyn, RN RN kc6 Karol Gutierrez RN RN cm10 Marlon Schneider MD MD ec2 Cynthia Orellana kb4
--- NOTE | 2024-03-26 14:11 | EDPHYS ---
Physician Documentation [facility] Name: Enzo Person Age: 83 yrs Sex: Male : 1940 Arrival Date: 03/26/2024 Time: 12:10 Bed 7 Private MD: ED Physician Marlon Schneider HPI: 03/26 12:42 This 83 yrs old Male presents to ER via EMS with complaints of Nephrostomy ec2 tube problem. 12:42 Patient arrives today for evaluation of nephrostomy tube issues. Patient has a ec2 indwelling left-sided nephrostomy tube that is no longer draining. Denies any abdominal pain, no fevers or chills or nausea or vomiting.. Historical: - Allergies: 12:16 PENICILLINS; cm10 - PMHx: 12:16 Anemia; benign prostatic hyperplasia (UTI); CKD; Hypothyroidism; UTI; cm10 - Immunization history:: Adult Immunizations up to date. - Infectious Disease History:: Denies. - Social history:: Smoking status: Patient denies any tobacco usage or history of. ROS: 12:42 Constitutional: as per hpi ec2 Exam: 12:42 Constitutional: GEN: NAD Head: atraumatic Eyes: EOMI Ears: External ears are ec2 normal. CV: regular rate LUNGS: no respiratory distress ABD: non-distended, soft, nontender, not guarding, not rigid. Left-sided neph tube shows no erythema or fluctuance appreciated SKIN: no evidence of rashes MSK: no evidence of trauma Vital Signs: 12:14 BP 126 / 52; Pulse 83; Resp 15; Temp 98.6; Pulse Ox 99% on R/A; Weight 52.16 kg; Height cm10 5 ft. 7 in. ; Pain 0/10; 13:43 BP 115 / 50; Pulse 78; Resp 15; Pulse Ox 100% ; cm10 14:16 BP 105 / 42; Pulse 70; Resp 15 S; Pulse Ox 100% on R/A; kc6 12:14 Body Mass Index 18.01 (52.16 kg, 170.18 cm) cm10 12:14 Pain Scale: Adult cm10 MDM: 12:13 Medical Screening Exam initiated ec2 12:42 Data reviewed: vital signs, nurses notes. ED course: Patient arrives today for ec2 evaluation of left-sided neph tube no longer functioning. Examination is unrevealing. Nursing attempted bedside irrigation however were not able to pull back fluid. Patient does have a right sided indwelling neph tube that is appropriately draining as well as a Shell catheter that is appropriately draining. Will obtain lab work as well as CT imaging.. 14:10 ED course: CT imaging shows likely retracted left nephrostomy tube. No hydronephrosis ec2 noted. Patient without any abdominal pain. Patient to follow-up with urology to have this removed on an on emergent basis.. 14:11 ED course: Patient renal function improved compared to most recent set of lab work.. ec2 03/26 12:38 Order name: CBC with Diff; Complete Time: 14:10 ec2 03/26 12:38 Order name: BMP; Complete Time: 14:10 ec2 03/26 12:38 Order name: CT Abd/Pelvis - Without Contrast; Complete Time: 13:49 ec2 03/26 12:13 Order name: Misc. Order: flush L neph tube; Complete Time: 13:43 ec2 Administered Medications: No medications were administered Disposition Summary: 03/26/24 14:10 Discharge Ordered Condition: Stable ec2 Diagnosis - Other mechanical complication of nephrostomy catheter, initial encounter ec2 Followup: ec2 - With: Private Physician - When: - Reason: Re-evaluation by your physician Discharge Instructions: - Discharge Summary Sheet ec2 Forms: - Medication Reconciliation Form ec2 - Antibiotic Education ec2 - Prescription Opioid Use ec2 - Patient Portal Instructions ec2 - Leadership Thank You Letter ec2 Signatures: Dispatcher [employer] Karol Espinal RN RN cm10 Marlon Schneider MD MD ec2 Corrections: (The following items were deleted from the chart) 12:38 12:38 Abdomen Pelvis Wo Con+CT.RAD.BRZ ordered. NORMAN AUSTIN
[2024-03-26 16:01] VITALS: TEMP 98.6
[2024-03-26 16:07] VITALS: O2SAT 100
[2024-03-26 16:12] VITALS: BP 105/42
== END 2024-03-26 15:37 | disposition home or self-care (01) ==
LOC: ER 12:10
DX: T83.092A Other mechanical complication of nephrostomy catheter, initial encounter (principal)
CPT/HCPCS: 36415; 74176; 80048; 85025; 99284

== ENCOUNTER 2024-04-18 11:50 | Inpatient (IN) | payer OTHER ==
[2024-04-18 13:36] LABS: Absolute Lymphocytes (CBC) 0.5 K/uL (0.7-4.9); Absolute Monocytes 0.9 K/uL (0.1-1.3); Absolute Neutrophil 8.5 K/uL (1.8-8.0); Basophils % 0.2 % (0-1.3); Hematocrit 27.1 % (39.6-49.0); Hemoglobin 9.2 g/dL (13.6-17.9); Lymphocytes % 4.8 % (15.3-44.8); MCH 32.7 pg (27.0-35.0); MCHC 33.9 g/dL (32.0-36.0); MCV 96.4 fL (80-100); MPV 10.3 fL (7.6-11.3); Monocytes % 9.3 % (3.3-12.3); Neutrophils % 85.7 % (41.7-73.7); Platelets 186 thou/uL (152-406); RBC Red Blood Cell Count 2.81 M/uL (4.33-5.43); Red Cell Distribution Width 15.9 % (12.1-15.2)
[2024-04-18 13:47] LABS: PT Prothrombin Time 12.4 SECONDS (10.0-13.0); PTT, Activated Partial Thromb 27.7 SECONDS (24.3-36.9); Protime INR 1.09
[2024-04-18 13:51] LABS: Influenza A Ag Negative; Influenza B Ag Negative; SARS-CoV-2 Antigen Rapid Res Negative (Negative)
[2024-04-18 13:57] LABS: AST/SGOT 17 U/L (15-37); Albumin 2.6 g/dL (3.4-5.0); Albumin/Globulin Ratio 0.7 (1.1-1.8); Alkaline Phosphatase 70 U/L (45-117); Anion Gap 11.6 mEq/L (5.0-15.0); BUN Blood Urea Nitrogen 84 mg/dL (7-18); Bicarbonate 22 mEq/L (21-32); Bilirubin Total 0.3 mg/dL (0.2-1.0); Glomerular Filtration Rate 12 ml/min (=/>90); Glucose Level 132 mg/dL (74-106); NT PRO-BNP 594 pg/mL (<450); Potassium 4.6 mEq/L (3.5-5.1); Protein, Total 6.6 g/dL (6.4-8.2); Sodium Level 139 mEq/L (136-145)
[2024-04-18 13:59] LABS: Specific Gravity 1.014 (1.005-1.030); Sqamous Epithelial None Seen /HPF (None Seen); Urine Bacteria 20-50 /HPF (<20); Urine Bilirubin NEGATIVE (Negative); Urine Blood 2+ (Negative); Urine Clarity Extremely Turbid (Clear); Urine Color Light-Orange (Yellow); Urine Crystals Unidentified Few /HPF (None Seen); Urine Culture Reflex Order REFLEXED; Urine Glucose NEGATIVE (Negative); Urine Ketones NEGATIVE (Negative); Urine Microscopic Reflex YN ORDER UMIC; Urine Mucus 1+ /HPF (None Seen); Urine Nitrite 2+ (Negative); Urine Protein 2+ (Negative); Urine RBC 21-50 /HPF (None Seen); Urine Urobilinogen Normal (Normal); Urine WBC >50 /HPF (<5); Urine WBC Clump Moderate /HPF (None Seen); Urine pH 5.5 (5.0-7.0)
[2024-04-18 13:59] LABS: ALT/SGPT < 14 U/L (16-61)
--- NOTE | 2024-04-18 14:03 | RAD REPORT ---
EXAM: Chest Single View HISTORY: 83 years Male AMS COMPARISON: 03/05/2024 FINDINGS: LUNGS/PLEURA: Nonspecific increased prominence of the pulmonary interstitium. CARDIAC/MEDIASTINUM: The cardiac silhouette is within normal limits. UPPER ABDOMEN: No significant abnormality. BONES: No acute abnormality. LINES/TUBES/OTHER: N/A IMPRESSION: Increased interstitial prominence could reflect developing edema.
[2024-04-18] MEDS ORDERED: CEFEPIME 1 GM/VIAL ONE (15:02)
[2024-04-18] MEDS ORDERED: NA CHLORIDE 0.9% 100 ML ONE (15:02)
--- NOTE | 2024-04-18 15:05 | RAD REPORT ---
EXAMINATION: CT ABDOMEN AND PELVIS WITHOUT CONTRAST CLINICAL INDICATION: Male, 83 years old.AMS, UTI TECHNIQUE: CT abdomen and pelvis was performed, without IV contrast, as per department protocol. Axia l, sagittal and coronal reconstructions were obtained. One or more of the following dose reduction techniques were used: Automated exposure control, adjustment of the mA and/or kV according to the pat ient size, and/or iterative reconstruction. Unless otherwise specified, incidental findings do not require dedicated imaging follow-up. [id number]. IV CONTRAST: Not administered. COMPARISON: 03/26/2024 FINDINGS: The lack of intravenous contrast limits the sensitivity of this exam for evaluation of solid visceral organs, vascular structures, and retroperitoneum. LOWER CHEST: No acute process identified.No significant pericardial effusion. Mild coronary artery ca lcifications. UPPER GI: No significant abnormality. LIVER: Benign appearing low density liver lesions. No suspicious mass. GALLBLADDER/BILE DUCTS: No biliary ductal dilatation.? PANCREAS: No mass, ductal dilation, or michi-pancreatic fluid. SPLEEN: Unremarkable. ADRENALS: Adrenal thickening without discrete mass. KIDNEYS AND URETERS: Similar mild right-sided hydroureteronephrosis. Bilateral ureteral stents. Right nephrostomy tube retracted somewhat probably into a renal calyx, similarLow density and/or too small to characterize renal lesions which are statistically benign.No renal calculi.The left nephrost harpreet tube has been removed. ABDOMINAL AORTA AND OTHER VESSELS: Mild atherosclerotic changes. PERITONEUM: No abnormal free fluid. No free air. LYMPH NODES: No pathologic lymphadenopathy. ABDOMINAL WALL: Unremarkable SMALL BOWEL/COLON: Small bowel has normal course and caliber. No colonic wall thickening or pericolon ic inflammatory changes. Mild diverticulosis without diverticulitis. Mild formed stool burden. URINARY BLADDER: Circumferential thickening which may be secondary to chronic bladder outlet obstruct ion. Bilateral ureteral stents in place. Shell catheter with balloon deployed in the membranous urethra. REPRODUCTIVE ORGANS: Severe prostatomegaly. Prostate measures 6.2 cm in transverse dimension MUSCULOSKELETAL: Multilevel degenerative changes in the spine. No acute fracture. ADDITIONAL FINDINGS: None. IMPRESSION: Shell catheter balloon within the membranous urethra. Recommend repositioning/replacement. THIS REPOR T CONTAINS FINDINGS THAT MAY BE CRITICAL TO PATIENT CARE. The emergent findings were communicated to Dr. Erin Garcia on 04/18/2024 3:02 PM. Ancillary findings as noted above.
--- NOTE | 2024-04-18 15:14 | ER ---
Nurse's Notes [facility] Name: Enzo Person Age: 83 yrs Sex: Male : 1940 Arrival Date: 04/18/2024 Time: 11:50 Bed 15 Private MD: Diagnosis: UTI/ Urinary tract infection, site not specified;Altered mental status, unspecified Presentation: 04/18 12:18 Chief complaint: EMS states: From [place], became weak and lethargic during physical ph therapy, pt's only complaint is fatigue. 12:29 Coronavirus screen: Vaccine status: Patient reports receiving the 2nd dose of the covid ph vaccine. Ebola Screen: No symptoms or risks identified at this time. Initial Sepsis Screen: Does the patient meet any 2 criteria? No. Patient's initial sepsis screen is negative. Does the patient have a suspected source of infection? No. Patient's initial sepsis screen is negative. Risk Assessment: Do you want to hurt yourself or someone else? Patient reports no desire to harm self or others. Onset of symptoms was April 18, 2024. 12:29 Method Of Arrival: EMS: [facility] 12:29 Acuity: HUMERA 3 ph Triage Assessment: 12:30 General: Appears in no apparent distress. comfortable, Behavior is calm, cooperative, ph Reports fatigue for. Pain: Denies pain. Neuro: Level of Consciousness is awake, obeys commands, lethargic, Oriented to person, place, time, situation. Cardiovascular: Capillary refill < 3 seconds in bilateral fingers Patient's skin is warm and dry. Respiratory: Airway is patent Respiratory effort is even, unlabored, Respiratory pattern is regular, symmetrical. GI: Abdomen is non-distended. : to gravity drainage nephrostomy R side. : Shell in place to gravity drainage. Derm: Skin is pink, warm \T\ dry. Bruising that is on right eye light purple. Musculoskeletal: Range of motion: intact in all extremities. Historical: - Allergies: 12:29 PENICILLINS; ph - PMHx: 12:29 Anemia; benign prostatic hyperplasia (UTI); CKD; Hypothyroidism; UTI; ph - Immunization history:: Adult Immunizations unknown. - Infectious Disease History:: Denies. - Family history:: not pertinent. - Hospitalizations: : No recent hospitalization is reported. - Social history:: Smoking status: Patient denies any tobacco usage or history of. Screenin:30 [facility] ED Fall Risk Assessment (Adult) History of falling in the last 3 months, ph including since admission Yes- fall prone (multiple falls) (3 pts) Confusion or Disorientation No (0 pts) Intoxicated or Sedated No (0 pts) Impaired Gait No (0 pts) Mobility Assist Device Used Yes (1 pt) Altered Elimination Yes (1 pt) Score/Fall Risk Level 3 or more points = High Risk Oriented to surroundings, Maintained a safe environment, Hourly rounding (assess needs \T\ fall precautionary measures) done, Used ambulatory aids as needed (educated on \T\ assisted with). Abuse screen: Denies threats or abuse. Denies injuries from another. 14:59 Nutritional screening: No deficits noted. Tuberculosis screening: No symptoms or risk ph factors identified. Assessment: 14:06 Reassessment: Patient appears in no apparent distress at this time. Patient and/or ph family updated on plan of care and expected duration. Pain level reassessed. Pt resting quietly w/ eye closed, respirations even and unlabored. 19:00 General: Appears in no apparent distress. Behavior is calm, cooperative, sleeping. rg5 Pain: Denies pain. 19:00 Cardiovascular: Patient's skin is warm and dry. Respiratory: Airway is patent Trachea rg5 midline Respiratory effort is even, unlabored, Breath sounds are clear. Vital Signs: 12:29 BP 124 / 54; Pulse 82; Resp 18; Temp 97.9; Pulse Ox 95% on R/A; Weight 54.43 kg; ph 13:45 BP 125 / 51; Pulse 86; Resp 18; Pulse Ox 98% on R/A; ph 14:55 BP 116 / 65; Pulse 81; Resp 18; Pulse Ox 98% on R/A; ph 16:00 BP 112 / 70; Pulse 84; Resp 18; Pulse Ox 98% on R/A; ph 17:00 BP 122 / 57; Pulse 76; Resp 18; Pulse Ox 99% on R/A; ph 18:00 BP 127 / 60; Pulse 80; Resp 18; Pulse Ox 100% on R/A; ph 19:00 BP 108 / 50; Pulse 82; Resp 18; Pulse Ox 95% on R/A; Pain 0/10; rg5 19:00 Pain Scale: Adult rg5 ED Course: 11:58 Patient arrived in ED. bd 11:59 Henri Garcia MD is Attending Physician. rn 12:18 Venus Walton RN is Primary Nurse. ph 12:30 Triage completed. ph 12:30 Arm band placed on Patient placed in an exam room, on a stretcher, on pulse oximetry. ph 13:28 Chest Single View XRAY In Process Unspecified. EDMS 13:35 Initial lab(s) drawn, by me, sent to lab. First set of blood cultures drawn by me, ph Second set of blood cultures drawn by me, Urine collected: nephrostomy. 14:08 Maintain EMS IV. Dressing intact. Good blood return noted. Site clean \T\ dry. Gauge \T\ ph site: 20 LAC. Flushed with 10 mL NS. 14:09 Patient has correct armband on for positive identification. Bed in low position. Call ph light in reach. Side rails up X2. Client placed on continuous cardiac and pulse oximetry monitoring. NIBP monitoring applied. towel inspector on. Door closed. Noise minimized. Lights dimmed. Warm blanket given. Pillow given. 14:39 CT Abd/Pelvis - Without Contrast In Process Unspecified. EDMS 14:58 No provider procedures requiring assistance completed. ph 15:00 Shell cath inserted, using sterile technique, 18 Fr., by me, balloon inflated, to ph gravity drainage. Patient admitted, IV remains in place. 15:13 J Carlos Stewart PA is Hospitalizing Provider. rn 19:00 Provided Education on: needs for admit. rg5 04/19 06:49 Cleaned of incontinence. Linen changed. cp4 09:34 Primary Nurse role handed off by Venus Walton RN ph 12:23 initiated transfer to [facility]. bd Administered Medications: 04/18 16:21 Drug: Cefepime IVPB 1 grams IVPB at 200 ml/hr once over 30 mins; (mix in NS 100 mL) ph Route: IVPB; Rate: 200 ml/hr; Infused Over: 30 mins; Site: left forearm; 16:55 Follow up: Response: No adverse reaction; IV Status: Completed infusion ph Medication: 14:10 VIS not applicable for this client. ph Outcome: 15:14 Decision to Hospitalize by Provider. rn 19:00 Admitted to ER Hold. Please see [facility] for further documentation. rg5 19:00 Condition: stable 19:00 Instructed on the need for admit, 04/19 13:41 Patient left the ED. bd Signatures: Dispatcher [employer] EDMS Adelaide Allan Roman, MD MD rn Hall, Patricia, RN RN Patience Horne cp4 Derrell Tabor RN RN rg5 Corrections: (The following items were deleted from the chart) 04/18 14:09 14:06 Reassessment: Patient appears in no apparent distress at this time. Patient ph and/or family updated on plan of care and expected duration. Pain level reassessed. ph
--- NOTE | 2024-04-18 15:14 | EDPHYS ---
Physician Documentation [facility] Name: Enzo Person Age: 83 yrs Sex: Male : 1940 Arrival Date: 04/18/2024 Time: 11:50 Bed 15 Private MD: ED Physician Henri Garcia HPI: 04/18 12:35 This 83 yrs old Male presents to ER via EMS with complaints of AMS. rn 12:35 The patient presents with decreased responsiveness. Onset: The symptoms/episode rn began/occurred today. Possible causes: unknown. Current symptoms: In the emergency department the patient's symptoms are unchanged from the initial presentation. It is unknown whether or not the patient has had similar symptoms in the past. EMS was called to the detention for decreased responsiveness and altered mental status. Patient has no complaints. Patient was doing rehab when was noted to be less responsive following exercise. Patient reports feeling tired. No fever or chills. No cough or shortness of breath. No abdominal pain. No vomiting or diarrhea. Patient denies focal pain at this time. EMS reports normal vital signs, afebrile.. Historical: - Allergies: 12:29 PENICILLINS; ph - PMHx: 12:29 Anemia; benign prostatic hyperplasia (UTI); CKD; Hypothyroidism; UTI; ph - Immunization history:: Adult Immunizations unknown. - Infectious Disease History:: Denies. - Family history:: not pertinent. - Hospitalizations: : No recent hospitalization is reported. - Social history:: Smoking status: Patient denies any tobacco usage or history of. ROS: 12:35 Constitutional: Negative for fever, chills, and weight loss, Neck: Negative for injury, rn pain, and swelling, Cardiovascular: Negative for chest pain, palpitations, and edema, Respiratory: Negative for shortness of breath, cough, wheezing, and pleuritic chest pain, Abdomen/GI: Negative for abdominal pain, nausea, vomiting, diarrhea, and constipation, Back: Negative for injury and pain, MS/Extremity: Negative for injury and deformity, Skin: Negative for injury, rash, and discoloration, Neuro: Negative for headache, numbness, tingling, and seizure, Exam: 12:35 Constitutional: This is a well developed, well nourished patient who is somnolent but rn awakens easily to voice Head/Face: Normocephalic, atraumatic. ENT: Dry mucous membranes Cardiovascular: Regular rate and rhythm. No pulse deficits. Respiratory: No increased work of breathing, no retractions or nasal flaring. Abdomen/GI: Soft, non-tender MS/ Extremity: Pulses equal, no cyanosis. Neurovascular intact. Full, normal range of motion. Equal circumference. Neuro: Somnolent, awakens to voice. Oriented to person but not place or time. 4 out of 5 strength throughout, sensation intact, no slurred speech 12:56 ECG was reviewed by the Attending Physician. rn Vital Signs: 12:29 BP 124 / 54; Pulse 82; Resp 18; Temp 97.9; Pulse Ox 95% on R/A; Weight 54.43 kg; ph 13:45 BP 125 / 51; Pulse 86; Resp 18; Pulse Ox 98% on R/A; ph 14:55 BP 116 / 65; Pulse 81; Resp 18; Pulse Ox 98% on R/A; ph 16:00 BP 112 / 70; Pulse 84; Resp 18; Pulse Ox 98% on R/A; ph 17:00 BP 122 / 57; Pulse 76; Resp 18; Pulse Ox 99% on R/A; ph 18:00 BP 127 / 60; Pulse 80; Resp 18; Pulse Ox 100% on R/A; ph 19:00 BP 108 / 50; Pulse 82; Resp 18; Pulse Ox 95% on R/A; Pain 0/10; rg5 19:00 Pain Scale: Adult rg5 MDM: 11:59 Medical Screening Exam initiated rn 15:12 Differential Diagnosis: CVA, pneumonia, UTI, volume depletion. Data reviewed: vital rn signs, nurses notes, lab test result(s), radiologic studies, CT scan, and as a result, I will admit patient. Consideration of Admission/Observation Patient was admitted/placed on observation. Escalation of care including admission/observation considered. Care significantly affected by the following chronic conditions: Chronic Kidney Disease. Counseling: I had a detailed discussion with the patient and/or guardian regarding the historical points, exam findings, and any diagnostic results supporting the discharge/admit diagnosis, lab results, radiology results, the need for further work-up and treatment in the hospital. 16:52 ED course: Shell catheter replaced by nursing staff. Bedside ultrasound confirms rn balloon in bladder.. 04/18 12:02 Order name: Blood Culture Adult (2) rn 04/18 12:02 Order name: CBC with Diff; Complete Time: 16:47 rn 04/18 12:02 Order name: CMP; Complete Time: 14:11 rn 04/18 12:02 Order name: Lactate w/ 2H reflex if indic.; Complete Time: 14:11 rn 04/18 12:02 Order name: Protime (+inr); Complete Time: 13:48 rn 04/18 12:02 Order name: Ptt, Activated; Complete Time: 13:48 rn 04/18 12:02 Order name: Urinalysis w/ reflexes; Complete Time: 14:11 rn 04/18 12:02 Order name: BNP; Complete Time: 14:11 rn 04/18 12:02 Order name: COVID-19 Ag + Flu A+B Ag; Complete Time: 14:11 rn 04/18 13:45 Order name: CBC Smear Scan; Complete Time: 16:47 EDMS 04/18 14:03 Order name: Urine Culture EDMS 04/18 16:38 Order name: Basic Metabolic Panel EDMS 04/18 16:38 Order name: Basic Metabolic Panel EDMS 04/18 16:38 Order name: CBC with Automated Diff EDMS 04/18 16:38 Order name: CBC with Automated Diff EDMS 04/18 16:38 Order name: Magnesium EDMS 04/18 16:38 Order name: Magnesium EDMS 04/18 16:38 Order name: Phosphorus EDMS 04/18 16:38 Order name: Phosphorus EDMS 04/18 12:02 Order name: Chest Single View XRAY; Complete Time: 14:11 rn 04/18 14:25 Order name: CT Abd/Pelvis - Without Contrast; Complete Time: 15:08 rn 04/18 16:46 Order name: Pelvis Complete; Complete Time: 17:48 EDMS 04/18 12:02 Order name: EKG; Complete Time: 12:03 rn 04/18 12:02 Order name: Accucheck; Complete Time: 13:34 rn 04/18 12:02 Order name: Cardiac monitoring; Complete Time: 13:34 rn 04/18 12:02 Order name: EKG - Nurse/Tech; Complete Time: 13:34 rn 04/18 12:02 Order name: IV Saline Lock - Large Bore; Complete Time: 13:34 rn 04/18 12:02 Order name: Labs collected and sent; Complete Time: 13:34 rn 04/18 12:02 Order name: O2 Per Protocol; Complete Time: 13:35 rn 04/18 12:02 Order name: O2 Sat Monitoring; Complete Time: 13:35 rn 04/18 12:02 Order name: Vital Signs; Complete Time: 13:35 rn EC:56 Rate is 90 beats/min. Rhythm is regular. QRS Amelia is Normal. MS interval is normal. QRS rn interval is normal. QT interval is normal. No Q waves. T waves are Normal. No ST changes noted. Clinical impression: Normal ECG. Interpreted by me. Reviewed by me. Administered Medications: 16:21 Drug: Cefepime IVPB 1 grams IVPB at 200 ml/hr once over 30 mins; (mix in NS 100 mL) ph Route: IVPB; Rate: 200 ml/hr; Infused Over: 30 mins; Site: left forearm; 16:55 Follow up: Response: No adverse reaction; IV Status: Completed infusion ph Disposition Summary: 04/18/24 15:14 Hospitalization Ordered Notes: Hospitalization Status: Inpatient Admission rn Provider: J Carlos Stewart rn Condition: Stable rn Problem: new rn Symptoms: are unchanged rn Bed/Room Type: Standard rn Location: Telemetry/MedSurg (Inpatient)(04/19/24 11:59) bd Room Assignment: 412(04/19/24 11:59) bd Diagnosis - UTI/ Urinary tract infection, site not specified rn - Altered mental status, unspecified rn Forms: - Medication Reconciliation Form rn - SBAR form rn - Leadership Thank You Letter rn Signatures: Dispatcher [employer] EDIN Adelaide Allan Roman, MD MD rn Hall, Patricia, RN RN ph Garcia, Cindy, RN RN Corrections: (The following items were deleted from the chart) 12:03 12:03 BLOOD CULTURE*+BA.LAB.BRZ ordered. EDIN EDIN 12:03 12:03 CBC+H.LAB.BRZ ordered. EDIN EDIN 12:03 12:03 COMPREHENSIVE METABOLIC PANEL+C.LAB.BRZ ordered. EDIN EDIN 12:03 12:03 LACTATE+C.LAB.BRZ ordered. EDIN EDIN 12:03 12:03 PROTIME (+INR)+COAG.LAB.BRZ ordered. EDMS EDMS 12: 12:03 PTT, ACTIVATED+COAG.LAB.BRZ ordered. EDMS EDMS 12:03 12:03 Urinalysis+U.LAB.BRZ ordered. EDMS EDMS 12: 12:03 PROBNP+C.LAB.BRZ ordered. EDMS EDMS 12: 12:03 COVID-19 Ag + Flu A+B Ag+I.LAB.BRZ ordered. EDMS EDMS 19:54 15:14 Telemetry/MedSurg (Inpatient) rn 19:54 15:14 rn cg 04/19 11:59 04/18 19:54 BR ER HOLD cg bd 04/19 11:59 04/18 19:54 ERHOLD- [facility]
[2024-04-18 15:45] LABS: Blood Morphology Comment NOT SEEN (NOT SEEN); Platelet Estimate ADEQ; Platelets Clumped NOTED; White Blood Cell Scan OK (OK)
--- NOTE | 2024-04-18 16:24 | P.HP ---
Certification for Inpatient Patient admitted to: Inpatient With expected LOS: >2 Midnights <Carmen Wayne - Last Filed: 04/18/24 17:24> Patient History Date of Service: 04/18/24 Reason for admission: Complicated UTI History of Present Illness: Enzo Izaguirre is an 83 year old male with Pmhx Anemia, benign prostatic hyperplasia (UTI), CKD, Hypothyroidism, UTI who presents to the ED with compla int of fatigue during physical therapy. Enzo has a complicated history with bilateral nephrostomy tubes in the past, multiple misplaced navas catheters, and follows with Dr. Mcgraw outpatient. Laboratory evaluation significant for H&H 11/12, left shift neutrophils 85.7, BUN/creatinine 84/4.64, GFR 12, serum glucose 132, UA suggestive of infectious process. On evaluation, right nephrostomy tube draining well, navas catheter in place without urine drainage, no acute distress but lethargy noted. CT abdomen pelvis reports " similar mild right-sided hydroureteronephrosis. Bilateral ureteral stents. Right nephrostomy tube retracted somewhat probably into the renal calyx, similar low-density and/or too small to characterize renal lesions which are statistically benign. No renal calculi. The left nephrostomy tube has been removed...... Severe prostamegaly. Prostate measures 6.2 cm in transverse dimension.... Navas catheter balloon within the membranous urethra. Recommend repositioning/replacement." Chest x-ray reports "Increased interstitial prominence could reflect developing edema." Enzo be admitted to hospitalist service for further evaluation and treatment c omplex urinary tract infection. - Past Medical/Surgical History Diabetic: No -: hypothyroidism -: BPH with TURP -: Chronic kidney disease stage III -: TURP Psychosocial/ Personal History: Lives alone. He states he likes to lie on the fl oor. Daughter and ex- at bedside. - Social History Smoking Status: Never smoker Alcohol use: No CD- Drugs: No Caffeine use: Yes <Carmen Wayne - Last Filed: 04/18/24 17:24> Date of Service: 04/18/24 <Jimmy Garcia - Last Filed: 04/19/24 06:17> Allergies Penicillins Allergy (Verified 06/10/23 18:02) Itching Home Medications: Acetaminophen [8 Hour Acetaminophen] 650 mg PO Q6H PRN 01/29/24 Cranberry Fruit [Cranberry] 450 mg PO DAILY 01/29/24 Ferrous Sulfate [Ferrous Sulfate*] 325 mg PO TID 01/29/24 Finasteride [Proscar*] 5 mg PO DAILY 01/29/24 Levothyroxine [Synthroid*] 88 mcg PO DAILY 01/29/24 Mirtazapine [Remeron*] 15 mg PO DAILY 01/29/24 Tamsulosin HCl [Flomax] 0.4 mg PO BEDTIME 01/29/24 Tamsulosin [Flomax*] 0.4 mg PO BEDTIME cap 02/09/24 Review of Systems is unable to be obtained <Carmen Wayne - Last Filed: 04/18/24 17:24> Physical Examination - Physical Exam General: In no apparent distress, Oriented x3 HEENT: Atraumatic, Normocephalic, PERRLA Neck: 2+ carotid pulse no bruit, JVD not distended Respiratory: Clear to auscultation bilaterally, Normal air movement Cardiovascular: Normal pulses, Normal S1 S2 Capillary refill: <2 Seconds Gastrointestinal: Normal bowel sounds, Soft and benign Musculoskeletal: No clubbing Integumentary: No rashes Neurological: Normal speech, Normal tone Lymphatics: No axilla or inguinal lymphadenopathy Urinary: Navas catheter, Other (right nephrostomy tube) - Studies Laboratory Data (last 24 hrs) 04/18/24 04/18/24 04/18/24 13:20 13:20 13:20 WBC 10.00 Hgb 9.2 L Hct 27.1 L Plt Count 186 PT 12.4 INR 1.09 APTT 27.7 Sodium 139 Potassium 4.6 BUN 84 H Creatinine 4.64 H Glucose 132 H Total Bilirubin 0.3 AST 17 ALT < 14 L Alkaline Phosphatase 70 <Carmen Wayne - Last Filed: 04/18/24 17:24> - Studies Laboratory Data (last 24 hrs) 04/18/24 04/18/24 04/18/24 13:20 13:20 13:20 WBC 10.00 Hgb 9.2 L Hct 27.1 L Plt Count 186 PT 12.4 INR 1.09 APTT 27.7 Sodium 139 Potassium 4.6 BUN 84 H Creatinine 4.64 H Glucose 132 H Total Bilirubin 0.3 AST 17 ALT < 14 L Alkaline Phosphatase 70 <Jimmy Garcia - Last Filed: 04/19/24 06:17> Assessment and Plan - Plan Assessment and Plan Complicated UTI Right nephrostomy tube Benign prostatic hyperplasia -IV maxipime -follow urine and blood culture -follow up outpatient with Dr. Mcgraw -monitor UOP from right nephrostomy tube and navas catheter -afebrile, left shift Neutrophils -Ultrasound bladder CKD stage III -BUN/creatinine 84/4.64, GFR 12 - Monitor UOP and AM labs Anemia Hypothyroidism - continue home medications - H/H stable DVT ppx heparin Full code- family will revisit this later today LOS 2-3 days Discharge Plan: [facility] Plan to discharge in: 72 Hours - Advance Directives Does patient have a Living Will: No Does patient have a Durable POA for Healthcare: No <Carmen Wayne - Last Filed: 04/18/24 17:24> - Plan Discussed case with DRUG COUNSELOR Tone, reviewed EMR - labs/imaging/prior notes. No evidence of obstruction, nephrostomy tube draining ok, navas replaced and no longer in urethra. no kat hematuria Complicated UTI with nephrostomy tube, ureteral stent, but no obstructive signs/findings on imaging No urology plant utility person at this hospital at this time, and reportedly for next several days. At this time, no urologic procedure needed/indicated. broad spectrum IV Abx given h/o recurrent infxns and procedures if further complicated / obstruction will need to transfer for Urology nephrology consulted confirm home meds <Jimmy Garcia - Last Filed: 04/19/24 06:17>
[2024-04-18] MEDS: HEPARIN 5000 UNIT/ML 1 ML VIAL SQ SCH (17:00)
--- NOTE | 2024-04-18 17:47 | RAD REPORT ---
Pelvis Complete CLINICAL INDICATION: Male 83 years old navas placement, bladder volume TECHNIQUE: Real-time ultrasonography of the pelvis was performed . COMPARISON: CT same day FINDINGS: The bladder visualized with Navas catheter in place. Bladder volume measured 81 cc. IMPRESSION: Navas catheter within the bladder which is partially decompressed. Bladder volume measured at 81 cc.
[2024-04-19] MEDS ORDERED: CEFEPIME 2 GM VIAL ONE ×2 (01:56→08:33)
[2024-04-19] MEDS ORDERED: HEPARIN 5000 UNIT/ML 1 ML VIAL ONE ×2 (01:56→08:33)
[2024-04-19] MEDS ORDERED: NA CHLORIDE 0.9% 100 ML ONE ×2 (01:56→08:33)
[2024-04-19] MEDS: CEFEPIME 2 GM in NA CHLORIDE 0.9% 100 ML IV SCH (01:58)
[2024-04-19 02:48] VITALS: BMI 18.6
[2024-04-19 05:25] LABS: Absolute Lymphocytes (CBC) 3.3 K/uL (0.7-4.9); Absolute Monocytes 1.1 K/uL (0.1-1.3); Absolute Neutrophil 6.9 K/uL (1.8-8.0); Basophils % 0.3 % (0-1.3); Hematocrit 33.5 % (39.6-49.0); Hemoglobin 10.6 g/dL (13.6-17.9); MCH 32.4 pg (27.0-35.0); MCHC 31.6 g/dL (32.0-36.0); MCV 102.4 fL (80-100); MPV 10.8 fL (7.6-11.3); Monocytes % 9.9 % (3.3-12.3); Neutrophils % 60.8 % (41.7-73.7); Nucleated Red Blood Cells % 0.1 % (0-0); Platelets 236 thou/uL (152-406); RBC Red Blood Cell Count 3.27 M/uL (4.33-5.43); Red Cell Distribution Width 16.6 % (12.1-15.2)
[2024-04-19] MEDS ORDERED: ACETAMINOPHEN 325 MG TABLET ONE (05:29)
[2024-04-19] MEDS: ACETAMINOPHEN 325 MG TABLET PO PRN (05:32)
[2024-04-19 05:43] LABS: Anion Gap 21.8 mEq/L (5.0-15.0); Magnesium 2.7 mg/dL (1.6-2.4); Phosphorus 5.4 mg/dL (2.5-4.9); Potassium 4.8 mEq/L (3.5-5.1)
[2024-04-19] MEDS ORDERED: D5W 1,000 ML IV ONE (11:54)
[2024-04-19] MEDS ORDERED: NA CHLORIDE 0.9% 1,000 ML IV SCH (12:00)
--- NOTE | 2024-04-19 12:10 | EKG ---
Test Date: 2024-04-19 Test Time: 05:50:22 Computer Repair Engineer: RV MEASUREMENT RESULTS: Intervals: Rate: 112 WY: 130 QRSD: 78 QT: 312 QTc: 425 [place]: P: 82 WY: 130 QRS: 64 T: 80 INTERPRETIVE STATEMENTS: Sinus tachycardia Otherwise normal ECG Compared to ECG 03/05/2024 10:14:31 Sinus rhythm no longer present ST (T wave) deviation no longer present Electronically Signed On 04-19-24 12:10:09 MANAGER REQUIREMENTS by Cory Kruse
[2024-04-19] MEDS: FERROUS SULFATE 325 MG TAB PO SCH (14:00)
--- NOTE | 2024-04-19 14:07 | P.PN ---
Date of Service: 04/19/24 Subjective Sleeping on examination, noted right nephrostomy tube removed and sitting in a red bag on the counter bladder navas with some blood noted, no urine present Will need to transfer for re-insertion of right nephrostomy tube, transfer initiated to [facility] ROS 10 point ROS as noted above, otherwise negative Physical Exam General: Sleeping, Oriented x2, cooperative HEENT: Atraumatic, Normocephalic, PERRLA Neck: 2+ carotid pulse no bruit, JVD not distended Respiratory: Clear to auscultation bilaterally, Normal air movement, on RA Cardiovascular: Normal pulses, Normal S1 S2 Capillary refill: <2 Seconds Gastrointestinal: Normal bowel sounds, Soft and benign on palpation Musculoskeletal: No clubbing Integumentary: No rashes Neurological: Normal speech, Normal tone Lymphatics: No axilla or inguinal lymphadenopathy Urinary: Navas catheter, Other (right nephrostomy tube) Vitals Reviewed Problem list Complicated UTI Right nephrostomy tube Benign prostatic hyperplasia CKD stage III Metabolic acidosis Anemia Hypothyroidism Assessment and Plan Complicated UTI Right nephrostomy tube-removed Benign prostatic hyperplasia -IV maxipime -follow urine and blood culture -follow up outpatient with Dr. Mcgraw -monitor UOP navas catheter -nephrostomy tube removed -afebrile, left shift Neutrophils -Ultrasound bladder CKD stage III Metabolic acidosis -BUN/creatinine 84/5.0, GFR 11, CO2 12, anion gap 21.8 -ABG pending -Phosphorus 5.4, Mangesium 2.7 -Dr. Robles consulted -Monitor UOP and AM labs -D5W sodium bicarb started Anemia Hypothyroidism - continue home medications - H/H stable DVT ppx heparin Full code- family will revisit this later today LOS 2-3 days Discharge Plan: [facility] Plan to discharge in: 72 Hours
[2024-04-19] MEDS: D5W 1,000 ML with NA BICARB 8.4% 100 MEQ IV SCH (14:23)
--- NOTE | 2024-04-19 15:55 | CON ---
Date of Consultation: 04/19/2024 Reason For Consultation: Elevated BUN, creatinine, UTI. History Of Present Illness: This is an 83-year-old gentleman with significant past medical history o f benign prostate hypertrophy, hypertension, hyperlipidemia, chronic kidney disease secondary to obst ructive uropathy, had acute kidney injury recently, required dialysis, then weaned from dialysis, hyp othyroidism. The patient had multiple catheterization placed with bilateral nephrostomies and multip le misplaced catheters. The patient came to the hospital complaining of weakness, fatigue. Found to have UTI, elevated BUN, creatinine, compared to his baseline with misplaced nephrostomy tube. The p atient apparently nephrotomy tube was dislodged. The patient denied any chest pain, any fever. CT s howed right-sided hydronephrosis with bilateral ureteral stent with right nephrostomy tube retracted. Past Medical History: Includes hypothyroidism, benign prostate hypertrophy, chronic kidney disease s tage 4 secondary to obstructive uropathy, status post acute kidney injury secondary to ATN and obstru ctive uropathy, required dialysis, weaned from dialysis. Past Surgical History: Includes TURP, nephrostomy tubes, bilateral, percutaneous, status post remova l. Social History: Denied smoking. Denied drinking. Denied drug abuse. Lives with family. Allergies: TO PENICILLIN. Home Medications: Include Tylenol, cranberry, finasteride, levothyroxine, Flomax. Review of Systems: Head and Neck: No red eye. No ear pain. GI: Has abdominal pain. : Has hematuria and oliguria, has Shell, bilateral nephrostomy. Retirement Village Manager: Not applicable. Respiratory: No shortness of breath. Cardiovascular: No chest pain. Endocrine: No polydipsia. Skin: No rash. Physical Examination: Vital Signs: When I saw the patient, blood pressure 105/61, pulse of 84, afebrile. Chest: Crackles on the right base. Heart: S1, S2, systolic murmur. Abdomen: Soft, nontender. Extremities: No edema. Neurologic: Alert, sleepy, no focality. Laboratory Data: WBC 11.4, hemoglobin 10.6. Sodium 144, potassium 4.8, bicarb 12, BUN 84, creatinin e 5. Calcium 8.6, phosphorus 5.4, magnesium 2.7. Assessment And Plan: 1. Acute kidney injury on advanced chronic kidney disease secondary to toxic ATN secondary to UTI/obs tructive uropathy. Dislodged his right nephrostomy tube. Superimposed with prerenal dehydration. I am going to start the patient on gentle hydration and we will follow up. 2. Acidosis, high anion gap metabolic acidosis secondary to sepsis and renal failure. We will start the patient on bicarb drip. 3. UTI. Previously was on MRSA. I will dose him with single dose of vancomycin and we will continue to monitor. Follow up culture. We will consult Urology. 4. Anemia of chronic kidney disease. We will send further workup. 5. Obstructive uropathy. The patient going to be transferred. We will follow up. CARLEEN/KD Voice ID: [id number] Report ID: [id number]
[2024-04-19 17:16] LABS: Blood O2 Saturation 95.5 % (92-98.5)
[2024-04-19 17:17] LABS: Arterial Blood Carboxyhemoglob 0.9 % (0-1.5); Blood Gas Oxyhemoglobin 93.8 % (94-97); Blood Gas THB 9.1 g/dl (12-18)
[2024-04-19] MEDS: TAMSULOSIN 0.4 MG SR CAP PO SCH (20:45)
[2024-04-19 21:10] VITALS: BP 100/56; TEMP 98.3
[2024-04-19 22:18] VITALS: O2SAT 94
[2024-04-20] MEDS ORDERED: LEVOTHYROXINE SOD 0.088 MG TAB PO SCH (06:30)
[2024-04-20] MEDS ORDERED: TAMSULOSIN 0.4 MG SR CAP PO SCH (09:00)
[2024-04-20] MEDS ORDERED: CEFEPIME 1 GM in NA CHLORIDE 0.9% 100 ML IV SCH (09:00)
[2024-04-20] MEDS ORDERED: FINASTERIDE 5 MG TAB PO SCH (09:00)
--- NOTE | 2024-04-20 11:05 | EKG ---
Test Date: 2024-04-19 Test Time: 12:43:27 Punch Operator: PAUL MEASUREMENT RESULTS: Intervals: Rate: 146 WV: QRSD: 82 QT: 288 QTc: 448 Melvin: P: WV: QRS: 79 T: 114 INTERPRETIVE STATEMENTS: Supraventricular tachycardia Lateral infarct, age undetermined Abnormal ECG Compared to ECG 04/19/2024 05:50:22 Myocardial infarct finding now present Sinus tachycardia no longer present Electronically Signed On 04-20-24 11:03:51 FORESTRY SUPPORT SPECIALIST by oCry Kruse
--- NOTE | 2024-04-27 06:05 | P.DS ---
Admission Date: 04/18/24 Discharge Date: 04/19/24 Disposition: TRANSFER TO [facility] Discharge Condition: GOOD Reason for Admission: Complicated UTI Brief History of Present Illness: Diagnosis Complicated UTI Right nephrostomy tube Benign prostatic hyperplasia CKD stage III Metabolic acidosis Anemia Hypothyroidism HPI 04/18/24 Enzo Izaguirre is an 83 year old male with Pmhx Anemia, benign prostatic hyperplasia (UTI), CKD, Hypothyroidism, UTI who presents to the ED with complaint of fatigue during physical therapy. Enzo has a complicated history with bilateral nephrostomy tubes in the past, multiple misplaced navas catheters, and follows with Dr. Mcgraw outpatient. Laboratory evaluation significant for H&H 11/12, left shift neutrophils 85.7, BUN/creatinine 84/4.64, GFR 12, serum glucose 132, UA suggestive of infectious process. On evaluation, right nephrostomy tube draining well, navas catheter in place without urine drainage, no acute distress but lethargy noted. CT abdomen pelvis reports " similar mild right-sided hydroureteronephrosis. Bilateral ureteral stents. Right nephrostomy tube retracted somewhat probably into the renal calyx, similar low-density and/or too small to characterize renal lesions which are statistically benign. No renal calculi. The left nephrostomy tube has been removed...... Severe prostamegaly. Prostate measures 6.2 cm in transverse dimension.... Navas catheter balloon within the membranous urethra. Recommend repositioning/replacement." Chest x-ray reports "Increased interstitial prominence could reflect developing edema." Enzo be admitted to hospitalist service for further evaluation and treatment complex urinary tract infection. Hospital Course: Patient was admitted and treated for the following diagnosis. Complicated UTI Right nephrostomy tube-removed Benign prostatic hyperplasia -IV maxipime -follow urine and blood culture NGTD -follow up outpatient with Dr. Mcgraw -monitored UOP naavs catheter- 0 ml -nephrostomy tube removed as patient -afebrile, left shift Neutrophils -Ultrasound bladder reports "Navas catheter within the bladder which is partially decompressed. Bladder volume measured at 81 cc." CKD stage III Metabolic acidosis -BUN/creatinine 84/5.0, GFR 11, CO2 12, anion gap 21.8 -ABG pH 7.34, pCO2 38.6, pO2 68.5, HCO3 20.2 -Phosphorus 5.4, Mangesium 2.7 -Dr. Robles consulted -Monitored UOP and AM labs -D5W sodium bicarb administered Anemia Hypothyroidism - continued home medications - H/H stable On 04/19/2024, Enzo was seen on morning rounds and deemed hemodynamically stable for [facility] for right nephrostomy tube insertion and complicated UTI management. Physical Exam General: Sleeping, Oriented x2, cooperative HEENT: Atraumatic, Normocephalic, PERRLA Neck: 2+ carotid pulse no bruit, JVD not distended Respiratory: Clear to auscultation bilaterally, Normal air movement, on RA Cardiovascular: Normal pulses, Normal S1 S2 Capillary refill: <2 Seconds Gastrointestinal: Normal bowel sounds, Soft and benign on palpation Musculoskeletal: No clubbing Integumentary: No rashes Neurological: Normal speech, Normal tone Lymphatics: No axilla or inguinal lymphadenopathy Urinary: Navas catheter, Other (right nephrostomy tube) Vital Signs/Physical Exam: Temp Pulse Resp BP Pulse Ox 98.3 F 73 18 100/56 L 94 04/19/24 20:00 04/19/24 20:00 04/19/24 20:00 04/19/24 20:00 04/19/24 20:00 Laboratory Data at Discharge: WBC 11.40 thou/uL (4.3-10.9) H 04/19/24 05:05 Hgb 10.6 g/dL (13.6-17.9) L D 04/19/24 05:05 Hct 33.5 % (39.6-49.0) L 04/19/24 05:05 Plt Count 236 thou/uL (152-406) D 04/19/24 05:05 PT 12.4 SECONDS (10.0-13.0) 04/18/24 13:20 INR 1.09 04/18/24 13:20 APTT 27.7 SECONDS (24.3-36.9) 04/18/24 13:20 Sodium 144 mEq/L (136-145) D 04/19/24 05:05 Potassium 4.8 mEq/L (3.5-5.1) 04/19/24 05:05 BUN 84 mg/dL (7-18) H 04/19/24 05:05 Creatinine 5.00 mg/dL (0.70-1.30) H 04/19/24 05:05 Glucose 206 mg/dL (74-106) H 04/19/24 05:05 Phosphorus 5.4 mg/dL (2.5-4.9) H 04/19/24 05:05 Magnesium 2.7 mg/dL (1.6-2.4) H 04/19/24 05:05 Total Bilirubin 0.3 mg/dL (0.2-1.0) 04/18/24 13:20 AST 17 U/L (15-37) 04/18/24 13:20 ALT < 14 U/L (16-61) L 04/18/24 13:20 Alkaline Phosphatase 70 U/L (45-117) 04/18/24 13:20 Home Medications: Acetaminophen [8 Hour Acetaminophen] 650 mg PO Q6H PRN 01/29/24 Cranberry Fruit [Cranberry] 450 mg PO DAILY 01/29/24 Ferrous Sulfate [Ferrous Sulfate*] 325 mg PO TID 01/29/24 Finasteride [Proscar*] 5 mg PO DAILY 01/29/24 Levothyroxine [Synthroid*] 88 mcg PO DAILY 01/29/24 Tamsulosin HCl [Flomax] 0.4 mg PO BEDTIME 01/29/24 Followup: Tone Snell MD [Primary Care Provider] -
== END 2024-04-19 23:06 | disposition short-term general hospital (02) | DRG 698 ==
LOC: ER 11:50 → ERHOLD 16:33 → 4TH 04-19 13:13
PROVIDERS: ADMIT Hospitalist; ATTEND Internal Medicine
DX: T83.512A Infection and inflammatory reaction due to nephrostomy catheter, initial encounter (principal); N17.0 Acute kidney failure with tubular necrosis; E87.20 Acidosis, unspecified; N39.0 Urinary tract infection, site not specified; E03.9 Hypothyroidism, unspecified; N13.9 Obstructive and reflux uropathy, unspecified; I12.9 Hypertensive chronic kidney disease with stage 1 through stage 4 chronic kidney disease, or unspecified chronic kidney disease; N18.30 Chronic kidney disease, stage 3 unspecified; D63.1 Anemia in chronic kidney disease; N40.0 Benign prostatic hyperplasia without lower urinary tract symptoms; Z88.0 Allergy status to penicillin; Z11.52 Encounter for screening for COVID-19; Z79.890 Hormone replacement therapy; Z79.899 Other long term (current) drug therapy
CPT/HCPCS: 36415; 51702; 71045; 74176; 76856; 80048; 80053; 81001; 82805; 83605; 83735; 83880; 84100; 85025; 85610; 85730; 87040; 87077; 87086; 87088; 87186; 87428; 93005; 96365; 99285; J0692; J1644

== ENCOUNTER 2024-05-09 13:19 | Emergency (ER) | payer OTHER ==
[2024-05-09] MEDS ORDERED: NA CHLORIDE 0.9% 1,000 ML ONE (13:42)
--- NOTE | 2024-05-09 14:06 | RAD REPORT ---
EXAMINATION: CT ABDOMEN AND PELVIS WITHOUT CONTRAST CLINICAL INDICATION: FLANK PAIN TECHNIQUE: CT abdomen and pelvis was performed, without IV contrast, as per department protocol. Axia l, sagittal and coronal reconstructions were obtained. One or more of the following dose reduction techniques were used: Automated exposure control, adjustment of the mA and kV according to the patien t size, and iterative reconstruction. Unless otherwise specified, incidental findings do not require dedicated imaging follow-up. COMPARISON: 04/18/2024 FINDINGS: The lack of intravenous contrast limits the sensitivity of this exam for evaluation of solid visceral organs, vascular structures, and retroperitoneum. LOWER CHEST: Mild linear atelectasis in the right lung base. LIVER:24 mm cyst medial right lobe of the liver. No aggressive liver lesion or biliary dilatation. Gr ossly unremarkable gallbladder. SPLEEN: Normal size. No focal lesion. PANCREAS: No mass, ductal dilation, or michi-pancreatic fluid. ADRENALS: Normal; no mass. KIDNEYS AND URETERS: Left-sided percutaneous nephrostomy tube noted. Pigtail of the catheter appears in the inferior aspect left kidney collecting system. There is also a left-sided double-J stent also present. Air is present within the left renal pelvis and calyces. Distal aspect of this stent ma y be abutting the bladder wall. No significant hydronephrosis. Right-sided double-J stent is also in place with mild air present in the collecting system. Several cystic lesions are seen bilaterally. URINARY BLADDER: Thickened wall is seen with air in urinary bladder and moderate decompression. Prost ate gland is quite large. GASTROINTESTINAL TRACT: No evidence of bowel obstruction, significant free fluid, free air or abscess . APPENDIX: Normal appendix. LYMPH NODES: No lymphadenopathy. MUSCULOSKELETAL: Mild lower lumbar degenerative changes. Subtle sclerosis and endplate irregularity a t L4-5. IMPRESSION: Bilateral internal and external catheter/stents as detailed involving the system. Air is present w ithin the system, with bladder wall thickening, cannot exclude infection which may be clinically correlated. Significant prostate enlargement.
[2024-05-09 14:18] LABS: Absolute Eosinophils 0.2 K/uL (0-0.5); Absolute Lymphocytes (CBC) 0.8 K/uL (0.7-4.9); Absolute Monocytes 0.9 K/uL (0.1-1.3); Absolute Neutrophil 3.8 K/uL (1.8-8.0); Basophils % 0.8 % (0-1.3); Eosinophils % 3.9 % (0-4.4); Hematocrit 26.7 % (39.6-49.0); Hemoglobin 8.9 g/dL (13.6-17.9); Lymphocytes % 14.4 % (15.3-44.8); MCH 32.6 pg (27.0-35.0); MCHC 33.1 g/dL (32.0-36.0); MCV 98.4 fL (80-100); MPV 10.3 fL (7.6-11.3); Monocytes % 14.8 % (3.3-12.3); Neutrophils % 66.1 % (41.7-73.7); Nucleated Red Blood Cells % 0.1 % (0-0); Platelets 221 thou/uL (152-406); RBC Red Blood Cell Count 2.72 M/uL (4.33-5.43); Red Cell Distribution Width 15.9 % (12.1-15.2)
[2024-05-09 14:19] LABS: Specific Gravity 1.014 (1.005-1.030); Sqamous Epithelial None Seen /HPF (None Seen); Urine Bacteria 20-50 /HPF (<20); Urine Bilirubin NEGATIVE (Negative); Urine Blood 2+ (Negative); Urine Clarity Extremely Turbid (Clear); Urine Color Yellow (Yellow); Urine Culture Reflex Order REFLEXED; Urine Glucose NEGATIVE (Negative); Urine Ketones NEGATIVE (Negative); Urine Microscopic Reflex YN ORDER UMIC; Urine Mucus Slight /HPF (None Seen); Urine Nitrite NEGATIVE (Negative); Urine Protein 3+ (Negative); Urine RBC >50 /HPF (None Seen); Urine Urobilinogen Normal (Normal); Urine WBC >50 /HPF (<5); Urine WBC Clump Many /HPF (None Seen); Urine Yeast (Budding) Few /HPF (None Seen)
[2024-05-09 14:32] LABS: Albumin 2.4 g/dL (3.4-5.0); Albumin/Globulin Ratio 0.5 (1.1-1.8); Anion Gap 8.8 mEq/L (5.0-15.0); Bilirubin Total 0.2 mg/dL (0.2-1.0); Globulin 4.4 g/dL (2.3-3.5); Potassium 4.8 mEq/L (3.5-5.1); Protein, Total 6.8 g/dL (6.4-8.2)
--- NOTE | 2024-05-09 14:42 | EDPHYS ---
Physician Documentation [facility] Name: Enzo Person Age: 83 yrs Sex: Male : 1940 Arrival Date: 05/09/2024 Time: 13:19 Bed 3 Private MD: Matthew Stanley HPI: 05/09 13:40 This 83 yrs old Male presents to ER via Unassigned with complaints of norberto Nephrostomy tube dislodgement. 13:40 The patient complains of pain in the left mid back and right mid back. The pain does norberto not radiate. Modifying factors: The symptoms are alleviated by nothing. the symptoms are aggravated by movement. Severity of pain: At its worst the pain was. The patient has experienced similar episodes in the past, multiple times. Historical: - Allergies: 13:41 PENICILLINS; bp - PMHx: 13:41 Anemia; benign prostatic hyperplasia (UTI); CKD; Hypothyroidism; UTI; bp - Immunization history:: Adult Immunizations up to date. - Infectious Disease History:: Denies. - Family history:: not pertinent. - Social history:: Smoking status: unknown. ROS: 13:41 Constitutional: Negative for fever, chills, and weight loss, Eyes: Negative for injury, norberto pain, redness, and discharge, ENT: Negative for injury, pain, and discharge, Neck: Negative for injury, pain, and swelling, Cardiovascular: Negative for chest pain, palpitations, and edema, Respiratory: Negative for shortness of breath, cough, wheezing, and pleuritic chest pain, Abdomen/GI: Negative for abdominal pain, nausea, vomiting, diarrhea, and constipation, : Negative for injury, bleeding, discharge, and swelling, MS/Extremity: Negative for injury and deformity, Skin: Negative for injury, rash, and discoloration, Neuro: Negative for headache, weakness, numbness, tingling, and seizure, Psych: Negative for depression, anxiety, suicide ideation, homicidal ideation, and hallucinations, Allergy/Immunology: Negative for hives, rash, and allergies, Endocrine: Negative for neck swelling, polydipsia, polyuria, polyphagia, and marked weight changes, Hematologic/Lymphatic: Negative for swollen nodes, abnormal bleeding, and unusual bruising, 13:41 Back: Positive for flank pain, bilaterally, Exam: 13:41 Constitutional: This is a well developed, well nourished patient who is awake, alert, norberto and in no acute distress. Head/Face: Normocephalic, atraumatic. Eyes: Pupils equal round and reactive to light, extra-ocular motions intact. Lids and lashes normal. Conjunctiva and sclera are non-icteric and not injected. Cornea within normal limits. Periorbital areas with no swelling, redness, or edema. ENT: Nares patent. No nasal discharge, no septal abnormalities noted. Tympanic membranes are normal and external auditory canals are clear. Oropharynx with no redness, swelling, or masses, exudates, or evidence of obstruction, uvula midline. Mucous membranes moist. Neck: Trachea midline, no thyromegaly or masses palpated, and no cervical lymphadenopathy. Supple, full range of motion without nuchal rigidity, or vertebral point tenderness. No Meningismus. Chest/axilla: Normal chest wall appearance and motion. Nontender with no deformity. No lesions are appreciated. Cardiovascular: Regular rate and rhythm with a normal S1 and S2. No gallops, murmurs, or rubs. Normal PMI, no JVD. No pulse deficits. Respiratory: Lungs have equal breath sounds bilaterally, clear to auscultation and percussion. No rales, rhonchi or wheezes noted. No increased work of breathing, no retractions or nasal flaring. Abdomen/GI: Soft, non-tender, with normal bowel sounds. No distension or tympany. No guarding or rebound. No evidence of tenderness throughout. Male : Normal genitalia with no discharge or lesions. Skin: Warm, dry with normal turgor. Normal color with no rashes, no lesions, and no evidence of cellulitis. MS/ Extremity: Pulses equal, no cyanosis. Neurovascular intact. Full, normal range of motion., bilateral aka Neuro: Awake and alert, GCS 15, oriented to person, place, time, and situation. Cranial nerves II-XII grossly intact. Motor strength 5/5 in all extremities. Sensory grossly intact. Cerebellar exam normal. Normal gait. Psych: Awake, alert, with orientation to person, place and time. Behavior, mood, and affect are within normal limits. 13:41 Back: pain, is absent, ROM is normal, normal spinal alignment noted, CVA tenderness, is absent, with nephrostomy, Vital Signs: 13:34 BP 132 / 52; Pulse 76; Resp 16; Temp 98; Pulse Ox 100% ; bp 15:00 BP 121 / 62; Pulse 81; Resp 16; Pulse Ox 100% ; bp 18:56 BP 126 / 55; Pulse 92; Resp 15; Pulse Ox 99% ; cm10 MDM: 13:29 Medical Screening Exam initiated norberto 13:42 Differential diagnosis: pyelonephritis, UTI, pancreatitis. Data reviewed: vital signs, [facility] nurses notes, lab test result(s), radiologic studies, CT scan. Consideration of Admission/Observation Escalation of care including admission/observation considered. I considered the following discharge prescriptions or medication management in the emergency department Medications were administered in the Emergency Department. See MAR. Independent interpretation of the following test(s) in the Emergency Department CT Scan: My interpretation is ct abd pel. Test considered but Not performed: Ultrasound no renal usg. Care significantly affected by the following chronic conditions: uti, bilateral neprostomies, bph. 05/09 13:34 Order name: CBC with Diff; Complete Time: 14:38 [facility] 05/09 13:34 Order name: CMP; Complete Time: 14:38 [facility] 05/09 13:34 Order name: Lipase; Complete Time: 14:38 [facility] 05/09 13:34 Order name: Urinalysis w/ reflexes; Complete Time: 14:38 [facility] 05/09 14:22 Order name: Urine Culture [facility] 05/09 13:34 Order name: CT Abd/Pelvis - Without Contrast; Complete Time: 14:38 [facility] 05/09 13:34 Order name: IV Saline Lock; Complete Time: 13:51 [facility] 05/09 13:34 Order name: Labs collected and sent; Complete Time: 14:07 [facility] Administered Medications: 14:07 Drug: NS 0.9% IV 1000 ml IV at 1 bolus Per protocol; to be given as a bolus over 60 bp minutes Route: IV; Rate: 1 bolus; Site: right forearm; 15:22 Follow up: IV Status: Completed infusion bp 15:03 Not Given (Other Intervention Used): [id number] mg 100 ml IVPB once over 60 mins bp 15:03 Drug: Meropenem IV 1 grams IV at per protocol once; (mix in NS 100 mL) Route: IV; Rate: bp per protocol; Site: right forearm; 15:22 Follow up: IV Status: Completed infusion bp 15:03 Drug: LevOfloxacin PO 500 mg PO once Route: PO; bp 15:22 Follow up: Response: No adverse reaction bp Disposition Summary: 05/09/24 14:42 Transfer Ordered Notes: Transfer Location: [facility] norberto Reason: Higher level of care norberto Condition: Fair norberto Problem: new norberto Symptoms: have improved norberto Accepting Physician: to medicine(05/09/24 19:12) cm10 Diagnosis - Weakness norberto - Anemia, unspecified norberto - Acute cystitis with hematuria - emphesematous pyelo(05/09/24 14:42) norberto - Unspecified kidney failure - Chronic norberto Forms: - Medication Reconciliation Form norberto - SBAR form norberto Signatures: Dispatcher [employer] EDMS Matthew Alvarez MD MD cha Peltier, Brian, RN RN Karol Delgado RN RN cm10 Corrections: (The following items were deleted from the chart) 13:34 13:34 CBC+H.LAB.BRZ ordered. EDMS EDMS 13:34 13:34 COMPREHENSIVE METABOLIC PANEL+C.LAB.BRZ ordered. EDMS EDMS 13:34 13:34 LIPASE+C.LAB.BRZ ordered. EDMS EDMS 13:34 13:34 Urinalysis+U.LAB.BRZ ordered. EDMS EDMS 13:34 13:34 Abdomen Pelvis Wo Con+CT.RAD.BRZ ordered. EDMS EDMS 14:42 14:42 to medicine norberto norberto 14:42 14:42 Acute cystitis with hematuria norberto norberto 14:46 14:42 to medicine norberto norberto 19:12 14:46 to medicine norberto cm10
--- NOTE | 2024-05-09 14:42 | ER ---
Nurse's Notes [facility] Juan Name: Enzo Person Age: 83 yrs Sex: Male : 1940 Arrival Date: 05/09/2024 Time: 13:19 Bed 3 Private MD: Diagnosis: Acute cystitis with hematuria-emphesematous pyelo;Weakness;Anemia, unspecified;Unspecified kidney failure-Chronic Presentation: 05/09 13:34 Chief complaint: EMS states: 911 CALLED BY VINING STAFF FOR SUBJECTIVE DISLODGED bp UROSTOMY. Coronavirus screen: At this time, the client does not indicate any symptoms associated with coronavirus-19. Ebola Screen: No symptoms or risks identified at this time. Initial Sepsis Screen: Does the patient meet any 2 criteria? No. Patient's initial sepsis screen is negative. Does the patient have a suspected source of infection? No. Patient's initial sepsis screen is negative. Risk Assessment: Do you want to hurt yourself or someone else? Patient reports no desire to harm self or others. Onset of symptoms is unknown. 13:34 Method Of Arrival: EMS: [facility] bp 14:20 Acuity: HUMERA 3 cm10 Triage Assessment: 13:41 General: Appears in no apparent distress. comfortable, Behavior is calm, cooperative. bp Pain: Denies pain. EENT: No deficits noted. Neuro: No deficits noted. Cardiovascular: No deficits noted. Respiratory: No deficits noted. GI: No deficits noted. : No signs and/or symptoms were reported regarding the genitourinary system. Derm: No deficits noted. Musculoskeletal: No deficits noted. Historical: - Allergies: 13:41 PENICILLINS; bp - PMHx: 13:41 Anemia; benign prostatic hyperplasia (UTI); CKD; Hypothyroidism; UTI; bp - Immunization history:: Adult Immunizations up to date. - Infectious Disease History:: Denies. - Family history:: not pertinent. - Social history:: Smoking status: unknown. Screenin:20 [facility] ED Fall Risk Assessment (Adult) History of falling in the last 3 months, cm10 including since admission No falls in past 3 months (0 pts) Confusion or Disorientation No (0 pts) Intoxicated or Sedated No (0 pts) Impaired Gait Yes (1 pt) Mobility Assist Device Used Yes (1 pt) Altered Elimination Yes (1 pt) Score/Fall Risk Level 3 or more points = High Risk Oriented to surroundings, Maintained a safe environment, Hourly rounding (assess needs \T\ fall precautionary measures) done. Abuse screen: Denies threats or abuse. Denies injuries from another. Nutritional screening: No deficits noted. Tuberculosis screening: No symptoms or risk factors identified. Assessment: 13:35 General: Appears in no apparent distress. comfortable, Behavior is cooperative, anxious.bp 15:00 Reassessment: No changes from previously documented assessment. Patient is alert, bp oriented x 3, equal unlabored respirations, skin warm/dry/pink. 16:05 Reassessment: Pt removed monitoring equipment and getting out of bed. cm10 16:45 Reassessment: Pt continues to be intermittently confused. trying to get a ride to a bed jb4 in [facility]. Pt placed in room 3 for closer monitoring. 17:30 Reassessment: Patient appears in no apparent distress at this time. No changes from jb4 previously documented assessment. Patient and/or family updated on plan of care and expected duration. Pain level reassessed. 17:45 Reassessment: Pt now sitting outside the room in a chair. Refusing to stay in the room. jb4 18:00 Reassessment: Pt provided with sandwich. Pt spoke with daughter at this time. cm10 18:17 Reassessment: Pts daughter at bedside. cm10 19:04 General: Pt's brief changed at this time. cm10 Vital Signs: 13:34 BP 132 / 52; Pulse 76; Resp 16; Temp 98; Pulse Ox 100% ; bp 15:00 BP 121 / 62; Pulse 81; Resp 16; Pulse Ox 100% ; bp 18:56 BP 126 / 55; Pulse 92; Resp 15; Pulse Ox 99% ; cm10 ED Course: 13:26 Patient arrived in ED. bd 13:29 Matthew Alvarez MD is Attending Physician. norberto 13:34 Jose A Prescott, LUL is Primary Nurse. bp 13:41 Arm band placed on. bp 13:51 Inserted saline lock: 22 gauge in right forearm, using aseptic technique. Blood kb4 collected. Flushed with 10 mL NS. 13:56 CT Abd/Pelvis - Without Contrast In Process Unspecified. EDMS 14:20 Triage completed. cm10 14:20 Patient has correct armband on for positive identification. Bed in low position. Call cm10 light in reach. Side rails up X2. Pulse ox on. NIBP on. 14:51 initiated transfer to [facility]. bd 16:14 Urine Culture Sent. bp 18:29 pt accepted in transfer to [facility] by dr farris admin approval given by sylvester Flores report to be called to [phone]. rm number was not given . 18:32 pt will be going to rm [id number]. bd 18:47 Report given to LUL Chavez at [facility]. cm10 19:12 Provided Education on: Need for transfer. cm10 19:12 Report given to Report given to Obinna with [facility] who assumes care of patient. cm10 19:12 No provider procedures requiring assistance completed. Patient transferred, IV remains cm10 in place. Administered Medications: 14:07 Drug: NS 0.9% IV 1000 ml IV at 1 bolus Per protocol; to be given as a bolus over 60 bp minutes Route: IV; Rate: 1 bolus; Site: right forearm; 15:22 Follow up: IV Status: Completed infusion bp 15:03 Not Given (Other Intervention Used): [id number] mg 100 ml IVPB once over 60 mins bp 15:03 Drug: Meropenem IV 1 grams IV at per protocol once; (mix in NS 100 mL) Route: IV; Rate: bp per protocol; Site: right forearm; 15:22 Follow up: IV Status: Completed infusion bp 15:03 Drug: LevOfloxacin PO 500 mg PO once Route: PO; bp 15:22 Follow up: Response: No adverse reaction bp Medication: 14:20 VIS not applicable for this client. cm10 Outcome: 14:42 ER care complete, transfer ordered by . norberto 19:11 Transferred by ground EMS [facility]. cm10 19:11 Condition: stable 19:11 Instructed on the need for transfer, 19:12 Patient left the ED. cm10 Signatures: Dispatcher [employer] EDMS Adelaide Allan Corey, MD MD cha Bryson, James, RN RN jb4 Jose A Prescott RN RN bp Martinez, Clarissa RN RN cm10 Cynthia Orellana kb4
[2024-05-09] MEDS ORDERED: Meropenem 1000 MG/VIAL IV ONE (14:51)
[2024-05-09] MEDS ORDERED: NA CHLORIDE 0.9% 100 ML ONE (14:52)
[2024-05-09] MEDS ORDERED: levoFLOXacin 250 MG TAB ONE (14:58)
[2024-05-09 19:37] VITALS: TEMP 98
[2024-05-09 19:39] VITALS: BP 126/55; O2SAT 99
== END 2024-05-09 19:12 | disposition short-term general hospital (02) ==
LOC: ER 13:19
DX: D64.9 Anemia, unspecified (principal); N30.01 Acute cystitis with hematuria; N18.9 Chronic kidney disease, unspecified; Z93.6 Other artificial openings of urinary tract status
CPT/HCPCS: 96365; 96361; 87088; 85025; 81001; 87086; 36415; 83690; 80053; 74176; 99285; J2185; J7030

== ENCOUNTER 2024-05-16 08:23 | Inpatient (IN) | payer OTHER ==
[2024-05-16] MEDS ORDERED: ONDANSETRON 4 MG/2 ML VIAL ONE (08:34)
[2024-05-16] MEDS ORDERED: NA CHLORIDE 0.9% 1,000 ML ONE (08:34)
[2024-05-16 08:59] LABS: Absolute Basophils 0.1 K/uL (0-0.5); Absolute Lymphocytes (CBC) 0.4 K/uL (0.7-4.9); Absolute Monocytes 0.5 K/uL (0.1-1.3); Absolute Neutrophil 8.6 K/uL (1.8-8.0); Basophils % 0.6 % (0-1.3); Eosinophils % 0.1 % (0-4.4); Hematocrit 30.8 % (39.6-49.0); Hemoglobin 10.1 g/dL (13.6-17.9); Lymphocytes % 3.8 % (15.3-44.8); MCH 32.8 pg (27.0-35.0); MCHC 32.9 g/dL (32.0-36.0); MCV 99.7 fL (80-100); MPV 9.6 fL (7.6-11.3); Monocytes % 4.8 % (3.3-12.3); Neutrophils % 90.7 % (41.7-73.7); Platelets 299 thou/uL (152-406); RBC Red Blood Cell Count 3.09 M/uL (4.33-5.43)
[2024-05-16 09:11] LABS: Influenza A Ag Negative; Influenza B Ag Negative; SARS-CoV-2 Antigen Rapid Res Negative (Negative)
[2024-05-16 09:18] LABS: Albumin 2.5 g/dL (3.4-5.0); Albumin/Globulin Ratio 0.5 (1.1-1.8); Anion Gap 12.2 mEq/L (5.0-15.0); Bilirubin Total 0.5 mg/dL (0.2-1.0); Globulin 4.8 g/dL (2.3-3.5); Potassium 5.2 mEq/L (3.5-5.1); Protein, Total 7.3 g/dL (6.4-8.2)
[2024-05-16 09:59] LABS: Differential Total Cells Count 100; Lymphocytes 3 % (15-42); Monocytes 2 % (0-10); Segmented Neutrophils 94 % (40-80)
[2024-05-16 10:00] LABS: Blood Morphology Comment NOT SEEN (NOT SEEN); Platelet Estimate ADEQ; Platelets Clumped NOTED
[2024-05-16] MEDS ORDERED: SOD POLYSTYREN SUL 15 GM/60 ML UCUP ONE (10:03)
--- NOTE | 2024-05-16 10:54 | RAD REPORT ---
EXAMINATION: CT ABDOMEN AND PELVIS WITHOUT CONTRAST CLINICAL INDICATION: Abdominal pain TECHNIQUE: CT abdomen and pelvis was performed, as per department protocol. IV contrast and oral was not administered.Axial, sagittal and coronal reconstructions were obtained. One or more of the following dose reduction techniques were used: Automated exposure control, adjustment of the mA and/o r kV according to the patient size, and/or iterative reconstruction. Unless otherwise specified, incidental findings do not require dedicated imaging follow-up. [id number]. COMPARISON: May 09, 2024 FINDINGS: The lack of intravenous and oral contrast limits evaluation of solid organs, vessels and bowel. Bilateral ureteral stents in good position. No hydronephrosis. A Shell catheter has its balloon within the urethra. Marked prostatic enlargement. Bilateral cystic renal masses incompletely evaluated on this exam Hepatic cyst. Spleen, pancreas and adrenals grossly normal. No evidence of diverticulitis. No bowel obstruction IMPRESSION: Bilateral ureteral stents without hydronephrosis Shell catheter with its balloon within the urethra.
--- NOTE | 2024-05-16 11:03 | ER ---
Nurse's Notes [facility] Juan Name: Enzo Person Age: 83 yrs Sex: Male : 1940 Arrival Date: 05/16/2024 Time: 08:23 Bed 2 Private MD: Diagnosis: Chronic kidney disease, stage 4 (severe);Hyperkalemia Presentation: 05/16 08:29 Chief complaint: EMS states: halfway reports vomiting x 3, yesterday with black ss material in the emesis. Pt vomited again this morning. EMS noted that vomitus was mostly bile with dark flecks. Coronavirus screen: Client denies travel out of the [place] in the last 14 days. Ebola Screen: Patient denies exposure to infectious person. Patient denies travel to an Ebola-affected area in the 21 days before illness onset. Initial Sepsis Screen: Does the patient meet any 2 criteria? No. Patient's initial sepsis screen is negative. Does the patient have a suspected source of infection? No. Patient's initial sepsis screen is negative. Risk Assessment: Do you want to hurt yourself or someone else? Patient reports no desire to harm self or others. Onset of symptoms was May 15, 2024. 08:29 Method Of Arrival: EMS: [facility] 08:29 Acuity: HUMERA 3 ss Historical: - Allergies: 08:32 PENICILLINS; ss - PMHx: 08:32 Anemia; benign prostatic hyperplasia (UTI); CKD; Hypothyroidism; UTI; ss - Infectious Disease History:: Denies. - Social history:: Smoking status: Patient denies any tobacco usage or history of. Screenin:50 [facility] ED Fall Risk Assessment (Adult) History of falling in the last 3 months, iw including since admission Yes- single mechanical fall (1 pt) Confusion or Disorientation Yes (5 pts) Intoxicated or Sedated No (0 pts) Impaired Gait Yes (1 pt) Mobility Assist Device Used Yes (1 pt) Altered Elimination No (0 pt) Score/Fall Risk Level 3 or more points = High Risk Oriented to surroundings, Maintained a safe environment. Abuse screen: Denies threats or abuse. Denies injuries from another. Nutritional screening: No deficits noted. Nutritional screening: No deficits noted. Tuberculosis screening: No symptoms or risk factors identified. Assessment: 08:49 General: Appears in no apparent distress. Behavior is calm, cooperative. Pain: Denies iw pain. Neuro: Level of Consciousness is awake, alert, obeys commands, Oriented to Moves all extremities. GI: Abdomen is non-distended, Reports vomiting. Derm: Skin is intact, is fragile, is thin, Skin is dry. Vital Signs: 08:29 BP 126 / 61; Pulse 93; Resp 17; Temp 99.3; Pulse Ox 100% on R/A; Weight 54.43 kg; ss Height 5 ft. 7 in. ; Pain 0/10; 14:14 BP 106 / 55; Pulse 88; Resp 16; Temp 99.1; Pulse Ox 99% on R/A; iw 08:29 Body Mass Index 18.79 (54.43 kg, 170.18 cm) ss 08:29 Pain Scale: Adult ss ED Course: 08:24 Patient arrived in ED. sb4 08:24 Miryam Blackmon PA-C is PHCP. sb4 08:24 Carlos Galvez MD is Attending Physician. sb4 08:32 Triage completed. ss 08:32 Arm band placed on right wrist. ss 08:49 Initial lab(s) drawn, by mi, sent to lab. Inserted saline lock: 22 gauge in left iw antecubital area, using aseptic technique. Blood collected. Flushed with 10 mL NS. 10:11 CT Abd/Pelvis - Without Contrast In Process Unspecified. EDMS 10:19 Cande Dias, RN is Primary Nurse. iw 11:02 Niru Giles MD is Hospitalizing Provider. sb4 Administered Medications: 08:49 Drug: Ondansetron IVP 4 mg IVP once; over 2 minutes Route: IVP; Site: left antecubital; iw 11:53 Follow up: Response: No adverse reaction iw 08:49 Drug: NS 0.9% IV 1000 ml IV at 1 bolus Per protocol; to be given as a bolus over 60 iw minutes Route: IV; Rate: 1 bolus; Site: left antecubital; 11:53 Follow up: IV Status: Completed infusion iw 11:53 Drug: Kayexalate PO 30 grams PO once Route: PO; iw 14:14 Follow up: Response: No adverse reaction iw Medication: 08:50 VIS not applicable for this client. iw Outcome: 11:02 Decision to Hospitalize by Provider. sb4 14:56 Patient left the ED. iw Signatures: Dispatcher [employer] Cande Garza RN RN iw Blanchard, Shelby RN RN Miryam Hill PA-C PA-C sb4
--- NOTE | 2024-05-16 11:03 | EDPHYS ---
Physician Documentation [facility] Name: Enzo Person Age: 83 yrs Sex: Male : 1940 Arrival Date: 05/16/2024 Time: 08:23 Bed 2 Private MD: ED Physician Carlos Galvez HPI: 05/16 08:29 This 83 yrs old Male presents to ER via Unassigned with complaints of Nausea/Vomiting. sb4 08:29 patient reports 3 episodes of emesis throughout the night. states he feels better now. sb4 fdc staff reported the emesis was green with "small black chunks" no diarrhea. patient has no complaints at this time. no nausea, fever, chills, abdominal pain. Historical: - Allergies: 08:32 PENICILLINS; ss - PMHx: 08:32 Anemia; benign prostatic hyperplasia (UTI); CKD; Hypothyroidism; UTI; ss - Infectious Disease History:: Denies. - Social history:: Smoking status: Patient denies any tobacco usage or history of. ROS: 08:29 Constitutional: Negative for fever, chills, and weight loss, sb4 08:29 All other systems are negative, Exam: 08:30 Constitutional: This is a well developed, well nourished patient who is awake, alert, sb4 and in no acute distress. Head/Face: Normocephalic, atraumatic. Eyes: Extra-ocular motions intact. Periorbital areas with no swelling, redness, or edema. ENT: Mucous membranes moist. Cardiovascular: Regular rate and rhythm with a normal S1 and S2. Respiratory: No increased work of breathing, no retractions or nasal flaring. Abdomen/GI: Soft, non-tender, no distension. Skin: Warm, dry with normal turgor. Normal color with no rashes, no lesions, and no evidence of cellulitis. Vital Signs: 08:29 BP 126 / 61; Pulse 93; Resp 17; Temp 99.3; Pulse Ox 100% on R/A; Weight 54.43 kg; ss Height 5 ft. 7 in. ; Pain 0/10; 14:14 BP 106 / 55; Pulse 88; Resp 16; Temp 99.1; Pulse Ox 99% on R/A; iw 08:29 Body Mass Index 18.79 (54.43 kg, 170.18 cm) ss 08:29 Pain Scale: Adult ss MDM: 08:24 Medical Screening Exam initiated sb4 08:30 Differential diagnosis: gastritis, viral gastroenteritis. sb4 11:02 Data reviewed: vital signs, nurses notes, EMS record, fdc records, lab test sb4 result(s), EKG, radiologic studies, and as a result, I will admit patient. Consideration of Admission/Observation Patient was admitted/placed on observation. Management of patient was discussed with the following: Industrial Organization Manager: Dr. Robles, recommends observation. Counseling: I had a detailed discussion with the patient and/or guardian regarding the historical points, exam findings, and any diagnostic results supporting the discharge/admit diagnosis, the need for further work-up and treatment in the hospital. 05/16 08:25 Order name: CBC with Diff; Complete Time: 10:03 sb4 05/16 08:25 Order name: CMP; Complete Time: 09:19 sb4 05/16 08:25 Order name: Lipase; Complete Time: 09:19 sb4 05/16 08:25 Order name: COVID-19 Ag + Flu A+B Ag; Complete Time: 09:12 sb4 05/16 09:38 Order name: Troponin HS; Complete Time: 10:03 sb4 05/16 10:00 Order name: Manual Differential; Complete Time: 10:03 EDMS 05/16 11:15 Order name: Magnesium; Complete Time: 11:52 EDMS 05/16 11:15 Order name: Phosphorus; Complete Time: 11:52 EDMS 05/16 11:15 Order name: Urinalysis w/ reflexes EDPA 05/16 11:15 Order name: Basic Metabolic Panel EDPA 05/16 11:15 Order name: Basic Metabolic Panel EDPA 05/16 11:15 Order name: CBC with Automated Diff EDMS 05/16 11:15 Order name: CBC with Automated Diff EDMS 05/16 09:25 Order name: CT Abd/Pelvis - Without Contrast; Complete Time: 10:56 sb4 05/16 08:25 Order name: IV Saline Lock; Complete Time: 08:49 sb4 05/16 08:25 Order name: Labs collected and sent; Complete Time: 08:49 sb4 05/16 09:38 Order name: EKG - Nurse/Tech; Complete Time: 10:48 sb4 EC:38 Rate is 91 beats/min. Rhythm is regular, Normal Sinus Rhythm. [place] interval is normal at sb4 128 msec. QRS interval is normal at 80 msec. QT interval is normal at 340 msec. No Q waves. Clinical impression: No evidence of ischemia. Interpreted by me. Reviewed by me. Administered Medications: 08:49 Drug: Ondansetron IVP 4 mg IVP once; over 2 minutes Route: IVP; Site: left antecubital; iw 11:53 Follow up: Response: No adverse reaction iw 08:49 Drug: NS 0.9% IV 1000 ml IV at 1 bolus Per protocol; to be given as a bolus over 60 iw minutes Route: IV; Rate: 1 bolus; Site: left antecubital; 11:53 Follow up: IV Status: Completed infusion iw 11:53 Drug: Kayexalate PO 30 grams PO once Route: PO; iw 14:14 Follow up: Response: No adverse reaction iw Disposition Summary: 05/16/24 11:02 Hospitalization Ordered Notes: Hospitalization Status: Observation sb4 Provider: Niru Giles sb4 Condition: Fair sb4 Problem: new sb4 Symptoms: are unchanged sb4 Bed/Room Type: Standard sb4 Location: Telemetry/MedSurg (observation)(05/16/24 14:05) bd Room Assignment: 230(05/16/24 14:05) bd Diagnosis - Chronic kidney disease, stage 4 (severe) sb4 - Hyperkalemia sb4 Forms: - Medication Reconciliation Form sb4 - SBAR form sb4 - Leadership Thank You Letter sb4 Signatures: Dispatcher [employer] EDPA Adelaide Allan Cande Dias RN RN Maryanne Berger RN RN ss Miryam Blackmon PA-C PARichard sb4 Corrections: (The following items were deleted from the chart) 08:25 08:25 CBC+H.LAB.BRZ ordered. EDMS EDMS 08:25 08:25 COMPREHENSIVE METABOLIC PANEL+C.LAB.BRZ ordered. EDMS EDMS 08:25 08:25 LIPASE+C.LAB.BRZ ordered. EDMS EDMS 11:28 11:02 Telemetry/MedSurg (observation) sb4 bd 11:28 11:02 sb4 bd 14:05 11:28 BR ER HOLD bd bd 14:05 11:28 ERHOLD- bd bd
[2024-05-16] MEDS ORDERED: ONDANSETRON 4 MG/2 ML VIAL IV PRN (11:10)
[2024-05-16] MEDS ORDERED: ACETAMINOPHEN 325 MG TABLET PO PRN (11:13)
[2024-05-16] MEDS ORDERED: HYDROCODONE/APAP 5/325 MG TAB PO PRN (11:13)
[2024-05-16] MEDS ORDERED: HYDRALAZINE HCL 20 MG/ML VIAL IV PRN (11:14)
[2024-05-16] MEDS ORDERED: PROMETHAZINE INJ 25 MG/ML AMP IV PRN (11:17)
--- NOTE | 2024-05-16 11:17 | P.HP ---
Certification for Inpatient Patient admitted to: Observation With expected LOS: <2 Midnights Patient will require the following post-hospital care: None Practitioner: I am a practitioner with admitting privileges, knowledge of patient current condition, hospital course, and medical plan of care. Services: Services provided to patient in accordance with Admission requirements found in Title 42 Section 412.3 of the Code of Federal Regulations <Francisco Damon - Last Filed: 05/16/24 17:10> Patient History Date of Service: 05/16/24 Reason for admission: Nausea and Vomitting History of Present Illness: Patient is an 83-year-old male with a past medical history significant for anemia, BPH, CKD, hypothyroidism who presents with complaint of nausea and vomiting onset yesterday. Patient is alert and oriented x 1, noted to be confused and unable to provide any history. [facility] of a [facility]. Per medical records patient is a resident of a [facility]. Patient has a Shell catheter and bilateral nephrostomy tubes. No other signs and symptoms reported. Symptoms are aggravated or relieved by nothing. Patient was brought to the hospital for medical evaluation. - Past Medical/Surgical History Diabetic: No -: hypothyroidism -: BPH with TURP -: Chronic kidney disease stage III -: TURP Psychosocial/ Personal History: Lives alone. He states he likes to lie on the floor. Daughter and ex- at bedside. - Social History Smoking Status: Never smoker Alcohol use: No CD- Drugs: No Caffeine use: Yes Place of Residence: Retirement <Francisco Damon Yelena - Last Filed: 05/16/24 17:10> Date of Service: 05/16/24 <Niru Giles - Last Filed: 05/26/24 13:25> Allergies Penicillins Allergy (Verified 06/10/23 18:02) Itching Home Medications: Acetaminophen [8 Hour Acetaminophen] 650 mg PO Q6H PRN 01/29/24 Finasteride [Proscar*] 5 mg PO DAILY 01/29/24 Levothyroxine [Synthroid*] 88 mcg PO [id number] 01/29/24 Tamsulosin HCl [Flomax] 0.4 mg PO BEDTIME 01/29/24 Mirtazapine 15 mg PO BEDTIME 05/16/24 Review of Systems is unable to be obtained (Unable to assess. patient confused) <Francisco Damon E - Last Filed: 05/16/24 17:10> Physical Examination - Physical Exam General: Alert, Oriented x1 HEENT: Atraumatic, PERRLA, Mucous membr. moist/pink, EOMI, Sclerae nonicteric Neck: Supple, 2+ carotid pulse no bruit, No LAD, Without JVD or thyroid abnormality Respiratory: Clear to auscultation bilaterally, Normal air movement Cardiovascular: No edema, Regular rate/rhythm, Normal S1 S2 Capillary refill: <2 Seconds Gastrointestinal: Normal bowel sounds, Soft and benign, Non-distended, No tenderness Musculoskeletal: No clubbing, No contractures, No tenderness Integumentary: No rashes, No significant lesion, No tenderness/swelling Neurological: Normal speech, Normal tone, Normal affect Lymphatics: No axilla or inguinal lymphadenopathy - Studies Laboratory Data (last 24 hrs) 05/16/24 05/16/24 08:47 08:47 WBC 9.40 Hgb 10.1 L Hct 30.8 L Plt Count 299 Sodium 138 Potassium 5.2 H BUN 63 H Creatinine 4.30 H Glucose 136 H Total Bilirubin 0.5 AST 17 ALT 22 Alkaline Phosphatase 88 Lipase 28 <Francisco Damon E - Last Filed: 05/16/24 17:10> Assessment and Plan - Plan Nausea and vomiting. -- Antiemetics on board. Acute encephalopathy --Unclear etiology. --UA pending. Hypothyroidism --Continue home medication Anemia of chronic disease --H&H stable. --Transfuse if hemoglobin less than 7.0. CKD 5. Hyperkalemia --Patient given Kayexalate in the ER. --Will reassess potassium levels. --Nephrology consulted. Recommendations appreciated. BPH with TURP Nephrostomy tubes --CT abdomen indicates Bilateral ureteral stents without hydronephrosis and Shell catheter with its balloon within the urethra. --Continue home medications --Continue Shell catheter care. DVT prophylais with heparin SubQ Discharge Plan: Home Plan to discharge in: 48 Hours - Advance Directives Does patient have a Living Will: No Does patient have a Durable POA for Healthcare: No - Code Status/Comfort Care Code Status Assessed: Yes Physician Review: Patient Assessed, Agree with Above Assessment and Plan Critical Care: No <Francisco Damon - Last Filed: 05/16/24 17:10> Date of Service: 05/16/24 Patient was seen and examined. Events of the last 24 hours have been noted. Spoke with with NETO regarding patient's clinical picture after evaluating and examining the patient independently. I performed a substantial part of the MDM during this patient's care today. I personally made or approved the documented management plan and acknowledge its risk of complications. I agree with the findings and documentation provided in the NETO's notes. <Niru Giles - Last Filed: 05/26/24 13:25>
[2024-05-16 11:51] LABS: Magnesium 2.7 mg/dL (1.6-2.4); Phosphorus 4.3 mg/dL (2.5-4.9)
[2024-05-16 15:14] VITALS: BMI 18.0
[2024-05-16] MEDS: METHYLPREDNISOLONE 125 MG INJ IV ONE (17:08)
[2024-05-16] MEDS: NACHLORIDE 0.45% 1,000 ML with NA BICARB 8.4% 50 MEQ IV SCH (17:30)
[2024-05-16] MEDS: HEPARIN 5000 UNIT/ML 1 ML VIAL SQ SCH (20:11)
--- NOTE | 2024-05-17 01:42 | CON ---
Date of Consultation: 05/16/2024 Chief Complaint: Acute on chronic kidney injury, hypernatremia. History Of Present Illness: Patient was admitted for nausea and vomiting. Nephrology consultation i s requested for elevated BUN and creatinine level. Patient was found to have hyperkalemia. He has c omplicated history significant for anemia, BPH, chronic kidney disease stage 4, hypothyroidism. He p resented to the emergency room with complaint of nausea, vomiting of 1 day duration. Patient is aler t and oriented x1. He has history of dementia. He has a confusion, cannot provide medical history. The patient has a chronic Shell catheter and history of bilateral nephrostomy tube. Past Medical History: Hypothyroidism, BPH with TURP, chronic kidney disease stage 4 advancing to sta ge , acute kidney injury, obstructive uropathy, TURP. Social History: Denies tobacco or alcohol. Denies drugs. Physical Examination: General: Patient is alert, oriented x1. HEENT: Atraumatic, normocephalic. Neck: Supple. No bruits. LUNGS: Equal chest expansion. No wheezing. No rhonchi. Heart: S1, S2. No pericardial friction rub. Abdomen: Soft, nontender. No rebound. No guarding. Extremities: No edema. No tenderness. Laboratory Data: Sodium 138, potassium 5.2, BUN 63, creatinine 4.3, glucose 136, AST 17, ALT 22, lip ase 28. Hemoglobin 10.1, WBC 9.4, platelet count 299,000. Impression/plan: 1. Patient has nausea and vomiting. Continue antiemetics. 2. Acute encephalopathy. The patient has likely dementia. Continue to rule out urinary tract infect ion. 3. Hypothyroidism. Continue current medication. 4. Anemia due to chronic kidney disease. Monitor hemoglobin level. 5. Acute on chronic kidney injury. Continue adequate hydration. Start IV fluids. Check renal ultra sound. Patient although has chronic hydronephrosis and chronic Shell. The patient developed nausea and vomiting, which may be part of uremic symptomatology. The patient has history of malnutrition. He may require renal replacement therapy if renal function does not improve. The patient has acute k idney injury on advanced chronic kidney disease and previous history of ATN and did not require dialy sis. He has history of metabolic acidosis secondary to sepsis and renal failure. He has chronic Fol ey and needs to be ruled out for urinary tract infection. The patient needs Urology consultation for obstructive uropathy and chronic hydronephrosis. TOM/MODL Voice ID: [id number] Report ID: [id number]
--- NOTE | 2024-05-17 04:36 | P.PN ---
Subjective Date of Service: 05/17/24 Chief Complaint: Nausea and Vomitting Subjective: Improving <Sofi Ledbetter - Last Filed: 05/20/24 10:31> Date of Service: 05/17/24 <Niru Giles - Last Filed: 05/26/24 13:25> Review of Systems 10-point ROS is otherwise unremarkable <Sofi Ledbetter - Last Filed: 05/20/24 10:31> Physical Examination - Vital Signs Temperature: 98.3 F Blood Pressure: 155/65 Pulse: 92 Respirations: 17 Pulse Ox (%): 95 - Physical Exam General: Alert, In no apparent distress, Oriented x3 HEENT: Atraumatic, Normocephalic Neck: 2+ carotid pulse no bruit, JVD not distended Respiratory: Clear to auscultation bilaterally, Normal air movement Cardiovascular: Normal pulses, Regular rate/rhythm Capillary refill: <2 Seconds Gastrointestinal: Normal bowel sounds, Soft and benign Musculoskeletal: No clubbing, No swelling Integumentary: No breakdown, No significant lesion Neurological: Normal speech Urinary: Other (nephrostomy tubes) - Studies Laboratory Data (last 24 hrs) 05/16/24 05/16/24 05/16/24 08:47 08:47 08:47 WBC 9.40 Hgb 10.1 L Hct 30.8 L Plt Count 299 Sodium 138 Potassium 5.2 H BUN 63 H Creatinine 4.30 H Glucose 136 H Phosphorus 4.3 Magnesium 2.7 H Total Bilirubin 0.5 AST 17 ALT 22 Alkaline Phosphatase 88 Lipase 28 <Sofi Ledbetter - Last Filed: 05/20/24 10:31> Assessment And Plan - Current Problems (Diagnosis) (1) Metabolic encephalopathy Status: Acute (2) Acute renal failure Status: Acute Qualifiers: Acute renal failure type: unspecified Qualified Code(s): N17.9 - Acute kidney failure, unspecified (3) Nausea & vomiting Status: Acute Qualifiers: Vomiting type: unspecified Qualified Code(s): R11.2 - Nausea with vomiting, unspecified (4) Anemia in chronic kidney disease (CKD) Status: Acute (5) BPH (benign prostatic hyperplasia) Status: Acute Qualifiers: Lower urinary tract symptom detail: unspecified (6) Nephrostomy present Status: Acute (7) Hyperkalemia Status: Acute - Plan Admit to [facility] -Nephrology consulted -Evaluation for uremia due to worsening kidney function -Sodium bicarb -Trend kidney function -I&O -UA trend culture -Fall precaution -Resume home meds Full code DVT heparin Diet clear liquid Disposition transition back to the senior care after discharge Discharge Plan: Detention Physician Review: Patient Assessed, Agree with Above Assessment and Plan Critical Care: No Time Spent Managing PTS Care (In Minutes): 35 <Sofi Ledbetter - Last Filed: 05/20/24 10:31> Date of Service: 05/17/24 Patient was seen and examined. Events of the last 24 hours have been noted. Spoke with with NETO regarding patient's clinical picture after evaluating and examining the patient independently. I performed a substantial part of the MDM during this patient's care today. I personally made or approved the documented management plan and acknowledge its risk of complications. I agree with the findings and documentation provided in the NETO's notes. <Niru Giles - Last Filed: 05/26/24 13:25>
[2024-05-17 05:57] LABS: Anion Gap 9.3 mEq/L (5.0-15.0); Potassium 4.3 mEq/L (3.5-5.1)
[2024-05-17 06:07] LABS: Absolute Basophils 0.1 K/uL (0-0.5); Absolute Eosinophils 0.1 K/uL (0-0.5); Absolute Lymphocytes (CBC) 0.8 K/uL (0.7-4.9); Absolute Monocytes 0.8 K/uL (0.1-1.3); Absolute Neutrophil 7.3 K/uL (1.8-8.0); Basophils % 0.6 % (0-1.3); Eosinophils % 1.5 % (0-4.4); Hematocrit 27.1 % (39.6-49.0); Hemoglobin 9.1 g/dL (13.6-17.9); Lymphocytes % 8.6 % (15.3-44.8); MCH 32.9 pg (27.0-35.0); MCHC 33.8 g/dL (32.0-36.0); MCV 97.5 fL (80-100); MPV 10.5 fL (7.6-11.3); Monocytes % 8.7 % (3.3-12.3); Neutrophils % 80.6 % (41.7-73.7); Nucleated Red Blood Cells % 0.2 % (0-0); Platelets 235 thou/uL (152-406); RBC Red Blood Cell Count 2.78 M/uL (4.33-5.43); Red Cell Distribution Width 14.9 % (12.1-15.2)
--- NOTE | 2024-05-17 12:20 | EKG ---
Test Date: 2024-05-16 Test Time: 10:30:26 Non Destructive Testing Technician: FRANCIS MEASUREMENT RESULTS: Intervals: Rate: 91 NH: 128 QRSD: 80 QT: 340 QTc: 418 [employer]: P: 80 NH: 128 QRS: 43 T: 68 INTERPRETIVE STATEMENTS: Normal sinus rhythm Nonspecific T wave abnormality Abnormal ECG Compared to ECG 04/19/2024 12:43:27 T-wave abnormality now present Supraventricular tachycardia no longer present Myocardial infarct finding no longer present Electronically Signed On 05-17-24 12:20:12 CDT by Cory Kruse
--- NOTE | 2024-05-17 15:48 | PN ---
Date of Progress Note: 05/17/2024 Subjective: The patient was admitted to the hospital for failure to thrive. The patient had decreased intake. The patient found to have elevation in BUN and creatinine. The patient had nausea and vomiting. Upon arrival to the hospital, the patient found to have BUN up to 63. The patient was started on hydration. The patient has still poor intake. Past Medical History: Includes: 1. Chronic kidney disease advanced stage 4-5 secondary to obstructive uropathy. 2. Hypertension. 3. Hypothyroidism. 4. TURP. The patient over the night started on IV hydration. Kidney function is marginally improved. Physical Examination: Vital Signs: Blood pressure 120/60, pulse of 79, afebrile. Chest: Clear to auscultation. Heart: S1, S2. Systolic murmur. Abdomen: Soft, nontender. Bilateral nephrostomy tube clean urine. Neurologic: Alert. No focality, no tremor. Laboratory Data: Sodium 141, potassium 4.3, bicarb 25, BUN 61, creatinine 3.7. Calcium 7.8, phosphorus 4.3, magnesium 2.7. Albumin 2.5. WBC 9, hemoglobin 9.1. Current Medications: The patient on include Tylenol, sodium bicarb. Assessment And Plan: 1. 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 The patient poor intake with metallic tasting. I had long discussion with the patient regarding the need to initiate renal replacement therapy. The patient in agreement. We will go ahead and place TDC and we will follow up. We will arrange for dialysis tomorrow. 2. Hypertension, controlled, optimal. 3. Acidosis, resolved. Discontinue bicarb. 4. Dehydration. I am going to change IV fluid to normal saline and we will follow up the patient, discontinue bicarb. 5. Hyperkalemia secondary to renal failure, resolved. 6. Anemia of chronic kidney disease, previously had workup. Repeat iron study and we will follow up the patient to decide about IV iron or EDDIE. Time spent exam the patient [id number] reviewing the data lab and the radiology placing order discuss the case with the patient discussing the case with the freight team associate including nursing and hospitalist more than 55 minutes EMORY Voice ID: [id number] Report ID: [id number] MTDQuiana
[2024-05-18 04:54] LABS: Percent Reticulocyte Count 0.58 % (0.4-2.05); RBC Red Blood Cell Count 2.52 M/uL (4.33-5.43)
[2024-05-18 05:28] LABS: Anion Gap 8.9 mEq/L (5.0-15.0); Ferritin 264.7 ng/mL (26-388); Phosphorus 2.7 mg/dL (2.5-4.9); Potassium 3.9 mEq/L (3.5-5.1); Uric Acid 6.2 mg/dL (3.5-7.2)
[2024-05-18 05:38] LABS: Thyroid Stimulating Hormone 4.21 uIU/mL (0.358-3.740)
[2024-05-18] MEDS: NA CHLORIDE 0.9% 1,000 ML IV SCH ×2 (08:00→17:04)
--- NOTE | 2024-05-18 10:54 | PN ---
Date of Progress Note: 05/18/2024 Subjective: The patient was admitted with acute kidney injury, dehydration with uremic symptoms. The patient was started on IV fluid. Kidney function has been improving. The patient still has poor intake. Physical Examination: Vital Signs: Blood pressure 114/59, pulse of 75, afebrile. Chest: Clear to auscultation. Heart: S1, S2. Systolic murmur. Abdomen: Soft, nontender. Continues nephrostomy tube, clean urine. Neurologic: Alert. No focality. Extremities: No edema. Laboratory Data: Hemoglobin 9.1. Sodium 139, potassium 3.9, bicarb 27, BUN down to 50, creatinine 3, GFR of 19, calcium 7.6, phosphorus 2.7, iron saturation 14, albumin 2, TSH 4, PTH 127. Current Medications: The patient is on include: 1. Promethazine. 2. Heparin. 3. Hydralazine. 4. IV fluid. Assessment And Plan: 1. Chronic kidney disease stage 4, slow progression secondary to obstructive uropathy, hypertension nephrosclerosis, marginal uremic symptoms. No hyperkalemia or acidosis. Given the improvement in the kidney function, I do not see the need to proceed with dialysis for the time being. I am going to go ahead and discontinue IV fluid. We will start the patient on Megace to stimulate his appetite and we will follow up. 2. Hypertension, controlled, optimal. 3. Iron deficiency anemia/anemia of chronic kidney disease. We will give Epogen. We will start the patient on IV iron and we will follow up. 4. Secondary hyperparathyroidism. Start calcitriol. The patient will be cleared from the renal standpoint for discharge planning. time spent to exam the patient face to face , reviewing data lab and radiology , placing order , discussing the case with the patient and discussing the case with the steam locomotive firer/fireman including hospitalist and nursing staff >55 min CARLEEN/KD Voice ID: [id number] Report ID: [id number] MAX
[2024-05-18] MEDS: EPOETIN ALFA-EPBX 10,000 UNIT/ML VIAL SQ ONE (10:56)
[2024-05-18] MEDS: SOD FERRIC GLUC COMPLX/SUCROSE 250 MG in NA CHLORIDE 0.9% 250 ML IV SCH (10:57)
[2024-05-18] MEDS: CALCITROL 0.25 MCG CAP PO SCH (11:05)
[2024-05-18] MEDS ORDERED: ENSURE COMPACT 118 ML LIQUID PO SCH (16:30)
[2024-05-18] MEDS: NEPRO SHAKE 237 ML CAN PO SCH (16:30)
[2024-05-18] MEDS: ALBUMIN HUMAN 25% 100 ML IV SCH ×2 (17:04→19:45)
[2024-05-18] MEDS: MEGESTROL 40 MG TAB PO SCH (20:32)
[2024-05-19 05:27] LABS: Absolute Basophils 0.1 K/uL (0-0.5); Absolute Eosinophils 0.3 K/uL (0-0.5); Absolute Monocytes 0.8 K/uL (0.1-1.3); Basophils % 0.9 % (0-1.3); Eosinophils % 5.1 % (0-4.4); Hematocrit 23.9 % (39.6-49.0); Lymphocytes % 15.6 % (15.3-44.8); MCH 32.8 pg (27.0-35.0); MCHC 33.4 g/dL (32.0-36.0); MCV 98.1 fL (80-100); MPV 9.2 fL (7.6-11.3); Monocytes % 13.5 % (3.3-12.3); Neutrophils % 64.9 % (41.7-73.7); Nucleated Red Blood Cells % 0.1 % (0-0); Platelets 268 thou/uL (152-406); RBC Red Blood Cell Count 2.44 M/uL (4.33-5.43); Red Cell Distribution Width 14.5 % (12.1-15.2)
[2024-05-19 05:45] LABS: Albumin 2.6 g/dL (3.4-5.0); Anion Gap 8.6 mEq/L (5.0-15.0); Phosphorus 2.9 mg/dL (2.5-4.9); Potassium 3.6 mEq/L (3.5-5.1)
[2024-05-19] MEDS: POTASSIUM CL SA 10 MEQ TAB PO ONE (07:59)
[2024-05-19] MEDS: POTASSIUM 25 MEQ EFFERV TAB PO ONE (08:42)
--- NOTE | 2024-05-19 10:14 | PN ---
Date of Progress Note: 05/19/2024 Subjective: The patient is doing well. His appetite is better. Physical Examination: Vital Signs: Blood pressure 112/57, pulse of 68, afebrile. Chest: Clear to auscultation. Heart: S1, S2. Regular. Abdomen: Soft, nontender. Extremities: No edema. Neurologic: Alert. No focality. Laboratory Data: Hemoglobin 8. Sodium 143, potassium 3.6, bicarb 26, BUN 39, creatinine 2.8. Calcium 7.9, phosphorus 2.9. Iron saturation 14, ferritin 264. PTH 127. Current Medications: The patient is on include promethazine. The patient received Epogen. The patient is on IV iron, Tylenol, Zofran, KCl, calcitriol, and Megace. Assessment And Plan: 1. Acute on advanced chronic kidney disease. No requirement for dialysis. No uremia. No hyperkalemia. No acidosis. I am going to continue on current management. The patient is cleared from the Renal standpoint for discharge planning. 2. Anemia of iron deficiency anemia/chronic kidney disease, started on IV iron. We will follow up. 3. Hypokalemia. We will supplement cautiously. 4. Hypophosphatemia secondary to poor intake. Continue Megace. 5. Secondary hyperparathyroid. Continue calcitriol. time spent to exam the patient face to face , reviewing data lab and radiology , placing order , discussing the case with the patient and discussing the case with the field marketing team leader including hospitalist and nursing staff >55 min EMORY Voice ID: [id number] Report ID: [id number] MAX
[2024-05-19 11:08] VITALS: O2SAT 97
--- NOTE | 2024-05-19 12:38 | P.DS ---
Admission Date: 05/17/24 Discharge Date: 05/19/24 Reason for Admission: Nausea and Vomitting - Problems (1) Metabolic encephalopathy Status: Acute (2) Acute renal failure Status: Acute Qualifiers: Acute renal failure type: unspecified Qualified Code(s): N17.9 - Acute kidney failure, unspecified (3) Nausea & vomiting Status: Acute Qualifiers: Vomiting type: unspecified Qualified Code(s): R11.2 - Nausea with vomiting, unspecified (4) Anemia in chronic kidney disease (CKD) Status: Acute (5) BPH (benign prostatic hyperplasia) Status: Acute Qualifiers: Lower urinary tract symptom detail: unspecified (6) Nephrostomy present Status: Acute (7) Hyperkalemia Status: Acute Brief History of Present Illness: 83-year-old male with a past medical history significant for anemia, BPH, CKD, hypothyroidism who presents with complaint of nausea and vomiting onset yesterday. Patient is alert and oriented x 1, noted to be confused and unable to provide any history. Patient is a resident of a care home. Per medical records patient is a resident of a care home. Patient has a Shell catheter and bilateral nephrostomy tubes. No other signs and symptoms reported. Symptoms are aggravated or relieved by nothing. Patient was brought to the hospital for medical evaluation. - Physical Exam General: Alert, Oriented x1 HEENT: Atraumatic, PERRLA, Mucous membr. moist/pink, EOMI, Sclerae nonicteric Neck: Supple, 2+ carotid pulse no bruit, No LAD, Without JVD or thyroid abnormality Respiratory: Clear to auscultation bilaterally, Normal air movement Cardiovascular: No edema, Regular rate/rhythm, Normal S1 S2 Capillary refill: <2 Seconds Gastrointestinal: Normal bowel sounds, Soft and benign, Non-distended, No tenderness Musculoskeletal: No clubbing, No contractures, No tenderness Integumentary: No rashes, No significant lesion, No tenderness/swelling Neurological: Normal speech, Normal tone, Normal affect Lymphatics: No axilla or inguinal lymphadenopathy Hospital Course: 83-year-old male with a past medical history significant for anemia, BPH, CKD, hypothyroidism who presents with complaint of nausea and vomiting onset yesterday. Patient is alert and oriented x 1, noted to be confused and unable to provide any history. Patient is a resident of a care home. Per medical records patient is a resident of a care home. Patient has a Shell catheter and bilateral nephrostomy tubes. No other signs and symptoms reported. Symptoms are aggravated or relieved by nothing. Patient was brought to the hospital for medical evaluation. Admitted with dehydration, acute kidney injury, uremic symptoms, seen by nephrology, tolerating diet, stable to discharge to half-way facility follow-up with nephrology after discharge assessment Stage IV CKD follow-up with nephrology after discharge Obstructive uropathy, bilateral nephrostomy [id number] with urology after discharge Uremia, seen by nephrology while inpatient. Hypertension resume home meds Iron deficiency anemia, treated with Epogen and IV iron by nephrology Continue home medicines as previously prescribed GOAL: Clear understanding of disease process INSTRUCTIONS: Physician Discharge Instructions: -Follow-up with PCP in 1 to 2 weeks -Please call Dr. Giles at [phone] if any questions regarding hospital stay -Please call nursing station at [phone] if any nursing or medication questions -Return to the emergency room if symptoms worsen Diet: ADA, low sodium Activity: Fall precautions <Sofi Ledbetter - Last Filed: 05/20/24 10:25> Admission Date: 05/16/24 Discharge Date: 05/19/24 Hospital Course: Patient was seen and examined. Events of the last 24 hours have been noted. Spoke with with NETO regarding patient's clinical picture after evaluating and examining the patient independently. I performed a substantial part of the MDM during this patient's care today. I personally made or approved the documented management plan and acknowledge its risk of complications. I agree with the findings and documentation provided in the NETO's notes. <Niru Giles - Last Filed: 05/26/24 13:26> Disposition: TRANSFER TO [facility] Vital Signs/Physical Exam: Temp Pulse Resp BP Pulse Ox 98.3 F 65 20 108/50 L 97 05/19/24 12:00 05/19/24 12:00 05/19/24 12:00 05/19/24 12:00 05/19/24 08:00 Laboratory Data at Discharge: WBC 6.10 thou/uL (4.3-10.9) 05/19/24 05:07 Hgb 8.0 g/dL (13.6-17.9) L 05/19/24 05:07 Hct 23.9 % (39.6-49.0) L 05/19/24 05:07 Plt Count 268 thou/uL (152-406) 05/19/24 05:07 Sodium 143 mEq/L (136-145) 05/19/24 05:07 Potassium Cancelled 05/19/24 Unknown BUN 39 mg/dL (7-18) H 05/19/24 05:07 Creatinine 2.80 mg/dL (0.70-1.30) H 05/19/24 05:07 Glucose 84 mg/dL (74-106) 05/19/24 05:07 Uric Acid 6.2 mg/dL (3.5-7.2) 05/18/24 04:17 Phosphorus 2.9 mg/dL (2.5-4.9) 05/19/24 05:07 Magnesium 2.7 mg/dL (1.6-2.4) H 05/16/24 08:47 Total Bilirubin 0.5 mg/dL (0.2-1.0) 05/16/24 08:47 AST 17 U/L (15-37) 05/16/24 08:47 ALT 22 U/L (16-61) 05/16/24 08:47 Alkaline Phosphatase 88 U/L (45-117) 05/16/24 08:47 Lipase 28 U/L (13-75) 05/16/24 08:47 <Sofi Ledbetter - Last Filed: 05/20/24 10:25> Vital Signs/Physical Exam: Temp Pulse Resp BP Pulse Ox 98.3 F 92 H 17 155/65 H 95 05/20/24 10:31 05/20/24 10:31 05/20/24 10:31 05/20/24 10:31 05/20/24 10:31 Laboratory Data at Discharge: WBC 6.10 thou/uL (4.3-10.9) 05/19/24 05:07 Hgb 8.0 g/dL (13.6-17.9) L 05/19/24 05:07 Hct 23.9 % (39.6-49.0) L 05/19/24 05:07 Plt Count 268 thou/uL (152-406) 05/19/24 05:07 Sodium 143 mEq/L (136-145) 05/19/24 05:07 Potassium Cancelled 05/19/24 Unknown BUN 39 mg/dL (7-18) H 05/19/24 05:07 Creatinine 2.80 mg/dL (0.70-1.30) H 05/19/24 05:07 Glucose 84 mg/dL (74-106) 05/19/24 05:07 Uric Acid 6.2 mg/dL (3.5-7.2) 05/18/24 04:17 Phosphorus 2.9 mg/dL (2.5-4.9) 05/19/24 05:07 Magnesium 2.7 mg/dL (1.6-2.4) H 05/16/24 08:47 Total Bilirubin 0.5 mg/dL (0.2-1.0) 05/16/24 08:47 AST 17 U/L (15-37) 05/16/24 08:47 ALT 22 U/L (16-61) 05/16/24 08:47 Alkaline Phosphatase 88 U/L (45-117) 05/16/24 08:47 Lipase 28 U/L (13-75) 05/16/24 08:47 <Niru Giles - Last Filed: 05/26/24 13:26> Time spent managing pt's care (in minutes): 45 <Sofi Ledbetter - Last Filed: 05/20/24 10:25> <Niru Giles - Last Filed: 05/26/24 13:26> Home Medications: Acetaminophen [8 Hour Acetaminophen] 650 mg PO Q6H PRN 01/29/24 Finasteride [Proscar*] 5 mg PO DAILY 01/29/24 Levothyroxine [Synthroid*] 88 mcg PO [id number] 01/29/24 Tamsulosin HCl [Flomax] 0.4 mg PO BEDTIME 01/29/24 Mirtazapine 15 mg PO BEDTIME 05/16/24 Physician Discharge Instructions: 83-year-old male with a past medical history significant for anemia, BPH, CKD, hypothyroidism who presents with complaint of nausea and vomiting onset yesterday. Patient is alert and oriented x 1, noted to be confused and unable to provide any history. Patient is a resident of a care home. Per medical records patient is a resident of a care home. Patient has a Shell catheter and bilateral nephrostomy tubes. No other signs and symptoms reported. Symptoms are aggravated or relieved by nothing. Patient was brought to the hospital for medical evaluation. Admitted with dehydration, acute kidney injury, uremic symptoms, seen by nephrology, tolerating diet, stable to discharge to half-way facility follow-up with nephrology after discharge follow-up with urology after discharge for nephrostomy tube Will need 3 more iron infusions after DC ordered nephrology Ferric sodium gluconate 250 mg , 270 mL every 72 hours-will need 3 more infusions assessment Stage IV CKD follow-up with nephrology after discharge Obstructive uropathy, bilateral nephrostomy [id number] with urology after discharge Uremia, seen by nephrology while inpatient. Hypertension resume home meds Iron deficiency anemia, treated with Epogen and IV iron by nephrology Continue home medicines as previously prescribed GOAL: Clear understanding of disease process INSTRUCTIONS: Physician Discharge Instructions: -Follow-up with PCP in 1 to 2 weeks -Please call Dr. Giles at [phone] if any questions regarding hospital stay -Please call nursing station at [phone] if any nursing or medication questions -Return to the emergency room if symptoms worsen Diet: ADA, low sodium Activity: Fall precautions Followup: Brigdett Robles MD [ACTIVE - CAN ADMIT] - 1-2 Weeks Khari Caraballo MD [Primary Care Provider] -
[2024-05-20 10:27] VITALS: BP 155/65; TEMP 98.3
--- NOTE | 2024-05-20 10:34 | P.PN ---
Date of Service: 05/18/24 Subjective Chief Complaint: Nausea and Vomitting Subjective: Improving Review of Systems 10-point ROS is otherwise unremarkable Physical Examination - Vital Signs reviewed - Physical Exam General: Alert, In no apparent distress, afebrile HEENT: Atraumatic, Normocephalic Neck: 2+ carotid pulse no bruit, JVD not distended Respiratory: Clear to auscultation bilaterally, Cardiovascular: Normal pulses, Regular rate/rhythm Capillary refill: <2 Seconds Gastrointestinal: Normal bowel sounds, nontender Musculoskeletal: No clubbing, No swelling Integumentary: No breakdown, No significant lesion Neurological: Normal speech Urinary: Other (nephrostomy tube Assessment And Plan - Current Problems (Diagnosis) (1) Metabolic encephalopathy secondary uremia Status: Acute (2) Acute renal failure Status: Acute Qualifiers: Acute renal failure type: unspecified Qualified Code(s): N17.9 - Acute kidney failure, unspecified (3) Nausea & vomiting Status: Acute Qualifiers: Vomiting type: unspecified Qualified Code(s): R11.2 - Nausea with vomiting, unspecified (4) Anemia in chronic kidney disease (CKD) Status: Acute (5) BPH (benign prostatic hyperplasia) Status: Acute Qualifiers: Lower urinary tract symptom detail: unspecified (6) Nephrostomy present Status: Acute (7) Hyperkalemia Status: Acute - Plan Admit to [facility] -Nephrology consulted -Evaluation for uremia due to worsening kidney function -Sodium bicarb -Trend kidney function -I&O -UA trend culture -Fall precaution -Resume home meds Full code DVT heparin Diet clear liquid Disposition transition back to the assisted after discharge Discharge Plan: Prison Physician Review: Patient Assessed, Agree with Above Assessment and Plan Critical Care: No Time Spent Managing PTS Care (In Minutes): 35 <Sofi Ledbetter - Last Filed: 05/20/24 10:34> Patient was seen and examined. Events of the last 24 hours have been noted. Spoke with with NETO regarding patient's clinical picture after evaluating and examining the patient independently. I performed a substantial part of the MDM during this patient's care today. I personally made or approved the documented management plan and acknowledge its risk of complications. I agree with the findings and documentation provided in the NETO's notes. <Niru Giles - Last Filed: 05/26/24 13:25>
== END 2024-05-19 16:23 | DRG 682 ==
LOC: ER 08:23 → ERHOLD 11:10 → 2ND 14:49 → OBSVTOIN 05-17 18:40
PROVIDERS: ADMIT Hospitalist; ATTEND Hospitalist
DX: N17.9 Acute kidney failure, unspecified (principal); G93.41 Metabolic encephalopathy; E46 Unspecified protein-calorie malnutrition; E87.20 Acidosis, unspecified; I12.0 Hypertensive chronic kidney disease with stage 5 chronic kidney disease or end stage renal disease; E87.0 Hyperosmolality and hypernatremia; Z68.1 Body mass index [BMI] 19.9 or less, adult; D63.1 Anemia in chronic kidney disease; E86.0 Dehydration; E03.9 Hypothyroidism, unspecified; Z93.6 Other artificial openings of urinary tract status; N18.5 Chronic kidney disease, stage 5; N25.81 Secondary hyperparathyroidism of renal origin; E87.5 Hyperkalemia; D50.9 Iron deficiency anemia, unspecified; E87.6 Hypokalemia; R62.7 Adult failure to thrive; N40.1 Benign prostatic hyperplasia with lower urinary tract symptoms; N13.9 Obstructive and reflux uropathy, unspecified; Z11.52 Encounter for screening for COVID-19
CPT/HCPCS: 36415; 74176; 80048; 80053; 80069; 82607; 82728; 83540; 83690; 83735; 83970; 84100; 84439; 84443; 84466; 84484; 84550; 85025; 85044; 86803; 87428; 93005; 96361; 96374; 99284; G0378; J1644; J2405; J2916; J7030; J7050; P9047; Q5106

== ENCOUNTER 2024-06-04 12:22 | Emergency (ER) | payer OTHER ==
[2024-06-04] MEDS ORDERED: CEFTRIAXONE 1000 MG/VIAL ONE (12:46)
[2024-06-04] MEDS ORDERED: NA CHLORIDE 0.9% 1,000 ML ONE (12:46)
--- NOTE | 2024-06-04 13:39 | RAD REPORT ---
EXAM: Chest Single View HISTORY: 83 years Male COUGH COMPARISON: 04/18/2024 FINDINGS: LUNGS/PLEURA: New patchy and ill-defined opacities throughout the right lung. CARDIAC/MEDIASTINUM: The cardiac silhouette is within normal limits. UPPER ABDOMEN: No significant abnormality. BONES: No acute abnormality. LINES/TUBES/OTHER: N/A IMPRESSION: New patchy airspace disease throughout the right lung concerning for pneumonia.
[2024-06-04 13:45] LABS: Absolute Lymphocytes (CBC) 0.7 K/uL (0.7-4.9); Absolute Monocytes 0.7 K/uL (0.1-1.3); Absolute Neutrophil 8.5 K/uL (1.8-8.0); Basophils % 0.2 % (0-1.3); Eosinophils % 0.1 % (0-4.4); Hematocrit 25.5 % (39.6-49.0); Hemoglobin 8.4 g/dL (13.6-17.9); Lymphocytes % 7.2 % (15.3-44.8); MCH 32.2 pg (27.0-35.0); MCHC 32.9 g/dL (32.0-36.0); MCV 97.9 fL (80-100); MPV 10.2 fL (7.6-11.3); Monocytes % 7.2 % (3.3-12.3); Neutrophils % 85.3 % (41.7-73.7); Platelets 387 thou/uL (152-406); RBC Red Blood Cell Count 2.61 M/uL (4.33-5.43)
[2024-06-04 13:52] LABS: PT Prothrombin Time 15.7 SECONDS (10-13.0); Protime INR 1.4
[2024-06-04 14:04] LABS: ALT/SGPT 28 U/L (16-61); AST/SGOT 20 U/L (15-37); Albumin 2.3 g/dL (3.4-5.0); Albumin/Globulin Ratio 0.5 (1.1-1.8); Alkaline Phosphatase 77 U/L (45-117); Anion Gap 12.3 mEq/L (5.0-15.0); BUN Blood Urea Nitrogen 91 mg/dL (7-18); Bicarbonate 23 mEq/L (21-32); Bilirubin Total 0.3 mg/dL (0.2-1.0); Glomerular Filtration Rate 12 ml/min (=/>90); Glucose Level 117 mg/dL (74-106); Magnesium 2.9 mg/dL (1.6-2.4); NT PRO-BNP 1454 pg/mL (<450); Potassium 4.3 mEq/L (3.5-5.1); Protein, Total 7.3 g/dL (6.4-8.2); Sodium Level 140 mEq/L (136-145); Troponin High Sensitivity 7.4 pg/mL (<58.9)
[2024-06-04 14:21] LABS: Bilirubin Direct < 0.2 mg/dL (0-0.2); Bilirubin Indirect, Calculated 0.1 mg/dL (0.2-0.8)
[2024-06-04 14:23] LABS: Specific Gravity 1.017 (1.005-1.030); Sqamous Epithelial None Seen /HPF (None Seen); Urine Bacteria <20 /HPF (<20); Urine Bilirubin NEGATIVE (Negative); Urine Blood 3+ (Negative); Urine Clarity Extremely Turbid (Clear); Urine Color Orange (Yellow); Urine Culture Reflex Order REFLEXED; Urine Glucose NEGATIVE (Negative); Urine Ketones NEGATIVE (Negative); Urine Microscopic Reflex YN ORDER UMIC; Urine Mucus 1+ /HPF (None Seen); Urine Nitrite NEGATIVE (Negative); Urine Protein 3+ (Negative); Urine RBC >50 /HPF (None Seen); Urine Urobilinogen Normal (Normal); Urine WBC 20-50 /HPF (<5); Urine Yeast (Budding) Many /HPF (None Seen); Urine pH 7.5 (5.0-7.0)
[2024-06-04] MEDS ORDERED: AZITHROMYCIN 500 MG INJ IVPB ONE (15:22)
[2024-06-04] MEDS ORDERED: Levofloxacin500mg IV 500 MG/100 ML BAG IV ONE (15:22)
[2024-06-04] MEDS ORDERED: NA CHLORIDE 0.9% 250 ML ONE (15:23)
--- NOTE | 2024-06-04 15:28 | EDPHYS ---
Physician Documentation [facility] Name: Enzo Person Age: 83 yrs Sex: Male : 1940 Arrival Date: 06/04/2024 Time: 12:22 Bed 19 Private MD: ED Physician Matthew Alvarez HPI: 06/04 15:15 This 83 yrs old Male presents to ER via EMS with complaints of Blood Pressure norberto Problem. 15:15 The patient or guardian reports airway noise, cough, described as mild, described as norberto moderate. Onset: The symptoms/episode began/occurred 2 day(s) ago. Modifying factors: The symptoms are alleviated by nothing. the symptoms are aggravated by activity. low bp, cough. Associated signs and symptoms: Pertinent positives: chest pain, fever, ugh , navas, bilateral neprostomy tubes, this patient has no pertinent positive symptoms. Severity of symptoms: At their worst the symptoms were mild in the emergency department the symptoms are unchanged. The patient has not experienced similar symptoms in the past. Historical: - Allergies: 12:38 PENICILLINS; kj2 - PMHx: 12:38 Anemia; benign prostatic hyperplasia (UTI); CKD; Hypothyroidism; UTI; kj2 - Immunization history:: Adult Immunizations unknown. - Infectious Disease History:: Denies. - Social history:: Smoking status: Patient denies any tobacco usage or history of. - Family history:: not pertinent. ROS: 15:15 Constitutional: Negative for fever, chills, and weight loss, Eyes: Negative for injury, norberto pain, redness, and discharge, ENT: Negative for injury, pain, and discharge, Neck: Negative for injury, pain, and swelling, Cardiovascular: Negative for chest pain, palpitations, and edema, Abdomen/GI: Negative for abdominal pain, nausea, vomiting, diarrhea, and constipation, Back: Negative for injury and pain, MS/Extremity: Negative for injury and deformity, Skin: Negative for injury, rash, and discoloration, Psych: Negative for depression, anxiety, suicide ideation, homicidal ideation, and hallucinations, Allergy/Immunology: Negative for hives, rash, and allergies, Endocrine: Negative for neck swelling, polydipsia, polyuria, polyphagia, and marked weight changes, 15:15 Respiratory: Positive for cough, shortness of breath, at rest. 15:15 Back: Positive for pain at rest, bilateral neprostomy tubes, 15:15 Neuro: Positive for altered mental status, weakness, Exam: 15:15 Constitutional: This is a well developed, well nourished patient who is awake, alert, norberto and in no acute distress. Head/Face: Normocephalic, atraumatic. Eyes: Pupils equal round and reactive to light, extra-ocular motions intact. Lids and lashes normal. Conjunctiva and sclera are non-icteric and not injected. Cornea within normal limits. Periorbital areas with no swelling, redness, or edema. ENT: Nares patent. No nasal discharge, no septal abnormalities noted. Tympanic membranes are normal and external auditory canals are clear. Oropharynx with no redness, swelling, or masses, exudates, or evidence of obstruction, uvula midline. Mucous membranes moist. Neck: Trachea midline, no thyromegaly or masses palpated, and no cervical lymphadenopathy. Supple, full range of motion without nuchal rigidity, or vertebral point tenderness. No Meningismus. Chest/axilla: Normal chest wall appearance and motion. Nontender with no deformity. No lesions are appreciated. Cardiovascular: Regular rate and rhythm with a normal S1 and S2. No gallops, murmurs, or rubs. Normal PMI, no JVD. No pulse deficits. Abdomen/GI: Soft, non-tender, with normal bowel sounds. No distension or tympany. No guarding or rebound. No evidence of tenderness throughout. Back: No spinal tenderness. No costovertebral tenderness. Full range of motion. Male : Normal genitalia with no discharge or lesions. Skin: Warm, dry with normal turgor. Normal color with no rashes, no lesions, and no evidence of cellulitis. MS/ Extremity: Pulses equal, no cyanosis. Neurovascular intact. Full, normal range of motion., bilateral aka Psych: Awake, alert, with orientation to person, place and time. Behavior, mood, and affect are within normal limits. 15:15 ECG was reviewed by the Attending Physician. 15:15 Respiratory: the patient does not display signs of respiratory distress, Respirations: labored breathing, is not present, asymmetrical chest movement, is not seen, accessory muscle usage, is absent, Breath sounds: bronchial sounds, that are moderate, are scattered, are heard in the right upper lobe, right middle lobe, right posterior upper lobe and right posterior middle lobe, decreased breath sounds, that are moderate, rhonchi, that are mild, are heard diffusely, are heard in the right posterior upper lobe, right posterior middle lobe and right posterior lower lobe, stridor, is not appreciated, + upper airway congestion. wheezing: expiratory that is mild, is scattered, Vital Signs: 12:35 BP 114 / 54; Pulse 80; Resp 18; Temp 98; Pulse Ox 99% on R/A; Weight 54.43 kg; Height 5 kj2 ft. 7 in. ; 13:40 BP 114 / 48; Pulse 81; Resp 18; Pulse Ox 100% ; kj2 14:40 BP 116 / 56; Pulse 78; Resp 18; Pulse Ox 98% ; kj2 16:30 BP 114 / 50; Pulse 78; Resp 18; kj2 17:30 BP 118 / 54; Pulse 76; Resp 18; Pulse Ox 97% ; kj2 18:22 BP 111 / 50; Pulse 70; Resp 18; Temp 98.1; Pulse Ox 98% ; kj2 12:35 Body Mass Index 18.79 (54.43 kg, 170.18 cm) kj2 MDM: 12:28 Medical Screening Exam initiated norberto 12:32 Medical Screening Exam initiated norberto 15:20 Differential diagnosis: obstructed airway, bronchitis, flu, URI. Antibiotic [facility] administration: Levaquin given, Rocephin and Zithromax given. Differential Diagnosis altered mental status, sepsis, flu. Data reviewed: vital signs, nurses notes, EMS record, lab test result(s), EKG, radiologic studies, CT scan, plain films. Consideration of Admission/Observation Patient was admitted/placed on observation. Escalation of care including admission/observation considered. I considered the following discharge prescriptions or medication management in the emergency department Medications were administered in the Emergency Department. See MAR. Independent interpretation of the following test(s) in the Emergency Department EKG: See my EKG interpretation above CT Scan: My interpretation is ct chest abd pel. Test considered but Not performed: X-ray: . 06/04 12:32 Order name: Basic Metabolic Panel; Complete Time: 15:00 [facility] 06/04 12:32 Order name: CBC with Diff [facility] 06/04 12:32 Order name: LFT's; Complete Time: 15:00 [facility] 06/04 12:32 Order name: Magnesium; Complete Time: 15:00 [facility] 06/04 12:32 Order name: NT PRO-BNP; Complete Time: 15:00 [facility] 06/04 12:32 Order name: PT-INR; Complete Time: 15:00 [facility] 06/04 12:32 Order name: Troponin HS; Complete Time: 15:00 [facility] 06/04 12:32 Order name: Blood Culture Adult (2) [facility] 06/04 12:32 Order name: Lactate w/ 2H reflex if indic.; Complete Time: 15:00 [facility] 06/04 12:32 Order name: Urinalysis w/ reflexes; Complete Time: 15:00 [facility] 06/04 12:34 Order name: Lipase; Complete Time: 15:00 [facility] 06/04 14:34 Order name: CBC Smear Scan [facility] 06/04 14:36 Order name: Urine Culture [facility] 06/04 17:21 Order name: COVID-19 Ag + Flu A+B Ag [facility] 06/04 12:32 Order name: XRAY Chest (1 view); Complete Time: 15:00 [facility] 06/04 15:06 Order name: CT Chest Abdomen Pelvis W/O Contrast; Complete Time: 17:35 [facility] 06/04 12:32 Order name: Cardiac monitoring; Complete Time: 12:47 [facility] 06/04 12:32 Order name: EKG - Nurse/Tech; Complete Time: 12:47 [facility] 06/04 12:32 Order name: IV Saline Lock; Complete Time: 14:02 [facility] 06/04 12:32 Order name: Labs collected and sent; Complete Time: 14:02 [facility] 06/04 12:32 Order name: O2 Per Protocol; Complete Time: 14:02 [facility] 06/04 12:32 Order name: O2 Sat Monitoring; Complete Time: 14:02 [facility] 06/04 16:27 Order name: Navas Leg Bag: replace; Complete Time: 18:10 [facility] EC:15 Rate is 81 beats/min. Rhythm is regular. QRS [place] is Normal. FL interval is normal. QRS norberto interval is normal. QT interval is normal. No Q waves. T waves are Normal. No ST changes noted. Clinical impression: NSR w/ Non-specific ST/T Changes and No evidence of ischemia. Interpreted by me. Reviewed by me. Administered Medications: 14:02 Drug: NS 0.9% IV (30 ml/kg) 30 ml/kg IV at bolus once; Sepsis Protocol; to be given as kj2 a bolus over 90 minutes Route: IV; Rate: bolus; Site: right wrist; 19:36 Follow up: IV Status: Completed infusion; IV Intake: 1632ml kj2 14:02 Drug: Rocephin IV 1 grams IV at per protocol once; Given slow IV push per pharmacy kj2 instructions Route: IV; Rate: per protocol; Site: right wrist; 19:36 Follow up: IV Status: Completed infusion; IV Intake: 10ml kj2 15:02 CANCELLED (Duplicate Order): [id number] mg 100 ml IVPB once over 60 mins norberto 16:12 Drug: levofloxacin IVPB 500 mg 100 ml IVPB once over 60 mins Volume: 100 ml; Route: ld1 IVPB; Infused Over: 60 mins; Site: right wrist; 19:35 Follow up: Response: No adverse reaction; IV Status: Completed infusion; IV Intake: kj2 100ml 18:10 Drug: Zithromax IVPB 500 mg IVPB once over 1 hrs; mix in 250 mL NS Route: IVPB; Infused kj2 Over: 1 hrs; Site: right wrist; 19:35 Follow up: Response: No adverse reaction; IV Status: Completed infusion kj2 Disposition Summary: 06/04/24 16:26 Transfer Ordered Notes: Transfer Location: [facility](06/04/24 16:26) norberto Reason: Higher level of care(06/04/24 16:26) norberto Condition: Fair(06/04/24 16:26) norberto Problem: new(06/04/24 16:26) norberto Symptoms: have improved(06/04/24 16:26) norberto Accepting Physician: to [facility](06/04/24 19:37) kj2 Diagnosis - Fever, unspecified(06/04/24 16:26) norberto - Hypotension, unspecified - resolved(06/04/24 16:26) norberto - Hydronephrosis with ureteral stricture, not elsewhere classified - right norberto nephrostomy dislodged - Chronic kidney disease, unspecified(06/04/24 16:26) norberto - UTI/ Urinary tract infection, site not specified(06/04/24 16:26) norberto - Pneumonia due to other specified bacteria - right upper and lower(06/04/24 16:26) norberto Forms: - Medication Reconciliation Form norberto - SBAR form norberto Signatures: Dispatcher [employer] EDMS Matthew Alvarez MD MD cha Sims, Lauren, RN RN ld1 Jacki Espinoza RN RN kj2 Corrections: (The following items were deleted from the chart) 12:33 12:32 BASIC METABOLIC PANEL+C.LAB.BRZ ordered. EDMS EDMS 12:33 12:32 CBC+H.LAB.BRZ ordered. EDMS EDMS 12:33 12:32 HEPATIC FUNCTION+C.LAB.BRZ ordered. EDMS EDMS 12:33 12:32 MAGNESIUM+C.LAB.BRZ ordered. EDMS EDMS 12:33 12:33 PROBNP+C.LAB.BRZ ordered. EDMS EDMS 12:33 12:33 PROTIME (+INR)+COAG.LAB.BRZ ordered. EDMS EDMS 12:33 12:33 Troponin High Sensitivity+C.LAB.BRZ ordered. EDMS EDMS 12:33 12:33 BLOOD CULTURE*+BA.LAB.BRZ ordered. EDMS EDMS 12:33 12:33 LACTATE+C.LAB.BRZ ordered. EDMS EDMS 12:33 12:33 Urinalysis+U.LAB.BRZ ordered. EDMS EDMS 12:33 12:33 Chest Single View+RAD.RAD.BRZ ordered. EDMS EDMS 15:02 15:01 levofloxacin IVPB 500 mg 100 ml IVPB once over 60 mins ordered. norberto norberto 15:32 15:27 to marks norberto norberto 15:32 15:27 [facility] norberto norberto 15:32 15:27 Higher level of care norberto norberto 15:32 15:27 Stable norberto norberto 15:32 15:27 new norberto norberto 15:32 15:27 have improved norberto norberto 15:32 15:27 UTI/ Urinary tract infection, site not specified - navas, bilateral nephrostomy norberto norberto 15:32 15:27 Pneumonia due to other specified bacteria - right upper / lower norberto norberto 15:32 15:27 Hypotension, unspecified - resolved norberto norberto 15:32 15:27 Fever, unspecified norberto norberto 15:32 15:27 Chronic kidney disease, unspecified norberto norberto 15:32 15:27 Anemia in chronic kidney disease norberto norberto 15:32 15:27 Anemia, unspecified norberto norberto 15:34 15:03 Chest Abdomen Pelvis Wo Con+CT.RAD.BRZ ordered. EDMS EDMS 16:22 15:34 Inpatient Admission norberto norberto 16:22 15:34 MarksVania roldanammad norberto norberto 16:22 15:34 Telemetry/MedSurg (Inpatient) norberto norberto 16:22 15:34 Fair norberto norberto 16:22 15:34 new norberto norberto 16:22 15:34 have improved norberto norberto 16:22 15:34 Standard norberto norberto 16:22 15:34 norberto norberto 16:22 15:34 Fever, unspecified norberto norberto 16:22 15:34 Chronic kidney disease, unspecified norberto norberto 16:22 15:34 Hypotension, unspecified - resolved norberto norberto 16:22 15:34 Pneumonia due to other specified bacteria norberto norberto 16:22 15:34 UTI/ Urinary tract infection, site not specified - navas, bilateral nephrostomy norberto tubes [facility] 19:37 16:[address] [facility] kj2
--- NOTE | 2024-06-04 15:28 | ER ---
Nurse's Notes [facility] Name: Enzo Person Age: 83 yrs Sex: Male : 1940 Arrival Date: 06/04/2024 Time: 12:22 Bed 19 Private MD: Diagnosis: Fever, unspecified;Hypotension, unspecified-resolved;Hydronephrosis with ureteral stricture, not elsewhere classified-right nephrostomy dislodged;Chronic kidney disease, unspecified;UTI/ Urinary tract infection, site not specified;Pneumonia due to other specified bacteria-right upper and lower Presentation: 06/04 12:35 Chief complaint: EMS states: low blood pressure, lethargy. Coronavirus screen: Client kj2 denies travel out of the [place] in the last 14 days. Ebola Screen: No symptoms or risks identified at this time. Initial Sepsis Screen: Does the patient meet any 2 criteria? No. Patient's initial sepsis screen is negative. Does the patient have a suspected source of infection? No. Patient's initial sepsis screen is negative. 12:35 Method Of Arrival: EMS: [facility] 12:37 Risk Assessment: Do you want to hurt yourself or someone else? Patient reports no kj2 desire to harm self or others. Onset of symptoms was June 03, 2024. Care prior to arrival: Medication(s) given: Normal saline infusion, 1000 mL. 12:37 Acuity: HUMERA 3 kj2 Triage Assessment: 12:39 General: Appears in no apparent distress. Behavior is calm, cooperative. Pain: Denies kj2 pain. Neuro: Level of Consciousness is awake, alert, obeys commands, Oriented to person, place, time, situation. Cardiovascular: Patient's skin is warm and dry. Respiratory: Airway is patent Respiratory effort is even, unlabored. GI: No signs and/or symptoms were reported involving the gastrointestinal system. : Navas in place double nephrostomy. Historical: - Allergies: 12:38 PENICILLINS; kj2 - PMHx: 12:38 Anemia; benign prostatic hyperplasia (UTI); CKD; Hypothyroidism; UTI; kj2 - Immunization history:: Adult Immunizations unknown. - Infectious Disease History:: Denies. - Social history:: Smoking status: Patient denies any tobacco usage or history of. - Family history:: not pertinent. Screenin:41 [facility] ED Fall Risk Assessment (Adult) History of falling in the last 3 months, kj2 including since admission Confusion or Disorientation No (0 pts) Intoxicated or Sedated No (0 pts) Impaired Gait No (0 pts) Mobility Assist Device Used No (0 pt) Altered Elimination No (0 pt) Score/Fall Risk Level 0 - 2 = Low Risk Maintained a safe environment, Hourly rounding (assess needs \T\ fall precautionary measures) done. Abuse screen: Denies threats or abuse. Denies injuries from another. Nutritional screening: No deficits noted. Tuberculosis screening: No symptoms or risk factors identified. Assessment: 12:40 General: see triage assessment. kj2 13:40 Reassessment: Patient appears in no apparent distress at this time. Patient and/or kj2 family updated on plan of care and expected duration. Pain level reassessed. Patient is alert, oriented x 3, equal unlabored respirations, skin warm/dry/pink. 14:40 Reassessment: Patient appears in no apparent distress at this time. Patient and/or kj2 family updated on plan of care and expected duration. Pain level reassessed. Patient is alert, oriented x 3, equal unlabored respirations, skin warm/dry/pink. 15:29 Reassessment: Patient appears in no apparent distress at this time. Patient and/or kj2 family updated on plan of care and expected duration. Pain level reassessed. Patient is alert, oriented x 3, equal unlabored respirations, skin warm/dry/pink. 16:30 Reassessment: Patient appears in no apparent distress at this time. Patient and/or kj2 family updated on plan of care and expected duration. Pain level reassessed. Patient is alert, oriented x 3, equal unlabored respirations, skin warm/dry/pink. 17:30 Reassessment: Patient appears in no apparent distress at this time. Patient and/or kj2 family updated on plan of care and expected duration. Pain level reassessed. Patient is alert, oriented x 3, equal unlabored respirations, skin warm/dry/pink. 18:00 Reassessment: 18fr navas catheter and new leg bag placed using sterile technique, kj2 patient neto well. 18:21 Reassessment: Patient appears in no apparent distress at this time. Patient and/or kj2 family updated on plan of care and expected duration. Pain level reassessed. Patient is alert, oriented x 3, equal unlabored respirations, skin warm/dry/pink. Vital Signs: 12:35 BP 114 / 54; Pulse 80; Resp 18; Temp 98; Pulse Ox 99% on R/A; Weight 54.43 kg; Height 5 kj2 ft. 7 in. ; 13:40 BP 114 / 48; Pulse 81; Resp 18; Pulse Ox 100% ; kj2 14:40 BP 116 / 56; Pulse 78; Resp 18; Pulse Ox 98% ; kj2 16:30 BP 114 / 50; Pulse 78; Resp 18; kj2 17:30 BP 118 / 54; Pulse 76; Resp 18; Pulse Ox 97% ; kj2 18:22 BP 111 / 50; Pulse 70; Resp 18; Temp 98.1; Pulse Ox 98% ; kj2 12:35 Body Mass Index 18.79 (54.43 kg, 170.18 cm) kj2 ED Course: 12:28 Patient arrived in ED. norberto 12:28 Matthew Alvarez MD is Attending Physician. [facility] 12:33 Jacki Espinoza, LUL is Primary Nurse. kj2 12:38 Triage completed. kj2 12:42 Patient has correct armband on for positive identification. Bed in low position. Call kj2 light in reach. Provided Education on: call light, fall prevention. 12:47 Warm blanket given. am7 12:47 EKG done, by ED staff, reviewed by Matthew Alvarez MD. am7 13:23 XRAY Chest (1 view) In Process Unspecified. EDMS 15:32 Niru Giles MD is Hospitalizing Provider. [facility] 15:53 CT Chest Abdomen Pelvis W/O Contrast In Process Unspecified. EDMS 17:01 called [facility] for transfer talked to sp 18:07 1750 Xena Chan accepted pt to [facility] 1750 admin approval Paola cunningham [place] Room 1650 report number [phone]. 18:50 called [facility] for transfer talked to sp Administered Medications: 14:02 Drug: NS 0.9% IV (30 ml/kg) 30 ml/kg IV at bolus once; Sepsis Protocol; to be given as kj2 a bolus over 90 minutes Route: IV; Rate: bolus; Site: right wrist; 19:36 Follow up: IV Status: Completed infusion; IV Intake: 1632ml kj2 14:02 Drug: Rocephin IV 1 grams IV at per protocol once; Given slow IV push per pharmacy kj2 instructions Route: IV; Rate: per protocol; Site: right wrist; 19:36 Follow up: IV Status: Completed infusion; IV Intake: 10ml kj2 15:02 CANCELLED (Duplicate Order): [id number] mg 100 ml IVPB once over 60 mins norberto 16:12 Drug: levofloxacin IVPB 500 mg 100 ml IVPB once over 60 mins Volume: 100 ml; Route: ld1 IVPB; Infused Over: 60 mins; Site: right wrist; 19:35 Follow up: Response: No adverse reaction; IV Status: Completed infusion; IV Intake: kj2 100ml 18:10 Drug: Zithromax IVPB 500 mg IVPB once over 1 hrs; mix in 250 mL NS Route: IVPB; Infused kj2 Over: 1 hrs; Site: right wrist; 19:35 Follow up: Response: No adverse reaction; IV Status: Completed infusion kj2 Medication: 12:41 VIS not applicable for this client. kj2 Intake: 19:35 IV: 100ml; Total: 100ml. kj2 19:36 IV: 10ml; Total: 110ml. kj2 19:36 IV: 1632ml; Total: 1742ml. kj2 Outcome: 15:27 ER care complete, transfer ordered by . norberto 15:34 Decision to Hospitalize by Provider. norberto 16:26 ER care complete, transfer ordered by MD. norberto 19:37 Patient left the ED. kj2 Signatures: Dispatcher [employer] Matthew White MD MD cha Pinkerton, Shawna sp Sims, Lauren RN RN ld1 Jacki Espinoza RN RN kj2 Maribel Abarca am7
--- NOTE | 2024-06-04 16:14 | RAD REPORT ---
EXAM: Chest Abd Pelvis Wo Con CLINICAL INDICATION: Male, 83 years old Cough;Pain TECHNIQUE: CT chest, abdomen and pelvis was performed, without IV contrast, as per department protoco l. Axial, sagittal and coronal reconstructions were obtained. One or more of the following dose reduction techniques were used: Automated exposure control, adjustment of the mA and/or kV according to the patient size, and/or iterative reconstruction. Unless otherwise specified, incidental findings do not require dedicated imaging follow-up. [id number]. COMPARISON: 01/29/2024 FINDINGS: The lack of intravenous contrast limits the sensitivity of this exam for evaluation of solid visceral organs, vascular structures, and retroperitoneum. ---THORAX--- LOWER NECK AND CHEST WALL: Visualized thyroid gland and soft tissues are normal. LUNGS AND AIRWAYS: Consolidative airspace disease in the posterior aspect of the right upper lobe and dependent aspect of the right lower lobe. Nodularity present in the right middle lobe and to a lesser extent scattered in the left lung.,No dominant or clearly suspicious nodule identified. PLEURA: Small right effusion. No pneumothorax. MEDIASTINUM AND LYMPH NODES: No mediastinal mass or fluid collection. Normal size mediastinal, hilar, and axillary lymph nodes. THORACIC AORTA: Ascending thoracic aortic aneurysm measuring 3.8 cm. PULMONARY ARTERIES: Caliber is within normal limits. HEART: Normal heart size. Mild coronary artery calcifications.No significant pericardial effusion. ---ABDOMEN/PELVIS--- UPPER GI: No significant abnormality. LIVER: Benign appearing low density liver lesions. No suspicious mass. GALLBLADDER/BILE DUCTS: No biliary ductal dilatation.? PANCREAS: Atrophy but no acute findings. SPLEEN: Unremarkable. ADRENALS: No adrenal masses. KIDNEYS AND URETERS: Persistent moderate right-sided hydroureteronephrosis despite the presence of th e right ureteral stent. Left nephrostomy tube and left ureteral stent in place. No left-sided hydronephrosis.Bilateral renal scarring. Complex left upper pole renal lesion which is probably a cys t is unchanged.The right-sided nephrostomy tube has pulled out into the soft tissues of the right flank. ABDOMINAL AORTA AND OTHER VESSELS: Mild atherosclerotic changes. PERITONEUM: No abnormal free fluid. No free air. LYMPH NODES: No pathologic lymphadenopathy. ABDOMINAL WALL: Unremarkable SMALL BOWEL/COLON: Small bowel has normal course and caliber. No colonic wall thickening or pericolon ic inflammatory changes. URINARY BLADDER: Catheter tip near the base of the bladder REPRODUCTIVE ORGANS: Severe prostatomegaly. Fluid collection the region of the membranous urethra is similar. ---COMBINED--- MUSCULOSKELETAL: Multilevel degenerative changes in the spine. No acute fracture. ADDITIONAL FINDINGS: None. IMPRESSION: 1. Airspace disease bilaterally though most notably in the right upper right lower lobe consistent wi th pneumonia. 2. The right-sided nephrostomy tube has retracted into the soft tissues of the right flank and should be removed. Moderate right-sided hydroureteronephrosis is present despite the presence of the ureteral stent. 3. Bladder catheter at the extreme base of the bladder. Correlate with catheter output production to ensure that the catheter is within the bladder lumen.
[2024-06-04 19:01] LABS: Influenza A Ag Negative; Influenza B Ag Negative; SARS-CoV-2 Antigen Rapid Res Negative (Negative)
[2024-06-04 19:47] VITALS: BP 111/50; TEMP 98.1; O2SAT 98
[2024-06-04 19:59] LABS: Blood Morphology Comment NOT SEEN (NOT SEEN); Platelet Estimate ADEQ; Toxic Granulation PRESENT; White Blood Cell Scan OK (OK)
== END 2024-06-04 19:37 | disposition short-term general hospital (02) ==
LOC: ER 12:22
DX: J15.8 Pneumonia due to other specified bacteria (principal); N13.1 Hydronephrosis with ureteral stricture, not elsewhere classified; T83.022A Displacement of nephrostomy catheter, initial encounter; N39.0 Urinary tract infection, site not specified; N18.9 Chronic kidney disease, unspecified; Z11.52 Encounter for screening for COVID-19
CPT/HCPCS: 93005; 87040 ×2; 87088; 85025; 81001; 87086; 80048; 36415; 83735; 85610; 80076; 83605; 84484; 83690; 83880; 71250; 74176; 71045; 87428; J7050; J7030; J0696; 96365; 96366; 96367; 96368; 99284

== ENCOUNTER 2024-06-21 11:39 | Day surgery (SDC) | payer OTHER ==
[2024-06-13 16:10] LABS: Absolute Eosinophils 0.3 K/uL (0-0.5); Absolute Lymphocytes (CBC) 1.4 K/uL (0.7-4.9); Absolute Monocytes 0.5 K/uL (0.1-1.3); Absolute Neutrophil 5.2 K/uL (1.8-8.0); Basophils % 0.6 % (0-1.3); Eosinophils % 4.2 % (0-4.4); Hematocrit 28.8 % (39.6-49.0); Hemoglobin 9.8 g/dL (13.6-17.9); Lymphocytes % 19.1 % (15.3-44.8); MCH 32.9 pg (27.0-35.0); MCHC 33.9 g/dL (32.0-36.0); MCV 97.2 fL (80-100); Monocytes % 6.7 % (3.3-12.3); Neutrophils % 69.4 % (41.7-73.7); Nucleated Red Blood Cells % 0.1 % (0-0); Platelets 451 thou/uL (152-406); RBC Red Blood Cell Count 2.97 M/uL (4.33-5.43); Red Cell Distribution Width 15.5 % (12.1-15.2)
[2024-06-13 16:24] LABS: Anion Gap 12.8 mEq/L (5.0-15.0); Potassium 4.8 mEq/L (3.5-5.1)
[2024-06-13 16:49] LABS: PT Prothrombin Time 12.5 SECONDS (10-13.0); Protime INR 1.1
[2024-06-13 17:13] LABS: Specific Gravity 1.014 (1.005-1.030); Sqamous Epithelial None Seen /HPF (None Seen); Urine Bacteria 20-50 /HPF (<20); Urine Bilirubin NEGATIVE (Negative); Urine Blood 3+ (Negative); Urine Clarity Extremely Turbid (Clear); Urine Color Orange (Yellow); Urine Crystals Unidentified Few /HPF (None Seen); Urine Culture Reflex Order REFLEXED; Urine Glucose NEGATIVE (Negative); Urine Ketones NEGATIVE (Negative); Urine Microscopic Reflex YN ORDER UMIC; Urine Mucus 4+ /HPF (None Seen); Urine Nitrite NEGATIVE (Negative); Urine Protein 2+ (Negative); Urine RBC >50 /HPF (None Seen); Urine Urobilinogen Normal (Normal); Urine WBC >50 /HPF (<5); Urine WBC Clump Rare /HPF (None Seen); Urine pH 6.5 (5.0-7.0)
[2024-06-13 21:42] LABS: Platelet Estimate INCR; White Blood Cell Scan OK (OK)
[2024-06-13 21:43] LABS: Blood Morphology Comment NOT SEEN (NOT SEEN)
--- NOTE | 2024-06-13 23:16 | RAD REPORT ---
EXAMINATION: TWO VIEW CHEST XR CLINICAL INDICATION: Male, 83 years old. [facility] pre op for day surgery. Hypertension TECHNIQUE: 2 view radiographs of the chest were performed. COMPARISON: 06/04/2024 FINDINGS: The lungs are well inflated, with improvement of aeration at the right lung. Residual crescentic line ar opacity, may reflect atelectasis. No pneumothorax or sizable effusion. The heart is normal in size. Mediastinal contours are unremarkable. IMPRESSION: Complete improvement right lung airspace opacities suggesting improving
[2024-06-21] MEDS ORDERED: NA CHLORIDE 0.9% 500 ML ONE (12:15)
[2024-06-21] MEDS ORDERED: LIDOCAINE 1% MPF 5 ML VIAL ONE (13:34)
[2024-06-21] MEDS ORDERED: propofoL 200 MG/20 ML VIAL IV ONE (13:34)
[2024-06-21] MEDS ORDERED: FENTANYL CITR 100 MCG/2 ML ONE (13:34)
[2024-06-21] MEDS ORDERED: ONDANSETRON 4 MG/2 ML VIAL ONE (13:34)
[2024-06-21] MEDS: CEFTRIAXONE 1000 MG/VIAL ONE (14:18)
[2024-06-21] MEDS ORDERED: dexAMETHasone 10 MG/ML VIAL ONE (14:26)
[2024-06-21] MEDS ORDERED: Phenylephrine HCl 10 MG/ML 1 ML VIAL ONE (14:26)
[2024-06-21] MEDS ORDERED: NS 0.9% VIAL 10 ML ONE (14:27)
[2024-06-21] MEDS ORDERED: GLYCOPYRROLATE 0.2 MG/ML SYR ONE (14:27)
[2024-06-21 15:14] VITALS: O2SAT 100
--- NOTE | 2024-06-21 15:16 | RAD REPORT ---
EXAM: Fluoroscopy use, Urography Retrograde HISTORY: STENT EXCHANGE COMPARISON: None FINDINGS: Images were sent to PACS, during a fluoroscopically guided Urography Retrograde. No radiolo gist was involved in protocoling or performance of the study, and no radiologist was present for the duration of the procedure. No interpretation of the saved images will be provided. Total fluoroscopy time: 1:01 min. IMPRESSION: Documentation of fluoroscopy use as above. Transcribed Date/Time: 06/21/2024 3:16 PM
--- NOTE | 2024-06-21 15:47 | P.OP ---
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 Principal procedures: Cystoscopy Right antegrade nephrostogram Right 8 Sudanese by 26 cm ureteral stent upsizing and exchange Left antegrade nephrostogram Left 8 Sudanese by 26 cm ureteral stent upsizing and exchange Complex urethral Shell catheter placement over a wire Indications for procedure: 83-year-old gentleman with acute urinary retention and associated detrusor dysfunction in the setting of BPH with LUTS found to have bilateral UVJ obstruction associated with chronic cystitis and history of CIC post bilateral stents placed and exchanged last 02/02/2024 but with malpositioning of urethral Shell catheter contributing to persistence of retention, acute on chronic kidney disease with poor renal drainage bilaterally, and prompting outside hospital placement of bilateral nephrostomy tubes. Since that time, both tubes have been inadvertently dislodged on multiple occasions and have required replacement several times. He now presents with plan to exchange the stents to see if they will allow adequate drainage of the kidneys and preserve his residual renal function with urethral Shell catheter in place. Procedure note: The patient was consented in the preoperative holding area before being transferred to the operative suite where general anesthesia was induced. He was given ceftriaxone 1 g IV antimicrobial prophylaxis, and pneumoboots were provided for DVT prophylaxis. He was placed in the lithotomy position, padded and secured to the table appropriately. The urethral Shell catheter was removed and his genitalia was prepped with Hibiclens before being draped in standard fashion. The bilateral nephrostomy tubes were positioned to be visible intraoperatively. The case has begun using a 22 Sudanese rigid cystoscope to traverse the urethra and navigate via the prostatic urethra ultimately entering the bladder. The following are the cystoscopic findings: Urethra: No stricture disease noted Prostatic urethra: False passage posterior laterally to the left noted, likely the source of catheter malposition on exchange at the nursing facilities or hospitals. Bladder with bilateral ureteral stents in place with some fibrinous debris around them. No other concerning papillary mucosal lesions or stones were noted. I grasped the right ureteral stent tip with an alligator grasper and delivered it to the meatus leaving the proximal coil in the proximal ureter. I advanced a sensor wire via the stent coiling it in the putative renal pelvis where the nephrostomy tube was seen entering via the lower pole calyx coiled in the renal pelvis as well. I then asked nursing to separate the nephrostomy tube from its bag drainage, cleansed the hub with alcohol wipe and then inject 10 cc of 70: 30 Omnipaque with saline to perform an antegrade nephrostogram. Right antegrade nephrostogram: Under live fluoroscopic imaging, with contrast being injected via the nephrostomy tube, the contrast did fill the lower pole calyces and then eventually the renal pelvis and the mid and upper pole calyces. Despite the sensor wire being in place and the patient's prior stenting, after several mi nutes of observation, the contrast failed to drain even beyond the UPJ on the right. As a result, I backloaded the cystoscope over the sensor wire and passed a 8 Sudanese by 26 cm double-J ureteral stent over the wire successfully coiling it within the renal pelvis. An additional coil was seen within the bladder. This did allow appropriate drainage of the contrast within the kidney despite leaving the nephrostomy tube clamped with the contrast in place. I then turned my attention to the patient's left kidney where the stent was emanating from the ureteral orifice. I grasped the tip of that stent and delivered it to the meatus, advancing the sensor wire via the stent into the collecting system on the left. At this point, I performed an antegrade nephrostogram on the left side as before on the right. Left antegrade nephrostogram: Again, under live fluoroscopic imagery, with contrast being injected via the left nephrostomy tube, the contrast did fill the lower pole calyces and eventu ally the renal pelvis and mid and upper pole calyces. Again, despite the sensor wire being in place and the patient's prior stenting, despite several minutes of observation, contrast failed to drain beyond the UPJ on the left. As a result, I attempted to pass an 8 Sudanese by 26 cm double-J stent over the wire into the collecting system, but because of stenosis at the UVJ, I lost access initially. As a result, I utilized a 5 Sudanese ureteral access catheter and again passed the sensor wire into the ureteral orifice and navigated it with some difficulty into the proximal ureter, eventually past clear tortuosity and UPJ obstruction on the left before ultimately getting the wire into the collecting system with some significant difficulty. I then advanced the 8 Sudanese by 26 cm double-J ureteral stent over the wire carefully and with a lot of resistance, up a very stenotic ureter past a stenotic UVJ and beyond a tortuous UPJ ultimately into the collecting system on the left side. A coil was eventually formed fluoroscopically within the renal pelvis with 1 cystoscopically in the bladder. As before, the contrast did decompress from within the collecting system with the stent in place despite the approximate tube being clamped. As a result, I passed the sensor wire back into the patient's bladder under direct vision and then passed a 18 [place]ese [place] tip catheter over the wire int o the bladder and a confirmed position. The catheter was connected to a floor bag, and the patient was taken out of the lithotomy position before being awakened from general anesthesia. He was then transferred to a stretcher before being transferred to the recovery room in good condition. Complications: None Discharge disposition: The urethral Shell catheter was malpositioned because of significant obstruction due to BPH and a prostatic urethral false passage that had been created. This may make future traditional catheter placements more challenging, but this likely could be overcome using a minimum of an 18 or 20 Sudanese coud tipped Shell catheter. To that end, he and his daughter wish future catheter exchanges to be performed in the urology clinic as opposed to by the nursing facility. Significant UVJ obstruction bilaterally was observed and at least UPJ obstruction on the left was observed, both of which contributed to bilateral ureteral obstruction and lack of appropriate drainage contributing to ongoing hydronephrosis. As a result, continued stenting would be required. Plan: We will/clamp the nephrostomy tubes bilaterally and allow 5-7 days before repeating a serum BMP to assess renal function. If his renal function remains relatively stable, we will remove the nephrostomy tubes within the next 2 weeks.
[2024-06-21] MEDS ORDERED: CODEINE 30MG/APAP 300MG TAB PO PRN (15:48)
[2024-06-21 16:27] VITALS: BP 115/55; TEMP 98.2
== END 2024-06-21 17:10 | disposition home or self-care (01) ==
LOC: OR 11:39
PROVIDERS: ATTEND Urology
PROC: 0T788DZ Dilation of Bilateral Ureters with Intraluminal Device, Via Natural or Artificial Opening Endoscopic (ICD-10-PCS; principal; 2024-06-21 13:30)
DX: N13.5 Crossing vessel and stricture of ureter without hydronephrosis (principal); N13.30 Unspecified hydronephrosis; N31.8 Other neuromuscular dysfunction of bladder; R33.9 Retention of urine, unspecified; N40.1 Benign prostatic hyperplasia with lower urinary tract symptoms; N36.5 Urethral false passage
CPT/HCPCS: 87088 ×2; 85025; 81001; 87086 ×2; 80048; 36415; 85610; 71046; 74420; 52332; A4216; J2704; J2003; J2371; J3010; J1100; J2405; J7040; J0696